=== PATIENT | male | born 1960 | race Caucasian/White ===

== ENCOUNTER → 2017-10-18 | Outpatient (REF) | payer MEDICARE, MEDICAID ==
[2017-08-13 12:51] VITALS: BMI 49.3
[~2017-10-18] MED LIST: ACE325 PO; ACET-1935 PO; ACET-1966 PO; ACET325S18 PO; ALB18R INH; ALP25 PO; ALPR-429 PO; ASPI-715 PO; ATOR40TA69 PO; AUG500 PO; AUG875 PO; BACDS PO; BANA1PAC PO; BIS10S PR; CARB15DR93 OT; CEF300 PO; CEFD300C35 PO; CEFE1FRO2 IV; CEFI400C PO; CEFT1VIA57 IV; CEP500 PO; CEPH-13 PO; CEPH500C24 PO; CHOL500050 PO; CITA-139 PO; CITA-155 PO; CITA-156 PO; CLOP75TA PO; CLOP75TA43 PO; COL30T TOP; CYC10 PO; CYCL10TA29 PO; DABI150C3 PO; DIA5 PO; DIAZ-305 PO; DIPH-464 PO; DIPH-740 PO; DOC100 PO; DOCU-416 PO; DULO30CA6 PO; DULO60CA7 PO; Diabetic Supplies; Docusate Sodium PO; ENO100I IV; ENOX120D5 SQ; ENOX120D8 SQ; ERYT400T73 PO; FAM20 PO; FAMO-67 PO; FAMO10TA89 PO; FAMO20TA28 PO; FENT-21 TD; FENT-23 TD; FERR325T14 PO; FIB PO; FLU150 PO; FLUC100T39 PO; FLUC200T52 PO; FLUC200T56 PO; FURO20TA19 PO; FURO40TA35 PO; GAB300 PO; GABA-1 PO; GABA-503 PO; GABA-549 PO; GEMF600T91 PO; GLY5 PO; HYDR12.561 PO; HYDR2TAB4 PO; HYDR2TAB74 PO; HYOS0.3738 PO; INSU100C10 SQ; INSU100C12 SQ; INSU100C14 SQ; INSU100I28 SQ; INSU100I35 SQ; INSU100I5 SQ; INSU100I5 SUBQ; INSU100V24 SQ; INSU100V28 SQ; LACT10SO58 PO; LANI SC; LANI SQ; LANI SUBQ; LEVI SUBQ; LEVO-85 PO; LEVO250T55 PO; LID5T TOP; LIDO30CR3 TP; LIDO5CRE13 TP; LIN600 PO; LISI5TAB25 PO; LOP2 PO; LOR5 PO; LOR5/325 PO; MAGN400T36 PO; MECL-111 PO; MECL12.5 PO; MET10 PO; MET500 PO; METF-1 PO; METF-410 PO; METF-420 PO; METH1TAB65 PO; METO-233 PO; METO-253 PO; METO-734 PO; METO-785 PO; METO25TA93 PO; METR-160 PO; MIR PO; MORP-46 PO; MORS15 PO; NA P133E21 RC; NAPR-724 PO; NEED-653; NEOPT TOP; NIT100 PO; NITR-105 PO; NITR-57; NITR-57 PO; NOR10 PO; NORT50CA40 PO; NYST15CR32 TOP; NYST15CR32 TP; NYST15PO12 TP; NYST15PO4 TP; NYST1POW24 TOP; NYST1POW27 TOP; OMEP-218 PO; ONDA4TAB PO; ONDA4TAB97 PO; OXYB10TA21 PO; OXYB5TAB86 PO; OXYC-373 PO; OXYC-375 PO; OXYC-489 PO; OXYC-857 PO; OXYC-865 PO; OXYC-870 PO; OXYC10TA67 PO; OXYGENHOME INH; OXYM3SPR NS; PAN40 PO; PANT40TA63 PO; PANT40TA65 PO; PER PO; PHEN-529 PO; PHENA200 PO; POLY17PO25 PO; POLY17PO33 PO; POTA20TA85 PO; PRED20TA6 PO; PRO25 PO; PROM-110 PO; PROP10TA58 PO; RIVA10TA PO; RIVA20TA PO; SITA100T9 PO; STOOL SOFTNER; SUCR1TAB PO; SULF-198 PO; SULF1TAB24 PO; SUMA50TA35 PO; TEMA-55 PO; TETR-30 PO; TIGE50VI6 IV; TRAM-420 PO; TRAZ-156 PO; Trimethoprim/Sulfamethoxazole PO; VER40 PO; VERA80TA25 PO; WAR5 PO; WARF3TAB43; WHEE1EAC19 MC; ZOL5 PO; [UNRECOGNIZED DRUG - CODE] IR; [UNRECOGNIZED DRUG - CODE] PO; [UNRECOGNIZED DRUG - CODE] PO; [UNRECOGNIZED DRUG - CODE] TOP; [UNRECOGNIZED DRUG - OTHER] PO; [UNRECOGNIZED DRUG - REMARK]; [UNRECOGNIZED DRUG - SUPPLY]
== END ==
LOC: ZZSENDIN 17:52
PROVIDERS: ATTEND Nurse Practitioner Family
DX: R10.9 Unspecified abdominal pain (principal); R82.90 Unspecified abnormal findings in urine
CPT/HCPCS: 81001; 82040; 82150; 82247; 82310; 82374; 82435; 82565; 82947; 83690; 84075; 84132; 84155; 84295; 84450; 84460; 84520

== ENCOUNTER → 2017-10-19 | Outpatient (CLI) | payer MEDICARE, MEDICAID ==
[2017-08-13 12:51] VITALS: BMI 49.3
[~2017-10-19] MED LIST changes: +FERR-53 PO; -FERR325T14 PO
[2017-10-19 16:08] LABS: PLATELET COUNT, AUTOMATED 334 K/uL (150-450)
== END ==
LOC: LAB 15:18
PROVIDERS: ATTEND Nurse Practitioner Family
DX: N39.0 Urinary tract infection, site not specified (principal); B96.89 Other specified bacterial agents as the cause of diseases classified elsewhere; R10.9 Unspecified abdominal pain
CPT/HCPCS: 36415; 82040; 82247; 82310; 82374; 82435; 82565; 82947; 84075; 84132; 84155; 84295; 84450; 84460; 84520; 85025; 87077; 87088; 87186

== ENCOUNTER 2017-10-20 03:04 | Emergency (ER) | payer MEDICARE, MEDICAID ==
[2017-08-13 12:51] VITALS: Ht 170.2 cm; Wt 120.2 kg
[~2017-10-20] VITALS: Ht 170.2 cm; Wt 120.2 kg
[~2017-10-20 03:04] MED LIST changes: -CLOP75TA PO; -DULO60CA7 PO
[2017-10-20] MEDS ORDERED: ACETAMINOPHEN 500 MG TAB PO ONE (03:55)
[2017-10-20] MEDS ORDERED: NS 0.9% 50 ML VIAL 100 ML ONE (04:04)
[2017-10-20] MEDS ORDERED: IOPAMIDOL 76% 75 ML INFUS BTL 75 ML ONE (04:04)
--- NOTE | 2017-10-20 04:11 | EKG ---
FACILITY: [facility] PATIENT NAME: GEORGE ROY : [id number] MR: [id number] V: [id number] EXAM DATE: ORDERING PHYSICIAN: SOHA OTERO TECHNOLOGIST: JANE Garcias Reason : SOB Blood Pressure : / mmHG Vent. Rate : 111 BPM Atrial Rate : 111 BPM P-R Int : 122 ms QRS Dur : 082 ms QT Int : 344 ms P-R-T Axes : 034 094 054 degrees QTc Int : 467 ms Sinus tachycardia Rightward axis Nonspecific ST abnormality Abnormal ECG When compared with ECG of 14-AUG-2017 19:39, Nonspecific T wave abnormality no longer evident in Anterior leads Confirmed by RODRIGO BARRIGA ([id number]) on 10/20/2017 1:52:37 PM Referred By: BRANDEN Confirmed By:RODRIGO BARRIGA
[2017-10-20] MEDS ORDERED: INSU100I35 SQ (04:48)
[2017-10-20] MEDS ORDERED: NYST15PO4 TP (04:48)
[2017-10-20] MEDS ORDERED: GABA-549 PO (04:48)
[2017-10-20] MEDS ORDERED: CLOP75TA PO (04:48)
[2017-10-20] MEDS ORDERED: RIVA20TA PO (04:48)
[2017-10-20] MEDS ORDERED: DULO60CA7 PO (04:48)
[2017-10-20] MEDS ORDERED: oxyCODONE HCL 5 MG CAP PO ONE ×2 (04:50→09:10)
--- NOTE | 2017-10-20 05:19 | ER Report ---
History and Physical Time Seen By MD: 03:20 Hx. of Stated Complaint: PATIENT STATES HE HAS HAD A FEVER OF 102, HE HAS BEEN HAVING GENERAL BODY ACHES FOR 3DAYS. PATIENT HAS ALSO VOMITED. PATIENT WAS SEEN AT HIS PCP OFFICE YESTERDAY AND DIAGNOSED WITH A UTI. PATIENT CAME UP BECAUSE HE IS HAVING A LOT OF PAIN. PATIENT DID NOT TAKE ANY MEDICATION TO HELP WITH FEVER. PATIENT HAS A CHRONIC DECUB ULCER ON HIS COCCYX. (SOHA OTERO MD) HPI/ROS This is a 57-year-old male with an extensive medical history and multiple chronic medical issues. He presents to the emergency department with an overall feeling unwell. It is difficult to elicit what is an acute complaint versus chronic. He states that he has had a worsening of his chronic pain but does not describe focal pain. Also states that he has been increasingly more short of breath for the past 3 days and earlier yesterday developed a fever. He saw his primary provider who obtained lab data to include a UA. His primary provider called him and said that she wanted to treat him with antibiotics for a urinary tract infection. He denies chest pain, abdominal pain, or nausea vomiting or diarrhea. He states that he is compliant with his medications. He has not picked up his antibiotic for his urinary tract infection that was given to him earlier yesterday. 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 (ENRICO FATIMA MD) Allergies: Coded Allergies: vancomycin (Verified Allergy, Severe, Respiratory arrest due to bronchospasm, 10/20/17) Respiratory arrest due to bronchospasm ciprofloxacin (Verified Allergy, Intermediate, TINGLING, 10/20/17) clindamycin (Verified Allergy, Intermediate, RASH, 10/20/17) perflutren (Verified Adverse Reaction, Severe, Respiratory Arrest, 10/20/17) amoxicillin (Verified Adverse Reaction, Mild, N/V/D, 10/20/17) 07/2017: Pt tolerated Unasyn without difficulty clavulanic acid (Verified Adverse Reaction, Mild, N/V/D, 10/20/17) Uncoded Allergies: contrast definity (Allergy, Severe, MENTAL STATUS CHANGES, 08/15/17) went unresponsive Home Meds Active Scripts NYSTATIN [id number] UNT/ML Topical Cream (NYSTATIN 799064 UNT/ML Topical Cream) 15 Gm Cream..g., 1 JAEL TOP BID, #60 GM 5 Refills Prov:LENIN ANTONIO APRN-C 10/19/17 Cephalexin (KEFLEX) 500 Mg Capsule, 1 CAP PO BID, #20 CAP 0 Refills Prov:LENIN ANTONIO APRN-C 10/19/17 Oxycodone Hcl 10 Mg Tab (OXYCODONE HCL 10 MG TAB) 10 Mg Tablet, 1 TAB PO Q6H Y for PAIN, #120 TAB 0 Refills Prov:LENIN ANTONIO APRN-C 10/13/17 Potassium Chloride (KLOR-CON M20) 20 Meq Tab.er.prt, 1 TAB PO QDAY, #90 TAB 1 Refill Prov:LENIN ANTONIO APRN-C 10/05/17 Pantoprazole Sodium (PANTOPRAZOLE SODIUM) 40 Mg Tablet.dr, 40 MG PO QDAY, #90 TAB.SR 1 Refill Prov:LENIN ANTONIO APRN-C 10/05/17 Citalopram Hydrobromide (CITALOPRAM HBR) 20 Mg Tablet, 1 TAB PO DAILY, #90 TAB 1 Refill Prov:LENIN ANTONIO APRN-C 09/29/17 Oxygen (OXYGEN) Inha, 3 L INH DAILY, #1 EACH Prov:LENIN ANTONIO APRN-C 06/28/17 Furosemide (LASIX) 40 Mg Tablet, 1 TAB PO BID, #180 TAB 1 Refill Prov:LENIN ANTONIO APRN-C 05/31/17 Atorvastatin Calcium (ATORVASTATIN CALCIUM) 40 Mg Tablet, 1 TAB PO QHS, #90 TAB 1 Refill Prov:LENIN ANTONIO APRN-C 04/12/17 Metoprolol Succinate (TOPROL XL) 50 Mg Tab.er.24h, 0.5 TAB PO QDAY, #30 TAB 5 Refills Prov:LENIN ANTONIO APRN-C 03/20/17 Carbamide Peroxide (EAR WAX REMOVAL) 15 Ml Drops, 3 ML OT BID for 5 Days, #1 BOTTLE Prov:ELHAM CASH MD 03/16/17 [Diabetic Supplies] No Conflict Check Prov:LENIN ANTONIO APRN [facility] 03/06/17 Metformin Hcl (METFORMIN HCL) 1,000 Mg Tablet, 1 TAB PO BID, #180 TAB 4 Refills Prov:MERLE CULVER MD 12/07/16 Magnesium Oxide (MAGNESIUM OXIDE) 400 Mg Tablet, 1 TAB PO TID, #180 TAB 2 Refills Prov:LENIN ANTONIO APRN [facility] 11/15/16 Ferrous Sulfate (FERROUS SULFATE) 325 Mg Tablet, 1 TAB PO TID, #60 TAB 2 Refills Prov:LENIN ANTONIO APRN [facility] 11/15/16 [place], Insulin Disposable (Bd Ultra-Fine Pen Needle) 1 Each Dis.needle, MISC QDAY, #100 3 Refills Use Daily with insulin pens Prov:LENIN ANTONIO APRN [facility] 09/16/15 Reported Medications Rivaroxaban 20 Mg (XARELTO 20 MG) 20 Mg Tablet, 20 MG PO QDAY, TAB 10/20/17 Gabapentin (GABAPENTIN) 300 Mg Capsule, 1200 MG PO BID, CAPSULE 10/20/17 Insulin Aspart (NOVOLOG FLEXPEN) 100 Unit/1 Ml Insuln.pen, 15-30 UNIT SQ TIDAC 10/20/17 Nystatin 100,000 Unit/Gm Top Powder (NYSTATIN 100,000 UNIT/GM TOP POWDER) 15 Gm Powder, 1 JAEL TP TID, TUBE 10/20/17 Duloxetine HCl (Duloxetine HCl) 60 Mg Capsule.dr, 30 MG PO QDAY 10/20/17 Clopidogrel Bisulfate (CLOPIDOGREL) 75 Mg Tablet, 1 TAB PO QDAY, TAB 10/20/17 Discontinued Reported Medications Warfarin Sodium (WARFARIN SODIUM) 3 Mg Tablet 09/26/17 Insulin Detemir (Levemir Flextouch) 100 Unit/1 Ml Insuln.pen, 65 SUBQ QPM 08/12/17 Insulin Detemir (Levemir Flextouch) 100 Unit/1 Ml Insuln.pen, 70 SUBQ QAM 08/12/17 Gabapentin (GABAPENTIN) 300 Mg Capsule, 600 MG PO QID, CAPSULE 08/12/17 Discontinued Scripts Trazodone Hcl (TRAZODONE HCL) 50 Mg Tablet, 1 TAB PO QHS Y for INSOMNIA, #90 TAB 1 Refill Prov:LENIN ANTONIO APRN-C 10/19/17 Insulin Aspart (NOVOLOG FLEXPEN) 100 Unit/1 Ml Insuln.pen, 30 UNIT SQ TIDAC, # 15 EACH 12 Refills Prov:LENIN ANTONIO APRN-C 10/19/17 Collagenase (Santyl) 250 Unit/Gram Oint...g., 1 JAEL TOP DAILY, #60 G Prov:LENIN ANTONIO APRN-C 09/21/17 Oxycodone Hcl 10 Mg Tab (OXYCODONE HCL 10 MG TAB) 10 Mg Tablet, 1 TAB PO Q6H Y for PAIN, #120 TAB 0 Refills Prov:LENIN ANTONIO APRN-C 06/30/17 Reviewed Nurses Notes: Yes Old Medical Records Reviewed: Yes (SOHA OTERO MD) Hx Smoking: No Smoking Status: Never Smoker Exposure to Second Hand Smoke?: Yes Hx Substance Use Disorder: No Hx Alcohol Use: Yes (SOHA OTERO MD) Constitutional Vital Sign - Last 24 Hours 10/20/17 10/20/17 10/20/17 10/20/17 03:06 03:08 03:17 03:19 Temp 100.1 Pulse 120 122 Resp 24 B/P (MAP) 143/64 (90) 143/64 139/82 (101) Pulse Ox 91 92 10/20/17 10/20/17 10/20/17 10/20/17 03:30 03:34 03:49 04:00 Pulse 122 114 B/P (MAP) 133/74 (93) 132/69 (90) Pulse Ox 93 90 10/20/17 10/20/17 10/20/17 10/20/17 04:34 04:49 04:54 05:00 Pulse ??? 109 ??? B/P (MAP) ???/??? (1665) Pulse Ox 92 94 94 10/20/17 10/20/17 10/20/17 10/20/17 05:09 05:24 05:30 05:39 Pulse 107 102 101 B/P (MAP) 141/74 (96) Pulse Ox 94 94 96 10/20/17 10/20/17 10/20/17 10/20/17 05:44 05:48 05:49 05:59 Temp 99.4 99.4 Pulse 104 98 Pulse Ox 94 10/20/17 10/20/17 10/20/17 10/20/17 06:00 06:44 06:49 07:00 Pulse 109 103 B/P (MAP) 126/79 (95) 121/61 (81) Pulse Ox 92 93 10/20/17 10/20/17 10/20/17 10/20/17 07:04 07:19 07:30 07:34 Pulse 100 95 96 B/P (MAP) 111/70 (84) Pulse Ox 93 94 94 10/20/17 10/20/17 10/20/17 08:09 11:01 11:15 Temp 98.6 Pulse 111 B/P (MAP) 140/107 (118) Pulse Ox 90 Intake and Output 10/20/17 10/20/17 10/21/17 15:00 23:00 07:00 Intake Total 100 ml Balance 100 ml (ENRICO FATIMA MD) Physical Exam General Appearance: The patient is alert, has no immediate need for airway protection and no signs of toxicity. Eyes: Pupils equal and round no pallor or injection. ENT, Mouth: Mucous membranes are moist. Respiratory: There are no retractions, lungs are clear to auscultation. Cardiovascular: Tachycardic with regular rhythm. Gastrointestinal: Abdomen is soft and non tender, no masses, bowel sounds normal. : perineum is erythematous and there is diffuse patches of yeast. No TTP Skin: Warm and dry, stage 2 decubitus ulcer on the sacrum Musculoskeletal: Neck is supple non tender. Extremities are nontender, nonswollen and have full range of motion. DIFFERENTIAL DIAGNOSIS: After history and physical exam differential diagnosis was considered for adult fever including but not limited to viral syndromes including influenza, urinary tract infection, pneumonia and sepsis. (SOHA OTERO MD) Medical Decision Making Data Points Result Diagram: 10/20/17 0510 10/20/17 0510 Laboratory Hematology Test 10/20/17 04:28 10/20/17 05:00 10/20/17 05:10 10/20/17 09:09 Urine Color Yellow Urine Clarity Clear Urine pH 6.0 pH (4.8-9.5) Urine Specific [place] 1.022 Urine Protein Negative mg/dL (NEGATIVE) Urine Glucose (UA) 500 mg/dL (NEGATIVE) Urine Ketones Negative mg/dL (NEGATIVE) Urine Blood Large (NEGATIVE) Urine Nitrite Positive (NEGATIVE) Urine Bilirubin Negative (NEGATIVE) Urine Urobilinogen Negative mg/dL (0.2-1.9) Urine Leukocyte Esterase Moderate (NEGATIVE) Urine RBC 30 /HPF (0-2/HPF) Urine WBC 44 /HPF (0-5/HPF) Urine Squamous Epithelial Cells Few /LPF (NONE-FEW) Urine Transitional Epithelial Cells Few /LPF (NONE-FEW) Urine Bacteria Moderate /HPF (NONE-FEW) Urine Mucus None /HPF (NONE-FEW) Influenza Type A Antigen Negative (NEGATIVE) Influenza Type B Antigen Negative (NEGATIVE) Red Blood Count 4.56 M/uL (4.00-5.60) Mean Corpuscular Volume 75.7 fL (80.0-96.0) Mean Corpuscular Hemoglobin 24.9 pg (26.0-33.0) Mean Corpuscular Hemoglobin Concent 32.9 g/dL (32.0-36.0) Red Cell Distribution Width 18.6 % (11.5-14.5) Mean Platelet Volume 6.7 fL (7.2-11.1) Neutrophils (%) (Auto) 88.1 % (39.4-72.5) Lymphocytes (%) (Auto) 5.2 % (17.6-49.6) Monocytes (%) (Auto) 5.5 % (4.1-12.4) Eosinophils (%) (Auto) 0.4 % (0.4-6.7) Basophils (%) (Auto) 0.8 % (0.3-1.4) Nucleated RBC Relative Count (auto) 0.0 /100WBC Neutrophils # (Auto) 9.7 K/uL (2.0-7.4) Lymphocytes # (Auto) 0.6 K/uL (1.3-3.6) Monocytes # (Auto) 0.6 K/uL (0.3-1.0) Eosinophils # (Auto) 0.0 K/uL (0.0-0.5) Basophils # (Auto) 0.1 K/uL (0.0-0.1) Nucleated RBC Absolute Count (auto) 0.00 K/uL Peripheral Blood Smear No Y/N Sodium Level 130 mmol/L (137-145) Potassium Level 4.8 mmol/L (3.5-5.0) Chloride Level 92 mmol/L (98-107) Carbon Dioxide Level 27 mmol/L (22-30) Blood Urea Nitrogen 16 mg/dl (9-21) Creatinine 0.50 mg/dl (0.66-1.25) Glomerular Filtration Rate Calc > 60.0 Random Glucose 353 mg/dl (75-110) Lactate 0.9 mmol/L (0.7-2.1) Calcium Level 8.6 mg/dl (8.4-10.2) Total Bilirubin 0.6 mg/dl (0.2-1.3) Aspartate Amino Transf (AST/SGOT) 16 U/L (0-35) Alanine Aminotransferase (ALT/SGPT) 26 U/L (0-56) Alkaline Phosphatase 200 U/L (0-126) Troponin I < 0.012 ng/ml Total Protein 7.0 gm/dl (6.3-8.2) Albumin 3.3 g/dl (3.5-5.0) Prothrombin Time 15.8 seconds (12.0-14.4) Prothromb Time International Ratio 1.25 Activated Partial Thromboplast Time 34 seconds (23-35) D-Dimer Quantitative (PE/DVT) 0.96 ug/ml (0-0.50) Test 10/20/17 09:29 Magnesium Level 1.6 mg/dl (1.7-2.2) Chemistry Test 10/20/17 04:28 10/20/17 05:00 10/20/17 05:10 10/20/17 09:09 Urine Color Yellow Urine Clarity Clear Urine pH 6.0 pH (4.8-9.5) Urine Specific [place] 1.022 Urine Protein Negative mg/dL (NEGATIVE) Urine Glucose (UA) 500 mg/dL (NEGATIVE) Urine Ketones Negative mg/dL (NEGATIVE) Urine Blood Large (NEGATIVE) Urine Nitrite Positive (NEGATIVE) Urine Bilirubin Negative (NEGATIVE) Urine Urobilinogen Negative mg/dL (0.2-1.9) Urine Leukocyte Esterase Moderate (NEGATIVE) Urine RBC 30 /HPF (0-2/HPF) Urine WBC 44 /HPF (0-5/HPF) Urine Squamous Epithelial Cells Few /LPF (NONE-FEW) Urine Transitional Epithelial Cells Few /LPF (NONE-FEW) Urine Bacteria Moderate /HPF (NONE-FEW) Urine Mucus None /HPF (NONE-FEW) Influenza Type A Antigen Negative (NEGATIVE) Influenza Type B Antigen Negative (NEGATIVE) White Blood Count 11.0 k/uL (4.5-11.0) Red Blood Count 4.56 M/uL (4.00-5.60) Hemoglobin 11.3 g/dL (14.0-18.0) Hematocrit 34.5 % (42.0-52.0) Mean Corpuscular Volume 75.7 fL (80.0-96.0) Mean Corpuscular Hemoglobin 24.9 pg (26.0-33.0) Mean Corpuscular Hemoglobin Concent 32.9 g/dL (32.0-36.0) Red Cell Distribution Width 18.6 % (11.5-14.5) Platelet Count 295 K/uL (150-450) Mean Platelet Volume 6.7 fL (7.2-11.1) Neutrophils (%) (Auto) 88.1 % (39.4-72.5) Lymphocytes (%) (Auto) 5.2 % (17.6-49.6) Monocytes (%) (Auto) 5.5 % (4.1-12.4) Eosinophils (%) (Auto) 0.4 % (0.4-6.7) Basophils (%) (Auto) 0.8 % (0.3-1.4) Nucleated RBC Relative Count (auto) 0.0 /100WBC Neutrophils # (Auto) 9.7 K/uL (2.0-7.4) Lymphocytes # (Auto) 0.6 K/uL (1.3-3.6) Monocytes # (Auto) 0.6 K/uL (0.3-1.0) Eosinophils # (Auto) 0.0 K/uL (0.0-0.5) Basophils # (Auto) 0.1 K/uL (0.0-0.1) Nucleated RBC Absolute Count (auto) 0.00 K/uL Peripheral Blood Smear No Y/N Glomerular Filtration Rate Calc > 60.0 Lactate 0.9 mmol/L (0.7-2.1) Calcium Level 8.6 mg/dl (8.4-10.2) Total Bilirubin 0.6 mg/dl (0.2-1.3) Aspartate Amino Transf (AST/SGOT) 16 U/L (0-35) Alanine Aminotransferase (ALT/SGPT) 26 U/L (0-56) Alkaline Phosphatase 200 U/L (0-126) Troponin I < 0.012 ng/ml Total Protein 7.0 gm/dl (6.3-8.2) Albumin 3.3 g/dl (3.5-5.0) Prothrombin Time 15.8 seconds (12.0-14.4) Prothromb Time International Ratio 1.25 Activated Partial Thromboplast Time 34 seconds (23-35) D-Dimer Quantitative (PE/DVT) 0.96 ug/ml (0-0.50) Test 10/20/17 09:29 Magnesium Level 1.6 mg/dl (1.7-2.2) Coagulation Test 10/20/17 09:09 Prothrombin Time 15.8 seconds Prothromb Time International Ratio 1.25 Activated Partial Thromboplast Time 34 seconds D-Dimer Quantitative (PE/DVT) 0.96 ug/ml Urinalysis Test 10/20/17 04:28 Urine Color Yellow Urine Clarity Clear Urine pH 6.0 pH (4.8-9.5) Urine Specific [place] 1.022 Urine Protein Negative mg/dL (NEGATIVE) Urine Glucose (UA) 500 mg/dL (NEGATIVE) Urine Ketones Negative mg/dL (NEGATIVE) Urine Blood Large (NEGATIVE) Urine Nitrite Positive (NEGATIVE) Urine Bilirubin Negative (NEGATIVE) Urine Urobilinogen Negative mg/dL (0.2-1.9) Urine Leukocyte Esterase Moderate (NEGATIVE) Urine RBC 30 /HPF (0-2/HPF) Urine WBC 44 /HPF (0-5/HPF) Urine Squamous Epithelial Cells Few /LPF (NONE-FEW) Urine Transitional Epithelial Cells Few /LPF (NONE-FEW) Urine Bacteria Moderate /HPF (NONE-FEW) Urine Mucus None /HPF (NONE-FEW) (ENRICO FATIMA MD) Microbiology Microbiology Date/Time Source Procedure Growth Status 10/20/17 05:10 Blood Blood Culture - Preliminary NO GROWTH SO FAR, SET LATE. REINCUBATED Resulted 10/20/17 05:00 Blood Blood Culture - Preliminary NO GROWTH SO FAR, SET LATE. REINCUBATED Resulted (ENRICO FATIMA MD) EKG/Imaging EKG Interpretation 12 lead EKG: Rhythm: sinus tachycardia Luana: normal QRS: normal ST segments: non specific t wave flattening Same as 08/14/17 Monitor Interpretation: Sinus Tachycardia (SOHA OTERO MD) Imaging CTA of the chest for PE: IMPRESSION: 1. Negative CTA for PE. 2. Interval development of numerous parenchymal and subpleural roundish noncavitating soft tissue densities. In the context of tachycardia and fever the possibility of septic emboli is raised. Other infectious or inflammatory processes not excluded. I doubt these represent metastatic changes. Recommend clinical correlation and appropriate follow-up. Ultrasound of upper and lower extremities: There is no signs of DVT in either upper or lower extremities. (ENRICO FATIMA MD) ED Course/Re-evaluation ED Course CT of the chest revealed septic emboli most likely. Patient was given meropenem gram IV. Ultrasound of bilateral upper and lower extremities did not reveal any DVT. 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 I discussed the case with Dr. Steiner, hospitalist here at [facility]. He feels the patient would be best served going back to [facility] where he can receive a higher level of care and vascular surgery if needed. She is sent to [facility] on 08/16/2017 for sepsis. At that time Dr. Nails had discussed the case with Dr. Patel (CT surgery) about the patient and he agreed that he needed to be transferred to [facility] for higher level of care. Case had been discussed with Dr. Landin (Hospitalist) who has accepted him. I then discussed the case with Dr. Hilton, hospitalist at [facility]. She requested I call the vascular surgeon. I then talked to Dr. Briggs CV surgeon and he agrees to accept the patient. I then discussed the case with Dr. Hilton at 1250. She accepts patient. Report given. Patient will be transferred to [facility] for further evaluation and treatment. Re-evaluation Medical decision-making includes but not to pulmonary embolus, septic emboli, pneumonia, sepsis. Decision to Disposition Date: Oct 20, 2017 Decision to Disposition Time: 13:10 (ENRICO FATIMA MD) Depart Departure Latest Vital Signs Vital Signs Date Time Temp Pulse Resp B/P (MAP) Pulse Ox O2 Delivery O2 Flow Rate FiO2 10/20/17 11:15 111 90 10/20/17 11:01 140/107 (118) 10/20/17 08:09 98.6 10/20/17 03:08 24 (ENRICO FATIMA MD) Impression: Primary Impression: Septic pulmonary embolism Condition: Condition Unchanged Disposition: XFER TO ACUTE CARE HOSPITAL Referrals: LENIN ANTONIO APRN [employer] LEADER-C (PCP) Problem Qualifiers Primary Impression: Septic pulmonary embolism Chronicity: acute Acute cor pulmonale presence: without acute cor pulmonale Qualified Codes: I26.90 - Septic pulmonary embolism without acute cor pulmonale SOHA OTERO MD Oct 20, 2017 05:19 ENRICO FATIMA MD Oct 20, 2017 12:30
[2017-10-20 05:20] LABS: PLATELET COUNT, AUTOMATED 295 K/uL (150-450)
[2017-10-20] MEDS ORDERED: cefTRIAXone 1 GM VIAL IVP ONE (06:15)
--- NOTE | 2017-10-20 07:31 | RADIOLOGY IMAGING REPORT ---
FACILITY: [facility] [place] PATIENT NAME: Rodrigue Phillips : 1960 MR: [id number] V: [id number] EXAM DATE: ORDERING PHYSICIAN: SOHA OTERO TECHNOLOGIST: Location: [facility] Patient: Rodrigue Phillips : 1960 Visit/Account:[id number] Date of Sevice: 10/20/2017 CTA CHEST WW/O CNTR (PULM ANG) HISTORY: acute sob with tachycardia and fever CTA CHEST WW/O CNTR (PULM ANG) TECHNIQUE: CTA chest with contrast. Axial imaging from the apex through the upper abdomen. 3D coron al slab MIPs and 2D reconstructions in the coronal and sagittal planes were also created. CONTRAST: 75 cc of [id number] COMPARISON: 07/23/2017 One of the following dose optimization techniques was utilized in the performance of this exam: Autom ated exposure control; adjustment of the mA and/or kV according to the patient's size; or use of an i terative reconstruction technique. Specific details can be referenced in the facility's radiology C T exam operational policy. FINDINGS: Vessels: No obvious emboli in the visualized pulmonary vasculature. Overall appearance of the 8 g si milar to the CT scan from 07/23/2017 Heart and pericardium: Negative Mediastinum and hilum: Negative. Lymph nodes: Scattered anterior mediastinal pretracheal and hilar lymph nodes. Largest paratracheal lymph node (image 99 series 5) measuring 1.8 cm slightly increasing in size when compared to the prev ious CT scan. Increasing size of a pretracheal lymph node (image 129). The perihilar lymph nodes are also reidentified and slightly more prominent in size. Lungs/pleura: There are scattered parenchymal and pleural-based roundish nodular densities in both l [place] sy ranging in size ranging from 3 to 4 mm up to 1.5 cm in greatest dimension. Most are approx imately a centimeter in size or less. There appears to be approximately 18-20 in the right lung and 1 0-12 and the left lung. Visualized upper abdomen: Negative. Lower neck: Negative. Bones/soft tissues: Negative. IMPRESSION: 1. Negative CTA for PE. 2. Interval development of numerous parenchymal and subpleural roundish noncavitating soft tissue den sities. In the context of tachycardia and fever the possibility of septic emboli is raised. Other inf ectious or inflammatory processes not excluded. I doubt these represent metastatic changes. Recommend clinical correlation and appropriate follow-up. Results were discussed with SOHA OTERO 's replacement at 10/20/2017 7:25 AM. . Report Dictated By: Jona Hester MD at 10/20/2017 7:01 AM Report E-Signed By: Jona Hester MD at 10/20/2017 7:25 AM WSN:[id number]
[2017-10-20] MEDS ORDERED: MEROPENEM 1 GM VIAL 1 GM in NS(*) 0.9% 100 ML ADDVANT BAG 100 ML IVPB ONE (08:30)
[2017-10-20] MEDS ORDERED: ONDANSETRON 4 MG/2 ML VIAL IVP ONE (10:05)
--- NOTE | 2017-10-20 11:54 | RADIOLOGY IMAGING REPORT ---
FACILITY: [facility] [place] PATIENT NAME: Rodrigue Phillips : 1960 MR: [id number] V: [id number] EXAM DATE: ORDERING PHYSICIAN: ENRICO FATIMA TECHNOLOGIST: Location: [facility] [place] Patient: Rodrigue Phillips : 1960 Visit/Account:[id number] Date of Sevice: 10/20/2017 VENOUS DOPP LOWER BILAT EXTREM HISTORY: pulmonary septic emboli ADDITIONAL HISTORY: None. COMPARISON: Comparison study March 2011 which was negative for deep vein thrombosis FINDINGS: Grayscale, duplex and color Doppler interrogation of the bilateral lower extremity deep veins from co mmon femoral vein to proximal calf was completed. The greater saphenous vein in the right and left pr oximal thigh was evaluated using similar technique. RIGHT lower extremity: Common femoral vein - Negative. Femoral vein - Negative. Deep femoral vein - Negative. Popliteal vein - Negative. Visualized deep calf veins - Negative. Popliteal fossa: Negative. Greater saphenous vein in the proximal thigh: Negative. LEFT lower extremity: Common femoral vein - Negative. Femoral vein - Negative. Deep femoral vein - Negative. Popliteal vein - Negative. Visualized deep calf veins - Negative. Popliteal fossa: Negative. Greater saphenous vein in the proximal thigh: Negative. IMPRESSION: Normal exam. No evidence of DVT in the legs. Report Dictated By: Bart Hayes MD at 10/20/2017 11:47 AM Report E-Signed By: Bart Hayes MD at 10/20/2017 11:49 AM WSN:[id number]
--- NOTE | 2017-10-20 12:05 | RADIOLOGY IMAGING REPORT ---
FACILITY: [facility] [place] PATIENT NAME: Rodrigue Phillips : 1960 MR: [id number] V: [id number] EXAM DATE: ORDERING PHYSICIAN: ENRICO FATIMA TECHNOLOGIST: Location: Patient: Rodrigue Phillips : 1960 Visit/Account:[id number] Date of Sevice: 10/20/2017 Venous Doppler ultrasound bilateral upper extremity Indication: History of right clot in arm. History of right internal jugular shunt broke. Comparison: None available. Findings: There is normal compressibility and blood flow of the bilateral internal jugular vein. There is normal blood flow to the left subclavian vein. There is normal compressibility and blood flow identified within the bilateral axillary vein, brachia l veins, basilic and cephalic veins. Subcutaneous tissues are unremarkable. IMPRESSION: 1. No evidence of deep venous thrombosis of the bilateral upper extremity. Report Dictated By: Chu Gardiner at 10/20/2017 12:00 PM Report E-Signed By: Chu Gardiner at 10/20/2017 12:02 PM WSN:[id number]
[2017-10-20 12:13] LABS: INR 1.25
[2017-10-20 14:00] VITALS: BP 120/80
== END 2017-10-20 15:00 | disposition short-term general hospital (02) ==
LOC: ER 03:09
DX: I26.90 Septic pulmonary embolism without acute cor pulmonale (principal); E11.9 Type 2 diabetes mellitus without complications; I10 Essential (primary) hypertension; Z87.440 Personal history of urinary (tract) infections; R53.81 Other malaise; R06.02 Shortness of breath
CPT/HCPCS: 36415; 71275; 81001; 83605; 83735; 84484; 85025; 85379; 85610; 85730; 87040; 87077; 87088; 87186; 87502; 93005; 93970; 96365; 96375; 99285; A9270; J0696; J2185; J2405; J7050; Q9967; 82040; 82247; 82310; 82374; 82435; 82565; 82947; 84075; 84132; 84155; 84295; 84450; 84460; 84520

== ENCOUNTER → 2017-10-20 | Outpatient (CLI) | payer MEDICARE, MEDICAID ==
[2017-08-13 12:51] VITALS: BMI 49.3
== END ==
LOC: AMB 14:25
PROVIDERS: ATTEND Nurse Practitioner
DX: I26.90 Septic pulmonary embolism without acute cor pulmonale (principal)
CPT/HCPCS: A0425; A0426

== ENCOUNTER → 2017-10-20 | Outpatient (CLI) | payer MEDICARE, MEDICAID ==
[2017-08-13 12:51] VITALS: BMI 49.3
== END ==
LOC: AMB 02:47
PROVIDERS: ATTEND Nurse Practitioner
DX: R53.1 Weakness (principal); R53.81 Other malaise; R52 Pain, unspecified
CPT/HCPCS: A0425; A0429

== ENCOUNTER 2017-11-23 14:11 | Emergency (ER) | payer MEDICARE, MEDICAID ==
[2017-08-13 12:51] VITALS: Ht 170.2 cm; Wt 120.2 kg
[~2017-11-23] VITALS: Ht 170.2 cm; Wt 120.2 kg
[~2017-11-23 14:11] MED LIST changes: +CLOP75TA PO; +DULO60CA7 PO; -NAPR-724 PO; +NAPR500T31 PO; +WARF3TAB14; -WARF3TAB43
[2017-11-23] MEDS ORDERED: WARF1TAB56 PO (14:26)
[2017-11-23] MEDS ORDERED: LIDOCAINE MPF 1% 5 ML VIAL ONE (15:06)
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
--- NOTE | 2017-11-23 15:29 | RADIOLOGY IMAGING REPORT ---
FACILITY: [facility] [place] PATIENT NAME: Rodrigue Phillips : 1960 MR: [id number] V: [id number] EXAM DATE: ORDERING PHYSICIAN: ETHAN QUINTERO TECHNOLOGIST: Location: [facility] Patient: Rodrigue Phillips : 1960 Visit/Account:[id number] Date of Sevice: 11/23/2017 Technique: HUMERUS LEFT HISTORY: L arm mid line cath may be torn and retained in arm/chs Comparison studies: None FINDINGS: There is no acute fracture. The alignment of the left humerus is maintained. No radiodens e foreign body. IMPRESSION: 1. No radiodense foreign body. If high clinical suspicion remains CT would be of further utility. Report Dictated By: Epifanio Mancini DO at 11/23/2017 3:23 PM Report E-Signed By: Epifanio Mancini DO at 11/23/2017 3:25 PM WSN:[email or web address]
--- NOTE | 2017-11-23 15:29 | RADIOLOGY IMAGING REPORT ---
FACILITY: [facility] PATIENT NAME: Rodrigue Phillips : 1960 MR: [id number] V: [id number] EXAM DATE: ORDERING PHYSICIAN: ETHAN QUINTERO TECHNOLOGIST: Location: [facility] Patient: Rodrigue Phillips : 1960 Visit/Account:[id number] Date of Sevice: 11/23/2017 Technique: CHEST PA AND LAT HISTORY: L arm mid line cath may be torn and retained in arm/chs Comparison studies: Chest radiographs August 13, 2017, CTA chest October 20, 2016 FINDINGS: Present is a right IJ central venous catheter with the tip overlying the right brachiocepha lic vein. No lobar airspace consolidation. There is bibasilar vascular crowding likely secondary to inspiratory effort. No radiodense foreign body is appreciated. The cardiac silhouette is unremarka ble. IMPRESSION: 1. No radiodense retained foreign body. If high clinical suspicion remains CT would be of further u tility. Report Dictated By: Epifanio Mancini DO at 11/23/2017 3:19 PM Report E-Signed By: Epifanio Mancini DO at 11/23/2017 3:23 PM WSN:[id number]
[2017-11-23] MEDS ORDERED: traMADol 50 MG TAB PO ONE (16:00)
[2017-11-23 16:10] VITALS: BP 138/78
--- NOTE | 2017-11-23 16:10 | RADIOLOGY IMAGING REPORT ---
FACILITY: [facility] [place] PATIENT NAME: Rodrigue Phillips : 1960 MR: [id number] V: [id number] EXAM DATE: ORDERING PHYSICIAN: ETHAN QUINTERO [place]CHNOLOGIST: [place] [facility] [place]ue [place] : 1960 Visit/Account:[id number] Date of Sevice: 11/23/2017 Ultrasound and fluoroscopic guided PICC placement: History: Septic emboli. Current midline pulled out Comparison: 11/03/2017, [facility] Procedure/findings: Risks of the procedure were discussed with the patient who signed consent. Formal timeout was performed. Skin over the right upper arm was prepped and draped in a sterile fash ion. Skin and soft tissues anesthetized with 1% lidocaine. Under direct ultrasound guidance, access w as made into the right basilic vein with a micropuncture needle. Ultrasound was utilized because an appropriate vein could not be visualized or palpated. Ultrasound was also utilized to assess patency of the vessel. Ultrasound image is archived to PACS. 0.018 inch wire was advanced through the needle and needle exchanged for a peel-away sheath and vascular dilator. Dilator was removed. A 4 Ghanaian si ngle lumen power PICC which had been cut to 30 cm was advanced over the wire. Tip of the catheter is in the right subclavian vein. Patient has central venous occlusions.. Fluoroscopic image which docum ents position is archived to PACS. Both lumens could be flushed and blood withdrawn easily. Fluoroscopy time: 0.3 minutes AK: 3.6 mGy. IMPRESSION: Ultrasound and fluoroscopic guided right basilic vein PICC placement. Of note, catheter tip is in the right subclavian vein. Report Dictated By: Suha Huntley MD at 11/23/2017 4:02 PM Report E-Signed By: Suha Huntley MD at 11/23/2017 4:05 PM WSN:[email or web address]
--- NOTE | 2017-11-24 08:13 | RADIOLOGY IMAGING REPORT ---
FACILITY: [facility] PATIENT NAME: Rodrigue Phillips : 1960 MR: [id number] V: [id number] EXAM DATE: ORDERING PHYSICIAN: ETHAN QUINTERO TECHNOLOGIST: Location: [facility] Patient: Rodrigue Phillips : 1960 Visit/Account:[id number] Date of Sevice: 11/23/2017 Ultrasound and fluoroscopic guided PICC placement: History: Septic emboli. Current midline pulled out Comparison: 11/03/2017, [facility] Procedure/findings: Risks of the procedure were discussed with the patient who signed consent. Formal timeout was performed. Skin over the right upper arm was prepped and draped in a sterile fash ion. Skin and soft tissues anesthetized with 1% lidocaine. Under direct ultrasound guidance, access w as made into the right basilic vein with a micropuncture needle. Ultrasound was utilized because an appropriate vein could not be visualized or palpated. Ultrasound was also utilized to assess patency of the vessel. Ultrasound image is archived to PACS. 0.018 inch wire was advanced through the needle and needle exchanged for a peel-away sheath and vascular dilator. Dilator was removed. A 4 Polish si ngle lumen power PICC which had been cut to 30 cm was advanced over the wire. Tip of the catheter is in the right subclavian vein. Patient has central venous occlusions.. Fluoroscopic image which docum ents position is archived to PACS. Both lumens could be flushed and blood withdrawn easily. Fluoroscopy time: 0.3 minutes AK: 3.6 mGy. IMPRESSION: Ultrasound and fluoroscopic guided right basilic vein PICC placement. Of note, catheter tip is in the right subclavian vein. Report Dictated By: Suha Huntley MD at 11/23/2017 4:02 PM Report E-Signed By: Suha Huntlye MD at 11/23/2017 4:05 PM WSN:[email or web address]
[2017-11-24] MEDS ORDERED: WARF4TAB54 PO (16:55)
== END 2017-11-23 16:14 | disposition home or self-care (01) ==
LOC: ER 14:12
DX: T85.618A Breakdown (mechanical) of other specified internal prosthetic devices, implants and grafts, initial encounter (principal)
CPT/HCPCS: 36569; 71046; 73060; 76937; 99282; A9270; C1751; J2001

== ENCOUNTER → 2017-11-24 | Outpatient (REF) | payer MEDICARE, MEDICAID ==
[2017-08-13 12:51] VITALS: BMI 49.3
[~2017-11-24] MED LIST changes: +NAPR-724 PO; -NAPR500T31 PO; +WARF1TAB56 PO; -WARF3TAB14; +WARF3TAB43; +WARF4TAB54 PO
[2017-11-24 16:12] LABS: INR 1.24
== END ==
LOC: ZZSENDIN 15:52
PROVIDERS: ATTEND Nurse Practitioner Family
DX: I26.90 Septic pulmonary embolism without acute cor pulmonale (principal); E11.9 Type 2 diabetes mellitus without complications; Q05.9 Spina bifida, unspecified
CPT/HCPCS: 85610

== ENCOUNTER → 2017-11-30 | Outpatient (REF) | payer MEDICARE, MEDICAID ==
[2017-08-13 12:51] VITALS: BMI 49.3
[~2017-11-30] MED LIST changes: +AMIT-106 PO; +ASPI81TA94 PO; +CEFA2PLA4; +DULO60CA7; +LIDO700A19; +METR-1 PO; -NAPR-724 PO; +NAPR500T31 PO; +OXYC-966 PO; +OXYC20TA99 PO; +PANT40SU3 PO; +WARF3TAB14; -WARF3TAB43; +[UNRECOGNIZED DRUG - CODE] PO; +[UNRECOGNIZED DRUG - CODE] PO
[2017-11-30 22:56] LABS: INR 1.27
== END ==
LOC: ZZSENDIN 22:38
PROVIDERS: ATTEND Nurse Practitioner Family
DX: I26.90 Septic pulmonary embolism without acute cor pulmonale (principal); E11.9 Type 2 diabetes mellitus without complications; Q05.9 Spina bifida, unspecified
CPT/HCPCS: 85610

== ENCOUNTER 2017-12-02 00:49 | Emergency (ER) | payer MEDICARE, MEDICAID ==
[2017-08-13 12:51] VITALS: Ht 170.2 cm; Wt 120.2 kg
[~2017-12-02] VITALS: Ht 170.2 cm; Wt 120.2 kg
[~2017-12-02 00:49] MED LIST changes: -ACET500T68 PO; -AMIT-106 PO; -ASPI81TA94 PO; -CEFA2PLA4; -DULO30CA35 PO; -DULO60CA7; -LACT296L PO; -LIDO1ADH44 TD; -LIDO1ADH44 TP; -LIDO700A19; -METR-1 PO; -MORP-20 PO; -OSTOMY SUPPLIES; -OXYC-966 PO; -OXYC20TA61 PO; -OXYC20TA99 PO; -PANT40SU3 PO; -[UNRECOGNIZED DRUG - CODE] IV; -[UNRECOGNIZED DRUG - CODE] PO; -[UNRECOGNIZED DRUG - CODE] PO; -[UNRECOGNIZED DRUG - SUPPLY]
--- NOTE | 2017-12-02 00:56 | ER Report ---
History and Physical Time Seen By MD: 00:55 Hx. of Stated Complaint: PATIENT STATES THAT HE WOKE UP TO GET A DRINK OF WATER AND COULD NOT EAR AND EYE SITE IS IN A FOG HPI/ROS CHIEF COMPLAINT: awoke with plugged feeling in ears, haziness in eyes/vision, and thirsty and dry mouth. HISTORY OF PRESENT ILLNESS: This is a 57 year old male. He awoke tonight to get a drink of water. Was very thirsty and has been for several days. [place] like his ears were plugged and had pressure and difficulty hearing, like when your ears will not pop. Had a haziness to his vising, some blurring and difficulty focusing. Has had congestion, runny nose, sore throat and cough. Symptoms for a few days now. Has had some subjective fevers at times and was shaking. Has no chest pain and seems to be breathing normally. He checked his blood sugar which was 127. Called the ambulance to get checked out. Is currently getting IV antibiotic from a central midline catheter. Has been very dry and taking diuretics. Trying to drink fluids, but perhaps decreased since being sick the last few days. No major problems prior to going to bed tonight. He has ongoing workup in place for his infection and for concerns about the catheter and workup for his central shunt. has noticed increase liquid output from colostomy the last 24 hours. Allergies: Coded Allergies: vancomycin (Verified Allergy, Severe, Respiratory arrest due to bronchospasm, 11/23/17) Respiratory arrest due to bronchospasm ciprofloxacin (Verified Allergy, Intermediate, TINGLING, 11/23/17) clindamycin (Verified Allergy, Intermediate, RASH, 11/23/17) perflutren (Verified Adverse Reaction, Severe, Respiratory Arrest, 11/23/17) amoxicillin (Verified Adverse Reaction, Mild, N/V/D, 11/23/17) 07/2017: Pt tolerated Unasyn without difficulty clavulanic acid (Verified Adverse Reaction, Mild, N/V/D, 11/23/17) Uncoded Allergies: contrast definity (Allergy, Severe, MENTAL STATUS CHANGES, 08/15/17) went unresponsive Home Meds Active Scripts Pantoprazole Sodium (PANTOPRAZOLE SODIUM) 40 Mg Tablet., 40 MG PO QDAY, #90 TAB.SR 1 Refill Prov:LENIN ANTONIO APRN [employer] 10/05/17 Citalopram Hydrobromide (CITALOPRAM HBR) 20 Mg Tablet, 1 TAB PO DAILY, #90 TAB 1 Refill Prov:LENIN ANTONIO APRN 09/29/17 Oxygen (OXYGEN) Inha, 3 L INH DAILY, #1 EACH Prov:LENIN ANTONIO APRNP-C 06/28/17 Furosemide (LASIX) 40 Mg Tablet, 1 TAB PO BID, #180 TAB 1 Refill Prov:LENIN ANTONIO APRNP-C 05/31/17 Atorvastatin Calcium (ATORVASTATIN CALCIUM) 40 Mg Tablet, 1 TAB PO QHS, #90 TAB 1 Refill Prov:LENIN ANTONIO APRN- 04/12/17 Metoprolol Succinate (TOPROL XL) 50 Mg Tab.er.24h, 0.5 TAB PO QDAY, #30 TAB 5 Refills Prov:LENIN ANTONIO APRN- 03/20/17 Metformin Hcl (METFORMIN HCL) 1,000 Mg Tablet, 1 TAB PO BID, #180 TAB 4 Refills Prov:MERLE CULVER MD 12/07/16 Magnesium Oxide (MAGNESIUM OXIDE) 400 Mg Tablet, 1 TAB PO TID, #180 TAB 2 Refills Prov:LENIN ANTONIO APRN 11/15/16 Ferrous Sulfate (FERROUS SULFATE) 325 Mg Tablet, 1 TAB PO TID, #60 TAB 2 Refills Prov:LENIN ANTONIO APRN 11/15/16 Reported Medications Trazodone Hcl (TRAZODONE HCL) 50 Mg Tablet, 50 MG PO QHS 12/02/17 Pantoprazole Sodium (PROTONIX) 40 Mg Granpkt.dr, 40 MG PO QDAY, PACK 12/02/17 Oxycodone Hcl (ROXICODONE) 15 Mg Tablet, 20 MG PO 12/02/17 Oxybutynin Chloride (OXYBUTYNIN CHLORIDE) 5 Mg Tablet, 5 MG PO QDAY, TAB 12/02/17 Insulin Detemir (LEVEMIR) 100 Unit/Ml Injs, 100 UNIT SUBQ 12/02/17 Aspirin (ASPIRIN) 81 Mg Tab.chew, 81 MG PO QDAY, TAB.CHEW 12/02/17 Duloxetine HCl (Duloxetine HCl) 60 Mg Capsule.dr, 30 MG 12/02/17 Oxycodone Hcl (OXYCONTIN) 20 Mg Tab.er.12h, 20 MG PO, TAB 12/02/17 Morphine Sulfate (MORPHINE SULFATE) 15 Mg/1 Ml Vial, 15 MG PO, VIAL 12/02/17 Metronidazole (FLAGYL) 500 Mg Tablet, 500 MG PO, TAB 12/02/17 Lidocaine (Lidocaine) 5 % Adh..patch 12/02/17 Cefazolin Sodium in 0.9 % NaCl (Cefazolin 2 G/100 ml-0.9% NaCl) 2 Gram/100 Ml Plast..bag 12/02/17 Cefadroxil Hydrate (CEFADROXIL) 500 Mg Capsule, 500 MG PO, CAPSULE 12/02/17 Amitriptyline Hcl (AMITRIPTYLINE HCL) 25 Mg Tablet, 25 MG PO QHS, #5 TAB 12/02/17 Warfarin Sodium (WARFARIN SODIUM) 4 Mg Tablet, 1-2 MG PO QDAY Hassan 4 MG, M 4 MG, Tu 4 MG, W 4 MG, Th 4 MG, F 4 MG, Sa 8 MG 11/24/17 Gabapentin (GABAPENTIN) 300 Mg Capsule, 1200 MG PO BID, CAPSULE 10/20/17 Insulin Aspart (NOVOLOG FLEXPEN) 100 Unit/1 Ml Insuln.pen, 15-30 UNIT SQ TIDAC 10/20/17 Discontinued Reported Medications Nystatin 100,000 Unit/Gm Top Powder (NYSTATIN 100,000 UNIT/GM TOP POWDER) 15 Gm Powder, 1 JAEL TP TID, TUBE 10/20/17 Duloxetine HCl (Duloxetine HCl) 60 Mg Capsule.dr, 30 MG PO QDAY 10/20/17 Clopidogrel Bisulfate (CLOPIDOGREL) 75 Mg Tablet, 1 TAB PO QDAY, TAB 10/20/17 Discontinued Scripts NYSTATIN 012656 UNT/ML Topical Cream (NYSTATIN 282835 UNT/ML Topical Cream) 15 Gm Cream..g., 1 JAEL TOP BID, #60 GM 5 Refills Prov:LENIN ANTONIO APRN [employer] 10/19/17 Oxycodone Hcl 10 Mg Tab (OXYCODONE HCL 10 MG TAB) 10 Mg Tablet, 1 TAB PO Q6H Y for PAIN, #120 TAB 0 Refills Prov:LENIN ANTONIO APRN [employer] 10/13/17 Potassium Chloride (KLOR-CON M20) 20 Meq Tab.er.prt, 1 TAB PO QDAY, #90 TAB 1 Refill Prov:LENIN ANTONIO APRN [employer] 10/05/17 Reviewed Nurses Notes: Yes Hx Smoking: No Smoking Status: Never Smoker Exposure to Second Hand Smoke?: Yes Hx Substance Use Disorder: No Hx Alcohol Use: No Constitutional Vital Sign - Last 24 Hours 12/02/17 12/02/17 12/02/17 12/02/17 00:49 00:50 00:51 01:00 Temp 99.2 Pulse ??? 127 Resp 18 B/P (MAP) 104/54 (71) 99/63 93/68 (76) Pulse Ox 90 91 O2 Delivery Nasal Cannula 12/02/17 12/02/17 12/02/17 12/02/17 01:19 01:30 01:49 02:00 Pulse ??? 122 B/P (MAP) 96/65 (75) 106/69 (81) Pulse Ox 90 90 12/02/17 12/02/17 12/02/17 12/02/17 02:30 02:49 02:54 03:00 Pulse 120 118 B/P (MAP) 109/71 (84) 102/64 (77) Pulse Ox 88 88 12/02/17 12/02/17 03:30 03:45 Pulse 114 B/P (MAP) 112/69 (83) Pulse Ox 92 Physical Exam General Appearance: The patient is alert. No acute distress. Eyes: Pupils are equal, round. Reactive to light. No pallor, injection or icterus. Extraocular movements are intact. No nystagmus. Normal peripheral vision. Vision is blurred throughout. ENT: Mucous membranes are very dry. Otherwise normal oral mucosa. Posterior oropharynx shows significant post nasal drainage with erythema. Nasal mucosa with significant erythema. Bilateral TM effusions, normal canals, no bulging or redness of the TMs. Neck: Supple and non tender. Respiratory: Breathing easily and unlabored. Lungs are clear to auscultation. Cardiovascular: Mild tachycardia that varies at times. No murmurs, gallops or rubs. Gastrointestinal: Abdomen is soft and non tender. Nondistended. Normal active bowel sounds. Neurological: Alert and oriented x3. Normal cranial nerves, eye exam as noted. No facial droop, tongue deviation, palate changes, or sensory problems other than the blurred vision. No peripheral neurological changes. Skin: Warm and dry. No rashes. DIFFERENTIAL DIAGNOSIS: After history and physical exam, differential diagnosis was considered for symptoms of upper respiratory infection with ear effusions. Will check influenza. He looks like he is dehydrated and could use some fluids. Will check CBC and CMP. Medical Decision Making Data Points Result Diagram: 12/02/17 0132 12/02/17 0132 Laboratory Hematology Test 12/02/17 01:03 12/02/17 01:32 Influenza Virus Type A (PCR) Negative (NEGATIVE) Influenza Virus Type B (PCR) Negative (NEGATIVE) Red Blood Count 4.80 M/uL (4.00-5.60) Mean Corpuscular Volume 75.3 fL (80.0-96.0) Mean Corpuscular Hemoglobin 23.8 pg (26.0-33.0) Mean Corpuscular Hemoglobin Concent 31.7 g/dL (32.0-36.0) Red Cell Distribution Width 18.0 % (11.5-14.5) Mean Platelet Volume 7.0 fL (7.2-11.1) Neutrophils (%) (Auto) 85.7 % (39.4-72.5) Lymphocytes (%) (Auto) 6.6 % (17.6-49.6) Monocytes (%) (Auto) 5.6 % (4.1-12.4) Eosinophils (%) (Auto) 1.6 % (0.4-6.7) Basophils (%) (Auto) 0.5 % (0.3-1.4) Nucleated RBC Relative Count (auto) 0.0 /100WBC Neutrophils # (Auto) 10.7 K/uL (2.0-7.4) Lymphocytes # (Auto) 0.8 K/uL (1.3-3.6) Monocytes # (Auto) 0.7 K/uL (0.3-1.0) Eosinophils # (Auto) 0.2 K/uL (0.0-0.5) Basophils # (Auto) 0.1 K/uL (0.0-0.1) Nucleated RBC Absolute Count (auto) 0.00 K/uL Peripheral Blood Smear No Y/N Sodium Level 130 mmol/L (137-145) Potassium Level 3.8 mmol/L (3.5-5.0) Chloride Level 89 mmol/L (98-107) Carbon Dioxide Level 29 mmol/L (22-30) Blood Urea Nitrogen 22 mg/dl (9-21) Creatinine 1.10 mg/dl (0.66-1.25) Glomerular Filtration Rate Calc > 60.0 Random Glucose 144 mg/dl (75-110) Calcium Level 8.8 mg/dl (8.4-10.2) Total Bilirubin 0.2 mg/dl (0.2-1.3) Aspartate Amino Transf (AST/SGOT) 14 U/L (0-35) Alanine Aminotransferase (ALT/SGPT) 24 U/L (0-56) Alkaline Phosphatase 131 U/L (0-126) Total Protein 7.2 gm/dl (6.3-8.2) Albumin 3.4 g/dl (3.5-5.0) Chemistry Test 12/02/17 01:03 12/02/17 01:32 Influenza Virus Type A (PCR) Negative (NEGATIVE) Influenza Virus Type B (PCR) Negative (NEGATIVE) White Blood Count 12.5 k/uL (4.5-11.0) Red Blood Count 4.80 M/uL (4.00-5.60) Hemoglobin 11.4 g/dL (14.0-18.0) Hematocrit 36.1 % (42.0-52.0) Mean Corpuscular Volume 75.3 fL (80.0-96.0) Mean Corpuscular Hemoglobin 23.8 pg (26.0-33.0) Mean Corpuscular Hemoglobin Concent 31.7 g/dL (32.0-36.0) Red Cell Distribution Width 18.0 % (11.5-14.5) Platelet Count 350 K/uL (150-450) Mean Platelet Volume 7.0 fL (7.2-11.1) Neutrophils (%) (Auto) 85.7 % (39.4-72.5) Lymphocytes (%) (Auto) 6.6 % (17.6-49.6) Monocytes (%) (Auto) 5.6 % (4.1-12.4) Eosinophils (%) (Auto) 1.6 % (0.4-6.7) Basophils (%) (Auto) 0.5 % (0.3-1.4) Nucleated RBC Relative Count (auto) 0.0 /100WBC Neutrophils # (Auto) 10.7 K/uL (2.0-7.4) Lymphocytes # (Auto) 0.8 K/uL (1.3-3.6) Monocytes # (Auto) 0.7 K/uL (0.3-1.0) Eosinophils # (Auto) 0.2 K/uL (0.0-0.5) Basophils # (Auto) 0.1 K/uL (0.0-0.1) Nucleated RBC Absolute Count (auto) 0.00 K/uL Peripheral Blood Smear No Y/N Glomerular Filtration Rate Calc > 60.0 Calcium Level 8.8 mg/dl (8.4-10.2) Total Bilirubin 0.2 mg/dl (0.2-1.3) Aspartate Amino Transf (AST/SGOT) 14 U/L (0-35) Alanine Aminotransferase (ALT/SGPT) 24 U/L (0-56) Alkaline Phosphatase 131 U/L (0-126) Total Protein 7.2 gm/dl (6.3-8.2) Albumin 3.4 g/dl (3.5-5.0) ED Course/Re-evaluation Clinical Indication for ER IV: Hydration, IV Access ED Course Influenza negative. He has some other viral upper respiratory infection/viral syndrome. Changes in labs showing some dehydration. Having improvement with Tylenol and with a liter of normal saline. Had some nausea and took Zofran 4mg IV. Was able to drink some ice water and eat some cheese and crackers. Decision to Disposition Date: Dec 02, 2017 Decision to Disposition Time: 03:47 Depart Departure Latest Vital Signs Vital Signs Date Time Temp Pulse Resp B/P (MAP) Pulse Ox O2 Delivery O2 Flow Rate FiO2 12/02/17 03:45 114 92 12/02/17 03:30 112/69 (83) 12/02/17 00:51 99.2 18 Nasal Cannula Impression: Primary Impression: Viral syndrome Condition: Improved Disposition: HOME OR SELF-CARE Referrals: LENIN ANTONIO APRNP-C (PCP) Patient Instructions: Viral Syndrome (ED) Additional Instructions: Increase fluid intake. You were a little dehydrated tonight. Increased rest over the next few days. You have a virus that is going to cause some fevers/chills, aches, and upper respiratory symptoms. These usually take 7-10 days to begin resolving. Take Tylenol 500mg, 1-2 tablets every 6 hours. Follow-up with your primary care provider. AMANDO KARIMI MD Dec 02, 2017 00:56
[2017-12-02] MEDS ORDERED: NS(*) 0.9% 1000 ML BAG 1,000 ML IV ONE (01:20)
[2017-12-02 01:44] LABS: PLATELET COUNT, AUTOMATED 350 K/uL (150-450)
[2017-12-02] MEDS ORDERED: DULO60CA7 (01:51)
[2017-12-02] MEDS ORDERED: LEVI SUBQ (01:51)
[2017-12-02] MEDS ORDERED: OXYC-966 PO (01:51)
[2017-12-02] MEDS ORDERED: ASPI81TA94 PO (01:51)
[2017-12-02] MEDS ORDERED: [UNRECOGNIZED DRUG - CODE] PO (01:51)
[2017-12-02] MEDS ORDERED: TRAZ-156 PO (01:51)
[2017-12-02] MEDS ORDERED: AMIT-106 PO (01:51)
[2017-12-02] MEDS ORDERED: PANT40SU3 PO (01:51)
[2017-12-02] MEDS ORDERED: METR-1 PO (01:51)
[2017-12-02] MEDS ORDERED: CEFA2PLA4 (01:51)
[2017-12-02] MEDS ORDERED: [UNRECOGNIZED DRUG - CODE] PO (01:51)
[2017-12-02] MEDS ORDERED: OXYB5TAB86 PO (01:51)
[2017-12-02] MEDS ORDERED: LIDO700A19 (01:51)
[2017-12-02] MEDS ORDERED: OXYC20TA99 PO (01:51)
[2017-12-02] MEDS ORDERED: ONDANSETRON 4 MG/2 ML VIAL IVP ONE (02:25)
[2017-12-02] MEDS ORDERED: ACETAMINOPHEN 500 MG TAB PO ONE (03:15)
[2017-12-02 04:00] VITALS: BP 110/74
[2017-12-05] MEDS ORDERED: OXYC20TA61 PO (16:35)
[2017-12-05] MEDS ORDERED: MORP-20 PO (16:35)
[2017-12-05] MEDS ORDERED: TRAZ-156 PO (16:40)
== END 2017-12-02 04:27 | disposition home or self-care (01) ==
LOC: ER 00:53
DX: B34.9 Viral infection, unspecified (principal)
CPT/HCPCS: 36415; 85025; 87502; 99284; A9270; J2405; J7030; 82040; 82247; 82310; 82374; 82435; 82565; 82947; 84075; 84132; 84155; 84295; 84450; 84460; 84520

== ENCOUNTER → 2017-12-02 | Outpatient (CLI) | payer MEDICARE, MEDICAID ==
[2017-08-13 12:51] VITALS: BMI 49.3
[~2017-12-02] MED LIST changes: +ACET500T68 PO; +CEFE2VIA13 IVP; +DULO30CA35 PO; +FURO-47 PO; +INSU100I30 SUBQ; +INSU100I35 SUBQ; +LACT296L PO; +LIDO1ADH44 TD; +LIDO1ADH44 TP; +MORP-20 PO; +OSTOMY SUPPLIES; +OXYC20TA61 PO; +WARF-1 PO; +[UNRECOGNIZED DRUG - CODE] IV; +[UNRECOGNIZED DRUG - SUPPLY]
== END ==
LOC: AMB 04:27
PROVIDERS: ATTEND Nurse Practitioner
DX: J06.9 Acute upper respiratory infection, unspecified (principal)
CPT/HCPCS: A0425; A0428

== ENCOUNTER → 2017-12-02 | Outpatient (CLI) | payer MEDICARE, MEDICAID ==
[2017-08-13 12:51] VITALS: BMI 49.3
[~2017-12-02] MED LIST changes: -CEFE2VIA13 IVP; -FURO-47 PO; -INSU100I30 SUBQ; -INSU100I35 SUBQ; -WARF-1 PO
== END ==
LOC: AMB 00:33
PROVIDERS: ATTEND Nurse Practitioner
DX: H91.93 Unspecified hearing loss, bilateral (principal); H53.9 Unspecified visual disturbance
CPT/HCPCS: A0425; A0429

== ENCOUNTER → 2017-12-05 | Outpatient (CLI) | payer MEDICARE, MEDICAID ==
[2017-08-13 12:51] VITALS: BMI 49.3
[~2017-12-05] MED LIST changes: +AMIT-106 PO; +ASPI81TA94 PO; +CEFA2PLA4; +DULO60CA7; +LIDO700A19; +METR-1 PO; +MORP-20 PO; +OXYC-966 PO; +OXYC20TA61 PO; +OXYC20TA99 PO; +PANT40SU3 PO; +[UNRECOGNIZED DRUG - CODE] PO; +[UNRECOGNIZED DRUG - CODE] PO
--- NOTE | 2017-12-05 15:09 | RADIOLOGY IMAGING REPORT ---
FACILITY: [facility] PATIENT NAME: Rodrigue Phillips : 1960 MR: [id number] V: [id number] EXAM DATE: ORDERING PHYSICIAN: ARSH CUTLER TECHNOLOGIST: Location: [facility] - [place] Patient: Rodrigue Phillips : 1960 Visit/Account:[id number] Date of Sevice: 12/05/2017 EXAMINATION: Head CT without intravenous contrast HISTORY: Hydrocephalus TECHNIQUE: Contiguous axial images were obtained from the skull base to the vertex without intraven ous contrast. Sagittal and coronal reformatted images are also submitted. Dose Lowering Technique One of the following dose optimization techniques was utilized in the performance of this exam: Autom ated exposure control; adjustment of the mA and/or kV according to the patient's size; or use of an i terative reconstruction technique. Specific details can be referenced in the facility's radiology C T exam operational policy. COMPARISON: July 23, 2017 FINDINGS: Brain volume: Mild diffuse cortical atrophy Ventricles: Lateral ventriculomegaly appears relatively unchanged although direct comparison is some what limited due to the extensive motion artifact on the prior study the right-sided ventricular shun t appears unchanged in position Acute ischemic changes: None. Hemorrhage: None. Masses / edema: None. Prater-white: Negative. White matter: Normal. Vessels: Negative. Extra-axial: Negative. Calvarium / scalp: Negative. Skull base / visualized face: Negative. Visualized sinuses / orbits: Negative. IMPRESSION: Hydrocephalus appears unchanged. The right ventricular shunt also unchanged in position Report Dictated By: Milena Olea MD at 12/05/2017 2:56 PM Report E-Signed By: Milena Olea MD at 12/05/2017 3:03 PM WSN:[email or web address]
== END ==
LOC: CT 02:20
PROVIDERS: ATTEND Neurological Surgery
DX: G91.9 Hydrocephalus, unspecified (principal); Z98.2 Presence of cerebrospinal fluid drainage device
CPT/HCPCS: 70450

== ENCOUNTER → 2017-12-14 | Outpatient (REF) | payer MEDICARE, MEDICAID ==
[2017-08-13 12:51] VITALS: BMI 49.3
[~2017-12-14] MED LIST changes: +LIDO1ADH44 TP
== END ==
LOC: ZZSENDIN 19:06
PROVIDERS: ATTEND Nurse Practitioner Family
DX: R78.81 Bacteremia (principal)
CPT/HCPCS: 85027; 86140

== ENCOUNTER → 2017-12-19 | Outpatient (CLI) | payer MEDICARE, MEDICAID ==
[2017-08-13 12:51] VITALS: BMI 49.3
[~2017-12-19] MED LIST changes: +ACET500T68 PO; +DULO30CA35 PO; +LACT296L PO; +LIDO1ADH44 TD; +OSTOMY SUPPLIES; +[UNRECOGNIZED DRUG - CODE] IV; +[UNRECOGNIZED DRUG - SUPPLY]
[2017-12-19 16:29] LABS: PLATELET COUNT, AUTOMATED 291 K/uL (150-450)
[2017-12-19 16:43] LABS: INR 4.02
== END ==
LOC: LAB 15:57
PROVIDERS: ATTEND Nurse Practitioner Family
DX: Z51.81 Encounter for therapeutic drug level monitoring (principal); Z79.01 Long term (current) use of anticoagulants; R19.7 Diarrhea, unspecified; R68.83 Chills (without fever); R79.82 Elevated C-reactive protein (CRP); B96.89 Other specified bacterial agents as the cause of diseases classified elsewhere
CPT/HCPCS: 36415; 85025; 85610; 86140; 87040; 87077; 87186; 87324; 87449

== ENCOUNTER 2017-12-21 16:12 | Inpatient (IN) | payer MEDICARE, MEDICAID ==
[~2017-12-21] VITALS: Ht 170.2 cm; Wt 135.7 kg
[~2017-12-21 16:12] MED LIST changes: -ACET500T68 PO; -DULO30CA35 PO; -LACT296L PO; -LIDO1ADH44 TD
--- NOTE | 2017-12-21 16:32 | ER Report ---
History and Physical Time Seen By MD: 16:38 Allergies: Coded Allergies: vancomycin (Verified Allergy, Severe, Respiratory arrest due to bronchospasm, 12/21/17) Respiratory arrest due to bronchospasm ciprofloxacin (Verified Allergy, Intermediate, TINGLING, 12/21/17) clindamycin (Verified Allergy, Intermediate, RASH, 12/21/17) perflutren (Verified Adverse Reaction, Severe, Respiratory Arrest, 12/21/17) amoxicillin (Verified Adverse Reaction, Mild, N/V/D, 12/21/17) 07/2017: Pt tolerated Unasyn without difficulty clavulanic acid (Verified Adverse Reaction, Mild, N/V/D, 12/21/17) Uncoded Allergies: contrast definity (Allergy, Severe, MENTAL STATUS CHANGES, 08/15/17) went unresponsive Home Meds Active Scripts [Ostomy Supplies] No Conflict Check Prov:LENIN ANTONIO APRN-C 12/21/17 [Mepilex Border Lite] No Conflict Check Prov:LENIN ANTONIO APRN-C 12/20/17 NYSTATIN 861955 UNT/ML Topical Cream (NYSTATIN 479855 UNT/ML Topical Cream) 15 Gm Cream..g., 1 JAEL TP BID, #120 GM 2 Refills Apply to yeast infection twice daily until resolved then treat the area once daily M, W, F Prov:LENIN ANTONIO APRN-C 12/19/17 Cefadroxil Hydrate (CEFADROXIL) 500 Mg Capsule, 1 CAP PO BID, #180 CAPSULE 3 Refills Prov:LENIN ANTONIO APRN-C 12/13/17 Metformin Hcl (METFORMIN HCL) 1,000 Mg Tablet, 1 TAB PO BID, #180 TAB 3 Refills Prov:LENIN ANTONIO APRN-C 12/12/17 Trazodone Hcl (TRAZODONE HCL) 50 Mg Tablet, 50 MG PO QHS, #90 TAB 1 Refill Prov:LENIN ANTONIO APRN-C 12/05/17 Pantoprazole Sodium (PANTOPRAZOLE SODIUM) 40 Mg Tablet.dr, 40 MG PO QDAY, #90 TAB.SR 1 Refill Prov:LENIN ANTONIO APRN-C 10/05/17 Citalopram Hydrobromide (CITALOPRAM HBR) 20 Mg Tablet, 1 TAB PO DAILY, #90 TAB 1 Refill Prov[facility] 09/29/17 Oxygen (OXYGEN) Inha, 3 L INH DAILY, #1 EACH Prov:LENIN ANTONIO APRN [facility] 06/28/17 Furosemide (LASIX) 40 Mg Tablet, 1 TAB PO BID, #180 TAB 1 Refill Prov:LENIN ANTONIO APRN [facility] 05/31/17 Atorvastatin Calcium (ATORVASTATIN CALCIUM) 40 Mg Tablet, 1 TAB PO QHS, #90 TAB 1 Refill Prov:LENIN ANTONIO APRN [facility] 04/12/17 Metoprolol Succinate (TOPROL XL) 50 Mg Tab.er.24h, 0.5 TAB PO QDAY, #30 TAB 5 Refills Prov:LENIN ANTONIO APRN [facility] 03/20/17 Magnesium Oxide (MAGNESIUM OXIDE) 400 Mg Tablet, 1 TAB PO TID, #180 TAB 2 Refills Prov:LENIN ANTONIO APRN [facility] 11/15/16 Ferrous Sulfate (FERROUS SULFATE) 325 Mg Tablet, 1 TAB PO TID, #60 TAB 2 Refills Prov:LENIN ANTONIO APRN [facility] 11/15/16 Reported Medications Metronidazole (METRONIDAZOLE) 500 Mg Tablet, 1 TAB PO DAILY, #30 0 Refills 12/21/17 Cefazolin Sodium (CEFAZOLIN SODIUM) 10 Gm Vial, 1 VIAL IV Q8H, #42 VIAL 0 Refills 12/21/17 Lidocaine (Aspercreme) 4 % Adh..patch, 1 PATCH TP DAILY 12/07/17 Morphine Sulfate 15 Mg Er Tab (MORPHINE SULFATE 15 MG ER TAB) 15 Mg Tablet.er, 1 TAB PO Q12H 12/05/17 Oxycodone Hcl 20 Mg Tab (OXYCODONE HCL 20 MG TAB) 20 Mg Tablet, 1 TAB PO QID Y for PAIN 12/05/17 Pantoprazole Sodium (PROTONIX) 40 Mg Granpkt.dr, 40 MG PO QDAY, PACK 12/02/17 Insulin Detemir (LEVEMIR) 100 Unit/Ml Injs, 100 UNIT SUBQ 12/02/17 Aspirin (ASPIRIN) 81 Mg Tab.chew, 81 MG PO QDAY, TAB.CHEW 12/02/17 Duloxetine HCl (Duloxetine HCl) 60 Mg Capsule.dr, 30 MG 12/02/17 Amitriptyline Hcl (AMITRIPTYLINE HCL) 25 Mg Tablet, 25 MG PO QHS, #5 TAB 12/02/17 Warfarin Sodium (WARFARIN SODIUM) 4 Mg Tablet, 1-2 MG PO QDAY Hassan 4 MG, M 4 MG, Tu 4 MG, W 4 MG, Th 4 MG, F 4 MG, Sa 8 MG 11/24/17 Gabapentin (GABAPENTIN) 300 Mg Capsule, 1200 MG PO BID, CAPSULE 10/20/17 Insulin Aspart (NOVOLOG FLEXPEN) 100 Unit/1 Ml Insuln.pen, 15-30 UNIT SQ TIDAC 10/20/17 Discontinued Reported Medications Metronidazole (FLAGYL) 500 Mg Tablet, 500 MG PO, TAB 12/02/17 Hx Smoking: No Smoking Status: Never Smoker Exposure to Second Hand Smoke?: Yes Hx Substance Use Disorder: No Hx Alcohol Use: No Constitutional Vital Sign - Last 24 Hours 12/21/17 16:40 Temp 98.5 Pulse 103 Resp 14 B/P (MAP) 122/61 Pulse Ox 91 O2 Delivery Nasal Cannula Medical Decision Making Data Points Laboratory Hematology Test 12/21/17 16:35 Urine Color Yellow Urine Clarity Cloudy Urine pH 5.0 pH (4.8-9.5) Urine Specific [place] 1.012 Urine Protein Negative mg/dL (NEGATIVE) Urine Glucose (UA) 500 mg/dL (NEGATIVE) Urine Ketones Negative mg/dL (NEGATIVE) Urine Blood Moderate (NEGATIVE) Urine Nitrite Positive (NEGATIVE) Urine Bilirubin Negative (NEGATIVE) Urine Urobilinogen Negative mg/dL (0.2-1.9) Urine Leukocyte Esterase Large (NEGATIVE) Urine RBC 18 /HPF (0-2/HPF) Urine WBC 245 /HPF (0-5/HPF) Urine WBC Clumps Mod /HPF Urine Squamous Epithelial Cells None /LPF (NONE-FEW) Urine Bacteria Few /HPF (NONE-FEW) Urine Mucus None /HPF (NONE-FEW) Urine Yeast (Budding) Few /HPF Chemistry Test 12/21/17 16:35 Urine Color Yellow Urine Clarity Cloudy Urine pH 5.0 pH (4.8-9.5) Urine Specific [place] 1.012 Urine Protein Negative mg/dL (NEGATIVE) Urine Glucose (UA) 500 mg/dL (NEGATIVE) Urine Ketones Negative mg/dL (NEGATIVE) Urine Blood Moderate (NEGATIVE) Urine Nitrite Positive (NEGATIVE) Urine Bilirubin Negative (NEGATIVE) Urine Urobilinogen Negative mg/dL (0.2-1.9) Urine Leukocyte Esterase Large (NEGATIVE) Urine RBC 18 /HPF (0-2/HPF) Urine WBC 245 /HPF (0-5/HPF) Urine WBC Clumps Mod /HPF Urine Squamous Epithelial Cells None /LPF (NONE-FEW) Urine Bacteria Few /HPF (NONE-FEW) Urine Mucus None /HPF (NONE-FEW) Urine Yeast (Budding) Few /HPF Urinalysis Test 12/21/17 16:35 Urine Color Yellow Urine Clarity Cloudy Urine pH 5.0 pH (4.8-9.5) Urine Specific Webster 1.012 Urine Protein Negative mg/dL (NEGATIVE) Urine Glucose (UA) 500 mg/dL (NEGATIVE) Urine Ketones Negative mg/dL (NEGATIVE) Urine Blood Moderate (NEGATIVE) Urine Nitrite Positive (NEGATIVE) Urine Bilirubin Negative (NEGATIVE) Urine Urobilinogen Negative mg/dL (0.2-1.9) Urine Leukocyte Esterase Large (NEGATIVE) Urine RBC 18 /HPF (0-2/HPF) Urine WBC 245 /HPF (0-5/HPF) Urine WBC Clumps Mod /HPF Urine Squamous Epithelial Cells None /LPF (NONE-FEW) Urine Bacteria Few /HPF (NONE-FEW) Urine Mucus None /HPF (NONE-FEW) Urine Yeast (Budding) Few /HPF Depart Departure Latest Vital Signs Vital Signs Date Time Temp Pulse Resp B/P (MAP) Pulse Ox O2 Delivery O2 Flow Rate FiO2 12/21/17 16:40 98.5 103 14 122/61 91 Nasal Cannula Referrals: LENIN ANTONIO APRN [employer]-[facility] (PCP) AMANDO KARIMI MD Dec 21, 2017 16:32
--- NOTE | 2017-12-21 17:01 | RADIOLOGY IMAGING REPORT ---
FACILITY: [facility] PATIENT NAME: Rodrigue Phillips : 1960 MR: [id number] V: [id number] EXAM DATE: ORDERING PHYSICIAN: AMANDO KARIMI TECHNOLOGIST: Location: [facility] - [place] Patient: Rodrigue Phillips : 1960 Visit/Account:[id number] Date of Sevice: 12/21/2017 Exam type: CHEST SINGLE AP History: fever, possitive blood culture Comparison: November 23, 2017. Findings: The lungs are free of acute effusions, infiltrates or edema. Cardiac silhouette is unremarkable.. T he right-sided catheter the distal tip projects over the superior vena cava. IMPRESSION: 1. No acute cardiopulmonary process is seen Report Dictated By: Milena Olea MD at 12/21/2017 4:54 PM Report E-Signed By: Milena Olea MD at 12/21/2017 4:56 PM WSN:[email or web address]
[2017-12-21 18:08] LABS: PLATELET COUNT, AUTOMATED 299 K/uL (150-450)
[2017-12-21 18:15] LABS: INR 8.45
[2017-12-21] MEDS ORDERED: NS(*) 0.9% 1000 ML BAG 1,000 ML IV ONE (18:35)
[2017-12-21] MEDS ORDERED: ceFAZolin(*) 2GM/D5W 50ML 50 ML IVPB ONE (19:40)
--- NOTE | 2017-12-21 19:50 | ER Report ---
History and Physical Time Seen By MD: 16:15 Hx. of Stated Complaint: "comtaminated blood" HPI/ROS CHIEF COMPLAINT: Fevers, positive blood culture HISTORY OF PRESENT ILLNESS: Patient is a 57-year-old male who presents the ED with complaint of fever, abdominal pain, positive blood cultures. He states that he did see his primary care provider 2 days ago and was having some fevers at that time. 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 These have been unable to be removed. He also has a history of septic emboli just 1-2 months ago and has recently been on IV antibiotics including IV Ancef which she was supposed to be taking 3 times a day. He states that he discontinued the IV Ancef little over a week ago and states that he never did take it as prescribed. He states that sometimes he only take it once a day. He was then supposed to be on oral Duricef but he never filled this prescription. He states that now he has been having worsening fevers and abdominal pain and was told to come in to the ER today by his primary care provider who did call the ER stating that his blood cultures positive for gram-positive cocci. REVIEW OF SYSTEMS: Constitutional: No fever, no chills. Eyes: No discharge. ENT: No sore throat. Cardiovascular: No chest pain, no palpitations. Respiratory: No cough, no shortness of breath. Gastrointestinal: See history of present illness. Mild nausea and vomiting. No diarrhea Genitourinary: No hematuria. Musculoskeletal: No back pain. Skin: No rashes. Neurological: No headache. Allergies: Coded Allergies: vancomycin (Verified Allergy, Severe, Respiratory arrest due to bronchospasm, 12/21/17) Respiratory arrest due to bronchospasm ciprofloxacin (Verified Allergy, Intermediate, TINGLING, 12/21/17) clindamycin (Verified Allergy, Intermediate, RASH, 12/21/17) perflutren (Verified Adverse Reaction, Severe, Respiratory Arrest, 12/21/17) amoxicillin (Verified Adverse Reaction, Mild, N/V/D, 12/21/17) 07/2017: Pt tolerated Unasyn without difficulty clavulanic acid (Verified Adverse Reaction, Mild, N/V/D, 12/21/17) Uncoded Allergies: contrast definity (Allergy, Severe, MENTAL STATUS CHANGES, 08/15/17) went unresponsive Home Meds Active Scripts [Ostomy Supplies] No Conflict Check Prov:LENIN ANTONIO APRNP-C 12/21/17 [Mepilex Border Lite] No Conflict Check Prov:LENIN ANTONIO APRNP-C 12/20/17 NYSTATIN 622729 UNT/ML Topical Cream (NYSTATIN 140875 UNT/ML Topical Cream) 15 Gm Cream..g., 1 JAEL TP BID, #120 GM 2 Refills Apply to yeast infection twice daily until resolved then treat the area once daily M, W, F Prov:LENIN ANTONIO APRNP-C 12/19/17 Cefadroxil Hydrate (CEFADROXIL) 500 Mg Capsule, 1 CAP PO BID, #180 CAPSULE 3 Refills Prov:LENIN ANTONIO APRNP-C 12/13/17 Metformin Hcl (METFORMIN HCL) 1,000 Mg Tablet, 1 TAB PO BID, #180 TAB 3 Refills Prov:LENIN ANTONIO APRNP-C 12/12/17 Trazodone Hcl (TRAZODONE HCL) 50 Mg Tablet, 50 MG PO QHS, #90 TAB 1 Refill Prov:LENIN ANTONIO APRN-C 12/05/17 Pantoprazole Sodium (PANTOPRAZOLE SODIUM) 40 Mg Tablet.dr, 40 MG PO QDAY, #90 TAB.SR 1 Refill Prov:LENIN ANTONIO APRN-C 10/05/17 Citalopram Hydrobromide (CITALOPRAM HBR) 20 Mg Tablet, 1 TAB PO DAILY, #90 TAB 1 Refill Prov:LENIN ANTONIO APRNP-C 09/29/17 Oxygen (OXYGEN) Inha, 3 L INH DAILY, #1 EACH Prov:LENNI ANTONIO APRNP-C 06/28/17 Furosemide (LASIX) 40 Mg Tablet, 1 TAB PO BID, #180 TAB 1 Refill Prov:LENIN ANTONIO APRNP-C 05/31/17 Atorvastatin Calcium (ATORVASTATIN CALCIUM) 40 Mg Tablet, 1 TAB PO QHS, #90 TAB 1 Refill Prov:LENIN ANTONIO APRNP-C 04/12/17 Metoprolol Succinate (TOPROL XL) 50 Mg Tab.er.24h, 0.5 TAB PO QDAY, #30 TAB 5 Refills Prov:LENIN ANTONIO ANGELLA PATTERSONP-C 03/20/17 Magnesium Oxide (MAGNESIUM OXIDE) 400 Mg Tablet, 1 TAB PO TID, #180 TAB 2 Refills Prov:LENIN ANTONIO ANGELLA PATTEROSNP-C 11/15/16 Ferrous Sulfate (FERROUS SULFATE) 325 Mg Tablet, 1 TAB PO TID, #60 TAB 2 Refills Prov:LENIN ANTONIO ANGELLA PATTERSONP-C 11/15/16 Reported Medications Metronidazole (METRONIDAZOLE) 500 Mg Tablet, 1 TAB PO DAILY, #30 0 Refills 12/21/17 Cefazolin Sodium (CEFAZOLIN SODIUM) 10 Gm Vial, 1 VIAL IV Q8H, #42 VIAL 0 Refills 12/21/17 Lidocaine (Aspercreme) 4 % Adh..patch, 1 PATCH TP DAILY 12/07/17 Morphine Sulfate 15 Mg Er Tab (MORPHINE SULFATE 15 MG ER TAB) 15 Mg Tablet.er, 1 TAB PO Q12H 12/05/17 Oxycodone Hcl 20 Mg Tab (OXYCODONE HCL 20 MG TAB) 20 Mg Tablet, 1 TAB PO QID Y for PAIN 12/05/17 Pantoprazole Sodium (PROTONIX) 40 Mg Granpkt.dr, 40 MG PO QDAY, PACK 12/02/17 Insulin Detemir (LEVEMIR) 100 Unit/Ml Injs, 100 UNIT SUBQ 12/02/17 Aspirin (ASPIRIN) 81 Mg Tab.chew, 81 MG PO QDAY, TAB.CHEW 12/02/17 Duloxetine HCl (Duloxetine HCl) 60 Mg Capsule.dr, 30 MG 12/02/17 Amitriptyline Hcl (AMITRIPTYLINE HCL) 25 Mg Tablet, 25 MG PO QHS, #5 TAB 12/02/17 Warfarin Sodium (WARFARIN SODIUM) 4 Mg Tablet, 1-2 MG PO QDAY Hassan 4 MG, M 4 MG, Tu 4 MG, W 4 MG, Th 4 MG, F 4 MG, Sa 8 MG 11/24/17 Gabapentin (GABAPENTIN) 300 Mg Capsule, 1200 MG PO BID, CAPSULE 10/20/17 Insulin Aspart (NOVOLOG FLEXPEN) 100 Unit/1 Ml Insuln.pen, 15-30 UNIT SQ TIDAC 10/20/17 Discontinued Reported Medications Metronidazole (FLAGYL) 500 Mg Tablet, 500 MG PO, TAB 12/02/17 Reviewed Nurses Notes: Yes Old Medical Records Reviewed: Yes Hx Smoking: No Smoking Status: Never Smoker Exposure to Second Hand Smoke?: Yes Hx Substance Use Disorder: No Hx Alcohol Use: No Constitutional Vital Sign - Last 24 Hours 12/21/17 12/21/17 12/21/17 12/21/17 16:38 16:40 16:42 16:57 Temp 98.5 Pulse 103 98 100 Resp 14 B/P (MAP) 122/61 (81) 122/61 Pulse Ox 91 90 91 O2 Delivery Nasal Cannula 12/21/17 12/21/17 12/21/17 12/21/17 17:00 17:12 17:27 17:42 Pulse 106 99 99 B/P (MAP) 105/63 (77) Pulse Ox 93 90 92 12/21/17 12/21/17 12/21/17 12/21/17 17:57 18:02 18:17 18:32 Pulse 97 95 94 94 Pulse Ox 93 91 96 97 12/21/17 12/21/17 18:47 19:02 Pulse 93 94 Pulse Ox 98 97 Physical Exam General Appearance: The patient is alert, has no immediate need for airway protection and no signs of toxicity. Patient appears to be in no acute distress. Eyes: Pupils equal and round no pallor or injection. ENT, Mouth: Mucous membranes are moist. Respiratory: There are no retractions, lungs are clear to auscultation. Cardiovascular: Regular rate and rhythm. Gastrointestinal: Abdomen is soft and non tender, no masses, bowel sounds normal. Skin: Warm and dry, no rashes. Musculoskeletal: Neck is supple non tender. Extremities are nontender, nonswollen and have full range of motion. DIFFERENTIAL DIAGNOSIS: After history and physical exam differential diagnosis was considered for abdominal pain including but not limited to appendicitis, cholecystitis, gastritis and urinary tract infection. Medical Decision Making Data Points Result Diagram: 12/21/17 4485 12/21/17 0443 Laboratory Hematology Test 12/21/17 00:00 12/21/17 16:35 12/21/17 17:55 C-Reactive Protein 6.2 mg/dl (<1.0) Urine Color Yellow Urine Clarity Cloudy Urine pH 5.0 pH (4.8-9.5) Urine Specific Ava 1.012 Urine Protein Negative mg/dL (NEGATIVE) Urine Glucose (UA) 500 mg/dL (NEGATIVE) Urine Ketones Negative mg/dL (NEGATIVE) Urine Blood Moderate (NEGATIVE) Urine Nitrite Positive (NEGATIVE) Urine Bilirubin Negative (NEGATIVE) Urine Urobilinogen Negative mg/dL (0.2-1.9) Urine Leukocyte Esterase Large (NEGATIVE) Urine RBC 18 /HPF (0-2/HPF) Urine WBC 245 /HPF (0-5/HPF) Urine WBC Clumps Mod /HPF Urine Squamous Epithelial Cells None /LPF (NONE-FEW) Urine Bacteria Few /HPF (NONE-FEW) Urine Mucus None /HPF (NONE-FEW) Urine Yeast (Budding) Few /HPF Red Blood Count 5.24 M/uL (4.00-5.60) Mean Corpuscular Volume 73.3 fL (80.0-96.0) Mean Corpuscular Hemoglobin 23.2 pg (26.0-33.0) Mean Corpuscular Hemoglobin Concent 31.7 g/dL (32.0-36.0) Red Cell Distribution Width 18.2 % (11.5-14.5) Mean Platelet Volume 7.2 fL (7.2-11.1) Neutrophils (%) (Auto) 67.9 % (39.4-72.5) Lymphocytes (%) (Auto) 16.0 % (17.6-49.6) Monocytes (%) (Auto) 10.4 % (4.1-12.4) Eosinophils (%) (Auto) 5.2 % (0.4-6.7) Basophils (%) (Auto) 0.5 % (0.3-1.4) Nucleated RBC Relative Count (auto) 0.0 /100WBC Neutrophils # (Auto) 4.8 K/uL (2.0-7.4) Lymphocytes # (Auto) 1.1 K/uL (1.3-3.6) Monocytes # (Auto) 0.7 K/uL (0.3-1.0) Eosinophils # (Auto) 0.4 K/uL (0.0-0.5) Basophils # (Auto) 0.0 K/uL (0.0-0.1) Nucleated RBC Absolute Count (auto) 0.00 K/uL Prothrombin Time 74.8 seconds (12.0-14.4) Prothromb Time International Ratio 8.45 Sodium Level 130 mmol/L (137-145) Potassium Level 4.6 mmol/L (3.5-5.0) Chloride Level 90 mmol/L (98-107) Carbon Dioxide Level 30 mmol/L (22-30) Blood Urea Nitrogen 25 mg/dl (9-21) Creatinine 0.60 mg/dl (0.66-1.25) Glomerular Filtration Rate Calc > 60.0 Random Glucose 375 mg/dl (75-110) Lactate 2.4 mmol/L (0.7-2.1) Calcium Level 8.2 mg/dl (8.4-10.2) Total Bilirubin 0.3 mg/dl (0.2-1.3) Aspartate Amino Transf (AST/SGOT) 28 U/L (0-35) Alanine Aminotransferase (ALT/SGPT) 32 U/L (0-56) Alkaline Phosphatase 140 U/L (0-126) Total Protein 6.3 gm/dl (6.3-8.2) Albumin 3.2 g/dl (3.5-5.0) Lipase 39 U/L (23-300) Chemistry Test 12/21/17 00:00 12/21/17 16:35 12/21/17 17:55 C-Reactive Protein 6.2 mg/dl (<1.0) Urine Color Yellow Urine Clarity Cloudy Urine pH 5.0 pH (4.8-9.5) Urine Specific Ava 1.012 Urine Protein Negative mg/dL (NEGATIVE) Urine Glucose (UA) 500 mg/dL (NEGATIVE) Urine Ketones Negative mg/dL (NEGATIVE) Urine Blood Moderate (NEGATIVE) Urine Nitrite Positive (NEGATIVE) Urine Bilirubin Negative (NEGATIVE) Urine Urobilinogen Negative mg/dL (0.2-1.9) Urine Leukocyte Esterase Large (NEGATIVE) Urine RBC 18 /HPF (0-2/HPF) Urine WBC 245 /HPF (0-5/HPF) Urine WBC Clumps Mod /HPF Urine Squamous Epithelial Cells None /LPF (NONE-FEW) Urine Bacteria Few /HPF (NONE-FEW) Urine Mucus None /HPF (NONE-FEW) Urine Yeast (Budding) Few /HPF White Blood Count 7.1 k/uL (4.5-11.0) Red Blood Count 5.24 M/uL (4.00-5.60) Hemoglobin 12.2 g/dL (14.0-18.0) Hematocrit 38.4 % (42.0-52.0) Mean Corpuscular Volume 73.3 fL (80.0-96.0) Mean Corpuscular Hemoglobin 23.2 pg (26.0-33.0) Mean Corpuscular Hemoglobin Concent 31.7 g/dL (32.0-36.0) Red Cell Distribution Width 18.2 % (11.5-14.5) Platelet Count 299 K/uL (150-450) Mean Platelet Volume 7.2 fL (7.2-11.1) Neutrophils (%) (Auto) 67.9 % (39.4-72.5) Lymphocytes (%) (Auto) 16.0 % (17.6-49.6) Monocytes (%) (Auto) 10.4 % (4.1-12.4) Eosinophils (%) (Auto) 5.2 % (0.4-6.7) Basophils (%) (Auto) 0.5 % (0.3-1.4) Nucleated RBC Relative Count (auto) 0.0 /100WBC Neutrophils # (Auto) 4.8 K/uL (2.0-7.4) Lymphocytes # (Auto) 1.1 K/uL (1.3-3.6) Monocytes # (Auto) 0.7 K/uL (0.3-1.0) Eosinophils # (Auto) 0.4 K/uL (0.0-0.5) Basophils # (Auto) 0.0 K/uL (0.0-0.1) Nucleated RBC Absolute Count (auto) 0.00 K/uL Prothrombin Time 74.8 seconds (12.0-14.4) Prothromb Time International Ratio 8.45 Glomerular Filtration Rate Calc > 60.0 Lactate 2.4 mmol/L (0.7-2.1) Calcium Level 8.2 mg/dl (8.4-10.2) Total Bilirubin 0.3 mg/dl (0.2-1.3) Aspartate Amino Transf (AST/SGOT) 28 U/L (0-35) Alanine Aminotransferase (ALT/SGPT) 32 U/L (0-56) Alkaline Phosphatase 140 U/L (0-126) Total Protein 6.3 gm/dl (6.3-8.2) Albumin 3.2 g/dl (3.5-5.0) Lipase 39 U/L (23-300) Coagulation Test 12/21/17 17:55 Prothrombin Time 74.8 seconds Prothromb Time International Ratio 8.45 Urinalysis Test 12/21/17 16:35 Urine Color Yellow Urine Clarity Cloudy Urine pH 5.0 pH (4.8-9.5) Urine Specific Ava 1.012 Urine Protein Negative mg/dL (NEGATIVE) Urine Glucose (UA) 500 mg/dL (NEGATIVE) Urine Ketones Negative mg/dL (NEGATIVE) Urine Blood Moderate (NEGATIVE) Urine Nitrite Positive (NEGATIVE) Urine Bilirubin Negative (NEGATIVE) Urine Urobilinogen Negative mg/dL (0.2-1.9) Urine Leukocyte Esterase Large (NEGATIVE) Urine RBC 18 /HPF (0-2/HPF) Urine WBC 245 /HPF (0-5/HPF) Urine WBC Clumps Mod /HPF Urine Squamous Epithelial Cells None /LPF (NONE-FEW) Urine Bacteria Few /HPF (NONE-FEW) Urine Mucus None /HPF (NONE-FEW) Urine Yeast (Budding) Few /HPF ED Course/Re-evaluation Clinical Indication for ER IV: Hydration ED Course Will obtain labs today. Patient will be given to 2 grams IV Ancef. Patient will be given 1 L normal saline bolus. Discussed patient with Dr. Sybil Hernadez, hospitalist, who states the patient should be transferred to [facility] given his long history of recurrent bacteremia secondary to these catheter formed bodies. 12/21/2017 7:47:12 pm - discussed patient with , Hospitalist at [facility], who will accept patient under his care. Decision to Disposition Date: Dec 21, 2017 Decision to Disposition Time: 19:49 Depart Departure Latest Vital Signs Vital Signs Date Time Temp Pulse Resp B/P (MAP) Pulse Ox O2 Delivery O2 Flow Rate FiO2 12/21/17 19:02 94 97 12/21/17 17:00 105/63 (77) 12/21/17 16:40 98.5 14 Nasal Cannula Impression: Primary Impression: Bacteremia Additional Impressions: Abdominal pain Diabetes mellitus Condition: Improved Disposition: XFER TO [facility] Referrals: LENIN ANTONIO APRN [employer]IOR [employer]-C (PCP) Consult Note: Dr. Sybil Hernadez, Hospitalist Dr. Hinojosa, Hospitalist at [facility] Problem Qualifiers Additional Impressions: Abdominal pain Abdominal location: generalized Qualified Codes: R10.84 - Generalized abdominal pain Diabetes mellitus Diabetes mellitus type: type 2 Diabetes mellitus penitentiary insulin use: unspecified penitentiary insulin use status Diabetes mellitus complication status : with unspecified complications Qualified Codes: E11.8 - Type 2 diabetes mellitus with unspecified complications ETHAN QUINTERO PA-C Dec 21, 2017 19:49
[2017-12-21] MEDS ORDERED: MORPHINE 2 MG/ML SYR IVP ONE (20:00)
[2017-12-21 21:07] VITALS: BP 126/76
[2017-12-21] MEDS ORDERED: INFLUENZA VIRUS VAC 0.5 ML SYR IM ONLY ONE (22:00)
[2017-12-21] MEDS ORDERED: LIDO1ADH44 TD (22:21)
[2017-12-21] MEDS ORDERED: ACET500T68 PO (22:21)
[2017-12-21] MEDS ORDERED: LACT296L PO (22:21)
[2017-12-21] MEDS ORDERED: LANI SUBQ ×2 (22:21)
[2017-12-21] MEDS ORDERED: GABA-503 PO (22:27)
[2017-12-21] MEDS ORDERED: DULO30CA35 PO (22:27)
[2017-12-21] MEDS ORDERED: OXYB5TAB86 PO (22:30)
[2017-12-21] MEDS ORDERED: PANT40TA65 PO (22:30)
[2017-12-21] MEDS ORDERED: MAGN400T36 PO (22:30)
[2017-12-21] MEDS ORDERED: OXYBUTYNIN CHL 5 MG TAB PO PRN (22:35)
[2017-12-21] MEDS: MORPHINE CR 15 MG TABCR PO SCH (22:41)
[2017-12-21 22:42] VITALS: BP 153/84
--- NOTE | 2017-12-21 22:45 | History & Physical ---
History of Present Illness Chief Complaint Fever, bacteremia. History of Present Illness The patient is a 57 year old male with a complicated PMH who was sent to the ER by his PCP, DANIELA Hoover, due to having a positive blood culture ( gram + cocci) which was drawn on 12/19/17. The patient's PMH is significant for recurrent bacteremia with MSSA. The patient was hospitalized at [facility] on several occasions and then transferred to [facility] for further evaluation. He has a PULLER OUT shunt that was felt to be no longer functioning and the possible source of his infection. Per the patient, the shunt was found to be cracked. He was told it would be too dangerous to remove. The patient has had 2 recent hospital stays at [facility] followed by stays at [facility]. He most recently was sent home with Ancef 2g every 8 hours. The patient was to give the antibiotics himself. He admits that it was too hard to do every 8 hours and he was only doing it twice daily. He was also discharged on oral Flagyl. The Ancef finished at the end of November and the Flagyl finished the beginning of December. He was instructed to start cefadroxil 500mg bid after he finished the Ancef. Also while he was at [facility], he was diagnosed with septic PE. He had been on Xarelto and was felt to have failed Xarelto therapy so was placed on Coumadin. The patient developed fever to 102 with rigors several days ago and saw his PCP. Blood cultures were drawn. He complains of generalized achiness, nausea, vomiting and diarrhea with his fever. He denies cough. The patient states that he has developed a yeast infection under his abdomen and in his groin recently and was placed on Nystatin powder for this. He also notes he has had pain and redness in his left lower leg for several days. He has a chronic indwelling Jackson catheter. He denies any urinary symptoms. As noted above, one of two blood cultures from 12/19 is growing a gram positive cocci. History Problems: (1) Septic pulmonary embolism Status: Resolved (2) Recurrent bacteremia Status: Chronic (3) Hypertension Status: Chronic (4) Chronic pain Status: Chronic (5) CAD (coronary artery disease) Status: Chronic (6) Chronic indwelling Jackson catheter Status: Chronic (7) Obesity, morbid, BMI 40.0-49.9 Status: Chronic (8) Hx of necrotising fasciitis Status: Resolved (9) Hx of deep venous thrombosis Status: Chronic (10) Temporal arteritis syndrome Status: Chronic (11) THOMAS (obstructive sleep apnea) Status: Chronic (12) Neurogenic bladder Status: Chronic (13) Type 2 diabetes mellitus Status: Chronic (14) Spina bifida Status: Chronic (15) S/P colostomy Status: Chronic (16) S/P PULLER OUT shunt Status: Chronic (17) History of skin graft Status: Chronic Home Meds Active Scripts Pantoprazole Sodium (PANTOPRAZOLE SODIUM) 40 Mg Tablet.dr, 40 MG PO HS, #90 TAB.SR 1 Refill Prov:JOHN DUQUE MD 12/21/17 Magnesium Oxide (MAGNESIUM OXIDE) 400 Mg Tablet, 1 TAB PO DAILY, #180 TAB 2 Refills Prov:JOHN DUQUE MD 12/21/17 [Ostomy Supplies] No Conflict Check Prov:LENIN ANTONIO APRN 12/21/17 [Mepilex Border Lite] No Conflict Check Prov:LENIN ANTONIO APRN-Mario 12/20/17 NYSTATIN 604016 UNT/ML Topical Cream (NYSTATIN 391859 UNT/ML Topical Cream) 15 Gm Cream..g., 1 JAEL TP BID, #120 GM 2 Refills Apply to yeast infection twice daily until resolved then treat the area once daily M, W, F Prov:LENIN ANTONIO APRN-Mario 12/19/17 Cefadroxil Hydrate (CEFADROXIL) 500 Mg Capsule, 1 CAP PO BID, #180 CAPSULE 3 Refills Prov:LENIN ANTONIO APRN-Mario 12/13/17 Metformin Hcl (METFORMIN HCL) 1,000 Mg Tablet, 1 TAB PO BID, #180 TAB 3 Refills Prov:LENIN ANTONIO APRN 12/12/17 Trazodone Hcl (TRAZODONE HCL) 50 Mg Tablet, 50 MG PO QHS, #90 TAB 1 Refill Prov:LENIN ANTONIO APRN 12/05/17 Citalopram Hydrobromide (CITALOPRAM HBR) 20 Mg Tablet, 1 TAB PO DAILY, #90 TAB 1 Refill Prov:LENIN ANTONIO ANGELLA [facility]- 09/29/17 Oxygen (OXYGEN) Inha, 3 L INH DAILY, #1 EACH Prov:LENIN ANTONIO ANGELLA [facility]- 06/28/17 Furosemide (LASIX) 40 Mg Tablet, 1 TAB PO BID, #180 TAB 1 Refill Prov:LENIN ANTONIO ANGELLA [facility]-C 05/31/17 Atorvastatin Calcium (ATORVASTATIN CALCIUM) 40 Mg Tablet, 1 TAB PO QHS, #90 TAB 1 Refill Prov:LAVELLE ANTONOILORI PERALES [facility]- 04/12/17 Metoprolol Succinate (TOPROL XL) 50 Mg Tab.er.24h, 0.5 TAB PO QDAY, #30 TAB 5 Refills Prov:LENIN ANTONIO ANGELLA [facility] 03/20/17 Reported Medications Oxybutynin Chloride (OXYBUTYNIN CHLORIDE) 5 Mg Tablet, 5 MG PO TID Y for as needed, TAB 12/21/17 Duloxetine Hcl (CYMBALTA) 30 Mg Capsule.dr, 30 MG PO QDAY, #5 CAP 12/21/17 Gabapentin (GABAPENTIN) 600 Mg Tablet, 600 MG PO TID 12/21/17 Lidocaine (Aspercreme) 4 % Adh..patch, 1 PATCH TD DAILY, #30 PATCH Apply one patch to right neck daily. 12/21/17 Insulin Glargine (LANTUS) 100 Unit/Ml Soln, 80 UNIT SUBQ QAM, ML 12/21/17 Insulin Glargine (LANTUS) 100 Unit/Ml Soln, 25 UNIT SUBQ HS, ML 12/21/17 Lactose-Free Food (ENSURE CLEAR) 296 Ml Liquid, 296 ML PO HS 12/21/17 Acetaminophen (TYLENOL EXTRA STRENGTH) 500 Mg Tablet, 1000 MG PO Q6H Y for PAIN , TAB 12/21/17 Morphine Sulfate 15 Mg Er Tab (MORPHINE SULFATE 15 MG ER TAB) 15 Mg Tablet.er, 1 TAB PO Q12H 12/05/17 Oxycodone Hcl 20 Mg Tab (OXYCODONE HCL 20 MG TAB) 20 Mg Tablet, 1 TAB PO Q4H Y for PAIN 12/05/17 Aspirin (ASPIRIN) 81 Mg Tab.chew, 81 MG PO QDAY, TAB.CHEW 12/02/17 Amitriptyline Hcl (AMITRIPTYLINE HCL) 25 Mg Tablet, 25 MG PO QHS, #5 TAB 12/02/17 Warfarin Sodium (WARFARIN SODIUM) 4 Mg Tablet, 1 TAB PO QHS Hassan 4 MG, M 4 MG, Tu 4 MG, W 4 MG, Th 4 MG, F 4 MG, Sa 8 MG 11/24/17 Discontinued Reported Medications Metronidazole (METRONIDAZOLE) 500 Mg Tablet, 1 TAB PO DAILY, #30 0 Refills 12/21/17 Cefazolin Sodium (CEFAZOLIN SODIUM) 10 Gm Vial, 1 VIAL IV Q8H, #42 VIAL 0 Refills 12/21/17 Lidocaine (Aspercreme) 4 % Adh..patch, 1 PATCH TP DAILY 12/07/17 Pantoprazole Sodium (PROTONIX) 40 Mg Granpkt.dr, 40 MG PO QDAY, PACK 12/02/17 Insulin Detemir (LEVEMIR) 100 Unit/Ml Injs, 100 UNIT SUBQ 12/02/17 Duloxetine HCl (Duloxetine HCl) 60 Mg Capsule.dr, 30 MG 12/02/17 Gabapentin (GABAPENTIN) 300 Mg Capsule, 1200 MG PO BID, CAPSULE 10/20/17 Insulin Aspart (NOVOLOG FLEXPEN) 100 Unit/1 Ml Insuln.pen, 15-30 UNIT SQ TIDAC 10/20/17 Metronidazole (FLAGYL) 500 Mg Tablet, 500 MG PO, TAB 12/02/17 Discontinued Scripts Ferrous Sulfate (FERROUS SULFATE) 325 Mg Tablet, 1 TAB PO TID, #60 TAB 2 Refills Prov:LENIN ANTONIO APRN [facility]-C 11/15/16 Allergies: Coded Allergies: vancomycin (Verified Allergy, Severe, Respiratory arrest due to bronchospasm, 12/21/17) Respiratory arrest due to bronchospasm ciprofloxacin (Verified Allergy, Intermediate, TINGLING, 12/21/17) clindamycin (Verified Allergy, Intermediate, RASH, 12/21/17) perflutren (Verified Adverse Reaction, Severe, Respiratory Arrest, 12/21/17) amoxicillin (Verified Adverse Reaction, Mild, N/V/D, 12/21/17) 07/2017: Pt tolerated Unasyn without difficulty clavulanic acid (Verified Adverse Reaction, Mild, N/V/D, 12/21/17) Uncoded Allergies: contrast definity (Allergy, Severe, MENTAL STATUS CHANGES, 08/15/17) went unresponsive Patient History: FH: HTN (hypertension) FATHER BROTHER OR SISTER FH: bladder cancer FATHER FH: diabetes mellitus FATHER MOTHER BROTHER OR SISTER BROTHER OR SISTER NC (myocardial infarction) FATHER Hx Smoking: No Smoking Status: Never Smoker Exposure to Second Hand Smoke?: Yes Caffeine Intake: Tea Caffeine/Cups Per Day: 4-5 Hx Alcohol Use: No Hx Substance Use Disorder: No Social Drug Use: Never History of IV Drug Use: No Review of Systems All Systems Reviewed/Normal: Yes, Except as Noted Constitutional: Fever, Chills (Rigors.) Neurological: Weakness Cardiovascular: No Chest Pain Respiratory: No Shortness of Breath Gastrointestinal: Nausea, Vomiting, Diarrhea Genitourinary: Other (Chronic indwelling jackson.) Musculoskeletal: Other (Chronic back pain.) Psychiatric: Depression Exam Vital Signs Vital Signs Date Time Temp Pulse Resp B/P (MAP) Pulse Ox O2 Delivery O2 Flow Rate FiO2 12/24/17 16:02 97.7 91 16 142/80 (100) 94 Nasal Cannula 3.0 General Appearance: Alert, Awake, No Acute Distress Neuro: Other (Chronic changes related to his spina bifida.) Eyes: PERRLA ENT: Normal Neck: Other (Shunt palpable R neck.) Cardiovascular: Other (Tachy, regular.) Respiratory: No Respiratory Distress, Clear to Auscultation Chest: No Masses, No Tenderness GI: Abd Soft and Non-Tender, Other (Ostomy bag L abdomen.) Lymph: Cervical Nodes Benign Extremities: Warm, Perfused Integumentary: Other (L lower leg with redness, increased warmth anteriorly and medially.) Psych: Alert & Oriented X3, Appropriate Mood & Affect Medical Decision Making Data Points Result Diagram: 12/24/1752812/24/17528 Item Value Date Time Prothrombin Time 74.8 seconds H 12/21/17 175 Prothromb Time International Ratio 8.45 *H 12/21/17 175 Random Glucose 375 mg/dl H 12/21/17 175 Lactate 2.4 mmol/L H 12/21/17 175 Calcium Level 8.2 mg/dl L 12/21/17 175 Total Bilirubin 0.3 mg/dl 12/21/17 175 Aspartate Amino Transf (AST/SGOT) 28 U/L 12/21/17 175 Alanine Aminotransferase (ALT/SGPT) 32 U/L 12/21/17 1755 Alkaline Phosphatase 140 U/L H 12/21/17 1755 Total Protein 6.3 gm/dl 12/21/17 1755 Albumin 3.2 g/dl L 12/21/17 1755 C-Reactive Protein 6.2 mg/dl H 12/21/17 0000 Lipase 39 U/L 12/21/17 1755 Urine Color Yellow 12/21/17 1635 Urine Clarity Cloudy 12/21/17 1635 Urine pH 5.0 pH 12/21/17 1635 Urine Specific [place] 1.012 12/21/17 1635 Urine Protein Negative mg/dL 12/21/17 1635 Urine Glucose (UA) 500 mg/dL 12/21/17 1635 Urine Ketones Negative mg/dL 12/21/17 1635 Urine Blood Moderate 12/21/17 1635 Urine Nitrite Positive H 12/21/17 1635 Urine Bilirubin Negative 12/21/17 1635 Urine Urobilinogen Negative mg/dL 12/21/17 1635 Urine Leukocyte Esterase Large H 12/21/17 1635 Urine RBC 18 /HPF 12/21/17 1635 Urine WBC 245 /HPF 12/21/17 1635 Urine WBC Clumps Mod /HPF 12/21/17 1635 Urine Squamous Epithelial Cells None /LPF 12/21/17 1635 Urine Bacteria Few /HPF 12/21/17 1635 Urine Mucus None /HPF 12/21/17 1635 Urine Yeast (Budding) Few /HPF H 12/21/17 1635 Urine culture pending. EKG / Imaging Imaging [facility] *LIVE* [address] [place] [address] EDY BURNETT M.D., DIRECTOR OF LABORATORY SERVICES DANIAL NUNEZ M.D., PATHOLOGIST RUN DATE: 12/21/17 Specimen Inquiry Report PAGE 1 RUN TIME: 1141 PATIENT: GEORGE ROY ACCT: [id number] LOC: LAB U : [id number] AGE/SX: 57/M ROOM: REG : 12/19/[address]: LENIN ANTONIO APRN : 1960 BED: DIS : STATUS: REG CLI TLOC: SPEC #: [id number] ЕЛЕНА: 12/19/17 STATUS: RES REQ #: [id number] RECD: 12/19/[address]: LENIN ANTONIO APRN [facility] PULLER-C SOURCE: BLOOD PER ENTR: 12/19/17-[address]: SPDES: ORDERED: BCGS, CULT BLOOD COMMENTS: Comments: x2 Procedure Result Verified BLOOD CULTURE GRAM STAIN Final 12/21/17-045 AEROBIC BOTTLE POSITIVE GRAM POSITIVE COCCI POSITIVE BLOOD CULTURE GRAM STAIN REPORT CALLED TO: DR. OBANDO DATE/TIME REPORT CALLED: 12/21/17 @ 4715 CALLED BY: RAMOS WALLACE BLOOD CULTURE Preliminary 12/21/17-1140 Organism 1 GRAM POSITIVE COCCI GROWTH PRESENT IN THE AEROBIC BOTTLE ID AND SENSITIVITY TO FOLLOW NO GROWTH IN ANAEROBIC BOTTLE AT THIS TIME Pre-Admit Course Medical Record Review: Yes Assessment and Plan Problems: (1) Recurrent bacteremia Status: Chronic Assessment & Plan: The patient was discharged from [facility] to [facility]. Per the medication list from discharge, he was to be on Ancef 2g IV q 8 hours through 12/11/17. He was also on oral Flagy 500mg daily which was to continue through 12/15. He was then to start cefadroxil on 12/11. He did not take his medications as prescribed. One of two blood cultures from an office visit with his PCP on 12/19 are growing a gram positive cocci. Blake Mejia PA-C , talked with a hospitalist at [facility] who had taken care of the patient and recommended restarting the Ancef as his cultures at [facility] showed sensitivity. Will continue Ancef 2g q 8 hours while awaiting culture results. (2) Cellulitis, leg Status: Acute Assessment & Plan: The patient has an acute cellulitis of his L lower leg. Will start Ancef as above and monitor. The patient has had anaphylaxis with Vanco in the past. (3) Elevated INR Status: Acute Assessment & Plan: INR was over 8. Hold Coumadin for now. No active bleeding. Recheck INR in am. (4) Candidal intertrigo Status: Acute Assessment & Plan: Continue Nystatin power bid. (5) Noncompliance Status: Chronic Assessment & Plan: The patient will not likely be able to complete a course of IV antibiotics at home if needed. (6) Hypertension Status: Chronic Assessment & Plan: Continue metoprolol succinate 25mg daily. (7) Chronic pain Status: Chronic Assessment & Plan: Continue MS Contin 15mg bid with oxycodone 20mg prn for breakthrough pain. (8) CAD (coronary artery disease) Status: Chronic Assessment & Plan: Continue metoprolol. Will hold ASA for now due to elevated INR. (9) Chronic indwelling Jackson catheter Status: Chronic Assessment & Plan: Urinalysis shows pyuria. Culture pending. (10) Obesity, morbid, BMI 40.0-49.9 Status: Chronic (11) Hx of deep venous thrombosis Status: Chronic Assessment & Plan: Need to get records from [facility]. Apparently he failed Xarelto therapy and was placed on Coumadin. His INR is currently supratherapeutic. See above. (12) Type 2 diabetes mellitus Status: Chronic Assessment & Plan: Per medication list from [facility] and external med history, the patient is taking Lantus twice daily. Humalog was discontinued per his medication list, but is still present on his PCP's med list. The patient will have someone bring his med list from Home Health for review tomorrow. Time Spent on Plan of Care: < 30 min Copies to: LENIN ANTONIO APRN BR[facility]KET PULLER-C Venous Thromboembolism Antithrombotics Is Pt On Any Antithrombotics?: Yes Exam Sepsis Risk: Possible Sepsis Risk Problem Qualifiers (1) Cellulitis, leg: Laterality: left Qualified Codes: L03.116 - Cellulitis of left lower limb (2) Hypertension: Hypertension type: essential hypertension Qualified Codes: I10 - Essential ( primary) hypertension JOHN DUQUE MD Dec 21, 2017 22:45
[2017-12-22] MEDS: ceFAZolin 1 GM VIAL IVP SCH ×3 (05:01→20:14)
[2017-12-22] MEDS: NS(*) 0.9% 1000 ML BAG 1,000 ML IV PRN ×2 (05:01→16:07)
[2017-12-22] MEDS: ACETAMINOPHEN 325 MG TAB PO PRN ×2 (05:05→12:49)
[2017-12-22 05:57] LABS: PLATELET COUNT, AUTOMATED 280 K/uL (150-450)
[2017-12-22 06:20] VITALS: BP 129/76
[2017-12-22 06:31] LABS: INR 6.78
[2017-12-22 07:45] VITALS: BP 123/71
[2017-12-22] MEDS: INSULIN GLARGINE 100 U/ML 3 ML PEN SUBQ SCH ×2 (08:27→20:18)
[2017-12-22] MEDS: METOPROLOL SUCC XL 25 MG TABCR PO SCH (08:27)
[2017-12-22] MEDS: CITALOPRAM HYDROBROM 20 MG TAB PO SCH (08:27)
[2017-12-22] MEDS: NYSTATIN 100,000 U/GM PWD 15GM TP SCH ×2 (08:27→20:18)
[2017-12-22] MEDS: MAGNESIUM OXIDE 400 MG TAB PO SCH (08:27)
[2017-12-22] MEDS: MORPHINE CR 15 MG TABCR PO SCH ×2 (08:27→20:18)
[2017-12-22] MEDS: DULoxetine HCL 30 MG CAPCR PO SCH (08:27)
[2017-12-22] MEDS: GABAPENTIN 300 MG CAP PO SCH ×3 (08:27→20:18)
[2017-12-22] MEDS: INSULIN HUM LISPRO 100 UN/ML 3 ML VIAL SUBQ PRN ×4 (08:28→20:17)
--- NOTE | 2017-12-22 11:25 | Hospitalist Progress Note ---
Subjective Progress Notes Subjective No fevers. He has not had any chills since admission. Physical Exam Vital Signs Date Time Temp Pulse Resp B/P (MAP) Pulse Ox O2 Delivery O2 Flow Rate FiO2 12/22/17 09:09 94 12/22/17 09:09 Nasal Cannula 2.0 12/22/17 07:45 98.2 100 18 123/71 (88) General Appearance: Alert, Awake Neuro: Other (chronic bilateral lower extremity weakness/atrophy) Cardiovascular: Regular Rate and Rhythm Respiratory: Clear to Auscultation GI: Soft and Non-Tender (obese), Other (ostomy left abdomen appears to be functioning normally) Extremities: Warm, Perfused, Other (improved erythema left lower leg) Integumentary: Other (Extensive candidal changes in skin folds of abdomen. Small ulcer over right buttock appears clean at this time) Psych: Alert & Oriented X3 Result Diagram: 12/22/1753612/22/17536 Assessment and Plan Problems: (1) Recurrent bacteremia Status: Chronic Assessment & Plan: The patient was discharged from [facility] to [facility]. Per the medication list from discharge, he was to be on Ancef 2gm IV q 8 hours through 12/11/17. He was also on oral Flagyl 500mg daily which was to continue through 12/15. He was then to start Duricef on 12/11. He did not take his IV medications as prescribed - admitting he usually only did two of the three daily doses. One of two blood cultures from an office visit with his PCP on 12/19 is growing a gram positive cocci. Blake Mejia PA-C, talked with a hospitalist at [facility] who had taken care of the patient and recommended restarting the Ancef as his cultures at [facility] showed sensitivity to it. Will continue Ancef 2gm IV q8 hours while awaiting our culture results. (2) Cellulitis, leg Status: Acute Assessment & Plan: Improved. The patient appears to have an acute cellulitis of his left lower leg. He is on IV Ancef. Watch closely. The patient has had anaphylaxis with Vancomycin in the past. (3) Elevated INR Status: Acute Assessment & Plan: INR was over 8 at admission (now 6.78). Continue to hold Coumadin for now. He does not appear to have any active bleeding. Recheck INR in AM. (4) Candidal intertrigo Status: Acute Assessment & Plan: Continue Nystatin powder BID. (5) Noncompliance Status: Chronic Assessment & Plan: The patient will not likely be able to complete a course of IV antibiotics at home if needed. (6) Hypertension Status: Chronic Assessment & Plan: Continue metoprolol succinate 25mg daily. (7) Chronic pain Status: Chronic Assessment & Plan: Continue MS Contin 15mg bid with oxycodone 20mg prn for breakthrough pain. (8) CAD (coronary artery disease) Status: Chronic Assessment & Plan: Continue metoprolol. Will hold ASA for now due to elevated INR. (9) Chronic indwelling Muñoz catheter Status: Chronic Assessment & Plan: Urinalysis shows pyuria. Culture pending. (10) Obesity, morbid, BMI 40.0-49.9 Status: Chronic (11) Hx of deep venous thrombosis Status: Chronic Assessment & Plan: Need to get records from [facility]. Apparently, it is reported he failed Xarelto therapy and was placed on Coumadin. His INR is currently supra- therapeutic. See above. (12) Type 2 diabetes mellitus Status: Chronic Assessment & Plan: Per medication list from [facility] and external med history, the patient is taking Lantus twice daily. Humalog was discontinued per his medication list, but is still present on his PCP's med list. The patient will have someone bring his med list from Home Health for review. (13) Decubitus ulcer Status: Acute Assessment & Plan: Right buttock. Will have wound care see. Exam Sepsis Risk: No Definite Risk Problem Qualifiers (1) Cellulitis, leg: Laterality: left Qualified Codes: L03.116 - Cellulitis of left lower limb (2) Hypertension: Hypertension type: essential hypertension Qualified Codes: I10 - Essential ( primary) hypertension ANTHONY DUQUE MD Dec 22, 2017 11:25
[2017-12-22 12:38] VITALS: BP 123/68
[2017-12-22 15:05] VITALS: BP 136/81
[2017-12-22 15:28] VITALS: Ht 170.2 cm; Wt 135.7 kg
[2017-12-22] MEDS ORDERED: NS(*) 0.9% 1000 ML BAG 1,000 ML IV PRN (17:17)
[2017-12-22] MEDS ORDERED: PROMETHAZINE 25 MG/ML 1 ML AMP IVP PRN (17:20)
[2017-12-22 19:42] VITALS: BP 132/68
[2017-12-22] MEDS: traZODone HCL 50 MG TAB PO SCH (20:18)
[2017-12-22] MEDS: ATORVASTATIN 40 MG TAB PO SCH (20:18)
[2017-12-22] MEDS: AMITRIPTYLINE HCL 25 MG TAB PO SCH (20:18)
[2017-12-22] MEDS: PANTOPRAZOLE SOD 40 MG TABEC PO SCH (20:18)
[2017-12-22] MEDS ORDERED: INSULIN GLARGINE 100 U/ML 3 ML PEN SUBQ SCH (21:00)
[2017-12-23] MEDS: ACETAMINOPHEN 325 MG TAB PO PRN ×3 (01:27→23:11)
[2017-12-23 01:35] VITALS: BP 130/74
[2017-12-23] MEDS: ceFAZolin 1 GM VIAL IVP SCH (04:14)
[2017-12-23 06:19] LABS: PLATELET COUNT, AUTOMATED 274 K/uL (150-450)
[2017-12-23 06:59] LABS: INR 5.78
[2017-12-23 07:57] VITALS: BP 119/68
[2017-12-23] MEDS: METOPROLOL SUCC XL 25 MG TABCR PO SCH (08:34)
[2017-12-23] MEDS: CITALOPRAM HYDROBROM 20 MG TAB PO SCH (08:34)
[2017-12-23] MEDS: MAGNESIUM OXIDE 400 MG TAB PO SCH (08:34)
[2017-12-23] MEDS: MORPHINE CR 15 MG TABCR PO SCH ×2 (08:34→21:20)
[2017-12-23] MEDS: DULoxetine HCL 30 MG CAPCR PO SCH (08:34)
[2017-12-23] MEDS: NYSTATIN 100,000 U/GM PWD 15GM TP SCH ×2 (08:35→21:21)
[2017-12-23] MEDS: GABAPENTIN 300 MG CAP PO SCH ×3 (08:35→21:20)
[2017-12-23] MEDS: INSULIN HUM LISPRO 100 UN/ML 3 ML VIAL SUBQ PRN ×4 (08:36→21:24)
[2017-12-23] MEDS: INSULIN GLARGINE 100 U/ML 3 ML PEN SUBQ SCH ×2 (08:37→21:21)
[2017-12-23] MEDS: oxyCODONE HCL 5 MG CAP PO PRN ×3 (10:35→19:26)
--- NOTE | 2017-12-23 10:57 | Hospitalist Progress Note ---
Subjective Progress Notes Subjective This patient was admitted for bacteremia. He had no acute events overnight. Patient Complains of: Cardiovascular: No: Chest Pain Respiratory: No: Shortness of Breath Physical Exam Vital Signs Date Time Temp Pulse Resp B/P (MAP) Pulse Ox O2 Delivery O2 Flow Rate FiO2 12/23/17 07:57 91 Nasal Cannula 2.0 12/23/17 07:57 97.6 92 18 119/68 (85) Intake and Output 12/24/17 07:00 Intake Total 0 ml Balance 0 ml Intake Oral 0 ml Cardiovascular: Regular Rate and Rhythm Respiratory: Clear to Auscultation Result Diagram: 12/23/1753412/23/1735 Item Value Date Time Prothromb Time International Ratio 5.78 *H 12/23/1735 Item Value Date Time Urine Culture - Final Complete 12/21/17 1635 Cath Urine Citrobacter Freundii Blood Culture - Final Resulted 12/19/17 1628 Blood Peripheral Draw Assessment and Plan Problems: (1) Recurrent bacteremia Status: Chronic Assessment & Plan: The patient was discharged from [facility] to [facility]. Per the medication list from discharge, he was to be on Ancef 2gm IV q 8 hours through 12/11/17. He was also on oral Flagyl 500mg daily which was to continue through 12/15. He was then to start Duricef on 12/11. He did not take his IV medications as prescribed - admitting he usually only did two of the three daily doses. One of two blood cultures from an office visit with his PCP on 12/19 has grown methicillin sensitive Staphylococcus. The current plan is to leave him on an extended course of the Ancef. He will likely transfer to extended care tomorrow. (2) Cellulitis, leg Status: Acute Assessment & Plan: Resolved on Ancef. (3) Elevated INR Status: Acute Assessment & Plan: His INR has been elevated since admission. He never did receive Vitamin K. His warfarin was held and his INR has been trending down. (4) Candidal intertrigo Status: Acute Assessment & Plan: He is receiving Nystatin powder. (5) Noncompliance Status: Chronic Assessment & Plan: The patient will not likely be able to complete a course of IV antibiotics at home if needed. (6) Hypertension Status: Chronic Assessment & Plan: He is on chronic treatment with metoprolol. (7) Chronic pain Status: Chronic Assessment & Plan: He is on chronic treatment with MS Contin and oxycodone. (8) CAD (coronary artery disease) Status: Chronic Assessment & Plan: He is on chronic treatment with aspirin, which is currently on hold secondary to an elevated INR. (9) Chronic indwelling Muñoz catheter Status: Chronic Assessment & Plan: His urine culture grew Citrobacter, but this is not felt to be clinically relevant since he is chronically colonized and not having urinary symptoms. (10) Obesity, morbid, BMI 40.0-49.9 Status: Chronic (11) Hx of deep venous thrombosis Status: Chronic (12) Type 2 diabetes mellitus Status: Chronic Assessment & Plan: He is on chronic treatment with Lantus. We are also covering him with sliding scale level #2. (13) Decubitus ulcer Status: Acute Assessment & Plan: Physical therapy is consulted for wound care. Exam Sepsis Risk: No Definite Risk Problem Qualifiers (1) Cellulitis, leg: Laterality: left Qualified Codes: L03.116 - Cellulitis of left lower limb (2) Hypertension: Hypertension type: essential hypertension Qualified Codes: I10 - Essential ( primary) hypertension RODRIGO BARRIGA DO Dec 23, 2017 10:57
[2017-12-23 12:15] VITALS: BP 112/61
[2017-12-23] MEDS: ceFAZolin(*) 2GM/D5W 50ML 50 ML IVPB SCH ×2 (12:36→22:28)
--- NOTE | 2017-12-23 14:06 | Medical Nutrition Therapy ---
Nutrition Anthropometrics Height (Inches): 67.00 Height (Calculated Centimeters: [phone] Weight (Pounds): 299 Weight (Calculated Kilograms): 135.681 BMI Calculated: 46.82 Delfino Nutrition Score: Adequate Delfino Nutrition Risk Score: 14 Dietary Referral Nutrition Risk Factors: Non-Healing Wound Nutrition Risk Comment: diabetic but on JERRY Physical Findings Physical Appearance: Morbidly Obese 40+ Skin Appearance Skin Appearance: Edema Edema Location Modifier: Both Edema Location: Lower Extremity Type of Edema: Degree of Edema: 2+ Gastrointestinal Symptoms GI Symtoms: Tube Present: Bowel Sounds: Recent Bowel Pattern: Stool Characteristics: Nutritional Diagnosis Nutritional Risk Acuity 2: Blood Glucose > 300mg/dl Nutritional Risk Acuity 3: Nausea, ST I/II Pressure Ulcer Nutritional Risk Acuity 4: Good Appetite Past Medical History: hx abdominal surgery, colostomy, Type IIDM, Indwelling catheter, Frequent UTI, Spina Bifida, GERD, THOMAS, Neurogenic bladder, Syncope, Dizziness, pulmonary embolus, deep venous thrombosis, small bowel obstruction Nutritional Acuity: 2-Moderate Nutrition Diagnosis: Inconsistent Carb. Intake Nutrition Etiology: Disinterested in Nutr. Ed Nutrition Problem/Etiology/Sym: Inconsistent carb intake related to disinterest in nutrition education as evidenced by BG of 311-213 Diet Type: Diabetic Nutrition Intervention: Cont diet as ordered, Encourage intake Food Dislikes: eggs! Additional Diet Restrictions: GIVE UP TO 75GM CARB/MEAL Diet Comment To RSA: LET PT HAVE LG NON-STARCHY VEG PLATE- COUNT 0 GM CARB Nutrition Monitoring & Eval RD Patient Assessment Time: [address] Assessment Type: RD Assessment Patient Nutrition Acuity: 2-Moderate Follow Up Date: Dec 23, 2017 Nutritional Comment: 12/22 Pt admitted with bacteremia and decubitis ulcers. Alb 3.2, BG elevated up to 375. Pt reporting nausea. Pt on CHO controlled diet. Pt eating 50- 75% of meals. Pt has received diet education in the past and is knowlegible on diabetic diet but does admit to non-complience at home. Will cont to monitor and encourage healthy intake. 12/23 Pt will likely transfer to extended care unit. Intake average 81% of ADA diet. Noting 2+ pitting edema in both LE. Notable labs include low H/H, Na 134, creatinine .5, glc 311-213, total pro 5.6, alb 2.7. Will cont to monitor and encourage intake. JESSICA CHESTER Dec 23, 2017 14:06
[2017-12-23 16:37] VITALS: BP 119/62
[2017-12-23 21:08] VITALS: BP 182/95
[2017-12-23] MEDS: PANTOPRAZOLE SOD 40 MG TABEC PO SCH (21:20)
[2017-12-23] MEDS: ATORVASTATIN 40 MG TAB PO SCH (21:20)
[2017-12-23] MEDS: AMITRIPTYLINE HCL 25 MG TAB PO SCH (21:20)
[2017-12-23] MEDS: traZODone HCL 50 MG TAB PO SCH (22:28)
[2017-12-23 23:34] VITALS: BP 134/76
[2017-12-24] MEDS: oxyCODONE HCL 5 MG CAP PO PRN ×5 (00:16→19:29)
[2017-12-24] MEDS: ceFAZolin(*) 2GM/D5W 50ML 50 ML IVPB SCH ×4 (04:44→22:58)
[2017-12-24 04:46] VITALS: BP 146/87
[2017-12-24] MEDS: ACETAMINOPHEN 325 MG TAB PO PRN ×2 (05:51→20:31)
[2017-12-24 06:10] LABS: INR 4.46
[2017-12-24 06:21] LABS: PLATELET COUNT, AUTOMATED 238 K/uL (150-450)
--- NOTE | 2017-12-24 06:34 | Hospitalist Depart ---
Discharge Summary Reason for Hosp/Final Diag: (1) Recurrent bacteremia Status: Chronic Hospital Course & Plan: The patient was discharged from [facility] Per the medication list from discharge, he was to be on Ancef 2gm IV q 8 hours through 12/11/17. He was also on oral Flagyl 500mg daily which was to continue through 12/15. He was then to start Duricef on 12/11. He did not take his IV medications as prescribed - admitting he usually only did two of the three daily doses. One of two blood cultures from an office visit with his PCP on 12/19 has grown methicillin sensitive Staphylococcus. The current plan is to leave him on an extended course of the Ancef. (2) Cellulitis, leg Status: Acute Hospital Course & Plan: Resolved on Ancef. (3) Elevated INR Status: Acute Hospital Course & Plan: His INR has been elevated since admission. He never did receive Vitamin K. His warfarin was held and his INR has been trending down. (4) Candidal intertrigo Status: Acute Hospital Course & Plan: He is receiving Nystatin powder. (5) Noncompliance Status: Chronic Hospital Course & Plan: The patient will not likely be able to complete a course of IV antibiotics at home if needed. (6) Hypertension Status: Chronic Hospital Course & Plan: He is on chronic treatment with metoprolol. (7) Chronic pain Status: Chronic Hospital Course & Plan: He is on chronic treatment with MS Contin and oxycodone. (8) CAD (coronary artery disease) Status: Chronic Hospital Course & Plan: He is on chronic treatment with aspirin, which is currently on hold secondary to an elevated INR. (9) Chronic indwelling Muñoz catheter Status: Chronic Hospital Course & Plan: His urine culture grew Citrobacter, but this is not felt to be clinically relevant since he is chronically colonized and not having urinary symptoms. (10) Obesity, morbid, BMI 40.0-49.9 Status: Chronic (11) Hx of deep venous thrombosis Status: Chronic (12) Type 2 diabetes mellitus Status: Chronic Hospital Course & Plan: He is on chronic treatment with Lantus. We are also covering him with sliding scale level #2. (13) Decubitus ulcer Status: Acute Hospital Course & Plan: Physical therapy is consulted for wound care. Departure Latest Vital Signs Vital Signs 12/23/17 12/24/17 21:20 04:46 Temp 97.9 Pulse 93 Resp 16 B/P (MAP) 146/87 (106) Pulse Ox 97 O2 Delivery Nasal Cannula O2 Flow Rate 2.0 Weight (Pounds): 299 Weight (Ounces): 2.0 Result Diagram: 12/24/1752812/24/17528 Condition: Improved Discharge: [facility] PT/OT Follow Up For: PT Evaluation and Treat, OT Evaluation and Treat Home Health RN Follow Up For: Nursing Assessment Home Health MEDICAL MICROBIOLOGIST Follow Up For: ADL Assistance Follow-Up Labs: Finger Sticks, INR Discharge Instructions Home Meds Active Scripts Pantoprazole Sodium (PANTOPRAZOLE SODIUM) 40 Mg Tablet.dr, 40 MG PO HS, #90 TAB.SR 1 Refill Prov:JOHN DUQUE MD 12/21/17 Magnesium Oxide (MAGNESIUM OXIDE) 400 Mg Tablet, 1 TAB PO DAILY, #180 TAB 2 Refills Prov:JOHN DUQUE MD 12/21/17 [Ostomy Supplies] No Conflict Check Prov:LENIN ANTONIO APRN-Mario 12/21/17 [Mepilex Border Lite] No Conflict Check Prov:LENIN ANTONIO APRN-C 12/20/17 NYSTATIN [id number] UNT/ML Topical Cream (NYSTATIN [id number] UNT/ML Topical Cream) 15 Gm Cream..g., 1 JAEL TP BID, #120 GM 2 Refills Apply to yeast infection twice daily until resolved then treat the area once daily M, W, F Prov:LENIN ANTONIO APRN-C 12/19/17 Cefadroxil Hydrate (CEFADROXIL) 500 Mg Capsule, 1 CAP PO BID, #180 CAPSULE 3 Refills Prov:LENIN ANTONIO APRN-C 12/13/17 Metformin Hcl (METFORMIN HCL) 1,000 Mg Tablet, 1 TAB PO BID, #180 TAB 3 Refills Prov:LENIN ANTONIO APRN-C 12/12/17 Trazodone Hcl (TRAZODONE HCL) 50 Mg Tablet, 50 MG PO QHS, #90 TAB 1 Refill Prov:LENIN ANTONIO APRN 12/05/17 Citalopram Hydrobromide (CITALOPRAM HBR) 20 Mg Tablet, 1 TAB PO DAILY, #90 TAB 1 Refill Prov:LENIN ANTONIO ANGELLA PATTERSONP-C 09/29/17 Oxygen (OXYGEN) Inha, 3 L INH DAILY, #1 EACH Prov:LENIN ANTONIO ANGELLA [employer] [place]-C 06/28/17 Furosemide (LASIX) 40 Mg Tablet, 1 TAB PO BID, #180 TAB 1 Refill Prov:SANDRAMyriamLUCIANOLENIN APRN [facility]-C 05/31/17 Atorvastatin Calcium (ATORVASTATIN CALCIUM) 40 Mg Tablet, 1 TAB PO QHS, #90 TAB 1 Refill Prov:SANDRAMyriamLUCIANOLENIN APRN [facility] 04/12/17 Metoprolol Succinate (TOPROL XL) 50 Mg Tab.er.24h, 0.5 TAB PO QDAY, #30 TAB 5 Refills Prov:LAVELLE ANTONIOLORI PERALES [facility] 03/20/17 Reported Medications Oxybutynin Chloride (OXYBUTYNIN CHLORIDE) 5 Mg Tablet, 5 MG PO TID Y for as needed, TAB 12/21/17 Duloxetine Hcl (CYMBALTA) 30 Mg Capsule.dr, 30 MG PO QDAY, #5 CAP 12/21/17 Gabapentin (GABAPENTIN) 600 Mg Tablet, 600 MG PO TID 12/21/17 Lidocaine (Aspercreme) 4 % Adh..patch, 1 PATCH TD DAILY, #30 PATCH Apply one patch to right neck daily. 12/21/17 Insulin Glargine (LANTUS) 100 Unit/Ml Soln, 80 UNIT SUBQ QAM, ML 12/21/17 Insulin Glargine (LANTUS) 100 Unit/Ml Soln, 25 UNIT SUBQ HS, ML 12/21/17 Lactose-Free Food (ENSURE CLEAR) 296 Ml Liquid, 296 ML PO HS 12/21/17 Acetaminophen (TYLENOL EXTRA STRENGTH) 500 Mg Tablet, 1000 MG PO Q6H Y for PAIN , TAB 12/21/17 Morphine Sulfate 15 Mg Er Tab (MORPHINE SULFATE 15 MG ER TAB) 15 Mg Tablet.er, 1 TAB PO Q12H 12/05/17 Oxycodone Hcl 20 Mg Tab (OXYCODONE HCL 20 MG TAB) 20 Mg Tablet, 1 TAB PO Q4H Y for PAIN 12/05/17 Aspirin (ASPIRIN) 81 Mg Tab.chew, 81 MG PO QDAY, TAB.CHEW 12/02/17 Amitriptyline Hcl (AMITRIPTYLINE HCL) 25 Mg Tablet, 25 MG PO QHS, #5 TAB 12/02/17 Warfarin Sodium (WARFARIN SODIUM) 4 Mg Tablet, 1 TAB PO QHS Hassan 4 MG, M 4 MG, Tu 4 MG, W 4 MG, Th 4 MG, F 4 MG, Sa 8 MG 11/24/17 Discontinued Reported Medications Metronidazole (METRONIDAZOLE) 500 Mg Tablet, 1 TAB PO DAILY, #30 0 Refills 12/21/17 Cefazolin Sodium (CEFAZOLIN SODIUM) 10 Gm Vial, 1 VIAL IV Q8H, #42 VIAL 0 Refills 12/21/17 Lidocaine (Aspercreme) 4 % Adh..patch, 1 PATCH TP DAILY 12/07/17 Pantoprazole Sodium (PROTONIX) 40 Mg Granpkt.dr, 40 MG PO QDAY, PACK 12/02/17 Insulin Detemir (LEVEMIR) 100 Unit/Ml Injs, 100 UNIT SUBQ 12/02/17 Duloxetine HCl (Duloxetine HCl) 60 Mg Capsule.dr, 30 MG 12/02/17 Gabapentin (GABAPENTIN) 300 Mg Capsule, 1200 MG PO BID, CAPSULE 10/20/17 Insulin Aspart (NOVOLOG FLEXPEN) 100 Unit/1 Ml Insuln.pen, 15-30 UNIT SQ TIDAC 10/20/17 Metronidazole (FLAGYL) 500 Mg Tablet, 500 MG PO, TAB 12/02/17 Discontinued Scripts Ferrous Sulfate (FERROUS SULFATE) 325 Mg Tablet, 1 TAB PO TID, #60 TAB 2 Refills Prov:LENIN ANTONIO APRN 11/15/16 Diet: Diabetic Activity: As Tolerated Copies to: LENIN ANTONIO APRN-Mario Venous Thromboembolism Antithrombotics Is Pt On Any Antithrombotics?: Yes Problem Qualifiers (1) Cellulitis, leg: Laterality: left Qualified Codes: L03.116 - Cellulitis of left lower limb (2) Hypertension: Hypertension type: essential hypertension Qualified Codes: I10 - Essential ( primary) hypertension RODRIGO BARRIGA DO Dec 24, 2017 06:34
[2017-12-24 07:35] VITALS: BP 130/76
[2017-12-24] MEDS: INSULIN HUM LISPRO 100 UN/ML 3 ML VIAL SUBQ PRN ×4 (07:52→20:37)
[2017-12-24] MEDS: NYSTATIN 100,000 U/GM PWD 15GM TP SCH ×2 (08:35→20:33)
[2017-12-24] MEDS: MORPHINE CR 15 MG TABCR PO SCH ×2 (08:35→20:30)
[2017-12-24] MEDS: CITALOPRAM HYDROBROM 20 MG TAB PO SCH (08:35)
[2017-12-24] MEDS: GABAPENTIN 300 MG CAP PO SCH ×3 (08:35→20:30)
[2017-12-24] MEDS: MAGNESIUM OXIDE 400 MG TAB PO SCH (08:35)
[2017-12-24] MEDS: DULoxetine HCL 30 MG CAPCR PO SCH (08:35)
[2017-12-24] MEDS: METOPROLOL SUCC XL 25 MG TABCR PO SCH (08:35)
[2017-12-24] MEDS: INSULIN GLARGINE 100 U/ML 3 ML PEN SUBQ SCH (08:36)
[2017-12-24 11:37] VITALS: BP 140/85
[2017-12-24 16:02] VITALS: BP 142/80
[2017-12-24 19:30] VITALS: BP 152/75
[2017-12-24] MEDS: ATORVASTATIN 40 MG TAB PO SCH (20:30)
[2017-12-24] MEDS: PANTOPRAZOLE SOD 40 MG TABEC PO SCH (20:30)
[2017-12-24] MEDS: AMITRIPTYLINE HCL 25 MG TAB PO SCH (20:31)
[2017-12-24] MEDS ORDERED: INSULIN GLARGINE 100 U/ML 3 ML PEN SUBQ SCH (21:00)
[2017-12-24] MEDS: traZODone HCL 50 MG TAB PO SCH (22:56)
[2017-12-24 23:00] VITALS: BP 135/72
[2017-12-25] MEDS: oxyCODONE HCL 5 MG CAP PO PRN ×2 (05:59→10:31)
[2017-12-25] MEDS: ceFAZolin(*) 2GM/D5W 50ML 50 ML IVPB SCH ×2 (05:59→13:40)
[2017-12-25 06:01] VITALS: BP 146/70
[2017-12-25 07:09] VITALS: BP 137/67
[2017-12-25] MEDS: INSULIN HUM LISPRO 100 UN/ML 3 ML VIAL SUBQ PRN ×2 (07:10→12:11)
[2017-12-25] MEDS: DULoxetine HCL 30 MG CAPCR PO SCH (08:17)
[2017-12-25] MEDS: MAGNESIUM OXIDE 400 MG TAB PO SCH (08:17)
[2017-12-25] MEDS: MORPHINE CR 15 MG TABCR PO SCH (08:17)
[2017-12-25] MEDS: METOPROLOL SUCC XL 25 MG TABCR PO SCH (08:17)
[2017-12-25] MEDS: CITALOPRAM HYDROBROM 20 MG TAB PO SCH (08:17)
[2017-12-25] MEDS: GABAPENTIN 300 MG CAP PO SCH ×2 (08:17→13:40)
[2017-12-25] MEDS: NYSTATIN 100,000 U/GM PWD 15GM TP SCH (08:18)
[2017-12-25] MEDS ORDERED: INSULIN GLARGINE 100 U/ML 3 ML PEN SUBQ SCH (09:00)
[2017-12-25 10:07] LABS: INR 1.85
[2017-12-25 10:58] VITALS: BP 119/60
--- NOTE | 2017-12-25 11:54 | Miscellaneous Provider Note ---
Miscellaneous Provider Note Note Will need to hold off on transfer to [facility] as he still has modestly elevated protime/INR and will need PICC line placement for retirement IV antibiotics. If we can get line placed will transfer. ANTHONY DUQUE MD Dec 25, 2017 11:54
[2017-12-25] MEDS ORDERED: NS(*) 0.9% 250 ML BAG 250 ML ONE (13:41)
--- NOTE | 2017-12-25 17:42 | RADIOLOGY IMAGING REPORT ---
FACILITY: [facility] - [place] PATIENT NAME: Rodrigue Phillips : 1960 MR: [id number] V: [id number] EXAM DATE: ORDERING PHYSICIAN: ANTHONY DUQUE TECHNOLOGIST: Location: [facility] [place] Patient: Rodrigue Phillips : 1960 Visit/Account:[id number] Date of Sevice: 12/25/2017 Exam type: PICC LINE INSERTION, PICC LINE PLACEMENT History: IV antibiotics Comparison: November 23, 2017. Findings: Informed consent was obtained. The patient's right arm was prepped and draped in usual sterile fashi on. Local anesthesia was accomplished with 1% lidocaine. Utilizing both sonographic and fluoroscopi c guidance a 31 cm long trimmed 5 Romanian double lumen power PICC was inserted via the patent right ba silic vein with the distal tip resting at the junction of the right axillary vein and subclavian vein . Due to a chronic occlusion distally the PICC line could not be advanced further. The proximal por tion of the PICC line was adhered to the patient's arm with a sterile dressing. Both lumens of the p ower PICC were flushed with 5 mL of saline flush. The sonographic images were saved to PACS. The pr ocedure was accomplished without apparent complication. The fluoroscopy dose area product was 153.46 micro-Prater per meter squared IMPRESSION: 1. Successful placement of a 31 cm long trimmed 5 Romanian double-lumen power PICC inserted via the pa tent right basilic vein with the distal tip resting at the junction of the right axillary vein and haines bclavian vein. Report Dictated By: Milena Olea MD at 12/25/2017 5:34 PM Report E-Signed By: Milena Olea MD at 12/25/2017 5:38 PM WSN:[email or web address]
--- NOTE | 2017-12-25 17:43 | RADIOLOGY IMAGING REPORT ---
FACILITY: [facility] - [place], [place] PATIENT NAME: Rodrigue Phillips : 1960 MR: [id number] V: [id number] EXAM DATE: ORDERING PHYSICIAN: ANTHONY DUQUE TECHNOLOGIST: Location: [facility] [place] Patient: Rodrigue Phillips : 1960 Visit/Account:[id number] Date of Sevice: 12/25/2017 Exam type: PICC LINE INSERTION, PICC LINE PLACEMENT History: IV antibiotics Comparison: November 23, 2017. Findings: Informed consent was obtained. The patient's right arm was prepped and draped in usual sterile fashi on. Local anesthesia was accomplished with 1% lidocaine. Utilizing both sonographic and fluoroscopi c guidance a 31 cm long trimmed 5 Khmer double lumen power PICC was inserted via the patent right ba silic vein with the distal tip resting at the junction of the right axillary vein and subclavian vein . Due to a chronic occlusion distally the PICC line could not be advanced further. The proximal por tion of the PICC line was adhered to the patient's arm with a sterile dressing. Both lumens of the p ower PICC were flushed with 5 mL of saline flush. The sonographic images were saved to PACS. The pr ocedure was accomplished without apparent complication. The fluoroscopy dose area product was 153.46 micro-Prater per meter squared IMPRESSION: 1. Successful placement of a 31 cm long trimmed 5 Khmer double-lumen power PICC inserted via the pa tent right basilic vein with the distal tip resting at the junction of the right axillary vein and haines bclavian vein. Report Dictated By: Milena Olea MD at 12/25/2017 5:34 PM Report E-Signed By: Milena Olea MD at 12/25/2017 5:38 PM WSN:[email or web address]
[2017-12-26] MEDS ORDERED: OXYGENHOME INH (10:30)
[2017-12-26] MEDS ORDERED: LANI SUBQ (12:19)
== END 2017-12-25 14:50 | DRG 91 ==
LOC: ER 16:17 → MED 20:16 → ECF 12-25 14:50 → MED 12-25 14:50
PROVIDERS: ADMIT Internal Medicine; ATTEND Internal Medicine
PROC: 05H533Z Insertion of Infusion Device into Right Subclavian Vein, Percutaneous Approach (ICD-10-PCS; principal; 2017-12-25)
PROC: B546ZZA Ultrasonography of Right Subclavian Vein, Guidance (ICD-10-PCS; 2017-12-25)
DX: T85.730A Infection and inflammatory reaction due to ventricular intracranial (communicating) shunt, initial encounter (principal); L89.313 Pressure ulcer of right buttock, stage 3; L03.116 Cellulitis of left lower limb; Z68.42 Body mass index [BMI] 45.0-49.9, adult; I10 Essential (primary) hypertension; B37.2 Candidiasis of skin and nail; G89.29 Other chronic pain; I25.10 Atherosclerotic heart disease of native coronary artery without angina pectoris; E66.01 Morbid (severe) obesity due to excess calories; N31.9 Neuromuscular dysfunction of bladder, unspecified; E11.65 Type 2 diabetes mellitus with hyperglycemia; M31.6 Other giant cell arteritis; G47.33 Obstructive sleep apnea (adult) (pediatric); B95.61 Methicillin susceptible Staphylococcus aureus infection as the cause of diseases classified elsewhere; Q05.9 Spina bifida, unspecified; Z91.128 Patient's intentional underdosing of medication regimen for other reason; Z86.718 Personal history of other venous thrombosis and embolism; Z79.01 Long term (current) use of anticoagulants; Z79.4 Long term (current) use of insulin; Z88.0 Allergy status to penicillin; Z88.1 Allergy status to other antibiotic agents; Z88.8 Allergy status to other drugs, medicaments and biological substances; Z91.041 Radiographic dye allergy status; Z93.3 Colostomy status; Z87.440 Personal history of urinary (tract) infections; Z98.2 Presence of cerebrospinal fluid drainage device; Z90.49 Acquired absence of other specified parts of digestive tract
CPT/HCPCS: 36415; 36416; 36569; 71045; 76937; 81001; 82040; 82247; 82274; 82310; 82374; 82435; 82565; 82947; 82948; 83605; 83690; 84075; 84132; 84155; 84295; 84450; 84460; 84520; 85025; 85610; 86140; 87040; 87077; 87088; 87186; 87324; 87449; 96361; 96365; 96375; 97163; 99285; C1751; J0690; J1815; J2270; J2550; J7030; J7050

== ENCOUNTER 2017-12-25 14:50 | Inpatient (IN) | payer MEDICARE, MEDICAID ==
[~2017-12-25] VITALS: Ht 170.2 cm; Wt 138.3 kg
[~2017-12-25 14:50] MED LIST changes: +ACET500T68 PO; +DULO30CA35 PO; +LACT296L PO; +LIDO1ADH44 TD
[2017-12-25 15:14] VITALS: BP 147/86
[2017-12-25] MEDS ORDERED: OXYBUTYNIN CHL 5 MG TAB PO PRN (15:32)
[2017-12-25] MEDS: oxyCODONE HCL 5 MG CAP PO PRN ×2 (15:53→20:01)
[2017-12-25] MEDS: WARFARIN SOD 4 MG TAB PO SCH (15:53)
--- NOTE | 2017-12-25 16:49 | ECF H&P BLANK ---
F H&P UPDATE History of Present Illness Chief Complaint Fever, bacteremia. History of Present Illness The patient is a 57 year old male with a complicated PMH who was sent to the ER by his PCP, DANIELA Hoover, due to having a positive blood culture ( gram + cocci) which was drawn on 12/19/17. The patient's PMH is significant for recurrent bacteremia with MSSA. The patient was hospitalized at [facility] on several occasions and then transferred to [facility] for further evaluation. He has a ENTRY LEVEL CHEMIST shunt that was felt to be no longer functioning and the possible source of his infection. Per the patient, the shunt was found to be cracked. He was told it would be too dangerous to remove. The patient has had 2 recent hospital stays at [facility] followed by stays at [facility]. He most recently was sent home with Ancef 2g every 8 hours. The patient was to give the antibiotics himself. He admits that it was too hard to do every 8 hours and he was only doing it twice daily. He was also discharged on oral Flagyl. The Ancef finished at the end of November and the Flagyl finished the beginning of December. He was instructed to start cefadroxil 500mg bid after he finished the Ancef. Also while he was at [facility], he was diagnosed with septic PE. He had been on Xarelto and was felt to have failed Xarelto therapy so was placed on Coumadin. The patient developed fever to 102 with rigors several days ago and saw his PCP. Blood cultures were drawn. He complains of generalized achiness, nausea, vomiting and diarrhea with his fever. He denies cough. The patient states that he has developed a yeast infection under his abdomen and in his groin recently and was placed on Nystatin powder for this. He also notes he has had pain and redness in his left lower leg for several days. He has a chronic indwelling Jackson catheter. He denies any urinary symptoms. As noted above, one of two blood cultures from 12/19 is growing a gram positive cocci. History Problems: (1) Septic pulmonary embolism Status: Resolved (2) Recurrent bacteremia Status: Chronic (3) Hypertension Status: Chronic (4) Chronic pain Status: Chronic (5) CAD (coronary artery disease) Status: Chronic (6) Chronic indwelling Jackson catheter Status: Chronic (7) Obesity, morbid, BMI 40.0-49.9 Status: Chronic (8) Hx of necrotising fasciitis Status: Resolved (9) Hx of deep venous thrombosis Status: Chronic (10) Temporal arteritis syndrome Status: Chronic (11) THOMAS (obstructive sleep apnea) Status: Chronic (12) Neurogenic bladder Status: Chronic (13) Type 2 diabetes mellitus Status: Chronic (14) Spina bifida Status: Chronic (15) S/P colostomy Status: Chronic (16) S/P ENTRY LEVEL CHEMIST shunt Status: Chronic (17) History of skin graft Status: Chronic Home Meds Active Scripts Pantoprazole Sodium (PANTOPRAZOLE SODIUM) 40 Mg Tablet.dr, 40 MG PO HS, #90 TAB.SR 1 Refill Prov:JOHN DUQUE MD 12/21/17 Magnesium Oxide (MAGNESIUM OXIDE) 400 Mg Tablet, 1 TAB PO DAILY, #180 TAB 2 Refills Prov:JOHN DUQUE MD 12/21/17 [Ostomy Supplies] No Conflict Check Prov:LENIN ANTONIO APRN-Mario 12/21/17 [Mepilex Border Lite] No Conflict Check Prov:LENIN ANTONIO APRN-C 12/20/17 NYSTATIN 912851 UNT/ML Topical Cream (NYSTATIN 103401 UNT/ML Topical Cream) 15 Gm Cream..g., 1 JAEL TP BID, #120 GM 2 Refills Apply to yeast infection twice daily until resolved then treat the area once daily M, W, F Prov:LENIN ANTONIO APRN-C 12/19/17 Cefadroxil Hydrate (CEFADROXIL) 500 Mg Capsule, 1 CAP PO BID, #180 CAPSULE 3 Refills Prov:LENIN ANTONIO APRN-C 12/13/17 Metformin Hcl (METFORMIN HCL) 1,000 Mg Tablet, 1 TAB PO BID, #180 TAB 3 Refills Prov:LENIN ANTONIO APRN-Mario 12/12/17 Trazodone Hcl (TRAZODONE HCL) 50 Mg Tablet, 50 MG PO QHS, #90 TAB 1 Refill Prov:LENIN ANTONIO APRN-C 12/05/17 Citalopram Hydrobromide (CITALOPRAM HBR) 20 Mg Tablet, 1 TAB PO DAILY, #90 TAB 1 Refill Prov:LENIN ANTONIO ANGELLA SOFT CRAB SHEDDER-C 09/29/17 Oxygen (OXYGEN) Inha, 3 L INH DAILY, #1 EACH Prov:LENIN ANTONIO ANGELLA PATTERSONP-C 06/28/17 Furosemide (LASIX) 40 Mg Tablet, 1 TAB PO BID, #180 TAB 1 Refill Prov:LENIN ANTONIO ANGELLA SOFT CRAB SHEDDER-C 05/31/17 Atorvastatin Calcium (ATORVASTATIN CALCIUM) 40 Mg Tablet, 1 TAB PO QHS, #90 TAB 1 Refill Prov:LAVELLE ANTONIOLORI PERALES [facility]-C 04/12/17 Metoprolol Succinate (TOPROL XL) 50 Mg Tab.er.24h, 0.5 TAB PO QDAY, #30 TAB 5 Refills Prov:LENIN ANTONIO ANGELLA [facility]-C 03/20/17 Reported Medications Oxybutynin Chloride (OXYBUTYNIN CHLORIDE) 5 Mg Tablet, 5 MG PO TID Y for as needed, TAB 12/21/17 Duloxetine Hcl (CYMBALTA) 30 Mg Capsule.dr, 30 MG PO QDAY, #5 CAP 12/21/17 Gabapentin (GABAPENTIN) 600 Mg Tablet, 600 MG PO TID 12/21/17 Lidocaine (Aspercreme) 4 % Adh..patch, 1 PATCH TD DAILY, #30 PATCH Apply one patch to right neck daily. 12/21/17 Insulin Glargine (LANTUS) 100 Unit/Ml Soln, 80 UNIT SUBQ QAM, ML 12/21/17 Insulin Glargine (LANTUS) 100 Unit/Ml Soln, 25 UNIT SUBQ HS, ML 12/21/17 Lactose-Free Food (ENSURE CLEAR) 296 Ml Liquid, 296 ML PO HS 12/21/17 Acetaminophen (TYLENOL EXTRA STRENGTH) 500 Mg Tablet, 1000 MG PO Q6H Y for PAIN , TAB 12/21/17 Morphine Sulfate 15 Mg Er Tab (MORPHINE SULFATE 15 MG ER TAB) 15 Mg Tablet.er, 1 TAB PO Q12H 12/05/17 Oxycodone Hcl 20 Mg Tab (OXYCODONE HCL 20 MG TAB) 20 Mg Tablet, 1 TAB PO Q4H Y for PAIN 12/05/17 Aspirin (ASPIRIN) 81 Mg Tab.chew, 81 MG PO QDAY, TAB.CHEW 12/02/17 Amitriptyline Hcl (AMITRIPTYLINE HCL) 25 Mg Tablet, 25 MG PO QHS, #5 TAB 12/02/17 Warfarin Sodium (WARFARIN SODIUM) 4 Mg Tablet, 1 TAB PO QHS Hassan 4 MG, M 4 MG, Tu 4 MG, W 4 MG, Th 4 MG, F 4 MG, Sa 8 MG 11/24/17 Discontinued Reported Medications Metronidazole (METRONIDAZOLE) 500 Mg Tablet, 1 TAB PO DAILY, #30 0 Refills 12/21/17 Cefazolin Sodium (CEFAZOLIN SODIUM) 10 Gm Vial, 1 VIAL IV Q8H, #42 VIAL 0 Refills 12/21/17 Lidocaine (Aspercreme) 4 % Adh..patch, 1 PATCH TP DAILY 12/07/17 Pantoprazole Sodium (PROTONIX) 40 Mg Granpkt.dr, 40 MG PO QDAY, PACK 12/02/17 Insulin Detemir (LEVEMIR) 100 Unit/Ml Injs, 100 UNIT SUBQ 12/02/17 Duloxetine HCl (Duloxetine HCl) 60 Mg Capsule.dr, 30 MG 12/02/17 Gabapentin (GABAPENTIN) 300 Mg Capsule, 1200 MG PO BID, CAPSULE 10/20/17 Insulin Aspart (NOVOLOG FLEXPEN) 100 Unit/1 Ml Insuln.pen, 15-30 UNIT SQ TIDAC 10/20/17 Metronidazole (FLAGYL) 500 Mg Tablet, 500 MG PO, TAB 12/02/17 Discontinued Scripts Ferrous Sulfate (FERROUS SULFATE) 325 Mg Tablet, 1 TAB PO TID, #60 TAB 2 Refills Prov:LENIN ANTONIO APRN SOFT CRAB SHEDDER-C 11/15/16 Allergies: Coded Allergies: vancomycin (Verified Allergy, Severe, Respiratory arrest due to bronchospasm, 12/21/17) Respiratory arrest due to bronchospasm ciprofloxacin (Verified Allergy, Intermediate, TINGLING, 12/21/17) clindamycin (Verified Allergy, Intermediate, RASH, 12/21/17) perflutren (Verified Adverse Reaction, Severe, Respiratory Arrest, 12/21/17) amoxicillin (Verified Adverse Reaction, Mild, N/V/D, 12/21/17) 07/2017: Pt tolerated Unasyn without difficulty clavulanic acid (Verified Adverse Reaction, Mild, N/V/D, 12/21/17) Uncoded Allergies: contrast definity (Allergy, Severe, MENTAL STATUS CHANGES, 08/15/17) went unresponsive Patient History: FH: HTN (hypertension) FATHER BROTHER OR SISTER FH: bladder cancer FATHER FH: diabetes mellitus FATHER MOTHER BROTHER OR SISTER BROTHER OR SISTER [place] (myocardial infarction) FATHER Hx Smoking: No Smoking Status: Never Smoker Exposure to Second Hand Smoke?: Yes Caffeine Intake: Tea Caffeine/Cups Per Day: 4-5 Hx Alcohol Use: No Hx Substance Use Disorder: No Social Drug Use: Never History of IV Drug Use: No Review of Systems All Systems Reviewed/Normal: Yes, Except as Noted Constitutional: Fever, Chills (Rigors.) Neurological: Weakness Cardiovascular: No Chest Pain Respiratory: No Shortness of Breath Gastrointestinal: Nausea, Vomiting, Diarrhea Genitourinary: Other (Chronic indwelling jackson.) Musculoskeletal: Other (Chronic back pain.) Psychiatric: Depression Exam Vital Signs Vital Signs Date Time Temp Pulse Resp B/P (MAP) Pulse Ox O2 Delivery O2 Flow Rate FiO2 12/24/17 16:02 97.7 91 16 142/80 (100) 94 Nasal Cannula 3.0 General Appearance: Alert, Awake, No Acute Distress Neuro: Other (Chronic changes related to his spina bifida.) Eyes: PERRLA ENT: Normal Neck: Other (Shunt palpable R neck.) Cardiovascular: Other (Tachy, regular.) Respiratory: No Respiratory Distress, Clear to Auscultation Chest: No Masses, No Tenderness GI: Abd Soft and Non-Tender, Other (Ostomy bag L abdomen.) Lymph: Cervical Nodes Benign Extremities: Warm, Perfused Integumentary: Other (L lower leg with redness, increased warmth anteriorly and medially.) Psych: Alert & Oriented X3, Appropriate Mood & Affect Medical Decision Making Data Points Result Diagram: 12/24/1752812/24/17528 Item Value Date Time Prothrombin Time 74.8 seconds H 12/21/17 175 Prothromb Time International Ratio 8.45 *H 12/21/17 175 Random Glucose 375 mg/dl H 12/21/17 1755 Lactate 2.4 mmol/L H 12/21/17 175 Calcium Level 8.2 mg/dl L 12/21/17 175 Total Bilirubin 0.3 mg/dl 12/21/17 1755 Aspartate Amino Transf (AST/SGOT) 28 U/L 12/21/17 1755 Alanine Aminotransferase (ALT/SGPT) 32 U/L 12/21/17 175 Alkaline Phosphatase 140 U/L H 12/21/17 1755 Total Protein 6.3 gm/dl 12/21/17 1755 Albumin 3.2 g/dl L 12/21/17 1755 C-Reactive Protein 6.2 mg/dl H 12/21/17 0000 Lipase 39 U/L 12/21/17 1755 Urine Color Yellow 12/21/17 1635 Urine Clarity Cloudy 12/21/17 1635 Urine pH 5.0 pH 12/21/17 1635 Urine Specific [place] 1.012 12/21/17 1635 Urine Protein Negative mg/dL 12/21/17 1635 Urine Glucose (UA) 500 mg/dL 12/21/17 1635 Urine Ketones Negative mg/dL 12/21/17 1635 Urine Blood Moderate 12/21/17 1635 Urine Nitrite Positive H 12/21/17 1635 Urine Bilirubin Negative 12/21/17 1635 Urine Urobilinogen Negative mg/dL 12/21/17 1635 Urine Leukocyte Esterase Large H 12/21/17 1635 Urine RBC 18 /HPF 12/21/17 1635 Urine WBC 245 /HPF 12/21/17 1635 Urine WBC Clumps Mod /HPF 12/21/17 1635 Urine Squamous Epithelial Cells None /LPF 12/21/17 1635 Urine Bacteria Few /HPF 12/21/17 1635 Urine Mucus None /HPF 12/21/17 1635 Urine Yeast (Budding) Few /HPF H 12/21/17 1635 Urine culture pending. EKG / Imaging Imaging [facility] *LIVE* [address] [place] [address] EDY BURNETT M.D., DIRECTOR OF LABORATORY SERVICES DANIAL NUNEZ M.D., PATHOLOGIST RUN DATE: 12/21/17 Specimen Inquiry Report PAGE 1 RUN TIME: 1141 PATIENT: GEORGE ROYT: [id number] LOC: LAB U : [id number] AGE/SX: 57/M ROOM: REG : 12/19/[address]: LENIN ANTONIO APRN : 1960 BED: DIS : STATUS: REG CLI TLOC: SPEC #: [id number] ЕЛЕНА: 12/19/17 STATUS: RES REQ #: [id number] RECD: 12/19/[address]: LENIN ANTONIO APRN SOFT CRAB SHEDDER-C SOURCE: BLOOD PER ENTR: 12/19/17-[address]: NIC: ORDERED: BCGS, CULT BLOOD COMMENTS: Comments: x2 Procedure Result Verified BLOOD CULTURE GRAM STAIN Final 12/21/17-8850 AEROBIC BOTTLE POSITIVE GRAM POSITIVE COCCI POSITIVE BLOOD CULTURE GRAM STAIN REPORT CALLED TO: DR. OBANDO DATE/TIME REPORT CALLED: 12/21/17 @ 2876 CALLED BY: RAMOS WALLACE BLOOD CULTURE Preliminary 12/21/17-1140 Organism 1 GRAM POSITIVE COCCI GROWTH PRESENT IN THE AEROBIC BOTTLE ID AND SENSITIVITY TO FOLLOW NO GROWTH IN ANAEROBIC BOTTLE AT THIS TIME Pre-Admit Course Medical Record Review: Yes Assessment and Plan Problems: (1) Recurrent bacteremia Status: Chronic Assessment & Plan: The patient was discharged from [facility] to [facility]. Per the medication list from discharge, he was to be on Ancef 2g IV q 8 hours through 12/11/17. He was also on oral Flagy 500mg daily which was to continue through 12/15. He was then to start cefadroxil on 12/11. He did not take his medications as prescribed. One of two blood cultures from an office visit with his PCP on 12/19 are growing a gram positive cocci. Blake Mejia PA-C , talked with a hospitalist at [facility] who had taken care of the patient and recommended restarting the Ancef as his cultures at [facility] showed sensitivity. Will continue Ancef 2g q 8 hours while awaiting culture results. (2) Cellulitis, leg Status: Acute Assessment & Plan: The patient has an acute cellulitis of his L lower leg. Will start Ancef as above and monitor. The patient has had anaphylaxis with Vanco in the past. (3) Elevated INR Status: Acute Assessment & Plan: INR was over 8. Hold Coumadin for now. No active bleeding. Recheck INR in am. (4) Candidal intertrigo Status: Acute Assessment & Plan: Continue Nystatin power bid. (5) Noncompliance Status: Chronic Assessment & Plan: The patient will not likely be able to complete a course of IV antibiotics at home if needed. (6) Hypertension Status: Chronic Assessment & Plan: Continue metoprolol succinate 25mg daily. (7) Chronic pain Status: Chronic Assessment & Plan: Continue MS Contin 15mg bid with oxycodone 20mg prn for breakthrough pain. (8) CAD (coronary artery disease) Status: Chronic Assessment & Plan: Continue metoprolol. Will hold ASA for now due to elevated INR. (9) Chronic indwelling Jackson catheter Status: Chronic Assessment & Plan: Urinalysis shows pyuria. Culture pending. (10) Obesity, morbid, BMI 40.0-49.9 Status: Chronic (11) Hx of deep venous thrombosis Status: Chronic Assessment & Plan: Need to get records from [facility]. Apparently he failed Xarelto therapy and was placed on Coumadin. His INR is currently supratherapeutic. See above. (12) Type 2 diabetes mellitus Status: Chronic Assessment & Plan: Per medication list from [facility] and external med history, the patient is taking Lantus twice daily. Humalog was discontinued per his medication list, but is still present on his PCP's med list. The patient will have someone bring his med list from [facility] for review tomorrow. Time Spent on Plan of Care: < 30 min Copies to: LENIN ANTONIO APRN Venous Thromboembolism Antithrombotics Is Pt On Any Antithrombotics?: Yes Exam Sepsis Risk: Possible Sepsis Risk Problem Qualifiers (1) Cellulitis, leg: Laterality: left Qualified Codes: L03.116 - Cellulitis of left lower limb (2) Hypertension: Hypertension type: essential hypertension Qualified Codes: I10 - Essential ( primary) hypertension JOHN DUQUE MD Dec 21, 2017 22:45 <Electronically signed by JOHN DUQUE MD> D/ [phone] NAMITA/TINO CC: LENIN ANTONIO APRN Patient will be admitted for ongoing antibiotics and rehabilitative therapy. ANTHONY DUQUE MD Dec 25, 2017 16:49
[2017-12-25] MEDS: INSULIN HUM LISPRO 100 UN/ML 3 ML VIAL SUBQ PRN ×2 (17:04→21:30)
[2017-12-25] MEDS: INSULIN GLARGINE 100 U/ML 3 ML PEN SUBQ SCH (21:29)
[2017-12-25] MEDS: AMITRIPTYLINE HCL 25 MG TAB PO SCH (21:29)
[2017-12-25] MEDS: traZODone HCL 50 MG TAB PO SCH (21:29)
[2017-12-25] MEDS: NYSTATIN 100,000 U/GM PWD 15GM TP SCH (21:29)
[2017-12-25] MEDS: PANTOPRAZOLE SOD 40 MG TABEC PO SCH (21:29)
[2017-12-25] MEDS: MORPHINE CR 15 MG TABCR PO SCH (21:29)
[2017-12-25] MEDS: ATORVASTATIN 40 MG TAB PO SCH (21:29)
[2017-12-25] MEDS: GABAPENTIN 300 MG CAP PO SCH (21:29)
[2017-12-25] MEDS: ceFAZolin(*) 2GM/D5W 50ML 50 ML IVPB SCH (21:30)
[2017-12-25] MEDS ORDERED: NS(*) 0.9% 250 ML BAG 250 ML in NS(*) 0.9% 250 ML BAG 250 ML IV PRN (21:55)
[2017-12-25] MEDS: ACETAMINOPHEN 325 MG TAB PO PRN (23:04)
[2017-12-26] MEDS ORDERED: NS(*) 0.9% 250 ML BAG 250 ML ONE (02:13)
[2017-12-26] MEDS: ceFAZolin(*) 2GM/D5W 50ML 50 ML IVPB SCH ×3 (05:51→21:23)
[2017-12-26] MEDS: oxyCODONE HCL 5 MG CAP PO PRN ×4 (05:54→19:25)
[2017-12-26 08:00] VITALS: BP 123/75
[2017-12-26] MEDS: METOPROLOL SUCC XL 25 MG TABCR PO SCH (08:29)
[2017-12-26] MEDS: MAGNESIUM OXIDE 400 MG TAB PO SCH (08:29)
[2017-12-26] MEDS: NYSTATIN 100,000 U/GM PWD 15GM TP SCH ×2 (08:29→20:43)
[2017-12-26] MEDS: GABAPENTIN 300 MG CAP PO SCH ×3 (08:29→20:35)
[2017-12-26] MEDS: MORPHINE CR 15 MG TABCR PO SCH ×2 (08:29→20:35)
[2017-12-26] MEDS: CITALOPRAM HYDROBROM 20 MG TAB PO SCH (08:29)
[2017-12-26] MEDS: DULoxetine HCL 30 MG CAPCR PO SCH (08:29)
[2017-12-26] MEDS: INSULIN HUM LISPRO 100 UN/ML 3 ML VIAL SUBQ PRN ×4 (08:30→20:41)
[2017-12-26] MEDS: INSULIN GLARGINE 100 U/ML 3 ML PEN SUBQ SCH ×2 (08:30→20:40)
[2017-12-26] MEDS ORDERED: OXYGENHOME INH (10:30)
[2017-12-26 12:06] VITALS: Ht 170.2 cm; Wt 138.3 kg
[2017-12-26] MEDS ORDERED: LANI SUBQ (12:19)
--- NOTE | 2017-12-26 12:31 | Medical Nutrition Therapy ---
Nutrition Anthropometrics Height (Inches): 67.00 Height (Calculated Centimeters: 170.478103 Weight (Pounds): 309 Weight (Calculated Kilograms): 140.217 BMI Calculated: 48.39 Delfino Nutrition Score: Adequate Delfino Nutrition Risk Score: 16 Dietary Referral Nutrition Risk Factors: Non-Healing Wound Nutrition Risk Comment: diabetic, ADA diet Physical Findings Physical Appearance: Morbidly Obese 40+ Skin Appearance Skin Appearance: Edema Edema Location Modifier: Edema Location: Type of Edema: Degree of Edema: Gastrointestinal Symptoms GI Symtoms: Nausea, Change in Bowel Pattern Tube Present: Bowel Sounds: Recent Bowel Pattern: Colostomy Stool Characteristics: Nutrition/Food History Non-compliant W/Diet Good Nutritional Diagnosis Nutritional Risk Acuity 2: Abcess/Non-Healing Wound Nutritional Risk Acuity 3: ST I/II Pressure Ulcer Nutritional Risk Acuity 4: Good Appetite Past Medical History: hx abdominal surgery, colostomy, Type IIDM, Indwelling catheter, Frequent UTI, Spina Bifida, GERD, THOMAS, Neurogenic bladder, Syncope, Dizziness, pulmonary embolus, deep venous thrombosis, small bowel obstruction Nutritional Acuity: 2-Moderate Nutrition Diagnosis: Over-weight/Obesity, Inappropriate Carb Intake Nutrition Etiology: Unwilling to Apply NutrEd, Inappropriate Food Choice Nutrition Problem/Etiology/Sym: Inconsistent Carbohydrate Intake related to food and nutrition compliance limitations, e.g., lack of willingness AEB hyperglycemia documented on regular basis. Overweight/Obesity related to Excessive energy intake and Physical inactivity AEB BMI of 48.4 and physical limitations. Energy Requirement: 2400 ([place] Adjusted BW X 1.4) Protein Requirement: 74 (IBW X 1.0) Fluid Requirement: 2400 Nutrition Intervention: Cont diet as ordered Drug: Warfarin Food Likes: Bowl of cottage cheese with every meal Food Dislikes: eggs! Do Not Serve Any of the Follow: Broccoli, Brussel Sprouts, Spinach, [place] Lettuce, Cranberry Juice Diet Comment To RSA: GIVE UP TO 75GM CARB/MEAL LET PT HAVE LG NON-STARCHY VEG PLATE- COUNT 0 GM CARB Nutrition Monitoring & Eval Nutrition Goals: Eat 50-100% Meal RD Patient Assessment Time: [address] Assessment Type: RD Assessment Patient Nutrition Acuity: 2-Moderate Follow Up Date: Jan 02, 2018 Nutritional Comment: Pt transferred to [facility] with recurrent bacteremia and Lower Left Leg Cellulites. Class III obesity with BMI of 48.4. Most recent labs: Alb 2.6, Glu 218, CRP 5.7. Lantus 60u q am, Lispro SSI. Receiving diabetic diet and consuming 100% of meals. Has received diet education in the past and knowlegible on diabetic diet but does admit to non-complience at home. Monitor and encourage healthy intake. KATLIN GILLETTE Dec 26, 2017 12:31
[2017-12-26] MEDS: ACETAMINOPHEN 325 MG TAB PO PRN (13:24)
[2017-12-26] MEDS: WARFARIN SOD 4 MG TAB PO SCH (13:24)
[2017-12-26 15:50] VITALS: BP 163/90
--- NOTE | 2017-12-26 17:08 | OT ECF NOTE ---
Type of Note: Initial Note Primary Medical Diagnosis: IV antibiotics s/p hospital admission for cellulitis (leg), elevated INR, bacteremia Occupational Therapy Evaluation Date: 12/26/17 SUBJECTIVE: Prior Hospitalization: [facility] 12/21/17 thru 12/25/17 Prior Level of Function: Prior to admission, pt was receiving assist for all ADLs/IADLs. His spouse assists with bathing 1x/week, dressing daily and all IADLs. He also received HH PT and MANAGED SERVICES SALES CONSULTANT assist 3x/week. Pt reports he completes all toileting from his recliner and ambulates short distances in his home with a RW. Prior Living Status: Senior housing Spouse Assist by family Community Services: Support adequate Home health care Meals on Wheels No known needs Home Accessibility: All needs on one level Walk-in shower Equipment Owned: Front wheeled walker Wheelchair Medical Complications/Past Medical History: Recurrent bacteremia, HTN, chronic pain, CAD, chronic indwelling catheter, morbid obesity, hx DVT, Type 2 DM Psychosocial Support: Supportive spouse and family in [place] Pain Scale (0-10): Reporting significant pain "all over." No numerical rating. Pain medication provided prior to evaluation. OBJECTIVE: Strength: MMT: Right Left Shoulder Flexion WFL WFL Elbow Flexion WFL WFL Wrist Extension WFL WFL Fraud Examiner WFL WFL (5= normal, 4= good, 3= fair, 2= poor, 1= trace) ROM: WFL Functional Transfer: Assistive Device: Front wheeled walker Transfer Ability: SBA. Ambulation x20ft prior to pt declining to ambulate further ADL: Upper body dressing: Assistive device: Upper body dressing ability: Set-up A Lower body dressing: Assistive device: Lower body dressing ability: Pt reports he does not wear LB clothing when home and spouse is present to assist with LB dressing when necessary. Toileting: Assistive device: None Toileting ability: Pt reports he completes all toileting from w/c or recliner. Grooming/hygiene: Assistive device: Seated Grooming ability: Set-up Bathing: Assistive device: Bathing ability: N/T. Pt's spouse assists with shower 1 day per week ASSESSMENT: Rodrigue presents to [facility] for IV antibiotics s/p hospital admission. He has extensive assist for all ADLs/IADLs at home. He demonstrates good tolerance for mobility and will continue to be skilled by PT services during time on ECF. Rodrigue reports no need for skilled OT services at this time. Pt encouraged to notify staff if he feels this need changes. No skilled OT services at this time. Recommend pt discharge home with prior services when medically appropriate. Thank you for this referral. If you have any questions, concerns, or comments about this report or plan, please contact me at . Christine Green MS, OTR/L Occupational Therapist [facility]
[2017-12-26] MEDS: traZODone HCL 50 MG TAB PO SCH (20:35)
[2017-12-26] MEDS: AMITRIPTYLINE HCL 25 MG TAB PO SCH (20:35)
[2017-12-26] MEDS: ATORVASTATIN 40 MG TAB PO SCH (20:35)
[2017-12-26] MEDS: PANTOPRAZOLE SOD 40 MG TABEC PO SCH (20:36)
[2017-12-27] MEDS: ceFAZolin(*) 2GM/D5W 50ML 50 ML IVPB SCH ×3 (05:43→21:40)
[2017-12-27 06:42] LABS: PLATELET COUNT, AUTOMATED 276 K/uL (150-450)
[2017-12-27 06:52] LABS: INR 1.6
[2017-12-27 07:30] VITALS: BP 136/82
[2017-12-27] MEDS: CITALOPRAM HYDROBROM 20 MG TAB PO SCH (08:32)
[2017-12-27] MEDS: METOPROLOL SUCC XL 25 MG TABCR PO SCH (08:32)
[2017-12-27] MEDS: MAGNESIUM OXIDE 400 MG TAB PO SCH (08:32)
[2017-12-27] MEDS: DULoxetine HCL 30 MG CAPCR PO SCH (08:32)
[2017-12-27] MEDS: MORPHINE CR 15 MG TABCR PO SCH ×2 (08:33→20:58)
[2017-12-27] MEDS: oxyCODONE HCL 5 MG CAP PO PRN ×4 (08:33→21:40)
[2017-12-27] MEDS: INSULIN GLARGINE 100 U/ML 3 ML PEN SUBQ SCH ×2 (08:33→20:58)
[2017-12-27] MEDS: GABAPENTIN 300 MG CAP PO SCH ×3 (08:33→20:58)
[2017-12-27] MEDS: INSULIN HUM LISPRO 100 UN/ML 3 ML VIAL SUBQ PRN ×4 (08:34→20:57)
--- NOTE | 2017-12-27 08:38 | PT ECF NOTE ---
Type of Note: Initial Note Primary Medical Diagnosis: Recurrent Bacteremia Physical Therapy Evaluation Date: 12/26/17 SUBJECTIVE: Prior Hospitalization: Extensive history, please see H&P for details. Multiple admissions to rehab hospitals recently. Prior Level of Function: Pt resides with his in senior housing. Pt utilizes a RW for transfers and ambulation within the apartment and a wheelchair for community distances. Pt is able to perform bed mobility and transfers without assistance. Pt reports ambulation distance at 150-180' in the hallways with his home health care PT. Pt currently does not utilize a cushion in his wheelchair or recliner where he spends most of his time. Prior Living Status: Senior housing, Spouse, Assist by family Community Services: Support adequate, Home health care, Meals on Wheels, No known additional needs Home Accessibility: Elevator, All needs on one level, Walk-in shower Equipment Owned: Front wheeled walker, Wheelchair Medical Complications/Past Medical History: Extensive, please see [employer]. Spina bifida with decreased LE strength and sensation. Psychosocial Support: Pt has supportive , family, and home health care Pain Scale (0-10): Pt reports chronic pain. OBJECTIVE: Strength: Right Lower Extremity: grossly 4/5 throughout Left Lower Extremity: grossly 4/5 throughout ROM: (please note any abnormalities) decreased B ankle and foot ROM Sensation: (please note any abnormalities) Decreased sensation in B LEs and buttocks Bed Mobility: not observed during PT eval. Transfers: CGA from chair Assistive Device: Front wheeled walker Gait: CGA x25' Assistive device: Front wheeled walker Integumentary system: Approx. quarter sized stage II ulceration L ischial tuberosity not requiring skilled debridement. ASSESSMENT: Pt presents with decreased independence with functional mobility compared to baseline. Pt will benefit from skilled PT for functional mobility training and education/reinforcement regarding appropriate weight shifting and use of appropriate wheelchair cushion. Problem List/Current Limitations: Pain, Decreased strength, Decreased balance, Generalized weakness Short Term Goals: 1. SBA bed mobility. 2. SBA transfers. 3. Ambulation x 50' with RW. 4. Pt demonstrate understanding of appropriate weight shifting in bed and chair. Residential Goals: Return home. Patient Goals: Return home. Rehabilitation Prognosis: Fair Barriers for Discharge: Multiple medical problems and decreased initiation of self-care demonstrated in the past. PLAN: The patient will benefit from skilled physical therapy services 5 times per week for 2 weeks including: Therapeutic Exercise, Therapeutic Activities, Transfer Training, Gait Training, ADL's, Safety Training, Neuromuscular Re-educ. , Wound Care, Pt/Caregiver Training, Bed Mobility Thank you for this referral. If you have any questions, concerns, or comments about this report or plan, please contact me at . Puja Gonzalez, PT, DPT, GCS MTDD
[2017-12-27] MEDS: NYSTATIN 100,000 U/GM PWD 15GM TP SCH ×2 (09:00→20:57)
[2017-12-27] MEDS: WARFARIN SOD 4 MG TAB PO SCH (13:30)
[2017-12-27] MEDS ORDERED: [UNRECOGNIZED DRUG - CODE] PO (15:30)
--- NOTE | 2017-12-27 15:35 | Hospitalist Progress Note ---
Subjective Progress Notes Subjective No new complaints. Sugars are still high. Physical Exam Vital Signs Date Time Temp Pulse Resp B/P (MAP) Pulse Ox O2 Delivery O2 Flow Rate FiO2 12/27/17 10:00 90 Nasal Cannula 2.0 12/27/17 07:30 98.2 114 20 136/82 (100) Intake and Output 12/28/17 07:00 Intake Total 599 ml Output Total 1600 ml Balance -1001 ml Intake Oral 520 ml IV Total 79 ml Output Urine Total 1600 ml General Appearance: Alert, Awake, No Acute Distress, Afebrile Neuro: No Gross deficits Eyes: PERRLA Cardiovascular: Regular Rate and Rhythm Respiratory: Clear to Auscultation GI: Soft and Non-Tender Extremities: Warm, Perfused Psych: Appropriate Mood & Affect Result Diagram: 12/27/1760912/27/17609 Assessment and Plan Problems: (1) Recurrent bacteremia Status: Chronic Assessment & Plan: The patient was discharged from [facility] to [facility]. Per the medication list from discharge, he was to be on Ancef 2gm IV q 8 hours through 12/11/17. He was also on oral Flagyl 500mg daily which was to continue through 12/15. He was then to start Duricef on 12/11. He did not take his IV medications as prescribed - admitting he usually only did two of the three daily doses. One of two blood cultures from an office visit with his PCP on 12/19 grew methicillin sensitive Staphylococcus. He had been having fever at home prior to this. I talked with Dr. Brady at [facility] and he recommended completing a 6 week course of Ancef and then placing him on lifelong oral Duricef 500mg bid. (2) Cellulitis, leg Status: Acute Assessment & Plan: Resolved on Ancef. (3) Elevated INR Status: Acute Assessment & Plan: His INR was elevated on admission on a dose of 4mg 6d/wk and 8mg 1d/wk. He never did receive Vitamin K. His warfarin was held and his INR trended down. He was restarted at 4mg daily but his INR has now trended below 2. Will bridge with Lovenox. (4) Candidal intertrigo Status: Acute Assessment & Plan: Nystatin has been ordered. (5) Noncompliance Status: Chronic Assessment & Plan: The patient was sent home from [facility] with orders to complete a 6 week course of Ancef. He did not take that medication as prescribed. He will need to complete a 6 week course of IV Ancef on ECF prior to switching to oral (6) Hypertension Status: Chronic Assessment & Plan: Continue metoprolol. (7) Chronic pain Status: Chronic Assessment & Plan: Continue MS Contin and oxycodone. (8) CAD (coronary artery disease) Status: Chronic Assessment & Plan: He is on chronic treatment with aspirin, which was held secondary to an elevated INR. This has been restarted. (9) Chronic indwelling Muñoz catheter Status: Chronic Assessment & Plan: His urine culture grew Citrobacter, but this is not felt to be clinically relevant since he is chronically colonized and not having urinary symptoms. (10) Obesity, morbid, BMI 40.0-49.9 Status: Chronic (11) Hx of deep venous thrombosis Status: Chronic (12) Septic pulmonary embolism Status: Resolved Assessment & Plan: The patient was treated for septic pulmonary emboli during one of his recent stays at [facility]. His INR is now < 2. Will bridge with Lovenox. (13) Type 2 diabetes mellitus Status: Chronic Assessment & Plan: He is on chronic treatment with Lantus. We are also covering him with sliding scale level #2. I will increase his Lantus today. (14) Decubitus ulcer Status: Acute Assessment & Plan: Physical therapy is consulted for wound care. Time Spent on Plan of Care: < 30 min JOHN DUQUE MD Dec 27, 2017 15:35
[2017-12-27 16:10] VITALS: BP 132/80
--- NOTE | 2017-12-27 16:23 | Consultant Pharmacy Review ---
It Systems Analyst Consultant Review Medication Review Do All Mecications have a Diag: Yes Other General Cautions Lexicomp Interaction Analysis A = No known interaction C = Monitor therapy X = Avoid combination B = No action needed D = Consider therapy modification Drugs in this analysis: Acetaminophen; Amitriptyline; CeFAZolin; CeleXA; Cymbalta; Ditropan XL; HumaLOG; Lantus; Lipitor; Magnesium Oxide; MS Contin; Neurontin; Nystop; Pantoprazole; Phenergan; Toprol XL; TraZODone; Warfarin * Drug-Drug Interactions D Amitriptyline (SWITCHMAN SUPERVISOR Depressants) MS Contin (Opioid Analgesics) D Amitriptyline (Tricyclic Antidepressants) CeleXA (Citalopram) D CeleXA (QTc-Prolonging Agents (Highest Risk)) TraZODone (QTc-Prolonging Agents (Indeterminate Risk and Risk Modifying)) D CeleXA (Selective Serotonin Reuptake Inhibitors) TraZODone (Serotonin Reuptake Inhibitor/Antagonists) D Cymbalta (CYP2D6 Inhibitors) Toprol XL (Metoprolol) D Magnesium Oxide (Magnesium Salts) Neurontin (Gabapentin) Depends on Route D MS Contin (Opioid Analgesics) Phenergan (SWITCHMAN SUPERVISOR Depressants) C Acetaminophen Warfarin (Vitamin K Antagonists) Depends on Dose C Amitriptyline (Anticholinergic Agents) Ditropan XL (Anticholinergic Agents) C Amitriptyline (Anticholinergic Agents) Phenergan (Anticholinergic Agents) C Amitriptyline (SWITCHMAN SUPERVISOR Depressants) Neurontin (SWITCHMAN SUPERVISOR Depressants) C Amitriptyline (SWITCHMAN SUPERVISOR Depressants) Phenergan (SWITCHMAN SUPERVISOR Depressants) C Amitriptyline (Serotonin Modulators) Phenergan (Serotonin Modulators) C Amitriptyline (Serotonin Modulators) TraZODone (Serotonin Modulators) C Amitriptyline (Tricyclic Antidepressants) Cymbalta (DULoxetine) C Amitriptyline (Tricyclic Antidepressants) Warfarin (Vitamin K Antagonists) C CeFAZolin (Cephalosporins) Warfarin (Vitamin K Antagonists) C CeleXA (Agents with Antiplatelet Properties) Cymbalta (Agents with Antiplatelet Properties) Depends on International labeling C CeleXA (Agents with Antiplatelet Properties) Warfarin (Anticoagulants) Depends on International labeling C CeleXA (Selective Serotonin Reuptake Inhibitors) HumaLOG (Blood Glucose Lowering Agents) C CeleXA (Selective Serotonin Reuptake Inhibitors) Lantus (Blood Glucose Lowering Agents) C CeleXA (Selective Serotonin Reuptake Inhibitors) MS Contin (SWITCHMAN SUPERVISOR Depressants ) C CeleXA (Selective Serotonin Reuptake Inhibitors) Neurontin (SWITCHMAN SUPERVISOR Depressants ) C CeleXA (Selective Serotonin Reuptake Inhibitors) Phenergan (SWITCHMAN SUPERVISOR Depressants ) C CeleXA (Selective Serotonin Reuptake Inhibitors) Warfarin (Vitamin K Antagonists) C CeleXA (Serotonin Modulators) Cymbalta (Serotonin Modulators) C CeleXA (Serotonin Modulators) MS Contin (Opioid Analgesics) C CeleXA (Serotonin Modulators) Phenergan (Serotonin Modulators) C Cymbalta (DULoxetine) MS Contin (Blood Pressure Lowering Agents) C Cymbalta (DULoxetine) Warfarin (Vitamin K Antagonists) C Cymbalta (Serotonin Modulators) Phenergan (Serotonin Modulators) C Cymbalta (Serotonin Modulators) TraZODone (Serotonin Modulators) C Ditropan XL (Anticholinergic Agents) MS Contin (Opioid Analgesics) C Ditropan XL (Anticholinergic Agents) Phenergan (Anticholinergic Agents) C HumaLOG (Hypoglycemia-Associated Agents) Lantus (Antidiabetic Agents) C HumaLOG (Hypoglycemia-Associated Agents) Lantus (Hypoglycemia-Associated Agents) C HumaLOG (Insulins) Toprol XL (Beta-Blockers) C Lantus (Insulins) Toprol XL (Beta-Blockers) C MS Contin (Hypotension-Associated Agents) Toprol XL (Blood Pressure Lowering Agents) C MS Contin (Morphine (Systemic)) Neurontin (Gabapentin) C MS Contin (Opioid Analgesics) TraZODone (Serotonin Modulators) C Neurontin (SWITCHMAN SUPERVISOR Depressants) Phenergan (SWITCHMAN SUPERVISOR Depressants) C Phenergan (Serotonin Modulators) TraZODone (Serotonin Modulators) C TraZODone Warfarin B Acetaminophen MS Contin (Opioid Analgesics) B Pantoprazole Warfarin (Vitamin K Antagonists) A Lipitor (AtorvaSTATin) Warfarin (Vitamin K Antagonists) DUPLICATE THERAPY: Amitriptyline CeleXA Amitriptyline Cymbalta Amitriptyline TraZODone CeleXA Cymbalta CeleXA TraZODone Cymbalta TraZODone Pneumococcal Vaccine HX Pneumo Vac ([id number]): No (Never, refuses) HX Pneumo Vac (Pneumovax): No (Never, refuses) Comments Regarding the Review Beers criteria does not apply due to patient's age. Patient refuses vaccinations at this time. Patient is on both a SSRI and an SNRI and trazosone so monitor for serotonin syndrome. Also amitriptyline can increase levels of Celexa and increase potential for QT prolongation especially since patient is also on trazodone. JENNIFER LYLES Dec 27, 2017 16:23
[2017-12-27] MEDS: ENOXAPARIN SC SCH (20:57)
[2017-12-27] MEDS: PANTOPRAZOLE SOD 40 MG TABEC PO SCH (20:57)
[2017-12-27] MEDS: traZODone HCL 50 MG TAB PO SCH (20:58)
[2017-12-27] MEDS: ATORVASTATIN 40 MG TAB PO SCH (20:58)
[2017-12-27] MEDS: AMITRIPTYLINE HCL 25 MG TAB PO SCH (20:58)
[2017-12-27] MEDS ORDERED: ENOXAPARIN 100 MG/ML SYR SC SCH (21:00)
[2017-12-28] MEDS: oxyCODONE HCL 5 MG CAP PO PRN ×4 (02:31→20:32)
[2017-12-28] MEDS: ceFAZolin(*) 2GM/D5W 50ML 50 ML IVPB SCH ×3 (05:27→21:38)
[2017-12-28 06:22] LABS: INR 1.8
[2017-12-28 08:00] VITALS: BP 128/74
[2017-12-28] MEDS: ENOXAPARIN SC SCH ×2 (08:42→20:29)
[2017-12-28] MEDS: GABAPENTIN 300 MG CAP PO SCH ×3 (08:42→20:29)
[2017-12-28] MEDS: DULoxetine HCL 30 MG CAPCR PO SCH (08:42)
[2017-12-28] MEDS: FUROSEMIDE 40 MG TAB PO SCH (08:42)
[2017-12-28] MEDS: ASPIRIN 81 MG ENTERIC COATED PO SCH (08:42)
[2017-12-28] MEDS: CITALOPRAM HYDROBROM 20 MG TAB PO SCH (08:42)
[2017-12-28] MEDS: METOPROLOL SUCC XL 25 MG TABCR PO SCH (08:42)
[2017-12-28] MEDS: MORPHINE CR 15 MG TABCR PO SCH ×2 (08:42→20:29)
[2017-12-28] MEDS: MAGNESIUM OXIDE 400 MG TAB PO SCH (08:42)
[2017-12-28] MEDS: INSULIN HUM LISPRO 100 UN/ML 3 ML VIAL SUBQ PRN ×3 (08:47→16:41)
[2017-12-28] MEDS: INSULIN GLARGINE 100 U/ML 3 ML PEN SUBQ SCH ×2 (08:48→20:29)
[2017-12-28] MEDS: NYSTATIN 100,000 U/GM PWD 15GM TP SCH ×2 (09:00→20:29)
[2017-12-28] MEDS: ACETAMINOPHEN 325 MG TAB PO PRN (12:20)
[2017-12-28] MEDS: WARFARIN SOD 4 MG TAB PO SCH (13:36)
[2017-12-28 15:30] VITALS: BP 110/68
[2017-12-28] MEDS: traZODone HCL 50 MG TAB PO SCH (20:29)
[2017-12-28] MEDS: PANTOPRAZOLE SOD 40 MG TABEC PO SCH (20:29)
[2017-12-28] MEDS: AMITRIPTYLINE HCL 25 MG TAB PO SCH (20:29)
[2017-12-28] MEDS: ATORVASTATIN 40 MG TAB PO SCH (20:29)
[2017-12-29] MEDS: ACETAMINOPHEN 325 MG TAB PO PRN ×3 (00:15→20:40)
[2017-12-29] MEDS: oxyCODONE HCL 5 MG CAP PO PRN ×5 (00:32→23:29)
[2017-12-29] MEDS: ceFAZolin(*) 2GM/D5W 50ML 50 ML IVPB SCH ×3 (05:24→21:38)
[2017-12-29 07:19] LABS: INR 1.94
[2017-12-29 08:00] VITALS: BP 123/72
[2017-12-29] MEDS: ENOXAPARIN SC SCH ×2 (09:05→20:39)
[2017-12-29] MEDS: METOPROLOL SUCC XL 25 MG TABCR PO SCH (09:06)
[2017-12-29] MEDS: MAGNESIUM OXIDE 400 MG TAB PO SCH (09:06)
[2017-12-29] MEDS: CITALOPRAM HYDROBROM 20 MG TAB PO SCH (09:06)
[2017-12-29] MEDS: ASPIRIN 81 MG ENTERIC COATED PO SCH (09:06)
[2017-12-29] MEDS: DULoxetine HCL 30 MG CAPCR PO SCH (09:06)
[2017-12-29] MEDS: GABAPENTIN 300 MG CAP PO SCH ×3 (09:06→20:39)
[2017-12-29] MEDS: FUROSEMIDE 40 MG TAB PO SCH (09:06)
[2017-12-29] MEDS: MORPHINE CR 15 MG TABCR PO SCH ×2 (09:06→20:40)
[2017-12-29] MEDS: INSULIN GLARGINE 100 U/ML 3 ML PEN SUBQ SCH ×2 (09:07→20:44)
[2017-12-29] MEDS: INSULIN HUM LISPRO 100 UN/ML 3 ML VIAL SUBQ PRN ×4 (09:07→20:44)
[2017-12-29] MEDS: NYSTATIN 100,000 U/GM PWD 15GM TP SCH ×2 (10:00→20:38)
[2017-12-29] MEDS: WARFARIN SOD 4 MG TAB PO SCH (13:41)
[2017-12-29 17:00] VITALS: BP 118/68
[2017-12-29] MEDS: PANTOPRAZOLE SOD 40 MG TABEC PO SCH (20:39)
[2017-12-29] MEDS: AMITRIPTYLINE HCL 25 MG TAB PO SCH (20:39)
[2017-12-29] MEDS: traZODone HCL 50 MG TAB PO SCH (20:39)
[2017-12-29] MEDS: ATORVASTATIN 40 MG TAB PO SCH (20:40)
[2017-12-30] MEDS: oxyCODONE HCL 5 MG CAP PO PRN ×4 (06:28→21:42)
[2017-12-30] MEDS: ceFAZolin(*) 2GM/D5W 50ML 50 ML IVPB SCH ×3 (06:29→21:43)
[2017-12-30 07:43] LABS: INR 1.8
[2017-12-30 08:10] VITALS: BP 118/68
[2017-12-30] MEDS: NYSTATIN 100,000 U/GM PWD 15GM TP SCH ×2 (09:00→21:03)
[2017-12-30] MEDS: ENOXAPARIN SC SCH ×2 (09:17→21:03)
[2017-12-30] MEDS: MAGNESIUM OXIDE 400 MG TAB PO SCH (09:17)
[2017-12-30] MEDS: GABAPENTIN 300 MG CAP PO SCH ×3 (09:18→21:02)
[2017-12-30] MEDS: METOPROLOL SUCC XL 25 MG TABCR PO SCH (09:18)
[2017-12-30] MEDS: DULoxetine HCL 30 MG CAPCR PO SCH (09:18)
[2017-12-30] MEDS: MORPHINE CR 15 MG TABCR PO SCH ×2 (09:18→21:02)
[2017-12-30] MEDS: ASPIRIN 81 MG ENTERIC COATED PO SCH (09:18)
[2017-12-30] MEDS: FUROSEMIDE 40 MG TAB PO SCH (09:18)
[2017-12-30] MEDS: CITALOPRAM HYDROBROM 20 MG TAB PO SCH (09:18)
[2017-12-30] MEDS: INSULIN GLARGINE 100 U/ML 3 ML PEN SUBQ SCH ×2 (09:18→21:03)
[2017-12-30] MEDS: ACETAMINOPHEN 325 MG TAB PO PRN (11:16)
[2017-12-30] MEDS: INSULIN HUM LISPRO 100 UN/ML 3 ML VIAL SUBQ PRN ×3 (12:53→21:04)
[2017-12-30] MEDS: WARFARIN SOD 4 MG TAB PO SCH (13:39)
[2017-12-30 17:15] VITALS: BP 118/69
[2017-12-30] MEDS: traZODone HCL 50 MG TAB PO SCH (21:02)
[2017-12-30] MEDS: ATORVASTATIN 40 MG TAB PO SCH (21:02)
[2017-12-30] MEDS: PANTOPRAZOLE SOD 40 MG TABEC PO SCH (21:02)
[2017-12-30] MEDS: AMITRIPTYLINE HCL 25 MG TAB PO SCH (21:02)
[2017-12-31] MEDS: oxyCODONE HCL 5 MG CAP PO PRN ×4 (04:34→21:23)
[2017-12-31] MEDS: ceFAZolin(*) 2GM/D5W 50ML 50 ML IVPB SCH ×3 (05:28→21:24)
[2017-12-31] MEDS: ACETAMINOPHEN 325 MG TAB PO PRN ×2 (06:25→14:35)
[2017-12-31 07:39] LABS: INR 1.81
[2017-12-31 08:05] VITALS: BP 109/66
[2017-12-31] MEDS: CITALOPRAM HYDROBROM 20 MG TAB PO SCH (08:24)
[2017-12-31] MEDS: ASPIRIN 81 MG ENTERIC COATED PO SCH (08:24)
[2017-12-31] MEDS: MAGNESIUM OXIDE 400 MG TAB PO SCH (08:24)
[2017-12-31] MEDS: DULoxetine HCL 30 MG CAPCR PO SCH (08:24)
[2017-12-31] MEDS: FUROSEMIDE 40 MG TAB PO SCH (08:24)
[2017-12-31] MEDS: GABAPENTIN 300 MG CAP PO SCH ×3 (08:24→20:50)
[2017-12-31] MEDS: METOPROLOL SUCC XL 25 MG TABCR PO SCH (08:24)
[2017-12-31] MEDS: MORPHINE CR 15 MG TABCR PO SCH ×2 (08:24→20:50)
[2017-12-31] MEDS: NYSTATIN 100,000 U/GM PWD 15GM TP SCH ×2 (08:25→20:50)
[2017-12-31] MEDS: ENOXAPARIN SC SCH ×2 (08:25→20:49)
[2017-12-31] MEDS: INSULIN GLARGINE 100 U/ML 3 ML PEN SUBQ SCH ×2 (08:26→20:51)
[2017-12-31] MEDS: WARFARIN SOD 4 MG TAB PO SCH (12:18)
[2017-12-31 16:52] VITALS: BP 118/67
[2017-12-31] MEDS: INSULIN HUM LISPRO 100 UN/ML 3 ML VIAL SUBQ PRN ×2 (17:03→20:51)
[2017-12-31] MEDS: ATORVASTATIN 40 MG TAB PO SCH (20:50)
[2017-12-31] MEDS: traZODone HCL 50 MG TAB PO SCH (20:50)
[2017-12-31] MEDS: AMITRIPTYLINE HCL 25 MG TAB PO SCH (20:50)
[2017-12-31] MEDS: PANTOPRAZOLE SOD 40 MG TABEC PO SCH (20:50)
[2018-01-01] MEDS: oxyCODONE HCL 5 MG CAP PO PRN ×5 (05:36→22:25)
[2018-01-01] MEDS: ceFAZolin(*) 2GM/D5W 50ML 50 ML IVPB SCH ×3 (05:36→22:25)
[2018-01-01 06:43] LABS: PLATELET COUNT, AUTOMATED 298 K/uL (150-450)
[2018-01-01 07:30] VITALS: BP 118/65
[2018-01-01 07:33] LABS: INR 1.89
[2018-01-01] MEDS: ACETAMINOPHEN 325 MG TAB PO PRN ×2 (08:46→16:34)
[2018-01-01] MEDS: ENOXAPARIN SC SCH ×2 (08:47→21:00)
[2018-01-01] MEDS: DULoxetine HCL 30 MG CAPCR PO SCH (08:48)
[2018-01-01] MEDS: NYSTATIN 100,000 U/GM PWD 15GM TP SCH ×2 (08:48→21:00)
[2018-01-01] MEDS: ASPIRIN 81 MG ENTERIC COATED PO SCH (08:48)
[2018-01-01] MEDS: INSULIN GLARGINE 100 U/ML 3 ML PEN SUBQ SCH ×2 (08:48→21:00)
[2018-01-01] MEDS: CITALOPRAM HYDROBROM 20 MG TAB PO SCH (08:48)
[2018-01-01] MEDS: METOPROLOL SUCC XL 25 MG TABCR PO SCH (08:48)
[2018-01-01] MEDS: MAGNESIUM OXIDE 400 MG TAB PO SCH (08:48)
[2018-01-01] MEDS: GABAPENTIN 300 MG CAP PO SCH ×3 (08:48→20:59)
[2018-01-01] MEDS: FUROSEMIDE 40 MG TAB PO SCH (08:48)
[2018-01-01] MEDS: MORPHINE CR 15 MG TABCR PO SCH ×2 (08:48→20:59)
[2018-01-01] MEDS: INSULIN HUM LISPRO 100 UN/ML 3 ML VIAL SUBQ PRN ×4 (08:49→21:01)
[2018-01-01] MEDS: WARFARIN SOD 4 MG TAB PO SCH (12:36)
--- NOTE | 2018-01-01 16:04 | Medical Nutrition Therapy ---
Nutrition Anthropometrics Height (Inches): 67.00 Height (Calculated Centimeters: 170.685039 Weight (Pounds): 308 Weight (Calculated Kilograms): 140.018 BMI Calculated: 48.39 Delfino Nutrition Score: Adequate Delfino Nutrition Risk Score: 16 Dietary Referral Nutrition Risk Factors: Non-Healing Wound Nutrition Risk Comment: diabetic, ADA diet Physical Findings Physical Appearance: Morbidly Obese 40+ Skin Appearance Skin Appearance: Edema Edema Location Modifier: Edema Location: Type of Edema: Degree of Edema: Gastrointestinal Symptoms GI Symtoms: Change in Bowel Pattern Tube Present: Bowel Sounds: Recent Bowel Pattern: Colostomy Stool Characteristics: Nutritional Diagnosis Nutritional Risk Acuity 2: Abcess/Non-Healing Wound Nutritional Risk Acuity 3: ST I/II Pressure Ulcer Nutritional Risk Acuity 4: Good Appetite Past Medical History: hx abdominal surgery, colostomy, Type IIDM, Indwelling catheter, Frequent UTI, Spina Bifida, GERD, THOMAS, Neurogenic bladder, Syncope, Dizziness, pulmonary embolus, deep venous thrombosis, small bowel obstruction Nutritional Acuity: 2-Moderate Nutrition Diagnosis: Over-weight/Obesity, Inappropriate Carb Intake Nutrition Etiology: Unwilling to Apply NutrEd, Inappropriate Food Choice Nutrition Problem/Etiology/Sym: Inconsistent Carbohydrate Intake related to food and nutrition compliance limitations, e.g., lack of willingness AEB hyperglycemia documented on regular basis. Overweight/Obesity related to Excessive energy intake and Physical inactivity AEB BMI of 48.4 and physical limitations. Energy Requirement: 2400 ([place] Adjusted BW X 1.4) Protein Requirement: 74 (IBW X 1.0) Fluid Requirement: 2400 Nutrition Intervention: Cont diet as ordered Drug: Warfarin Food Likes: Pt would like a pitcher of tea with breakfast meals Food Dislikes: eggs! Do Not Serve Any of the Follow: Broccoli, Brussel Sprouts, Spinach, [place] Lettuce, Cranberry Juice Diet Comment To RSA: GIVE UP TO 75GM CARB/MEAL LET PT HAVE LG NON-STARCHY VEG PLATE- COUNT 0 GM CARB Nutrition Monitoring & Eval Nutrition Goals: Eat 75-100% Meal Nutrition Follow-Up: Good Intake RD Patient Assessment Time: [address] Assessment Type: RD Re-Assessment Patient Nutrition Acuity: 2-Moderate Follow Up Date: Jan 09, 2018 Nutritional Comment: Pt transferred to [facility] with recurrent bacteremia and Lower Left Leg Cellulites. Class III obesity with BMI of 48.4. Most recent labs: Alb 2.6, Glu 218, CRP 5.7. Lantus 60u q am, Lispro SSI. Receiving diabetic diet and consuming 100% of meals. Has received diet education in the past and knowlegible on diabetic diet but does admit to non-complience at home. Monitor and encourage healthy intake. 01/01 Pt cont on ADA diet, eating 100% of meals. BG cont in 200's. Wt is stable. Will cont to monitor and encourage intake. JOCELYN SMYTH Jan 01, 2018 16:04
[2018-01-01 16:35] VITALS: BP 129/80
[2018-01-01] MEDS: traZODone HCL 50 MG TAB PO SCH (20:59)
[2018-01-01] MEDS: ATORVASTATIN 40 MG TAB PO SCH (20:59)
[2018-01-01] MEDS: AMITRIPTYLINE HCL 25 MG TAB PO SCH (21:00)
[2018-01-01] MEDS: PANTOPRAZOLE SOD 40 MG TABEC PO SCH (21:00)
[2018-01-02] MEDS: oxyCODONE HCL 5 MG CAP PO PRN ×4 (04:28→20:55)
[2018-01-02] MEDS: ceFAZolin(*) 2GM/D5W 50ML 50 ML IVPB SCH ×3 (05:54→20:56)
[2018-01-02 06:18] LABS: INR 1.75
[2018-01-02 07:43] VITALS: BP 100/61
[2018-01-02] MEDS: MORPHINE CR 15 MG TABCR PO SCH ×2 (08:39→20:55)
[2018-01-02] MEDS: DULoxetine HCL 30 MG CAPCR PO SCH (08:39)
[2018-01-02] MEDS: MAGNESIUM OXIDE 400 MG TAB PO SCH (08:39)
[2018-01-02] MEDS: ENOXAPARIN SC SCH ×2 (08:39→20:55)
[2018-01-02] MEDS: GABAPENTIN 300 MG CAP PO SCH ×3 (08:40→20:55)
[2018-01-02] MEDS: METOPROLOL SUCC XL 25 MG TABCR PO SCH (08:40)
[2018-01-02] MEDS: NYSTATIN 100,000 U/GM PWD 15GM TP SCH ×2 (08:40→20:51)
[2018-01-02] MEDS: ASPIRIN 81 MG ENTERIC COATED PO SCH (08:40)
[2018-01-02] MEDS: FUROSEMIDE 40 MG TAB PO SCH (08:40)
[2018-01-02] MEDS: CITALOPRAM HYDROBROM 20 MG TAB PO SCH (08:40)
[2018-01-02] MEDS: INSULIN HUM LISPRO 100 UN/ML 3 ML VIAL SUBQ PRN ×4 (08:41→20:55)
[2018-01-02] MEDS: INSULIN GLARGINE 100 U/ML 3 ML PEN SUBQ SCH ×2 (08:51→20:56)
[2018-01-02] MEDS: WARFARIN SOD 4 MG TAB PO SCH (12:57)
[2018-01-02] MEDS: ACETAMINOPHEN 325 MG TAB PO PRN ×2 (12:59→23:22)
[2018-01-02 16:30] VITALS: BP 130/80
[2018-01-02] MEDS: AMITRIPTYLINE HCL 25 MG TAB PO SCH (20:55)
[2018-01-02] MEDS: ATORVASTATIN 40 MG TAB PO SCH (20:55)
[2018-01-02] MEDS: traZODone HCL 50 MG TAB PO SCH (20:55)
[2018-01-02] MEDS: PANTOPRAZOLE SOD 40 MG TABEC PO SCH (20:55)
[2018-01-03] MEDS: ceFAZolin(*) 2GM/D5W 50ML 50 ML IVPB SCH ×3 (05:30→21:09)
[2018-01-03 06:53] LABS: INR 1.6
[2018-01-03] MEDS: oxyCODONE HCL 5 MG CAP PO PRN ×4 (08:14→21:07)
[2018-01-03 08:20] VITALS: BP 143/67
[2018-01-03] MEDS: ASPIRIN 81 MG ENTERIC COATED PO SCH (08:49)
[2018-01-03] MEDS: MAGNESIUM OXIDE 400 MG TAB PO SCH (08:49)
[2018-01-03] MEDS: METOPROLOL SUCC XL 25 MG TABCR PO SCH (08:49)
[2018-01-03] MEDS: FUROSEMIDE 40 MG TAB PO SCH (08:49)
[2018-01-03] MEDS: MORPHINE CR 15 MG TABCR PO SCH ×2 (08:49→21:07)
[2018-01-03] MEDS: DULoxetine HCL 30 MG CAPCR PO SCH (08:49)
[2018-01-03] MEDS: INSULIN HUM LISPRO 100 UN/ML 3 ML VIAL SUBQ PRN ×3 (08:50→21:08)
[2018-01-03] MEDS: CITALOPRAM HYDROBROM 20 MG TAB PO SCH (08:50)
[2018-01-03] MEDS: GABAPENTIN 300 MG CAP PO SCH ×3 (08:50→21:07)
[2018-01-03] MEDS: INSULIN GLARGINE 100 U/ML 3 ML PEN SUBQ SCH ×2 (08:51→21:09)
[2018-01-03] MEDS: ENOXAPARIN SC SCH ×2 (08:52→21:08)
[2018-01-03] MEDS: NYSTATIN 100,000 U/GM PWD 15GM TP SCH ×2 (09:00→21:00)
[2018-01-03] MEDS: ACETAMINOPHEN 325 MG TAB PO PRN ×2 (12:42→23:08)
[2018-01-03] MEDS: WARFARIN SOD 4 MG TAB PO SCH ×2 (13:40→13:42)
--- NOTE | 2018-01-03 13:56 | Hospitalist Progress Note ---
Subjective Progress Notes Subjective He mainly c/o trouble sleeping. No fevers. Physical Exam Vital Signs Date Time Temp Pulse Resp B/P (MAP) Pulse Ox O2 Delivery O2 Flow Rate FiO2 01/03/18 12:00 94 Nasal Cannula 2.0 01/03/18 08:20 98.2 16 143/67 (92) 01/02/18 16:30 90 Intake and Output 01/04/18 07:00 Intake Total 600 ml Output Total 1000 ml Balance -400 ml Intake Oral 600 ml Output Urine Total 1000 ml # Bowel Movements 1 General Appearance: Alert, Awake Cardiovascular: Regular Rate and Rhythm Respiratory: Clear to Auscultation GI: Soft and Non-Tender, Other (ostomy left side appears to be functioning normally) Psych: Alert & Oriented X3 Result Diagram: 01/01/1861601/01/18616 Assessment and Plan Problems: (1) Recurrent bacteremia Status: Chronic Assessment & Plan: The patient was discharged from [facility] to [facility]. Per the medication list from discharge, he was to be on Ancef 2gm IV q 8 hours through 12/11/17. He was also on oral Flagyl 500mg daily which was to continue through 12/15. He was then to start Duricef on 12/11. He did not take his IV medications as prescribed - admitting he usually only did two of the three daily doses. One of two blood cultures from an office visit with his PCP on 12/19 grew methicillin sensitive Staphylococcus. He had been having fever at home prior to this. Dr. Brady at [facility] recommended completing a 6 week course of Ancef and then placing him on lifelong oral Duricef 500mg bid. (2) Cellulitis, leg Status: Acute Assessment & Plan: Resolved on Ancef. (3) Elevated INR Status: Acute Assessment & Plan: His INR was elevated on admission on a dose of 4mg 6d/wk and 8mg 1d/wk. He never did receive Vitamin K. His warfarin was held and his INR trended down. He was restarted at 4mg daily but his INR has now trended below 2. Will change dose to 5mg daily and give a one-time dose of 10mg today. Monitor INR. Will continue to bridge with Lovenox. (4) Candidal intertrigo Status: Acute Assessment & Plan: Continue Nystatin. (5) Noncompliance Status: Chronic Assessment & Plan: The patient was sent home from [facility] with orders to complete a 6 week course of Ancef. He did not take that medication as prescribed. He will need to complete a 6 week course of IV Ancef on ECF prior to switching to oral. (6) Hypertension Status: Chronic Assessment & Plan: Continue metoprolol. (7) Chronic pain Status: Chronic Assessment & Plan: Continue MS Contin and oxycodone. (8) CAD (coronary artery disease) Status: Chronic Assessment & Plan: He is on chronic treatment with aspirin, which was held secondary to an elevated INR. This has been restarted. (9) Chronic indwelling Muñoz catheter Status: Chronic Assessment & Plan: His urine culture grew Citrobacter, but this is not felt to be clinically relevant since he is chronically colonized and not having urinary symptoms. WBC count is normal and he has not had any fever. (10) Obesity, morbid, BMI 40.0-49.9 Status: Chronic (11) Hx of deep venous thrombosis Status: Chronic (12) Septic pulmonary embolism Status: Resolved Assessment & Plan: The patient was treated for septic pulmonary emboli during one of his recent stays at [facility]. His INR is now < 2. Modifying warfarin dose as noted above. Will bridge with Lovenox. (13) Type 2 diabetes mellitus Status: Chronic Assessment & Plan: He is on chronic treatment with Lantus (70 units AM and 50 units PM). We are also covering him with sliding scale level #2. (14) Decubitus ulcer Status: Acute Assessment & Plan: Physical therapy is consulted for wound care. ANTHONY DUQUE MD Jan 03, 2018 13:56
[2018-01-03] MEDS ORDERED: WARFARIN SOD 10 MG TAB PO ONE (14:38)
[2018-01-03 16:35] VITALS: BP 97/68
[2018-01-03] MEDS: ATORVASTATIN 40 MG TAB PO SCH (21:07)
[2018-01-03] MEDS: PANTOPRAZOLE SOD 40 MG TABEC PO SCH (21:07)
[2018-01-03] MEDS: AMITRIPTYLINE HCL 25 MG TAB PO SCH (21:07)
[2018-01-03] MEDS: traZODone HCL 50 MG TAB PO SCH (22:00)
[2018-01-04] MEDS: ceFAZolin(*) 2GM/D5W 50ML 50 ML IVPB SCH ×3 (05:29→21:45)
--- NOTE | 2018-01-04 07:14 | Pharmacy Note ---
Pharmacy Note Note: Patient still with significant pain so will renew MS Contin for another 14 days. JENNIFER LYLES Jan 04, 2018 07:14
[2018-01-04 07:51] LABS: INR 1.76
[2018-01-04 08:00] VITALS: BP 121/69
[2018-01-04] MEDS: oxyCODONE HCL 5 MG CAP PO PRN ×4 (08:28→21:45)
[2018-01-04] MEDS: DULoxetine HCL 30 MG CAPCR PO SCH (09:23)
[2018-01-04] MEDS: CITALOPRAM HYDROBROM 20 MG TAB PO SCH (09:23)
[2018-01-04] MEDS: ENOXAPARIN SC SCH ×2 (09:23→20:20)
[2018-01-04] MEDS: FUROSEMIDE 40 MG TAB PO SCH (09:23)
[2018-01-04] MEDS: ASPIRIN 81 MG ENTERIC COATED PO SCH (09:23)
[2018-01-04] MEDS: MORPHINE CR 15 MG TABCR PO SCH ×2 (09:24→20:19)
[2018-01-04] MEDS: GABAPENTIN 300 MG CAP PO SCH ×3 (09:24→20:19)
[2018-01-04] MEDS: MAGNESIUM OXIDE 400 MG TAB PO SCH (09:24)
[2018-01-04] MEDS: METOPROLOL SUCC XL 25 MG TABCR PO SCH (09:24)
[2018-01-04] MEDS: INSULIN HUM LISPRO 100 UN/ML 3 ML VIAL SUBQ PRN ×4 (09:25→20:19)
[2018-01-04] MEDS: INSULIN GLARGINE 100 U/ML 3 ML PEN SUBQ SCH ×2 (09:29→20:20)
[2018-01-04] MEDS: ACETAMINOPHEN 325 MG TAB PO PRN ×2 (10:39→21:44)
[2018-01-04] MEDS: WARFARIN SOD 5 MG TAB PO SCH (12:26)
[2018-01-04] MEDS: NYSTATIN 100,000 U/GM PWD 15GM TP SCH ×2 (12:26→20:20)
[2018-01-04] MEDS: NS(*) 0.9% 250 ML BAG 250 ML IVPB PRN (14:05)
[2018-01-04 17:15] VITALS: BP 123/81
[2018-01-04] MEDS: PANTOPRAZOLE SOD 40 MG TABEC PO SCH (20:19)
[2018-01-04] MEDS: ATORVASTATIN 40 MG TAB PO SCH (20:19)
[2018-01-04] MEDS: AMITRIPTYLINE HCL 25 MG TAB PO SCH (20:19)
[2018-01-04] MEDS: traZODone HCL 50 MG TAB PO SCH (21:45)
[2018-01-05] MEDS: oxyCODONE HCL 5 MG CAP PO PRN ×5 (01:45→21:21)
[2018-01-05] MEDS: ceFAZolin(*) 2GM/D5W 50ML 50 ML IVPB SCH ×3 (05:44→21:20)
[2018-01-05 07:21] LABS: INR 2.2
[2018-01-05 08:00] VITALS: BP 117/67
[2018-01-05] MEDS: ACETAMINOPHEN 325 MG TAB PO PRN (08:50)
[2018-01-05] MEDS: GABAPENTIN 300 MG CAP PO SCH ×3 (08:51→21:20)
[2018-01-05] MEDS: MORPHINE CR 15 MG TABCR PO SCH ×2 (08:51→21:21)
[2018-01-05] MEDS: DULoxetine HCL 30 MG CAPCR PO SCH (08:51)
[2018-01-05] MEDS: METOPROLOL SUCC XL 25 MG TABCR PO SCH (08:51)
[2018-01-05] MEDS: ASPIRIN 81 MG ENTERIC COATED PO SCH (08:51)
[2018-01-05] MEDS: INSULIN GLARGINE 100 U/ML 3 ML PEN SUBQ SCH ×2 (08:52→21:20)
[2018-01-05] MEDS: CITALOPRAM HYDROBROM 20 MG TAB PO SCH (08:52)
[2018-01-05] MEDS: FUROSEMIDE 40 MG TAB PO SCH (08:52)
[2018-01-05] MEDS: NYSTATIN 100,000 U/GM PWD 15GM TP SCH ×2 (09:00→21:00)
[2018-01-05] MEDS: MAGNESIUM OXIDE 400 MG TAB PO SCH (09:00)
[2018-01-05] MEDS: INSULIN HUM LISPRO 100 UN/ML 3 ML VIAL SUBQ PRN ×3 (12:25→21:20)
[2018-01-05] MEDS: WARFARIN SOD 5 MG TAB PO SCH (13:18)
[2018-01-05 15:42] VITALS: BP 132/85
[2018-01-05] MEDS: AMITRIPTYLINE HCL 25 MG TAB PO SCH (21:20)
[2018-01-05] MEDS: PANTOPRAZOLE SOD 40 MG TABEC PO SCH (21:21)
[2018-01-05] MEDS: traZODone HCL 50 MG TAB PO SCH (21:21)
[2018-01-05] MEDS: ATORVASTATIN 40 MG TAB PO SCH (21:21)
[2018-01-05] MEDS: PROMETHAZINE 25 MG/ML 1 ML AMP IVP PRN (21:36)
[2018-01-06] MEDS: oxyCODONE HCL 5 MG CAP PO PRN ×4 (02:57→21:05)
[2018-01-06] MEDS: PROMETHAZINE 25 MG/ML 1 ML AMP IVP PRN ×2 (02:58→16:39)
[2018-01-06] MEDS: ceFAZolin(*) 2GM/D5W 50ML 50 ML IVPB SCH ×3 (05:50→21:55)
[2018-01-06 06:55] LABS: INR 2.07
[2018-01-06 08:00] VITALS: BP 126/85
[2018-01-06] MEDS: NYSTATIN 100,000 U/GM PWD 15GM TP SCH ×2 (09:00→21:05)
[2018-01-06] MEDS: INSULIN GLARGINE 100 U/ML 3 ML PEN SUBQ SCH ×2 (09:00→21:06)
[2018-01-06] MEDS: DULoxetine HCL 30 MG CAPCR PO SCH (09:32)
[2018-01-06] MEDS: MAGNESIUM OXIDE 400 MG TAB PO SCH (09:32)
[2018-01-06] MEDS: GABAPENTIN 300 MG CAP PO SCH ×3 (09:32→21:05)
[2018-01-06] MEDS: METOPROLOL SUCC XL 25 MG TABCR PO SCH (09:32)
[2018-01-06] MEDS: MORPHINE CR 15 MG TABCR PO SCH ×2 (09:32→21:05)
[2018-01-06] MEDS: FUROSEMIDE 40 MG TAB PO SCH (09:33)
[2018-01-06] MEDS: CITALOPRAM HYDROBROM 20 MG TAB PO SCH (09:33)
[2018-01-06] MEDS: ASPIRIN 81 MG ENTERIC COATED PO SCH (09:33)
[2018-01-06] MEDS: WARFARIN SOD 5 MG TAB PO SCH (13:53)
[2018-01-06 17:10] VITALS: BP 110/68
[2018-01-06] MEDS: INSULIN HUM LISPRO 100 UN/ML 3 ML VIAL SUBQ PRN ×2 (17:54→21:06)
[2018-01-06] MEDS: PANTOPRAZOLE SOD 40 MG TABEC PO SCH (21:05)
[2018-01-06] MEDS: ATORVASTATIN 40 MG TAB PO SCH (21:05)
[2018-01-06] MEDS: AMITRIPTYLINE HCL 25 MG TAB PO SCH (21:05)
[2018-01-06] MEDS: traZODone HCL 50 MG TAB PO SCH (21:56)
[2018-01-07] MEDS: oxyCODONE HCL 5 MG CAP PO PRN ×5 (03:48→21:30)
[2018-01-07] MEDS: ceFAZolin(*) 2GM/D5W 50ML 50 ML IVPB SCH (05:15)
[2018-01-07 07:24] LABS: INR 2.65
[2018-01-07 08:25] VITALS: BP 111/65
[2018-01-07] MEDS: ACETAMINOPHEN 325 MG TAB PO PRN ×2 (08:27→17:25)
[2018-01-07] MEDS: METOPROLOL SUCC XL 25 MG TABCR PO SCH (08:27)
[2018-01-07] MEDS: GABAPENTIN 300 MG CAP PO SCH ×3 (08:27→20:17)
[2018-01-07] MEDS: CITALOPRAM HYDROBROM 20 MG TAB PO SCH (08:27)
[2018-01-07] MEDS: DULoxetine HCL 30 MG CAPCR PO SCH (08:27)
[2018-01-07] MEDS: ASPIRIN 81 MG ENTERIC COATED PO SCH (08:27)
[2018-01-07] MEDS: MORPHINE CR 15 MG TABCR PO SCH ×2 (08:27→20:17)
[2018-01-07] MEDS: MAGNESIUM OXIDE 400 MG TAB PO SCH (08:27)
[2018-01-07] MEDS: FUROSEMIDE 40 MG TAB PO SCH (08:28)
[2018-01-07] MEDS: INSULIN HUM LISPRO 100 UN/ML 3 ML VIAL SUBQ PRN ×4 (08:28→20:21)
[2018-01-07] MEDS: INSULIN GLARGINE 100 U/ML 3 ML PEN SUBQ SCH ×2 (08:29→20:18)
[2018-01-07] MEDS: NYSTATIN 100,000 U/GM PWD 15GM TP SCH ×2 (08:29→20:18)
[2018-01-07] MEDS: CEFEPIME HCL 2 GM VIAL IVP SCH ×2 (09:48→20:17)
[2018-01-07 09:57] LABS: PLATELET COUNT, AUTOMATED 360 K/uL (150-450)
[2018-01-07] MEDS: TIGECYCLINE 50 MG INJS 50 MG in NS(*) 0.9% 100 ML BAG 100 ML IVPB SCH ×2 (10:13→21:30)
[2018-01-07] MEDS: WARFARIN SOD 5 MG TAB PO SCH (12:38)
--- NOTE | 2018-01-07 12:51 | Miscellaneous Provider Note ---
Miscellaneous Provider Note Note Mr. Phillips developed fever, sweats, elevated HR. BP is in normal range. His oxygen requirement has remained unchanged. I suspect he probably has a symptomatic UTI related to his indwelling Muñoz cath. Will check UA with culture as well as blood cultures, CBC, CMP. Will modify his antibiotics to be sure we have potential GNRs and possibility of now-resistant Staphylococcus. Will place him on IV cefepime, tigecycline (severe allergy to vancomycin). ANTHONY DUQUE MD Jan 07, 2018 12:51
[2018-01-07 16:45] VITALS: BP 111/60
[2018-01-07] MEDS: PANTOPRAZOLE SOD 40 MG TABEC PO SCH (20:17)
[2018-01-07] MEDS: ATORVASTATIN 40 MG TAB PO SCH (20:17)
[2018-01-07] MEDS: AMITRIPTYLINE HCL 25 MG TAB PO SCH (20:18)
[2018-01-07] MEDS: traZODone HCL 50 MG TAB PO SCH (21:30)
[2018-01-08] MEDS: oxyCODONE HCL 5 MG CAP PO PRN ×5 (04:50→21:48)
[2018-01-08] MEDS: ACETAMINOPHEN 325 MG TAB PO PRN ×2 (04:51→20:57)
[2018-01-08 06:31] LABS: PLATELET COUNT, AUTOMATED 312 K/uL (150-450)
[2018-01-08 06:37] LABS: INR 2.25
[2018-01-08 07:45] VITALS: BP 112/70
[2018-01-08] MEDS: MORPHINE CR 15 MG TABCR PO SCH ×2 (08:29→20:57)
[2018-01-08] MEDS: NYSTATIN 100,000 U/GM PWD 15GM TP SCH ×2 (08:30→20:55)
[2018-01-08] MEDS: CITALOPRAM HYDROBROM 20 MG TAB PO SCH (08:30)
[2018-01-08] MEDS: METOPROLOL SUCC XL 25 MG TABCR PO SCH (08:30)
[2018-01-08] MEDS: ASPIRIN 81 MG ENTERIC COATED PO SCH (08:30)
[2018-01-08] MEDS: MAGNESIUM OXIDE 400 MG TAB PO SCH (08:30)
[2018-01-08] MEDS: INSULIN GLARGINE 100 U/ML 3 ML PEN SUBQ SCH ×2 (08:30→20:58)
[2018-01-08] MEDS: FUROSEMIDE 40 MG TAB PO SCH (08:30)
[2018-01-08] MEDS: GABAPENTIN 300 MG CAP PO SCH ×3 (08:30→20:57)
[2018-01-08] MEDS: DULoxetine HCL 30 MG CAPCR PO SCH (08:30)
[2018-01-08] MEDS: CEFEPIME HCL 2 GM VIAL IVP SCH ×2 (08:58→20:56)
[2018-01-08] MEDS: NS(*) 0.9% 250 ML BAG 250 ML IVPB PRN (09:48)
[2018-01-08] MEDS: TIGECYCLINE 50 MG INJS 50 MG in NS(*) 0.9% 100 ML BAG 100 ML IVPB SCH ×2 (09:59→21:48)
[2018-01-08] MEDS: WARFARIN SOD 5 MG TAB PO SCH (13:21)
--- NOTE | 2018-01-08 14:43 | Medical Nutrition Therapy ---
Nutrition Anthropometrics Height (Inches): 67.00 Height (Calculated Centimeters: 170.534399 Weight (Pounds): 308 Weight (Calculated Kilograms): 140.018 BMI Calculated: 48.39 Delfino Nutrition Score: Adequate Delfino Nutrition Risk Score: 16 Dietary Referral Nutrition Risk Factors: Non-Healing Wound Nutrition Risk Comment: diabetic, ADA diet Physical Findings Physical Appearance: Morbidly Obese 40+ Skin Appearance Skin Appearance: Edema Edema Location Modifier: Edema Location: Type of Edema: Degree of Edema: Gastrointestinal Symptoms GI Symtoms: Appetite Changes Tube Present: Bowel Sounds: Recent Bowel Pattern: Colostomy Stool Characteristics: Nutritional Diagnosis Nutritional Risk Acuity 2: Abcess/Non-Healing Wound Nutritional Risk Acuity 3: ST I/II Pressure Ulcer Nutritional Risk Acuity 4: Good Appetite Past Medical History: hx abdominal surgery, colostomy, Type IIDM, Indwelling catheter, Frequent UTI, Spina Bifida, GERD, THOMAS, Neurogenic bladder, Syncope, Dizziness, pulmonary embolus, deep venous thrombosis, small bowel obstruction Nutritional Acuity: 2-Moderate Nutrition Diagnosis: Over-weight/Obesity, Inappropriate Carb Intake Nutrition Etiology: Unwilling to Apply NutrEd, Inappropriate Food Choice Nutrition Problem/Etiology/Sym: Inconsistent Carbohydrate Intake related to food and nutrition compliance limitations, e.g., lack of willingness AEB hyperglycemia documented on regular basis. Overweight/Obesity related to Excessive energy intake and Physical inactivity AEB BMI of 48.4 and physical limitations. Energy Requirement: 2400 ([place] Adjusted BW X 1.4) Protein Requirement: 74 (IBW X 1.0) Fluid Requirement: 2400 Nutrition Intervention: Cont diet as ordered Drug: Warfarin Food Likes: he likes his IT made in ptcher w/ 1 tea bag ice and water Food Dislikes: eggs! Do Not Serve Any of the Follow: Broccoli, Brussel Sprouts, Spinach, [place] Lettuce, Cranberry Juice Diet Comment To RSA: GIVE UP TO 75GM CARB/MEAL LET PT HAVE LG NON-STARCHY VEG PLATE- COUNT 0 GM CARB Nutrition Monitoring & Eval Nutrition Goals: Eat 75-100% Meal Nutrition Follow-Up: Good Intake RD Patient Assessment Time: [address] Assessment Type: RD Re-Assessment Patient Nutrition Acuity: 2-Moderate Follow Up Date: Jan 16, 2018 Nutritional Comment: Pt transferred to [facility] with recurrent bacteremia and Lower Left Leg Cellulites. Class III obesity with BMI of 48.4. Most recent labs: Alb 2.6, Glu 218, CRP 5.7. Lantus 60u q am, Lispro SSI. Receiving diabetic diet and consuming 100% of meals. Has received diet education in the past and knowlegible on diabetic diet but does admit to non-complience at home. Monitor and encourage healthy intake. 01/01 Pt cont on ADA diet, eating 100% of meals. BG cont in 200's. Wt is stable. Will cont to monitor and encourage intake. 01/08 Pt's usual intake 100% however yesterday and today has been 0-25%. Pt states not feeling well. Dr states may have UTI. BG running 200-300 which may be associated with UTI. Wt is stable. Alb declined to 3. Will cont to monitor and encourae intake. JOCELYN SMYTH Jan 08, 2018 14:43
[2018-01-08 15:51] VITALS: BP 121/68
[2018-01-08] MEDS: ATORVASTATIN 40 MG TAB PO SCH (20:56)
[2018-01-08] MEDS: AMITRIPTYLINE HCL 25 MG TAB PO SCH (20:56)
[2018-01-08] MEDS: PANTOPRAZOLE SOD 40 MG TABEC PO SCH (20:57)
[2018-01-08] MEDS: traZODone HCL 50 MG TAB PO SCH (22:29)
[2018-01-09] MEDS: oxyCODONE HCL 5 MG CAP PO PRN ×4 (05:24→22:13)
[2018-01-09 05:52] LABS: INR 2.18
[2018-01-09 08:00] VITALS: BP 107/70
[2018-01-09] MEDS: MAGNESIUM OXIDE 400 MG TAB PO SCH (09:27)
[2018-01-09] MEDS: METOPROLOL SUCC XL 25 MG TABCR PO SCH (09:27)
[2018-01-09] MEDS: GABAPENTIN 300 MG CAP PO SCH ×3 (09:27→20:49)
[2018-01-09] MEDS: MORPHINE CR 15 MG TABCR PO SCH ×2 (09:28→20:49)
[2018-01-09] MEDS: DULoxetine HCL 30 MG CAPCR PO SCH (09:28)
[2018-01-09] MEDS: FUROSEMIDE 40 MG TAB PO SCH (09:28)
[2018-01-09] MEDS: CITALOPRAM HYDROBROM 20 MG TAB PO SCH (09:29)
[2018-01-09] MEDS: ASPIRIN 81 MG ENTERIC COATED PO SCH (09:29)
[2018-01-09] MEDS: INSULIN GLARGINE 100 U/ML 3 ML PEN SUBQ SCH (09:30)
[2018-01-09] MEDS: NYSTATIN 100,000 U/GM PWD 15GM TP SCH ×2 (09:30→20:49)
[2018-01-09] MEDS: CEFEPIME HCL 2 GM VIAL IVP SCH ×2 (09:36→20:34)
[2018-01-09] MEDS: TIGECYCLINE 50 MG INJS 50 MG in NS(*) 0.9% 100 ML BAG 100 ML IVPB SCH ×2 (10:01→21:30)
--- NOTE | 2018-01-09 11:30 | EKG ---
FACILITY: [facility] PATIENT NAME: GEORGE ROY : [id number] MR: [id number] V: [id number] EXAM DATE: ORDERING PHYSICIAN: JOHN HENDRICKS TECHNOLOGIST: ANTHONY Garcias Reason : ALOC Blood Pressure : / mmHG Vent. Rate : 102 BPM Atrial Rate : 102 BPM P-R Int : 134 ms QRS Dur : 088 ms QT Int : 368 ms P-R-T Axes : 075 107 072 degrees QTc Int : 479 ms Sinus tachycardia Otherwise normal ECG When compared with ECG of 20-OCT-2017 04:00, No significant change was found Confirmed by RODRIGO BARRIGA ([id number]) on 01/11/2018 2:13:47 PM Referred By: RUTHIE Confirmed By:RODRIGO BARRIGA
[2018-01-09] MEDS: WARFARIN SOD 5 MG TAB PO SCH (14:19)
--- NOTE | 2018-01-09 15:07 | PT ECF NOTE ---
Type of Note: Discharge Summary Primary Medical Diagnosis: Recurrent Bacteremia Physical Therapy Evaluation Date: 12/26/17 SUBJECTIVE: Prior Hospitalization: Extensive history, please see H&P for details. Multiple admissions to rehab hospitals recently. Prior Level of Function: Pt resides with his in senior housing. Pt utilizes a RW for transfers and ambulation within the apartment and a wheelchair for community distances. Pt is able to perform bed mobility and transfers without assistance. Pt reports ambulation distance at 150-180' in the hallways with his home health care PT. Pt currently does not utilize a cushion in his wheelchair or recliner where he spends most of his time. Prior Living Status: Senior housing, Spouse, Assist by family Community Services: Support adequate, Home health care, Meals on Wheels, No known additional needs Home Accessibility: Elevator, All needs on one level, Walk-in shower Equipment Owned: Front wheeled walker, Wheelchair Medical Complications/Past Medical History: Extensive, please see [employer]. Spina bifida with decreased LE strength and sensation. Psychosocial Support: Pt has supportive , family, and home health care Pain Scale (0-10): Pt reports chronic pain. OBJECTIVE: Strength: Right Lower Extremity: grossly 4/5 throughout Left Lower Extremity: grossly 4/5 throughout ROM: (please note any abnormalities) decreased B ankle and foot ROM Sensation: (please note any abnormalities) Decreased sensation in B LEs and buttocks Bed Mobility: Mod I with head of bed elevated Transfers: CGA from chair Assistive Device: Front wheeled walker Gait: CGA x60' Assistive device: Front wheeled walker Integumentary system: Approx. quarter sized stage II ulceration L ischial tuberosity not requiring skilled debridement. ASSESSMENT: Pt progressing toward PT goals and began transition to independent program to increase endurance and strength/fitness. Pt requires strong encouragement for participation in this transition and states he "will not do it " without a "workout josie". Pt previously educated on appropriate use of skilled physical therapy services. Pt has reached maximum benefit from skilled PT in this setting and will be transitioned to independent program. Problem List/Current Limitations: Pain, Decreased strength, Decreased balance, Generalized weakness Short Term Goals: 1. SBA bed mobility. 2. SBA transfers. 3. Ambulation x 50' with RW. 4. Pt demonstrate understanding of appropriate weight shifting in bed and chair. Coordinator Skill Training Program Goals: Return home. Patient Goals: Return home. Rehabilitation Prognosis: Fair Barriers for Discharge: Multiple medical problems and decreased initiation of self-care demonstrated in the past. PLAN: Pt has reached maximum benefit from skilled PT in this setting and will be transitioned to independent program. Thank you for this referral. If you have any questions, concerns, or comments about this report or plan, please contact me at . Puja Gonzalez, PT, DPT, GCS MTDD
[2018-01-09] MEDS: INSULIN HUM LISPRO 100 UN/ML 3 ML VIAL SUBQ PRN ×2 (16:40→20:52)
[2018-01-09 17:00] VITALS: BP 103/61
[2018-01-09] MEDS: PANTOPRAZOLE SOD 40 MG TABEC PO SCH (20:49)
[2018-01-09] MEDS: AMITRIPTYLINE HCL 25 MG TAB PO SCH (20:49)
[2018-01-09] MEDS: ATORVASTATIN 40 MG TAB PO SCH (20:49)
[2018-01-09] MEDS ORDERED: INSULIN GLARGINE 100 U/ML 3 ML PEN SUBQ SCH (21:00)
[2018-01-09] MEDS: traZODone HCL 50 MG TAB PO SCH (21:30)
[2018-01-10] MEDS: oxyCODONE HCL 5 MG CAP PO PRN ×4 (04:08→22:30)
[2018-01-10 07:25] LABS: INR 2.37
[2018-01-10 08:10] VITALS: BP 100/50
[2018-01-10] MEDS: DULoxetine HCL 30 MG CAPCR PO SCH (08:52)
[2018-01-10] MEDS: MORPHINE CR 15 MG TABCR PO SCH ×2 (08:52→20:42)
[2018-01-10] MEDS: METOPROLOL SUCC XL 25 MG TABCR PO SCH (08:52)
[2018-01-10] MEDS: CITALOPRAM HYDROBROM 20 MG TAB PO SCH (08:52)
[2018-01-10] MEDS: FUROSEMIDE 40 MG TAB PO SCH (08:53)
[2018-01-10] MEDS: ASPIRIN 81 MG ENTERIC COATED PO SCH (08:53)
[2018-01-10] MEDS: MAGNESIUM OXIDE 400 MG TAB PO SCH (08:53)
[2018-01-10] MEDS: GABAPENTIN 300 MG CAP PO SCH ×3 (08:53→20:42)
[2018-01-10] MEDS: NYSTATIN 100,000 U/GM PWD 15GM TP SCH ×2 (09:00→20:55)
[2018-01-10] MEDS ORDERED: INSULIN GLARGINE 100 U/ML 3 ML PEN SUBQ SCH (09:00)
[2018-01-10] MEDS: CEFEPIME HCL 2 GM VIAL IVP SCH ×2 (09:07→20:42)
[2018-01-10] MEDS: TIGECYCLINE 50 MG INJS 50 MG in NS(*) 0.9% 100 ML BAG 100 ML IVPB SCH ×2 (10:03→21:31)
[2018-01-10] MEDS: ACETAMINOPHEN 325 MG TAB PO PRN (10:10)
[2018-01-10] MEDS ORDERED: INSU100I35 SQ (11:04)
--- NOTE | 2018-01-10 11:09 | Hospitalist Progress Note ---
Subjective Progress Notes Subjective No new complaints. Would like to use Novolog with each meal as he does at home. Physical Exam Vital Signs Date Time Temp Pulse Resp B/P (MAP) Pulse Ox O2 Delivery O2 Flow Rate FiO2 01/09/18 17:00 97.3 92 20 103/61 (75) 93 Nasal Cannula 3.0 Intake and Output 01/11/18 07:00 Intake Total 522 ml Balance 522 ml Intake Oral 480 ml IV Total 42 ml General Appearance: Alert, Awake, No Acute Distress Neuro: No Gross deficits Cardiovascular: Regular Rate and Rhythm Respiratory: Clear to Auscultation GI: Soft and Non-Tender, Other (Ostomy bag in place.) Extremities: Warm, Perfused, Edema (No edema.) Psych: Alert & Oriented X3, Appropriate Mood & Affect Result Diagram: 01/08/1860401/08/18604 Assessment and Plan Problems: (1) Recurrent bacteremia Status: Chronic Assessment & Plan: The patient was discharged from [facility] to [facility]. Per the medication list from discharge, he was to be on Ancef 2gm IV q 8 hours through 12/11/17. He was also on oral Flagyl 500mg daily which was to continue through 12/15. He was then to start Duricef on 12/11. He did not take his IV medications as prescribed - admitting he usually only did two of the three daily doses. One of two blood cultures from an office visit with his PCP on 12/19 grew methicillin sensitive Staphylococcus. He had been having fever at home prior to this. Dr. Brady at [facility] recommended completing a 6 week course of Ancef and then placing him on lifelong oral Duricef 500mg bid. He did develop fever on 01/07 and was switched to Cefepime and tigecycline. His fever has improved. BC X 2 have been negative so far. Urine culture is growing several bacteria. (2) Cellulitis, leg Status: Acute Assessment & Plan: Resolved on Ancef. (3) Elevated INR Status: Acute Assessment & Plan: His INR was elevated on admission on a dose of 4mg 6d/wk and 8mg 1d/wk. He never did receive Vitamin K. His warfarin was held and his INR trended down. He was restarted at 4mg daily but his INR has now trended below 2. Will change dose to 5mg daily and give a one-time dose of 10mg today. Monitor INR. No therapeutic. Lovenox has been stopped. (4) Candidal intertrigo Status: Acute Assessment & Plan: Continue Nystatin. (5) Noncompliance Status: Chronic Assessment & Plan: The patient was sent home from [facility] with orders to complete a 6 week course of Ancef. He did not take that medication as prescribed. He will need to complete a 6 week course of IV Ancef on ECF prior to switching to oral. (6) Hypertension Status: Chronic Assessment & Plan: Continue metoprolol. (7) Chronic pain Status: Chronic Assessment & Plan: Continue MS Contin and oxycodone. (8) CAD (coronary artery disease) Status: Chronic Assessment & Plan: He is on chronic treatment with aspirin, which was held secondary to an elevated INR. This has been restarted. (9) Chronic indwelling Muñoz catheter Status: Chronic Assessment & Plan: His urine culture grew Citrobacter, but this is not felt to be clinically relevant since he is chronically colonized and not having urinary symptoms. WBC count is normal and he has not had any fever. (10) Obesity, morbid, BMI 40.0-49.9 Status: Chronic (11) Hx of deep venous thrombosis Status: Chronic (12) Septic pulmonary embolism Status: Resolved Assessment & Plan: The patient was treated for septic pulmonary emboli during one of his recent stays at [facility]. His INR is now < 2. Modifying warfarin dose as noted above. Will bridge with Lovenox. (13) Type 2 diabetes mellitus Status: Chronic Assessment & Plan: He was placed on chronic treatment with Lantus (70 units AM and 50 units PM). Morning sugars are low and evening are high. Will switch to Lantus 55 u in am and 25 u at HS.We are also covering him with sliding scale level #2. He uses Novolog 30u before meals at home. Will stop SSI and switch to Novolog 20u before meals here. (14) Decubitus ulcer Status: Acute Assessment & Plan: Physical therapy is consulted for wound care. Exam Sepsis Risk: No Definite Risk JOHN DUQUE MD Jan 10, 2018 11:09
[2018-01-10 12:20] VITALS: BP 121/63
[2018-01-10] MEDS: INSULIN ASPART 100 U/ML 3 ML PEN SUBQ SCH ×2 (12:53→16:30)
[2018-01-10] MEDS: WARFARIN SOD 5 MG TAB PO SCH (13:16)
[2018-01-10 17:35] VITALS: BP 105/64
[2018-01-10] MEDS: AMITRIPTYLINE HCL 25 MG TAB PO SCH (20:42)
[2018-01-10] MEDS: ATORVASTATIN 40 MG TAB PO SCH (20:42)
[2018-01-10] MEDS: PANTOPRAZOLE SOD 40 MG TABEC PO SCH (20:42)
[2018-01-10] MEDS: INSULIN GLARGINE 100 U/ML 3 ML PEN SUBQ SCH (20:43)
[2018-01-10] MEDS: traZODone HCL 50 MG TAB PO SCH (21:31)
[2018-01-11] MEDS: ACETAMINOPHEN 325 MG TAB PO PRN ×2 (01:10→10:48)
[2018-01-11] MEDS: oxyCODONE HCL 5 MG CAP PO PRN ×4 (02:42→21:22)
[2018-01-11 06:22] LABS: PLATELET COUNT, AUTOMATED 320 K/uL (150-450)
[2018-01-11 06:31] LABS: INR 2.45
[2018-01-11 08:20] VITALS: BP 131/53
[2018-01-11] MEDS: MORPHINE CR 15 MG TABCR PO SCH ×2 (09:12→20:20)
[2018-01-11] MEDS: ASPIRIN 81 MG ENTERIC COATED PO SCH (09:12)
[2018-01-11] MEDS: GABAPENTIN 300 MG CAP PO SCH ×3 (09:13→20:20)
[2018-01-11] MEDS: DULoxetine HCL 30 MG CAPCR PO SCH (09:13)
[2018-01-11] MEDS: MAGNESIUM OXIDE 400 MG TAB PO SCH (09:13)
[2018-01-11] MEDS: METOPROLOL SUCC XL 25 MG TABCR PO SCH (09:13)
[2018-01-11] MEDS: CITALOPRAM HYDROBROM 20 MG TAB PO SCH (09:13)
[2018-01-11] MEDS: FUROSEMIDE 40 MG TAB PO SCH (09:14)
[2018-01-11] MEDS: CEFEPIME HCL 2 GM VIAL IVP SCH ×2 (09:15→20:20)
[2018-01-11] MEDS: INSULIN GLARGINE 100 U/ML 3 ML PEN SUBQ SCH ×2 (09:16→20:21)
[2018-01-11] MEDS: INSULIN ASPART 100 U/ML 3 ML PEN SUBQ SCH ×3 (09:17→16:30)
[2018-01-11] MEDS: NYSTATIN 100,000 U/GM PWD 15GM TP SCH ×2 (10:00→20:21)
[2018-01-11] MEDS: TIGECYCLINE 50 MG INJS 50 MG in NS(*) 0.9% 100 ML BAG 100 ML IVPB SCH ×2 (10:00→21:22)
[2018-01-11] MEDS: WARFARIN SOD 5 MG TAB PO SCH (13:45)
[2018-01-11 17:15] VITALS: BP 111/70
[2018-01-11] MEDS: ATORVASTATIN 40 MG TAB PO SCH (20:20)
[2018-01-11] MEDS: AMITRIPTYLINE HCL 25 MG TAB PO SCH (20:20)
[2018-01-11] MEDS: PANTOPRAZOLE SOD 40 MG TABEC PO SCH (20:20)
[2018-01-11] MEDS ORDERED: INSU100I30 SUBQ ×2 (20:58)
[2018-01-11] MEDS ORDERED: TIGE50VI6 IV (20:58)
[2018-01-11] MEDS ORDERED: FURO-47 PO (20:58)
[2018-01-11] MEDS ORDERED: CEFE2VIA13 IVP (20:58)
[2018-01-11] MEDS ORDERED: INSU100I35 SUBQ (20:58)
[2018-01-11] MEDS ORDERED: WARF-1 PO (20:58)
[2018-01-11] MEDS ORDERED: [UNRECOGNIZED DRUG - CODE] PO (21:01)
[2018-01-11] MEDS: traZODone HCL 50 MG TAB PO SCH (21:22)
--- NOTE | 2018-01-11 22:10 | Hospitalist Depart ---
Discharge Summary Reason for Hosp/Final Diag: (1) Recurrent bacteremia Status: Chronic Hospital Course & Plan: He was found to have recurrent bacteremia with methicillin sensitive Staphylococcus during his inpatient admission. 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 Surgery to remove this was deemed to be to risky given his comorbid conditions. His was previously discharged from [facility] with a plan to complete 6 weeks of IV Ancef and then life long Duricef. However, he was noncompliant with this and was not taking his medications as directed. He again had positive cultures on this admission. We did have him back on the IV Ancef, but then he was converted to tigecycline and cefepime secondary to recurrent fevers. His plan now is to discharge to home health to complete the remaining 4 weeks of IV antibiotics. He will then resume the life long Duricef 500mg twice daily. (2) Cellulitis, leg Status: Acute Hospital Course & Plan: Resolved on Ancef. (3) Elevated INR Status: Acute Hospital Course & Plan: His INR was elevated on admission. His warfarin dose is now 5mg daily and this has been keeping him in therapeutic range. (4) Candidal intertrigo Status: Acute Hospital Course & Plan: Continue Nystatin. (5) Noncompliance Status: Chronic Hospital Course & Plan: The patient was sent home from [facility] with orders to complete a 6 week course of Ancef. He did not take that medication as prescribed. (6) Hypertension Status: Chronic Hospital Course & Plan: Continue metoprolol. (7) Chronic pain Status: Chronic Hospital Course & Plan: Continue MS Contin and oxycodone. (8) CAD (coronary artery disease) Status: Chronic Hospital Course & Plan: He is on chronic treatment with aspirin. (9) Chronic indwelling Muñoz catheter Status: Chronic Hospital Course & Plan: His urine culture grew Citrobacter, but this is not felt to be clinically relevant since he is chronically colonized and not having urinary symptoms. WBC count is normal and he has not had any fever. (10) Obesity, morbid, BMI 40.0-49.9 Status: Chronic (11) Hx of deep venous thrombosis Status: Chronic (12) Septic pulmonary embolism Status: Resolved Hospital Course & Plan: The patient was treated for septic pulmonary emboli during one of his recent stays at [facility]. (13) Type 2 diabetes mellitus Status: Chronic Hospital Course & Plan: He is insulin doses have been adjusted as per the medication list below. His metformin has been discontinued secondary to recurrent lactic acidosis. (14) Decubitus ulcer Status: Acute Hospital Course & Plan: Physical therapy was consulted for wound care. Departure Latest Vital Signs Vital Signs 01/11/18 17:15 Temp 97.5 Pulse 94 Resp 20 B/P (MAP) 111/70 (84) Pulse Ox 96 O2 Delivery Nasal Cannula O2 Flow Rate 2.5 Weight (Pounds): 305 Weight (Ounces): 11.0 Result Diagram: 01/11/18 0552 01/11/18551 Condition: Improved Discharge: Home, Home Health PT/OT Follow Up For: PT Evaluation and Treat Home Health RN Follow Up For: Medication Management, Nursing Assessment Discharge Instructions Home Meds Active Scripts Cefadroxil Hydrate (CEFADROXIL) 500 Mg Capsule, 500 MG PO BID, #60 CAPSULE Start after IV abx are complete. Prov:NITHYARODRIGO CUNNINGHAM DO 01/11/18 Warfarin Sodium (COUMADIN) 5 Mg Tablet, 5 MG PO QDAY@13, #30 TAB Prov:NITHYARODRIGO DO 01/11/18 Tigecycline (TYGACIL) 50 Mg Vial, 50 MG IV Q12H, #56 VIAL Prov:NITHYARODRIGO CUNNINGHAM DO 01/11/18 Cefepime Hcl (CEFEPIME HCL) 2 Gm Vial, 2 GM IVP Q12H, #56 VIAL Prov:NITHYARODRIGO CUNNINGHAM DO 01/11/18 Insulin Glargine,Hum.rec.anlog (LANTUS SOLOSTAR) 100 Unit/1 Ml Insuln.pen, 55 UNIT SUBQ QAM, #3 ML Prov:NITHYARODRIGO 01/11/18 Insulin Glargine,Hum.rec.anlog (LANTUS SOLOSTAR) 100 Unit/1 Ml Insuln.pen, 25 UNIT SUBQ QHS, #3 ML Prov:NITHYARODRIGO CUNNINGHAM DO 01/11/18 Insulin Aspart (NOVOLOG FLEXPEN) 100 Unit/1 Ml Insuln.pen, 20 UNIT SUBQ TIDAC, # 3 ML Prov:NITHYARODRIGO CUNNINGHAM DO 01/11/18 Furosemide (FUROSEMIDE) 40 Mg Tablet, 40 MG PO QDAY, #30 TAB Prov:NITHYARODRIGO CUNNINGHAM DO 01/11/18 Pantoprazole Sodium (PANTOPRAZOLE SODIUM) 40 Mg Tablet.dr, 40 MG PO HS, #90 TAB.SR 1 Refill Prov:JOHN DUQUE MD 12/21/17 Magnesium Oxide (MAGNESIUM OXIDE) 400 Mg Tablet, 1 TAB PO DAILY, #180 TAB 2 Refills Prov:JOHN DUQUE MD 12/21/17 [Ostomy Supplies] No Conflict Check Prov:LENIN ANTONIO APRN 12/21/17 NYSTATIN 482157 UNT/ML Topical Cream (NYSTATIN 694245 UNT/ML Topical Cream) 15 Gm Cream..g., 1 JAEL TP BID, #120 GM 2 Refills Apply to yeast infection twice daily until resolved then treat the area once daily M, W, F Prov:LENIN ANTONIO APRN 12/19/17 Trazodone Hcl (TRAZODONE HCL) 50 Mg Tablet, 50 MG PO QHS, #90 TAB 1 Refill Prov:LENIN ANTONIO APRN 12/05/17 Citalopram Hydrobromide (CITALOPRAM HBR) 20 Mg Tablet, 1 TAB PO DAILY, #90 TAB 1 Refill Prov:LENIN ANTONIO APRN 09/29/17 Atorvastatin Calcium (ATORVASTATIN CALCIUM) 40 Mg Tablet, 1 TAB PO QHS, #90 TAB 1 Refill Prov:LENIN ANTONIO APRN 04/12/17 Metoprolol Succinate (TOPROL XL) 50 Mg Tab.er.24h, 0.5 TAB PO QDAY, #30 TAB 5 Refills Prov:LENIN ANTONIO APRN 03/20/17 Reported Medications Oxygen (OXYGEN) Inha, 2 L INH, L 12/26/17 Duloxetine Hcl (CYMBALTA) 30 Mg Capsule.dr, 30 MG PO QDAY, #5 CAP 12/21/17 Gabapentin (GABAPENTIN) 600 Mg Tablet, 600 MG PO TID 12/21/17 Lactose-Free Food (ENSURE CLEAR) 296 Ml Liquid, 296 ML PO HS 12/21/17 Morphine Sulfate 15 Mg Er Tab (MORPHINE SULFATE 15 MG ER TAB) 15 Mg Tablet.er, 1 TAB PO Q12H 12/05/17 Oxycodone Hcl 20 Mg Tab (OXYCODONE HCL 20 MG TAB) 20 Mg Tablet, 1 TAB PO Q4H Y for PAIN 12/05/17 Aspirin (ASPIRIN) 81 Mg Tab.chew, 81 MG PO QDAY, TAB.CHEW 12/02/17 Amitriptyline Hcl (AMITRIPTYLINE HCL) 25 Mg Tablet, 25 MG PO QHS, #5 TAB 12/02/17 Discontinued Reported Medications Insulin Aspart (NOVOLOG FLEXPEN) 100 Unit/1 Ml Insuln.pen, 30 UNIT SQ TIDAC 01/10/18 Cefadroxil Hydrate (CEFADROXIL) 500 Mg Capsule, 1 CAP PO DAILY 12/27/17 Insulin Glargine (LANTUS) 100 Unit/Ml Soln, 70 UNIT SUBQ QHS, ML 12/26/17 Insulin Glargine (LANTUS) 100 Unit/Ml Soln, 80 UNIT SUBQ QAM, ML 12/21/17 Acetaminophen (TYLENOL EXTRA STRENGTH) 500 Mg Tablet, 1000 MG PO Q6H Y for PAIN , TAB 12/21/17 Warfarin Sodium (WARFARIN SODIUM) 4 Mg Tablet, 1 TAB PO QHS Hassan 4 MG, M 4 MG, Tu 4 MG, W 4 MG, Th 4 MG, F 4 MG, Sa 8 MG 11/24/17 Discontinued Scripts Metformin Hcl (METFORMIN HCL) 1,000 Mg Tablet, 1 TAB PO BID, #180 TAB 3 Refills Prov:LENIN ANTONIO APRN-C 12/12/17 Furosemide (LASIX) 40 Mg Tablet, 1 TAB PO BID, #180 TAB 1 Refill Prov:LENIN ANTNOIO APRN-C 05/31/17 Diet: Diabetic Activity: As Tolerated Copies to: LENIN ANTONIO APRNP-C Venous Thromboembolism Antithrombotics Is Pt On Any Antithrombotics?: Yes [id number] Certification Face to Face Home Health Certification Institutional Provider conducted the [id number] encounter. Electronic Undersigning Physician Certifies Home Health. I certify that the patient has been under my care and that I had a [id number] encounter that meets the physician [id number] encounter requirements with this patient. This patient is home-bound due to safety issues and continues to require assistance with ADL's. I certify that based on my findings, that Nursing, Aides and the following Home Health services are medically necessary: Medical Necessity: Nursing, Rehab Date Face to Face Conducted: Jan 11, 2018 RODRIGO BARRIGA DO Jan 11, 2018 22:10
[2018-01-12] MEDS: ACETAMINOPHEN 325 MG TAB PO PRN (00:42)
[2018-01-12] MEDS: oxyCODONE HCL 5 MG CAP PO PRN ×2 (01:44→08:43)
[2018-01-12 06:24] LABS: INR 2.6
[2018-01-12 07:30] VITALS: BP 134/81
[2018-01-12] MEDS: INSULIN ASPART 100 U/ML 3 ML PEN SUBQ SCH (08:42)
[2018-01-12] MEDS: CITALOPRAM HYDROBROM 20 MG TAB PO SCH (08:43)
[2018-01-12] MEDS: INSULIN GLARGINE 100 U/ML 3 ML PEN SUBQ SCH (08:43)
[2018-01-12] MEDS: GABAPENTIN 300 MG CAP PO SCH (08:43)
[2018-01-12] MEDS: ASPIRIN 81 MG ENTERIC COATED PO SCH (08:43)
[2018-01-12] MEDS: DULoxetine HCL 30 MG CAPCR PO SCH (08:43)
[2018-01-12] MEDS: FUROSEMIDE 40 MG TAB PO SCH (08:44)
[2018-01-12] MEDS: MAGNESIUM OXIDE 400 MG TAB PO SCH (08:44)
[2018-01-12] MEDS: MORPHINE CR 15 MG TABCR PO SCH (08:44)
[2018-01-12] MEDS: METOPROLOL SUCC XL 25 MG TABCR PO SCH (08:44)
[2018-01-12] MEDS: CEFEPIME HCL 2 GM VIAL IVP SCH (09:39)
[2018-01-12] MEDS: TIGECYCLINE 50 MG INJS 50 MG in NS(*) 0.9% 100 ML BAG 100 ML IVPB SCH (09:53)
== END 2018-01-12 11:00 | disposition home health service (06) | DRG 91 ==
LOC: ECF 14:50
PROVIDERS: ADMIT Internal Medicine; ATTEND Internal Medicine
DX: T85.730A Infection and inflammatory reaction due to ventricular intracranial (communicating) shunt, initial encounter (principal); L89.323 Pressure ulcer of left buttock, stage 3; Z68.42 Body mass index [BMI] 45.0-49.9, adult; I10 Essential (primary) hypertension; B37.2 Candidiasis of skin and nail; E66.01 Morbid (severe) obesity due to excess calories; N31.9 Neuromuscular dysfunction of bladder, unspecified; G89.29 Other chronic pain; I25.10 Atherosclerotic heart disease of native coronary artery without angina pectoris; T83.511A Infection and inflammatory reaction due to indwelling urethral catheter, initial encounter; L89.150 Pressure ulcer of sacral region, unstageable; Q05.9 Spina bifida, unspecified; E11.65 Type 2 diabetes mellitus with hyperglycemia; M31.6 Other giant cell arteritis; G47.33 Obstructive sleep apnea (adult) (pediatric); Z88.0 Allergy status to penicillin; Z88.1 Allergy status to other antibiotic agents; Z88.8 Allergy status to other drugs, medicaments and biological substances; Z91.128 Patient's intentional underdosing of medication regimen for other reason; Z86.718 Personal history of other venous thrombosis and embolism; Z79.01 Long term (current) use of anticoagulants; Z79.4 Long term (current) use of insulin; Z87.440 Personal history of urinary (tract) infections; Z91.041 Radiographic dye allergy status; Z90.49 Acquired absence of other specified parts of digestive tract; Z98.2 Presence of cerebrospinal fluid drainage device; Z93.3 Colostomy status
CPT/HCPCS: 36415; 36416; 81001; 82040; 82247; 82310; 82374; 82435; 82565; 82947; 82948; 84075; 84132; 84155; 84295; 84450; 84460; 84520; 85025; 85610; 87040; 87077; 87088; 87186; 93005; 97163; 97165; J0690; J0692; J1650; J1815; J2550; J3243; J7050

== ENCOUNTER → 2018-01-18 | Outpatient (REF) | payer MEDICARE, MEDICAID ==
[2017-12-26 12:06] VITALS: BMI 48.4
[~2018-01-18] MED LIST changes: +CEFE2VIA13 IVP; +FURO-47 PO; +INSU100I30 SUBQ; +INSU100I35 SUBQ; +WARF-1 PO
[2018-01-18 08:51] LABS: INR 1.73
== END ==
LOC: ZZSENDIN 08:32
PROVIDERS: ATTEND Nurse Practitioner Family
DX: Z51.81 Encounter for therapeutic drug level monitoring (principal); Z79.01 Long term (current) use of anticoagulants
CPT/HCPCS: 85610

== ENCOUNTER → 2018-01-19 | Outpatient (CLI) | payer MEDICARE, MEDICAID ==
[2017-12-26 12:06] VITALS: BMI 48.4
== END ==
LOC: AMB 16:51
PROVIDERS: ATTEND Nurse Practitioner
DX: Z76.89 Persons encountering health services in other specified circumstances (principal)
CPT/HCPCS: A0998

== ENCOUNTER → 2018-01-24 | Outpatient (CLI) | payer MEDICARE, MEDICAID ==
[2017-12-26 12:06] VITALS: BMI 48.4
[~2018-01-24] MED LIST changes: +LIDOCAINE MPF 1% 5 ML VIAL ONE
--- NOTE | 2018-01-24 17:39 | RADIOLOGY IMAGING REPORT ---
FACILITY: [facility] - [place] PATIENT NAME: Rodrigue Phillips : 1960 MR: [id number] V: [id number] EXAM DATE: ORDERING PHYSICIAN: LENIN ANTONIO TECHNOLOGIST: Location: [facility] Patient: Rodrigue Phillips : 1960 Visit/Account:[id number] Date of Sevice: 01/24/2018 Exam type: PICC LINE INSERTION, PICC LINE PLACEMENT, FLUOROSCOPY History: Need for IV antibiotics Comparison: None. Findings: Informed consent was obtained. The patient's left arm was prepped and draped usual sterile fashion. Local anesthesia was accomplished with 1% lidocaine. Under sonographic and fluoroscopic guidance a 39 cm long trimmed 5 Filipino double-lumen power PICC was inserted via the patent left basilic vein wit h the distal tip resting in superior vena cava. Both lumens of power PICC were flushed with 5 mL of saline flush. The proximal portion PICC line was adhered the patient's arm the sterile dressing. Th e sonographic images were saved to PACS. The procedure was accomplished with no apparent complicatio n. The fluoroscopy dose area product was 108.12 micro-Prater per meter squared IMPRESSION: 1. Successful placement of a 39 cm long trimmed 5 Filipino double-lumen power PICC inserted via the pa tent left basilic vein with the distal tip resting in superior vena cava. Report Dictated By: Milena Olea MD at 01/24/2018 5:28 PM Report E-Signed By: Milena Olea MD at 01/24/2018 5:32 PM WSN:[email or web address]
--- NOTE | 2018-01-24 17:40 | RADIOLOGY IMAGING REPORT ---
FACILITY: [facility] [place] PATIENT NAME: Rodrigue Phillips : 1960 MR: [id number] V: [id number] EXAM DATE: [id number] ORDERING PHYSICIAN: LENIN ANTONIO TECHNOLOGIST: Location: [facility] [place] Patient: Rodrigue Phillips : 1960 Visit/Account:[id number] Date of Sevice: 01/24/2018 Exam type: PICC LINE INSERTION, PICC LINE PLACEMENT, FLUOROSCOPY History: Need for IV antibiotics Comparison: None. Findings: Informed consent was obtained. The patient's left arm was prepped and draped usual sterile fashion. Local anesthesia was accomplished with 1% lidocaine. Under sonographic and fluoroscopic guidance a 39 cm long trimmed 5 Montenegrin double-lumen power PICC was inserted via the patent left basilic vein wit h the distal tip resting in superior vena cava. Both lumens of power PICC were flushed with 5 mL of saline flush. The proximal portion PICC line was adhered the patient's arm the sterile dressing. Th e sonographic images were saved to PACS. The procedure was accomplished with no apparent complicatio n. The fluoroscopy dose area product was 108.12 micro-Prater per meter squared IMPRESSION: 1. Successful placement of a 39 cm long trimmed 5 Montenegrin double-lumen power PICC inserted via the pa tent left basilic vein with the distal tip resting in superior vena cava. Report Dictated By: Milena Olea MD at 01/24/2018 5:28 PM Report E-Signed By: Milena Olea MD at 01/24/2018 5:32 PM WSN:[email or web address]
--- NOTE | 2018-01-24 17:40 | RADIOLOGY IMAGING REPORT ---
FACILITY: [facility] - [place] PATIENT NAME: Rodrigue Phillips : 1960 MR: [id number] V: [id number] EXAM DATE: ORDERING PHYSICIAN: LENIN ANTONIO TECHNOLOGIST: Location: [facility] [place] Patient: Rodrigue Phillips : 1960 Visit/Account:[id number] Date of Sevice: 01/24/2018 Exam type: PICC LINE INSERTION, PICC LINE PLACEMENT, FLUOROSCOPY History: Need for IV antibiotics Comparison: None. Findings: Informed consent was obtained. The patient's left arm was prepped and draped usual sterile fashion. Local anesthesia was accomplished with 1% lidocaine. Under sonographic and fluoroscopic guidance a 39 cm long trimmed 5 Belizean double-lumen power PICC was inserted via the patent left basilic vein wit h the distal tip resting in superior vena cava. Both lumens of power PICC were flushed with 5 mL of saline flush. The proximal portion PICC line was adhered the patient's arm the sterile dressing. Th e sonographic images were saved to PACS. The procedure was accomplished with no apparent complicatio n. The fluoroscopy dose area product was 108.12 micro-Prater per meter squared IMPRESSION: 1. Successful placement of a 39 cm long trimmed 5 Belizean double-lumen power PICC inserted via the pa tent left basilic vein with the distal tip resting in superior vena cava. Report Dictated By: Milena Olea MD at 01/24/2018 5:28 PM Report E-Signed By: Milena Olea MD at 01/24/2018 5:32 PM WSN:[email or web address]
== END ==
LOC: US 00:51
PROVIDERS: ATTEND Nurse Practitioner Family
DX: Z79.2 Long term (current) use of antibiotics (principal)
CPT/HCPCS: 36569; 76937; C1751; J2001

== ENCOUNTER → 2018-01-25 | Outpatient (REF) | payer MEDICARE, MEDICAID ==
[2017-12-26 12:06] VITALS: BMI 48.4
[~2018-01-25] MED LIST changes: -LIDOCAINE MPF 1% 5 ML VIAL ONE
[2018-01-25 22:33] LABS: INR 1.06
== END ==
LOC: ZZSENDIN 22:25
PROVIDERS: ATTEND Nurse Practitioner Family
DX: Z51.81 Encounter for therapeutic drug level monitoring (principal); Z79.01 Long term (current) use of anticoagulants
CPT/HCPCS: 85610

== ENCOUNTER → 2018-01-30 | Outpatient (CLI) | payer MEDICARE, MEDICAID ==
[2017-12-26 12:06] VITALS: BMI 48.4
[~2018-01-30] MED LIST changes: +CLO10 MT; +LACT1CAP74 PO; +ONDA4TAB9 PO; +WARF4TAB15 PO; -WARF4TAB54 PO
== END ==
LOC: LAB 17:15
PROVIDERS: ATTEND Nurse Practitioner Family
DX: R19.7 Diarrhea, unspecified (principal)
CPT/HCPCS: 87324; 87449

== ENCOUNTER → 2018-02-05 | Outpatient (REF) | payer MEDICARE, MEDICAID ==
[2017-12-26 12:06] VITALS: BMI 48.4
[2018-02-05 09:26] LABS: INR 1.73
== END ==
LOC: ZZSENDIN 09:20
PROVIDERS: ATTEND Nurse Practitioner Family
DX: E11.9 Type 2 diabetes mellitus without complications (principal); R78.81 Bacteremia
CPT/HCPCS: 82040; 82247; 82310; 82374; 82435; 82565; 82728; 82947; 83036; 83540; 83550; 84075; 84132; 84155; 84295; 84450; 84460; 84520; 85027; 85610; 86140

== ENCOUNTER → 2018-02-15 | Outpatient (CLI) | payer MEDICARE, MEDICAID ==
[2017-12-26 12:06] VITALS: BMI 48.4
[2018-02-15 17:09] LABS: PLATELET COUNT, AUTOMATED 295 K/uL (150-450)
[2018-02-15 18:03] LABS: INR 5.14
== END ==
LOC: LAB 16:30
PROVIDERS: ATTEND Nurse Practitioner Family
DX: R79.1 Abnormal coagulation profile (principal); L89.90 Pressure ulcer of unspecified site, unspecified stage; R78.81 Bacteremia; Z79.01 Long term (current) use of anticoagulants
CPT/HCPCS: 36415; 82040; 82247; 82310; 82374; 82435; 82565; 82947; 84075; 84132; 84155; 84295; 84450; 84460; 84520; 85025; 85610; 86140

== ENCOUNTER 2018-02-18 20:26 | Emergency (ER) | payer MEDICARE, MEDICAID ==
[2017-12-26 12:06] VITALS: Wt 172.7 kg
[~2018-02-18 20:26] MED LIST changes: -AZIT-18 PO; -CEFU500T10 PO; +CITA-139 PO; -CITA-145 PO; +METF-410 PO; -METF-411 PO; +METF-420 PO; -METF-421 PO; +OXYC-375 PO; -OXYC1TAB78 PO
--- NOTE | 2018-02-18 20:44 | ER Report ---
History and Physical Time Seen By MD: 20:43 Hx. of Stated Complaint: chest pain 2025 from ems HPI/ROS CHIEF COMPLAINT: Chest pain. HISTORY OF PRESENT ILLNESS: 57-year-old male with a history of MS 2 years ago, insulin-dependent diabetes, hypertension, obesity presents with severe sharp central chest pain radiating to his neck and shoulders that began yesterday. He states the pain has been constant but has worsened over the last 2 hours. He reports nausea, sweats and the pain worsens with breathing. He states he has chronic left left calf pain and swelling after an orthopedic operation years ago. REVIEW OF SYSTEMS: Constitutional: No fever, no chills. Eyes: No discharge. ENT: No sore throat. Respiratory: As above. Cardiac: As above. Gastrointestinal: No abdominal pain, no vomiting. Genitourinary: No hematuria. Musculoskeletal: No back pain. Skin: No rashes. Neurological: +headache. Allergies: Coded Allergies: vancomycin (Verified Allergy, Severe, Respiratory arrest due to bronchospasm, 12/21/17) Respiratory arrest due to bronchospasm ciprofloxacin (Verified Allergy, Intermediate, TINGLING, 12/21/17) clindamycin (Verified Allergy, Intermediate, RASH, 12/21/17) perflutren (Verified Adverse Reaction, Severe, Respiratory Arrest, 12/21/17) amoxicillin (Verified Adverse Reaction, Mild, N/V/D, 12/21/17) 07/2017: Pt tolerated Unasyn without difficulty clavulanic acid (Verified Adverse Reaction, Mild, N/V/D, 12/21/17) Uncoded Allergies: contrast definity (Allergy, Severe, MENTAL STATUS CHANGES, 08/15/17) went unresponsive Home Meds Active Scripts Azithromycin 250 Mg Tab (AZITHROMYCIN 250 MG TAB) 250 Mg Tablet, 1 TAB PO QDAY for 4 Days, #4 TAB Prov:ANDER CAMPOS MD 02/19/18 Cefuroxime Axetil (CEFUROXIME) 500 Mg Tablet, 500 MG PO BID for 5 Days, #10 TAB Prov:ANDER CAMPOS MD 02/19/18 Ferrous Sulfate (FERROUS SULFATE) 325 Mg Tablet, 1 TAB PO BID, #180 TAB 0 Refills Prov:LENIN ANTONIO APRN 8TH GRADE TEACHER-C 02/06/18 Gabapentin (GABAPENTIN) 600 Mg Tablet, 600 MG PO TID, #270 TAB 1 Refill Prov:SANDRAMyriamLENIN WOLF APRN 8TH GRADE TEACHER-C 02/05/18 Warfarin Sodium (COUMADIN) 5 Mg Tablet, 1-1.5 TAB PO QDAY@13, #45 TAB 5 Refills 1.5 tabs every monday and 1 tab all other days Prov:LENIN ANTONIO APRN 8[employer] GR[employer] TEACHER-C 01/31/18 Lactobacillus Rhamnosus Gg (CULTURELLE) 1 Each Capsule, 1 EACH PO NOON, #30 CAPSULE 0 Refills Prov:LENIN ANTONIO APRN 8TH GRADE TEACHER-C 01/30/18 Amitriptyline Hcl (AMITRIPTYLINE HCL) 25 Mg Tablet, 25 MG PO QHS, #90 TAB 1 Refill Prov:LENIN ANTONIO APRN 8[employer] GRADE TEACHER-C 01/30/18 Ondansetron (ONDANSETRON ODT) 4 Mg Tab.rapdis, 1 TAB PO Q12H, #30 TAB 0 Refills Prov:LENIN ANTONIO APRN 8[employer] GRADE TEACHER-C 01/29/18 Oxycodone Hcl 20 Mg Tab (OXYCODONE HCL 20 MG TAB) 20 Mg Tablet, 1 TAB PO Q6H Y for PAIN, #120 TAB 0 Refills Prov:LENIN ANTONIO APRN 8[employer] GRADE TEACHER-C 01/23/18 Tigecycline (TYGACIL) 50 Mg Vial, 50 MG IV Q12H, #56 VIAL Prov:RODRIGO BARRIGA DO 01/11/18 Insulin Glargine 100 Un/Ml Pen (LANTUS SOLOSTAR PEN) 100 Unit/1 Ml Insuln.pen, 55 UNIT SUBQ QAM, #3 ML Prov:RODRIGO BARRIGA DO 01/11/18 Insulin Glargine 100 Un/Ml Pen (LANTUS SOLOSTAR PEN) 100 Unit/1 Ml Insuln.pen, 25 UNIT SUBQ QHS, #3 ML Prov:RODRIGO BARRIGA DO 01/11/18 Insulin Aspart 100 Un/Ml Pen (NOVOLOG FLEXPEN) 100 Unit/1 Ml Insuln.pen, 20 UNIT SUBQ TIDAC, #3 ML Prov:RODRIGO BARRIGA DO 01/11/18 Furosemide (FUROSEMIDE) 40 Mg Tablet, 40 MG PO QDAY, #30 TAB Prov:RODRIGO BARRIGA DO 01/11/18 Pantoprazole Sodium (PANTOPRAZOLE SODIUM) 40 Mg Tablet.dr, 40 MG PO HS, #90 TAB.SR 1 Refill Prov:JOHN DUQUE MD 12/21/17 Magnesium Oxide (MAGNESIUM OXIDE) 400 Mg Tablet, 1 TAB PO DAILY, #180 TAB 2 Refills Prov:JOHN DUQUE MD 12/21/17 [Ostomy Supplies] No Conflict Check Prov:LENIN ANTONIO APRN 12/21/17 NYSTATIN 748686 UNT/ML Topical Cream (NYSTATIN 682570 UNT/ML Topical Cream) 15 Gm Cream..g., 1 JAEL TP BID, #120 GM 2 Refills Apply to yeast infection twice daily until resolved then treat the area once daily M, W, F Prov:LENIN ANTONIO APRN-Mario 12/19/17 Trazodone Hcl (TRAZODONE HCL) 50 Mg Tablet, 50 MG PO QHS, #90 TAB 1 Refill Prov:LENIN ANTONIO APRN 12/05/17 Atorvastatin Calcium (ATORVASTATIN CALCIUM) 40 Mg Tablet, 1 TAB PO QHS, #90 TAB 1 Refill Prov:LENIN ANTONIO APRN-Mario 04/12/17 Metoprolol Succinate (TOPROL XL) 50 Mg Tab.er.24h, 0.5 TAB PO QDAY, #30 TAB 5 Refills Prov:LENIN ANTONIO APRN 03/20/17 Reported Medications Oxygen (OXYGEN) Inha, 2 L INH, L 12/26/17 Duloxetine Hcl (CYMBALTA) 30 Mg Capsule.dr, 30 MG PO QDAY, #5 CAP 12/21/17 Lactose-Free Food (ENSURE CLEAR) 296 Ml Liquid, 296 ML PO HS 12/21/17 Morphine Sulfate 15 Mg Er Tab (MORPHINE SULFATE 15 MG ER TAB) 15 Mg Tablet.er, 1 TAB PO Q12H 12/05/17 Aspirin (ASPIRIN) 81 Mg Tab.chew, 81 MG PO QDAY, TAB.CHEW 12/02/17 Discontinued Scripts Cefadroxil Hydrate (CEFADROXIL) 500 Mg Capsule, 500 MG PO BID, #60 CAPSULE Start after IV abx are complete. Prov:RODRIGO BARRIGA DO 01/11/18 Cefepime Hcl (CEFEPIME HCL) 2 Gm Vial, 2 GM IVP Q12H, #56 VIAL Prov:RODRIGO BARRIGA DO 01/11/18 Past Medical/Surgical History Insulin diabetes, cellulitis, spina bifida MOBILE TESTER shunt, CAD status post stent 2 years ago, morbid obesity, colostomy, chronic indwelling Muñoz Hx Smoking: No Smoking Status: Never Smoker Exposure to Second Hand Smoke?: Yes Hx Substance Use Disorder: No Hx Alcohol Use: Yes Constitutional Vital Sign - Last 24 Hours 02/18/18 02/18/18 02/18/18 02/18/18 20:26 20:30 20:30 20:41 Temp 99.2 Pulse ??? 128 125 Resp 18 29 B/P (MAP) 116/62 116/62 (80) Pulse Ox 91 90 O2 Delivery Nasal Cannula 02/18/18 02/18/18 02/18/18 02/18/18 20:45 21:00 21:11 21:16 Pulse 124 125 Resp 19 15 B/P (MAP) 95/60 (72) Pulse Ox 94 94 O2 Flow Rate 4.0 02/18/18 02/18/18 02/18/18 02/18/18 21:25 21:30 21:31 21:36 Pulse 125 127 Resp 13 17 B/P (MAP) 86/63 (71) 97/72 (80) Pulse Ox 95 97 02/18/18 02/18/18 02/18/18 02/18/18 21:45 21:51 22:00 22:06 Pulse 118 119 Resp 14 34 B/P (MAP) 106/67 (80) 116/60 (78) Pulse Ox 97 97 02/18/18 02/18/18 02/18/18 02/18/18 22:15 22:21 22:28 22:30 Pulse 119 Resp 11 B/P (MAP) 147/110 (122) 110/77 (88) 108/71 (83) Pulse Ox 96 02/18/18 02/18/18 02/18/18 02/18/18 22:36 22:41 22:45 22:56 Pulse 119 119 116 Resp 16 14 16 B/P (MAP) 109/73 (85) Pulse Ox 96 96 96 02/18/18 02/18/18 02/18/18 02/18/18 23:00 23:11 23:15 23:26 Pulse ??? 115 Resp 9 B/P (MAP) ???/??? (8176) 112/68 (83) 02/18/18 02/18/18 02/18/18 02/18/18 23:30 23:41 23:45 23:56 Pulse 118 122 Resp 18 13 B/P (MAP) 110/64 (79) 108/61 (77) 02/19/18 02/19/18 02/19/18 02/19/18 00:01 00:15 00:16 00:30 Pulse 125 140 Resp 15 30 B/P (MAP) 118/85 (96) 104/72 (83) Pulse Ox 91 90 02/19/18 02/19/18 02/19/18 02/19/18 00:45 00:46 01:00 01:15 Pulse 130 Resp 16 B/P (MAP) 114/77 (89) 109/67 (81) ???/??? (7131) Pulse Ox 92 02/19/18 02/19/18 02/19/18 02/19/18 01:16 01:30 01:31 01:45 Pulse ? Resp 13 B/P (MAP) 110/68 (82) 115/69 (84) Pulse Ox 92 02/19/18 02/19/18 02/19/18 02/19/18 01:46 01:51 02:00 02:06 Pulse 125 116 118 Resp 21 16 17 B/P (MAP) 109/64 (79) 02/19/18 02/19/18 02/19/18 02/19/18 02:21 02:36 02:45 02:51 Pulse 123 110 111 Resp 0 B/P (MAP) ???/??? (1668) Pulse Ox 93 93 02/19/18 02/19/18 02/19/18 02/19/18 03:00 03:06 03:08 03:15 Pulse 114 Resp 14 B/P (MAP) ???/??? (1664) 102/63 (76) 116/89 (98) Pulse Ox 92 02/19/18 02/19/18 02/19/18 02/19/18 03:21 03:26 03:30 03:41 Pulse 115 110 111 Resp 12 13 B/P (MAP) 116/67 (83) Pulse Ox 93 94 02/19/18 02/19/18 02/19/18 02/19/18 03:56 04:00 04:11 04:26 Pulse 121 118 118 Resp 16 13 16 B/P (MAP) 104/80 (88) Pulse Ox 94 95 02/19/18 04:31 Pulse 115 Resp 0 Physical Exam General Appearance: The patient is alert, has no immediate need for airway protection and no signs of toxicity. Eyes: Pupils equal and round no pallor or injection. ENT, Mouth: Mucous membranes are moist. Respiratory: There are no retractions, lungs are clear to auscultation. Cardiovascular: Tachycardia, regular. Gastrointestinal: Mild diffuse abdominal tenderness, morbid obesity. Neurological: Alert and oriented 3, no motor or sensory deficits. Skin: Warm and dry, no rashes. Musculoskeletal: Moderate bilateral pedal edema left greater than right. Left calf tenderness DIFFERENTIAL DIAGNOSIS: After history and physical exam differential diagnosis was considered for chest pain including but not limited to myocardial ischemia, pericarditis pulmonary embolus, chest wall pain, cholecystitis, pancreatitis, pleural inflammation and pulmonary infectious causes. Medical Decision Making Data Points Result Diagram: 02/18/18204202/18/182042 Laboratory Hematology Test 02/18/18 20:43 02/19/18 00:49 02/19/18 02:20 02/19/18 03:10 Red Blood Count 4.79 M/uL (4.00-5.60) Mean Corpuscular Volume 71.5 fL (80.0-96.0) Mean Corpuscular Hemoglobin 23.3 pg (26.0-33.0) Mean Corpuscular Hemoglobin Concent 32.7 g/dL (32.0-36.0) Red Cell Distribution Width 21.3 % (11.5-14.5) Mean Platelet Volume 6.9 fL (7.2-11.1) Neutrophils (%) (Auto) 72.8 % (39.4-72.5) Lymphocytes (%) (Auto) 17.4 % (17.6-49.6) Monocytes (%) (Auto) 5.6 % (4.1-12.4) Eosinophils (%) (Auto) 3.8 % (0.4-6.7) Basophils (%) (Auto) 0.4 % (0.3-1.4) Nucleated RBC Relative Count (auto) 0.0 /100WBC Neutrophils # (Auto) 5.1 K/uL (2.0-7.4) Lymphocytes # (Auto) 1.2 K/uL (1.3-3.6) Monocytes # (Auto) 0.4 K/uL (0.3-1.0) Eosinophils # (Auto) 0.3 K/uL (0.0-0.5) Basophils # (Auto) 0.0 K/uL (0.0-0.1) Nucleated RBC Absolute Count (auto) 0.00 K/uL Peripheral Blood Smear Y/N Prothrombin Time 16.5 seconds (12.0-14.4) Prothromb Time International Ratio 1.31 Activated Partial Thromboplast Time 34 seconds (23-35) D-Dimer Quantitative (PE/DVT) 0.41 ug/ml (0-0.50) Sodium Level 129 mmol/L (137-145) Potassium Level 4.1 mmol/L (3.5-5.0) Chloride Level 89 mmol/L (98-107) Carbon Dioxide Level 28 mmol/L (22-30) Blood Urea Nitrogen 16 mg/dl (9-21) Creatinine 0.60 mg/dl (0.66-1.25) Glomerular Filtration Rate Calc > 60.0 Random Glucose 432 mg/dl (75-110) Calcium Level 7.9 mg/dl (8.4-10.2) Total Bilirubin 0.2 mg/dl (0.2-1.3) Aspartate Amino Transf (AST/SGOT) 27 U/L (0-35) Alanine Aminotransferase (ALT/SGPT) 38 U/L (0-56) Alkaline Phosphatase 365 U/L (0-126) B-Type Natriuretic Peptide 54 pg/ml (0-100) Total Protein 6.3 gm/dl (6.3-8.2) Albumin 3.1 g/dl (3.5-5.0) Lipase 79 U/L (23-300) Troponin I < 0.012 ng/ml Lactate 1.4 mmol/L (0.7-2.1) Whole Blood Glucose 122 mg/DL (75-110) Chemistry Test 02/18/18 20:43 5/7/18 00:49 02/19/18 02:20 02/19/18 03:10 White Blood Count 6.9 k/uL (4.5-11.0) Red Blood Count 4.79 M/uL (4.00-5.60) Hemoglobin 11.2 g/dL (14.0-18.0) Hematocrit 34.3 % (42.0-52.0) Mean Corpuscular Volume 71.5 fL (80.0-96.0) Mean Corpuscular Hemoglobin 23.3 pg (26.0-33.0) Mean Corpuscular Hemoglobin Concent 32.7 g/dL (32.0-36.0) Red Cell Distribution Width 21.3 % (11.5-14.5) Platelet Count 339 K/uL (150-450) Mean Platelet Volume 6.9 fL (7.2-11.1) Neutrophils (%) (Auto) 72.8 % (39.4-72.5) Lymphocytes (%) (Auto) 17.4 % (17.6-49.6) Monocytes (%) (Auto) 5.6 % (4.1-12.4) Eosinophils (%) (Auto) 3.8 % (0.4-6.7) Basophils (%) (Auto) 0.4 % (0.3-1.4) Nucleated RBC Relative Count (auto) 0.0 /100WBC Neutrophils # (Auto) 5.1 K/uL (2.0-7.4) Lymphocytes # (Auto) 1.2 K/uL (1.3-3.6) Monocytes # (Auto) 0.4 K/uL (0.3-1.0) Eosinophils # (Auto) 0.3 K/uL (0.0-0.5) Basophils # (Auto) 0.0 K/uL (0.0-0.1) Nucleated RBC Absolute Count (auto) 0.00 K/uL Peripheral Blood Smear Y/N Prothrombin Time 16.5 seconds (12.0-14.4) Prothromb Time International Ratio 1.31 Activated Partial Thromboplast Time 34 seconds (23-35) D-Dimer Quantitative (PE/DVT) 0.41 ug/ml (0-0.50) Glomerular Filtration Rate Calc > 60.0 Calcium Level 7.9 mg/dl (8.4-10.2) Total Bilirubin 0.2 mg/dl (0.2-1.3) Aspartate Amino Transf (AST/SGOT) 27 U/L (0-35) Alanine Aminotransferase (ALT/SGPT) 38 U/L (0-56) Alkaline Phosphatase 365 U/L (0-126) B-Type Natriuretic Peptide 54 pg/ml (0-100) Total Protein 6.3 gm/dl (6.3-8.2) Albumin 3.1 g/dl (3.5-5.0) Lipase 79 U/L (23-300) Troponin I < 0.012 ng/ml Lactate 1.4 mmol/L (0.7-2.1) Whole Blood Glucose 122 mg/DL (75-110) Coagulation Test 02/18/18 20:43 Prothrombin Time 16.5 seconds Prothromb Time International Ratio 1.31 Activated Partial Thromboplast Time 34 seconds D-Dimer Quantitative (PE/DVT) 0.41 ug/ml EKG/Imaging EKG Interpretation 12 lead EK02/18/2018 8:43:52 pm Rhythm: Sinus tachycardia rate 128. [place]: normal QRS: normal ST segments: normal P waves normal Imaging X-ray: Chest was obtained. I viewed the images myself on the PACS system. My interpretation of the images is: Pulmonary vascular congestion without cardiomegaly, no infiltrate. The radiologist interpretation had no clinically significant variation from this interpretation. Results: Ultrasound of the bladder was obtained. The results of the study are unremarkable gallbladder and bile ducts, hepatic steatosis. The study was read by the radiologist. I viewed the images myself on the PACS system. Results: CT scan of the chest with contrast was obtained. The results of the study are no PE, subtle groundglass nodularity in upper lobes. The study was read by the radiologist. I viewed the images myself on the PACS system. ED Course/Re-evaluation ED Course Patient's EKG shows only sinus tachycardia no evidence of acute ischemia. Troponins negative 2. Chest x-ray shows mild basilar congestion but no consolidation. Labs note normal d-dimer and white count, elevated glucose, sodium is consistent with pseudo-hyponatremia. Alkaline phosphatase was elevated , bili, transaminases and lipase normal, patient has right upper quadrant tenderness raising concern for cholecystitis. Ultrasound of gallbladder was obtained and shows no acute abnormality. Patient was hospitalized for cellulitis a couple months ago and he continues to complain of pleuritic sharp chest pain, heart rate is 120 and he is hypoxic requiring 4 L instead of his usual 2 L. This raises concern for PE even though his d-dimer was normal. CTA chest was obtained that showed no PE, however subtle groundglass opacities in bilateral upper lobes are noted, possible infectious versus inflammatory process. A small amount of IV contrast also extravasated from his right shoulder IV. Warm compresses were applied. The area was observed and there is no evidence of tissue necrosis. He was given Rocephin and Zithromax for possible pneumonia based on CT findings. Blood cultures were sent, lactate is normal. He was given his home dose of 20 units of NovoLog and IV fluid, his glucose decreased significantly from 400 to 66 and he was given food and his glucose became stable in the low 100s. His heart rate began to improve with IV bolus. He began to complain of increased work of breathing, there was concern for CHF induced by IV hydration. However repeat x-ray was obtained that again showed no acute process. His chest pain improved with Dilaudid, however he then complained of a headache. Given Compazine to try and treat this. His blood pressure returned to baseline and his heart rate improved significantly after 1.5 L of NS. He was titrated down to his usual home O2 of 2 L. Patient had a thorough workup in the emergency department with improvement of his symptoms. His tachycardia seems secondary to dehydration from hyperglycemia. He is tolerating PO, his pain is improved. We treat community acquired pneumonia with Z-Kenneth and 5 day course of Ceftin as outpatient. Patient was instructed to follow his primary care doctor. Decision to Disposition Date: February 19, 2018 Decision to Disposition Time: 04:34 Depart Departure Latest Vital Signs Vital Signs Date Time Temp Pulse Resp B/P (MAP) Pulse Ox O2 Delivery O2 Flow Rate FiO2 02/19/18 04:31 115 0 02/19/18 04:11 95 02/19/18 04:00 104/80 (88) 02/18/18 20:45 4.0 02/18/18 20:30 99.2 Nasal Cannula Impression: Primary Impression: Hyperglycemia due to type 2 diabetes mellitus Additional Impressions: Pneumonia Tachycardia Dehydration, moderate Headache Condition: Improved Disposition: HOME OR SELF-CARE Referrals: SANDRA-RICE,LENIN VESSEL WELDER 8TH GRADE TEACHER-C (PCP) New Scripts Azithromycin 250 Mg Tab (AZITHROMYCIN 250 MG TAB) 250 Mg Tablet 1 TAB PO QDAY for 4 Days, #4 TAB Prov: ANDER CAMPOS MD 02/19/18 Cefuroxime Axetil (CEFUROXIME) 500 Mg Tablet 500 MG PO BID for 5 Days, #10 TAB Prov: ANDER CAMPOS MD 02/19/18 Patient Instructions: Community Acquired Pneumonia (DC), Dehydration (ED), Diabetic Hyperglycemia (ED) Additional Instructions: Start antibiotics tonight. Drink plenty of fluids, follow-up with her primary care doctor. Problem Qualifiers Primary Impression: Hyperglycemia due to type 2 diabetes mellitus Diabetes mellitus exterminator insulin use: with detention use Qualified Codes: E11.65 - Type 2 diabetes mellitus with hyperglycemia; Z79.4 - prison ( current) use of insulin Additional Impressions: Pneumonia Pneumonia type: due to unspecified organism Laterality: bilateral Lung location: upper lobe of lung Qualified Codes: J18.1 - Lobar pneumonia, unspecified organism Headache Headache type: unspecified Headache chronicity pattern: acute headache Intractability: not intractable Qualified Codes: R51 - Headache ANDER CAMPOS MD February 18, 2018 20:44
[2018-02-18 20:49] LABS: PLATELET COUNT, AUTOMATED 339 K/uL (150-450)
[2018-02-18] MEDS ORDERED: MORPHINE 4 MG/ML SDV IVP ONE ×2 (20:50→22:25)
[2018-02-18 20:59] LABS: INR 1.31
[2018-02-18] MEDS ORDERED: ONDANSETRON 4 MG/2 ML VIAL ONE (21:08)
--- NOTE | 2018-02-18 21:11 | EKG ---
FACILITY: [facility] PATIENT NAME: GEORGE ROY : [id number] MR: [id number] V: [id number] EXAM DATE: ORDERING PHYSICIAN: ANDER CAMPOS TECHNOLOGIST: JIM Test Reason : CHEST PAIN Blood Pressure : / mmHG Vent. Rate : 128 BPM Atrial Rate : 128 BPM P-R Int : 126 ms QRS Dur : 074 ms QT Int : 320 ms P-R-T Axes : 070 106 068 degrees QTc Int : 467 ms Sinus tachycardia Rightward axis Borderline ECG No previous ECGs available Confirmed by JOHN HOLT ([id number]) on 02/19/2018 7:08:40 AM Referred By: Confirmed By:JOHN HOLT
--- NOTE | 2018-02-18 21:19 | RADIOLOGY IMAGING REPORT ---
FACILITY: [facility] - [place] PATIENT NAME: Rodrigue Phillips : 1960 MR: [id number] V: [id number] EXAM DATE: ORDERING PHYSICIAN: ANDER CAMPOS TECHNOLOGIST: Location: [facility] [place] Patient: Rodrigue Phillips : 1960 Visit/Account:[id number] Date of Sevice: 02/18/2018 CHEST PA AND LAT History: Chest pain Comparison 12/21/2017. FINDINGS: Overlie pulmonary vascular congestion. No consolidation. No gross effusion. No evidence of pneumothor ax. Heart size within normal limits. CERTIFIED SUBSTANCE ABUSE COUNSELOR shunt tubing partially visualized. IMPRESSION: Borderline pulmonary vascular congestion. Report Dictated By: Vipin Albert MD at 02/18/2018 9:14 PM Report E-Signed By: Vipin Albert MD at 02/18/2018 9:15 PM WSN:[id number]
[2018-02-18] MEDS ORDERED: NS(*) 0.9% 500 ML BAG 500 ML IV ONE (21:25)
[2018-02-18] MEDS ORDERED: MORPHINE 4 MG/ML SDV ONE (22:25)
[2018-02-18] MEDS ORDERED: NS(*) 0.9% 1000 ML BAG 1,000 ML IV ONE (22:35)
[2018-02-18] MEDS ORDERED: INSULIN ASPART 100 UN/ML VIAL SUBQ ONE (22:35)
--- NOTE | 2018-02-18 22:53 | RADIOLOGY IMAGING REPORT ---
FACILITY: [facility] PATIENT NAME: Rodrigue Phillips : 1960 MR: [id number] V: [id number] EXAM DATE: ORDERING PHYSICIAN: ANDER CAMPOS TECHNOLOGIST: Location: [facility] Patient: Rodrigue Phillips : 1960 Visit/Account:[id number] Date of Sevice: 02/18/2018 EXAMINATION: Right upper quadrant abdominal ultrasound HISTORY: Abdominal pain. COMPARISON: 07/26/2017. FINDINGS: Technically limited exam due to patient body habitus. Liver: Fatty infiltration of the liver with hepatomegaly. The liver measures 19 cm in length. No fo robin liver lesions identified. Antegrade flow is visualized in the main portal vein. Gallbladder: Normal sonographic appearance of the gallbladder, without evidence of stones or sludge. No gallbladder wall thickening or pericholecystic fluid. Negative sonographic Lara sign. Bile Ducts: No biliary ductal dilatation. The common duct measures 6 mm. Pancreas: Poorly visualized, obscured by overlying bowel gas. Right kidney: Normal echogenicity of the right kidney. The renal cortical parenchyma is maintained. N o hydronephrosis. The right kidney measures 11.5 cm in length. Aorta: Patent and normal in caliber. IVC: Patent. Ascites: None. IMPRESSION: 1. Unremarkable gallbladder and bile ducts. No visualized gallstones. 2. Hepatic steatosis. 3. Poor visualization of the pancreas. Report Dictated By: Jordan Beasley MD at 02/18/2018 10:45 PM Report E-Signed By: Jordan Beasley MD at 02/18/2018 10:49 PM WSN:[id number]
[2018-02-18] MEDS ORDERED: IOPAMIDOL 76% 100 ML INFUS BTL 100 ML ONE (22:55)
[2018-02-18] MEDS ORDERED: NS 0.9% 150 ML BAG 150 ML ONE (22:55)
--- NOTE | 2018-02-18 23:46 | RADIOLOGY IMAGING REPORT ---
[place] [facility] [place] NAME: Rodrigue Phillips : 1960 MR: [id number] V: [id number] EXAM DATE: ORDERING PHYSICIAN: ANDER CAMPOS TECHNOLOGIST: Location: [facility] Patient: Rodrigue Phillips : 1960 Visit/Account:[id number] Date of Sevice: 02/18/2018 CT PE DATE: 02/18/2018 11:33 PM INDICATION: Chest pain. COMPARISON: 02/18/2018 radiographs, 10/20/2017 CT PE. TECHNIQUE: Axial CT angiogram was obtained through the chest with intravenous contrast. Sagittal an d coronal MPR and MIP coronal reformations were also generated. 100 mL isovue 370. One of the [employer]ther[employer] dose optimization techniques was utilized in the performance of this exam: Automated exposure co ntrol; adjustment of the mA and/or kV according to the patient's size; or use of an iterative recons truction technique. Specific details can be referenced in the facility's radiology CT exam operation al policy. FINDINGS: Thyroid / Thoracic Inlet: No visualized thyroid nodule or supraclavicular lymphadenopathy. Pulmonary Arteries: Somewhat limited examination of the pulmonary arteries beyond the segmental leve l part due to body habitus. No demonstrated pulmonary embolism. Heart and Aorta: Normal-size heart with no significant pericardial effusion. Coronary artery calcif ications and/or stents. Nonaneurysmal thoracic aorta. Mediastinum and Daisy: Mildly enlarged mediastinal and hilar lymph nodes have decreased in size since October and are likely reactive. Lungs and Pleura: No pleural effusion or pneumothorax. Mild atelectasis. Subtle groundglass nodula rity in the upper lobes is likely infectious/inflammatory, and there is lower lobe predominant bronch ial wall thickening as well as bronchiectasis. Other nodules described on the prior CT have resolved . Breast and Axilla: No axillary lymphadenopathy. Gynecomastia. Upper Abdomen: No visualized acute abnormality. Bones and Soft Tissues: No suspicious osseous or soft tissue abnormality. IMPRESSION: 1. Mildly limited examination with no demonstrated pulmonary embolism. 2. Subtle groundglass nodularity in the upper lobes is likely infectious or inflammatory, as is bron chial wall thickening in the lower lobes. 3. Coronary artery calcifications and/or stents. Report Dictated By: Grover Roth MD at 02/18/2018 11:29 PM Report E-Signed By: Grover Roth MD at 02/18/2018 11:43 PM WSN:[id number]
--- NOTE | 2018-02-19 01:45 | RADIOLOGY IMAGING REPORT ---
FACILITY: [facility] - [place] PATIENT NAME: Rodrigue Phillips : 1960 MR: [id number] V: [id number] EXAM DATE: ORDERING PHYSICIAN: ANDER CAMPOS TECHNOLOGIST: Location: [facility] Patient: Rodrigue Phillips : 1960 Visit/Account:[id number] Date of Sevice: 02/19/2018 CHEST PA AND LATERAL 02/19/2018 1:06 AM. INDICATION: RAD REPEAT FOR SOB COMPARISON: Chest radiographs and CT PE 02/18/2018. FINDINGS: Patient is tilted to the right. Lungs are overall well-expanded. Subtle groundglass in th e upper lobes is not well demonstrated. No pneumothorax or pleural effusion. Pulmonary vasculature is unremarkable. Heart size is normal. Right-sided ventriculostomy shunt terminates in the superior vena cava. IMPRESSION: Subtle upper lobe groundglass nodularity seen on CT is not well demonstrated. No other a cute cardiopulmonary abnormality or significant change. Report Dictated By: Grover Roth MD at 02/19/2018 1:38 AM Report E-Signed By: Grover Roth MD at 02/19/2018 1:42 AM WSN:[id number]
[2018-02-19] MEDS ORDERED: cefTRIAXone 2 GM VIAL IVP ONE (01:55)
[2018-02-19] MEDS ORDERED: HYDROmorphone* 1 MG/ML 1 MG/ML ML IM ONE (01:55)
[2018-02-19] MEDS ORDERED: AZITHROMYCIN 250 MG TAB PO ONE (01:55)
[2018-02-19] MEDS ORDERED: cefTRIAXone 1 GM VIAL IVP ONE (02:05)
[2018-02-19] MEDS ORDERED: NS(*) 0.9% 1000 ML BAG 1,000 ML IV ONE (02:05)
[2018-02-19] MEDS ORDERED: NS(*) 0.9% 100 ML BAG 100 ML ONE (02:35)
[2018-02-19 04:00] VITALS: BP 104/80
[2018-02-19] MEDS ORDERED: PROCHLORPERAZINE MAL 5 MG TAB PO ONE (04:10)
[2018-02-19] MEDS ORDERED: AZIT-18 PO (04:25)
[2018-02-19] MEDS ORDERED: CEFU500T10 PO (04:25)
[2018-02-21] MEDS ORDERED: ATOR40TA69 PO (14:25)
== END 2018-02-19 05:02 | disposition home or self-care (01) ==
LOC: ER 20:33
DX: E11.65 Type 2 diabetes mellitus with hyperglycemia (principal); J18.1 Lobar pneumonia, unspecified organism; R00.0 Tachycardia, unspecified; E86.0 Dehydration; R51 Headache; Z79.4 Long term (current) use of insulin
CPT/HCPCS: 36415; 36416; 71046; 71275; 76705; 82948; 83605; 83690; 83880; 84484; 85025; 85379; 85610; 85730; 87040; 93005; 96361; 96365; 96372; 96375; 96376; 99284; J0696; J1170; J1815; J2270; J2405; J7030; J7040; J7050; Q0144; Q0164; Q9967; 82040; 82247; 82310; 82374; 82435; 82565; 82947; 84075; 84132; 84155; 84295; 84450; 84460; 84520

== ENCOUNTER → 2018-02-18 | Outpatient (REF) | payer MEDICARE, MEDICAID ==
[2017-12-26 12:06] VITALS: BMI 48.4
[~2018-02-18] MED LIST changes: +AZIT-18 PO; +CEFU500T10 PO
[2018-02-18 20:48] LABS: INR 1.28
== END ==
LOC: ZZSENDIN 20:36
PROVIDERS: ATTEND Nurse Practitioner Family
DX: Z79.810 Long term (current) use of selective estrogen receptor modulators (SERMs) (principal)
CPT/HCPCS: 85610

== ENCOUNTER → 2018-02-18 | Outpatient (CLI) | payer MEDICARE, MEDICAID ==
[2017-12-26 12:06] VITALS: BMI 48.4
[~2018-02-18] MED LIST changes: -CITA-139 PO; +CITA-145 PO; -METF-410 PO; +METF-411 PO; -METF-420 PO; +METF-421 PO; -OXYC-375 PO; +OXYC1TAB78 PO
== END ==
LOC: AMB 20:09
PROVIDERS: ATTEND Nurse Practitioner
DX: R07.9 Chest pain, unspecified (principal)
CPT/HCPCS: A0425; A0427

== ENCOUNTER → 2018-02-19 | Outpatient (CLI) | payer MEDICARE, MEDICAID ==
[2017-12-26 12:06] VITALS: BMI 48.4
[~2018-02-19] MED LIST changes: +AZIT-18 PO; +CEFU500T10 PO; -CITA-139 PO; +CITA-145 PO; -METF-410 PO; +METF-411 PO; -METF-420 PO; +METF-421 PO; -OXYC-375 PO; +OXYC1TAB78 PO
== END ==
LOC: AMB 05:08
PROVIDERS: ATTEND Nurse Practitioner
DX: J18.9 Pneumonia, unspecified organism (principal)
CPT/HCPCS: A0425; A0428

== ENCOUNTER → 2018-02-20 | Outpatient (REF) | payer MEDICARE, MEDICAID ==
[2017-12-26 12:06] VITALS: BMI 48.4
[~2018-02-20] MED LIST changes: +CITA-139 PO; -CITA-145 PO; +METF-410 PO; -METF-411 PO; +METF-420 PO; -METF-421 PO; +OXYC-375 PO; -OXYC1TAB78 PO
== END ==
LOC: ZZSENDIN 22:37
PROVIDERS: ATTEND Nurse Practitioner Family
DX: Z79.01 Long term (current) use of anticoagulants (principal)
CPT/HCPCS: 85027

== ENCOUNTER 2018-03-05 14:00 | Emergency (ER) | payer MEDICARE, MEDICAID ==
[2017-12-26 12:06] VITALS: Wt 120.5 kg
[~2018-03-05 14:00] MED LIST changes: -CITA-139 PO; +CITA-145 PO; -METF-410 PO; +METF-411 PO; -METF-420 PO; +METF-421 PO; -OXYC-375 PO; +OXYC1TAB78 PO
--- NOTE | 2018-03-05 14:12 | ER Report ---
History and Physical Time Seen By MD: 14:09 (JOHN HENDRICKS MD) HPI/ROS CHIEF COMPLAINT: Near syncopal episodes HISTORY OF PRESENT ILLNESS: Patient is a 57-year-old male with multiple medical problems who presents emergency Department from referral from his primary care provider Larry Arriaga for evaluation of "staring spells". Patient be treated for cellulitis of months ago as an inpatient. Was also seen in the beginning of February for pleuritic type chest pain patient has known history of PE and WA in the past. During that visit he ruled out for WA with serial troponins a d-dimer was negative but he did have a CT angiogram to rule out PE which was also negative. Patient was seen in follow-up by Larry Arriaga today she had Some concerns that the patient is "having staring episodes. states that the patient has been "passing out". He is complaining of pleuritic chest pain and shortness of breath that is worse than usual but has been persistent for days. Patient was recently seen on February 19 was diagnosed with a pneumonia at that time based on the CT scan finding of a ground glass appearance to the chest. Patient however ruled out for WA based on serial troponins and negative CTA of the chest for PE. Patient is currently on Coumadin and reports an INR of 7 at his last visit, however review sheet the electronic medical record shows the patient most recent INR on February 18 was 1.3. Patient is a poor historian. And has had prior visits in the past for similar episodes. REVIEW OF SYSTEMS: Constitutional: No fever, no chills. Generalized weakness Eyes: No discharge. ENT: No sore throat. Cardiovascular: Pleuritic chest pain. Respiratory: Dyspnea without cough. Gastrointestinal: No abdominal pain, no vomiting. Genitourinary: No hematuria. Musculoskeletal: No back pain. Skin: No rashes. Neurological: Generalized headache. (JOHN HENDRICKS MD) Allergies: Coded Allergies: vancomycin (Verified Allergy, Severe, Respiratory arrest due to bronchospasm, 12/21/17) Respiratory arrest due to bronchospasm ciprofloxacin (Verified Allergy, Intermediate, TINGLING, 12/21/17) clindamycin (Verified Allergy, Intermediate, RASH, 12/21/17) perflutren (Verified Adverse Reaction, Severe, Respiratory Arrest, 12/21/17) amoxicillin (Verified Adverse Reaction, Mild, N/V/D, 3/8/18) 07/2017: Pt tolerated Unasyn without difficulty clavulanic acid (Verified Adverse Reaction, Mild, N/V/D, 12/21/17) Uncoded Allergies: contrast definity (Allergy, Severe, MENTAL STATUS CHANGES, 08/15/17) went unresponsive Home Meds Active Scripts Ondansetron (ONDANSETRON ODT) 4 Mg Tab.rapdis, 1 TAB PO Q12H, #30 TAB 0 Refills Prov:LENIN ANTONIO APRNP-C 02/26/18 Oxycodone Hcl 20 Mg Tab (OXYCODONE HCL 20 MG TAB) 20 Mg Tablet, 1 TAB PO Q6H Y for PAIN, #120 TAB 0 Refills Prov:LENIN ANTONIO APRN-C 02/26/18 Atorvastatin Calcium (ATORVASTATIN CALCIUM) 40 Mg Tablet, 1 TAB PO QHS, #90 TAB 1 Refill Prov:LENIN ANTONIO APRN-C 02/21/18 Azithromycin 250 Mg Tab (AZITHROMYCIN 250 MG TAB) 250 Mg Tablet, 1 TAB PO QDAY for 4 Days, #4 TAB Prov:ANDER CAMPOS MD 02/19/18 Cefuroxime Axetil (CEFUROXIME) 500 Mg Tablet, 500 MG PO BID for 5 Days, #10 TAB Prov:ANDER CAMPOS MD 02/19/18 Ferrous Sulfate (FERROUS SULFATE) 325 Mg Tablet, 1 TAB PO BID, #180 TAB 0 Refills Prov:LENIN ANTONIO APRN-C 02/06/18 Gabapentin (GABAPENTIN) 600 Mg Tablet, 600 MG PO TID, #270 TAB 1 Refill Prov:LENIN ANTONIO APRNP-C 02/05/18 Warfarin Sodium (COUMADIN) 5 Mg Tablet, 1-1.5 TAB PO QDAY@13, #45 TAB 5 Refills 1.5 tabs every monday and 1 tab all other days Prov:LENIN ANTONIO APRNP-C 01/31/18 Lactobacillus Rhamnosus Gg (CULTURELLE) 1 Each Capsule, 1 EACH PO NOON, #30 CAPSULE 0 Refills Prov:LENIN ANTONIO APRNP-C 01/30/18 Amitriptyline Hcl (AMITRIPTYLINE HCL) 25 Mg Tablet, 25 MG PO QHS, #90 TAB 1 Refill Prov:LENIN ANTONIO APRN 01/30/18 Tigecycline (TYGACIL) 50 Mg Vial, 50 MG IV Q12H, #56 VIAL Prov:RODRIGO BARRIGA DO 01/11/18 Insulin Glargine 100 Un/Ml Pen (LANTUS SOLOSTAR PEN) 100 Unit/1 Ml Insuln.pen, 55 UNIT SUBQ QAM, #3 ML Prov:RODRIGO BARRIGA DO 01/11/18 Insulin Glargine 100 Un/Ml Pen (LANTUS SOLOSTAR PEN) 100 Unit/1 Ml Insuln.pen, 25 UNIT SUBQ QHS, #3 ML Prov:RODRIGO BARRIGA DO 01/11/18 Insulin Aspart 100 Un/Ml Pen (NOVOLOG FLEXPEN) 100 Unit/1 Ml Insuln.pen, 20 UNIT SUBQ TIDAC, #3 ML Prov:NITHYARODRIGO CUNNINGHAM DO 01/11/18 Furosemide (FUROSEMIDE) 40 Mg Tablet, 40 MG PO QDAY, #30 TAB Prov:NITHYARODRIGO 01/11/18 Pantoprazole Sodium (PANTOPRAZOLE SODIUM) 40 Mg Tablet.dr, 40 MG PO HS, #90 TAB.SR 1 Refill Prov:JOHN DUQUE MD 12/21/17 Magnesium Oxide (MAGNESIUM OXIDE) 400 Mg Tablet, 1 TAB PO DAILY, #180 TAB 2 Refills Prov:JOHN DUQUE MD 12/21/17 [Ostomy Supplies] No Conflict Check Prov:LENIN ANTONIO APRN 12/21/17 NYSTATIN 339943 UNT/ML Topical Cream (NYSTATIN 114689 UNT/ML Topical Cream) 15 Gm Cream..g., 1 JAEL TP BID, #120 GM 2 Refills Apply to yeast infection twice daily until resolved then treat the area once daily M, W, F Prov:LENIN ANTONIO APRN 12/19/17 Trazodone Hcl (TRAZODONE HCL) 50 Mg Tablet, 50 MG PO QHS, #90 TAB 1 Refill Prov:LENIN ANTONIO APRN 12/05/17 Metoprolol Succinate (TOPROL XL) 50 Mg Tab.er.24h, 0.5 TAB PO QDAY, #30 TAB 5 Refills Prov:LENIN ANTONIO APRN APPLICATION SPECIALIST-C 03/20/17 Reported Medications Oxygen (OXYGEN) Inha, 2 L INH, L 12/26/17 Duloxetine Hcl (CYMBALTA) 30 Mg Capsule.dr, 30 MG PO QDAY, #5 CAP 12/21/17 Lactose-Free Food (ENSURE CLEAR) 296 Ml Liquid, 296 ML PO HS 12/21/17 Morphine Sulfate 15 Mg Er Tab (MORPHINE SULFATE 15 MG ER TAB) 15 Mg Tablet.er, 1 TAB PO Q12H 12/05/17 Aspirin (ASPIRIN) 81 Mg Tab.chew, 81 MG PO QDAY, TAB.CHEW 12/02/17 Past Medical/Surgical History Past medical history for spina bifida, shunt for hydrocephalus placed, history of coronary artery disease, hypertension, history of WA in 2013 and stent in 2015. History of PE history of GERD, history of UTI, history of back pain history of type II diabetes. History of coronary stent 2016 colectomy with colostomy placement in 2013. Review of the electronic medical record shows the patient does have a history of borderline tachycardia going back to February 19 with a rate between 110 and 130 bpm. (JOHN HENDRICKS MD) Hx Smoking: No Smoking Status: Never Smoker Exposure to Second Hand Smoke?: Yes Hx Substance Use Disorder: No Hx Alcohol Use: Yes (JOHN HENDRICKS MD) Constitutional Vital Sign - Last 24 Hours 03/05/18 03/05/18 03/05/18 03/05/18 14:02 14:08 14:15 14:26 Temp 97.8 Pulse 106 108 Resp 12 17 B/P (MAP) 129/95 129/95 (106) Pulse Ox 96 97 O2 Delivery Nasal Cannula O2 Flow Rate 3.0 03/05/18 03/05/18 03/05/18 03/05/18 14:30 15:30 15:45 15:50 Pulse 104 103 ??? 106 Resp 9 0 B/P (MAP) ???/??? (5805) 126/70 (88) Pulse Ox 95 94 95 97 03/05/18 03/05/18 03/05/18 03/05/18 16:00 16:05 16:10 16:25 Pulse 110 111 108 Resp 14 16 7 B/P (MAP) 100/75 (83) Pulse Ox 97 97 99 03/05/18 03/05/18 16:30 16:40 Pulse 109 Resp 27 B/P (MAP) 106/88 (94) Pulse Ox 97 (LAURORA,AIDEE V DO) Physical Exam General/Constitutional: Patient is awake, alert, nontoxic and in no acute respiratory distress. Head: Normocephalic and atraumatic. Eyes: Conjunctival clear, Pupils are equal and reactive to light. Extraocular muscles are intact and symmetrical. Sclera are clear and anicteric. Ears:External canals are clear. Tympanic membranes are clear with normal landmarks and light reflex. Nares: No rhinorrhea or bleeding. Turbinates are pink and moist. Oropharyngeal: Mucous membranes are moist. There is no pharyngeal erythema or exudate. There are no palatal petechiae. Uvula is midline and symmetrical. Neck: Supple, no adenopathy. Cardiovascular: Heart is regular rate and rhythm without audible murmurs, rubs or gallops. Pulmonary: Lungs are clear to auscultation bilaterally. There are no wheezes, rales, or rhonchi. Chest rise is symmetrical Abdomen: Soft, nontender, no guarding or peritoneal signs. Ostomy site is intact Extremities: No gross deformities, No peripheral cyanosis. Able to move all 4 extremities. Neuro: Alert and oriented X3, . Skin: No rashes, skin is warm dry and well perfused. (JOHN HENDRICKS MD) Medical Decision Making Data Points Result Diagram: 03/05/18 1435 03/05/18 1435 Laboratory Hematology Test 03/05/18 14:35 03/05/18 15:20 03/05/18 15:49 03/05/18 17:26 Red Blood Count 5.32 M/uL (4.00-5.60) Mean Corpuscular Volume 70.6 fL (80.0-96.0) Mean Corpuscular Hemoglobin 22.9 pg (26.0-33.0) Mean Corpuscular Hemoglobin Concent 32.5 g/dL (32.0-36.0) Red Cell Distribution Width 21.7 % (11.5-14.5) Mean Platelet Volume 7.0 fL (7.2-11.1) Neutrophils (%) (Auto) 70.2 % (39.4-72.5) Lymphocytes (%) (Auto) 14.2 % (17.6-49.6) Monocytes (%) (Auto) 11.3 % (4.1-12.4) Eosinophils (%) (Auto) 3.7 % (0.4-6.7) Basophils (%) (Auto) 0.6 % (0.3-1.4) Nucleated RBC Relative Count (auto) 0.1 /100WBC Neutrophils # (Auto) 6.3 K/uL (2.0-7.4) Lymphocytes # (Auto) 1.3 K/uL (1.3-3.6) Monocytes # (Auto) 1.0 K/uL (0.3-1.0) Eosinophils # (Auto) 0.3 K/uL (0.0-0.5) Basophils # (Auto) 0.1 K/uL (0.0-0.1) Nucleated RBC Absolute Count (auto) 0.01 K/uL Prothrombin Time 24.1 seconds (12.0-14.4) Prothromb Time International Ratio 2.09 Activated Partial Thromboplast Time 45 seconds (23-35) D-Dimer Quantitative (PE/DVT) 0.56 ug/ml (0-0.50) Sodium Level 132 mmol/L (137-145) Potassium Level 4.0 mmol/L (3.5-5.0) Chloride Level 95 mmol/L (98-107) Carbon Dioxide Level 28 mmol/L (22-30) Blood Urea Nitrogen 12 mg/dl (9-21) Creatinine 0.50 mg/dl (0.66-1.25) Glomerular Filtration Rate Calc > 60.0 Random Glucose 85 mg/dl (75-110) Calcium Level 8.7 mg/dl (8.4-10.2) Total Bilirubin 0.3 mg/dl (0.2-1.3) Aspartate Amino Transf (AST/SGOT) 16 U/L (0-35) Alanine Aminotransferase (ALT/SGPT) 20 U/L (0-56) Alkaline Phosphatase 150 U/L (0-126) B-Type Natriuretic Peptide 45 pg/ml (0-100) Total Protein 7.1 gm/dl (6.3-8.2) Albumin 3.6 g/dl (3.5-5.0) Gastric Fluid pH 5-7 pH Gastric Fluid Occult Blood Negative (NEGATIVE) Whole Blood Glucose 75 mg/DL (75-110) Troponin I < 0.012 ng/ml Chemistry Test 03/05/18 14:35 03/05/18 15:20 03/05/18 15:49 03/05/18 17:26 White Blood Count 8.9 k/uL (4.5-11.0) Red Blood Count 5.32 M/uL (4.00-5.60) Hemoglobin 12.2 g/dL (14.0-18.0) Hematocrit 37.5 % (42.0-52.0) Mean Corpuscular Volume 70.6 fL (80.0-96.0) Mean Corpuscular Hemoglobin 22.9 pg (26.0-33.0) Mean Corpuscular Hemoglobin Concent 32.5 g/dL (32.0-36.0) Red Cell Distribution Width 21.7 % (11.5-14.5) Platelet Count 384 K/uL (150-450) Mean Platelet Volume 7.0 fL (7.2-11.1) Neutrophils (%) (Auto) 70.2 % (39.4-72.5) Lymphocytes (%) (Auto) 14.2 % (17.6-49.6) Monocytes (%) (Auto) 11.3 % (4.1-12.4) Eosinophils (%) (Auto) 3.7 % (0.4-6.7) Basophils (%) (Auto) 0.6 % (0.3-1.4) Nucleated RBC Relative Count (auto) 0.1 /100WBC Neutrophils # (Auto) 6.3 K/uL (2.0-7.4) Lymphocytes # (Auto) 1.3 K/uL (1.3-3.6) Monocytes # (Auto) 1.0 K/uL (0.3-1.0) Eosinophils # (Auto) 0.3 K/uL (0.0-0.5) Basophils # (Auto) 0.1 K/uL (0.0-0.1) Nucleated RBC Absolute Count (auto) 0.01 K/uL Prothrombin Time 24.1 seconds (12.0-14.4) Prothromb Time International Ratio 2.09 Activated Partial Thromboplast Time 45 seconds (23-35) D-Dimer Quantitative (PE/DVT) 0.56 ug/ml (0-0.50) Glomerular Filtration Rate Calc > 60.0 Calcium Level 8.7 mg/dl (8.4-10.2) Total Bilirubin 0.3 mg/dl (0.2-1.3) Aspartate Amino Transf (AST/SGOT) 16 U/L (0-35) Alanine Aminotransferase (ALT/SGPT) 20 U/L (0-56) Alkaline Phosphatase 150 U/L (0-126) B-Type Natriuretic Peptide 45 pg/ml (0-100) Total Protein 7.1 gm/dl (6.3-8.2) Albumin 3.6 g/dl (3.5-5.0) Gastric Fluid pH 5-7 pH Gastric Fluid Occult Blood Negative (NEGATIVE) Whole Blood Glucose 75 mg/DL (75-110) Troponin I < 0.012 ng/ml Coagulation Test 03/05/18 14:35 Prothrombin Time 24.1 seconds Prothromb Time International Ratio 2.09 Activated Partial Thromboplast Time 45 seconds D-Dimer Quantitative (PE/DVT) 0.56 ug/ml (AIDEE CUTLER DO) EKG/Imaging EKG Interpretation EKG shows sinus tachycardia with a ventricular rate of 103 bpm. There is a right axis deviation.This EKG was compared to an EKG from 02/18/2018 the ventricular rate has decreased by approximately 25 bpm on the new EKG. Otherwise there are no changes Monitor Interpretation: Normal Sinus Rhythm (JOHN HENDRICKS MD) ED Course/Re-evaluation Clinical Indication for ER IV: Hydration, IV Access ED Course 03/05/2018 2:33:09 pm patient will get a cardiac workup at this time including d-dimer, serial troponins at 3 hours. We'll also obtain chest x-ray CT scan of the head. Decision to Disposition Date: March 05, 2018 Decision to Disposition Time: 18:00 (JOHN HENDRICKS MD) ED Course 03/05/2018 4:02:34 pm Pt signed out to me pending CT reports and troponin. Pts head ct and chest ct are stable; no acute findings. Pt is c/o of return of his pain. Pt received toradol 15mg on his initial arrival which helped will repeat a second 15mg. Pt is awaiting his second tropinin . If negative will recommend holter monitor due to near syncopal episodes. 03/05/2018 5:46:41 pm Second troponin is normal. will send home with holter. Decision to Disposition Date: March 05, 2018 Decision to Disposition Time: 17:54 (AIDEE CUTLER DO) Depart Departure Latest Vital Signs Vital Signs Date Time Temp Pulse Resp B/P (MAP) Pulse Ox O2 Delivery O2 Flow Rate FiO2 03/05/18 16:40 109 27 97 03/05/18 16:30 106/88 (94) 03/05/18 14:26 3.0 03/05/18 14:02 97.8 Nasal Cannula (AIDEE CUTLER DO) Impression: Primary Impression: Episode of dizziness Additional Impressions: Syncope, near Chest pain of uncertain etiology Headache Referrals: LENIN ANTONIO APRN-Mario (PCP) 2 Days Departure Forms: ER Transition Record, Medications Reconciliation, Patient Portal Information Patient Instructions: GENERAL ER DISCHARGE INSTRUCTIONS Additional Instructions: We are sending you home with a holter monitor to continue to evaluate your episodes Follow up with your doctor this week. If symptoms worsen prior to follow up then please return. Problem Qualifiers Additional Impressions: Headache Headache type: unspecified Headache chronicity pattern: chronic headache Intractability: not intractable Qualified Codes: R51 - Headache JOHN HENDRICKS MD March 05, 2018 14:11 AIDEE CUTLER DO March 05, 2018 16:05
[2018-03-05] MEDS ORDERED: ONDANSETRON 4 MG/2 ML VIAL IVP ONE (14:15)
[2018-03-05] MEDS ORDERED: NS(*) 0.9% 500 ML BAG 500 ML IV ONE (14:15)
[2018-03-05] MEDS ORDERED: KETOROLAC 15 MG/ML VIAL IVP ONE ×2 (14:15→15:50)
[2018-03-05] MEDS ORDERED: ASPIRIN 81 MG CHEW PO ONE (14:15)
--- NOTE | 2018-03-05 14:39 | EKG ---
FACILITY: [facility] - [place] PATIENT NAME: GEORGE ROY : [id number] MR: [id number] V: [id number] EXAM DATE: ORDERING PHYSICIAN: JOHN HENDRICKS TECHNOLOGIST: MICK Test Reason : CP Blood Pressure : / mmHG Vent. Rate : 103 BPM Atrial Rate : 103 BPM P-R Int : 126 ms QRS Dur : 082 ms QT Int : 348 ms P-R-T Axes : 046 100 060 degrees QTc Int : 455 ms Sinus tachycardia Possible left atrial enlargement Rightward axis Nonspecific ST findings Borderline ECG When compared with ECG of 18-FEB-2018 20:36, No significant change was found Confirmed by ANTHONY DUQUE ([id number]) on 03/06/2018 5:22:42 AM Referred By: RUTHIE Confirmed By:ANTHONY DUQUE
[2018-03-05 14:54] LABS: INR 2.09
[2018-03-05 14:55] LABS: PLATELET COUNT, AUTOMATED 384 K/uL (150-450)
[2018-03-05] MEDS ORDERED: IOPAMIDOL 76% 150 ML INFUS BTL 150 ML ONE (15:09)
[2018-03-05] MEDS ORDERED: NS 0.9% 150 ML BAG 150 ML ONE (15:09)
--- NOTE | 2018-03-05 15:13 | RADIOLOGY IMAGING REPORT ---
FACILITY: [facility] PATIENT NAME: Rodrigue Phillips : 1960 MR: [id number] V: [id number] EXAM DATE: ORDERING PHYSICIAN: JOHN HENDRICKS TECHNOLOGIST: Location: [facility] Patient: Rodrigue Phillips : 1960 Visit/Account:[id number] Date of Sevice: 03/05/2018 CHEST PA AND LAT INDICATION: Chest Pain COMPARISON: 02/19/2018 FINDINGS: Heart size within normal limits. There is no focal infiltrate or lobar consolidation. There is no pneumothorax or pleural effusion. IMPRESSION: 1. No acute cardiopulmonary process. Report Dictated By: Elio Ward at 03/05/2018 3:07 PM Report E-Signed By: Elio Ward at 03/05/2018 3:08 PM WSN:[email or web address]
--- NOTE | 2018-03-05 15:48 | RADIOLOGY IMAGING REPORT ---
FACILITY: [facility] - [place] PATIENT NAME: Rodrigue Phillips : 1960 MR: [id number] V: [id number] EXAM DATE: ORDERING PHYSICIAN: JOHN HENDRICKS TECHNOLOGIST: Location: [facility] - [place] Patient: Rodrigue Phillips : 1960 Visit/Account:[id number] Date of Sevice: 03/05/2018 EXAMINATION: CT Head without intravenous contrast HISTORY: Headache. TECHNIQUE: Axial images were obtained from the skull base to the vertex without intravenous contrast . Sagittal and coronal reformatted images are also submitted. One of the following dose optimization techniques was utilized in the performance of this exam: Autom ated exposure control; adjustment of the mA and/or kV according to the patient's size; or use of an i terative reconstruction technique. Specific details can be referenced in the facility's radiology C T exam operational policy. COMPARISON: Multiple noncontrast head CT's dating back to 07/10/2016. FINDINGS: Brain volume: Moderate central volume loss in the supratentorial brain. Ventricles: Right-sided approach ventricular shunt terminating near the midline. Stable dilation of the lateral ventricles. No significant interval change. Acute ischemic changes: None. Hemorrhage: None. Masses / edema: None. Prater-white: Stable right posterior temporal encephalomalacia/gliosis. White matter: Negative. Vessels: Negative. Extra-axial: Negative. Calvarium / skull base: Postsurgical changes. Otherwise negative. Visualized sinuses / orbits: Negative. IMPRESSION: 1. No acute intracranial abnormality. 2. Stable ventricular size and right-sided approach ventricular shunt. Report Dictated By: Nikolai Alicea MD at 03/05/2018 3:39 PM Report E-Signed By: Nikolai Alicea MD at 03/05/2018 3:44 PM WSN:[id number]
--- NOTE | 2018-03-05 15:58 | RADIOLOGY IMAGING REPORT ---
FACILITY: [facility] PATIENT NAME: Rodrigue Phillips : 1960 MR: [id number] V: [id number] EXAM DATE: ORDERING PHYSICIAN: JOHN HENDRICKS TECHNOLOGIST: Location: [facility] - [place] Patient: Rodrigue Phillips : 1960 Visit/Account:[id number] Date of Sevice: 03/05/2018 EXAMINATION: CTA of the chest with IV contrast HISTORY: Shortness of breath. TECHNIQUE: Pulmonary embolus protocol - Thin-slice axial imaging of the chest was performed during maximal pulmonary arterial opacification with intravenous nonionic iodinated contrast. 3D coronal sla b MIPs and 2D reconstructions in the coronal and sagittal planes were performed to aid in pulmonary e mbolus detection. Cardiovascular Or Nurse images have been stored on PACS. One of the following dose optimization techniques was utilized in the performance of this exam: Autom ated exposure control; adjustment of the mA and/or kV according to the patient's size; or use of an i terative reconstruction technique. Specific details can be referenced in the facility's radiology C T exam operational policy. CONTRAST: 125 mL of IV [id number] COMPARISON: Chest CTA dated the 2017. FINDINGS: CTA CHEST: Please note that this exam is optimized for assessment of the pulmonary arteries and is not intended as a diagnostic study of the thoracic aorta, coronary arteries or venous structures. Angiographic Findings: Pulmonary arteries: There are no filling defects in the main, right, left, lobar, segmental or visual ized sub-segmental branches of the pulmonary arterial system. No intraluminal webs or bronchial malaika aterals. Other vasculature: Negative. Additional non-angiographic findings: Lungs / Pleura: Mild dependent atelectasis. Otherwise negative. Mediastinum / Daisy: Negative. Heart / Pericardium: Coronary artery calcification versus stent in the left anterior descending cor onary artery. Musculoskeletal / Body wall: Negative. Lymph node assessment: Negative. Upper abdomen: Negative. Lower neck: Negative. IMPRESSION: 1. No evidence of acute or chronic pulmonary embolism. 2. Otherwise no acute cardiopulmonary process. Report Dictated By: Nkiolai Alicea MD at 03/05/2018 3:44 PM Report E-Signed By: Nikolai Alicea MD at 03/05/2018 3:55 PM WSN:[id number]
--- NOTE | 2018-03-07 21:22 | RT HOLTER TEST ---
FACILITY: [facility] PATIENT NAME: GEORGE ROY : [id number] MR: [id number] V: [id number] EXAM DATE: ORDERING PHYSICIAN: AIDEE CUTLER TECHNOLOGIST: DEEJAY Mcclain date: 2018-03-05 18:09:00 Duration: 47:01:00 Test Indications: DIZZY, CHEST PAIN Medications: 256166 QRS complexes 224 Ventricular ectopics which represent <1 % of total QRS comp. 8 Supraventricular ectopics which represent <1 % of total QRS comp. * Paced QRS complexes which represent % of total QRS comp. VENTRICULAR ECTOPY 216 Isolated 0 Bigeminal Cycles 4 Couplets 0 Runs 0 Beats in Runs * Beats LONGEST at * BPM at :: -- * Beats FASTEST at * BPM at :: -- SUPRAVENTRICULAR ECTOPY 4 Isolated 2 Couplets 0 Runs 0 Beats in Runs * Beats LONGEST at * BPM at :: -- * Beats FASTEST at * BPM at :: -- HEART RATES 73 MIN at 05:21:27 2018-03-06 109 AVG 156 MAX at 01:15:04 2018-03-06 LONGEST RR 0.992 secs at 05:21:24 2018-03-06 S-T LEVELS Channel 1 -12.800 mm MIN at 18:09:00 2018-03-05 -12.800 mm MAX at 18:09:00 2018-03-05 Channel 2 -12.800 mm MIN at 18:09:00 2018-03-05 -12.800 mm MAX at 18:09:00 2018-03-05 Channel 3 -12.800 mm MIN at 18:09:00 2018-03-05 -12.800 mm MAX at 18:09:00 2018-03-05 Very rare supraventricular ectopy with a pair of couplets. Rare ventricular ectopy with a few couplets. No runs. No pauses were recorded. Nonspecific ST elevation was noted in all leads throughout the entire recording. Confirmed by ANTHONY DUQUE ([id number]) on 03/07/2018 9:21:59 PM Referred By: Overread By: ANTHONY DUQUE
[2018-03-15] MEDS ORDERED: ONDA4TAB9 PO (10:56)
== END 2018-03-05 18:20 | disposition home or self-care (01) ==
LOC: ER 14:10
DX: R42 Dizziness and giddiness (principal); R55 Syncope and collapse; R07.89 Other chest pain; R51 Headache; Z79.01 Long term (current) use of anticoagulants; R00.0 Tachycardia, unspecified
CPT/HCPCS: 36415; 36416; 70450; 71046; 71275; 82271; 82948; 83880; 83986; 84484; 85025; 85379; 85610; 85730; 93005; 93225; 96361; 96374; 96375; 99284; A9270; J1885; J2405; J7040; Q9967; 82040; 82247; 82310; 82374; 82435; 82565; 82947; 84075; 84132; 84155; 84295; 84450; 84460; 84520; 93226

== ENCOUNTER 2018-03-15 15:59 | Emergency (ER) | payer MEDICARE, MEDICAID ==
[2017-12-26 12:06] VITALS: BMI 48.4
--- NOTE | 2018-03-15 16:14 | ER Report ---
History and Physical Time Seen By MD: 16:13 HPI/ROS CHIEF COMPLAINT: Pressure sore the right buttock HISTORY OF PRESENT ILLNESS: Patient is a 57-year-old here with complaints of a right pressure ulcer of approximately 2 cm diameter. Patient is seen every other day by home health nursing. He has had multiple pressure sores in the past which are well healed. He did note some scant bleeding from the pressure ulcer which prompted evaluation today. Patient is afebrile, normotensive at time of evaluation. Patient denies chest pain, shortness breath, nausea, vomiting, diarrhea. Allergies: Coded Allergies: vancomycin (Verified Allergy, Severe, Respiratory arrest due to bronchospasm, 12/21/17) Respiratory arrest due to bronchospasm ciprofloxacin (Verified Allergy, Intermediate, TINGLING, 12/21/17) clindamycin (Verified Allergy, Intermediate, RASH, 12/21/17) perflutren (Verified Adverse Reaction, Severe, Respiratory Arrest, 12/21/17) amoxicillin (Verified Adverse Reaction, Mild, N/V/D, 12/21/17) 07/2017: Pt tolerated Unasyn without difficulty clavulanic acid (Verified Adverse Reaction, Mild, N/V/D, 12/21/17) Uncoded Allergies: contrast definity (Allergy, Severe, MENTAL STATUS CHANGES, 08/15/17) went unresponsive Home Meds Active Scripts Ondansetron (ONDANSETRON ODT) 4 Mg Tab.rapdis, 1 TAB PO Q12H, #30 TAB 1 Refill Prov:LENIN ANTONIO APRN [employer] 03/15/18 Oxycodone Hcl 20 Mg Tab (OXYCODONE HCL 20 MG TAB) 20 Mg Tablet, 1 TAB PO Q6H Y for PAIN, #120 TAB 0 Refills Prov:LENIN ANTONIO APRN [employer] 02/26/18 Atorvastatin Calcium (ATORVASTATIN CALCIUM) 40 Mg Tablet, 1 TAB PO QHS, #90 TAB 1 Refill Prov:LENIN ANTONIO APRN [employer] 02/21/18 Azithromycin 250 Mg Tab (AZITHROMYCIN 250 MG TAB) 250 Mg Tablet, 1 TAB PO QDAY for 4 Days, #4 TAB Prov:ANDER CAMPOS MD 02/19/18 Cefuroxime Axetil (CEFUROXIME) 500 Mg Tablet, 500 MG PO BID for 5 Days, #10 TAB Prov:ANDER CAMPOS MD 02/19/18 Ferrous Sulfate (FERROUS SULFATE) 325 Mg Tablet, 1 TAB PO BID, #180 TAB 0 Refills Prov:LENIN ANTONIO APRN [employer] 02/06/18 Gabapentin (GABAPENTIN) 600 Mg Tablet, 600 MG PO TID, #270 TAB 1 Refill Prov:LENIN ANTONIO APRN [employer] 02/05/18 Warfarin Sodium (COUMADIN) 5 Mg Tablet, 1-1.5 TAB PO QDAY@13, #45 TAB 5 Refills 1.5 tabs every monday and 1 tab all other days Prov:LENIN ANTONIO APRN [employer] 01/31/18 Lactobacillus Rhamnosus Gg (CULTURELLE) 1 Each Capsule, 1 EACH PO NOON, #30 CAPSULE 0 Refills Prov:LENIN ANTONIO APRN [employer] 01/30/18 Amitriptyline Hcl (AMITRIPTYLINE HCL) 25 Mg Tablet, 25 MG PO QHS, #90 TAB 1 Refill Prov:LENIN ANTONIO APRN [employer] 01/30/18 Tigecycline (TYGACIL) 50 Mg Vial, 50 MG IV Q12H, #56 VIAL Prov:NITHYARODRIGO CUNNINGHAM DO 01/11/18 Insulin Glargine 100 Un/Ml Pen (LANTUS SOLOSTAR PEN) 100 Unit/1 Ml Insuln.pen, 55 UNIT SUBQ QAM, #3 ML Prov:NITHYARODRIGO CUNNINGHAM DO 01/11/18 Insulin Glargine 100 Un/Ml Pen (LANTUS SOLOSTAR PEN) 100 Unit/1 Ml Insuln.pen, 25 UNIT SUBQ QHS, #3 ML Prov:RODRIGO BARRIGA DO 01/11/18 Insulin Aspart 100 Un/Ml Pen (NOVOLOG FLEXPEN) 100 Unit/1 Ml Insuln.pen, 20 UNIT SUBQ TIDAC, #3 ML Prov:RODRIGO BARRIGA DO 01/11/18 Furosemide (FUROSEMIDE) 40 Mg Tablet, 40 MG PO QDAY, #30 TAB Prov:RODRIGO BARRIGA DO 01/11/18 Pantoprazole Sodium (PANTOPRAZOLE SODIUM) 40 Mg Tablet.dr, 40 MG PO HS, #90 TAB.SR 1 Refill Prov:JOHN DUUQE MD 12/21/17 Magnesium Oxide (MAGNESIUM OXIDE) 400 Mg Tablet, 1 TAB PO DAILY, #180 TAB 2 Refills Prov:JOHN DUQUE MD 12/21/17 [Ostomy Supplies] No Conflict Check Prov:LENIN ANTONIO APRN 12/21/17 NYSTATIN [id number] UNT/ML Topical Cream (NYSTATIN 517633 UNT/ML Topical Cream) 15 Gm Cream..g., 1 JAEL TP BID, #120 GM 2 Refills Apply to yeast infection twice daily until resolved then treat the area once daily M, W, F Prov:LENIN ANTONIO APRN 12/19/17 Trazodone Hcl (TRAZODONE HCL) 50 Mg Tablet, 50 MG PO QHS, #90 TAB 1 Refill Prov:LENIN ANTONIO APRN 12/05/17 Metoprolol Succinate (TOPROL XL) 50 Mg Tab.er.24h, 0.5 TAB PO QDAY, #30 TAB 5 Refills Prov:LENIN ANTONIO APRN 03/20/17 Reported Medications Oxygen (OXYGEN) Inha, 2 L INH, L 12/26/17 Duloxetine Hcl (CYMBALTA) 30 Mg Capsule.dr, 30 MG PO QDAY, #5 CAP 12/21/17 Lactose-Free Food (ENSURE CLEAR) 296 Ml Liquid, 296 ML PO HS 12/21/17 Morphine Sulfate 15 Mg Er Tab (MORPHINE SULFATE 15 MG ER TAB) 15 Mg Tablet.er, 1 TAB PO Q12H 12/05/17 Aspirin (ASPIRIN) 81 Mg Tab.chew, 81 MG PO QDAY, TAB.CHEW 12/02/17 Hx Smoking: No Smoking Status: Never Smoker Exposure to Second Hand Smoke?: Yes Hx Substance Use Disorder: No Hx Alcohol Use: Yes Constitutional Vital Sign - Last 24 Hours 03/15/18 16:25 Pulse 95 Resp 20 B/P (MAP) 142/93 Pulse Ox 94 Physical Exam General appearance: Alert no distress. Neuro: No focal neuro deficits Skin: + Right buttock pressure sore with scant bleeding DIFFERENTIAL DIAGNOSIS: After history and physical exam differential diagnosis was considered for pressure ulcer, abscess, cellulitis Medical Decision Making ED Course/Re-evaluation ED Course Patient is a 57-year-old male here with a new pressure ulcer with scant bleeding. Patient reports several pressure ulcers in the past which are well healing. Site was dressed and patient was advised follow-up with his family doctor. Decision to Disposition Date: March 15, 2018 Decision to Disposition Time: 16:34 Depart Departure Latest Vital Signs Vital Signs Date Time Temp Pulse Resp B/P (MAP) Pulse Ox O2 Delivery O2 Flow Rate FiO2 03/15/18 16:25 95 20 142/93 94 Impression: Primary Impression: Pressure sore Condition: Condition Unchanged Disposition: HOME OR SELF-CARE Referrals: LENIN ANTONIO APRN [employer] (PCP) Patient Instructions: How to Prevent Pressure Ulcers (ED) Additional Instructions: Please keep the pressure ulcer clean and redress with bandages daily. Please return promptly with worsening pain, fevers, drainage from the site. Please follow up with your family doctor next week SHAINA MANE DO March 15, 2018 16:13
[2018-03-15 16:25] VITALS: BP 142/93
== END 2018-03-15 16:50 | disposition home or self-care (01) ==
LOC: ER 16:24
DX: L89.319 Pressure ulcer of right buttock, unspecified stage (principal)
CPT/HCPCS: 99281

== ENCOUNTER 2018-03-26 15:18 | Inpatient (IN) | payer MEDICARE, MEDICAID ==
[2017-12-26 12:06] VITALS: Ht 170.2 cm; Wt 138.8 kg
[~2018-03-26] VITALS: Ht 170.2 cm; Wt 138.8 kg
[2018-03-26] MEDS ORDERED: LEVALBUTEROL 1.25 MG/3 ML NEB NEB ONE (15:30)
[2018-03-26 16:07] LABS: PLATELET COUNT, AUTOMATED 227 K/uL (150-450)
--- NOTE | 2018-03-26 16:16 | EKG ---
FACILITY: [facility] [place] PATIENT NAME: GEORGE ROY : [id number] MR: [id number] V: [id number] EXAM DATE: ORDERING PHYSICIAN: SOHA OTERO TECHNOLOGIST: JOELLE Garcias Reason : SOB Blood Pressure : / mmHG Vent. Rate : 146 BPM Atrial Rate : 146 BPM P-R Int : 116 ms QRS Dur : 074 ms QT Int : 284 ms P-R-T Axes : 057 090 060 degrees QTc Int : 442 ms Sinus tachycardia Possible left atrial enlargement Rightward axis Nonspecific ST findings Borderline ECG When compared with ECG of 05-MAR-2018 14:16, No significant change was found Confirmed by ANTHONY DUQUE ([id number]) on 03/27/2018 6:03:16 AM Referred By: BRANDEN Confirmed By:ANTHONY DUQUE
--- NOTE | 2018-03-26 16:26 | RADIOLOGY IMAGING REPORT ---
[place] [facility] [place] Rodrigue Phillips : 1960 MR: [id number] V: [id number] EXAM DATE: ORDERING PHYSICIAN: SOHA OTERO TECHNOLOGIST: Location: [facility] Patient: Rodrigue Phillips : 1960 Visit/Account:[id number] Date of Sevice: 03/26/2018 2 VIEWS CHEST INDICATION: Cough, shortness breath, chest pain. COMPARISON: 03/05/2018. FINDINGS: Cardiomediastinal silhouette and pulmonary vessels within normal limits. There is no focal infiltrate or lobar consolidation. There is no pneumothorax or pleural effusion. No nodule. Chronic interstitial changes. Upper abdomen is unremarkable. No acute bony abnormality. IMPRESSION: 1. No acute cardiopulmonary process. Report Dictated By: Chu Gardiner at 03/26/2018 4:21 PM Report E-Signed By: Chu Gardiner at 03/26/2018 4:22 PM WSN:[id number]
[2018-03-26] MEDS ORDERED: NS(*) 0.9% 1000 ML BAG 1,000 ML IV ONE (17:10)
[2018-03-26 17:26] LABS: INR 1.14
[2018-03-26] MEDS ORDERED: NS 0.9% 25 ML BAG 0 ML ONE (17:31)
[2018-03-26] MEDS ORDERED: IOPAMIDOL 76% 100 ML INFUS BTL 100 ML ONE (17:31)
[2018-03-26] MEDS ORDERED: NS 0.9% 25 ML BAG 50 ML ONE (17:33)
[2018-03-26] MEDS ORDERED: AZITHROMYCIN(*) 500 MG 500 MG in NS(*) 0.9% 250 ML BAG 250 ML IVPB ONE (17:50)
[2018-03-26] MEDS ORDERED: ACETAMINOPHEN 500 MG TAB PO ONE (17:55)
[2018-03-26] MEDS ORDERED: cefTRIAXone 1 GM VIAL IVP ONE (18:30)
--- NOTE | 2018-03-26 18:58 | RADIOLOGY IMAGING REPORT ---
FACILITY: [facility] - [place] PATIENT NAME: Rodrigue Phillips : 1960 MR: [id number] V: [id number] EXAM DATE: ORDERING PHYSICIAN: SOHA OTERO TECHNOLOGIST: [place] [facility] [place] : 1960 Visit/Account:[id number] Date of Sevice: 03/26/2018 CTA CHEST WW/O CNTR (PULM ANG) HISTORY: tachycardic with SOB and hypoxia TECHNIQUE: CTA chest with intravenous contrast attention to pulmonary arteries. Sagittal, coronal a nd slab 3D MIP coronal reconstructed images were also created for further evaluation and interpretati on. CONTRAST: [id number] 80 mls. One of the following dose optimization techniques was utilized in the performance of this exam: Autom ated exposure control; adjustment of the mA and/or kV according to the patient's size; or use of an i terative reconstruction technique. Specific details can be referenced in the facility's radiology C T exam operational policy. COMPARISON: CTA chest March 05, 2018. FINDINGS: Heart/coronary vessels: The heart is perhaps minimally enlarged. There is coronary artery calcificat ion. There is no pericardial effusion. Pulmonary arteries: In the segmental and subsegmental branches supplying the right lower lobe medial basal segments there is underfilling of the pulmonary arteries that is similar to what has been noted in the past. It likely represents either chronic PE or artifact related to consistent underfilling. There are no definitive new filling defect to suggest pulmonary embolus. Thoracic aorta: No findings of dissection or aneurysmal dilatation. Mediastinum: There are mildly enlarged lymph nodes in the right paratracheal region and pretracheal region that were noted on the prior exam. Lymph nodes: There is no axillary lymphadenopathy. Lungs/pleura: There is no infiltrate or pleural effusion. Visualized upper abdomen: Negative. Bones/soft tissues: No vertebral body compression fracture seen. Mild discogenic degenerative change s in thoracic spine. IMPRESSION: 1. There is no finding of a new filling defect to suggest pulmonary embolus. There is underfilling of a segmental and subsegmental branch vessels in the medial basal segment of the right lower lobe that represents a stable and chronic finding. 2. Right paratracheal lymph node measuring 1.0 x 1.5 cm in size unchanged when compared to the prior exam. Small lymph nodes noted elsewhere in the pretracheal region and benito. They appear probably stab le. Results were called to SOHA OTERO M.D. At 03/26/2018 6:45 PM. Report Dictated By: Dylon Conklin MD at 03/26/2018 6:35 PM Report E-Signed By: Dylon Conklin MD at 03/26/2018 6:55 PM WSN:[id number]
--- NOTE | 2018-03-26 19:03 | ER Report ---
History and Physical Time Seen By MD: 15:30 Hx. of Stated Complaint: dyspnea, cough, generalized not feeling well for 1-2 weeks and now having sternal chest pain (OSHA OTERO MD) HPI/ROS This is a 57-year-old male with multiple complicated medical problems. He presented to the emergency department by EMS complaining of 2 weeks of a worsening cough and shortness of breath. His states she is worried that he has pneumonia again. He is febrile. Also complains of mild loose bowel movements but no abdominal pain. States he overall feels unwell. Says he has been drinking plenty of fluids. No nausea or vomiting. No rashes Remainder of the 14 system rev: Yes (SOHA OTERO MD) Allergies: Coded Allergies: vancomycin (Verified Allergy, Severe, Respiratory arrest due to bronchospasm, 03/26/18) Respiratory arrest due to bronchospasm ciprofloxacin (Verified Allergy, Intermediate, TINGLING, 03/26/18) clindamycin (Verified Allergy, Intermediate, RASH, 03/26/18) perflutren (Verified Adverse Reaction, Severe, Respiratory Arrest, 03/26/18 ) amoxicillin (Verified Adverse Reaction, Mild, N/V/D, 03/26/18) 07/2017: Pt tolerated Unasyn without difficulty clavulanic acid (Verified Adverse Reaction, Mild, N/V/D, 03/26/18) Uncoded Allergies: contrast definity (Allergy, Severe, MENTAL STATUS CHANGES, 08/15/17) went unresponsive Home Meds Active Scripts Ondansetron (ONDANSETRON ODT) 4 Mg Tab.rapdis, 1 TAB PO Q12H, #30 TAB 1 Refill Prov:LENIN ANTONIO APRNP-C 03/15/18 Oxycodone Hcl 20 Mg Tab (OXYCODONE HCL 20 MG TAB) 20 Mg Tablet, 1 TAB PO Q6H Y for PAIN, #120 TAB 0 Refills Prov:LENIN ANTONIO APRNP-C 02/26/18 Atorvastatin Calcium (ATORVASTATIN CALCIUM) 40 Mg Tablet, 1 TAB PO QHS, #90 TAB 1 Refill Prov:LENIN ANTONIO APRN [facility] 02/21/18 Cefuroxime Axetil (CEFUROXIME) 500 Mg Tablet, 500 MG PO BID for 5 Days, #10 TAB Prov:NAJM,ANDER T MD 02/19/18 Ferrous Sulfate (FERROUS SULFATE) 325 Mg Tablet, 1 TAB PO BID, #180 TAB 0 Refills Prov:LENIN ANTONIO APRN [facility] 02/06/18 Gabapentin (GABAPENTIN) 600 Mg Tablet, 600 MG PO TID, #270 TAB 1 Refill Prov:LENIN ANTONIO APRNP-C 02/05/18 Warfarin Sodium (COUMADIN) 5 Mg Tablet, 1-1.5 TAB PO QDAY@13, #45 TAB 5 Refills 1.5 tabs every monday and 1 tab all other days Prov:LENIN ANTONIO APRNP-C 01/31/18 Lactobacillus Rhamnosus Gg (CULTURELLE) 1 Each Capsule, 1 EACH PO NOON, #30 CAPSULE 0 Refills Prov:LENIN ANTONIO APRN-C 01/30/18 Amitriptyline Hcl (AMITRIPTYLINE HCL) 25 Mg Tablet, 25 MG PO QHS, #90 TAB 1 Refill Prov:LENIN ANTONIO APRNP-C 01/30/18 Insulin Glargine 100 Un/Ml Pen (LANTUS SOLOSTAR PEN) 100 Unit/1 Ml Insuln.pen, 55 UNIT SUBQ QAM, #3 ML Prov:RODRIGO BARRIGA DO 01/11/18 Insulin Glargine 100 Un/Ml Pen (LANTUS SOLOSTAR PEN) 100 Unit/1 Ml Insuln.pen, 25 UNIT SUBQ QHS, #3 ML Prov:RODRIGO BARRIGA DO 01/11/18 Insulin Aspart 100 Un/Ml Pen (NOVOLOG FLEXPEN) 100 Unit/1 Ml Insuln.pen, 20 UNIT SUBQ TIDAC, #3 ML Prov:RODRIGO BARRIGA DO 01/11/18 Furosemide (FUROSEMIDE) 40 Mg Tablet, 40 MG PO QDAY, #30 TAB Prov:RODRIGO BARRIGA DO 01/11/18 Magnesium Oxide (MAGNESIUM OXIDE) 400 Mg Tablet, 1 TAB PO DAILY, #180 TAB 2 Refills Prov:JOHN HERNADEZ MD 12/21/17 [Ostomy Supplies] No Conflict Check Prov:LENIN ANTONIO APRNP-C 12/21/17 NYSTATIN 901276 UNT/ML Topical Cream (NYSTATIN 011740 UNT/ML Topical Cream) 15 Gm Cream..g., 1 JAEL TP BID, #120 GM 2 Refills Apply to yeast infection twice daily until resolved then treat the area once daily M, W, F Prov:LENIN ANTONIO APRN 12/19/17 Trazodone Hcl (TRAZODONE HCL) 50 Mg Tablet, 50 MG PO QHS, #90 TAB 1 Refill Prov:LENIN ANTONIO APRN-Mario 12/05/17 Metoprolol Succinate (TOPROL XL) 50 Mg Tab.er.24h, 0.5 TAB PO QDAY, #30 TAB 5 Refills Prov:LENIN ANTONIO APRN 03/20/17 Reported Medications Oxygen (OXYGEN) Inha, 2 L INH, L 12/26/17 Duloxetine Hcl (CYMBALTA) 30 Mg Capsule.dr, 30 MG PO QDAY, #5 CAP 12/21/17 Aspirin (ASPIRIN) 81 Mg Tab.chew, 81 MG PO QDAY, TAB.CHEW 12/02/17 Discontinued Reported Medications Lactose-Free Food (ENSURE CLEAR) 296 Ml Liquid, 296 ML PO HS 12/21/17 Morphine Sulfate 15 Mg Er Tab (MORPHINE SULFATE 15 MG ER TAB) 15 Mg Tablet.er, 1 TAB PO Q12H 12/05/17 Discontinued Scripts Azithromycin 250 Mg Tab (AZITHROMYCIN 250 MG TAB) 250 Mg Tablet, 1 TAB PO QDAY for 4 Days, #4 TAB Prov:ANDER CAMPOS MD 02/19/18 Tigecycline (TYGACIL) 50 Mg Vial, 50 MG IV Q12H, #56 VIAL Prov:RODRIGO BARRIGA DO 01/11/18 Pantoprazole Sodium (PANTOPRAZOLE SODIUM) 40 Mg Tablet.dr, 40 MG PO HS, #90 TAB.SR 1 Refill Prov:JOHN HERNADEZ MD 12/21/17 Reviewed Nurses Notes: Yes Old Medical Records Reviewed: Yes (SOHA OTERO MD) Hx Smoking: No Smoking Status: Never Smoker Exposure to Second Hand Smoke?: Yes Hx Substance Use Disorder: No Hx Alcohol Use: Yes (SOHA OTERO MD) Constitutional Vital Sign - Last 24 Hours 03/26/18 03/26/18 03/26/18 03/26/18 15:23 15:24 15:30 15:44 Temp 101.3 Pulse 156 144 Resp 20 20 B/P (MAP) 110/82 (91) 110/82 108/68 (81) Pulse Ox 92 O2 Delivery Nasal Cannula 03/26/18 03/26/18 03/26/18 03/26/18 15:48 15:50 16:18 16:30 Pulse 142 146 146 Resp 18 20 14 B/P (MAP) 113/76 (88) 03/26/18 03/26/18 03/26/18 03/26/18 16:48 17:00 17:05 17:30 Pulse 141 140 Resp 12 10 B/P (MAP) 136/118 (124) 109/69 (82) 03/26/18 03/26/18 03/26/18 03/26/18 17:35 18:30 18:35 18:40 Pulse 133 121 125 Resp 7 13 26 B/P (MAP) 115/79 (91) Pulse Ox 100 100 03/26/18 03/26/18 03/26/18 03/26/18 18:55 19:00 19:10 19:25 Pulse 126 121 121 Resp 6 21 13 B/P (MAP) 125/84 (98) Pulse Ox 100 99 98 03/26/18 03/26/18 19:30 19:35 Pulse 122 Resp 17 B/P (MAP) 132/71 (91) Pulse Ox 96 Intake and Output 03/26/18 03/26/18 03/27/18 15:00 23:00 07:00 Intake Total 1000 ml Balance 1000 ml (AMANDO KARIMI MD) Physical Exam General Appearance: The patient is alert, has no immediate need for airway protection and no current signs of toxicity. Eyes: Pupils equal and round no injection. Respiratory: Chest is non tender, lungs are clear to auscultation. Cardiac: tachycardic Gastrointestinal: Abdomen is soft and non tender, colostomy in place Neck: Neck is supple and non tender. Extremities have full range of motion and are non tender. Skin: No rashes or lesions. DIFFERENTIAL DIAGNOSIS: After history and physical exam differential diagnosis was considered for adult fever including but not limited to viral syndromes including influenza, urinary tract infection, pneumonia and sepsis. (SOHA OTERO MD) Medical Decision Making Data Points Result Diagram: 03/27/18 0527 03/27/18 0527 Laboratory Hematology Test 03/26/18 15:55 03/26/18 17:48 03/26/18 18:49 Red Blood Count 4.99 M/uL (4.00-5.60) Mean Corpuscular Volume 70.5 fL (80.0-96.0) Mean Corpuscular Hemoglobin 22.6 pg (26.0-33.0) Mean Corpuscular Hemoglobin Concent 32.1 g/dL (32.0-36.0) Red Cell Distribution Width 19.5 % (11.5-14.5) Mean Platelet Volume 6.6 fL (7.2-11.1) Neutrophils (%) (Auto) 91.2 % (39.4-72.5) Lymphocytes (%) (Auto) 4.3 % (17.6-49.6) Monocytes (%) (Auto) 3.7 % (4.1-12.4) Eosinophils (%) (Auto) 0.5 % (0.4-6.7) Basophils (%) (Auto) 0.3 % (0.3-1.4) Nucleated RBC Relative Count (auto) 0.0 /100WBC Neutrophils # (Auto) 12.9 K/uL (2.0-7.4) Lymphocytes # (Auto) 0.6 K/uL (1.3-3.6) Monocytes # (Auto) 0.5 K/uL (0.3-1.0) Eosinophils # (Auto) 0.1 K/uL (0.0-0.5) Basophils # (Auto) 0.0 K/uL (0.0-0.1) Nucleated RBC Absolute Count (auto) 0.01 K/uL Prothrombin Time 14.7 seconds (12.0-14.4) Prothromb Time International Ratio 1.14 Activated Partial Thromboplast Time 30 seconds (23-35) Sodium Level 138 mmol/L (137-145) Potassium Level 4.2 mmol/L (3.5-5.0) Chloride Level 97 mmol/L (98-107) Carbon Dioxide Level 27 mmol/L (22-30) Blood Urea Nitrogen 16 mg/dl (9-21) Creatinine 0.60 mg/dl (0.66-1.25) Glomerular Filtration Rate Calc > 60.0 Random Glucose 187 mg/dl (75-110) Calcium Level 9.0 mg/dl (8.4-10.2) Total Bilirubin 0.3 mg/dl (0.2-1.3) Aspartate Amino Transf (AST/SGOT) 27 U/L (0-35) Alanine Aminotransferase (ALT/SGPT) 20 U/L (0-56) Alkaline Phosphatase 162 U/L (0-126) Troponin I < 0.012 ng/ml Total Protein 6.6 gm/dl (6.3-8.2) Albumin 3.2 g/dl (3.5-5.0) Lactate 2.0 mmol/L (0.7-2.1) Urine Color Yellow Urine Clarity Cloudy Urine pH 5.0 pH (4.8-9.5) Urine Specific [place] 1.053 Urine Protein 30 mg/dL (NEGATIVE) Urine Glucose (UA) Negative mg/dL (NEGATIVE) Urine Ketones Negative mg/dL (NEGATIVE) Urine Blood Large (NEGATIVE) Urine Nitrite Positive (NEGATIVE) Urine Bilirubin Negative (NEGATIVE) Urine Urobilinogen Negative mg/dL (0.2-1.9) Urine Leukocyte Esterase Large (NEGATIVE) Urine RBC 140 /HPF (0-2/HPF) Urine WBC 297 /HPF (0-5/HPF) Urine WBC Clumps Few /HPF Urine Squamous Epithelial Cells Many /LPF (NONE-FEW) Urine Bacteria Few /HPF (NONE-FEW) Urine Mucus Few /HPF (NONE-FEW) Urine Yeast Few /HPF (NONE) Urine Yeast (Budding) Few /HPF Chemistry Test 03/26/18 15:55 03/26/18 17:48 03/26/18 18:49 White Blood Count 14.1 k/uL (4.5-11.0) Red Blood Count 4.99 M/uL (4.00-5.60) Hemoglobin 11.3 g/dL (14.0-18.0) Hematocrit 35.2 % (42.0-52.0) Mean Corpuscular Volume 70.5 fL (80.0-96.0) Mean Corpuscular Hemoglobin 22.6 pg (26.0-33.0) Mean Corpuscular Hemoglobin Concent 32.1 g/dL (32.0-36.0) Red Cell Distribution Width 19.5 % (11.5-14.5) Platelet Count 227 K/uL (150-450) Mean Platelet Volume 6.6 fL (7.2-11.1) Neutrophils (%) (Auto) 91.2 % (39.4-72.5) Lymphocytes (%) (Auto) 4.3 % (17.6-49.6) Monocytes (%) (Auto) 3.7 % (4.1-12.4) Eosinophils (%) (Auto) 0.5 % (0.4-6.7) Basophils (%) (Auto) 0.3 % (0.3-1.4) Nucleated RBC Relative Count (auto) 0.0 /100WBC Neutrophils # (Auto) 12.9 K/uL (2.0-7.4) Lymphocytes # (Auto) 0.6 K/uL (1.3-3.6) Monocytes # (Auto) 0.5 K/uL (0.3-1.0) Eosinophils # (Auto) 0.1 K/uL (0.0-0.5) Basophils # (Auto) 0.0 K/uL (0.0-0.1) Nucleated RBC Absolute Count (auto) 0.01 K/uL Prothrombin Time 14.7 seconds (12.0-14.4) Prothromb Time International Ratio 1.14 Activated Partial Thromboplast Time 30 seconds (23-35) Glomerular Filtration Rate Calc > 60.0 Calcium Level 9.0 mg/dl (8.4-10.2) Total Bilirubin 0.3 mg/dl (0.2-1.3) Aspartate Amino Transf (AST/SGOT) 27 U/L (0-35) Alanine Aminotransferase (ALT/SGPT) 20 U/L (0-56) Alkaline Phosphatase 162 U/L (0-126) Troponin I < 0.012 ng/ml Total Protein 6.6 gm/dl (6.3-8.2) Albumin 3.2 g/dl (3.5-5.0) Lactate 2.0 mmol/L (0.7-2.1) Urine Color Yellow Urine Clarity Cloudy Urine pH 5.0 pH (4.8-9.5) Urine Specific [place] 1.053 Urine Protein 30 mg/dL (NEGATIVE) Urine Glucose (UA) Negative mg/dL (NEGATIVE) Urine Ketones Negative mg/dL (NEGATIVE) Urine Blood Large (NEGATIVE) Urine Nitrite Positive (NEGATIVE) Urine Bilirubin Negative (NEGATIVE) Urine Urobilinogen Negative mg/dL (0.2-1.9) Urine Leukocyte Esterase Large (NEGATIVE) Urine RBC 140 /HPF (0-2/HPF) Urine WBC 297 /HPF (0-5/HPF) Urine WBC Clumps Few /HPF Urine Squamous Epithelial Cells Many /LPF (NONE-FEW) Urine Bacteria Few /HPF (NONE-FEW) Urine Mucus Few /HPF (NONE-FEW) Urine Yeast Few /HPF (NONE) Urine Yeast (Budding) Few /HPF Coagulation Test 03/26/18 15:55 Prothrombin Time 14.7 seconds Prothromb Time International Ratio 1.14 Activated Partial Thromboplast Time 30 seconds Urinalysis Test 03/26/18 18:49 Urine Color Yellow Urine Clarity Cloudy Urine pH 5.0 pH (4.8-9.5) Urine Specific [place] 1.053 Urine Protein 30 mg/dL (NEGATIVE) Urine Glucose (UA) Negative mg/dL (NEGATIVE) Urine Ketones Negative mg/dL (NEGATIVE) Urine Blood Large (NEGATIVE) Urine Nitrite Positive (NEGATIVE) Urine Bilirubin Negative (NEGATIVE) Urine Urobilinogen Negative mg/dL (0.2-1.9) Urine Leukocyte Esterase Large (NEGATIVE) Urine RBC 140 /HPF (0-2/HPF) Urine WBC 297 /HPF (0-5/HPF) Urine WBC Clumps Few /HPF Urine Squamous Epithelial Cells Many /LPF (NONE-FEW) Urine Bacteria Few /HPF (NONE-FEW) Urine Mucus Few /HPF (NONE-FEW) Urine Yeast Few /HPF (NONE) Urine Yeast (Budding) Few /HPF (AMANDO KARIMI MD) EKG/Imaging Monitor Interpretation: Sinus Tachycardia (SOHA OTERO MD) Imaging CTA CHEST WW/O [facility] (PULM ANG) HISTORY: tachycardic with SOB and hypoxia TECHNIQUE: CTA chest with intravenous contrast attention to pulmonary arteries. Sagittal, coronal and slab 3D MIP coronal reconstructed images were also created for further evaluation and interpretation. CONTRAST: Isovue-370 80 mls. One of the following dose optimization techniques was utilized in the performance of this exam: Automated exposure control; adjustment of the mA and/ or kV according to the patient's size; or use of an iterative reconstruction technique. Specific details can be referenced in the facility's radiology CT exam operational policy. COMPARISON: CTA chest March 05, 2018. FINDINGS: Heart/coronary vessels: The heart is perhaps minimally enlarged. There is coronary artery calcification. There is no pericardial effusion. Pulmonary arteries: In the segmental and subsegmental branches supplying the right lower lobe medial basal segments there is underfilling of the pulmonary arteries that is similar to what has been noted in the past. It likely represents either chronic PE or artifact related to consistent underfilling. There are no definitive new filling defect to suggest pulmonary embolus. Thoracic aorta: No findings of dissection or aneurysmal dilatation. Mediastinum: There are mildly enlarged lymph nodes in the right paratracheal region and pretracheal region that were noted on the prior exam. Lymph nodes: There is no axillary lymphadenopathy. Lungs/pleura: There is no infiltrate or pleural effusion. Visualized upper abdomen: Negative. Bones/soft tissues: No vertebral body compression fracture seen. Mild discogenic degenerative changes in thoracic spine. IMPRESSION: 1. There is no finding of a new filling defect to suggest pulmonary embolus. There is underfilling of a segmental and subsegmental branch vessels in the medial basal segment of the right lower lobe that represents a stable and chronic finding. 2. Right paratracheal lymph node measuring 1.0 x 1.5 cm in size unchanged when compared to the prior exam. Small lymph nodes noted elsewhere in the pretracheal region and benito. They appear probably stable. Results were called to SOHA OTERO M.D. At 03/26/2018 6:45 PM. Report Dictated By: Dylon Conklin MD at 03/26/2018 6:35 PM ([facility] ED Course/Re-evaluation Clinical Indication for ER IV: Hydration ED Course 57-year-old male with multiple complicated medical problems presents to the emergency department with sepsis. He was given IV fluids, started on antibiotics and cultures were sent. A CTA of the chest reveals an old PE but no new PEs and no evidence of pneumonia. He does not have any abdominal pain and does not need any imaging of his abdomen or pelvis. Urine is currently pending as a source for his sepsis. In his multiple comorbidities and sepsis he will be admitted to the hospitalist service after his urinalysis returns. (SOHA OTERO MD) Clinical Indication for ER IV: Hydration, IV Access ED Course I assumed care of this patient from Dr. Otero at shift change. Patient has fever , tachycardia, and has had some shortness of breath and cough. He meets criteria for sepsis. Blood cultures are pending. CT angiogram of the chest shows normal-appearing lungs without any evidence of pulmonary embolism. White blood cell count is elevated with left shift. He has been having fevers with rigors. Urinalysis is been done and this appears to be the source of his infectious process. Prior cultures show Citrobacter, with multiple resistances. I called and spoke with Dr. Hernadez who has accepted the patient for admission. He will receive antibiotics once he is transferred to the medical floor. Decision to Disposition Date: Mar 26, 2018 Decision to Disposition Time: 19:25 (AMANDO KARIMI MD) Depart Departure Latest Vital Signs Vital Signs Date Time Temp Pulse Resp B/P (MAP) Pulse Ox O2 Delivery O2 Flow Rate FiO2 03/26/18 19:35 122 17 96 03/26/18 19:30 132/71 (91) 03/26/18 15:24 101.3 Nasal Cannula (AMANDO KARIMI MD) Impression: Primary Impression: Sepsis Additional Impression: Urinary tract infection Condition: Condition Unchanged Disposition: Admitted from ER Referrals: LENIN ANTONIO APRN [facility] (PCP) Problem Qualifiers Primary Impression: Sepsis Sepsis type: sepsis due to unspecified organism Qualified Codes: A41.9 - Sepsis, unspecified organism Additional Impression: Urinary tract infection Urinary tract infection type: site unspecified Hematuria presence: without hematuria Qualified Codes: N39.0 - Urinary tract infection, site not specified SOHA OTERO MD Mar 26, 2018 19:03 AMANDO KARIMI MD Mar 26, 2018 19:26
[2018-03-26] MEDS ORDERED: HYDROmorphone* 1 MG/ML 1 MG/ML ML IVP ONE (19:50)
[2018-03-26 20:18] VITALS: BP 140/78
[2018-03-26] MEDS ORDERED: traZODone HCL 50 MG TAB PO PRN (20:40)
--- NOTE | 2018-03-26 20:49 | History & Physical ---
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 He reports onset of feeling "crappy" approximately 3-4 days ago - this includes chest congestion, cough, aches, fevers and chills. He also reports generalized malaise, weakness, decreased appetite. He believes he feels the same as "when I had the bacteria my blood". He has been on chronic oral Duricef therapy. He was evaluated in the ER and found to have fever, elevated WBC count, and evidence of possible UTI. He was recommended for admission. History Problems: (1) Septic pulmonary embolism Status: Resolved (2) Noncompliance Status: Chronic (3) Recurrent bacteremia Status: Chronic (4) Spina bifida Status: Chronic (5) Type 2 diabetes mellitus Status: Chronic (6) Neurogenic bladder Status: Chronic (7) THOMAS (obstructive sleep apnea) Status: Chronic (8) Hx of deep venous thrombosis Status: Chronic (9) Hx of necrotising fasciitis Status: Resolved (10) Obesity, morbid, BMI 40.0-49.9 Status: Chronic (11) Chronic indwelling Muñoz catheter Status: Chronic (12) CAD (coronary artery disease) Status: Chronic (13) Chronic pain Status: Chronic (14) Hypertension Status: Chronic (15) S/P colostomy Status: Chronic (16) S/P CELL TESTER shunt Status: Chronic (17) History of skin graft Status: Chronic (18) Status post cystoscopy Status: Chronic (19) Pneumonia Status: Resolved (20) Pressure sore Status: Chronic Home Meds Active Scripts Ondansetron (ONDANSETRON ODT) 4 Mg Tab.rapdis, 1 TAB PO Q12H, #30 TAB 1 Refill Prov:LENIN ANTONIO APRN MIS MANAGER-C 03/15/18 Oxycodone Hcl 20 Mg Tab (OXYCODONE HCL 20 MG TAB) 20 Mg Tablet, 1 TAB PO Q6H Y for PAIN, #120 TAB 0 Refills Prov:LENIN ANTONIO APRN MIS MANAGER-C 02/26/18 Atorvastatin Calcium (ATORVASTATIN CALCIUM) 40 Mg Tablet, 1 TAB PO QHS, #90 TAB 1 Refill Prov:LENIN ANTONIO APRN MIS MANAGER-C 02/21/18 Cefuroxime Axetil (CEFUROXIME) 500 Mg Tablet, 500 MG PO BID for 5 Days, #10 TAB Prov:ANDER CAMPOS MD 02/19/18 Ferrous Sulfate (FERROUS SULFATE) 325 Mg Tablet, 1 TAB PO BID, #180 TAB 0 Refills Prov:LENIN ANTONIO APRN MIS MANAGER-C 02/06/18 Gabapentin (GABAPENTIN) 600 Mg Tablet, 600 MG PO TID, #270 TAB 1 Refill Prov:LENIN ANTONIO APRN MIS MANAGER-C 02/05/18 Warfarin Sodium (COUMADIN) 5 Mg Tablet, 1-1.5 TAB PO QDAY@13, #45 TAB 5 Refills 1.5 tabs every monday and 1 tab all other days Prov:LENIN ANTONOI APRN MIS MANAGER-C 01/31/18 Lactobacillus Rhamnosus Gg (CULTURELLE) 1 Each Capsule, 1 EACH PO NOON, #30 CAPSULE 0 Refills Prov:LENIN ANTONIO APRN MIS MANAGER-C 01/30/18 Amitriptyline Hcl (AMITRIPTYLINE HCL) 25 Mg Tablet, 25 MG PO QHS, #90 TAB 1 Refill Prov:LENIN ANTONIO APRN MIS MANAGER-C 01/30/18 Insulin Glargine 100 Un/Ml Pen (LANTUS SOLOSTAR PEN) 100 Unit/1 Ml Insuln.pen, 55 UNIT SUBQ QAM, #3 ML Prov:RODRIGO BARRIGA DO 01/11/18 Insulin Glargine 100 Un/Ml Pen (LANTUS SOLOSTAR PEN) 100 Unit/1 Ml Insuln.pen, 25 UNIT SUBQ QHS, #3 ML Prov:RODRIGO BARRIGA DO 01/11/18 Insulin Aspart 100 Un/Ml Pen (NOVOLOG FLEXPEN) 100 Unit/1 Ml Insuln.pen, 20 UNIT SUBQ TIDAC, #3 ML Prov:RODRIGO BARRIGA DO 01/11/18 Furosemide (FUROSEMIDE) 40 Mg Tablet, 40 MG PO QDAY, #30 TAB Prov:RODRIGO BARRIGA DO 01/11/18 Magnesium Oxide (MAGNESIUM OXIDE) 400 Mg Tablet, 1 TAB PO DAILY, #180 TAB 2 Refills Prov:JOHN DUQUE MD 12/21/17 [Ostomy Supplies] No Conflict Check Prov:LENIN ANTONIO APRN 12/21/17 NYSTATIN 234279 UNT/ML Topical Cream (NYSTATIN 009482 UNT/ML Topical Cream) 15 Gm Cream..g., 1 JAEL TP BID, #120 GM 2 Refills Apply to yeast infection twice daily until resolved then treat the area once daily M, W, F Prov:LENIN ANTONIO APRN 12/19/17 Trazodone Hcl (TRAZODONE HCL) 50 Mg Tablet, 50 MG PO QHS, #90 TAB 1 Refill Prov:LNEIN ANTONIO APRN 12/05/17 Metoprolol Succinate (TOPROL XL) 50 Mg Tab.er.24h, 0.5 TAB PO QDAY, #30 TAB 5 Refills Prov:LENIN ANTONIO APRN 03/20/17 Reported Medications Oxygen (OXYGEN) Inha, 2 L INH, L 12/26/17 Duloxetine Hcl (CYMBALTA) 30 Mg Capsule.dr, 30 MG PO QDAY, #5 CAP 12/21/17 Aspirin (ASPIRIN) 81 Mg Tab.chew, 81 MG PO QDAY, TAB.CHEW 12/02/17 Discontinued Reported Medications Lactose-Free Food (ENSURE CLEAR) 296 Ml Liquid, 296 ML PO HS 12/21/17 Morphine Sulfate 15 Mg Er Tab (MORPHINE SULFATE 15 MG ER TAB) 15 Mg Tablet.er, 1 TAB PO Q12H 12/05/17 Discontinued Scripts Azithromycin 250 Mg Tab (AZITHROMYCIN 250 MG TAB) 250 Mg Tablet, 1 TAB PO QDAY for 4 Days, #4 TAB Prov:ANDER CAMPOS MD 02/19/18 Tigecycline (TYGACIL) 50 Mg Vial, 50 MG IV Q12H, #56 VIAL Prov:RODRIGO BARRIGA DO 01/11/18 Pantoprazole Sodium (PANTOPRAZOLE SODIUM) 40 Mg Tablet.dr, 40 MG PO HS, #90 TAB.SR 1 Refill Prov:JOHN DUQUE MD 12/21/17 Allergies: Coded Allergies: vancomycin (Verified Allergy, Severe, Respiratory arrest due to bronchospasm, 03/26/18) Respiratory arrest due to bronchospasm ciprofloxacin (Verified Allergy, Intermediate, TINGLING, 03/26/18) clindamycin (Verified Allergy, Intermediate, RASH, 03/26/18) perflutren (Verified Adverse Reaction, Severe, Respiratory Arrest, 03/26/18 ) amoxicillin (Verified Adverse Reaction, Mild, N/V/D, 03/26/18) 07/2017: Pt tolerated Unasyn without difficulty clavulanic acid (Verified Adverse Reaction, Mild, N/V/D, 03/26/18) Uncoded Allergies: contrast definity (Allergy, Severe, MENTAL STATUS CHANGES, 08/15/17) went unresponsive Patient History: FH: HTN (hypertension) FATHER BROTHER OR SISTER FH: bladder cancer FATHER FH: diabetes mellitus FATHER MOTHER BROTHER OR SISTER BROTHER OR SISTER NC (myocardial infarction) FATHER Hx Smoking: No Smoking Status: Never Smoker Exposure to Second Hand Smoke?: Yes Caffeine Intake: Tea Caffeine/Cups Per Day: 4-5 Hx Alcohol Use: Yes Hx Substance Use Disorder: No Social Drug Use: Never Review of Systems Constitutional: Fever, Chills Neurological: Syncope (near), Weakness Eyes: No Vision Change, No Loss of Vision ENT: Sinus Congestion, No Hearing Loss Cardiovascular: Chest Pain, No Palpitations, No Orthostatic Hypotension Respiratory: Shortness of Breath, Cough Gastrointestinal: No Nausea, No Vomiting, Diarrhea (loose ostomy stools) Genitourinary: Other (chronic Muñoz cath) Musculoskeletal: Pain Psychiatric: Depression Exam Vital Signs Vital Signs Date Time Temp Pulse Resp B/P (MAP) Pulse Ox O2 Delivery O2 Flow Rate FiO2 03/26/18 20:18 101.3 129 24 140/78 (98) 97 Nasal Cannula 4.0 General Appearance: Alert, Awake Neuro: Other (bilateral lower extremity paresis - unchanged) Eyes: PERRLA ENT: Oropharynx Clear Neck: Other (short/thick/garcia/difficult to assess for JVD) Cardiovascular: Regular Rate and Rhythm (distant tones) Respiratory: Other (poor effort, but no obvious rales/wheezes) Chest: No Tenderness GI: Abd Soft and Non-Tender (obese/BS present/ostomy left mid abdomen) : No CVA Tenderness Lymph: No Adenopathy Extremities: Warm, Perfused, Edema (1+ both LE) Integumentary: Generalized Fragile Skin, Other (approximately2.5-3cm diameter ulcer over left ischial/buttock area/appears to have clean base/small scab-like lesion over posterior-most aspect of scrotum/ximena changes in virtually all skin folds and perineal area) Psych: Alert & Oriented X3 Medical Decision Making Data Points Result Diagram: 03/26/18 1555 03/26/18 1555 Item Value Date Time Prothrombin Time 14.7 seconds H 03/26/18 1555 Prothromb Time International Ratio 1.14 03/26/18 1555 Activated Partial Thromboplast Time 30 seconds 03/26/18 1555 Albumin 3.2 g/dl L 03/26/18 1555 Total Protein 6.6 gm/dl 03/26/18 1555 Troponin I < 0.012 ng/ml 03/26/18 1555 Alkaline Phosphatase 162 U/L H 03/26/18 1555 Alanine Aminotransferase (ALT/SGPT) 20 U/L 03/26/18 1555 Aspartate Amino Transf (AST/SGOT) 27 U/L 03/26/18 1555 Total Bilirubin 0.3 mg/dl 03/26/18 1555 Calcium Level 9.0 mg/dl 03/26/18 1555 Lactate 2.0 mmol/L 03/26/18 1748 Urine Yeast (Budding) Few /HPF H 03/26/18 1849 Urine Yeast Few /HPF H 03/26/18 1849 Urine Mucus Few /HPF 03/26/18 1849 Urine Bacteria Few /HPF 03/26/18 1849 Urine Squamous Epithelial Cells Many /LPF H 03/26/18 1849 Urine WBC Clumps Few /HPF 03/26/18 1849 Urine WBC 297 /HPF 03/26/18 1849 Urine RBC 140 /HPF 03/26/18 1849 Urine Leukocyte Esterase Large H 03/26/18 1849 Urine Urobilinogen Negative mg/dL 03/26/18 1849 Urine Bilirubin Negative 03/26/18 1849 Urine Nitrite Positive H 03/26/18 184 Urine Blood Large 03/26/18 1849 Urine Ketones Negative mg/dL 03/26/18 184 Urine Glucose (UA) Negative mg/dL 03/26/18 184 Urine Protein 30 mg/dL 03/26/18 184 Urine Specific Parker 1.053 03/26/18 184 Urine pH 5.0 pH 03/26/181848 Urine Clarity Cloudy 03/26/181848 Urine Color Yellow 03/26/181848 EKG / Imaging Imaging PATIENT NAME: Rodrigue Phillips : 1960 MR: [id number] V: [id number] EXAM DATE: [id number] ORDERING PHYSICIAN: SOHA OTERO TECHNOLOGIST: Location: [facility] - [place], [place] Patient: Rodrigue Phillips : 1960 Visit/Account:[id number] Date of Sevice: 03/26/2018 CTA CHEST WW/O CNTR (PULM ANG) HISTORY: tachycardic with SOB and hypoxia TECHNIQUE: CTA chest with intravenous contrast attention to pulmonary arteries. Sagittal, coronal and slab 3D MIP coronal reconstructed images were also created for further evaluation and interpretation. CONTRAST: Isovue-370 80 mls. One of the following dose optimization techniques was utilized in the performance of this exam: Automated exposure control; adjustment of the mA and/ or kV according to the patient's size; or use of an iterative reconstruction technique. Specific details can be referenced in the facility's radiology CT exam operational policy. COMPARISON: CTA chest March 05, 2018. FINDINGS: Heart/coronary vessels: The heart is perhaps minimally enlarged. There is coronary artery calcification. There is no pericardial effusion. Pulmonary arteries: In the segmental and subsegmental branches supplying the right lower lobe medial basal segments there is underfilling of the pulmonary arteries that is similar to what has been noted in the past. It likely represents either chronic PE or artifact related to consistent underfilling. There are no definitive new filling defect to suggest pulmonary embolus. Thoracic aorta: No findings of dissection or aneurysmal dilatation. Mediastinum: There are mildly enlarged lymph nodes in the right paratracheal region and pretracheal region that were noted on the prior exam. Lymph nodes: There is no axillary lymphadenopathy. Lungs/pleura: There is no infiltrate or pleural effusion. Visualized upper abdomen: Negative. Bones/soft tissues: No vertebral body compression fracture seen. Mild discogenic degenerative changes in thoracic spine. IMPRESSION: 1. There is no finding of a new filling defect to suggest pulmonary embolus. There is underfilling of a segmental and subsegmental branch vessels in the medial basal segment of the right lower lobe that represents a stable and chronic finding. 2. Right paratracheal lymph node measuring 1.0 x 1.5 cm in size unchanged when compared to the prior exam. Small lymph nodes noted elsewhere in the pretracheal region and benito. They appear probably stable. Results were called to SOHA OTERO M.D. At 03/26/2018 6:45 PM. Report Dictated By: Dylon Conklin MD at 03/26/2018 6:35 PM Report E-Signed By: Dylon Conklin MD at 03/26/2018 6:55 PM [id number] Assessment and Plan Problems: (1) Fever Status: Acute Assessment & Plan: It appears he could have a recurrent UTI vs. possible recurrent bacteremia related to his non-functional CSF shunt. He has been told he is not a candidate to have the shunt removed due to very high risk. He has been managed with long course IV antibiotics followed by life-long suppressive therapy. He has had cultures of blood and urine done in the ER. Based on his previous cultures, will start ertapenem and tigecycline until we get results. (2) Candidal intertrigo Status: Acute Assessment & Plan: Nystatin powder. Try to keep dry. (3) Decubitus ulcer Status: Acute Assessment & Plan: Will have PT wound care see. Try to keep his weight off the area. (4) Type 2 diabetes mellitus Status: Chronic Assessment & Plan: He has been on Lantus 75units AM and 65units PM, but also does not follow diet at home and previously has had problems with hypoglycemia when on ADA diet in hospital. Will reduce to 55units AM and 25units PM and use SSI as needed. (5) Chronic pain Status: Chronic Assessment & Plan: Will continue his oxycodone. Apparently, he is no longer taking the oral morphine. (6) Hx of deep venous thrombosis Status: Chronic Assessment & Plan: He has been managed with oral warfarin, but currently has sub-therapeutic INR. Will place on full dose Lovenox. Will continue on warfarin , but increase from his current 5mg daily to 5mg daily except 7.5mg on MON and MON. Watch lab. Copies to: LENIN ANTONIO APRN MIS MANAGER-C Venous Thromboembolism Antithrombotics Is Pt On Any Antithrombotics?: Yes Exam Sepsis Risk: Possible Sepsis Risk ANTHONY DUQUE MD Mar 26, 2018 20:49
[2018-03-26] MEDS ORDERED: ENOXAPARIN 100 MG/ML SYR SC SCH (21:00)
[2018-03-26] MEDS ORDERED: ENOXAPARIN 30 MG/0.3 ML SYR SC SCH (21:00)
[2018-03-26] MEDS: NYSTATIN 100,000 U/GM PWD 15GM TP SCH (21:16)
[2018-03-26] MEDS: TIGECYCLINE 50 MG INJS 50 MG in NS(*) 0.9% 100 ML BAG 100 ML IVPB SCH (21:16)
[2018-03-26] MEDS: GABAPENTIN 300 MG CAP PO SCH (21:17)
[2018-03-26] MEDS: ATORVASTATIN 40 MG TAB PO SCH (21:17)
[2018-03-26] MEDS: PANTOPRAZOLE SOD 40 MG TABEC PO SCH (21:17)
[2018-03-26] MEDS: INSULIN GLARGINE 100 U/ML 3 ML PEN SUBQ SCH (21:26)
[2018-03-26] MEDS: NS(*) 0.9% 1000 ML BAG 1,000 ML IV PRN (21:27)
[2018-03-26] MEDS: ERTAPENEM(*) 1 GM VIAL 1 GM in NS(*) 0.9% 100 ML ADDVANT BAG 100 ML IVPB SCH (22:09)
[2018-03-26 22:14] VITALS: BP 137/100
[2018-03-26] MEDS ORDERED: IBUPROFEN 600 MG TAB PO ONE (23:40)
[2018-03-27] VITALS (10 sets, daily range): BP systolic 82–115; BP diastolic 46–75
[2018-03-27] MEDS: oxyCODONE HCL 5 MG CAP PO PRN ×3 (00:35→20:03)
[2018-03-27] MEDS ORDERED: NS(*) 0.9% 250 ML BAG 250 ML in NS(*) 0.9% 250 ML BAG 250 ML IV ONE (03:05)
[2018-03-27] MEDS: ACETAMINOPHEN 325 MG TAB PO PRN ×2 (03:33→17:54)
[2018-03-27 06:08] LABS: PLATELET COUNT, AUTOMATED 169 K/uL (150-450)
[2018-03-27 06:14] LABS: INR 1.26
[2018-03-27] MEDS ORDERED: MAGNESIUM SUL* 2 GM/50 ML IVPB 50 ML IVPB ONE (08:40)
[2018-03-27] MEDS: NYSTATIN 100,000 U/GM PWD 15GM TP SCH ×2 (09:00→21:48)
[2018-03-27] MEDS: MAGNESIUM OXIDE 400 MG TAB PO SCH (09:17)
[2018-03-27] MEDS: NS(*) 0.9% 1000 ML BAG 1,000 ML IV PRN (09:17)
[2018-03-27] MEDS: ASPIRIN 81 MG CHEW PO SCH (09:17)
[2018-03-27] MEDS: METOPROLOL SUCC XL 25 MG TABCR PO SCH (09:17)
[2018-03-27] MEDS: DULoxetine HCL 30 MG CAPCR PO SCH (09:17)
[2018-03-27] MEDS: GABAPENTIN 300 MG CAP PO SCH ×3 (09:17→21:46)
[2018-03-27] MEDS: INSULIN GLARGINE 100 U/ML 3 ML PEN SUBQ SCH ×2 (09:18→21:48)
[2018-03-27] MEDS: TIGECYCLINE 50 MG INJS 50 MG in NS(*) 0.9% 100 ML BAG 100 ML IVPB SCH ×2 (09:31→21:46)
--- NOTE | 2018-03-27 09:38 | Hospitalist Progress Note ---
Subjective Progress Notes Subjective Mr. Phillips is a 57yo male with extensive PMHx of recurrent UTIs due to indwelling Muñoz cath because of his underlying condition Spina Bifida, Recurrent bacteremia felt to be secondary to failed CSF/PSYCHIATRIC NURSE PRACTITIONER shunt, DM-II, CAD, HTN, Obesity/THOMAS, Previous Walter's gangrene, Recurrent decubitus ulcers. He has been on chronic antibiotic suppressive oral Duricef therapy. He was evaluated in the ER and found to have fever, elevated WBC count, and evidence of possible UTI. He was admiited for further evaluation and management. He is allergic to Vancomycin and he received Ertepanem and Tigecycline. 03/27; He spiked 104F fever last night with episode of hypotension. He received IVF and this am his BP is 110/60 and he is afebrile. His Blood Cx grew GPC inn anaerobic bottle. He received sleeping pill last night and he feels drowsy this am. He denies any other complaint. Patient Complains of: Neurological: Confusion, No: Weakness, Dizziness Cardiovascular: No: Chest Pain, Palpitations Respiratory: No: Cough, Congestion, Shortness of Breath Gastrointestinal: No Nausea, No Vomiting Genitourinary: No Dysuria, No Hematuria Musculoskeletal: No: Pain, Sprain, Strain Physical Exam Vital Signs Date Time Temp Pulse Resp B/P (MAP) Pulse Ox O2 Delivery O2 Flow Rate FiO2 03/27/18 08:19 97.8 96 16 111/60 (77) 98 Nasal Cannula 4.0 General Appearance: Awake, No Acute Distress, Afebrile, Other (drowsy) Neuro: No Gross deficits Eyes: PERRLA ENT: Normal Cardiovascular: Normal Rhythm & Peripheral Pulses GI: Soft and Non-Tender Extremities: Soft and Non Tender Psych: Appropriate Mood & Affect, Other (drowsy) Result Diagram: 03/27/1852603/27/18526 Monitor Interpretation: Sinus Tachycardia Assessment and Plan Problems: (1) Fever Status: Acute Assessment & Plan: It appears he could have a recurrent UTI vs. possible recurrent bacteremia related to his non-functional CSF shunt. He has been told he is not a candidate to have the shunt removed due to very high risk. He has been managed with long course IV antibiotics followed by life-long suppressive therapy. He has had cultures of blood and urine done in the ER. Based on his previous cultures, will start ertapenem and tigecycline until we get results. 03/27: His Blood CX came back positive for GPC in aerobic and anaerobic. He is fully covered with broad spectrum antibiotics and I will continue his present management and follow his culture ID/S. I will get CBC, BMP in am (2) Candidal intertrigo Status: Acute Assessment & Plan: Nystatin powder. Try to keep dry. (3) Decubitus ulcer Status: Acute Assessment & Plan: Will have PT wound care see. Try to keep his weight off the area. (4) Type 2 diabetes mellitus Status: Chronic Assessment & Plan: He has been on Lantus 75units AM and 65units PM, but also does not follow diet at home and previously has had problems with hypoglycemia when on ADA diet in hospital. Will reduce to 55units AM and 25units PM and use SSI as needed. (5) Chronic pain Status: Chronic Assessment & Plan: Will continue his oxycodone. Apparently, he is no longer taking the oral morphine. (6) Hx of deep venous thrombosis Status: Chronic Assessment & Plan: He has been managed with oral warfarin, but currently has sub-therapeutic INR. Will place on full dose Lovenox. Will continue on warfarin , but increase from his current 5mg daily to 5mg daily except 7.5mg on MON and MON. Watch lab. 03/27: I will increase his Coumadin dose to 7.5 and recheck his PT/INR in am. I will stop his Lovenox 30mg and continue 120mg bid (7) Hypomagnesemia Status: Acute Assessment & Plan: I will start Mag. Sulphate 2gm IVPB today and check his Mag level in am. He is also on Mag. Oxide orally Central Venous Access Medical Necessity for Access: IV Access, Medication Administration Condition Guarded Time Spent on Plan of Care: > 30 min Copies to: LENIN ANTONIO APRN FRUIT AND VEGETABLE INSPECTOR-C Exam Sepsis Risk: Sepsis Risk NARINDER RUFFIN MD Mar 27, 2018 09:37
[2018-03-27] MEDS ORDERED: WARFARIN SOD 7.5 MG TAB PO SCH (13:00)
[2018-03-27] MEDS: INSULIN HUM LISPRO 100 UN/ML 3 ML VIAL SUBQ PRN ×2 (17:49→20:33)
[2018-03-27] MEDS: PANTOPRAZOLE SOD 40 MG TABEC PO SCH (21:46)
[2018-03-27] MEDS: ENOXAPARIN 100 MG/ML SYR SC SCH (21:47)
[2018-03-27] MEDS: ATORVASTATIN 40 MG TAB PO SCH (21:47)
[2018-03-27] MEDS: ERTAPENEM(*) 1 GM VIAL 1 GM in NS(*) 0.9% 100 ML ADDVANT BAG 100 ML IVPB SCH (22:27)
[2018-03-28] MEDS: NS(*) 0.9% 1000 ML BAG 1,000 ML IV PRN ×2 (02:18→17:10)
[2018-03-28] MEDS: oxyCODONE HCL 5 MG CAP PO PRN ×4 (02:26→21:54)
[2018-03-28] MEDS: ACETAMINOPHEN 325 MG TAB PO PRN ×2 (02:26→08:49)
[2018-03-28 03:22] VITALS: BP 101/70
[2018-03-28 06:01] LABS: PLATELET COUNT, AUTOMATED 170 K/uL (150-450)
[2018-03-28 06:06] LABS: INR 1.12
[2018-03-28 07:36] VITALS: BP 107/68
[2018-03-28] MEDS ORDERED: MAGNESIUM SUL* 2 GM/50 ML IVPB 50 ML IVPB ONE (08:00)
[2018-03-28] MEDS ORDERED: guaiFENesin SYRP 100MG/5ML UDC PO PRN (08:00)
[2018-03-28] MEDS ORDERED: ONDANSETRON 4 MG/2 ML VIAL IVP PRN (08:00)
[2018-03-28] MEDS: DULoxetine HCL 30 MG CAPCR PO SCH (08:49)
[2018-03-28] MEDS: ASPIRIN 81 MG CHEW PO SCH (08:50)
[2018-03-28] MEDS: GABAPENTIN 300 MG CAP PO SCH ×3 (08:50→21:09)
[2018-03-28] MEDS: METOPROLOL SUCC XL 25 MG TABCR PO SCH (08:50)
[2018-03-28] MEDS: ENOXAPARIN 100 MG/ML SYR SC SCH ×2 (08:51→21:10)
[2018-03-28] MEDS: MAGNESIUM OXIDE 400 MG TAB PO SCH (08:51)
[2018-03-28] MEDS: INSULIN GLARGINE 100 U/ML 3 ML PEN SUBQ SCH ×2 (08:52→21:11)
[2018-03-28] MEDS: NYSTATIN 100,000 U/GM PWD 15GM TP SCH ×2 (08:53→21:17)
--- NOTE | 2018-03-28 09:56 | Hospitalist Progress Note ---
Subjective Progress Notes Subjective Mr. Phillips is a 57yo male with extensive PMHx of recurrent UTIs due to indwelling Muñoz cath because of his underlying condition Spina Bifida, Recurrent bacteremia felt to be secondary to failed CSF/KNOCKOUT WORKER shunt, DM-II, CAD, HTN, Obesity/THOMAS, Previous Walter's gangrene, Recurrent decubitus ulcers. He has been on chronic antibiotic suppressive oral Duricef therapy. He was evaluated in the ER and found to have fever, elevated WBC count, and evidence of possible UTI. He was admiited for further evaluation and management. He is allergic to Vancomycin and he received Ertepanem and Tigecycline. 03/27; He spiked 104F fever last night with episode of hypotension. He received IVF and this am his BP is 110/60 and he is afebrile. His Blood Cx grew GPC inn anaerobic bottle. He received sleeping pill last night and he feels drowsy this am. He denies any other complaint. 03/28: He developed low grade fever last night 100.7F. He c/o cough and chest consuelo due to his cough. His WBC are improving to 9K. His Blood and Urine Cx are pending for ID/S. His INR is still low 1.12 and he is on Coumadin and Lovenox 120mg bid. His Mag level is 1.6. Patient Complains of: Neurological: No: Confusion, Weakness, Dizziness Cardiovascular: No: Chest Pain, Palpitations Respiratory: Cough, No: Congestion, Shortness of Breath Gastrointestinal: Nausea, No Vomiting Genitourinary: Urinary Incontinence, No Dysuria, No Hematuria Musculoskeletal: Impaired Mobility, No: Pain, Sprain, Strain Physical Exam Vital Signs Date Time Temp Pulse Resp B/P (MAP) Pulse Ox O2 Delivery O2 Flow Rate FiO2 03/28/18 07:42 92 Nasal Cannula 3.0 03/28/18 07:36 98.7 105 18 107/68 (81) General Appearance: Alert, Awake, No Acute Distress, Other (low grade fever) Neuro: No Gross deficits Eyes: PERRLA ENT: Normal Cardiovascular: Other (sinus tach) Respiratory: No Respiratory Distress GI: Soft and Non-Tender Extremities: Soft and Non Tender, Edema Psych: Alert & Oriented X3, Appropriate Mood & Affect Result Diagram: 03/28/1852103/28/18521 Monitor Interpretation: Sinus Tachycardia Assessment and Plan Problems: (1) Fever Status: Acute Assessment & Plan: It appears he could have a recurrent UTI vs. possible recurrent bacteremia related to his non-functional CSF shunt. He has been told he is not a candidate to have the shunt removed due to very high risk. He has been managed with long course IV antibiotics followed by life-long suppressive therapy. He has had cultures of blood and urine done in the ER. Based on his previous cultures, will start ertapenem and tigecycline until we get results. 03/27: His Blood CX came back positive for GPC in aerobic and anaerobic. He is fully covered with broad spectrum antibiotics and I will continue his present management and follow his culture ID/S. I will get CBC, BMP in am 03/28: I will continue his antibiotics for now. His WBC are improving. I will get CXR and start Robitussin for his cough. (2) Candidal intertrigo Status: Chronic Assessment & Plan: Nystatin powder. Try to keep dry. (3) Decubitus ulcer Status: Chronic Assessment & Plan: Will have PT wound care see. Try to keep his weight off the area. (4) Type 2 diabetes mellitus Status: Chronic Assessment & Plan: He has been on Lantus 75units AM and 65units PM, but also does not follow diet at home and previously has had problems with hypoglycemia when on ADA diet in hospital. Will reduce to 55units AM and 25units PM and use SSI as needed. (5) Chronic pain Status: Chronic Assessment & Plan: Will continue his oxycodone. Apparently, he is no longer taking the oral morphine. (6) Hx of deep venous thrombosis Status: Chronic Assessment & Plan: He has been managed with oral warfarin, but currently has sub-therapeutic INR. Will place on full dose Lovenox. Will continue on warfarin , but increase from his current 5mg daily to 5mg daily except 7.5mg on MON and MON. Watch lab. 03/27: I will increase his Coumadin dose to 7.5 and recheck his PT/INR in am. I will stop his Lovenox 30mg and continue 120mg bid 03/28: I will increase his Coumadin to 10mg today and repeat his PT/INR in am. I will continue Lovenox (7) Hypomagnesemia Status: Acute Assessment & Plan: I will start Mag. Sulphate 2gm IVPB today and check his Mag level in am. He is also on Mag. Oxide orally 03/28: I will use another dose of Mag. Sulphate 2gm IVPB today and repeat his Mag level in am Central Venous Access Medical Necessity for Access: IV Access, Medication Administration Exam Sepsis Risk: Severe Sepsis Risk NARINDER RUFFIN MD Mar 28, 2018 09:56
--- NOTE | 2018-03-28 10:01 | RADIOLOGY IMAGING REPORT ---
FACILITY: [facility] - [place] PATIENT NAME: Rodrigue Phillips : 1960 MR: [id number] V: [id number] EXAM DATE: ORDERING PHYSICIAN: NARINDER RUFFIN TECHNOLOGIST: Location: [facility] - [place] Patient: Rodrigue Phillips : 1960 Visit/Account:[id number] Date of Sevice: 03/28/2018 Portable chest, one view. HISTORY: Cough, fever. COMPARISON: 03/26/2018. EKG leads project on the chest. The heart size is normal. The mediastinum is unremarkable. Pulmonary vessels are normal. Mild bronchial thickening is present bilaterally. The lungs are otherwise clear. The pleural surfaces are unremarkable. No acute bony abnormalities. IMPRESSION: Mild bronchial thickening. Otherwise no evidence of acute cardiopulmonary disease. Report Dictated By: Rei Sales MD at 03/28/2018 9:55 AM Report E-Signed By: Rei Sales MD at 03/28/2018 9:57 AM [id number]
[2018-03-28] MEDS: TIGECYCLINE 50 MG INJS 50 MG in NS(*) 0.9% 100 ML BAG 100 ML IVPB SCH ×2 (10:11→21:10)
[2018-03-28 10:45] VITALS: BP 106/67
[2018-03-28] MEDS ORDERED: WARFARIN SOD 5 MG TAB PO SCH (13:00)
--- NOTE | 2018-03-28 13:05 | Medical Nutrition Therapy ---
Nutrition Anthropometrics Height (Inches): 67.00 Height (Calculated Centimeters: 170.846541 Weight (Pounds): 306 Weight (Calculated Kilograms): 139.026 Delfino Nutrition Score: Adequate Delfino Nutrition Risk Score: 15 Dietary Referral Nutrition Risk Factors: Special Diet Nutrition Risk Comment: Diabetic Physical Findings Physical Appearance: Morbidly Obese 40+ Skin Appearance Skin Appearance: Edema Edema Location Modifier: Both Edema Location: Lower Extremity Type of Edema: Degree of Edema: 1+ Gastrointestinal Symptoms GI Symtoms: Heartburn Tube Present: Bowel Sounds: Recent Bowel Pattern: Diarrhea Stool Characteristics: Loose Nutritional Diagnosis Nutritional Risk Acuity 2: Abcess/Non-Healing Wound Nutritional Risk Acuity 3: Fair Appetite, ST I/II Pressure Ulcer Past Medical History: hx abdominal surgery, colostomy, Type IIDM, Indwelling catheter, Frequent UTI, Spina Bifida, GERD, THOMAS, Neurogenic bladder, Syncope, Dizziness, pulmonary embolus, deep venous thrombosis, small bowel obstruction, Decubitus ulcer, CAD, hypomagnesemia, Candidal intertrigo Nutritional Acuity: 2-Moderate Nutrition Diagnosis: Increased Nutrient Needs, Over-weight/Obesity Nutrition Etiology: Excesssive Nutr. Intake, Physiological Causes Nutrition Problem/Etiology/Sym: Increase nutrient and fluid needs related to physiological causes as evidence by sepsis UTI. Over-weight/obesity related to excessiive food intake as evidence by BMI 48. Energy Requirement: 2214 (Peace benedict adj REE BMI>27.5) Protein Requirement: 139 (1g/kg) Fluid Requirement: 4170 (30ml/kg) Diet Type: Diabetic ([address] order) Do Not Serve Any of the Follow: Broccoli, Brussel Sprouts, Spinach, [place] Lettuce, Cranberry Juice Nutrition Monitoring & Eval Nutrition Goals: Drink > 2 liters/day RD Patient Assessment Time: [address] Assessment Type: RD Assessment Patient Nutrition Acuity: 2-Moderate Follow Up Date: Mar 30, 2018 Nutritional Comment: 03/27 Pt admitted for sepsis UTI. Pt is on 2200 calorie ADA diet allowing the pt to consume 75g CHO per meal with no intake recorded at this time. Pt is experiencing cough, pain, chills, aches and fever (104 F degrees). Pt states that he has poor appetite the past few days. Pt is T2DM and does not follow an ADA diet at home. Pt has hx of recurrent septic UTIs. Pt has low Mg (1.3) and has begun Mg supplement. Pt has low creatinine (.6) and alb (2.5). Will continue to monitor pt progress, labs and encourage intake. SHANDA PHAM Mar 27, 2018 10:38
[2018-03-28] MEDS: WARFARIN SOD 5 MG TAB PO SCH (13:30)
[2018-03-28 14:54] VITALS: BP 109/64
[2018-03-28] MEDS: INSULIN HUM LISPRO 100 UN/ML 3 ML VIAL SUBQ PRN ×2 (16:44→21:32)
[2018-03-28 19:28] VITALS: BP 107/67
[2018-03-28] MEDS: PANTOPRAZOLE SOD 40 MG TABEC PO SCH (21:09)
[2018-03-28] MEDS: ATORVASTATIN 40 MG TAB PO SCH (21:09)
[2018-03-28] MEDS: ERTAPENEM(*) 1 GM VIAL 1 GM in NS(*) 0.9% 100 ML ADDVANT BAG 100 ML IVPB SCH (22:19)
[2018-03-28 23:06] VITALS: BP 126/73
[2018-03-29] MEDS: ACETAMINOPHEN 325 MG TAB PO PRN ×3 (01:55→20:56)
[2018-03-29] MEDS: oxyCODONE HCL 5 MG CAP PO PRN ×3 (01:56→20:54)
[2018-03-29 02:31] VITALS: BP 128/75
[2018-03-29 06:27] LABS: PLATELET COUNT, AUTOMATED 220 K/uL (150-450)
[2018-03-29 06:37] LABS: INR 1.47
[2018-03-29] MEDS: TIGECYCLINE 50 MG INJS 50 MG in NS(*) 0.9% 100 ML BAG 100 ML IVPB SCH (08:50)
[2018-03-29 08:57] VITALS: BP 127/84
[2018-03-29] MEDS: INSULIN GLARGINE 100 U/ML 3 ML PEN SUBQ SCH (09:24)
[2018-03-29] MEDS: METOPROLOL SUCC XL 25 MG TABCR PO SCH (09:24)
[2018-03-29] MEDS: ENOXAPARIN 100 MG/ML SYR SC SCH ×2 (09:24→20:39)
[2018-03-29] MEDS: DULoxetine HCL 30 MG CAPCR PO SCH (09:24)
[2018-03-29] MEDS: GABAPENTIN 300 MG CAP PO SCH ×3 (09:24→20:38)
[2018-03-29] MEDS: MAGNESIUM OXIDE 400 MG TAB PO SCH (09:24)
[2018-03-29] MEDS: ASPIRIN 81 MG CHEW PO SCH (09:24)
[2018-03-29] MEDS: NYSTATIN 100,000 U/GM PWD 15GM TP SCH ×2 (09:28→20:40)
[2018-03-29] MEDS: NS(*) 0.9% 1000 ML BAG 1,000 ML IV PRN (09:36)
--- NOTE | 2018-03-29 09:59 | Hospitalist Progress Note ---
Subjective Progress Notes Subjective Afebrile for 24 hours. He reporting continued diffuse tenderness and cough. Eating well. Glucose 48 this morning, but was asymptomatic. Physical Exam Vital Signs Date Time Temp Pulse Resp B/P (MAP) Pulse Ox O2 Delivery O2 Flow Rate FiO2 03/29/18 08:57 97.9 99 16 127/84 (98) 98 Nasal Cannula 3.0 Intake and Output 03/30/18 07:00 Intake Total 360 ml Balance 360 ml Intake Oral 360 ml General Appearance: Alert, Awake, No Acute Distress Cardiovascular: Regular Rate and Rhythm Respiratory: Clear to Auscultation Result Diagram: 03/29/18 0540 03/29/18 0540 Monitor Interpretation: Sinus Tachycardia Assessment and Plan Problems: (1) Fever Status: Acute Assessment & Plan: It appears he could have a recurrent UTI vs. possible recurrent bacteremia related to his non-functional CSF shunt. He has been told he is not a candidate to have the shunt removed due to very high risk. He has been managed with long course IV antibiotics followed by life-long suppressive therapy. He has had cultures of blood and urine done in the ER. Based on his previous cultures, will start ertapenem and tigecycline until we get results. 03/27: His Blood CX came back positive for GPC in aerobic and anaerobic. He is fully covered with broad spectrum antibiotics and I will continue his present management and follow his culture ID/S. I will get CBC, BMP in am 03/28: I will continue his antibiotics for now. His WBC are improving. I will get CXR and start Robitussin for his cough. 03/29: Afebrile for 24 hours. Continue current treatment and awaiting final culture results. Will reculture blood to look for clearance of infection. (2) Type 2 diabetes mellitus Status: Chronic Assessment & Plan: He has been on Lantus 75units AM and 65units PM, but also does not follow diet at home and previously has had problems with hypoglycemia when on ADA diet in hospital. He was reduced to 55units AM and 25units PM and use SSI as needed, but had a low glucose this morning and is overall trending lower with glucose. Will stop his PM dose of Lantus. (3) Hx of deep venous thrombosis Status: Chronic Assessment & Plan: He has been managed with oral warfarin, but currently has sub-therapeutic INR. Will place on full dose Lovenox. Will continue on warfarin , but increase from his current 5mg daily to 5mg daily except 7.5mg on MON and MON. Watch lab. 03/27: I will increase his Coumadin dose to 7.5 and recheck his PT/INR in am. I will stop his Lovenox 30mg and continue 120mg bid 03/28: I will increase his Coumadin to 10mg today and repeat his PT/INR in am. I will continue Lovenox 03/29: Still subtherapeutic. Continue Lovenox and daily INR. (4) Candidal intertrigo Status: Chronic Assessment & Plan: Nystatin powder. Try to keep dry. (5) Decubitus ulcer Status: Chronic Assessment & Plan: PT wound care following. Try to keep his weight off the area. (6) Chronic pain Status: Chronic Assessment & Plan: Will continue his oxycodone. Apparently, he is no longer taking the oral morphine. (7) Hypomagnesemia Status: Acute Assessment & Plan: I will start Mag. Sulphate 2gm IVPB today and check his Mag level in am. He is also on Mag. Oxide orally 03/28: I will use another dose of Mag. Sulphate 2gm IVPB today and repeat his Mag level in am 03/29: Mg wnl this morning. Central Venous Access Medical Necessity for Access: IV Access, Medication Administration Exam Sepsis Risk: No Definite Risk ARSH DACOSTA MD Mar 29, 2018 09:59
[2018-03-29] MEDS: WARFARIN SOD 5 MG TAB PO SCH (13:27)
--- NOTE | 2018-03-29 14:12 | Medical Nutrition Therapy ---
Nutrition Anthropometrics Height (Inches): 67.00 Height (Calculated Centimeters: 170.078545 Weight (Pounds): 306 Weight (Calculated Kilograms): 139.026 Delfino Nutrition Score: Adequate Delfino Nutrition Risk Score: 15 Dietary Referral Nutrition Risk Factors: Special Diet Nutrition Risk Comment: Diabetic Physical Findings Physical Appearance: Morbidly Obese 40+ Skin Appearance Skin Appearance: Edema Edema Location Modifier: Both Edema Location: Lower Extremity Type of Edema: Degree of Edema: 1+ Gastrointestinal Symptoms GI Symtoms: Nausea, Change in Bowel Pattern Tube Present: Bowel Sounds: Recent Bowel Pattern: Diarrhea Stool Characteristics: Loose Nutritional Diagnosis Nutritional Risk Acuity 2: Abcess/Non-Healing Wound Nutritional Risk Acuity 3: Fair Appetite, ST I/II Pressure Ulcer Past Medical History: hx abdominal surgery, colostomy, Type IIDM, Indwelling catheter, Frequent UTI, Spina Bifida, GERD, THOMAS, Neurogenic bladder, Syncope, Dizziness, pulmonary embolus, deep venous thrombosis, small bowel obstruction, Decubitus ulcer, CAD, hypomagnesemia, Candidal intertrigo Nutritional Acuity: 2-Moderate Nutrition Diagnosis: Increased Nutrient Needs, Over-weight/Obesity Nutrition Etiology: Excesssive Nutr. Intake, Physiological Causes Nutrition Problem/Etiology/Sym: Increase nutrient and fluid needs related to physiological causes as evidence by sepsis UTI. Over-weight/obesity related to excessiive food intake as evidence by BMI 48. Energy Requirement: 2214 (Peace benedict adj REE BMI>27.5) Protein Requirement: 139 (1g/kg) Fluid Requirement: 4170 (30ml/kg) Diet Type: Diabetic ([address] order) Drug: Warfarin Do Not Serve Any of the Follow: Broccoli, Brussel Sprouts, Spinach, [place] Lettuce, Cranberry Juice Nutrition Monitoring & Eval Nutrition Goals: Eat 75-100% Meal RD Patient Assessment Time: [address] Assessment Type: RD Re-Assessment Patient Nutrition Acuity: 2-Moderate Follow Up Date: Apr 03, 2018 Nutritional Comment: 03/27 Pt admitted for sepsis UTI. Pt is on 2200 calorie ADA diet allowing the pt to consume 75g CHO per meal with no intake recorded at this time. Pt is experiencing cough, pain, chills, aches and fever (104 F degrees). Pt states that he has poor appetite the past few days. Pt is T2DM and does not follow an ADA diet at home. Pt has hx of recurrent septic UTIs. Pt has low Mg (1.3) and has begun Mg supplement. Pt has low creatinine (.6) and alb (2.5). Will continue to monitor pt progress, labs and encourage intake. MT 03/29 Pt continues on 2200 calorie ADA diet with 75% oral intake. Pt still feels tenderness and has cough. No fever at this time. Pt had low random blood glucose this morning (49),but was asymptomatic. Pt has elevated whole blood glucose (141). No other lab concerns. Doctor note states that they will reculture blood to look for clearance of infection. Will continue to monitor pt progress, labs and encourage intake. -MD SHANDA MARTINS Mar 29, 2018 14:10
[2018-03-29] MEDS ORDERED: SIMETHICONE 80 MG CHEW CHEW SCH (14:20)
[2018-03-29 19:15] VITALS: BP 105/74
[2018-03-29] MEDS: ATORVASTATIN 40 MG TAB PO SCH (20:38)
[2018-03-29] MEDS: PANTOPRAZOLE SOD 40 MG TABEC PO SCH (20:38)
[2018-03-29] MEDS: ceFAZolin(*) 1 GM VIAL 1 GM in NS(*) 0.9% 100 ML ADDVANT BAG 100 ML IV SCH (20:40)
[2018-03-29] MEDS ORDERED: ceFAZolin 1 GM VIAL IVP SCH (21:00)
[2018-03-29] MEDS: ERTAPENEM(*) 1 GM VIAL 1 GM in NS(*) 0.9% 100 ML ADDVANT BAG 100 ML IVPB SCH (22:40)
[2018-03-29 22:45] VITALS: BP 128/76
[2018-03-30] MEDS: NS(*) 0.9% 1000 ML BAG 1,000 ML IV PRN ×2 (03:48→21:09)
[2018-03-30] MEDS: ceFAZolin(*) 1 GM VIAL 1 GM in NS(*) 0.9% 100 ML ADDVANT BAG 100 ML IV SCH ×3 (05:28→21:08)
[2018-03-30 06:09] LABS: PLATELET COUNT, AUTOMATED 227 K/uL (150-450)
[2018-03-30 06:13] LABS: INR 2.4
[2018-03-30 07:30] VITALS: BP 155/86
[2018-03-30] MEDS ORDERED: INFLUENZA VIRUS VAC 0.5 ML SYR IM ONLY ONE (09:00)
[2018-03-30] MEDS: ASPIRIN 81 MG CHEW PO SCH (09:11)
[2018-03-30] MEDS: MAGNESIUM OXIDE 400 MG TAB PO SCH (09:11)
[2018-03-30] MEDS: GABAPENTIN 300 MG CAP PO SCH ×3 (09:11→21:09)
[2018-03-30] MEDS: METOPROLOL SUCC XL 25 MG TABCR PO SCH (09:11)
[2018-03-30] MEDS: DULoxetine HCL 30 MG CAPCR PO SCH (09:11)
[2018-03-30] MEDS: ENOXAPARIN 100 MG/ML SYR SC SCH (09:12)
[2018-03-30] MEDS: NYSTATIN 100,000 U/GM PWD 15GM TP SCH ×2 (09:13→21:09)
[2018-03-30] MEDS: INSULIN GLARGINE 100 U/ML 3 ML PEN SUBQ SCH (09:26)
[2018-03-30] MEDS: ACETAMINOPHEN 325 MG TAB PO PRN ×3 (09:26→21:41)
[2018-03-30] MEDS: oxyCODONE HCL 5 MG CAP PO PRN ×3 (09:27→21:41)
[2018-03-30 11:33] VITALS: BP 123/72
[2018-03-30] MEDS ORDERED: FLUCONAZOLE 200 MG/100ML PRMIX 100 ML IVPB ONE (12:00)
[2018-03-30] MEDS: WARFARIN SOD 5 MG TAB PO SCH (12:17)
[2018-03-30 19:40] VITALS: BP 99/58
--- NOTE | 2018-03-30 19:45 | Hospitalist Progress Note ---
Subjective Progress Notes Subjective Mr. Phillips is a 57yo male with extensive PMHx of recurrent UTIs due to indwelling Muñoz cath because of his underlying condition Spina Bifida, Recurrent bacteremia felt to be secondary to failed CSF/PATIENT CARE SPECIALIST shunt, DM-II, CAD, HTN, Obesity/THOMAS, Previous Walter's gangrene, Recurrent decubitus ulcers. He has been on chronic antibiotic suppressive oral Duricef therapy. He was evaluated in the ER and found to have fever, elevated WBC count, and evidence of possible UTI. He was admiited for further evaluation and management. He is allergic to Vancomycin and he received Ertepanem and Tigecycline. 03/27; He spiked 104F fever last night with episode of hypotension. He received IVF and this am his BP is 110/60 and he is afebrile. His Blood Cx grew GPC inn anaerobic bottle. He received sleeping pill last night and he feels drowsy this am. He denies any other complaint. 03/28: He developed low grade fever last night 100.7F. He c/o cough and chest consuelo due to his cough. His WBC are improving to 9K. His Blood and Urine Cx are pending for ID/S. His INR is still low 1.12 and he is on Coumadin and Lovenox 120mg bid. His Mag level is 1.6. 03/30: He developed shaking chills and diaphoresis today. His WBC are normal, he is afebrile and hemodynamically stable. He is on Ertapenem and Ancef. His UCX are still pending. His U/A has some yeast. Patient Complains of: Neurological: No: Confusion, Weakness, Dizziness Cardiovascular: No: Chest Pain, Palpitations Respiratory: Cough, No: Congestion, Shortness of Breath Gastrointestinal: No Nausea, No Vomiting Genitourinary: No Dysuria, No Hematuria Musculoskeletal: Impaired Mobility, No: Pain, Sprain, Strain Physical Exam Vital Signs Date Time Temp Pulse Resp B/P (MAP) Pulse Ox O2 Delivery O2 Flow Rate FiO2 03/30/18 11:33 99.9 112 16 123/72 (89) 94 Nasal Cannula 2.0 Intake and Output 03/31/18 07:00 Intake Total 1300 ml Output Total 2350 ml Balance -1050 ml Intake Oral 1300 ml Output Urine Total 2350 ml General Appearance: Alert, Awake, No Acute Distress, Afebrile Neuro: No Gross deficits Eyes: PERRLA ENT: Normal Neck: Other (big neck circumfrence) Cardiovascular: Other (tachycardia) Respiratory: No Respiratory Distress GI: Soft and Non-Tender (obese) Extremities: Soft and Non Tender, Edema Psych: Alert & Oriented X3, Appropriate Mood & Affect Result Diagram: 03/30/18 0545 03/30/18 0545 Monitor Interpretation: Sinus Tachycardia Assessment and Plan Problems: (1) Fever Status: Acute Assessment & Plan: It appears he could have a recurrent UTI vs. possible recurrent bacteremia related to his non-functional CSF shunt. He has been told he is not a candidate to have the shunt removed due to very high risk. He has been managed with long course IV antibiotics followed by life-long suppressive therapy. He has had cultures of blood and urine done in the ER. Based on his previous cultures, will start ertapenem and tigecycline until we get results. 03/27: His Blood CX came back positive for GPC in aerobic and anaerobic. He is fully covered with broad spectrum antibiotics and I will continue his present management and follow his culture ID/S. I will get CBC, BMP in am 03/28: I will continue his antibiotics for now. His WBC are improving. I will get CXR and start Robitussin for his cough. 03/29: Afebrile for 24 hours. Continue current treatment and awaiting final culture results. Will reculture blood to look for clearance of infection. 03/30: DX: Staph Aureus Bacteremia and Citrobacter Freundi and Yeast UTI I will get Blood CX today and stain for yeast and if patient spike I will get fungal cultures also I will continue the same antibiotics I will give one dose of Fluconazole 200mg IV I will get UCX result and direct his antibiotics in am I will get CBC, BMP, PT/INR (2) Type 2 diabetes mellitus Status: Chronic Assessment & Plan: He has been on Lantus 75units AM and 65units PM, but also does not follow diet at home and previously has had problems with hypoglycemia when on ADA diet in hospital. He was reduced to 55units AM and 25units PM and use SSI as needed, but had a low glucose this morning and is overall trending lower with glucose. Will stop his PM dose of Lantus. (3) Hx of deep venous thrombosis Status: Chronic Assessment & Plan: He has been managed with oral warfarin, but currently has sub-therapeutic INR. Will place on full dose Lovenox. Will continue on warfarin , but increase from his current 5mg daily to 5mg daily except 7.5mg on MON and MON. Watch lab. 03/27: I will increase his Coumadin dose to 7.5 and recheck his PT/INR in am. I will stop his Lovenox 30mg and continue 120mg bid 03/28: I will increase his Coumadin to 10mg today and repeat his PT/INR in am. I will continue Lovenox 03/29: Still subtherapeutic. Continue Lovenox and daily INR. 03/30: I will cut his dose to 5mg po qd I will repeat his INR in am (4) Candidal intertrigo Status: Chronic Assessment & Plan: Nystatin powder. Try to keep dry. (5) Decubitus ulcer Status: Chronic Assessment & Plan: PT wound care following. Try to keep his weight off the area. (6) Chronic pain Status: Chronic Assessment & Plan: Will continue his oxycodone. Apparently, he is no longer taking the oral morphine. (7) Hypomagnesemia Status: Resolved Assessment & Plan: I will start Mag. Sulphate 2gm IVPB today and check his Mag level in am. He is also on Mag. Oxide orally 03/28: I will use another dose of Mag. Sulphate 2gm IVPB today and repeat his Mag level in am 03/29: Mg wnl this morning. Central Venous Access Medical Necessity for Access: IV Access, Medication Administration Time Spent on Plan of Care: > 30 min Copies to: LENIN ANTONIO APRN [employer] SALES-C Exam Sepsis Risk: Severe Sepsis Risk NARINDER RUFFIN MD Mar 30, 2018 19:45
[2018-03-30] MEDS: ATORVASTATIN 40 MG TAB PO SCH (21:09)
[2018-03-30] MEDS: PANTOPRAZOLE SOD 40 MG TABEC PO SCH (21:09)
[2018-03-30] MEDS: ERTAPENEM(*) 1 GM VIAL 1 GM in NS(*) 0.9% 100 ML ADDVANT BAG 100 ML IVPB SCH (21:41)
[2018-03-30] MEDS: INSULIN HUM LISPRO 100 UN/ML 3 ML VIAL SUBQ PRN (23:02)
[2018-03-31] MEDS: ceFAZolin(*) 1 GM VIAL 1 GM in NS(*) 0.9% 100 ML ADDVANT BAG 100 ML IV SCH ×4 (04:29→20:34)
[2018-03-31 04:32] VITALS: BP 155/87
[2018-03-31] MEDS: ACETAMINOPHEN 325 MG TAB PO PRN ×3 (06:11→20:40)
[2018-03-31] MEDS: oxyCODONE HCL 5 MG CAP PO PRN ×3 (06:12→20:34)
[2018-03-31 06:36] LABS: INR 3.64
[2018-03-31 07:35] VITALS: BP 146/90
[2018-03-31 07:39] LABS: PLATELET COUNT, AUTOMATED 254 K/uL (150-450)
[2018-03-31] MEDS: ASPIRIN 81 MG CHEW PO SCH (08:59)
[2018-03-31] MEDS: MAGNESIUM OXIDE 400 MG TAB PO SCH (08:59)
[2018-03-31] MEDS: METOPROLOL SUCC XL 25 MG TABCR PO SCH (08:59)
[2018-03-31] MEDS: GABAPENTIN 300 MG CAP PO SCH ×3 (08:59→20:35)
[2018-03-31] MEDS: DULoxetine HCL 30 MG CAPCR PO SCH (08:59)
[2018-03-31] MEDS: INSULIN GLARGINE 100 U/ML 3 ML PEN SUBQ SCH (09:00)
[2018-03-31 10:19] VITALS: BP 113/77
[2018-03-31] MEDS: INSULIN HUM LISPRO 100 UN/ML 3 ML VIAL SUBQ PRN ×2 (12:18→17:20)
[2018-03-31] MEDS ORDERED: FLUCONAZOLE 200 MG/100ML PRMIX 50 ML IVPB SCH (12:30)
--- NOTE | 2018-03-31 13:54 | Hospitalist Progress Note ---
Subjective Progress Notes Subjective Mr. Phillips is a 57yo male with extensive PMHx of recurrent UTIs due to indwelling Muñoz cath because of his underlying condition Spina Bifida, Recurrent bacteremia felt to be secondary to failed CSF/MANAGER MONITORING shunt, DM-II, CAD, HTN, Obesity/THOMAS, Previous Walter's gangrene, Recurrent decubitus ulcers. He has been on chronic antibiotic suppressive oral Duricef therapy. He was evaluated in the ER and found to have fever, elevated WBC count, and evidence of possible UTI. He was admiited for further evaluation and management. He is allergic to Vancomycin and he received Ertepanem and Tigecycline. 03/27; He spiked 104F fever last night with episode of hypotension. He received IVF and this am his BP is 110/60 and he is afebrile. His Blood Cx grew GPC inn anaerobic bottle. He received sleeping pill last night and he feels drowsy this am. He denies any other complaint. 03/28: He developed low grade fever last night 100.7F. He c/o cough and chest consuelo due to his cough. His WBC are improving to 9K. His Blood and Urine Cx are pending for ID/S. His INR is still low 1.12 and he is on Coumadin and Lovenox 120mg bid. His Mag level is 1.6. 03/30: He developed shaking chills and diaphoresis today. His WBC are normal, he is afebrile and hemodynamically stable. He is on Ertapenem and Ancef. His UCX are still pending. His U/A has some yeast. 03/31: He is not feeling good today. He c/o generalized fatigue and bodyach. He also gained fluids. His INR is 3.6 and WBC 4.5. His UCX is positive for Citrobacter Fruindii and BCX positive for Staph. aureus. His urine also shows fungus. Patient Complains of: Neurological: Weakness, No: Confusion, Dizziness Cardiovascular: No: Chest Pain, Palpitations Respiratory: No: Cough, Congestion, Shortness of Breath Gastrointestinal: Nausea, No Vomiting Genitourinary: No Dysuria, No Hematuria Musculoskeletal: No: Pain, Sprain, Strain, Impaired Mobility Physical Exam Vital Signs Date Time Temp Pulse Resp B/P (MAP) Pulse Ox O2 Delivery O2 Flow Rate FiO2 03/31/18 10:19 88 20 113/77 (89) 96 Nasal Cannula 2.0 03/31/18 07:35 98.0 Intake and Output 04/01/18 07:00 Intake Total 800 ml Balance 800 ml Intake Oral 800 ml General Appearance: Alert, Awake, No Acute Distress, Afebrile Neuro: No Gross deficits Eyes: PERRLA ENT: Normal Neck: Other (large circumfrence) Cardiovascular: Normal Rhythm & Peripheral Pulses Respiratory: No Respiratory Distress GI: Soft and Non-Tender (mild generalized tenderness but no R/G/D) Extremities: Soft and Non Tender, Warm, Edema Psych: Alert & Oriented X3, Appropriate Mood & Affect Result Diagram: 03/31/1872003/31/18720 Monitor Interpretation: Sinus Tachycardia Assessment and Plan Problems: (1) Fever Status: Acute Assessment & Plan: It appears he could have a recurrent UTI vs. possible recurrent bacteremia related to his non-functional CSF shunt. He has been told he is not a candidate to have the shunt removed due to very high risk. He has been managed with long course IV antibiotics followed by life-long suppressive therapy. He has had cultures of blood and urine done in the ER. Based on his previous cultures, will start ertapenem and tigecycline until we get results. 03/27: His Blood CX came back positive for GPC in aerobic and anaerobic. He is fully covered with broad spectrum antibiotics and I will continue his present management and follow his culture ID/S. I will get CBC, BMP in am 03/28: I will continue his antibiotics for now. His WBC are improving. I will get CXR and start Robitussin for his cough. 03/29: Afebrile for 24 hours. Continue current treatment and awaiting final culture results. Will reculture blood to look for clearance of infection. 03/30: DX: Staph Aureus Bacteremia and Citrobacter Freundi and Yeast UTI I will get Blood CX today and stain for yeast and if patient spike I will get fungal cultures also I will continue the same antibiotics I will give one dose of Fluconazole 200mg IV I will get UCX result and direct his antibiotics in am I will get CBC, BMP, PT/INR 03/31: I will follow the new blood CX and for fungus I will stop his IVF I will try dose of Lasix 40mg IV I will get Echo in am to r/o Endocarditis I will get CBC and BMP (2) Type 2 diabetes mellitus Status: Chronic Assessment & Plan: He has been on Lantus 75units AM and 65units PM, but also does not follow diet at home and previously has had problems with hypoglycemia when on ADA diet in hospital. He was reduced to 55units AM and 25units PM and use SSI as needed, but had a low glucose this morning and is overall trending lower with glucose. Will stop his PM dose of Lantus. (3) Hx of deep venous thrombosis Status: Chronic Assessment & Plan: He has been managed with oral warfarin, but currently has sub-therapeutic INR. Will place on full dose Lovenox. Will continue on warfarin , but increase from his current 5mg daily to 5mg daily except 7.5mg on MON and MON. Watch lab. 03/27: I will increase his Coumadin dose to 7.5 and recheck his PT/INR in am. I will stop his Lovenox 30mg and continue 120mg bid 03/28: I will increase his Coumadin to 10mg today and repeat his PT/INR in am. I will continue Lovenox 03/29: Still subtherapeutic. Continue Lovenox and daily INR. 03/30: I will cut his dose to 5mg po qd I will repeat his INR in am 03/31: I will hold his Coumadin today I will repeat his INR in am (4) Candidal intertrigo Status: Chronic Assessment & Plan: Nystatin powder. Try to keep dry. (5) Decubitus ulcer Status: Chronic Assessment & Plan: PT wound care following. Try to keep his weight off the area. (6) Chronic pain Status: Chronic Assessment & Plan: Will continue his oxycodone. Apparently, he is no longer taking the oral morphine. (7) Hypomagnesemia Status: Resolved Assessment & Plan: I will start Mag. Sulphate 2gm IVPB today and check his Mag level in am. He is also on Mag. Oxide orally 03/28: I will use another dose of Mag. Sulphate 2gm IVPB today and repeat his Mag level in am 03/29: Mg wnl this morning. Central Venous Access Medical Necessity for Access: IV Access, Medication Administration Time Spent on Plan of Care: > 30 min Copies to: LENIN ANTONIO APRN RETAIL BUSINESS ANALYST-C; RODRIGO MANNING MD Exam Sepsis Risk: No Definite Risk NARINDER RUFFIN MD Mar 31, 2018 13:54
[2018-03-31] MEDS: NYSTATIN 100,000 U/GM PWD 15GM TP SCH ×2 (13:58→20:35)
[2018-03-31] MEDS: NS(*) 0.9% 1000 ML BAG 1,000 ML IV PRN (16:12)
[2018-03-31] MEDS: ATORVASTATIN 40 MG TAB PO SCH (20:34)
[2018-03-31] MEDS: PANTOPRAZOLE SOD 40 MG TABEC PO SCH (20:34)
[2018-03-31] MEDS: ERTAPENEM(*) 1 GM VIAL 1 GM in NS(*) 0.9% 100 ML ADDVANT BAG 100 ML IVPB SCH (21:15)
[2018-03-31 22:39] VITALS: BP 120/71
[2018-04-01 03:41] VITALS: BP 139/86
[2018-04-01] MEDS: ceFAZolin(*) 1 GM VIAL 1 GM in NS(*) 0.9% 100 ML ADDVANT BAG 100 ML IV SCH ×3 (05:23→20:15)
[2018-04-01 06:58] LABS: PLATELET COUNT, AUTOMATED 256 K/uL (150-450)
[2018-04-01 07:06] LABS: INR 3.94
[2018-04-01 07:26] VITALS: BP 134/84
[2018-04-01] MEDS: oxyCODONE HCL 5 MG CAP PO PRN ×3 (07:33→20:09)
[2018-04-01] MEDS: ACETAMINOPHEN 325 MG TAB PO PRN ×3 (07:33→20:09)
[2018-04-01] MEDS: NS(*) 0.9% 1000 ML BAG 1,000 ML IV PRN (08:30)
[2018-04-01] MEDS: MAGNESIUM OXIDE 400 MG TAB PO SCH (08:30)
[2018-04-01] MEDS: METOPROLOL SUCC XL 25 MG TABCR PO SCH (08:31)
[2018-04-01] MEDS: GABAPENTIN 300 MG CAP PO SCH ×3 (08:31→20:15)
[2018-04-01] MEDS: ASPIRIN 81 MG CHEW PO SCH (08:31)
[2018-04-01] MEDS: DULoxetine HCL 30 MG CAPCR PO SCH (08:31)
[2018-04-01] MEDS: INSULIN GLARGINE 100 U/ML 3 ML PEN SUBQ SCH (08:31)
[2018-04-01 11:02] VITALS: BP 127/75
[2018-04-01] MEDS: INSULIN HUM LISPRO 100 UN/ML 3 ML VIAL SUBQ PRN ×3 (11:58→20:09)
[2018-04-01] MEDS: NYSTATIN 100,000 U/GM PWD 15GM TP SCH (12:00)
--- NOTE | 2018-04-01 12:23 | Hospitalist Progress Note ---
Subjective Progress Notes Subjective This patient was admitted for bacteremia. He had no acute changes overnight. Patient Complains of: Cardiovascular: No: Chest Pain Respiratory: No: Shortness of Breath Physical Exam Vital Signs Date Time Temp Pulse Resp B/P (MAP) Pulse Ox O2 Delivery O2 Flow Rate FiO2 04/01/18 11:02 98.3 107 20 127/75 (92) 88 Nasal Cannula 2.0 Intake and Output 04/02/18 07:00 Intake Total 1800 ml Output Total 1000 ml Balance 800 ml Intake Oral 800 ml IV Total 1000 ml Output Urine Total 1000 ml Cardiovascular: Regular Rate and Rhythm Respiratory: Clear to Auscultation Result Diagram: 04/01/18 0650 04/01/18 0650 Item Value Date Time Urine Culture - Preliminary Resulted 03/31/18 1200 Cath Urine Blood Culture - Preliminary Resulted 03/30/18 1152 Blood NO GROWTH AFTER 2 DAYS, REINCUBATED Blood Culture - Preliminary Resulted 03/30/18 1140 Blood NO GROWTH AFTER 2 DAYS, REINCUBATED Blood Culture - Preliminary Resulted 03/29/18 0817 Blood NO GROWTH AFTER 3 DAYS, REINCUBATED Blood Culture - Preliminary Resulted 03/29/18 0811 Blood NO GROWTH AFTER 3 DAYS, REINCUBATED Urine Culture - Final Complete 03/26/18 1849 Cath Urine Yeast Species Blood Culture - Final Complete 03/26/18 1832 Blood Blood Culture - Final Complete 03/26/18 1555 Blood Monitor Interpretation: Sinus Tachycardia Assessment and Plan Problems: (1) Sepsis due to Staphylococcus aureus Assessment & Plan: He did present with fever. 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 He was started on empiric treatment with Ertapenem and tigecycline. His cultures have grown the same strain of methicillin sensitive Staphylococcus that he has had in the past. He is now on treatment with Ancef. He is on chronic suppressive therapy with cefuroxime. (2) UTI (urinary tract infection) Assessment & Plan: He was started on empiric treatment with ertapenem. His urine culture grew Citrobacter and yeast. He was treated with several doses of fluconazole. The ertapenem and fluconazole have now been stopped. (3) Type 2 diabetes mellitus Status: Chronic Assessment & Plan: He has been on Lantus 75units AM and 65units PM, but also does not follow diet at home and previously has had problems with hypoglycemia when on ADA diet in hospital. His Lantus doses have been reduced and the evening dose has been discontinued. (4) Hx of deep venous thrombosis Status: Chronic Assessment & Plan: He is on chronic treatment with warfarin, but was subtherapeutic at admission. He was placed on Lovenox and his warfarin dose was increased. His INR is now over therapeutic range and the warfarin is on hold. (5) Candidal intertrigo Status: Chronic Assessment & Plan: He has been treated with Nystatin powder. (6) Decubitus ulcer Status: Chronic Assessment & Plan: A wound care consult is ongoing. (7) Chronic pain Status: Chronic Assessment & Plan: He is on chronic treatment with oxycodone. (8) Hypomagnesemia Status: Resolved Assessment & Plan: He has received several doses of supplemental magnesium. Central Venous Access Medical Necessity for Access: IV Access, Medication Administration Exam Sepsis Risk: No Definite Risk RODRIGO BARRIGA DO Apr 01, 2018 12:23
[2018-04-01] MEDS: WARFARIN SOD 5 MG TAB PO SCH (13:00)
[2018-04-01 16:45] VITALS: BP 138/95
[2018-04-01 19:45] VITALS: BP 120/72
[2018-04-01] MEDS: ATORVASTATIN 40 MG TAB PO SCH (20:15)
[2018-04-01] MEDS: PANTOPRAZOLE SOD 40 MG TABEC PO SCH (20:15)
[2018-04-01 23:06] VITALS: BP 116/56
[2018-04-02 03:21] VITALS: BP 167/76
[2018-04-02] MEDS: oxyCODONE HCL 5 MG CAP PO PRN ×3 (03:41→21:01)
[2018-04-02] MEDS: ACETAMINOPHEN 325 MG TAB PO PRN ×3 (03:42→20:59)
[2018-04-02 03:44] VITALS: BP 137/78
[2018-04-02] MEDS: ceFAZolin(*) 1 GM VIAL 1 GM in NS(*) 0.9% 100 ML ADDVANT BAG 100 ML IV SCH ×3 (05:37→20:57)
[2018-04-02 06:19] LABS: INR 3.39
[2018-04-02 07:29] VITALS: BP 134/66
[2018-04-02] MEDS: NYSTATIN 100,000 U/GM PWD 15GM TP SCH ×2 (09:00→20:58)
[2018-04-02] MEDS: METOPROLOL SUCC XL 25 MG TABCR PO SCH (09:16)
[2018-04-02] MEDS: FLUTICASONE PROP 0.05% 16 GM SCH (09:16)
[2018-04-02] MEDS: ASPIRIN 81 MG CHEW PO SCH (09:17)
[2018-04-02] MEDS: DULoxetine HCL 30 MG CAPCR PO SCH (09:17)
[2018-04-02] MEDS: MAGNESIUM OXIDE 400 MG TAB PO SCH (09:17)
[2018-04-02] MEDS: GABAPENTIN 300 MG CAP PO SCH ×3 (09:17→20:58)
[2018-04-02] MEDS: INSULIN GLARGINE 100 U/ML 3 ML PEN SUBQ SCH (09:17)
--- NOTE | 2018-04-02 10:56 | Hospitalist Progress Note ---
Subjective Progress Notes Subjective He reports a continued dry cough. No fevers or chills. Physical Exam Vital Signs Date Time Temp Pulse Resp B/P (MAP) Pulse Ox O2 Delivery O2 Flow Rate FiO2 04/02/18 07:35 93 Nasal Cannula 2.0 04/02/18 07:29 97.8 91 18 134/66 (88) Intake and Output 04/03/18 06:59 Intake Total 340 ml Output Total 1400 ml Balance -1060 ml Intake Oral 340 ml Output Urine Total 1400 ml # Bowel Movements 1 General Appearance: Alert, Awake, No Acute Distress Cardiovascular: Regular Rate and Rhythm Result Diagram: 04/01/18 0650 04/01/18 0650 Monitor Interpretation: Sinus Tachycardia Assessment and Plan Problems: (1) Sepsis due to Staphylococcus aureus Assessment & Plan: He did present with fever. He is known to have a nonfunctioning [facility] shunt that is potentially chronically infected with MSSA. He has been told he is not a candidate to have the shunt removed due to very high surgical risk. He was started on empiric treatment with Ertapenem and tigecycline, this admission. His cultures have grown the same strain of methicillin sensitive Staphylococcus that he has had in the past. He is now on treatment with Ancef. Repeat blood cultures are negative, he is afebrile and his WBC is wnl. I am awaiting a call back from the patient's ID physician about duration of IV abx. (2) UTI (urinary tract infection) Assessment & Plan: He was started on empiric treatment with ertapenem. His urine culture grew Citrobacter and yeast. He was treated with several doses of fluconazole. The ertapenem and fluconazole have now been stopped. (3) Type 2 diabetes mellitus Status: Chronic Assessment & Plan: He has been on Lantus 75units AM and 65units PM, but also does not follow diet at home and previously has had problems with hypoglycemia when on ADA diet in hospital. His Lantus doses have been reduced and the evening dose has been discontinued. (4) Hx of deep venous thrombosis Status: Chronic Assessment & Plan: He is on chronic treatment with warfarin, but was subtherapeutic at admission. He was placed on Lovenox and his warfarin dose was increased. His INR is now over therapeutic range and the warfarin is on hold. (5) Candidal intertrigo Status: Chronic Assessment & Plan: He has been treated with Nystatin powder. (6) Decubitus ulcer Status: Chronic Assessment & Plan: A wound care consult is ongoing. (7) Chronic pain Status: Chronic Assessment & Plan: He is on chronic treatment with oxycodone. (8) Hypomagnesemia Status: Resolved Assessment & Plan: He has received several doses of supplemental magnesium. (9) Cough Status: Chronic Assessment & Plan: Likely, allergic rhinitis related. Flonase to be tried. Central Venous Access Medical Necessity for Access: IV Access, Medication Administration Exam Sepsis Risk: No Definite Risk ARSH DACOSTA MD Apr 02, 2018 10:56
[2018-04-02 11:04] VITALS: BP 138/85
[2018-04-02] MEDS: INSULIN HUM LISPRO 100 UN/ML 3 ML VIAL SUBQ PRN ×3 (11:45→21:04)
--- NOTE | 2018-04-02 12:06 | Antimicrobial Stewardship Note ---
Antimicrobial Stewardship Note Note RB is a 57 yo M with multiple medical co-morbidities, who presented to the ED with dyspnea, cough, and not feeling well for the last 1-2 weeks. His history includes recurrent UTIs secondary to an indwelling jackson catheter, recurrent bacteremia secondary to malfunctioning NICKEL PLATER shunt. Of note, pt has been on Duricef for secondary bacteremia prophylaxis. At admission: WBC 14.1 with 91% neutrophils, Tmax 102.9F, chills and rigors Microbiology: 03/26/18: Urine Cx: (+) for yeast, 2 different morphologies of Citrobacter freundii 03/26/18: Blood Cx: MSSA in 3 of 4 bottles 03/29/18: Blood Cx: Blood Cx - NGTD* 03/30/18: Blood Cx: Blood Cx - NGTD* Of note, blood cultures will be reviewed for potential fungal infection (ximena ), at this time seems less likely, unable to draw fungal cultures. 1. UTI- recurrent infections, possible colonization with yeast, and c. freundii ---same as last time. - 03/26 -03/31: Ertapenem - now d/c'd -03/30 and 03/31: Fluconazole - now d/c'd 2. 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 Dr. Calvert will be consulted as patient is not a candidate for NICKEL PLATER shunt removal. Continue Ancef. Today is day 7 of therapy for MSSA bacteremia. Echo scheduled, historically difficult to do TTE due to body habitus. If endocarditis is a concern, ADRI may be required. Khushbu Giang, PharmD, BCOP KHUSHBU GIANG Apr 02, 2018 12:06
[2018-04-02] MEDS: WARFARIN SOD 5 MG TAB PO SCH (12:33)
[2018-04-02 15:15] VITALS: BP 147/80
--- NOTE | 2018-04-02 18:25 | RADIOLOGY IMAGING REPORT ---
[place] [facility] [place] NAME: Rodrigue Phillips : 1960 MR: [id number] V: [id number] EXAM DATE: ORDERING PHYSICIAN: ARSH DACOSTA TECHNOLOGIST: Location: [facility] [place] Patient: Rodrigue Phillips : 1960 Visit/Account:[id number] Date of Sevice: 04/02/2018 Exam type: PICC LINE INSERTION History: [facility]ci antibiotic tx Comparison: None. Findings: Informed consent was obtained. The patient's left arm was prepped and draped usual sterile fashion. Local anesthesia was accomplished with 1% lidocaine. Utilizing sonographic guidance the left basili c vein was punctured with the 18-gauge needle. Guidewire was advanced into the lumen however an obst ruction was met in the mid upper left arm. Attention was then directed towards the left brachial vei n. Local anesthesia was accomplished with 1% lidocaine. The left brachial vein was punctured with a n 18-gauge needle. The guidewire was advanced within the lumen of the left brachial vein however an obstruction was also met in the mid upper arm. The patient was then repositioned in the right arm was prepped and draped in usual sterile fashion. Utilizing both sonographic and fluoroscopic guidance a 30 cm long trimmed 5 Estonian double lumen power PICC was inserted via the patent right brachial vein however an obstruction was met in the right axi lla. The proximal portion of the PICC line was carefully adhered to the patient's right arm with a s terile dressing. Both lumens of the power PICC were flushed with 5 mL of saline flush. The sonograp hic images were saved to PACS. The procedure was accomplished without apparent complication. The fl uoroscopy dose area product was 353.19 micro-Prater per meter squared IMPRESSION: 1. Successful placement of a 5 Estonian double lumen power PICC inserted via the patent right brachial vein with the distal tip resting in the right axillary vein. The PICC line could not be advanced beyond this point. Report Dictated By: Milena Olea MD at 04/02/2018 6:16 PM Report E-Signed By: Milena Olea MD at 04/02/2018 6:21 PM WSN:[email or web address]
[2018-04-02] MEDS: ATORVASTATIN 40 MG TAB PO SCH (20:58)
[2018-04-02] MEDS: PANTOPRAZOLE SOD 40 MG TABEC PO SCH (20:58)
[2018-04-02 23:05] VITALS: BP 145/81
[2018-04-03 03:18] VITALS: BP 123/59
[2018-04-03] MEDS: ceFAZolin(*) 1 GM VIAL 1 GM in NS(*) 0.9% 100 ML ADDVANT BAG 100 ML IV SCH ×3 (05:17→21:46)
[2018-04-03] MEDS: oxyCODONE HCL 5 MG CAP PO PRN ×3 (06:09→18:34)
[2018-04-03] MEDS: ACETAMINOPHEN 325 MG TAB PO PRN ×3 (06:10→18:35)
[2018-04-03 06:26] LABS: PLATELET COUNT, AUTOMATED 289 K/uL (150-450)
[2018-04-03 06:35] LABS: INR 3.11
[2018-04-03 07:32] VITALS: BP 127/74
[2018-04-03] MEDS: INSULIN HUM LISPRO 100 UN/ML 3 ML VIAL SUBQ PRN ×3 (07:44→16:37)
[2018-04-03] MEDS: DULoxetine HCL 30 MG CAPCR PO SCH (08:15)
[2018-04-03] MEDS: MAGNESIUM OXIDE 400 MG TAB PO SCH (08:15)
[2018-04-03] MEDS: METOPROLOL SUCC XL 25 MG TABCR PO SCH (08:15)
[2018-04-03] MEDS: GABAPENTIN 300 MG CAP PO SCH ×3 (08:15→21:43)
[2018-04-03] MEDS: NYSTATIN 100,000 U/GM PWD 15GM TP SCH ×2 (08:16→21:46)
[2018-04-03] MEDS: INSULIN GLARGINE 100 U/ML 3 ML PEN SUBQ SCH (08:16)
[2018-04-03] MEDS: FLUTICASONE PROP 0.05% 16 GM SCH (08:39)
[2018-04-03] MEDS: ASPIRIN 81 MG CHEW PO SCH (09:19)
--- NOTE | 2018-04-03 11:26 | RADIOLOGY IMAGING REPORT ---
FACILITY: [facility] PATIENT NAME: Rodrigue Phillips : 1960 MR: [id number] V: [id number] EXAM DATE: ORDERING PHYSICIAN: NATHONY DUQUE TECHNOLOGIST: Location: [facility] Patient: Rodrigue Phillips : 1960 Visit/Account:[id number] Date of Sevice: 04/03/2018 Exam type: VENOUS DOPP LOW LEFT EXTREMITY History: Pain and swelling left lower extremity Comparison: October 20, 2017. Findings: Left lower extremities veins were imaged including the left common femoral vein, greater saphenous ve in, superficial femoral vein popliteal vein posterior tibial vein peroneal vein and anterior tibial v eins. Flow and augmentation was demonstrated in the veins. Some of the veins appear compressible ho wever due to patient's large body habitus the examination was somewhat limited. IMPRESSION: 1. No gross evidence of DVT involving the left lower extremity veins although the examination was so mewhat difficult due to patient's body habitus Report Dictated By: Milena Olea MD at 04/03/2018 11:09 AM Report E-Signed By: Milena Olea MD at 04/03/2018 11:21 AM WSN:[email or web address]
--- NOTE | 2018-04-03 13:05 | Hospitalist Progress Note ---
Subjective Progress Notes Subjective No new problems. He does not feel he would be able to do his own home IV antibiotics. Physical Exam Vital Signs Date Time Temp Pulse Resp B/P (MAP) Pulse Ox O2 Delivery O2 Flow Rate FiO2 04/03/18 07:32 99.0 94 16 127/74 (91) 94 Nasal Cannula 4.0 Intake and Output 04/04/18 06:59 Intake Total 1100 ml Output Total 1100 ml Balance 0 ml Intake Oral 1100 ml Output Urine Total 1100 ml General Appearance: Alert, Awake Cardiovascular: Regular Rate and Rhythm Respiratory: Clear to Auscultation GI: Soft and Non-Tender (obese/ostomy functioning) Extremities: Warm, Perfused, Edema (Both LE L>R. Left is tender to palpation.) Result Diagram: 04/03/1860604/03/18606 Monitor Interpretation: Sinus Tachycardia Assessment and Plan Problems: (1) Sepsis due to Staphylococcus aureus Assessment & Plan: He did present with fever. He is known to have a nonfunctioning [facility] CSF shunt that is potentially chronically infected with MSSA. He has been told he is not a candidate to have the shunt removed due to very high surgical risk. He was started on empiric treatment with Ertapenem and tigecycline, this admission. His cultures have grown the same strain of methicillin sensitive Staphylococcus that he has had in the past. He is now on treatment with Ancef. Repeat blood cultures are negative, he is afebrile and his WBC is in normal range. Dr. Calvert (the patient's ID physician) recommends 6 weeks of IV antibiotics. (2) UTI (urinary tract infection) Assessment & Plan: He was started on empiric treatment with ertapenem. His urine culture grew Citrobacter and yeast. He was treated with several doses of fluconazole. The ertapenem and fluconazole have now been stopped. (3) Type 2 diabetes mellitus Status: Chronic Assessment & Plan: He has been on Lantus 75units AM and 65units PM, but also does not follow diet at home and previously has had problems with hypoglycemia when on ADA diet in hospital. His Lantus doses have been reduced and the evening dose has been discontinued. (4) Hx of deep venous thrombosis Status: Chronic Assessment & Plan: He is on chronic treatment with warfarin, but was subtherapeutic at admission. He was placed on Lovenox and his warfarin dose was increased. His INR was over therapeutic range and the warfarin was on hold. We will now resume his warfarin at 5mg daily. (5) Candidal intertrigo Status: Chronic Assessment & Plan: He has been treated with Nystatin powder. (6) Decubitus ulcer Status: Chronic Assessment & Plan: A wound care consult is ongoing. (7) Chronic pain Status: Chronic Assessment & Plan: He is on chronic treatment with oxycodone. (8) Hypomagnesemia Status: Resolved Assessment & Plan: He has received several doses of supplemental magnesium. (9) Cough Status: Chronic Assessment & Plan: Likely, allergic rhinitis related. Flonase to be tried. Central Venous Access Medical Necessity for Access: IV Access, Medication Administration Exam Sepsis Risk: No Definite Risk ANTHONY DUQUE MD Apr 03, 2018 13:05
[2018-04-03] MEDS: WARFARIN SOD 5 MG TAB PO SCH (13:43)
[2018-04-03] MEDS ORDERED: SIMETHICONE 80 MG CHEW CHEW PRN (14:55)
[2018-04-03 16:11] VITALS: BP 142/75
[2018-04-03 20:03] VITALS: BP 146/70
[2018-04-03] MEDS: PANTOPRAZOLE SOD 40 MG TABEC PO SCH (21:43)
[2018-04-03] MEDS: ATORVASTATIN 40 MG TAB PO SCH (21:43)
[2018-04-03 23:55] VITALS: BP 119/65
[2018-04-04 03:37] VITALS: BP 147/78
[2018-04-04] MEDS: oxyCODONE HCL 5 MG CAP PO PRN ×2 (03:45→10:30)
[2018-04-04] MEDS: ACETAMINOPHEN 325 MG TAB PO PRN ×2 (03:47→10:30)
[2018-04-04] MEDS: ceFAZolin(*) 1 GM VIAL 1 GM in NS(*) 0.9% 100 ML ADDVANT BAG 100 ML IV SCH ×2 (04:35→12:15)
[2018-04-04 07:02] LABS: PLATELET COUNT, AUTOMATED 317 K/uL (150-450)
[2018-04-04 08:07] VITALS: BP 122/65
[2018-04-04] MEDS: INSULIN HUM LISPRO 100 UN/ML 3 ML VIAL SUBQ PRN ×2 (08:13→12:02)
[2018-04-04] MEDS: FLUTICASONE PROP 0.05% 16 GM SCH ×2 (09:00→09:09)
[2018-04-04] MEDS: GABAPENTIN 300 MG CAP PO SCH (09:08)
[2018-04-04] MEDS: MAGNESIUM OXIDE 400 MG TAB PO SCH (09:08)
[2018-04-04] MEDS: DULoxetine HCL 30 MG CAPCR PO SCH (09:08)
[2018-04-04] MEDS: METOPROLOL SUCC XL 25 MG TABCR PO SCH (09:08)
[2018-04-04] MEDS: INSULIN GLARGINE 100 U/ML 3 ML PEN SUBQ SCH (09:09)
[2018-04-04] MEDS: ASPIRIN 81 MG CHEW PO SCH (09:09)
[2018-04-04] MEDS: NYSTATIN 100,000 U/GM PWD 15GM TP SCH (09:09)
--- NOTE | 2018-04-04 10:27 | Medical Nutrition Therapy ---
Nutrition Anthropometrics Height (Inches): 67.00 Height (Calculated Centimeters: 170.735999 Weight (Pounds): 306 Weight (Calculated Kilograms): 139.026 Delfino Nutrition Score: Adequate Delfino Nutrition Risk Score: 14 Dietary Referral Nutrition Risk Factors: Special Diet Nutrition Risk Comment: Diabetic Physical Findings Physical Appearance: Morbidly Obese 40+ Skin Appearance Skin Appearance: Edema Edema Location Modifier: Right Edema Location: Lower Extremity Type of Edema: Degree of Edema: 1+ Gastrointestinal Symptoms GI Symtoms: Change in Bowel Pattern Tube Present: Bowel Sounds: Recent Bowel Pattern: Diarrhea Stool Characteristics: Loose Nutritional Diagnosis Nutritional Risk Acuity 2: Abcess/Non-Healing Wound Nutritional Risk Acuity 3: Fair Appetite, ST I/II Pressure Ulcer Past Medical History: hx abdominal surgery, colostomy, Type IIDM, Indwelling catheter, Frequent UTI, Spina Bifida, GERD, THOMAS, Neurogenic bladder, Syncope, Dizziness, pulmonary embolus, deep venous thrombosis, small bowel obstruction, Decubitus ulcer, CAD, hypomagnesemia, Candidal intertrigo Nutritional Acuity: 2-Moderate Nutrition Diagnosis: Increased Nutrient Needs, Over-weight/Obesity Nutrition Etiology: Excesssive Nutr. Intake, Physiological Causes Nutrition Problem/Etiology/Sym: Increase nutrient and fluid needs related to physiological causes as evidence by sepsis UTI. Over-weight/obesity related to excessiive food intake as evidence by BMI 48. Energy Requirement: 2214 (Peace benedict adj REE BMI>27.5) Protein Requirement: 139 (1g/kg) Fluid Requirement: 4170 (30ml/kg) Diet Type: Diabetic ([address] order) Drug: Warfarin Do Not Serve Any of the Follow: Broccoli, Brussel Sprouts, Spinach, [place] Lettuce, Cranberry Juice Nutrition Monitoring & Eval Nutrition Goals: Eat 75-100% Meal RD Patient Assessment Time: [address] Assessment Type: RD Re-Assessment Patient Nutrition Acuity: 2-Moderate Follow Up Date: Apr 08, 2018 Nutritional Comment: 03/27 Pt admitted for sepsis UTI. Pt is on 2200 calorie ADA diet allowing the pt to consume 75g CHO per meal with no intake recorded at this time. Pt is experiencing cough, pain, chills, aches and fever (104 F degrees). Pt states that he has poor appetite the past few days. Pt is T2DM and does not follow an ADA diet at home. Pt has hx of recurrent septic UTIs. Pt has low Mg (1.3) and has begun Mg supplement. Pt has low creatinine (.6) and alb (2.5). Will continue to monitor pt progress, labs and encourage intake. MT 03/29 Pt continues on 2200 calorie ADA diet with 75% oral intake. Pt still feels tenderness and has cough. No fever at this time. Pt had low random blood glucose this morning (49),but was asymptomatic. Pt has elevated whole blood glucose (141). No other lab concerns. Doctor note states that they will reculture blood to look for clearance of infection. Will continue to monitor pt progress, labs and encourage intake. -MT 04/03 Pt continues on ADA diet with 100% oral intake. Labs and evaluation indicate that sepsis is due to Staphylococcus aureus. He is now on treatment with Ancef. He is on chronic suppressive therapy with cefuroxime. Pt has low hgb (8.7), Na (133), creatinine (.5) and alb (2.2). Pt has elevated random blood glucose taken at 6AM (157). Pt fever has been resolved. Will continue to monitor pt progress, labs and encourage intake. -DC MARTINSSHANDA Apr 03, 2018 11:17
[2018-04-04 10:38] LABS: INR 3.06
[2018-04-04 11:10] VITALS: BP 143/86
[2018-04-04] MEDS: WARFARIN SOD 5 MG TAB PO SCH (11:44)
--- NOTE | 2018-04-04 11:57 | Hospitalist Depart ---
Discharge Summary Reason for Hosp/Final Diag: (1) Sepsis due to Staphylococcus aureus Hospital Course & Plan: He did present with fever. 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 He has been told he is not a candidate to have the shunt removed due to very high surgical risk. He was started on empiric treatment with Ertapenem and tigecycline, this admission. His cultures have grown the same strain of methicillin sensitive Staphylococcus that he has had in the past. He is now on treatment with Ancef. Repeat blood cultures are negative, he is afebrile and his WBC is in normal range. Dr. Calvert (the patient's ID physician) recommends 6 weeks of IV antibiotics, then chronic oral antibiotics. Echo results are still pending. He had a PICC line placed on 04/02. He is going to [facility] for IV antibiotics. (2) UTI (urinary tract infection) Hospital Course & Plan: He was started on empiric treatment with ertapenem. 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 He was treated with several doses of fluconazole. The ertapenem and fluconazole have now been stopped. No further treatment unless he becomes symptomatic. (3) Type 2 diabetes mellitus Status: Chronic Hospital Course & Plan: He has been on Lantus 75units AM and 65units PM, but also does not follow diet at home and previously has had problems with hypoglycemia when on ADA diet in hospital. His Lantus doses have been reduced and the evening dose has been discontinued. (4) Hx of deep venous thrombosis Status: Chronic Hospital Course & Plan: He is on chronic treatment with warfarin, but was subtherapeutic at admission. He was placed on Lovenox and his warfarin dose was increased. His INR was over therapeutic range and the warfarin was on hold. Daily INR (5) Candidal intertrigo Status: Chronic Hospital Course & Plan: He has been treated with Nystatin powder. (6) Decubitus ulcer Status: Chronic Hospital Course & Plan: A wound care consult is ongoing. (7) Chronic pain Status: Chronic Hospital Course & Plan: He is on chronic treatment with oxycodone. (8) Hypomagnesemia Status: Resolved Hospital Course & Plan: He has received several doses of supplemental magnesium. (9) Cough Status: Chronic Hospital Course & Plan: Likely, allergic rhinitis related. Flonase tried but he refused, so will stop. Departure Weight (Pounds): 306 Weight (Ounces): 8.0 Result Diagram: 04/04/18 0650 04/04/18 0650 Item Value Date Time White Blood Count 14.1 k/uL H 03/26/18 1555 White Blood Count 14.1 k/uL H 03/27/18 0527 White Blood Count 9.0 k/uL 03/28/18 0522 White Blood Count 7.1 k/uL 03/29/18 0540 Hemoglobin 11.3 g/dL L 03/26/18 1555 Hemoglobin 10.3 g/dL L 03/27/18 0527 Hemoglobin 10.1 g/dL L 03/28/18 0522 Hemoglobin 10.3 g/dL L 03/29/18 0540 Platelet Count 227 K/uL 03/26/18 1555 Platelet Count 169 K/uL 03/27/18 0527 Platelet Count 170 K/uL 03/28/18 0522 Platelet Count 220 K/uL 03/29/18 0540 Neutrophils (%) (Auto) 91.2 % H 03/26/18 1555 Neutrophils (%) (Auto) 88.6 % H 03/27/18 0527 Neutrophils (%) (Auto) 84.0 % H 03/28/18 0522 Neutrophils (%) (Auto) 72.5 % 03/29/18 0540 White Blood Count 5.4 k/uL 03/30/18 0545 White Blood Count 6.6 k/uL 04/01/18 0650 White Blood Count 7.0 k/uL 04/04/18 0650 Hemoglobin 8.8 g/dL *L 04/04/18 0650 Hemoglobin 8.7 g/dL *L 04/03/18 0607 Hemoglobin 9.6 g/dL L 04/01/18 0650 Hemoglobin 9.3 g/dL L 03/31/18 0721 Hemoglobin 10.0 g/dL L 03/30/18 0545 Platelet Count 227 K/uL 03/30/18 0545 Platelet Count 256 K/uL 04/01/18 0650 Platelet Count 317 K/uL 04/04/18 0650 Neutrophils (%) (Auto) 76.6 % H 04/04/18 0650 Neutrophils (%) (Auto) 83.3 % H 04/01/18 0650 Neutrophils (%) (Auto) 63.9 % 03/30/18 0545 Prothromb Time International Ratio 3.06 04/04/18 0650 Prothromb Time International Ratio 3.11 04/03/18 0607 Prothromb Time International Ratio 3.39 04/02/18 0539 Prothromb Time International Ratio 3.94 04/01/18 0650 Prothromb Time International Ratio 3.64 03/31/18 0610 Troponin I < 0.012 ng/ml 03/26/18 1555 Total Bilirubin 0.3 mg/dl 03/26/18 1555 Aspartate Amino Transf (AST/SGOT) 27 U/L 03/26/18 1555 Alanine Aminotransferase (ALT/SGPT) 20 U/L 03/26/18 1555 Blood Urea Nitrogen 16 mg/dl 03/26/18 1555 Creatinine 0.60 mg/dl L 03/26/18 1555 Sodium Level 138 mmol/L 03/26/18 1555 Potassium Level 4.2 mmol/L 03/26/18 1555 Chloride Level 97 mmol/L L 03/26/18 1555 Carbon Dioxide Level 27 mmol/L 03/26/18 1555 Lactate 2.0 mmol/L 03/26/18 1748 Magnesium Level 1.6 mg/dl L 03/28/18 0522 Magnesium Level 1.9 mg/dl 03/29/18 0540 C-Reactive Protein 8.5 mg/dl H 03/30/18 0545 C-Reactive Protein 6.8 mg/dl H 04/03/18 0607 Total Bilirubin 0.3 mg/dl 04/04/18 0650 Aspartate Amino Transf (AST/SGOT) 15 U/L 04/04/18 0650 Alanine Aminotransferase (ALT/SGPT) 20 U/L 04/04/18 0650 Alkaline Phosphatase 149 U/L H 04/04/18 0650 Urine Leukocyte Esterase Large H 03/26/18 1849 Urine RBC 140 /HPF 03/26/18 1849 Urine WBC 297 /HPF 03/26/18 1849 Urine Leukocyte Esterase Large H 03/31/18 1200 Urine RBC 38 /HPF 03/31/18 1200 Urine WBC 33 /HPF 03/31/18 1200 Urine Nitrite Negative 03/31/18 1200 Urine Nitrite Positive H 03/26/18 1849 Urine Squamous Epithelial Cells Many /LPF H 03/26/18 1849 Urine Squamous Epithelial Cells Few /LPF 03/31/18 1200 Urine Transitional Epithelial Cells Few /LPF 03/31/18 1200 Urine Bacteria Few /HPF 03/31/18 1200 Urine Mucus Few /HPF 03/31/18 1200 Urine Yeast (Budding) Few /HPF H 03/31/18 1200 Urine Yeast (Budding) Few /HPF H 03/26/18 1849 Urine Yeast Few /HPF H 03/26/18 1849 Urine Mucus Few /HPF 03/26/18 1849 Urine Bacteria Few /HPF 03/26/18 184 Blood cultures from 03/30 and 03/29 are without growth. Blood cultures x2 from 03/26 have growth and sensitivities as below BLOOD CULTURE GRAM STAIN Final 03/27/18-0844 ANAEROBIC BOTTLE POSITIVE GRAM POSITIVE COCCI POSITIVE BLOOD CULTURE GRAM STAIN REPORT CALLED TO: BRITTNY SANTIAGO RN DATE/TIME REPORT CALLED: 03/27/18 0840 BY JIGNESH BLOOD CULTURE Final 04/02/18-1234 Organism 1 STAPHYLOCOCCUS AUREUS GROWTH PRESENT IN THE ANAEROBIC BOTTLE ID AND SENSITIVITY TO FOLLOW BETA LACTAMASE: POSITIVE NO GROWTH IN AEROBIC BOTTLE AT THIS TIME STA AUREUS M.I.C. RX --------- --- AMPICILLIN/SULBACTAM S CEFAZOLIN S CIPROFLOXACIN >=8 R CLINDAMYCIN >=8 R ERYTHROMYCIN >=8 R GENTAMICIN <=0.5 S LEVOFLOXACIN >=8 R LINEZOLID 2 S OXACILLIN 0.5 S BENZYLPENICILLIN >=0.5 R RIFAMPIN <=0.5 S TETRACYCLINE <=1 S TRIMETHOPRIM/SULFAMETHOXAZOLE <=10 S VANCOMYCIN 1 S Urine culture from 03/31 is growing yeast and GNR SPEC #: [id number] ЕЛЕНА: 03/26/18 STATUS: COMP REQ #: [id number] RECD: 03/26/[address] [facility] [address]: SOHA OTERO MD SOURCE: IDALIA ENTR: 03/26/[address] [facility] [address]: LENIN ANTONIO APRN [employer] SPDESC: ORDERED: CULT URINE Procedure Result Verified URINE CULTURE Final 03/30/18-1259 Organism 1 YEAST SPECIES >100,000 COL/ML Organism 2 CITROBACTER FREUNDII 75-100,000 COL/ML Organism 3 CITROBACTER FREUNDII#2 25-50,000 COL/ML TWO COLONY MORPHOLOGIES OF C. freundii. CIT BING CIT BING#2 M.I.C. RX M.I.C. RX --------- --- --------- --- CEFAZOLIN >=64 R >=64 R CEFTAZIDIME 2 S <=1 S CEFTRIAXONE 4 S 16 I CEFEPIME <=1 S <=1 S CEFOXITIN >=64 R >=64 R ERTAPENEM <=0.5 S <=0.5 S CIPROFLOXACIN <=0.25 S <=0.25 S GENTAMICIN <=1 S <=1 S IMIPENEM 0.5 S 0.5 S LEVOFLOXACIN <=0.12 S <=0.12 S NITROFURANTOIN 256 R 256 R PIPERACILLIN/TAZOBACTAM 8 S <=4 S TOBRAMYCIN <=1 S <=1 S TRIMETHOPRIM/SULFAMETHOXAZOLE <=20 S <=20 S Imaging 04/03/18 Venogram - 1. No gross evidence of DVT involving the left lower extremity veins although the examination was somewhat difficult due to patient' s body habitus 04/02/18 Echo - official report pending 03/26/18 Chest CTA - 1. There is no finding of a new filling defect to suggest pulmonary embolus. There is underfilling of a segmental and subsegmental branch vessels in the medial basal segment of the right lower lobe that represents a stable and chronic finding. 2. Right paratracheal lymph node measuring 1.0 x 1.5 cm in size unchanged when compared to the prior exam. Small lymph nodes noted elsewhere in the pretracheal region and benito. They appear probably stable. 03/26/18 CXR - 1. No acute cardiopulmonary process. EKG Vent. Rate : 146 BPM Atrial Rate : 146 BPM P-R Int : 116 ms QRS Dur : 074 ms QT Int : 284 ms P-R-T Axes : 057 090 060 degrees QTc Int : 442 ms Sinus tachycardia Possible left atrial enlargement Rightward axis Nonspecific ST findings Borderline ECG When compared with ECG of 05-MAR-2018 14:16, No significant change was found Confirmed by ANTHONY DUQUE ([id number]) on 03/27/2018 6:03:16 AM Condition: Improved Discharge: H ECF Discharge Instructions Home Meds Active Scripts Ondansetron (ONDANSETRON ODT) 4 Mg Tab.rapdis, 1 TAB PO Q12H, #30 TAB 1 Refill Prov:LENIN ANTONIO APRNP-C 03/15/18 Oxycodone Hcl 20 Mg Tab (OXYCODONE HCL 20 MG TAB) 20 Mg Tablet, 1 TAB PO Q6H Y for PAIN, #120 TAB 0 Refills Prov:LENIN ANTONIO APRNP-C 02/26/18 Atorvastatin Calcium (ATORVASTATIN CALCIUM) 40 Mg Tablet, 1 TAB PO QHS, #90 TAB 1 Refill Prov:LENIN ANTONIO APRNP-C 02/21/18 Cefuroxime Axetil (CEFUROXIME) 500 Mg Tablet, 500 MG PO BID for 5 Days, #10 TAB Prov:ANDER CAMPOS MD 02/19/18 Ferrous Sulfate (FERROUS SULFATE) 325 Mg Tablet, 1 TAB PO BID, #180 TAB 0 Refills Prov:LENIN ANTONIO APRNP-C 02/06/18 Gabapentin (GABAPENTIN) 600 Mg Tablet, 600 MG PO TID, #270 TAB 1 Refill Prov:LENIN ANTONIO APRN [employer]-C 02/05/18 Warfarin Sodium (COUMADIN) 5 Mg Tablet, 1-1.5 TAB PO QDAY@13, #45 TAB 5 Refills 1.5 tabs every monday and 1 tab all other days Prov:LENIN ANTONIO APRN-C 01/31/18 Lactobacillus Rhamnosus Gg (CULTURELLE) 1 Each Capsule, 1 EACH PO NOON, #30 CAPSULE 0 Refills Prov:LENIN ANTONIO APRNP-C 01/30/18 Amitriptyline Hcl (AMITRIPTYLINE HCL) 25 Mg Tablet, 25 MG PO QHS, #90 TAB 1 Refill Prov:LENIN ANTONIO APRNC 01/30/18 Insulin Glargine 100 Un/Ml Pen (LANTUS SOLOSTAR PEN) 100 Unit/1 Ml Insuln.pen, 55 UNIT SUBQ QAM, #3 ML Prov:RODRIGO BARRIGA DO 01/11/18 Insulin Glargine 100 Un/Ml Pen (LANTUS SOLOSTAR PEN) 100 Unit/1 Ml Insuln.pen, 25 UNIT SUBQ QHS, #3 ML Prov:RODRIGO BARRIGA DO 01/11/18 Insulin Aspart 100 Un/Ml Pen (NOVOLOG FLEXPEN) 100 Unit/1 Ml Insuln.pen, 20 UNIT SUBQ TIDAC, #3 ML Prov:RODRIGO BARRIGA DO 01/11/18 Furosemide (FUROSEMIDE) 40 Mg Tablet, 40 MG PO QDAY, #30 TAB Prov:RODRIGO BARRIGA DO 01/11/18 Magnesium Oxide (MAGNESIUM OXIDE) 400 Mg Tablet, 1 TAB PO DAILY, #180 TAB 2 Refills Prov:JOHN DUQUE MD 12/21/17 [Ostomy Supplies] No Conflict Check Prov:LENIN ANTONIO APRN-C 12/21/17 NYSTATIN 221741 UNT/ML Topical Cream (NYSTATIN 817935 UNT/ML Topical Cream) 15 Gm Cream..g., 1 JAEL TP BID, #120 GM 2 Refills Apply to yeast infection twice daily until resolved then treat the area once daily M, W, F Prov:LENIN ANTONIO APRN-C 12/19/17 Trazodone Hcl (TRAZODONE HCL) 50 Mg Tablet, 50 MG PO QHS, #90 TAB 1 Refill Prov:LENIN ANTONIO APRN-C 12/05/17 Metoprolol Succinate (TOPROL XL) 50 Mg Tab.er.24h, 0.5 TAB PO QDAY, #30 TAB 5 Refills Prov:LENIN ANTONIO APRN 03/20/17 Reported Medications Oxygen (OXYGEN) Inha, 2 L INH, L 12/26/17 Duloxetine Hcl (CYMBALTA) 30 Mg Capsule.dr, 30 MG PO QDAY, #5 CAP 12/21/17 Aspirin (ASPIRIN) 81 Mg Tab.chew, 81 MG PO QDAY, TAB.CHEW 12/02/17 Diet: Diabetic Activity: As Tolerated Special Instructions: Copies to: LENIN ANTONIO APRN Venous Thromboembolism Antithrombotics Is Pt On Any Antithrombotics?: Yes ARSH DACOSTA MD Apr 04, 2018 11:57
== END 2018-04-04 13:42 | DRG 91 ==
LOC: ER 15:37 → INTOOBSV 19:38 → MED 19:38 → OBSVTOIN 19:38
PROVIDERS: ADMIT Internal Medicine; ATTEND Internal Medicine
PROC: 05H733Z Insertion of Infusion Device into Right Axillary Vein, Percutaneous Approach (ICD-10-PCS; principal; 2018-04-02)
PROC: B54MZZA Ultrasonography of Right Upper Extremity Veins, Guidance (ICD-10-PCS; 2018-04-02)
DX: T85.730A Infection and inflammatory reaction due to ventricular intracranial (communicating) shunt, initial encounter (principal); A41.01 Sepsis due to Methicillin susceptible Staphylococcus aureus; B37.49 Other urogenital candidiasis; Z68.42 Body mass index [BMI] 45.0-49.9, adult; T83.511A Infection and inflammatory reaction due to indwelling urethral catheter, initial encounter; B96.89 Other specified bacterial agents as the cause of diseases classified elsewhere; B37.2 Candidiasis of skin and nail; N31.9 Neuromuscular dysfunction of bladder, unspecified; E83.42 Hypomagnesemia; J30.9 Allergic rhinitis, unspecified; G47.33 Obstructive sleep apnea (adult) (pediatric); I25.10 Atherosclerotic heart disease of native coronary artery without angina pectoris; I10 Essential (primary) hypertension; E11.649 Type 2 diabetes mellitus with hypoglycemia without coma; L89.322 Pressure ulcer of left buttock, stage 2; E66.01 Morbid (severe) obesity due to excess calories; G89.29 Other chronic pain; Q05.9 Spina bifida, unspecified; Z88.0 Allergy status to penicillin; Z88.1 Allergy status to other antibiotic agents; Z88.8 Allergy status to other drugs, medicaments and biological substances; Z79.01 Long term (current) use of anticoagulants; Z79.4 Long term (current) use of insulin; Z87.440 Personal history of urinary (tract) infections; Z86.718 Personal history of other venous thrombosis and embolism; Z90.49 Acquired absence of other specified parts of digestive tract; Z91.041 Radiographic dye allergy status; Z91.19 Patient's noncompliance with other medical treatment and regimen; Z93.3 Colostomy status
CPT/HCPCS: 36415; 36416; 36569; 71045; 71046; 71275; 76937; 81001; 82040; 82247; 82310; 82374; 82435; 82565; 82947; 82948; 83605; 83735; 84075; 84132; 84155; 84295; 84450; 84460; 84484; 84520; 85025; 85610; 85730; 86140; 87040; 87077; 87088; 87186; 93005; 93306; 94640; 96361; 96374; 97161; 99284; C1751; J0690; J1170; J1335; J1450; J1650; J1815; J2405; J3243; J3475; J7030; J7050; Q9967

== ENCOUNTER → 2018-03-26 | Outpatient (CLI) | payer MEDICARE, MEDICAID ==
[2017-12-26 12:06] VITALS: BMI 48.4
== END ==
LOC: AMB 15:00
PROVIDERS: ATTEND Nurse Practitioner
DX: R07.1 Chest pain on breathing (principal); R09.02 Hypoxemia; R61 Generalized hyperhidrosis
CPT/HCPCS: A0425; A0429

== ENCOUNTER 2018-04-04 13:49 | Inpatient (IN) | payer MEDICARE, MEDICAID ==
[2017-12-26 12:06] VITALS: Ht 170.2 cm; Wt 151.8 kg
[~2018-04-04] VITALS: Ht 170.2 cm; Wt 151.8 kg
[~2018-04-04 13:49] MED LIST changes: -TRAZ-156 PO; +TRAZ50TA34 PO
[2018-04-04] MEDS ORDERED: PNEUMOCOC VAC POLY 25MCG/0.5ML IM ONLY ONE (14:00)
[2018-04-04] MEDS ORDERED: ceFAZolin(*) 1 GM VIAL 1 GM in NS(*) 0.9% 100 ML ADDVANT BAG 100 ML IV SCH ×2 (14:03→22:00)
[2018-04-04] MEDS ORDERED: SIMETHICONE 80 MG CHEW CHEW PRN (14:03)
[2018-04-04 14:10] VITALS: BP 114/67
[2018-04-04] MEDS: oxyCODONE HCL 5 MG CAP PO PRN ×2 (16:52→23:40)
[2018-04-04] MEDS: INSULIN HUM LISPRO 100 UN/ML 3 ML VIAL SUBQ PRN ×2 (16:52→20:29)
[2018-04-04] MEDS: ACETAMINOPHEN 325 MG TAB PO PRN ×2 (16:57→23:40)
[2018-04-04] MEDS: GABAPENTIN 300 MG CAP PO SCH (20:28)
[2018-04-04] MEDS: PANTOPRAZOLE SOD 40 MG TABEC PO SCH (20:30)
[2018-04-04] MEDS: ATORVASTATIN 40 MG TAB PO SCH (20:30)
[2018-04-04] MEDS: ceFAZolin(*) 1 GM VIAL 1 GM in NS(*) 0.9% 100 ML ADDVANT BAG 100 ML IV SCH (20:30)
[2018-04-04] MEDS: NS(*) 0.9% 500 ML BAG 500 ML IV PRN (20:30)
[2018-04-04] MEDS: NYSTATIN 100,000 U/GM PWD 15GM TP SCH (20:30)
[2018-04-05] MEDS: ceFAZolin(*) 1 GM VIAL 1 GM in NS(*) 0.9% 100 ML ADDVANT BAG 100 ML IV SCH ×3 (04:29→20:43)
[2018-04-05] MEDS: ACETAMINOPHEN 325 MG TAB PO PRN ×3 (06:01→18:30)
[2018-04-05] MEDS: oxyCODONE HCL 5 MG CAP PO PRN ×3 (06:01→18:32)
[2018-04-05 07:26] LABS: INR 2.37
[2018-04-05 07:30] VITALS: BP 124/69
[2018-04-05] MEDS: METOPROLOL SUCC XL 25 MG TABCR PO SCH (08:47)
[2018-04-05] MEDS: NYSTATIN 100,000 U/GM PWD 15GM TP SCH ×2 (08:47→20:43)
[2018-04-05] MEDS: ASPIRIN 81 MG CHEW PO SCH (08:47)
[2018-04-05] MEDS: GABAPENTIN 300 MG CAP PO SCH ×3 (08:47→20:43)
[2018-04-05] MEDS: MAGNESIUM OXIDE 400 MG TAB PO SCH (08:47)
[2018-04-05] MEDS: DULoxetine HCL 30 MG CAPCR PO SCH (08:47)
[2018-04-05] MEDS: INSULIN GLARGINE 100 U/ML 3 ML PEN SUBQ SCH (08:48)
[2018-04-05] MEDS: INSULIN HUM LISPRO 100 UN/ML 3 ML VIAL SUBQ PRN ×4 (12:11→20:44)
[2018-04-05 12:31] VITALS: BP 142/67
--- NOTE | 2018-04-05 13:07 | EKG ---
FACILITY: [facility] PATIENT NAME: GEORGE ROY : [id number] MR: [id number] V: [id number] EXAM DATE: ORDERING PHYSICIAN: JOHN DUQUE TECHNOLOGIST: Test Reason : Blood Pressure : / mmHG Vent. Rate : 097 BPM Atrial Rate : 097 BPM P-R Int : 128 ms QRS Dur : 084 ms QT Int : 324 ms P-R-T Axes : 071 096 060 degrees QTc Int : 411 ms Normal sinus rhythm Possible left atrial enlargement Rightward axis Borderline ECG No previous ECGs available Confirmed by JOHN HOLT ([id number]) on 04/05/2018 3:33:51 PM Referred By: Confirmed By:JOHN HOLT
[2018-04-05] MEDS: WARFARIN SOD 5 MG TAB PO SCH (13:33)
[2018-04-05] MEDS: FUROSEMIDE 40 MG TAB PO SCH (13:56)
--- NOTE | 2018-04-05 13:56 | Medical Nutrition Therapy ---
Nutrition Anthropometrics Height (Inches): 67.00 Height (Calculated Centimeters: 170.320486 Weight (Pounds): 335 Weight (Calculated Kilograms): 151.982 BMI: 53 Delfino Nutrition Score: Probably Inadequate Delfino Nutrition Risk Score: 12 Dietary Referral Nutrition Risk Factors: Special Diet Nutrition Risk Comment: Diabetic Physical Findings Physical Appearance: Morbidly Obese 40+ (BMI 52.5) Skin Appearance Skin Appearance: Edema Edema Location Modifier: Both Edema Location: LE/Foot Type of Edema: Degree of Edema: 2+ Gastrointestinal Symptoms GI Symtoms: Tube Present: Bowel Sounds: Recent Bowel Pattern: Colostomy Stool Characteristics: Nutritional Diagnosis Nutritional Risk Acuity 2: Abcess/Non-Healing Wound Nutritional Risk Acuity 3: ST I/II Pressure Ulcer Nutritional Risk Acuity 4: Good Appetite Past Medical History: hx abdominal surgery, colostomy, Type IIDM, Indwelling catheter, Frequent UTI, Spina Bifida, GERD, THOMAS, Neurogenic bladder, Syncope, Dizziness, pulmonary embolus, deep venous thrombosis, small bowel obstruction, Decubitus ulcer, CAD, hypomagnesemia, Candidal intertrigo Nutritional Acuity: 2-Moderate Nutrition Diagnosis: Inappropriate Carb Intake Nutrition Etiology: Physiological Causes Nutrition Problem/Etiology/Sym: Inappropriate carb intake related to physiological causes as evidence by elevated whole blood glucose levels ranging from 196-128. Energy Requirement: 2275 ([place] Adj BMI >27.5) Protein Requirement: 152 (1g/kg) Fluid Requirement: 3040 (20ml/kg) Diet Type: Diet as Tolerated JERRY/REG Nutrition Intervention: Cont diet as ordered, Encourage intake, HS snack Drug: Warfarin Do Not Serve Any of the Follow: Broccoli, Brussel Sprouts, Spinach, [place] Lettuce, Cranberry Juice Diet Comment To RSA: 6OZ TO 8OZ OF MEAT (DOUBLE PORTIONS) Nutrition Monitoring & Eval Follow Up Date: Apr 10, 2018 Nutritional Comment: 04/04 Pt was transferred from Med/Surg to [facility] with leg abscess. Pts diet has changed from ADA 2200 calories restriction to a regular diet. Pt is allowed to have 6oz-8oz 9oz (double portion) per meal. Pt has eaten 100% of his breakfast on ECF. Pt has had a 30# wt gain since admission. Pt wt was 305 and is now 335. Observed pt breakfast and found pt consumed about 3000mg of Na from romero, ham and cottage cheese. Pt has +2 edema in both LE/feet. Discourage high Na intake. Pt continues to have elevated whole blood glucose from 198-128. No other labs or reports reported at this time. Will continue to monitor pt progress and encourage intake. -SHANDA PHAM Apr 05, 2018 13:01
--- NOTE | 2018-04-05 13:56 | Hospitalist Progress Note ---
Subjective Progress Notes Subjective Called to see patient with chest pain. Per the patient, he has had chest pain on and off intermittently over the past week and a half. The pain occurs when taking a deep breath. Per nursing staff, his VS have been stable and his oxygen requirements have not changed. 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 Physical Exam Vital Signs Date Time Temp Pulse Resp B/P (MAP) Pulse Ox O2 Delivery O2 Flow Rate FiO2 04/05/18 13:22 99.0 04/05/18 12:31 98 142/67 (92) 93 Nasal Cannula 3.5 04/05/18 07:30 20 Intake and Output 04/06/18 07:00 Intake Total 1920 ml Output Total 900 ml Balance 1020 ml Intake Oral 1920 ml Output Urine Total 900 ml General Appearance: Alert, Awake, No Acute Distress Neuro: No Gross deficits Eyes: PERRLA Cardiovascular: Regular Rate and Rhythm, Other (Edema both lower extremities and arms.) Respiratory: Clear to Auscultation (But breath sounds are diminished bilaterally. No rales, rhonchi or wheezing.) GI: Soft and Non-Tender (Ostomy bag in place.) Extremities: Warm, Edema (2+ bilaterally. Some redness of the LE bilaterally without evidence of abrasion or drainage. No difference in temperature between red areas and nonred areas. ) Integumentary: Skin Intact without Lesion / Mass Psych: Alert & Oriented X3, Appropriate Mood & Affect Assessment and Plan Problems: (1) Chest pain Status: Acute Assessment & Plan: Called to see the patient due to chest pain. The patient states he has had intermittent chest pain for a week and a half. He has also had a cough. CXR on admission showed bronchial thickening. His EKG is unchanged. Troponin is < 0.12. He likely has bronchitis which is most likely viral. O2 requirements are unchanged. Continue to monitor. (2) Sepsis due to Staphylococcus aureus Status: Acute Assessment & Plan: He did present with fever. 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 He has been told he is not a candidate to have the shunt removed due to very high surgical risk. He was started on empiric treatment with Ertapenem and tigecycline, this admission. His cultures have grown the same strain of methicillin sensitive Staphylococcus that he has had in the past. He is now on treatment with Ancef. Repeat blood cultures are negative, he is afebrile and his WBC is in normal range. Dr. Calvert (the patient's ID physician) recommends 6 weeks of IV antibiotics, then chronic oral antibiotics. Echo results are still pending. He had a PICC line placed on 04/02. He is going to [facility] for IV antibiotics. (3) UTI (urinary tract infection) Assessment & Plan: He was started on empiric treatment with ertapenem. 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 He was treated with several doses of fluconazole. The ertapenem and fluconazole have now been stopped. No further treatment unless he becomes symptomatic. (4) Type 2 diabetes mellitus Status: Chronic Assessment & Plan: He has been on Lantus 75units AM and 65units PM, but also does not follow diet at home and previously has had problems with hypoglycemia when on ADA diet in hospital. His Lantus doses have been reduced and the evening dose has been discontinued. (5) Hx of deep venous thrombosis Status: Chronic Assessment & Plan: He is on chronic treatment with warfarin, but was subtherapeutic at admission. He was placed on Lovenox and his warfarin dose was increased. His INR was over therapeutic range and the warfarin was on hold. Daily INR (6) Candidal intertrigo Status: Chronic Assessment & Plan: He has been treated with Nystatin powder. (7) Decubitus ulcer Status: Chronic Assessment & Plan: A wound care consult is ongoing. (8) Chronic pain Status: Chronic Assessment & Plan: He is on chronic treatment with oxycodone. (9) Hypomagnesemia Status: Resolved Assessment & Plan: He has received several doses of supplemental magnesium. (10) Cough Status: Chronic Assessment & Plan: See above. The patient has had cough and chest pain for about a week and a half. CXR shows bronchial thickening. His O2 requirements are at baseline. Most likely he has bronchitis. Will monitor. Central Venous Access Medical Necessity for Access: IV Access, Medication Administration JOHN DUQUE MD Apr 05, 2018 13:56
[2018-04-05 15:00] VITALS: BP 125/85
[2018-04-05] MEDS: ATORVASTATIN 40 MG TAB PO SCH (20:43)
[2018-04-05] MEDS: PANTOPRAZOLE SOD 40 MG TABEC PO SCH (20:43)
[2018-04-05] MEDS: traZODone HCL 50 MG TAB PO PRN (21:44)
[2018-04-06] MEDS: ACETAMINOPHEN 325 MG TAB PO PRN ×4 (01:50→21:30)
[2018-04-06] MEDS: oxyCODONE HCL 5 MG CAP PO PRN ×4 (01:51→21:16)
[2018-04-06] MEDS ORDERED: ceFAZolin 1 GM VIAL ONE (05:36)
[2018-04-06] MEDS ORDERED: NS(*) 0.9% 100 ML BAG 100 ML ONE (05:37)
[2018-04-06] MEDS: ceFAZolin(*) 1 GM VIAL 1 GM in NS(*) 0.9% 100 ML ADDVANT BAG 100 ML IV SCH ×3 (05:46→21:15)
[2018-04-06 06:15] LABS: PLATELET COUNT, AUTOMATED 337 K/uL (150-450)
[2018-04-06 07:28] LABS: INR 2.08
[2018-04-06 08:30] VITALS: BP 140/86
[2018-04-06] MEDS: METOPROLOL SUCC XL 25 MG TABCR PO SCH (08:45)
[2018-04-06] MEDS: FUROSEMIDE 40 MG TAB PO SCH (08:45)
[2018-04-06] MEDS: MAGNESIUM OXIDE 400 MG TAB PO SCH (08:45)
[2018-04-06] MEDS: DULoxetine HCL 30 MG CAPCR PO SCH (08:45)
[2018-04-06] MEDS: INSULIN GLARGINE 100 U/ML 3 ML PEN SUBQ SCH (08:46)
[2018-04-06] MEDS: GABAPENTIN 300 MG CAP PO SCH ×3 (08:46→21:16)
[2018-04-06] MEDS: ASPIRIN 81 MG CHEW PO SCH (08:46)
[2018-04-06] MEDS: INSULIN HUM LISPRO 100 UN/ML 3 ML VIAL SUBQ PRN ×4 (08:47→21:16)
[2018-04-06] MEDS: NYSTATIN 100,000 U/GM PWD 15GM TP SCH ×2 (09:00→21:17)
[2018-04-06] MEDS ORDERED: FUROSEMIDE 40 MG TAB PO SCH (09:00)
[2018-04-06] MEDS: WARFARIN SOD 5 MG TAB PO SCH (12:46)
--- NOTE | 2018-04-06 13:19 | HISTORY AND PHYSICAL ---
See the discharge summary for details and changes to the H&P. He is going to ECF for IV antibiotics. DATE OF ADMISSION April 04, 2018 Reason for Hosp/Final Diag: (1) Sepsis due to Staphylococcus aureus Hospital Course & Plan: He did present with fever. 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 He has been told he is not a candidate to have the shunt removed due to very high surgical risk. He was started on empiric treatment with Ertapenem and tigecycline, this admission. His cultures have grown the same strain of methicillin sensitive Staphylococcus that he has had in the past. He is now on treatment with Ancef. Repeat blood cultures are negative, he is afebrile and his WBC is in normal range. Dr. Calvert (the patient's ID physician) recommends 6 weeks of IV antibiotics, then chronic oral antibiotics. Echo results are still pending. He had a PICC line placed on 04/02. He is going to ECF for IV antibiotics. (2) UTI (urinary tract infection) Hospital Course & Plan: He was started on empiric treatment with ertapenem. 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 He was treated with several doses of fluconazole. The ertapenem and fluconazole have now been stopped. No further treatment unless he becomes symptomatic. (3) Type 2 diabetes mellitus Status: Chronic Hospital Course & Plan: He has been on Lantus 75units AM and 65units PM, but also does not follow diet at home and previously has had problems with hypoglycemia when on ADA diet in hospital. His Lantus doses have been reduced and the evening dose has been discontinued. (4) Hx of deep venous thrombosis Status: Chronic Hospital Course & Plan: He is on chronic treatment with warfarin, but was subtherapeutic at admission. He was placed on Lovenox and his warfarin dose was increased. His INR was over therapeutic range and the warfarin was on hold. Daily INR (5) Candidal intertrigo Status: Chronic Hospital Course & Plan: He has been treated with Nystatin powder. (6) Decubitus ulcer Status: Chronic Hospital Course & Plan: A wound care consult is ongoing. (7) Chronic pain Status: Chronic Hospital Course & Plan: He is on chronic treatment with oxycodone. (8) Hypomagnesemia Status: Resolved Hospital Course & Plan: He has received several doses of supplemental magnesium. (9) Cough Status: Chronic Hospital Course & Plan: Likely, allergic rhinitis related. Flonase tried but he refused, so will stop. Departure Weight (Pounds): 306 Weight (Ounces): 8.0 Result Diagram: 04/04/18 0650 04/04/18 0650 Item Value Date Time White Blood Count 14.1 k/uL H 03/26/18 1555 White Blood Count 14.1 k/uL H 03/27/18 0527 White Blood Count 9.0 k/uL 03/28/18 0522 White Blood Count 7.1 k/uL 03/29/18 0540 Hemoglobin 11.3 g/dL L 03/26/18 1555 Hemoglobin 10.3 g/dL L 03/27/18 0527 Hemoglobin 10.1 g/dL L 03/28/18 0522 Hemoglobin 10.3 g/dL L 03/29/18 0540 Platelet Count 227 K/uL 03/26/18 1555 Platelet Count 169 K/uL 03/27/18 0527 Platelet Count 170 K/uL 03/28/18 0522 Platelet Count 220 K/uL 03/29/18 0540 Neutrophils (%) (Auto) 91.2 % H 03/26/18 1555 Neutrophils (%) (Auto) 88.6 % H 03/27/18 0527 Neutrophils (%) (Auto) 84.0 % H 03/28/18 0522 Neutrophils (%) (Auto) 72.5 % 03/29/18 0540 White Blood Count 5.4 k/uL 03/30/18 0545 White Blood Count 6.6 k/uL 04/01/18 0650 White Blood Count 7.0 k/uL 04/04/18 0650 Hemoglobin 8.8 g/dL *L 04/04/18 0650 Hemoglobin 8.7 g/dL *L 04/03/18 0607 Hemoglobin 9.6 g/dL L 04/01/18 0650 Hemoglobin 9.3 g/dL L 03/31/18 0721 Hemoglobin 10.0 g/dL L 03/30/18 0545 Platelet Count 227 K/uL 03/30/18 0545 Platelet Count 256 K/uL 04/01/18 0650 Platelet Count 317 K/uL 04/04/18 0650 Neutrophils (%) (Auto) 76.6 % H 04/04/18 0650 Neutrophils (%) (Auto) 83.3 % H 04/01/18 0650 Neutrophils (%) (Auto) 63.9 % 03/30/18 0545 Prothromb Time International Ratio 3.06 04/04/18 0650 Prothromb Time International Ratio 3.11 04/03/18 0607 Prothromb Time International Ratio 3.39 04/02/18 0539 Prothromb Time International Ratio 3.94 04/01/18 0650 Prothromb Time International Ratio 3.64 03/31/18 0610 Troponin I < 0.012 ng/ml 03/26/18 1555 Total Bilirubin 0.3 mg/dl 03/26/18 1555 Aspartate Amino Transf (AST/SGOT) 27 U/L 03/26/18 1555 Alanine Aminotransferase (ALT/SGPT) 20 U/L 03/26/18 1555 Blood Urea Nitrogen 16 mg/dl 03/26/18 1555 Creatinine 0.60 mg/dl L 03/26/18 1555 Sodium Level 138 mmol/L 03/26/18 1555 Potassium Level 4.2 mmol/L 03/26/18 1555 Chloride Level 97 mmol/L L 03/26/18 1555 Carbon Dioxide Level 27 mmol/L 03/26/18 1555 Lactate 2.0 mmol/L 03/26/18 1748 Magnesium Level 1.6 mg/dl L 03/28/18 0522 Magnesium Level 1.9 mg/dl 03/29/18 0540 C-Reactive Protein 8.5 mg/dl H 03/30/18 0545 C-Reactive Protein 6.8 mg/dl H 04/03/18 0607 Total Bilirubin 0.3 mg/dl 04/04/18 0650 Aspartate Amino Transf (AST/SGOT) 15 U/L 04/04/18 0650 Alanine Aminotransferase (ALT/SGPT) 20 U/L 04/04/18 0650 Alkaline Phosphatase 149 U/L H 04/04/18 0650 Urine Leukocyte Esterase Large H 03/26/18 1849 Urine RBC 140 /HPF 03/26/18 1849 Urine WBC 297 /HPF 03/26/18 1849 Urine Leukocyte Esterase Large H 03/31/18 1200 Urine RBC 38 /HPF 03/31/18 1200 Urine WBC 33 /HPF 03/31/18 1200 Urine Nitrite Negative 03/31/18 1200 Urine Nitrite Positive H 03/26/18 1849 Urine Squamous Epithelial Cells Many /LPF H 03/26/18 1849 Urine Squamous Epithelial Cells Few /LPF 03/31/18 1200 Urine Transitional Epithelial Cells Few /LPF 03/31/18 1200 Urine Bacteria Few /HPF 03/31/18 1200 Urine Mucus Few /HPF 03/31/18 1200 Urine Yeast (Budding) Few /HPF H 03/31/18 1200 Urine Yeast (Budding) Few /HPF H 03/26/18 1849 Urine Yeast Few /HPF H 03/26/18 1849 Urine Mucus Few /HPF 03/26/18 1849 Urine Bacteria Few /HPF 03/26/181848 Blood cultures from 03/30 and 03/29 are without growth. Blood cultures x2 from 03/26 have growth and sensitivities as below BLOOD CULTURE GRAM STAIN Final 03/27/18-0844 ANAEROBIC BOTTLE POSITIVE GRAM POSITIVE COCCI POSITIVE BLOOD CULTURE GRAM STAIN REPORT CALLED TO: BRITTNY SANTIAGO RN DATE/TIME REPORT CALLED: 03/27/18 0840 BY [facility] BLOOD CULTURE Final 04/02/18-1234 Organism 1 STAPHYLOCOCCUS AUREUS GROWTH PRESENT IN THE ANAEROBIC BOTTLE ID AND SENSITIVITY TO FOLLOW BETA LACTAMASE: POSITIVE NO GROWTH IN AEROBIC BOTTLE AT THIS TIME STA AUREUS M.I.C. RX --------- --- AMPICILLIN/SULBACTAM S CEFAZOLIN S CIPROFLOXACIN >=8 R CLINDAMYCIN >=8 R ERYTHROMYCIN >=8 R GENTAMICIN <=0.5 S LEVOFLOXACIN >=8 R LINEZOLID 2 S OXACILLIN 0.5 S BENZYLPENICILLIN >=0.5 R RIFAMPIN <=0.5 S TETRACYCLINE <=1 S TRIMETHOPRIM/SULFAMETHOXAZOLE <=10 S VANCOMYCIN 1 S Urine culture from 03/31 is growing yeast and GNR SPEC #: [id number] ЕЛЕНА: 03/26/18 STATUS: COMP REQ #: [id number] RECD: 03/26/[address] [facility] [address]: SOHA OTERO MD SOURCE: IDALIA ENTR: 03/26/[address] [facility] [address]: LENIN ANTONIO APRN [employer] [facility]-[facility] SPDESC: ORDERED: CULT URINE Procedure Result Verified URINE CULTURE Final 03/30/18-1259 Organism 1 YEAST SPECIES >100,000 COL/ML Organism 2 CITROBACTER FREUNDII 75-100,000 COL/ML Organism 3 CITROBACTER FREUNDII#2 25-50,000 COL/ML TWO COLONY MORPHOLOGIES OF C. freundii. CIT BING CIT BING#2 M.I.C. RX M.I.C. RX --------- --- --------- --- CEFAZOLIN >=64 R >=64 R CEFTAZIDIME 2 S <=1 S CEFTRIAXONE 4 S 16 I CEFEPIME <=1 S <=1 S CEFOXITIN >=64 R >=64 R ERTAPENEM <=0.5 S <=0.5 S CIPROFLOXACIN <=0.25 S <=0.25 S GENTAMICIN <=1 S <=1 S IMIPENEM 0.5 S 0.5 S LEVOFLOXACIN <=0.12 S <=0.12 S NITROFURANTOIN 256 R 256 R PIPERACILLIN/TAZOBACTAM 8 S <=4 S TOBRAMYCIN <=1 S <=1 S TRIMETHOPRIM/SULFAMETHOXAZOLE <=20 S <=20 S Imaging 04/03/18 Venogram - 1. No gross evidence of DVT involving the left lower extremity veins although the examination was somewhat difficult due to patient' s body habitus 04/02/18 Echo - official report pending 03/26/18 Chest CTA - 1. There is no finding of a new filling defect to suggest pulmonary embolus. There is underfilling of a segmental and subsegmental branch vessels in the medial basal segment of the right lower lobe that represents a stable and chronic finding. 2. Right paratracheal lymph node measuring 1.0 x 1.5 cm in size unchanged when compared to the prior exam. Small lymph nodes noted elsewhere in the pretracheal region and benito. They appear probably stable. 03/26/18 CXR - 1. No acute cardiopulmonary process. EKG Vent. Rate : 146 BPM Atrial Rate : 146 BPM P-R Int : 116 ms QRS Dur : 074 ms QT Int : 284 ms P-R-T Axes : 057 090 060 degrees QTc Int : 442 ms Sinus tachycardia Possible left atrial enlargement Rightward axis Nonspecific ST findings Borderline ECG When compared with ECG of 05-MAR-2018 14:16, No significant change was found Confirmed by ANTHONY DUQUE ([id number]) on 03/27/2018 6:03:16 AM Condition: Improved Discharge: H ECF Discharge Instructions Home Meds Active Scripts Ondansetron (ONDANSETRON ODT) 4 Mg Tab.rapdis, 1 TAB PO Q12H, #30 TAB 1 Refill Prov:LENIN ANTONIO APRN [employer] 03/15/18 Oxycodone Hcl 20 Mg Tab (OXYCODONE HCL 20 MG TAB) 20 Mg Tablet, 1 TAB PO Q6H Y for PAIN, #120 TAB 0 Refills Prov:LENIN ANTONIO APRN [employer] 02/26/18 Atorvastatin Calcium (ATORVASTATIN CALCIUM) 40 Mg Tablet, 1 TAB PO QHS, #90 TAB 1 Refill Prov:LENIN ANTONIO APRN [employer] 02/21/18 Cefuroxime Axetil (CEFUROXIME) 500 Mg Tablet, 500 MG PO BID for 5 Days, #10 TAB Prov:ANDER CAMPOS MD 02/19/18 Ferrous Sulfate (FERROUS SULFATE) 325 Mg Tablet, 1 TAB PO BID, #180 TAB 0 Refills Prov:LENIN ANTONIO APRN [employer] 02/06/18 Gabapentin (GABAPENTIN) 600 Mg Tablet, 600 MG PO TID, #270 TAB 1 Refill Prov:LENIN ANTONIO APRN [employer] 02/05/18 Warfarin Sodium (COUMADIN) 5 Mg Tablet, 1-1.5 TAB PO QDAY@13, #45 TAB 5 Refills 1.5 tabs every monday and 1 tab all other days Prov:LENIN ANTONIO APRN-C 01/31/18 Lactobacillus Rhamnosus Gg (CULTURELLE) 1 Each Capsule, 1 EACH PO NOON, #30 CAPSULE 0 Refills Prov:LENIN ANTONIO APRN-C 01/30/18 Amitriptyline Hcl (AMITRIPTYLINE HCL) 25 Mg Tablet, 25 MG PO QHS, #90 TAB 1 Refill Prov:LENIN ANTONIO APRN-Mario 01/30/18 Insulin Glargine 100 Un/Ml Pen (LANTUS SOLOSTAR PEN) 100 Unit/1 Ml Insuln.pen, 55 UNIT SUBQ QAM, #3 ML Prov:RODRIGO BARRIGA DO 01/11/18 Insulin Glargine 100 Un/Ml Pen (LANTUS SOLOSTAR PEN) 100 Unit/1 Ml Insuln.pen, 25 UNIT SUBQ QHS, #3 ML Prov:RODRIGO BARRIGA DO 01/11/18 Insulin Aspart 100 Un/Ml Pen (NOVOLOG FLEXPEN) 100 Unit/1 Ml Insuln.pen, 20 UNIT SUBQ TIDAC, #3 ML Prov:RODRIGO BARRIGA DO 01/11/18 Furosemide (FUROSEMIDE) 40 Mg Tablet, 40 MG PO QDAY, #30 TAB Prov:RODRIGO BARRIGA DO 01/11/18 Magnesium Oxide (MAGNESIUM OXIDE) 400 Mg Tablet, 1 TAB PO DAILY, #180 TAB 2 Refills Prov:JOHN DUQUE MD 12/21/17 [Ostomy Supplies] No Conflict Check Prov:LENIN ANTONIO APRN-Mario 12/21/17 NYSTATIN [id number] UNT/ML Topical Cream (NYSTATIN [id number] UNT/ML Topical Cream) 15 Gm Cream..g., 1 JAEL TP BID, #120 GM 2 Refills Apply to yeast infection twice daily until resolved then treat the area once daily M, W, F Prov:LENIN ANTONIO APRN-C 12/19/17 Trazodone Hcl (TRAZODONE HCL) 50 Mg Tablet, 50 MG PO QHS, #90 TAB 1 Refill Prov:LENIN ANTONIO APRN 12/05/17 Metoprolol Succinate (TOPROL XL) 50 Mg Tab.er.24h, 0.5 TAB PO QDAY, #30 TAB 5 Refills Prov:LENIN ANTONIO APRN 03/20/17 Reported Medications Oxygen (OXYGEN) Inha, 2 L INH, L 12/26/17 Duloxetine Hcl (CYMBALTA) 30 Mg Capsule.dr, 30 MG PO QDAY, #5 CAP 12/21/17 Aspirin (ASPIRIN) 81 Mg Tab.chew, 81 MG PO QDAY, TAB.CHEW 12/02/17 Diet: Diabetic Activity: As Tolerated Special Instructions: Copies to: LENIN ANTONIO APRN Venous Thromboembolism Antithrombotics Is Pt On Any Antithrombotics?: Yes ARSH DACOSTA MD Apr 04, 2018 11:57 <Electronically signed by ARSH DACOSTA MD> D/ [id number] PETELARS/LP CC: LENIN ANTONIO APRN MTDD
[2018-04-06 15:00] VITALS: BP 165/82
[2018-04-06] MEDS: PANTOPRAZOLE SOD 40 MG TABEC PO SCH (21:16)
[2018-04-06] MEDS: ATORVASTATIN 40 MG TAB PO SCH (21:16)
[2018-04-07] MEDS: ACETAMINOPHEN 325 MG TAB PO PRN ×4 (03:51→23:36)
[2018-04-07] MEDS: oxyCODONE HCL 5 MG CAP PO PRN ×4 (03:51→23:36)
[2018-04-07] MEDS: ceFAZolin(*) 1 GM VIAL 1 GM in NS(*) 0.9% 100 ML ADDVANT BAG 100 ML IV SCH ×3 (04:48→20:50)
[2018-04-07 07:08] LABS: INR 2.33
[2018-04-07 08:30] VITALS: BP 142/69
[2018-04-07] MEDS: NYSTATIN 100,000 U/GM PWD 15GM TP SCH ×2 (09:00→20:50)
[2018-04-07] MEDS: MAGNESIUM OXIDE 400 MG TAB PO SCH (09:09)
[2018-04-07] MEDS: DULoxetine HCL 30 MG CAPCR PO SCH (09:09)
[2018-04-07] MEDS: ASPIRIN 81 MG CHEW PO SCH (09:09)
[2018-04-07] MEDS: METOPROLOL SUCC XL 25 MG TABCR PO SCH (09:09)
[2018-04-07] MEDS: GABAPENTIN 300 MG CAP PO SCH ×3 (09:09→20:51)
[2018-04-07] MEDS: FUROSEMIDE 40 MG TAB PO SCH (09:09)
[2018-04-07] MEDS: INSULIN GLARGINE 100 U/ML 3 ML PEN SUBQ SCH (09:10)
[2018-04-07] MEDS: INSULIN HUM LISPRO 100 UN/ML 3 ML VIAL SUBQ PRN ×4 (09:10→20:54)
[2018-04-07] MEDS ORDERED: ALTEPLASE RECOMB 2 MG VIAL IVP PRN (12:35)
[2018-04-07] MEDS: ONDANSETRON 4 MG/2 ML VIAL IVP PRN (12:49)
[2018-04-07] MEDS ORDERED: WATER FOR INJ,STERILE 20 ML IVP PRN (12:50)
[2018-04-07] MEDS: WARFARIN SOD 5 MG TAB PO SCH (13:08)
[2018-04-07 13:12] VITALS: BP 121/65
[2018-04-07] MEDS: TRIAMCINOLONE ACE 0.1% CR 80GM TP SCH ×2 (17:30→20:51)
[2018-04-07] MEDS: ATORVASTATIN 40 MG TAB PO SCH (20:51)
[2018-04-07] MEDS: PANTOPRAZOLE SOD 40 MG TABEC PO SCH (20:51)
[2018-04-07] MEDS: traZODone HCL 50 MG TAB PO PRN (23:36)
[2018-04-08] MEDS: ceFAZolin(*) 1 GM VIAL 1 GM in NS(*) 0.9% 100 ML ADDVANT BAG 100 ML IV SCH ×3 (04:25→21:21)
[2018-04-08] MEDS: ACETAMINOPHEN 325 MG TAB PO PRN ×4 (05:46→23:56)
[2018-04-08] MEDS: oxyCODONE HCL 5 MG CAP PO PRN ×4 (05:46→23:56)
[2018-04-08 07:30] LABS: PLATELET COUNT, AUTOMATED 386 K/uL (150-450)
[2018-04-08 07:40] VITALS: BP 113/73
[2018-04-08 08:03] LABS: INR 2.77
[2018-04-08] MEDS: FUROSEMIDE 40 MG TAB PO SCH (08:43)
[2018-04-08] MEDS: NYSTATIN 100,000 U/GM PWD 15GM TP SCH ×2 (08:43→21:21)
[2018-04-08] MEDS: MAGNESIUM OXIDE 400 MG TAB PO SCH (08:43)
[2018-04-08] MEDS: METOPROLOL SUCC XL 25 MG TABCR PO SCH (08:43)
[2018-04-08] MEDS: GABAPENTIN 300 MG CAP PO SCH ×3 (08:43→21:20)
[2018-04-08] MEDS: ASPIRIN 81 MG CHEW PO SCH (08:43)
[2018-04-08] MEDS: DULoxetine HCL 30 MG CAPCR PO SCH (08:43)
[2018-04-08] MEDS: INSULIN HUM LISPRO 100 UN/ML 3 ML VIAL SUBQ PRN ×4 (08:44→21:21)
[2018-04-08] MEDS: TRIAMCINOLONE ACE 0.1% CR 80GM TP SCH ×2 (08:45→21:00)
[2018-04-08] MEDS: INSULIN GLARGINE 100 U/ML 3 ML PEN SUBQ SCH (08:45)
[2018-04-08] MEDS: WARFARIN SOD 5 MG TAB PO SCH (13:35)
[2018-04-08 14:15] VITALS: BP 121/69
[2018-04-08] MEDS: CALCIUM CARBONATE 500 MG CHEW PO PRN (14:48)
[2018-04-08] MEDS: PANTOPRAZOLE SOD 40 MG TABEC PO SCH (21:21)
[2018-04-08] MEDS: ATORVASTATIN 40 MG TAB PO SCH (21:21)
[2018-04-09] MEDS: ceFAZolin(*) 1 GM VIAL 1 GM in NS(*) 0.9% 100 ML ADDVANT BAG 100 ML IV SCH ×3 (05:01→21:32)
[2018-04-09] MEDS: NS(*) 0.9% 500 ML BAG 500 ML IV PRN (05:01)
[2018-04-09] MEDS: oxyCODONE HCL 5 MG CAP PO PRN ×3 (06:00→18:30)
[2018-04-09] MEDS: ACETAMINOPHEN 325 MG TAB PO PRN ×3 (06:01→18:29)
[2018-04-09 06:15] LABS: INR 3.58
[2018-04-09 07:20] VITALS: BP 128/70
[2018-04-09] MEDS: ASPIRIN 81 MG CHEW PO SCH (08:47)
[2018-04-09] MEDS: TRIAMCINOLONE ACE 0.1% CR 80GM TP SCH ×2 (08:47→21:32)
[2018-04-09] MEDS: MAGNESIUM OXIDE 400 MG TAB PO SCH (08:47)
[2018-04-09] MEDS: GABAPENTIN 300 MG CAP PO SCH ×3 (08:47→21:32)
[2018-04-09] MEDS: FUROSEMIDE 40 MG TAB PO SCH (08:47)
[2018-04-09] MEDS: METOPROLOL SUCC XL 25 MG TABCR PO SCH (08:47)
[2018-04-09] MEDS: NYSTATIN 100,000 U/GM PWD 15GM TP SCH ×2 (08:48→21:00)
[2018-04-09] MEDS: DULoxetine HCL 30 MG CAPCR PO SCH (08:48)
[2018-04-09] MEDS: INSULIN GLARGINE 100 U/ML 3 ML PEN SUBQ SCH (08:49)
[2018-04-09] MEDS: INSULIN HUM LISPRO 100 UN/ML 3 ML VIAL SUBQ PRN ×4 (08:49→21:33)
[2018-04-09] MEDS: WARFARIN SOD 5 MG TAB PO SCH (12:29)
--- NOTE | 2018-04-09 15:24 | Medical Nutrition Therapy ---
Nutrition Anthropometrics Height (Inches): 67.00 Height (Calculated Centimeters: [phone] Weight (Pounds): 332 Weight (Calculated Kilograms): 150.593 BMI: 53 Delfino Nutrition Score: Adequate Delfino Nutrition Risk Score: 14 Dietary Referral Nutrition Risk Factors: Special Diet Nutrition Risk Comment: Diabetic Physical Findings Physical Appearance: Morbidly Obese 40+ (BMI 52.5) Skin Appearance Skin Appearance: Edema Edema Location Modifier: Both Edema Location: Arm Type of Edema: Degree of Edema: 2+ Gastrointestinal Symptoms GI Symtoms: Tube Present: Bowel Sounds: Recent Bowel Pattern: Colostomy Stool Characteristics: Nutritional Diagnosis Nutritional Risk Acuity 2: Abcess/Non-Healing Wound Nutritional Risk Acuity 3: ST I/II Pressure Ulcer Nutritional Risk Acuity 4: Good Appetite Past Medical History: hx abdominal surgery, colostomy, Type IIDM, Indwelling catheter, Frequent UTI, Spina Bifida, GERD, THOMAS, Neurogenic bladder, Syncope, Dizziness, pulmonary embolus, deep venous thrombosis, small bowel obstruction, Decubitus ulcer, CAD, hypomagnesemia, Candidal intertrigo Nutritional Acuity: 2-Moderate Nutrition Diagnosis: Inappropriate Carb Intake Nutrition Etiology: Physiological Causes Nutrition Problem/Etiology/Sym: Inappropriate carb intake related to physiological causes as evidence by elevated whole blood glucose level of 277. Energy Requirement: 2275 ([place] Adj BMI >27.5) Protein Requirement: 152 (1g/kg) Fluid Requirement: 3040 (20ml/kg) Diet Type: Diet as Tolerated JERRY/REG Nutrition Intervention: Cont diet as ordered, Encourage intake, HS snack Drug: Diuretics, Warfarin Do Not Serve Any of the Follow: Broccoli, Brussel Sprouts, Spinach, [place] Lettuce, Cranberry Juice Diet Comment To RSA: 6OZ TO 8OZ OF MEAT (DOUBLE PORTIONS) Nutrition Monitoring & Eval Nutrition Goals: Eat 50-100% Meal RD Patient Assessment Time: [address] Assessment Type: RD Re-Assessment Patient Nutrition Acuity: 2-Moderate Follow Up Date: Apr 17, 2018 Nutritional Comment: 04/04 Pt was transferred from Med/Surg to [facility] with leg abscess. Pts diet has changed from ADA 2200 calories restriction to a regular diet. Pt is allowed to have 6oz-8oz 9oz (double portion) per meal. Pt has eaten 100% of his breakfast on ECF. Pt has had a 30# wt gain since admission. Pt wt was 305 and is now 335. Observed pt breakfast and found pt consumed about 3000mg of Na from romero, ham and cottage cheese. Pt has +2 edema in both LE/feet. Discourage high Na intake. Pt continues to have elevated whole blood glucose from 198-128. No other labs or reports reported at this time. Will continue to monitor pt progress and encourage intake. -CT 04/09 Pt continues regular diet, consuming 100% large portion meals. Pt has also been ordering a pitcher of ice tea. Pt's blood glucose have increased since last week. This morning at 7:21AM whole blood glucose was (277). Pt will continue to receive antibiotics through PICC line for the next 6 weeks, along with antibiotics give PO. Hypomagnesemia has been resolved. will continue to monitor pt progress and encourage intake. -SHANDA PHAM Apr 09, 2018 08:24
[2018-04-09 16:05] VITALS: BP 151/81
[2018-04-09] MEDS: PANTOPRAZOLE SOD 40 MG TABEC PO SCH (21:32)
[2018-04-09] MEDS: ATORVASTATIN 40 MG TAB PO SCH (21:32)
[2018-04-10] MEDS: ACETAMINOPHEN 325 MG TAB PO PRN ×4 (00:39→19:28)
[2018-04-10] MEDS: oxyCODONE HCL 5 MG CAP PO PRN ×4 (00:39→19:29)
[2018-04-10] MEDS: ceFAZolin(*) 1 GM VIAL 1 GM in NS(*) 0.9% 100 ML ADDVANT BAG 100 ML IV SCH ×3 (05:20→20:50)
[2018-04-10 06:00] LABS: INR 3.1
[2018-04-10 08:00] VITALS: BP 149/73
[2018-04-10] MEDS: DULoxetine HCL 30 MG CAPCR PO SCH (09:08)
[2018-04-10] MEDS: MAGNESIUM OXIDE 400 MG TAB PO SCH (09:09)
[2018-04-10] MEDS: FUROSEMIDE 40 MG TAB PO SCH (09:09)
[2018-04-10] MEDS: METOPROLOL SUCC XL 25 MG TABCR PO SCH (09:09)
[2018-04-10] MEDS: ASPIRIN 81 MG CHEW PO SCH (09:10)
[2018-04-10] MEDS: GABAPENTIN 300 MG CAP PO SCH ×3 (09:11→20:49)
[2018-04-10] MEDS: INSULIN GLARGINE 100 U/ML 3 ML PEN SUBQ SCH (09:13)
[2018-04-10] MEDS: INSULIN HUM LISPRO 100 UN/ML 3 ML VIAL SUBQ PRN ×4 (09:17→21:01)
[2018-04-10] MEDS: TRIAMCINOLONE ACE 0.1% CR 80GM TP SCH ×2 (10:22→20:49)
[2018-04-10] MEDS: NYSTATIN 100,000 U/GM PWD 15GM TP SCH ×2 (10:23→20:49)
[2018-04-10] MEDS: WARFARIN SOD 5 MG TAB PO SCH (13:04)
[2018-04-10 16:15] VITALS: BP 127/70
[2018-04-10] MEDS: ATORVASTATIN 40 MG TAB PO SCH (20:50)
[2018-04-10] MEDS: PANTOPRAZOLE SOD 40 MG TABEC PO SCH (20:50)
[2018-04-11] MEDS: ACETAMINOPHEN 325 MG TAB PO PRN ×2 (03:42→19:16)
[2018-04-11] MEDS: oxyCODONE HCL 5 MG CAP PO PRN ×4 (03:43→23:36)
[2018-04-11] MEDS: ceFAZolin(*) 1 GM VIAL 1 GM in NS(*) 0.9% 100 ML ADDVANT BAG 100 ML IV SCH ×3 (05:07→20:25)
[2018-04-11 06:46] LABS: PLATELET COUNT, AUTOMATED 459 K/uL (150-450)
[2018-04-11 07:11] LABS: INR 4.2
[2018-04-11 07:45] VITALS: BP 125/57
[2018-04-11] MEDS: TRIAMCINOLONE ACE 0.1% CR 80GM TP SCH ×2 (08:45→20:23)
[2018-04-11] MEDS: INSULIN GLARGINE 100 U/ML 3 ML PEN SUBQ SCH ×2 (08:46→20:26)
[2018-04-11] MEDS: ASPIRIN 81 MG CHEW PO SCH (08:46)
[2018-04-11] MEDS: FUROSEMIDE 40 MG TAB PO SCH (08:46)
[2018-04-11] MEDS: MAGNESIUM OXIDE 400 MG TAB PO SCH (08:47)
[2018-04-11] MEDS: DULoxetine HCL 30 MG CAPCR PO SCH (08:48)
[2018-04-11] MEDS: METOPROLOL SUCC XL 25 MG TABCR PO SCH (08:48)
[2018-04-11] MEDS: GABAPENTIN 300 MG CAP PO SCH ×3 (08:48→20:21)
[2018-04-11] MEDS: NYSTATIN 100,000 U/GM PWD 15GM TP SCH ×2 (08:48→20:22)
[2018-04-11] MEDS: INSULIN HUM LISPRO 100 UN/ML 3 ML VIAL SUBQ PRN ×4 (08:49→20:26)
--- NOTE | 2018-04-11 14:13 | Hospitalist Progress Note ---
Subjective Progress Notes Subjective The patient's mom is ill and he is concerned. He is coughing and would like some Mucinex. His blood sugars have been high. He would like his pain medication increased. INR is high today. Physical Exam Vital Signs Date Time Temp Pulse Resp B/P (MAP) Pulse Ox O2 Delivery O2 Flow Rate FiO2 04/11/18 09:00 94 Nasal Cannula 3.5 04/11/18 07:45 98.7 101 18 125/57 (79) Intake and Output 04/12/18 07:00 Intake Total 480 ml Output Total 3525 ml Balance -3045 ml Intake Oral 480 ml Output Urine Total 3525 ml # Voids 1 General Appearance: Alert, Awake, No Acute Distress Neuro: Other (Chronic deficits associated with spina bifida.) Eyes: PERRLA Cardiovascular: Other (Tachy, regular.) Respiratory: Clear to Auscultation GI: Soft and Non-Tender (Obese. Ostomy bag on right side.) Extremities: Warm, Perfused, Other (R leg with 2+ pitting edema.) Integumentary: Generalized Fragile Skin Psych: Appropriate Mood & Affect Result Diagram: 04/11/18 0638 04/11/18 0625 Assessment and Plan Problems: (1) Chest pain Status: Acute Assessment & Plan: Called on 04/05 to see the patient due to chest pain. 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 He has also had a cough. CXR on admission showed bronchial thickening. His EKG was unchanged. Troponin was < 0.12. He likely has bronchitis which is most likely viral. O2 requirements are unchanged. Continue to monitor. Will add Mucinex today for cough. (2) Sepsis due to Staphylococcus aureus Status: Acute Assessment & Plan: He did present with fever. 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 He has been told he is not a candidate to have the shunt removed due to very high surgical risk. He was started on empiric treatment with Ertapenem and tigecycline, this admission. His cultures have grown the same strain of methicillin sensitive Staphylococcus that he has had in the past. He is now on treatment with Ancef. Repeat blood cultures are negative, he is afebrile and his WBC is in normal range. Dr. Calvert (the patient's ID physician) recommends 6 weeks of IV antibiotics, then chronic oral antibiotics. Echo results are still pending. He had a PICC line placed on 04/02. He was transferred to F for IV antibiotics. (3) UTI (urinary tract infection) Assessment & Plan: He was started on empiric treatment with ertapenem. 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 He was treated with several doses of fluconazole. The ertapenem and fluconazole have now been stopped. No further treatment unless he becomes symptomatic. (4) Type 2 diabetes mellitus Status: Chronic Assessment & Plan: He has been on Lantus 75units AM and 65units PM, but also does not follow diet at home and previously has had problems with hypoglycemia when on ADA diet in hospital. His Lantus doses were reduced and the evening dose was discontinued initially. His sugars are high. Will add Lantus at HS and insulin before meals. (5) Hx of deep venous thrombosis Status: Chronic Assessment & Plan: He is on chronic treatment with warfarin, but was subtherapeutic at admission. He was placed on Lovenox and his warfarin dose was increased. His INR is now over therapeutic range and the warfarin is on hold. Daily INR. Restart at a lower dose when his INR drops below 3. (6) Candidal intertrigo Status: Chronic Assessment & Plan: He has been treated with Nystatin powder. (7) Decubitus ulcer Status: Chronic Assessment & Plan: A wound care consult is ongoing. (8) Chronic pain Status: Chronic Assessment & Plan: He is on chronic treatment with oxycodone. He takes 4 tablets daily at home. He wants to increase to 6 tablets daily here. Will have him continue q 6 oxycodone and alternate with Tylenol. (9) Hypomagnesemia Status: Resolved Assessment & Plan: He has received several doses of supplemental magnesium. (10) Cough Status: Chronic Assessment & Plan: See above. The patient has had cough and chest pain for about a week and a half. CXR shows bronchial thickening. His O2 requirements are at baseline. Most likely he has bronchitis. Will monitor. Add Mucinex. Central Venous Access Medical Necessity for Access: IV Access, Medication Administration Time Spent on Plan of Care: < 30 min JOHN DUQUE MD Apr 11, 2018 14:13
[2018-04-11] MEDS: INSULIN ASPART 100 U/ML 3 ML PEN SUBQ SCH (16:58)
[2018-04-11 17:20] VITALS: BP 139/81
[2018-04-11] MEDS: guaiFENesin 600 MG TABCR PO SCH (20:21)
[2018-04-11] MEDS: ATORVASTATIN 40 MG TAB PO SCH (20:21)
[2018-04-11] MEDS: PANTOPRAZOLE SOD 40 MG TABEC PO SCH (20:21)
[2018-04-12] MEDS: ACETAMINOPHEN 325 MG TAB PO PRN ×4 (02:37→19:03)
[2018-04-12] MEDS: ceFAZolin(*) 1 GM VIAL 1 GM in NS(*) 0.9% 100 ML ADDVANT BAG 100 ML IV SCH ×3 (05:43→20:30)
[2018-04-12] MEDS: oxyCODONE HCL 5 MG CAP PO PRN ×3 (05:43→19:03)
[2018-04-12 06:59] LABS: PLATELET COUNT, AUTOMATED 438 K/uL (150-450)
[2018-04-12 07:15] LABS: INR 3.33
[2018-04-12 07:30] VITALS: BP 129/78
[2018-04-12] MEDS: METOPROLOL SUCC XL 25 MG TABCR PO SCH (08:25)
[2018-04-12] MEDS: FUROSEMIDE 40 MG TAB PO SCH (08:25)
[2018-04-12] MEDS: ASPIRIN 81 MG CHEW PO SCH (08:25)
[2018-04-12] MEDS: GABAPENTIN 300 MG CAP PO SCH ×3 (08:25→20:29)
[2018-04-12] MEDS: DULoxetine HCL 30 MG CAPCR PO SCH (08:26)
[2018-04-12] MEDS: guaiFENesin 600 MG TABCR PO SCH ×2 (08:26→20:29)
[2018-04-12] MEDS: MAGNESIUM OXIDE 400 MG TAB PO SCH (08:26)
[2018-04-12] MEDS: TRIAMCINOLONE ACE 0.1% CR 80GM TP SCH ×2 (08:26→20:29)
[2018-04-12] MEDS: INSULIN GLARGINE 100 U/ML 3 ML PEN SUBQ SCH ×2 (08:27→20:39)
[2018-04-12] MEDS: INSULIN HUM LISPRO 100 UN/ML 3 ML VIAL SUBQ PRN (08:28)
[2018-04-12] MEDS: INSULIN ASPART 100 U/ML 3 ML PEN SUBQ SCH ×3 (08:30→16:33)
[2018-04-12] MEDS: NYSTATIN 100,000 U/GM PWD 15GM TP SCH ×2 (09:00→20:29)
[2018-04-12] MEDS: INSULIN ASPART 100 U/ML 3 ML PEN SUBQ PRN ×2 (12:37→20:42)
[2018-04-12 16:25] VITALS: BP 122/68
[2018-04-12] MEDS: ATORVASTATIN 40 MG TAB PO SCH (20:29)
[2018-04-12] MEDS: PANTOPRAZOLE SOD 40 MG TABEC PO SCH (20:29)
[2018-04-13] MEDS: ACETAMINOPHEN 325 MG TAB PO PRN ×4 (01:09→19:37)
[2018-04-13] MEDS: oxyCODONE HCL 5 MG CAP PO PRN ×4 (01:09→19:37)
[2018-04-13] MEDS: ceFAZolin(*) 1 GM VIAL 1 GM in NS(*) 0.9% 100 ML ADDVANT BAG 100 ML IV SCH ×3 (04:39→20:30)
[2018-04-13 05:45] LABS: INR 2.4
[2018-04-13 08:15] VITALS: BP 141/84
[2018-04-13] MEDS: NYSTATIN 100,000 U/GM PWD 15GM TP SCH ×2 (09:00→20:32)
[2018-04-13] MEDS: METOPROLOL SUCC XL 25 MG TABCR PO SCH (09:00)
[2018-04-13] MEDS: ASPIRIN 81 MG CHEW PO SCH (09:00)
[2018-04-13] MEDS: MAGNESIUM OXIDE 400 MG TAB PO SCH (09:00)
[2018-04-13] MEDS: DULoxetine HCL 30 MG CAPCR PO SCH (09:00)
[2018-04-13] MEDS: INSULIN GLARGINE 100 U/ML 3 ML PEN SUBQ SCH ×2 (09:01→20:40)
[2018-04-13] MEDS: FUROSEMIDE 40 MG TAB PO SCH (09:01)
[2018-04-13] MEDS: guaiFENesin 600 MG TABCR PO SCH ×2 (09:01→20:30)
[2018-04-13] MEDS: GABAPENTIN 300 MG CAP PO SCH ×3 (09:01→20:30)
[2018-04-13] MEDS: INSULIN ASPART 100 U/ML 3 ML PEN SUBQ SCH ×3 (09:01→17:16)
[2018-04-13] MEDS: INSULIN ASPART 100 U/ML 3 ML PEN SUBQ PRN ×3 (09:02→20:41)
[2018-04-13] MEDS: TRIAMCINOLONE ACE 0.1% CR 80GM TP SCH ×2 (10:16→20:31)
[2018-04-13] MEDS: ONDANSETRON 4 MG/2 ML VIAL IVP PRN ×2 (10:27→19:16)
[2018-04-13] MEDS ORDERED: WARFARIN SOD 2.5 MG TAB PO SCH (13:00)
[2018-04-13 17:00] VITALS: BP 135/70
[2018-04-13] MEDS: PANTOPRAZOLE SOD 40 MG TABEC PO SCH (20:30)
[2018-04-13] MEDS: ATORVASTATIN 40 MG TAB PO SCH (20:30)
[2018-04-13] MEDS: traZODone HCL 50 MG TAB PO PRN (20:46)
[2018-04-14] MEDS: ACETAMINOPHEN 325 MG TAB PO PRN ×4 (02:23→21:06)
[2018-04-14] MEDS: oxyCODONE HCL 5 MG CAP PO PRN ×4 (02:23→21:06)
[2018-04-14] MEDS: ceFAZolin(*) 1 GM VIAL 1 GM in NS(*) 0.9% 100 ML ADDVANT BAG 100 ML IV SCH ×3 (05:20→21:04)
[2018-04-14] MEDS ORDERED: NS(*) 0.9% 1000 ML BAG 1,000 ML ONE (05:27)
[2018-04-14 07:21] LABS: INR 1.63
[2018-04-14 08:00] VITALS: BP 121/74
[2018-04-14] MEDS: INSULIN ASPART 100 U/ML 3 ML PEN SUBQ SCH ×3 (08:33→17:21)
[2018-04-14] MEDS: NYSTATIN 100,000 U/GM PWD 15GM TP SCH ×2 (08:33→21:04)
[2018-04-14] MEDS: TRIAMCINOLONE ACE 0.1% CR 80GM TP SCH ×2 (08:34→21:04)
[2018-04-14] MEDS: INSULIN GLARGINE 100 U/ML 3 ML PEN SUBQ SCH ×2 (08:34→21:05)
[2018-04-14] MEDS: MAGNESIUM OXIDE 400 MG TAB PO SCH (08:35)
[2018-04-14] MEDS: ASPIRIN 81 MG CHEW PO SCH (08:35)
[2018-04-14] MEDS: guaiFENesin 600 MG TABCR PO SCH ×2 (08:35→21:04)
[2018-04-14] MEDS: GABAPENTIN 300 MG CAP PO SCH ×3 (08:35→21:04)
[2018-04-14] MEDS: FUROSEMIDE 40 MG TAB PO SCH (08:35)
[2018-04-14] MEDS: DULoxetine HCL 30 MG CAPCR PO SCH (08:35)
[2018-04-14] MEDS: METOPROLOL SUCC XL 25 MG TABCR PO SCH (08:35)
[2018-04-14] MEDS: INSULIN ASPART 100 U/ML 3 ML PEN SUBQ PRN ×4 (08:36→21:06)
[2018-04-14] MEDS ORDERED: WARFARIN SOD 5 MG TAB PO SCH (13:00)
[2018-04-14 16:35] VITALS: BP 126/77
[2018-04-14] MEDS: PANTOPRAZOLE SOD 40 MG TABEC PO SCH (21:04)
[2018-04-14] MEDS: ATORVASTATIN 40 MG TAB PO SCH (21:04)
[2018-04-15] MEDS: ONDANSETRON 4 MG/2 ML VIAL IVP PRN
[2018-04-15] MEDS: oxyCODONE HCL 5 MG CAP PO PRN ×4 (04:16→22:45)
[2018-04-15] MEDS: ceFAZolin(*) 1 GM VIAL 1 GM in NS(*) 0.9% 100 ML ADDVANT BAG 100 ML IV SCH ×3 (04:16→20:38)
[2018-04-15] MEDS: ACETAMINOPHEN 325 MG TAB PO PRN ×4 (04:16→22:46)
[2018-04-15 07:10] LABS: PLATELET COUNT, AUTOMATED 469 K/uL (150-450)
[2018-04-15 07:48] LABS: INR 1.44
[2018-04-15 07:50] VITALS: BP 89/52
[2018-04-15] MEDS: INSULIN ASPART 100 U/ML 3 ML PEN SUBQ SCH ×3 (08:04→16:45)
[2018-04-15] MEDS: TRIAMCINOLONE ACE 0.1% CR 80GM TP SCH ×2 (09:01→20:38)
[2018-04-15] MEDS: ASPIRIN 81 MG CHEW PO SCH (09:01)
[2018-04-15] MEDS: NYSTATIN 100,000 U/GM PWD 15GM TP SCH ×2 (09:01→20:38)
[2018-04-15] MEDS: FUROSEMIDE 40 MG TAB PO SCH (09:02)
[2018-04-15] MEDS: DULoxetine HCL 30 MG CAPCR PO SCH (09:02)
[2018-04-15] MEDS: guaiFENesin 600 MG TABCR PO SCH ×2 (09:02→20:38)
[2018-04-15] MEDS: GABAPENTIN 300 MG CAP PO SCH ×3 (09:02→20:38)
[2018-04-15] MEDS: MAGNESIUM OXIDE 400 MG TAB PO SCH (09:02)
[2018-04-15] MEDS: METOPROLOL SUCC XL 25 MG TABCR PO SCH (09:02)
[2018-04-15] MEDS: INSULIN GLARGINE 100 U/ML 3 ML PEN SUBQ SCH ×2 (09:03→20:40)
[2018-04-15 17:20] VITALS: BP 121/69
[2018-04-15] MEDS: PANTOPRAZOLE SOD 40 MG TABEC PO SCH (20:38)
[2018-04-15] MEDS: ATORVASTATIN 40 MG TAB PO SCH (20:38)
[2018-04-15] MEDS: INSULIN ASPART 100 U/ML 3 ML PEN SUBQ PRN (20:40)
[2018-04-16] MEDS: oxyCODONE HCL 5 MG CAP PO PRN ×4 (05:05→23:37)
[2018-04-16] MEDS: ceFAZolin(*) 1 GM VIAL 1 GM in NS(*) 0.9% 100 ML ADDVANT BAG 100 ML IV SCH ×3 (05:06→21:34)
[2018-04-16] MEDS: ACETAMINOPHEN 325 MG TAB PO PRN ×4 (05:06→23:37)
[2018-04-16 07:09] LABS: INR 1.21
[2018-04-16] MEDS: INSULIN ASPART 100 U/ML 3 ML PEN SUBQ SCH ×3 (07:39→16:35)
[2018-04-16 07:58] VITALS: BP 100/61
[2018-04-16] MEDS: FUROSEMIDE 40 MG TAB PO SCH (09:01)
[2018-04-16] MEDS: ASPIRIN 81 MG CHEW PO SCH (09:01)
[2018-04-16] MEDS: TRIAMCINOLONE ACE 0.1% CR 80GM TP SCH ×2 (09:01→21:40)
[2018-04-16] MEDS: MAGNESIUM OXIDE 400 MG TAB PO SCH (09:01)
[2018-04-16] MEDS: DULoxetine HCL 30 MG CAPCR PO SCH (09:01)
[2018-04-16] MEDS: GABAPENTIN 300 MG CAP PO SCH ×3 (09:01→21:38)
[2018-04-16] MEDS: METOPROLOL SUCC XL 25 MG TABCR PO SCH (09:01)
[2018-04-16] MEDS: guaiFENesin 600 MG TABCR PO SCH ×2 (09:02→21:38)
[2018-04-16] MEDS: NYSTATIN 100,000 U/GM PWD 15GM TP SCH ×2 (09:02→21:39)
[2018-04-16] MEDS: INSULIN GLARGINE 100 U/ML 3 ML PEN SUBQ SCH ×2 (09:03→21:43)
--- NOTE | 2018-04-16 14:41 | Medical Nutrition Therapy ---
Nutrition Anthropometrics Height (Inches): 67.00 Height (Calculated Centimeters: 170.791756 Weight (Pounds): 334 Weight (Calculated Kilograms): 151.670 BMI: 53 Delfino Nutrition Score: Adequate Delfino Nutrition Risk Score: 14 Dietary Referral Nutrition Risk Factors: Special Diet Nutrition Risk Comment: Diabetic Nutritional Diagnosis Nutritional Risk Acuity 2: Abcess/Non-Healing Wound Nutritional Risk Acuity 3: ST I/II Pressure Ulcer Nutritional Risk Acuity 4: Good Appetite Past Medical History: hx abdominal surgery, colostomy, Type IIDM, Indwelling catheter, Frequent UTI, Spina Bifida, GERD, THOMAS, Neurogenic bladder, Syncope, Dizziness, pulmonary embolus, deep venous thrombosis, small bowel obstruction, Decubitus ulcer, CAD, hypomagnesemia, Candidal intertrigo Nutritional Acuity: 2-Moderate Nutrition Diagnosis: Inappropriate Carb Intake Nutrition Etiology: Physiological Causes Nutrition Problem/Etiology/Sym: Inappropriate carb intake related to physiological causes as evidence by elevated whole blood glucose level of 277. Energy Requirement: 2275 ([place] Adj BMI >27.5) Protein Requirement: 152 (1g/kg) Fluid Requirement: 3040 (20ml/kg) Diet Type: Diet as Tolerated JERRY/REG Nutrition Intervention: Cont diet as ordered, Encourage intake, HS snack Drug: Diuretics, Warfarin Do Not Serve Any of the Follow: Broccoli, Brussel Sprouts, Spinach, [place] Lettuce, Cranberry Juice Diet Comment To RSA: 6OZ TO 8OZ OF MEAT (DOUBLE PORTIONS) Nutrition Monitoring & Eval Nutrition Goals: Eat 90-100% Meal, Drink > 2 liters/day Nutrition Follow-Up: Good Intake RD Patient Assessment Time: [address] Assessment Type: RD Re-Assessment Patient Nutrition Acuity: 2-Moderate Follow Up Date: Apr 24, 2018 Nutritional Comment: 04/04 Pt was transferred from Med/Surg to [facility] with leg abscess. Pts diet has changed from ADA 2200 calories restriction to a regular diet. Pt is allowed to have 6oz-8oz 9oz (double portion) per meal. Pt has eaten 100% of his breakfast on ECF. Pt has had a 30# wt gain since admission. Pt wt was 305 and is now 335. Observed pt breakfast and found pt consumed about 3000mg of Na from romero, ham and cottage cheese. Pt has +2 edema in both LE/feet. Discourage high Na intake. Pt continues to have elevated whole blood glucose from 198-128. No other labs or reports reported at this time. Will continue to monitor pt progress and encourage intake. -MT 04/09 Pt continues regular diet, consuming 100% large portion meals. Pt has also been ordering a pitcher of ice tea. Pt's blood glucose have increased since last week. This morning at 7:21AM whole blood glucose was (277). Pt will continue to receive antibiotics through PICC line for the next 6 weeks, along with antibiotics give PO. Hypomagnesemia has been resolved. will continue to monitor pt progress and encourage intake. -MT 04/16 Pt eating 100% of regular diet with large portions. Alb cont low at 2.4. Will cont to offer double meat portions and encourage high protein and lower CHO intake. BG cont elevated 200-300 however BG today have improved. Will cont to monitor and encourage intake. JOCELYN CARTER Apr 16, 2018 14:41
[2018-04-16 16:45] VITALS: BP 131/59
[2018-04-16] MEDS: ATORVASTATIN 40 MG TAB PO SCH (21:38)
[2018-04-16] MEDS: PANTOPRAZOLE SOD 40 MG TABEC PO SCH (21:38)
[2018-04-16] MEDS: INSULIN ASPART 100 U/ML 3 ML PEN SUBQ PRN (21:45)
[2018-04-16] MEDS: traZODone HCL 50 MG TAB PO PRN (23:38)
[2018-04-17] MEDS: ceFAZolin(*) 1 GM VIAL 1 GM in NS(*) 0.9% 100 ML ADDVANT BAG 100 ML IV SCH ×3 (05:40→20:24)
[2018-04-17] MEDS: oxyCODONE HCL 5 MG CAP PO PRN ×3 (05:40→19:03)
[2018-04-17] MEDS: ACETAMINOPHEN 325 MG TAB PO PRN ×3 (05:40→19:02)
[2018-04-17 07:30] VITALS: BP 93/56
[2018-04-17 07:32] LABS: INR 1.09
[2018-04-17] MEDS: TRIAMCINOLONE ACE 0.1% CR 80GM TP SCH ×2 (09:33→20:26)
[2018-04-17] MEDS: FUROSEMIDE 40 MG TAB PO SCH (09:34)
[2018-04-17] MEDS: METOPROLOL SUCC XL 25 MG TABCR PO SCH (09:34)
[2018-04-17] MEDS: NYSTATIN 100,000 U/GM PWD 15GM TP SCH ×2 (09:34→20:26)
[2018-04-17] MEDS: DULoxetine HCL 30 MG CAPCR PO SCH (09:34)
[2018-04-17] MEDS: ASPIRIN 81 MG CHEW PO SCH (09:34)
[2018-04-17] MEDS: GABAPENTIN 300 MG CAP PO SCH ×3 (09:34→20:25)
[2018-04-17] MEDS: guaiFENesin 600 MG TABCR PO SCH ×2 (09:34→20:25)
[2018-04-17] MEDS: MAGNESIUM OXIDE 400 MG TAB PO SCH (09:34)
[2018-04-17] MEDS: INSULIN GLARGINE 100 U/ML 3 ML PEN SUBQ SCH ×2 (09:35→20:35)
[2018-04-17] MEDS: INSULIN ASPART 100 U/ML 3 ML PEN SUBQ SCH ×3 (09:35→17:15)
[2018-04-17] MEDS: NS(*) 0.9% 500 ML BAG 500 ML IV PRN (13:17)
[2018-04-17 15:40] VITALS: BP 117/68
[2018-04-17] MEDS: PANTOPRAZOLE SOD 40 MG TABEC PO SCH (20:25)
[2018-04-17] MEDS: ATORVASTATIN 40 MG TAB PO SCH (20:25)
[2018-04-17] MEDS: INSULIN ASPART 100 U/ML 3 ML PEN SUBQ PRN (20:34)
[2018-04-17] MEDS: ONDANSETRON 4 MG/2 ML VIAL IVP PRN (21:58)
[2018-04-18] MEDS: oxyCODONE HCL 5 MG CAP PO PRN ×3 (01:16→13:49)
[2018-04-18] MEDS: ACETAMINOPHEN 325 MG TAB PO PRN ×3 (01:17→13:48)
[2018-04-18] MEDS: ceFAZolin(*) 1 GM VIAL 1 GM in NS(*) 0.9% 100 ML ADDVANT BAG 100 ML IV SCH ×3 (05:15→20:17)
[2018-04-18 06:00] LABS: PLATELET COUNT, AUTOMATED 465 K/uL (150-450)
[2018-04-18 06:06] LABS: INR 1.06
[2018-04-18 07:00] VITALS: BP 124/72
[2018-04-18] MEDS: DULoxetine HCL 30 MG CAPCR PO SCH (08:43)
[2018-04-18] MEDS: GABAPENTIN 300 MG CAP PO SCH ×3 (08:43→20:18)
[2018-04-18] MEDS: ASPIRIN 81 MG CHEW PO SCH (08:43)
[2018-04-18] MEDS: MAGNESIUM OXIDE 400 MG TAB PO SCH (08:43)
[2018-04-18] MEDS: METOPROLOL SUCC XL 25 MG TABCR PO SCH (08:43)
[2018-04-18] MEDS: FUROSEMIDE 40 MG TAB PO SCH (08:43)
[2018-04-18] MEDS: INSULIN ASPART 100 U/ML 3 ML PEN SUBQ SCH ×3 (08:44→17:20)
[2018-04-18] MEDS: guaiFENesin 600 MG TABCR PO SCH ×2 (08:44→20:18)
[2018-04-18] MEDS: INSULIN ASPART 100 U/ML 3 ML PEN SUBQ PRN ×4 (08:45→20:28)
[2018-04-18] MEDS: INSULIN GLARGINE 100 U/ML 3 ML PEN SUBQ SCH ×2 (08:46→20:26)
[2018-04-18] MEDS: NYSTATIN 100,000 U/GM PWD 15GM TP SCH ×2 (09:00→20:17)
[2018-04-18] MEDS: TRIAMCINOLONE ACE 0.1% CR 80GM TP SCH ×2 (09:00→20:17)
[2018-04-18] MEDS: CALCIUM CARBONATE 500 MG CHEW PO PRN (10:00)
[2018-04-18 15:40] VITALS: BP 119/72
--- NOTE | 2018-04-18 16:21 | Hospitalist Progress Note ---
Subjective Progress Notes Subjective No new complaints. Would like to have his oxycodone scheduled. Physical Exam Vital Signs Date Time Temp Pulse Resp B/P (MAP) Pulse Ox O2 Delivery O2 Flow Rate FiO2 04/18/18 12:00 93 Nasal Cannula 4.0 04/18/18 07:00 97.4 100 18 124/72 (89) Intake and Output 04/19/18 07:00 Intake Total 1170 ml Output Total 1800 ml Balance -630 ml Intake Oral 1170 ml Output Urine Total 1800 ml General Appearance: Alert, Awake, No Acute Distress Neuro: No Gross deficits (No changed from previous.) Eyes: PERRLA Cardiovascular: Regular Rate and Rhythm Respiratory: Clear to Auscultation GI: Soft and Non-Tender Extremities: Warm, Perfused, Edema (L>R lower extremity, 2+.) Integumentary: Generalized Fragile Skin Psych: Appropriate Mood & Affect Result Diagram: 04/18/18 0550 04/18/18 0550 Assessment and Plan Problems: (1) Chest pain Status: Acute Assessment & Plan: Called on 04/05 to see the patient due to chest pain. 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 He had also had a cough. CXR on admission showed bronchial thickening. His EKG was unchanged. Troponin was < 0.12. He was felt to have bronchitis which was most likely viral. O2 requirements were unchanged. Continue to monitor. Mucinex was added for cough. (2) Sepsis due to Staphylococcus aureus Status: Acute Assessment & Plan: He did present with fever. 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 He has been told he is not a candidate to have the shunt removed due to very high surgical risk. He was started on empiric treatment with Ertapenem and tigecycline, this admission. His cultures have grown the same strain of methicillin sensitive Staphylococcus that he has had in the past. He is now on treatment with Ancef. Repeat blood cultures are negative, he is afebrile and his WBC is in normal range. Dr. Calvert (the patient's ID physician) recommends 6 weeks of IV antibiotics, then chronic oral antibiotics. Echo was done. Report requested. He had a PICC line placed on 04/02. He was transferred to [facility] for IV antibiotics. (3) UTI (urinary tract infection) Assessment & Plan: He was started on empiric treatment with ertapenem. 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 He was treated with several doses of fluconazole. The ertapenem and fluconazole have now been stopped. No further treatment unless he becomes symptomatic. (4) Type 2 diabetes mellitus Status: Chronic Assessment & Plan: He has been on Lantus 75units AM and 65units PM, but also does not follow diet at home and previously has had problems with hypoglycemia when on ADA diet in hospital. His Lantus doses were reduced and the evening dose was discontinued initially. His sugars remain high. Will adjust his insulin doses. (5) Hx of deep venous thrombosis Status: Chronic Assessment & Plan: He is on chronic treatment with warfarin, but was subtherapeutic at admission. He was placed on Lovenox and his warfarin dose was increased. His INR then thuan to over therapeutic range and the warfarin was placed on hold. He then developed anemia and had heme + stool. Warfarin was held and his dark stool improved and his hemoglobin increased. He has had multiple clots (leg, arm, PEs, R atrium) so will restart him on Lovenox and monitor for signs of bleeding. If none, restart warfarin. He has hx of GI bleed and had GI evaluation with Dr. Castillo several years ago and the patient states, "nothing was found". May need to get records. If recurrent bleeding, will need to repeat evaluation. (6) Candidal intertrigo Status: Chronic Assessment & Plan: He has been treated with Nystatin powder. (7) Decubitus ulcer Status: Chronic Assessment & Plan: A wound care consult is ongoing. (8) Chronic pain Status: Chronic Assessment & Plan: He is on chronic treatment with oxycodone. He takes 4 tablets daily at home. He wants to increase to 6 tablets daily here. Will have him continue q 6 oxycodone and alternate with Tylenol. (9) Hypomagnesemia Status: Resolved Assessment & Plan: He has received several doses of supplemental magnesium. (10) Cough Status: Chronic Assessment & Plan: See above. The patient has had cough and chest pain for about a week and a half. CXR shows bronchial thickening. His O2 requirements are at baseline. Most likely he has bronchitis. Will monitor. Add Mucinex. Central Venous Access Medical Necessity for Access: IV Access, Medication Administration Time Spent on Plan of Care: < 30 min JOHN DUQUE MD Apr 18, 2018 16:21
[2018-04-18] MEDS: ACETAMINOPHEN 325 MG TAB PO SCH (17:44)
[2018-04-18] MEDS: oxyCODONE HCL 5 MG CAP PO SCH (17:45)
[2018-04-18] MEDS: PANTOPRAZOLE SOD 40 MG TABEC PO SCH (20:18)
[2018-04-18] MEDS: ATORVASTATIN 40 MG TAB PO SCH (20:18)
[2018-04-18] MEDS: ENOXAPARIN 100 MG/ML SYR SC SCH (20:24)
[2018-04-18] MEDS: ONDANSETRON 4 MG/2 ML VIAL IVP PRN (21:07)
[2018-04-19] MEDS: ACETAMINOPHEN 325 MG TAB PO SCH ×4 (00:05→17:53)
[2018-04-19] MEDS: oxyCODONE HCL 5 MG CAP PO SCH ×4 (00:05→17:53)
[2018-04-19] MEDS: INSULIN ASPART 100 U/ML 3 ML PEN SUBQ PRN ×5 (00:19→20:48)
[2018-04-19] MEDS: ceFAZolin(*) 1 GM VIAL 1 GM in NS(*) 0.9% 100 ML ADDVANT BAG 100 ML IV SCH ×3 (04:59→20:43)
[2018-04-19 08:00] VITALS: BP 113/72
[2018-04-19] MEDS: ENOXAPARIN 100 MG/ML SYR SC SCH ×2 (08:46→20:44)
[2018-04-19] MEDS: ASPIRIN 81 MG CHEW PO SCH (08:47)
[2018-04-19] MEDS: GABAPENTIN 300 MG CAP PO SCH ×3 (08:47→20:45)
[2018-04-19] MEDS: DULoxetine HCL 30 MG CAPCR PO SCH (08:47)
[2018-04-19] MEDS: FUROSEMIDE 40 MG TAB PO SCH (08:47)
[2018-04-19] MEDS: METOPROLOL SUCC XL 25 MG TABCR PO SCH (08:47)
[2018-04-19] MEDS: guaiFENesin 600 MG TABCR PO SCH ×2 (08:47→20:44)
[2018-04-19] MEDS: MAGNESIUM OXIDE 400 MG TAB PO SCH (08:47)
[2018-04-19] MEDS: INSULIN GLARGINE 100 U/ML 3 ML PEN SUBQ SCH ×2 (08:48→20:44)
[2018-04-19] MEDS: INSULIN ASPART 100 U/ML 3 ML PEN SUBQ SCH ×3 (08:48→17:54)
[2018-04-19] MEDS: NYSTATIN 100,000 U/GM PWD 15GM TP SCH ×2 (09:00→20:43)
[2018-04-19] MEDS: TRIAMCINOLONE ACE 0.1% CR 80GM TP SCH ×2 (09:00→20:43)
--- NOTE | 2018-04-19 11:18 | Medical Nutrition Therapy ---
Nutrition Anthropometrics Height (Inches): 67.00 Height (Calculated Centimeters: 170.165588 Weight (Pounds): 333 Weight (Calculated Kilograms): 151.386 BMI: 53 Delfino Nutrition Score: Probably Inadequate Delfino Nutrition Risk Score: 13 Dietary Referral Nutrition Risk Factors: Special Diet Nutrition Risk Comment: Diabetic Physical Findings Physical Appearance: Morbidly Obese 40+ (BMI 52.5) Skin Appearance Skin Appearance: Edema Edema Location Modifier: Left Edema Location: Lower Extremity Type of Edema: Degree of Edema: 3+ Gastrointestinal Symptoms GI Symtoms: Tube Present: Bowel Sounds: Recent Bowel Pattern: Colostomy Stool Characteristics: Nutritional Diagnosis Nutritional Risk Acuity 2: Abcess/Non-Healing Wound Nutritional Risk Acuity 3: ST I/II Pressure Ulcer Nutritional Risk Acuity 4: Good Appetite Past Medical History: hx abdominal surgery, colostomy, Type IIDM, Indwelling catheter, Frequent UTI, Spina Bifida, GERD, THOMAS, Neurogenic bladder, Syncope, Dizziness, pulmonary embolus, deep venous thrombosis, small bowel obstruction, Decubitus ulcer, CAD, hypomagnesemia, Candidal intertrigo Nutritional Acuity: 2-Moderate Nutrition Diagnosis: Inappropriate Carb Intake Nutrition Etiology: Physiological Causes Nutrition Problem/Etiology/Sym: Inappropriate carb intake related to physiological causes as evidence by elevated whole blood glucose level of 277. Energy Requirement: 2275 ([place] Adj BMI >27.5) Protein Requirement: 152 (1g/kg) Fluid Requirement: 3040 (20ml/kg) Diet Type: Diet as Tolerated JERRY/REG Nutrition Intervention: Cont diet as ordered, Encourage intake, HS snack Drug: Diuretics Diet Comment To RSA: 6OZ TO 8OZ OF MEAT (DOUBLE PORTIONS) Nutrition Monitoring & Eval RD Patient Assessment Time: [address] Assessment Type: RD Re-Assessment Patient Nutrition Acuity: 2-Moderate Follow Up Date: Apr 24, 2018 Nutritional Comment: 04/04 Pt was transferred from Med/Surg to [facility] with leg abscess. Pts diet has changed from ADA 2200 calories restriction to a regular diet. Pt is allowed to have 6oz-8oz 9oz (double portion) per meal. Pt has eaten 100% of his breakfast on ECF. Pt has had a 30# wt gain since admission. Pt wt was 305 and is now 335. Observed pt breakfast and found pt consumed about 3000mg of Na from romero, ham and cottage cheese. Pt has +2 edema in both LE/feet. Discourage high Na intake. Pt continues to have elevated whole blood glucose from 198-128. No other labs or reports reported at this time. Will continue to monitor pt progress and encourage intake. -MT 04/09 Pt continues regular diet, consuming 100% large portion meals. Pt has also been ordering a pitcher of ice tea. Pt's blood glucose have increased since last week. This morning at 7:21AM whole blood glucose was (277). Pt will continue to receive antibiotics through PICC line for the next 6 weeks, along with antibiotics give PO. Hypomagnesemia has been resolved. will continue to monitor pt progress and encourage intake. -MT 04/16 Pt eating 100% of regular diet with large portions. Alb cont low at 2.4. Will cont to offer double meat portions and encourage high protein and lower CHO intake. BG cont elevated 200-300 however BG today have improved. Will cont to monitor and encourage intake. MACY 04/19 Pt d/caleb from warfarin. Will provide high Vit K foods upon pt request. JOCELYN CARTER Apr 19, 2018 11:18
[2018-04-19 15:30] VITALS: BP 97/50
[2018-04-19] MEDS: PANTOPRAZOLE SOD 40 MG TABEC PO SCH (20:45)
[2018-04-19] MEDS: ATORVASTATIN 40 MG TAB PO SCH (20:45)
[2018-04-20] MEDS: oxyCODONE HCL 5 MG CAP PO SCH ×4 (00:27→17:56)
[2018-04-20] MEDS: ACETAMINOPHEN 325 MG TAB PO SCH ×4 (00:27→17:56)
[2018-04-20] MEDS: ceFAZolin(*) 1 GM VIAL 1 GM in NS(*) 0.9% 100 ML ADDVANT BAG 100 ML IV SCH ×3 (04:46→20:40)
[2018-04-20 07:45] VITALS: BP 120/59
[2018-04-20] MEDS: ENOXAPARIN 100 MG/ML SYR SC SCH ×2 (08:37→20:44)
[2018-04-20] MEDS: INSULIN GLARGINE 100 U/ML 3 ML PEN SUBQ SCH ×2 (08:37→20:42)
[2018-04-20] MEDS: INSULIN ASPART 100 U/ML 3 ML PEN SUBQ PRN ×4 (08:38→20:43)
[2018-04-20] MEDS: INSULIN ASPART 100 U/ML 3 ML PEN SUBQ SCH ×3 (08:38→17:55)
[2018-04-20] MEDS: TRIAMCINOLONE ACE 0.1% CR 80GM TP SCH ×2 (08:39→20:41)
[2018-04-20] MEDS: NYSTATIN 100,000 U/GM PWD 15GM TP SCH ×2 (08:39→20:45)
[2018-04-20] MEDS: guaiFENesin 600 MG TABCR PO SCH ×2 (08:52→20:44)
[2018-04-20] MEDS: METOPROLOL SUCC XL 25 MG TABCR PO SCH (08:52)
[2018-04-20] MEDS: GABAPENTIN 300 MG CAP PO SCH ×3 (08:52→20:44)
[2018-04-20] MEDS: FUROSEMIDE 40 MG TAB PO SCH (08:52)
[2018-04-20] MEDS: MAGNESIUM OXIDE 400 MG TAB PO SCH (08:52)
[2018-04-20] MEDS: DULoxetine HCL 30 MG CAPCR PO SCH (08:52)
[2018-04-20] MEDS: ASPIRIN 81 MG CHEW PO SCH (08:52)
[2018-04-20 17:00] VITALS: BP 147/77
[2018-04-20] MEDS: PANTOPRAZOLE SOD 40 MG TABEC PO SCH (20:44)
[2018-04-20] MEDS: ATORVASTATIN 40 MG TAB PO SCH (20:45)
[2018-04-21] MEDS: ACETAMINOPHEN 325 MG TAB PO SCH ×4 (00:05→17:52)
[2018-04-21] MEDS: oxyCODONE HCL 5 MG CAP PO SCH ×4 (00:05→17:52)
[2018-04-21] MEDS: ceFAZolin(*) 1 GM VIAL 1 GM in NS(*) 0.9% 100 ML ADDVANT BAG 100 ML IV SCH ×3 (05:04→20:51)
[2018-04-21] MEDS: NS(*) 0.9% 500 ML BAG 500 ML IV PRN (05:05)
[2018-04-21 08:00] VITALS: BP 125/62
[2018-04-21] MEDS: ENOXAPARIN 100 MG/ML SYR SC SCH ×2 (08:42→20:53)
[2018-04-21] MEDS: guaiFENesin 600 MG TABCR PO SCH ×2 (08:42→20:51)
[2018-04-21] MEDS: ASPIRIN 81 MG CHEW PO SCH (08:42)
[2018-04-21] MEDS: METOPROLOL SUCC XL 25 MG TABCR PO SCH (08:42)
[2018-04-21] MEDS: DULoxetine HCL 30 MG CAPCR PO SCH (08:42)
[2018-04-21] MEDS: GABAPENTIN 300 MG CAP PO SCH ×3 (08:42→20:51)
[2018-04-21] MEDS: INSULIN GLARGINE 100 U/ML 3 ML PEN SUBQ SCH ×2 (08:43→20:52)
[2018-04-21] MEDS: MAGNESIUM OXIDE 400 MG TAB PO SCH (08:43)
[2018-04-21] MEDS: FUROSEMIDE 40 MG TAB PO SCH (08:43)
[2018-04-21] MEDS: INSULIN ASPART 100 U/ML 3 ML PEN SUBQ PRN ×3 (08:44→20:53)
[2018-04-21] MEDS: INSULIN ASPART 100 U/ML 3 ML PEN SUBQ SCH ×3 (08:44→17:54)
[2018-04-21] MEDS: TRIAMCINOLONE ACE 0.1% CR 80GM TP SCH ×2 (10:00→20:51)
[2018-04-21] MEDS: NYSTATIN 100,000 U/GM PWD 15GM TP SCH ×2 (10:00→20:51)
[2018-04-21 16:00] VITALS: BP 121/76
[2018-04-21] MEDS: PANTOPRAZOLE SOD 40 MG TABEC PO SCH (20:51)
[2018-04-21] MEDS: ATORVASTATIN 40 MG TAB PO SCH (20:51)
[2018-04-22] MEDS: ACETAMINOPHEN 325 MG TAB PO SCH ×4 (00:01→17:58)
[2018-04-22] MEDS: oxyCODONE HCL 5 MG CAP PO SCH ×5 (00:01→23:59)
[2018-04-22] MEDS: ceFAZolin(*) 1 GM VIAL 1 GM in NS(*) 0.9% 100 ML ADDVANT BAG 100 ML IV SCH ×3 (05:34→21:05)
[2018-04-22] MEDS: INSULIN ASPART 100 U/ML 3 ML PEN SUBQ SCH ×3 (07:39→17:46)
[2018-04-22 07:50] VITALS: BP 119/76
[2018-04-22] MEDS: guaiFENesin 600 MG TABCR PO SCH ×2 (09:31→21:06)
[2018-04-22] MEDS: FUROSEMIDE 40 MG TAB PO SCH (09:31)
[2018-04-22] MEDS: DULoxetine HCL 30 MG CAPCR PO SCH (09:31)
[2018-04-22] MEDS: ASPIRIN 81 MG CHEW PO SCH (09:31)
[2018-04-22] MEDS: MAGNESIUM OXIDE 400 MG TAB PO SCH (09:31)
[2018-04-22] MEDS: METOPROLOL SUCC XL 25 MG TABCR PO SCH (09:31)
[2018-04-22] MEDS: GABAPENTIN 300 MG CAP PO SCH ×3 (09:31→21:06)
[2018-04-22] MEDS: ENOXAPARIN 100 MG/ML SYR SC SCH ×2 (09:32→21:06)
[2018-04-22] MEDS: NYSTATIN 100,000 U/GM PWD 15GM TP SCH ×2 (09:32→21:04)
[2018-04-22] MEDS: TRIAMCINOLONE ACE 0.1% CR 80GM TP SCH ×2 (09:32→21:04)
[2018-04-22] MEDS: INSULIN GLARGINE 100 U/ML 3 ML PEN SUBQ SCH ×2 (09:33→21:08)
[2018-04-22 21:05] VITALS: BP 121/74
[2018-04-22] MEDS: PANTOPRAZOLE SOD 40 MG TABEC PO SCH (21:05)
[2018-04-22] MEDS: ATORVASTATIN 40 MG TAB PO SCH (21:06)
[2018-04-22] MEDS: INSULIN ASPART 100 U/ML 3 ML PEN SUBQ PRN (21:07)
[2018-04-23] MEDS: traZODone HCL 50 MG TAB PO PRN
[2018-04-23] MEDS: ceFAZolin(*) 1 GM VIAL 1 GM in NS(*) 0.9% 100 ML ADDVANT BAG 100 ML IV SCH ×3 (05:36→20:49)
[2018-04-23] MEDS: ACETAMINOPHEN 325 MG TAB PO SCH ×4 (06:07→18:05)
[2018-04-23] MEDS: oxyCODONE HCL 5 MG CAP PO SCH ×3 (06:08→18:06)
[2018-04-23] MEDS: INSULIN ASPART 100 U/ML 3 ML PEN SUBQ SCH ×3 (07:49→17:38)
[2018-04-23 07:50] VITALS: BP 103/58
[2018-04-23] MEDS: ASPIRIN 81 MG CHEW PO SCH (08:56)
[2018-04-23] MEDS: MAGNESIUM OXIDE 400 MG TAB PO SCH (08:56)
[2018-04-23] MEDS: METOPROLOL SUCC XL 25 MG TABCR PO SCH (08:56)
[2018-04-23] MEDS: GABAPENTIN 300 MG CAP PO SCH ×3 (08:56→20:50)
[2018-04-23] MEDS: guaiFENesin 600 MG TABCR PO SCH ×2 (08:56→20:50)
[2018-04-23] MEDS: NYSTATIN 100,000 U/GM PWD 15GM TP SCH ×2 (08:56→20:49)
[2018-04-23] MEDS: TRIAMCINOLONE ACE 0.1% CR 80GM TP SCH ×2 (08:56→20:50)
[2018-04-23] MEDS: ENOXAPARIN 100 MG/ML SYR SC SCH ×2 (08:57→20:51)
[2018-04-23] MEDS: FUROSEMIDE 40 MG TAB PO SCH (08:57)
[2018-04-23] MEDS: DULoxetine HCL 30 MG CAPCR PO SCH (08:57)
[2018-04-23] MEDS: INSULIN GLARGINE 100 U/ML 3 ML PEN SUBQ SCH ×2 (08:58→20:51)
[2018-04-23] MEDS ORDERED: WATER STERILE 10 ML VIAL IVP PRN (15:15)
--- NOTE | 2018-04-23 16:39 | Medical Nutrition Therapy ---
Nutrition Anthropometrics Height (Inches): 67.00 Height (Calculated Centimeters: 170.602768 Weight (Pounds): 329 Weight (Calculated Kilograms): 149.544 BMI: 53 Delfino Nutrition Score: Probably Inadequate Delfino Nutrition Risk Score: 12 Dietary Referral Nutrition Risk Factors: Special Diet Nutrition Risk Comment: Diabetic Physical Findings Physical Appearance: Morbidly Obese 40+ (BMI 52.5) Skin Appearance Skin Appearance: Edema Edema Location Modifier: Left Edema Location: Lower Extremity Type of Edema: Degree of Edema: 1+ Gastrointestinal Symptoms GI Symtoms: Tube Present: Bowel Sounds: Recent Bowel Pattern: Colostomy Stool Characteristics: Nutritional Diagnosis Nutritional Risk Acuity 2: Abcess/Non-Healing Wound Nutritional Risk Acuity 3: ST I/II Pressure Ulcer Nutritional Risk Acuity 4: Good Appetite Past Medical History: hx abdominal surgery, colostomy, Type IIDM, Indwelling catheter, Frequent UTI, Spina Bifida, GERD, THOMAS, Neurogenic bladder, Syncope, Dizziness, pulmonary embolus, deep venous thrombosis, small bowel obstruction, Decubitus ulcer, CAD, hypomagnesemia, Candidal intertrigo Nutritional Acuity: 2-Moderate Nutrition Diagnosis: Inappropriate Carb Intake Nutrition Etiology: Physiological Causes Nutrition Problem/Etiology/Sym: Inappropriate carb intake related to physiological causes as evidence by elevated whole blood glucose level of 277. Energy Requirement: 2275 ([place] [place] Adj BMI >27.5) Protein Requirement: 152 (1g/kg) Fluid Requirement: 3040 (20ml/kg) Diet Type: Diet as Tolerated JERRY/REG Nutrition Intervention: Cont diet as ordered, Encourage intake, HS snack Drug: Diuretics Diet Comment To RSA: 6OZ TO 8OZ OF MEAT (DOUBLE PORTIONS) Nutrition Monitoring & Eval RD Patient Assessment Time: [address] Assessment Type: RD Re-Assessment Patient Nutrition Acuity: 2-Moderate Follow Up Date: Apr 24, 2018 Nutritional Comment: 04/04 Pt was transferred from Med/Surg to [facility] with leg abscess. Pts diet has changed from ADA 2200 calories restriction to a regular diet. Pt is allowed to have 6oz-8oz 9oz (double portion) per meal. Pt has eaten 100% of his breakfast on ECF. Pt has had a 30# wt gain since admission. Pt wt was 305 and is now 335. Observed pt breakfast and found pt consumed about 3000mg of Na from romero, ham and cottage cheese. Pt has +2 edema in both LE/feet. Discourage high Na intake. Pt continues to have elevated whole blood glucose from 198-128. No other labs or reports reported at this time. Will continue to monitor pt progress and encourage intake. -MT 04/09 Pt continues regular diet, consuming 100% large portion meals. Pt has also been ordering a pitcher of ice tea. Pt's blood glucose have increased since last week. This morning at 7:21AM whole blood glucose was (277). Pt will continue to receive antibiotics through PICC line for the next 6 weeks, along with antibiotics give PO. Hypomagnesemia has been resolved. will continue to monitor pt progress and encourage intake. -MT 04/16 Pt eating 100% of regular diet with large portions. Alb cont low at 2.4. Will cont to offer double meat portions and encourage high protein and lower CHO intake. BG cont elevated 200-300 however BG today have improved. Will cont to monitor and encourage intake. BK 04/19 Pt d/caleb from warfarin. Will provide high Vit K foods upon pt request. BK 04/23 Pt. reported to be eating regular diet, 100% large portion sizes. Blood glucose erratic, ranging from 119-397 over past 3 days. No other new labs or nutritionally significant meds as of today. Will continue to monitor. EMMA CLEMENTS Apr 23, 2018 16:19
[2018-04-23 17:20] VITALS: BP 138/73
[2018-04-23] MEDS: PANTOPRAZOLE SOD 40 MG TABEC PO SCH (20:50)
[2018-04-23] MEDS: ATORVASTATIN 40 MG TAB PO SCH (20:50)
[2018-04-23] MEDS: INSULIN ASPART 100 U/ML 3 ML PEN SUBQ PRN (20:52)
[2018-04-24] MEDS: ACETAMINOPHEN 325 MG TAB PO SCH ×4 (00:03→18:17)
[2018-04-24] MEDS: oxyCODONE HCL 5 MG CAP PO SCH ×4 (00:03→18:18)
[2018-04-24] MEDS: traZODone HCL 50 MG TAB PO PRN (00:03)
[2018-04-24] MEDS: ceFAZolin(*) 1 GM VIAL 1 GM in NS(*) 0.9% 100 ML ADDVANT BAG 100 ML IV SCH ×3 (05:37→20:45)
[2018-04-24 07:45] VITALS: BP 119/70
[2018-04-24] MEDS: INSULIN ASPART 100 U/ML 3 ML PEN SUBQ SCH ×3 (07:53→17:03)
[2018-04-24] MEDS: INSULIN ASPART 100 U/ML 3 ML PEN SUBQ PRN ×3 (07:54→17:04)
--- NOTE | 2018-04-24 08:56 | Medical Nutrition Therapy ---
Nutrition Anthropometrics Height (Inches): 67.00 Height (Calculated Centimeters: 170.491345 Weight (Pounds): 327 Weight (Calculated Kilograms): 148.688 BMI: 53 Delfino Nutrition Score: Probably Inadequate Delfino Nutrition Risk Score: 12 Dietary Referral Nutrition Risk Factors: Special Diet Nutrition Risk Comment: Diabetic Nutritional Diagnosis Nutritional Risk Acuity 2: Abcess/Non-Healing Wound Nutritional Risk Acuity 3: ST I/II Pressure Ulcer Nutritional Risk Acuity 4: Good Appetite Past Medical History: hx abdominal surgery, colostomy, Type IIDM, Indwelling catheter, Frequent UTI, Spina Bifida, GERD, THOMAS, Neurogenic bladder, Syncope, Dizziness, pulmonary embolus, deep venous thrombosis, small bowel obstruction, Decubitus ulcer, CAD, hypomagnesemia, Candidal intertrigo Nutritional Acuity: 2-Moderate Nutrition Diagnosis: Inappropriate Carb Intake Nutrition Etiology: Physiological Causes Nutrition Problem/Etiology/Sym: Inappropriate carb intake related to physiological causes as evidence by elevated whole blood glucose level of 277. Energy Requirement: 2275 ([place] Adj BMI >27.5) Protein Requirement: 152 (1g/kg) Fluid Requirement: 3040 (20ml/kg) Diet Type: Diet as Tolerated JERRY/REG Nutrition Intervention: Cont diet as ordered, Encourage intake, HS snack Drug: Diuretics Diet Comment To RSA: 6OZ TO 8OZ OF MEAT (DOUBLE PORTIONS) Nutrition Monitoring & Eval RD Patient Assessment Time: [address] Assessment Type: RD Re-Assessment Patient Nutrition Acuity: 2-Moderate Follow Up Date: May 01, 2018 Nutritional Comment: 04/04 Pt was transferred from Med/Surg to [facility] with leg abscess. Pts diet has changed from ADA 2200 calories restriction to a regular diet. Pt is allowed to have 6oz-8oz 9oz (double portion) per meal. Pt has eaten 100% of his breakfast on ECF. Pt has had a 30# wt gain since admission. Pt wt was 305 and is now 335. Observed pt breakfast and found pt consumed about 3000mg of Na from romero, ham and cottage cheese. Pt has +2 edema in both LE/feet. Discourage high Na intake. Pt continues to have elevated whole blood glucose from 198-128. No other labs or reports reported at this time. Will continue to monitor pt progress and encourage intake. -KY 04/09 Pt continues regular diet, consuming 100% large portion meals. Pt has also been ordering a pitcher of ice tea. Pt's blood glucose have increased since last week. This morning at 7:21AM whole blood glucose was (277). Pt will continue to receive antibiotics through PICC line for the next 6 weeks, along with antibiotics give PO. Hypomagnesemia has been resolved. will continue to monitor pt progress and encourage intake. -MT 04/16 Pt eating 100% of regular diet with large portions. Alb cont low at 2.4. Will cont to offer double meat portions and encourage high protein and lower CHO intake. BG cont elevated 200-300 however BG today have improved. Will cont to monitor and encourage intake. BK 04/19 Pt d/caleb from warfarin. Will provide high Vit K foods upon pt request. MACY 04/23 Pt. reported to be eating regular diet, 100% large portion sizes. Blood glucose erratic, ranging from 119-397 over past 3 days. No other new labs or nutritionally significant meds as of today. Will continue to monitor. JOCELYN OLVERA Apr 24, 2018 08:56
[2018-04-24] MEDS: FUROSEMIDE 40 MG TAB PO SCH (09:21)
[2018-04-24] MEDS: TRIAMCINOLONE ACE 0.1% CR 80GM TP SCH ×2 (09:21→20:43)
[2018-04-24] MEDS: NYSTATIN 100,000 U/GM PWD 15GM TP SCH ×2 (09:21→20:44)
[2018-04-24] MEDS: MAGNESIUM OXIDE 400 MG TAB PO SCH (09:22)
[2018-04-24] MEDS: ENOXAPARIN 100 MG/ML SYR SC SCH ×2 (09:22→20:44)
[2018-04-24] MEDS: guaiFENesin 600 MG TABCR PO SCH ×2 (09:22→20:44)
[2018-04-24] MEDS: GABAPENTIN 300 MG CAP PO SCH ×3 (09:22→20:44)
[2018-04-24] MEDS: DULoxetine HCL 30 MG CAPCR PO SCH (09:22)
[2018-04-24] MEDS: METOPROLOL SUCC XL 25 MG TABCR PO SCH (09:22)
[2018-04-24] MEDS: ASPIRIN 81 MG CHEW PO SCH (09:23)
[2018-04-24] MEDS: INSULIN GLARGINE 100 U/ML 3 ML PEN SUBQ SCH ×2 (09:23→20:44)
[2018-04-24 18:26] VITALS: BP 122/74
[2018-04-24] MEDS: PANTOPRAZOLE SOD 40 MG TABEC PO SCH (20:44)
[2018-04-24] MEDS: ATORVASTATIN 40 MG TAB PO SCH (20:44)
[2018-04-25] MEDS: ACETAMINOPHEN 325 MG TAB PO SCH ×4 (00:04→18:16)
[2018-04-25] MEDS: oxyCODONE HCL 5 MG CAP PO SCH ×4 (00:04→18:16)
[2018-04-25] MEDS: traZODone HCL 50 MG TAB PO PRN (00:27)
[2018-04-25] MEDS: ceFAZolin(*) 1 GM VIAL 1 GM in NS(*) 0.9% 100 ML ADDVANT BAG 100 ML IV SCH ×3 (05:41→20:39)
[2018-04-25] MEDS: NS(*) 0.9% 500 ML BAG 500 ML IV PRN (06:20)
[2018-04-25 06:27] LABS: PLATELET COUNT, AUTOMATED 439 K/uL (150-450)
[2018-04-25 08:00] VITALS: BP 124/60
[2018-04-25] MEDS: ENOXAPARIN 100 MG/ML SYR SC SCH ×2 (08:47→20:40)
[2018-04-25] MEDS: INSULIN GLARGINE 100 U/ML 3 ML PEN SUBQ SCH ×2 (08:47→20:39)
[2018-04-25] MEDS: INSULIN ASPART 100 U/ML 3 ML PEN SUBQ SCH ×3 (08:48→16:50)
[2018-04-25] MEDS: INSULIN ASPART 100 U/ML 3 ML PEN SUBQ PRN ×2 (08:49→12:28)
[2018-04-25] MEDS: TRIAMCINOLONE ACE 0.1% CR 80GM TP SCH ×2 (08:49→20:41)
[2018-04-25] MEDS: NYSTATIN 100,000 U/GM PWD 15GM TP SCH ×2 (08:49→20:41)
[2018-04-25] MEDS: DULoxetine HCL 30 MG CAPCR PO SCH (08:58)
[2018-04-25] MEDS: MAGNESIUM OXIDE 400 MG TAB PO SCH (08:58)
[2018-04-25] MEDS: METOPROLOL SUCC XL 25 MG TABCR PO SCH (08:58)
[2018-04-25] MEDS: GABAPENTIN 300 MG CAP PO SCH ×3 (08:58→20:40)
[2018-04-25] MEDS: ASPIRIN 81 MG CHEW PO SCH (08:58)
[2018-04-25] MEDS: guaiFENesin 600 MG TABCR PO SCH ×2 (08:58→20:40)
[2018-04-25] MEDS: FUROSEMIDE 40 MG TAB PO SCH (08:58)
[2018-04-25 15:57] VITALS: BP 130/64
[2018-04-25] MEDS ORDERED: WARFARIN SOD 5 MG TAB PO ONE (16:15)
--- NOTE | 2018-04-25 16:19 | Hospitalist Progress Note ---
Subjective Progress Notes Subjective Feeling better overall. His back is sweating but he thinks it is due to increased heat. Physical Exam Vital Signs Date Time Temp Pulse Resp B/P (MAP) Pulse Ox O2 Delivery O2 Flow Rate FiO2 04/25/18 15:57 98.8 92 18 130/64 (86) 91 Nasal Cannula 2.5 Intake and Output 04/26/18 06:59 Intake Total 1330 ml Output Total 1900 ml Balance -570 ml Intake Oral 1200 ml IV Total 130 ml Output Urine Total 1900 ml # Bowel Movements 2 General Appearance: Alert, Awake, No Acute Distress, Afebrile Cardiovascular: Regular Rate and Rhythm Respiratory: Clear to Auscultation GI: Soft and Non-Tender, Other (Ostomy bag in place L abdomen.) Extremities: Warm, Perfused Psych: Appropriate Mood & Affect Result Diagram: 04/25/1860404/25/18604 Assessment and Plan Problems: (1) Chest pain Status: Acute Assessment & Plan: Called on 04/05 to see the patient due to chest pain. 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 He had also had a cough. CXR on admission showed bronchial thickening. His EKG was unchanged. Troponin was < 0.12. He was felt to have bronchitis which was most likely viral. O2 requirements were unchanged. Continue to monitor. Mucinex was added for cough. Feeling better. (2) Sepsis due to Staphylococcus aureus Status: Acute Assessment & Plan: He did present with fever. 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 He has been told he is not a candidate to have the shunt removed due to very high surgical risk. He was started on empiric treatment with Ertapenem and tigecycline, this admission. His cultures have grown the same strain of methicillin sensitive Staphylococcus that he has had in the past. He is now on treatment with Ancef. Repeat blood cultures are negative, he is afebrile and his WBC is in normal range. Dr. Calvert (the patient's ID physician) recommends 6 weeks of IV antibiotics, then chronic oral antibiotics. Echo was done. No evidence of endocarditis EF is normal. He had a PICC line placed on . He was transferred to [facility] for IV antibiotics. He will finish his course on May 09. (3) UTI (urinary tract infection) Assessment & Plan: He was started on empiric treatment with ertapenem. 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 He was treated with several doses of fluconazole. The ertapenem and fluconazole have now been stopped. No further treatment unless he becomes symptomatic. (4) Type 2 diabetes mellitus Status: Chronic Assessment & Plan: He has been on Lantus 75units AM and 65units PM, but also does not follow diet at home and previously has had problems with hypoglycemia when on ADA diet in hospital. His Lantus doses were reduced and the evening dose was discontinued initially. His sugars remained high. He was placed back on bid Lantus dosing and Humalog was added before meals. (5) Hx of deep venous thrombosis Status: Chronic Assessment & Plan: He is on chronic treatment with warfarin, but was subtherapeutic at admission. He was placed on Lovenox and his warfarin dose was increased. His INR then thuan to over therapeutic range and the warfarin was placed on hold. He then developed anemia and had heme + stool. Warfarin was held and his dark stool improved and his hemoglobin increased. He has had multiple clots (leg, arm, PEs, R atrium) so will restart him on Lovenox and monitor for signs of bleeding. If none, restart warfarin. He has hx of GI bleed and had GI evaluation with Dr. Castillo several years ago and the patient states, "nothing was found". May need to get records. He has had no further evidence of bleeding. Hemoglobin has remained stable. Will restart Coumadin and monitor. (6) Candidal intertrigo Status: Chronic Assessment & Plan: He has been treated with Nystatin powder. (7) Decubitus ulcer Status: Chronic Assessment & Plan: A wound care consult is ongoing. (8) Chronic pain Status: Chronic Assessment & Plan: He is on chronic treatment with oxycodone. He takes 4 tablets daily at home. He wants to increase to 6 tablets daily here. Will have him continue q 6 oxycodone and alternate with Tylenol. (9) Hypomagnesemia Status: Resolved Assessment & Plan: He has received several doses of supplemental magnesium. (10) Cough Status: Chronic Assessment & Plan: See above. The patient has had cough and chest pain for about a week and a half. CXR shows bronchial thickening. His O2 requirements are at baseline. Most likely he has bronchitis. Will monitor. Add Mucinex. Central Venous Access Medical Necessity for Access: IV Access, Medication Administration Time Spent on Plan of Care: < 30 min JOHN DUQUE MD Apr 25, 2018 16:19
[2018-04-25] MEDS: PANTOPRAZOLE SOD 40 MG TABEC PO SCH (20:40)
[2018-04-25] MEDS: ATORVASTATIN 40 MG TAB PO SCH (20:40)
[2018-04-26] MEDS: ACETAMINOPHEN 325 MG TAB PO SCH ×5 (00:01→23:59)
[2018-04-26] MEDS: traZODone HCL 50 MG TAB PO PRN (00:34)
[2018-04-26] MEDS: ceFAZolin(*) 1 GM VIAL 1 GM in NS(*) 0.9% 100 ML ADDVANT BAG 100 ML IV SCH ×3 (05:42→20:18)
[2018-04-26] MEDS: oxyCODONE HCL 5 MG CAP PO SCH ×5 (05:54→23:59)
[2018-04-26 07:30] VITALS: BP 139/68
[2018-04-26] MEDS: INSULIN GLARGINE 100 U/ML 3 ML PEN SUBQ SCH ×2 (08:33→20:18)
[2018-04-26] MEDS: ENOXAPARIN 100 MG/ML SYR SC SCH ×2 (08:34→20:22)
[2018-04-26] MEDS: INSULIN ASPART 100 U/ML 3 ML PEN SUBQ SCH ×3 (08:34→16:53)
[2018-04-26] MEDS: TRIAMCINOLONE ACE 0.1% CR 80GM TP SCH ×2 (08:38→20:19)
[2018-04-26] MEDS: FUROSEMIDE 40 MG TAB PO SCH (08:39)
[2018-04-26] MEDS: DULoxetine HCL 30 MG CAPCR PO SCH (08:39)
[2018-04-26] MEDS: ASPIRIN 81 MG CHEW PO SCH (08:39)
[2018-04-26] MEDS: NYSTATIN 100,000 U/GM PWD 15GM TP SCH ×2 (08:39→20:19)
[2018-04-26] MEDS: MAGNESIUM OXIDE 400 MG TAB PO SCH (08:39)
[2018-04-26] MEDS: GABAPENTIN 300 MG CAP PO SCH ×3 (08:39→20:19)
[2018-04-26] MEDS: guaiFENesin 600 MG TABCR PO SCH ×2 (08:39→20:19)
[2018-04-26] MEDS: METOPROLOL SUCC XL 25 MG TABCR PO SCH (08:39)
[2018-04-26 12:38] VITALS: BP 132/60
[2018-04-26] MEDS: INSULIN ASPART 100 U/ML 3 ML PEN SUBQ PRN ×2 (12:44→16:53)
[2018-04-26] MEDS: WARFARIN SOD 5 MG TAB PO SCH (13:36)
[2018-04-26 16:30] VITALS: BP 126/64
[2018-04-26] MEDS: ATORVASTATIN 40 MG TAB PO SCH (20:18)
[2018-04-26] MEDS: PANTOPRAZOLE SOD 40 MG TABEC PO SCH (20:19)
[2018-04-27] MEDS: ceFAZolin(*) 1 GM VIAL 1 GM in NS(*) 0.9% 100 ML ADDVANT BAG 100 ML IV SCH ×3 (05:13→21:20)
[2018-04-27] MEDS: oxyCODONE HCL 5 MG CAP PO SCH ×3 (05:39→18:08)
[2018-04-27] MEDS: ACETAMINOPHEN 325 MG TAB PO SCH ×3 (05:40→18:09)
[2018-04-27 06:17] LABS: INR 1.08
[2018-04-27 07:45] VITALS: BP 126/67
[2018-04-27] MEDS: ENOXAPARIN 100 MG/ML SYR SC SCH ×2 (08:36→21:16)
[2018-04-27] MEDS: INSULIN GLARGINE 100 U/ML 3 ML PEN SUBQ SCH ×2 (08:37→21:17)
[2018-04-27] MEDS: INSULIN ASPART 100 U/ML 3 ML PEN SUBQ SCH ×3 (08:37→16:50)
[2018-04-27] MEDS: INSULIN ASPART 100 U/ML 3 ML PEN SUBQ PRN ×4 (08:38→21:33)
[2018-04-27] MEDS: NYSTATIN 100,000 U/GM PWD 15GM TP SCH ×2 (08:44→21:16)
[2018-04-27] MEDS: DULoxetine HCL 30 MG CAPCR PO SCH (08:44)
[2018-04-27] MEDS: FUROSEMIDE 40 MG TAB PO SCH (08:44)
[2018-04-27] MEDS: MAGNESIUM OXIDE 400 MG TAB PO SCH (08:44)
[2018-04-27] MEDS: TRIAMCINOLONE ACE 0.1% CR 80GM TP SCH ×2 (08:44→21:15)
[2018-04-27] MEDS: guaiFENesin 600 MG TABCR PO SCH ×2 (08:44→21:13)
[2018-04-27] MEDS: METOPROLOL SUCC XL 25 MG TABCR PO SCH (08:44)
[2018-04-27] MEDS: ASPIRIN 81 MG CHEW PO SCH (08:44)
[2018-04-27] MEDS: GABAPENTIN 300 MG CAP PO SCH ×3 (08:44→21:13)
[2018-04-27] MEDS: WARFARIN SOD 5 MG TAB PO SCH (14:41)
[2018-04-27 15:39] VITALS: BP 113/76
[2018-04-27] MEDS: ATORVASTATIN 40 MG TAB PO SCH (21:13)
[2018-04-27] MEDS: PANTOPRAZOLE SOD 40 MG TABEC PO SCH (21:14)
[2018-04-28] MEDS: ACETAMINOPHEN 325 MG TAB PO SCH ×4 (00:07→18:03)
[2018-04-28] MEDS: oxyCODONE HCL 5 MG CAP PO SCH ×4 (00:07→18:02)
[2018-04-28] MEDS: ceFAZolin(*) 1 GM VIAL 1 GM in NS(*) 0.9% 100 ML ADDVANT BAG 100 ML IV SCH ×3 (05:39→20:34)
[2018-04-28 07:56] VITALS: BP 117/77
[2018-04-28] MEDS: INSULIN GLARGINE 100 U/ML 3 ML PEN SUBQ SCH ×2 (08:27→20:35)
[2018-04-28] MEDS: INSULIN ASPART 100 U/ML 3 ML PEN SUBQ SCH ×3 (08:27→17:39)
[2018-04-28] MEDS: ENOXAPARIN 100 MG/ML SYR SC SCH ×2 (08:27→20:34)
[2018-04-28] MEDS: NYSTATIN 100,000 U/GM PWD 15GM TP SCH ×2 (08:28→20:33)
[2018-04-28] MEDS: TRIAMCINOLONE ACE 0.1% CR 80GM TP SCH ×2 (08:28→20:33)
[2018-04-28] MEDS: METOPROLOL SUCC XL 25 MG TABCR PO SCH (08:36)
[2018-04-28] MEDS: GABAPENTIN 300 MG CAP PO SCH ×3 (08:36→20:33)
[2018-04-28] MEDS: MAGNESIUM OXIDE 400 MG TAB PO SCH (08:36)
[2018-04-28] MEDS: FUROSEMIDE 40 MG TAB PO SCH (08:36)
[2018-04-28] MEDS: guaiFENesin 600 MG TABCR PO SCH ×2 (08:36→20:34)
[2018-04-28] MEDS: ASPIRIN 81 MG CHEW PO SCH (08:36)
[2018-04-28] MEDS: DULoxetine HCL 30 MG CAPCR PO SCH (08:37)
[2018-04-28] MEDS: WARFARIN SOD 5 MG TAB PO SCH (13:23)
[2018-04-28 16:06] VITALS: BP 119/56
[2018-04-28] MEDS: INSULIN ASPART 100 U/ML 3 ML PEN SUBQ PRN ×2 (17:39→20:36)
[2018-04-28] MEDS: ATORVASTATIN 40 MG TAB PO SCH (20:34)
[2018-04-28] MEDS: PANTOPRAZOLE SOD 40 MG TABEC PO SCH (20:34)
[2018-04-29] MEDS: ACETAMINOPHEN 325 MG TAB PO SCH ×4 (00:02→17:59)
[2018-04-29] MEDS: traZODone HCL 50 MG TAB PO PRN (00:02)
[2018-04-29] MEDS: oxyCODONE HCL 5 MG CAP PO SCH ×4 (00:03→18:00)
[2018-04-29] MEDS: ceFAZolin(*) 1 GM VIAL 1 GM in NS(*) 0.9% 100 ML ADDVANT BAG 100 ML IV SCH ×3 (05:23→20:52)
[2018-04-29 06:12] LABS: INR 1.41
[2018-04-29 07:55] VITALS: BP 126/80
[2018-04-29] MEDS: INSULIN ASPART 100 U/ML 3 ML PEN SUBQ PRN ×4 (07:56→20:51)
[2018-04-29] MEDS: INSULIN ASPART 100 U/ML 3 ML PEN SUBQ SCH ×3 (07:56→16:42)
[2018-04-29] MEDS: NYSTATIN 100,000 U/GM PWD 15GM TP SCH ×2 (08:18→20:52)
[2018-04-29] MEDS: MAGNESIUM OXIDE 400 MG TAB PO SCH (08:18)
[2018-04-29] MEDS: TRIAMCINOLONE ACE 0.1% CR 80GM TP SCH ×2 (08:18→20:52)
[2018-04-29] MEDS: FUROSEMIDE 40 MG TAB PO SCH (08:18)
[2018-04-29] MEDS: GABAPENTIN 300 MG CAP PO SCH ×3 (08:18→20:53)
[2018-04-29] MEDS: DULoxetine HCL 30 MG CAPCR PO SCH (08:18)
[2018-04-29] MEDS: METOPROLOL SUCC XL 25 MG TABCR PO SCH (08:18)
[2018-04-29] MEDS: INSULIN GLARGINE 100 U/ML 3 ML PEN SUBQ SCH ×2 (08:19→20:51)
[2018-04-29] MEDS: ENOXAPARIN 100 MG/ML SYR SC SCH ×2 (08:19→20:53)
[2018-04-29] MEDS: guaiFENesin 600 MG TABCR PO SCH ×2 (08:19→20:53)
[2018-04-29] MEDS: ASPIRIN 81 MG CHEW PO SCH (08:19)
[2018-04-29] MEDS: WARFARIN SOD 5 MG TAB PO SCH (12:18)
[2018-04-29 16:35] VITALS: BP 105/68
[2018-04-29] MEDS: PANTOPRAZOLE SOD 40 MG TABEC PO SCH (20:53)
[2018-04-29] MEDS: ATORVASTATIN 40 MG TAB PO SCH (20:53)
[2018-04-30] MEDS: traZODone HCL 50 MG TAB PO PRN (00:04)
[2018-04-30] MEDS: oxyCODONE HCL 5 MG CAP PO SCH ×4 (00:04→18:01)
[2018-04-30] MEDS: ACETAMINOPHEN 325 MG TAB PO SCH ×4 (00:06→18:02)
[2018-04-30] MEDS: ceFAZolin(*) 1 GM VIAL 1 GM in NS(*) 0.9% 100 ML ADDVANT BAG 100 ML IV SCH ×3 (05:39→21:29)
[2018-04-30] MEDS: NS(*) 0.9% 500 ML BAG 500 ML IV PRN (05:39)
[2018-04-30 07:56] VITALS: BP 152/68
[2018-04-30] MEDS: INSULIN GLARGINE 100 U/ML 3 ML PEN SUBQ SCH ×2 (08:38→21:37)
[2018-04-30] MEDS: INSULIN ASPART 100 U/ML 3 ML PEN SUBQ SCH ×3 (08:38→16:52)
[2018-04-30] MEDS: NYSTATIN 100,000 U/GM PWD 15GM TP SCH ×2 (08:39→21:31)
[2018-04-30] MEDS: INSULIN ASPART 100 U/ML 3 ML PEN SUBQ PRN ×4 (08:39→21:40)
[2018-04-30] MEDS: TRIAMCINOLONE ACE 0.1% CR 80GM TP SCH ×2 (08:39→21:31)
[2018-04-30] MEDS: ENOXAPARIN 100 MG/ML SYR SC SCH ×2 (08:40→21:33)
[2018-04-30] MEDS: guaiFENesin 600 MG TABCR PO SCH ×2 (08:40→21:31)
[2018-04-30] MEDS: DULoxetine HCL 30 MG CAPCR PO SCH (08:40)
[2018-04-30] MEDS: GABAPENTIN 300 MG CAP PO SCH ×3 (08:40→21:31)
[2018-04-30] MEDS: MAGNESIUM OXIDE 400 MG TAB PO SCH (08:41)
[2018-04-30] MEDS: FUROSEMIDE 40 MG TAB PO SCH (08:41)
[2018-04-30] MEDS: METOPROLOL SUCC XL 25 MG TABCR PO SCH (08:41)
[2018-04-30] MEDS: ASPIRIN 81 MG CHEW PO SCH (08:41)
--- NOTE | 2018-04-30 09:20 | Medical Nutrition Therapy ---
Nutrition Anthropometrics Height (Inches): 67.00 Height (Calculated Centimeters: 170.335028 Weight (Pounds): 329 Weight (Calculated Kilograms): 149.277 BMI: 53 Delfino Nutrition Score: Adequate Delfino Nutrition Risk Score: 14 Dietary Referral Nutrition Risk Factors: Special Diet Nutrition Risk Comment: Diabetic Physical Findings Physical Appearance: Morbidly Obese 40+ (BMI 52.5) Skin Appearance Skin Appearance: Edema Edema Location Modifier: Both Edema Location: Foot Type of Edema: Degree of Edema: 1+ Gastrointestinal Symptoms GI Symtoms: Tube Present: Bowel Sounds: Recent Bowel Pattern: Colostomy Stool Characteristics: Nutritional Diagnosis Nutritional Risk Acuity 2: Blood Glucose > 300mg/dl, Abcess/Non-Healing Wound Nutritional Risk Acuity 3: ST I/II Pressure Ulcer Nutritional Risk Acuity 4: Good Appetite Past Medical History: hx abdominal surgery, colostomy, Type IIDM, Indwelling catheter, Frequent UTI, Spina Bifida, GERD, THOMAS, Neurogenic bladder, Syncope, Dizziness, pulmonary embolus, deep venous thrombosis, small bowel obstruction, Decubitus ulcer, CAD, hypomagnesemia, Candidal intertrigo Nutritional Acuity: 2-Moderate Nutrition Diagnosis: Inappropriate Carb Intake Nutrition Etiology: Physiological Causes Nutrition Problem/Etiology/Sym: Inappropriate carb intake related to physiological causes as evidence by elevated whole blood glucose level of 277. Energy Requirement: 2275 ([place] Adj BMI >27.5) Protein Requirement: 152 (1g/kg) Fluid Requirement: 3040 (20ml/kg) Diet Type: Diet as Tolerated JERRY/REG Nutrition Intervention: Cont diet as ordered, Encourage intake, HS snack Drug: Diuretics Diet Comment To RSA: 6OZ TO 8OZ OF MEAT (DOUBLE PORTIONS) Nutrition Monitoring & Eval Nutrition Goals: Eat 90-100% Meal Nutrition Follow-Up: Good Intake RD Patient Assessment Time: [address] Assessment Type: RD Re-Assessment Patient Nutrition Acuity: 2-Moderate Follow Up Date: May 08, 2018 Nutritional Comment: 04/04 Pt was transferred from Med/Surg to [facility] with leg abscess. Pts diet has changed from ADA 2200 calories restriction to a regular diet. Pt is allowed to have 6oz-8oz 9oz (double portion) per meal. Pt has eaten 100% of his breakfast on ECF. Pt has had a 30# wt gain since admission. Pt wt was 305 and is now 335. Observed pt breakfast and found pt consumed about 3000mg of Na from romero, ham and cottage cheese. Pt has +2 edema in both LE/feet. Discourage high Na intake. Pt continues to have elevated whole blood glucose from 198-128. No other labs or reports reported at this time. Will continue to monitor pt progress and encourage intake. -MT 04/09 Pt continues regular diet, consuming 100% large portion meals. Pt has also been ordering a pitcher of ice tea. Pt's blood glucose have increased since last week. This morning at 7:21AM whole blood glucose was (277). Pt will continue to receive antibiotics through PICC line for the next 6 weeks, along with antibiotics give PO. Hypomagnesemia has been resolved. will continue to monitor pt progress and encourage intake. -MT 04/16 Pt eating 100% of regular diet with large portions. Alb cont low at 2.4. Will cont to offer double meat portions and encourage high protein and lower CHO intake. BG cont elevated 200-300 however BG today have improved. Will cont to monitor and encourage intake. MACY 04/19 Pt d/caleb from warfarin. Will provide high Vit K foods upon pt request. MACY 04/23 Pt. reported to be eating regular diet, 100% large portion sizes. Blood glucose erratic, ranging from 119-397 over past 3 days. No other new labs or nutritionally significant meds as of today. Will continue to monitor. RB 04/30 Pt cont Regular diet with 100% intake of regular to large meals. Pt cont elevated BG ranging 147-369 this past week. Pt is on a regular diet to adjust his insulin with what he eats at home. Will cont to monitor and encourage healthy intake. JOCELYN CARTER Apr 30, 2018 09:20
[2018-04-30] MEDS: CALCIUM CARBONATE 500 MG CHEW PO PRN (10:28)
[2018-04-30] MEDS: WARFARIN SOD 5 MG TAB PO SCH (12:28)
[2018-04-30 15:40] VITALS: BP 119/68
[2018-04-30] MEDS: ONDANSETRON 4 MG/2 ML VIAL IVP PRN (21:29)
[2018-04-30] MEDS: ATORVASTATIN 40 MG TAB PO SCH (21:31)
[2018-04-30] MEDS: PANTOPRAZOLE SOD 40 MG TABEC PO SCH (21:31)
[2018-05-01] MEDS: ACETAMINOPHEN 325 MG TAB PO SCH ×4 (00:06→18:16)
[2018-05-01] MEDS: traZODone HCL 50 MG TAB PO PRN ×2 (00:06→22:02)
[2018-05-01] MEDS: oxyCODONE HCL 5 MG CAP PO SCH ×4 (00:06→18:16)
[2018-05-01] MEDS: ceFAZolin(*) 1 GM VIAL 1 GM in NS(*) 0.9% 100 ML ADDVANT BAG 100 ML IV SCH ×3 (05:40→20:29)
[2018-05-01 07:16] LABS: INR 1.6
[2018-05-01 07:20] VITALS: BP 124/65
[2018-05-01] MEDS: ENOXAPARIN 100 MG/ML SYR SC SCH ×2 (08:34→20:30)
[2018-05-01] MEDS: INSULIN GLARGINE 100 U/ML 3 ML PEN SUBQ SCH ×2 (08:35→20:47)
[2018-05-01] MEDS: INSULIN ASPART 100 U/ML 3 ML PEN SUBQ PRN ×2 (08:36→20:46)
[2018-05-01] MEDS: INSULIN ASPART 100 U/ML 3 ML PEN SUBQ SCH ×3 (08:36→16:59)
[2018-05-01] MEDS: GABAPENTIN 300 MG CAP PO SCH ×3 (08:41→20:39)
[2018-05-01] MEDS: guaiFENesin 600 MG TABCR PO SCH ×2 (08:41→20:39)
[2018-05-01] MEDS: FUROSEMIDE 40 MG TAB PO SCH (08:41)
[2018-05-01] MEDS: ASPIRIN 81 MG CHEW PO SCH (08:41)
[2018-05-01] MEDS: METOPROLOL SUCC XL 25 MG TABCR PO SCH (08:41)
[2018-05-01] MEDS: MAGNESIUM OXIDE 400 MG TAB PO SCH (08:41)
[2018-05-01] MEDS: DULoxetine HCL 30 MG CAPCR PO SCH (08:41)
[2018-05-01] MEDS: TRIAMCINOLONE ACE 0.1% CR 80GM TP SCH ×2 (08:42→20:46)
[2018-05-01] MEDS: NYSTATIN 100,000 U/GM PWD 15GM TP SCH ×2 (08:42→20:46)
[2018-05-01] MEDS: WARFARIN SOD 5 MG TAB PO SCH (13:18)
[2018-05-01 17:02] VITALS: BP 125/75
[2018-05-01] MEDS: PANTOPRAZOLE SOD 40 MG TABEC PO SCH (20:39)
[2018-05-01] MEDS: ATORVASTATIN 40 MG TAB PO SCH (20:39)
[2018-05-02] MEDS: oxyCODONE HCL 5 MG CAP PO SCH ×4 (00:14→18:14)
[2018-05-02] MEDS: ACETAMINOPHEN 325 MG TAB PO SCH ×4 (00:15→18:13)
[2018-05-02] MEDS: ceFAZolin(*) 1 GM VIAL 1 GM in NS(*) 0.9% 100 ML ADDVANT BAG 100 ML IV SCH ×3 (05:00→20:22)
[2018-05-02 07:45] VITALS: BP 132/66
[2018-05-02] MEDS: TRIAMCINOLONE ACE 0.1% CR 80GM TP SCH (08:34)
[2018-05-02] MEDS: guaiFENesin 600 MG TABCR PO SCH ×2 (08:35→20:21)
[2018-05-02] MEDS: ENOXAPARIN 100 MG/ML SYR SC SCH ×2 (08:35→20:20)
[2018-05-02] MEDS: DULoxetine HCL 30 MG CAPCR PO SCH (08:35)
[2018-05-02] MEDS: ONDANSETRON 4 MG/2 ML VIAL IVP PRN (08:35)
[2018-05-02] MEDS: INSULIN GLARGINE 100 U/ML 3 ML PEN SUBQ SCH ×2 (08:36→20:20)
[2018-05-02] MEDS: MAGNESIUM OXIDE 400 MG TAB PO SCH (08:36)
[2018-05-02] MEDS: METOPROLOL SUCC XL 25 MG TABCR PO SCH (08:36)
[2018-05-02] MEDS: FUROSEMIDE 40 MG TAB PO SCH (08:36)
[2018-05-02] MEDS: ASPIRIN 81 MG CHEW PO SCH (08:36)
[2018-05-02] MEDS: GABAPENTIN 300 MG CAP PO SCH ×3 (08:36→20:21)
[2018-05-02] MEDS: INSULIN ASPART 100 U/ML 3 ML PEN SUBQ PRN ×2 (08:37→20:21)
[2018-05-02] MEDS: INSULIN ASPART 100 U/ML 3 ML PEN SUBQ SCH ×3 (08:37→16:30)
[2018-05-02] MEDS: NYSTATIN 100,000 U/GM PWD 15GM TP SCH ×2 (08:47→20:21)
[2018-05-02] MEDS ORDERED: diphenhydrAMINE 25 MG CAP PO PRN (09:15)
--- NOTE | 2018-05-02 09:35 | Hospitalist Progress Note ---
Subjective Progress Notes Subjective The patient is feeling much better. Physical Exam Vital Signs Date Time Temp Pulse Resp B/P (MAP) Pulse Ox O2 Delivery O2 Flow Rate FiO2 05/02/18 07:45 98.3 12 132/66 (88) 91 Nasal Cannula 1.0 05/01/18 17:02 105 General Appearance: Alert, Awake, No Acute Distress, Afebrile Neuro: No Gross deficits (Stable changes associated with his spina bifida.) Eyes: PERRLA ENT: Moist Mucous Membranes Cardiovascular: Regular Rate and Rhythm, Other (Edema in LE improved.) Respiratory: Clear to Auscultation GI: Soft and Non-Tender Psych: Appropriate Mood & Affect Assessment and Plan Problems: (1) Chest pain Status: Acute Assessment & Plan: Called on 04/05 to see the patient due to chest pain. 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 He had also had a cough. CXR on admission showed bronchial thickening. His EKG was unchanged. Troponin was < 0.12. He was felt to have bronchitis which was most likely viral. O2 requirements were unchanged. Continue to monitor. Mucinex was added for cough. Feeling better. (2) Sepsis due to Staphylococcus aureus Status: Acute Assessment & Plan: He did present with fever. 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 He has been told he is not a candidate to have the shunt removed due to very high surgical risk. He was started on empiric treatment with Ertapenem and tigecycline, this admission. His cultures have grown the same strain of methicillin sensitive Staphylococcus that he has had in the past. He is now on treatment with Ancef. Repeat blood cultures are negative, he is afebrile and his WBC is in normal range. Dr. Calvert (the patient's ID physician) recommends 6 weeks of IV antibiotics, then chronic oral antibiotics. Echo was done. No evidence of endocarditis EF is normal. He had a PICC line placed on . He was transferred to [facility] for IV antibiotics. He will finish his course on May 09. (3) UTI (urinary tract infection) Assessment & Plan: He was started on empiric treatment with ertapenem. 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 He was treated with several doses of fluconazole. The ertapenem and fluconazole have now been stopped. No further treatment unless he becomes symptomatic. (4) Type 2 diabetes mellitus Status: Chronic Assessment & Plan: He has been on Lantus 75units AM and 65units PM, but also does not follow diet at home and previously has had problems with hypoglycemia when on ADA diet in hospital. His Lantus doses were reduced and the evening dose was discontinued initially. His sugars remained high. He was placed back on bid Lantus dosing and Humalog was added before meals. His sugars have improved significantly. (5) Hx of deep venous thrombosis Status: Chronic Assessment & Plan: He is on chronic treatment with warfarin, but was subtherapeutic at admission. He was placed on Lovenox and his warfarin dose was increased. His INR then thuan to over therapeutic range and the warfarin was placed on hold. He then developed anemia and had heme + stool. Warfarin was held and his dark stool improved and his hemoglobin increased. He has had multiple clots (leg, arm, PEs, R atrium) so will restart him on Lovenox and monitor for signs of bleeding. If none, restart warfarin. He has hx of GI bleed and had GI evaluation with Dr. Castillo several years ago and the patient states, "nothing was found". May need to get records. He has had no further evidence of bleeding. Hemoglobin has remained stable. Will restart Coumadin and monitor. (6) ANEMIA, UNSPECIFIED Assessment & Plan: See above. May be due to anticoagulation. Coumadin has been restarted. No evidence of blood loss in GI tract thus far. CBC ordered today. (7) Candidal intertrigo Status: Chronic Assessment & Plan: He has been treated with Nystatin powder. (8) Decubitus ulcer Status: Chronic Assessment & Plan: A wound care consult is ongoing. (9) Chronic pain Status: Chronic Assessment & Plan: He is on chronic treatment with oxycodone. He takes 4 tablets daily at home. He wants to increase to 6 tablets daily here. Will have him continue q 6 oxycodone and alternate with Tylenol. (10) Hypomagnesemia Status: Resolved Assessment & Plan: He has received several doses of supplemental magnesium. (11) Cough Status: Chronic Assessment & Plan: See above. The patient has had cough and chest pain for about a week and a half. CXR shows bronchial thickening. His O2 requirements are at baseline. Most likely he has bronchitis. Will monitor. Add Mucinex. (12) Dyssomnia Status: Chronic Assessment & Plan: Not sleeping well on Trazodone. Will add melatonin. Central Venous Access Medical Necessity for Access: IV Access, Medication Administration Problem Qualifiers (1) UTI (urinary tract infection): Encounter type: JOHN Raya MD May 02, 2018 09:35
[2018-05-02 09:40] LABS: INR 1.79
[2018-05-02 09:42] LABS: PLATELET COUNT, AUTOMATED 390 K/uL (150-450)
[2018-05-02] MEDS: WARFARIN SOD 5 MG TAB PO SCH (13:38)
[2018-05-02 19:15] VITALS: BP 128/70
[2018-05-02] MEDS: PANTOPRAZOLE SOD 40 MG TABEC PO SCH (20:21)
[2018-05-02] MEDS: ATORVASTATIN 40 MG TAB PO SCH (20:21)
[2018-05-02] MEDS: MELATONIN 3 MG TAB PO SCH (20:21)
[2018-05-03] MEDS: oxyCODONE HCL 5 MG CAP PO SCH ×4 (00:05→18:00)
[2018-05-03] MEDS: ACETAMINOPHEN 325 MG TAB PO SCH ×5 (00:05→18:47)
[2018-05-03] MEDS: ceFAZolin(*) 1 GM VIAL 1 GM in NS(*) 0.9% 100 ML ADDVANT BAG 100 ML IV SCH ×3 (05:43→20:22)
[2018-05-03 06:19] LABS: INR 1.94
[2018-05-03 07:45] VITALS: BP 134/72
[2018-05-03] MEDS: NYSTATIN 100,000 U/GM PWD 15GM TP SCH ×2 (08:43→20:23)
[2018-05-03] MEDS: INSULIN ASPART 100 U/ML 3 ML PEN SUBQ PRN ×3 (08:44→20:32)
[2018-05-03] MEDS: INSULIN ASPART 100 U/ML 3 ML PEN SUBQ SCH ×3 (08:44→16:46)
[2018-05-03] MEDS: INSULIN GLARGINE 100 U/ML 3 ML PEN SUBQ SCH ×2 (08:45→20:22)
[2018-05-03] MEDS: ENOXAPARIN 100 MG/ML SYR SC SCH (08:45)
[2018-05-03] MEDS: MAGNESIUM OXIDE 400 MG TAB PO SCH (08:46)
[2018-05-03] MEDS: ASPIRIN 81 MG CHEW PO SCH (08:46)
[2018-05-03] MEDS: METOPROLOL SUCC XL 25 MG TABCR PO SCH (08:46)
[2018-05-03] MEDS: FUROSEMIDE 40 MG TAB PO SCH (08:46)
[2018-05-03] MEDS: guaiFENesin 600 MG TABCR PO SCH ×2 (08:46→20:23)
[2018-05-03] MEDS: DULoxetine HCL 30 MG CAPCR PO SCH (08:46)
[2018-05-03] MEDS: GABAPENTIN 300 MG CAP PO SCH ×3 (08:46→20:23)
[2018-05-03] MEDS: WARFARIN SOD 5 MG TAB PO SCH (12:33)
--- NOTE | 2018-05-03 13:32 | PT ECF NOTE ---
Type of Note: Initial Note Primary Medical Diagnosis: Generalized weakness related to sepsis Physical Therapy Evaluation Date: 04/24/18 SUBJECTIVE: Prior Hospitalization: Med/Surg at [facility] 03/26/18 through 04/04/18 Prior Level of Function: Pt ambulates short household distances and uses W/C primarily for longer distances or community mobility. Prior Living Status: Apartment, Senior housing Community Services: Home health detention Accessibility: Elevator, All needs on one level Equipment Owned: Front wheeled walker, Wheelchair Medical Complications/Past Medical History: Spina bifida Psychosocial Support: supportive spouse Pain Scale (0-10): variable depending on pain medication; pt states the current dose only is effective for approximately 2 hours. OBJECTIVE: Strength: Pt able to lift B) LE's against gravity and functional mobility indicates 3+/5 overall. Limitations at B) ankles related to SB. ROM: (please note any abnormalities) WFL with tissue approximation limiting from hip motion. Sensation: (please note any abnormalities) decreased in some areas related to SB Other Neuro findings: None noted Bed Mobility: Nursing reports Min/CGA Assistive device: Bed rail, Head of bed elevated Transfers: Minimum assistance/CGA Assistive Device: Front wheeled walker Gait: Not yet tested Assistive device: Stairs: N/A Assistive device: Timed Up and Go (>12 seconds indicated increased risk for falls): Not yet able to ambulate this distance 10 meter walk test (0.6m/second cannot function independently): n/a Other Objective Measures: n/a ASSESSMENT: Pt demos generalized weakness related to lengthy illness and decreased mobility. Pt would benefit from skilled PT to return to prior level of function for household mobility with ambulation and community mobility with W /C use. Problem List/Current Limitations: Decreased activity lise, Decreased strength , Decreased balance, Generalized weakness Short Term Goals: 1. Pt to be able to self propel W/C with additional weight of full O2 tank x 800' on uneven surfaces for community distances with vital signs in safe range. 2. Pt to ambulate x 50' with SBA and FWW on both carpet and linoleum, with proper safety awareness during multiple turns. 3. Pt to decrease time on TUG test by at least 5 seconds and demonstrate appropriate safety skills with turns and transfers. 4. Pt to be SBA/Modified indep with all bed mobility and sit to/from supine transfers 5. Pt to be SBA/Modified indep with all sit to/from stand transfers with appropriate height sitting surfaces. Rapid Outsole Stitcher Goals: Pt to return home with prior level of assistance Patient Goals: Return home as soon as antibiotics are done Rehabilitation Prognosis: Good Barriers for Discharge: Pt demos some resistance to completing a home exercise program indep. PLAN: The patient will benefit from skilled physical therapy services 5 times per week for 2 weeks including: Therapeutic Exercise Therapeutic Activities, Transfer Training, Gait Training, ADL's, Safety Training , Pt/Caregiver Training, Bed Mobility Thank you for this referral. If you have any questions, concerns, or comments about this report or plan, please contact me at . h. Zhanna Glover, PT, MPT MTDD
[2018-05-03 16:18] VITALS: BP 126/70
[2018-05-03] MEDS: CELECOXIB 200 MG CAP PO PRN (16:46)
[2018-05-03] MEDS: PANTOPRAZOLE SOD 40 MG TABEC PO SCH (20:23)
[2018-05-03] MEDS: MELATONIN 3 MG TAB PO SCH (20:23)
[2018-05-03] MEDS: ATORVASTATIN 40 MG TAB PO SCH (20:23)
[2018-05-04] MEDS: traZODone HCL 50 MG TAB PO PRN (00:28)
[2018-05-04] MEDS: oxyCODONE HCL 5 MG CAP PO SCH ×4 (00:30→18:13)
[2018-05-04] MEDS: ceFAZolin(*) 1 GM VIAL 1 GM in NS(*) 0.9% 100 ML ADDVANT BAG 100 ML IV SCH ×3 (05:39→20:36)
[2018-05-04] MEDS: ACETAMINOPHEN 325 MG TAB PO SCH ×3 (05:40→18:13)
[2018-05-04 07:41] VITALS: BP 125/74
[2018-05-04] MEDS: INSULIN ASPART 100 U/ML 3 ML PEN SUBQ SCH ×3 (08:43→16:30)
[2018-05-04] MEDS: INSULIN ASPART 100 U/ML 3 ML PEN SUBQ PRN ×3 (08:44→20:35)
[2018-05-04] MEDS: DULoxetine HCL 30 MG CAPCR PO SCH (08:45)
[2018-05-04] MEDS: ASPIRIN 81 MG CHEW PO SCH (08:45)
[2018-05-04] MEDS: INSULIN GLARGINE 100 U/ML 3 ML PEN SUBQ SCH ×2 (08:45→20:35)
[2018-05-04] MEDS: MAGNESIUM OXIDE 400 MG TAB PO SCH (08:45)
[2018-05-04] MEDS: guaiFENesin 600 MG TABCR PO SCH ×2 (08:45→20:36)
[2018-05-04] MEDS: METOPROLOL SUCC XL 25 MG TABCR PO SCH (08:45)
[2018-05-04] MEDS: FUROSEMIDE 40 MG TAB PO SCH (08:45)
[2018-05-04] MEDS: GABAPENTIN 300 MG CAP PO SCH ×3 (08:46→20:36)
[2018-05-04] MEDS: CELECOXIB 200 MG CAP PO PRN (08:48)
[2018-05-04] MEDS: NYSTATIN 100,000 U/GM PWD 15GM TP SCH ×2 (09:00→20:36)
[2018-05-04] MEDS: WARFARIN SOD 5 MG TAB PO SCH (13:36)
[2018-05-04 16:45] VITALS: BP 122/72
[2018-05-04] MEDS: MELATONIN 3 MG TAB PO SCH (20:36)
[2018-05-04] MEDS: PANTOPRAZOLE SOD 40 MG TABEC PO SCH (20:36)
[2018-05-04] MEDS: ATORVASTATIN 40 MG TAB PO SCH (20:36)
[2018-05-05] MEDS: ACETAMINOPHEN 325 MG TAB PO SCH ×4 (00:02→17:50)
[2018-05-05] MEDS: oxyCODONE HCL 5 MG CAP PO SCH ×4 (00:02→17:50)
[2018-05-05] MEDS: ceFAZolin(*) 1 GM VIAL 1 GM in NS(*) 0.9% 100 ML ADDVANT BAG 100 ML IV SCH ×3 (05:46→20:57)
[2018-05-05] MEDS: CELECOXIB 200 MG CAP PO PRN ×2 (05:50→17:06)
[2018-05-05 06:02] LABS: INR 2.27
[2018-05-05 08:00] VITALS: BP 128/67
[2018-05-05] MEDS: DULoxetine HCL 30 MG CAPCR PO SCH (08:54)
[2018-05-05] MEDS: guaiFENesin 600 MG TABCR PO SCH ×2 (08:54→20:53)
[2018-05-05] MEDS: FUROSEMIDE 40 MG TAB PO SCH (08:54)
[2018-05-05] MEDS: METOPROLOL SUCC XL 25 MG TABCR PO SCH (08:54)
[2018-05-05] MEDS: MAGNESIUM OXIDE 400 MG TAB PO SCH (08:54)
[2018-05-05] MEDS: GABAPENTIN 300 MG CAP PO SCH ×3 (08:54→20:52)
[2018-05-05] MEDS: ASPIRIN 81 MG CHEW PO SCH (08:55)
[2018-05-05] MEDS: INSULIN GLARGINE 100 U/ML 3 ML PEN SUBQ SCH ×2 (08:55→20:57)
[2018-05-05] MEDS: INSULIN ASPART 100 U/ML 3 ML PEN SUBQ SCH ×3 (08:56→17:07)
[2018-05-05] MEDS: INSULIN ASPART 100 U/ML 3 ML PEN SUBQ PRN ×3 (08:57→17:07)
[2018-05-05] MEDS: NYSTATIN 100,000 U/GM PWD 15GM TP SCH ×2 (09:00→20:57)
[2018-05-05] MEDS: WARFARIN SOD 5 MG TAB PO SCH (13:35)
[2018-05-05] MEDS: ONDANSETRON 4 MG/2 ML VIAL IVP PRN (14:12)
[2018-05-05 16:29] VITALS: BP 131/72
[2018-05-05] MEDS: ATORVASTATIN 40 MG TAB PO SCH (20:52)
[2018-05-05] MEDS: PANTOPRAZOLE SOD 40 MG TABEC PO SCH (20:52)
[2018-05-05] MEDS: MELATONIN 3 MG TAB PO SCH (20:52)
[2018-05-06] MEDS: oxyCODONE HCL 5 MG CAP PO SCH ×4 (00:07→18:00)
[2018-05-06] MEDS: ACETAMINOPHEN 325 MG TAB PO SCH ×4 (00:07→18:00)
[2018-05-06] MEDS: ceFAZolin(*) 1 GM VIAL 1 GM in NS(*) 0.9% 100 ML ADDVANT BAG 100 ML IV SCH ×3 (05:45→20:40)
[2018-05-06 07:51] VITALS: BP 111/68
[2018-05-06] MEDS: METOPROLOL SUCC XL 25 MG TABCR PO SCH (08:52)
[2018-05-06] MEDS: GABAPENTIN 300 MG CAP PO SCH ×3 (08:52→20:41)
[2018-05-06] MEDS: guaiFENesin 600 MG TABCR PO SCH ×2 (08:52→20:41)
[2018-05-06] MEDS: MAGNESIUM OXIDE 400 MG TAB PO SCH (08:52)
[2018-05-06] MEDS: ASPIRIN 81 MG CHEW PO SCH (08:52)
[2018-05-06] MEDS: FUROSEMIDE 40 MG TAB PO SCH (08:52)
[2018-05-06] MEDS: DULoxetine HCL 30 MG CAPCR PO SCH (08:52)
[2018-05-06] MEDS: INSULIN ASPART 100 U/ML 3 ML PEN SUBQ SCH ×3 (08:53→16:40)
[2018-05-06] MEDS: INSULIN GLARGINE 100 U/ML 3 ML PEN SUBQ SCH ×2 (08:53→20:41)
[2018-05-06] MEDS: CELECOXIB 200 MG CAP PO PRN (08:59)
[2018-05-06] MEDS: NYSTATIN 100,000 U/GM PWD 15GM TP SCH ×2 (09:00→20:40)
[2018-05-06] MEDS: INSULIN ASPART 100 U/ML 3 ML PEN SUBQ PRN ×3 (12:38→20:42)
[2018-05-06] MEDS: WARFARIN SOD 5 MG TAB PO SCH (13:37)
[2018-05-06 17:53] VITALS: BP 129/71
[2018-05-06] MEDS: MELATONIN 3 MG TAB PO SCH (20:40)
[2018-05-06] MEDS: PANTOPRAZOLE SOD 40 MG TABEC PO SCH (20:41)
[2018-05-06] MEDS: ATORVASTATIN 40 MG TAB PO SCH (20:42)
[2018-05-07] MEDS: oxyCODONE HCL 5 MG CAP PO SCH ×4 (00:05→18:12)
[2018-05-07] MEDS: ACETAMINOPHEN 325 MG TAB PO SCH ×4 (00:06→18:12)
[2018-05-07] MEDS: ceFAZolin(*) 1 GM VIAL 1 GM in NS(*) 0.9% 100 ML ADDVANT BAG 100 ML IV SCH ×3 (05:36→21:23)
[2018-05-07 06:04] LABS: INR 2.34
[2018-05-07 07:40] VITALS: BP 132/73
[2018-05-07] MEDS: INSULIN ASPART 100 U/ML 3 ML PEN SUBQ PRN ×4 (08:23→21:28)
[2018-05-07] MEDS: INSULIN ASPART 100 U/ML 3 ML PEN SUBQ SCH ×3 (08:23→17:36)
[2018-05-07] MEDS: INSULIN GLARGINE 100 U/ML 3 ML PEN SUBQ SCH ×2 (08:24→21:23)
[2018-05-07] MEDS: ASPIRIN 81 MG CHEW PO SCH (08:24)
[2018-05-07] MEDS: MAGNESIUM OXIDE 400 MG TAB PO SCH (08:24)
[2018-05-07] MEDS: NYSTATIN 100,000 U/GM PWD 15GM TP SCH ×2 (08:24→21:23)
[2018-05-07] MEDS: GABAPENTIN 300 MG CAP PO SCH ×3 (08:25→21:23)
[2018-05-07] MEDS: DULoxetine HCL 30 MG CAPCR PO SCH (08:25)
[2018-05-07] MEDS: METOPROLOL SUCC XL 25 MG TABCR PO SCH (08:25)
[2018-05-07] MEDS: CELECOXIB 200 MG CAP PO PRN ×2 (08:25→21:30)
[2018-05-07] MEDS: guaiFENesin 600 MG TABCR PO SCH ×2 (08:25→21:23)
[2018-05-07] MEDS: FUROSEMIDE 40 MG TAB PO SCH (08:25)
--- NOTE | 2018-05-07 11:09 | Medical Nutrition Therapy ---
Nutrition Anthropometrics Height (Inches): 67.00 Height (Calculated Centimeters: 170.016302 Weight (Pounds): 332 Weight (Calculated Kilograms): 150.729 BMI: 53 Delfino Nutrition Score: Adequate Delfino Nutrition Risk Score: 15 Dietary Referral Nutrition Risk Factors: Special Diet Nutrition Risk Comment: Diabetic Nutritional Diagnosis Nutritional Risk Acuity 2: Blood Glucose > 300mg/dl, Abcess/Non-Healing Wound Nutritional Risk Acuity 3: ST I/II Pressure Ulcer Nutritional Risk Acuity 4: Good Appetite Past Medical History: hx abdominal surgery, colostomy, Type IIDM, Indwelling catheter, Frequent UTI, Spina Bifida, GERD, THOMAS, Neurogenic bladder, Syncope, Dizziness, pulmonary embolus, deep venous thrombosis, small bowel obstruction, Decubitus ulcer, CAD, hypomagnesemia, Candidal intertrigo Nutritional Acuity: 2-Moderate Nutrition Diagnosis: Inappropriate Carb Intake Nutrition Etiology: Physiological Causes Nutrition Problem/Etiology/Sym: Inappropriate carb intake related to physiological causes as evidence by elevated whole blood glucose level > 300. Energy Requirement: 2275 ([place] Adj BMI >27.5) Protein Requirement: 152 (1g/kg) Fluid Requirement: 3040 (20ml/kg) Diet Type: Diet as Tolerated JERRY/REG Nutrition Intervention: Cont diet as ordered, Encourage intake, HS snack Drug: Diuretics, Warfarin Do Not Serve Any of the Follow: Broccoli, Brussel Sprouts, Spinach, Edna Lettuce, Cranberry Juice Diet Comment To RSA: 6OZ TO 8OZ OF MEAT (DOUBLE PORTIONS) Nutrition Monitoring & Eval Nutrition Goals: Eat 75-100% Meal, Eat 90-100% Meal Nutrition Follow-Up: Good Intake RD Patient Assessment Time: [address] Assessment Type: RD Re-Assessment Patient Nutrition Acuity: 2-Moderate Follow Up Date: May 15, 2018 Nutritional Comment: 04/04 Pt was transferred from Med/Surg to [facility] with leg abscess. Pts diet has changed from ADA 2200 calories restriction to a regular diet. Pt is allowed to have 6oz-8oz 9oz (double portion) per meal. Pt has eaten 100% of his breakfast on ECF. Pt has had a 30# wt gain since admission. Pt wt was 305 and is now 335. Observed pt breakfast and found pt consumed about 3000mg of Na from romero, ham and cottage cheese. Pt has +2 edema in both LE/feet. Discourage high Na intake. Pt continues to have elevated whole blood glucose from 198-128. No other labs or reports reported at this time. Will continue to monitor pt progress and encourage intake. -MT 04/09 Pt continues regular diet, consuming 100% large portion meals. Pt has also been ordering a pitcher of ice tea. Pt's blood glucose have increased since last week. This morning at 7:21AM whole blood glucose was (277). Pt will continue to receive antibiotics through PICC line for the next 6 weeks, along with antibiotics give PO. Hypomagnesemia has been resolved. will continue to monitor pt progress and encourage intake. -MT 04/16 Pt eating 100% of regular diet with large portions. Alb cont low at 2.4. Will cont to offer double meat portions and encourage high protein and lower CHO intake. BG cont elevated 200-300 however BG today have improved. Will cont to monitor and encourage intake. BK 04/19 Pt d/caleb from warfarin. Will provide high Vit K foods upon pt request. BK 04/23 Pt. reported to be eating regular diet, 100% large portion sizes. Blood glucose erratic, ranging from 119-397 over past 3 days. No other new labs or nutritionally significant meds as of today. Will continue to monitor. RB 04/30 Pt cont Regular diet with 100% intake of regular to large meals. Pt cont elevated BG ranging 147-369 this past week. Pt is on a regular diet to adjust his insulin with what he eats at home. Will cont to monitor and encourage healthy intake. BK 05/07 Pt cont on regular diet. BG cont elevated usually ranging in 200's with occasional BG >300. Intake 100% of regular to large meals. Wt is stable at 332#. Will cont to monitor and encourage healthy intake. JOCELYN CARTER May 07, 2018 11:09
[2018-05-07] MEDS: WARFARIN SOD 5 MG TAB PO SCH (12:53)
[2018-05-07 16:00] VITALS: BP 109/68
[2018-05-07] MEDS: PANTOPRAZOLE SOD 40 MG TABEC PO SCH (21:23)
[2018-05-07] MEDS: ATORVASTATIN 40 MG TAB PO SCH (21:23)
[2018-05-07] MEDS: MELATONIN 3 MG TAB PO SCH (21:23)
[2018-05-07] MEDS: traZODone HCL 50 MG TAB PO PRN (21:30)
[2018-05-08] MEDS: oxyCODONE HCL 5 MG CAP PO SCH ×4 (00:03→18:08)
[2018-05-08] MEDS: ACETAMINOPHEN 325 MG TAB PO SCH ×4 (00:03→18:08)
[2018-05-08] MEDS: ceFAZolin(*) 1 GM VIAL 1 GM in NS(*) 0.9% 100 ML ADDVANT BAG 100 ML IV SCH ×3 (05:30→20:24)
[2018-05-08 07:30] VITALS: BP 129/66
[2018-05-08] MEDS: INSULIN GLARGINE 100 U/ML 3 ML PEN SUBQ SCH ×2 (08:37→20:25)
[2018-05-08] MEDS: INSULIN ASPART 100 U/ML 3 ML PEN SUBQ SCH ×3 (08:37→16:38)
[2018-05-08] MEDS: GABAPENTIN 300 MG CAP PO SCH ×3 (08:39→20:26)
[2018-05-08] MEDS: INSULIN ASPART 100 U/ML 3 ML PEN SUBQ PRN ×3 (08:39→20:26)
[2018-05-08] MEDS: guaiFENesin 600 MG TABCR PO SCH ×2 (08:39→20:25)
[2018-05-08] MEDS: MAGNESIUM OXIDE 400 MG TAB PO SCH (08:39)
[2018-05-08] MEDS: DULoxetine HCL 30 MG CAPCR PO SCH (08:40)
[2018-05-08] MEDS: ASPIRIN 81 MG CHEW PO SCH (08:40)
[2018-05-08] MEDS: FUROSEMIDE 40 MG TAB PO SCH (08:40)
[2018-05-08] MEDS: NYSTATIN 100,000 U/GM PWD 15GM TP SCH ×2 (08:40→20:26)
[2018-05-08] MEDS: METOPROLOL SUCC XL 25 MG TABCR PO SCH (08:40)
[2018-05-08] MEDS: WARFARIN SOD 5 MG TAB PO SCH (12:26)
[2018-05-08] MEDS: ONDANSETRON 4 MG/2 ML VIAL IVP PRN (12:27)
[2018-05-08] MEDS ORDERED: PANT40TA65 PO (13:11)
--- NOTE | 2018-05-08 15:30 | PT ECF NOTE ---
Type of Note: Progress Note Primary Medical Diagnosis: Generalized weakness related to sepsis Physical Therapy Progress Note Date: 05/08/18 SUBJECTIVE: Prior Hospitalization: Med/Surg at [facility] 03/26/18 through 04/04/18 Prior Level of Function: Pt ambulates short household distances and uses W/C primarily for longer distances or community mobility. Prior Living Status: Apartment, Senior housing Community Services: Home health alf Accessibility: Elevator, All needs on one level Equipment Owned: Front wheeled walker, Wheelchair Medical Complications/Past Medical History: Spina bifida Psychosocial Support: supportive spouse Pain Scale (0-10): variable depending on pain medication OBJECTIVE: Strength: Pt able to lift B) LE's against gravity and functional mobility indicates 3+/5 overall. Limitations at B) ankles related to SB. ROM: WFL with tissue approximation limiting from hip motion. Sensation: decreased in some areas related to SB Other Neuro findings: None noted Bed Mobility: Melva/Ind with HOB raised and bed rail Transfers: SBA with RW Gait: 2x50' with RW, SBA Stairs: N/A Timed Up and Go (>12 seconds indicated increased risk for falls): 31 seconds ASSESSMENT: The patient is making good progress towards functional goals with plan to d/c home with [facility] services on 05/10/18. He is currently completing bed mobility with Melva/Ind, as well as transfers and ambulation with SBA and use of RW. PT will continue to address mobility needs and assist patient in improving functional endurance until time of d/c. Problem List/Current Limitations: Decreased activity lise, Decreased strength , Decreased balance, Generalized weakness Short Term Goals: 1. Pt to be able to self propel W/C with additional weight of full O2 tank x 800' on uneven surfaces for community distances with vital signs in safe range. 2. Pt to ambulate x 50' with SBA and FWW on both carpet and linoleum, with proper safety awareness during multiple turns. 3. Pt to decrease time on TUG test by at least 5 seconds and demonstrate appropriate safety skills with turns and transfers. 4. Pt to be SBA/Modified indep with all bed mobility and sit to/from supine transfers 5. Pt to be SBA/Modified indep with all sit to/from stand transfers with appropriate height sitting surfaces. 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 If you have any questions, concerns, or comments about this report or plan, please contact me at . Osiris Mayfield, PT, DPT MEGD
[2018-05-08 16:50] VITALS: BP 113/69
[2018-05-08] MEDS: MELATONIN 3 MG TAB PO SCH (20:25)
[2018-05-08] MEDS: PANTOPRAZOLE SOD 40 MG TABEC PO SCH (20:26)
[2018-05-08] MEDS: ATORVASTATIN 40 MG TAB PO SCH (20:26)
[2018-05-08] MEDS: traZODone HCL 50 MG TAB PO PRN (21:07)
[2018-05-09] MEDS: ACETAMINOPHEN 325 MG TAB PO SCH ×4 (00:23→18:28)
[2018-05-09] MEDS: oxyCODONE HCL 5 MG CAP PO SCH ×4 (00:23→18:28)
[2018-05-09] MEDS: ceFAZolin(*) 1 GM VIAL 1 GM in NS(*) 0.9% 100 ML ADDVANT BAG 100 ML IV SCH ×3 (05:31→20:28)
[2018-05-09 06:42] LABS: PLATELET COUNT, AUTOMATED 376 K/uL (150-450)
[2018-05-09] MEDS: ONDANSETRON 4 MG/2 ML VIAL IVP PRN (06:42)
[2018-05-09 06:56] LABS: INR 2.91
[2018-05-09 07:41] VITALS: BP 129/77
[2018-05-09] MEDS: INSULIN ASPART 100 U/ML 3 ML PEN SUBQ SCH ×3 (08:09→16:54)
[2018-05-09] MEDS: INSULIN ASPART 100 U/ML 3 ML PEN SUBQ PRN ×3 (08:10→20:30)
[2018-05-09] MEDS: GABAPENTIN 300 MG CAP PO SCH ×3 (08:18→20:29)
[2018-05-09] MEDS: ASPIRIN 81 MG CHEW PO SCH (08:18)
[2018-05-09] MEDS: NYSTATIN 100,000 U/GM PWD 15GM TP SCH ×2 (08:18→20:29)
[2018-05-09] MEDS: DULoxetine HCL 30 MG CAPCR PO SCH (08:18)
[2018-05-09] MEDS: FUROSEMIDE 40 MG TAB PO SCH (08:18)
[2018-05-09] MEDS: guaiFENesin 600 MG TABCR PO SCH ×2 (08:18→20:29)
[2018-05-09] MEDS: MAGNESIUM OXIDE 400 MG TAB PO SCH (08:18)
[2018-05-09] MEDS: METOPROLOL SUCC XL 25 MG TABCR PO SCH (08:18)
[2018-05-09] MEDS: INSULIN GLARGINE 100 U/ML 3 ML PEN SUBQ SCH ×2 (08:21→20:29)
--- NOTE | 2018-05-09 10:51 | Hospitalist Progress Note ---
Subjective Progress Notes Subjective The patient states he had chills this morning and has not felt as well. Nursing reports they have had to increase his O2 from 1 to 3 L today. His blood sugar is elevated this am as well. Physical Exam Vital Signs Date Time Temp Pulse Resp B/P (MAP) Pulse Ox O2 Delivery O2 Flow Rate FiO2 05/09/18 07:41 99.5 118 20 129/77 (94) 89 Nasal Cannula 3.0 Intake and Output 05/10/18 07:00 Intake Total 600 ml Output Total 650 ml Balance -50 ml Intake Oral 600 ml Output Urine Total 650 ml General Appearance: Alert, Awake, No Acute Distress, Other (T max 99.5 axillary.) Neuro: Other (Stable findings associated with spina bifida.) Eyes: PERRLA Cardiovascular: Other (Tachy, regular.) Respiratory: No Respiratory Distress, Clear to Auscultation (Anteriorly.) GI: Soft and Non-Tender, Other (Ostomy bag in place L abdomen.) Extremities: Warm, Perfused, Edema (1-2+) Psych: Appropriate Mood & Affect Result Diagram: 05/09/1862905/09/18629 Assessment and Plan Problems: (1) Low grade fever Status: Acute Assessment & Plan: The patient had chills this am. With this his pulse increased to 118. His WBC is not increased, but he now has a left shift. His blood sugar is elevated after being under much better control. His oxygen requirements have increased to 3 L overnight. Will get a CXR, UA with cx and repeat blood cultures. Will also get a d-dimer. Will go ahead and stop his Ancef tonight as he has completed a full course. (2) Chest pain Status: Acute Assessment & Plan: Called on 04/05 to see the patient due to chest pain. 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 He had also had a cough. CXR on admission showed bronchial thickening. His EKG was unchanged. Troponin was < 0.12. He was felt to have bronchitis which was most likely viral. O2 requirements were unchanged. Continue to monitor. Mucinex was added for cough. Feeling better. (3) Sepsis due to Staphylococcus aureus Status: Acute Assessment & Plan: He did present with fever. 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 He has been told he is not a candidate to have the shunt removed due to very high surgical risk. He was started on empiric treatment with Ertapenem and tigecycline, this admission. His cultures have grown the same strain of methicillin sensitive Staphylococcus that he has had in the past. He is now on treatment with Ancef. Repeat blood cultures are negative, he is afebrile and his WBC is in normal range. Dr. Calvert (the patient's ID physician) recommends 6 weeks of IV antibiotics, then chronic oral antibiotics. Echo was done. No evidence of endocarditis EF is normal. He had a PICC line placed on . He was transferred to [facility] for IV antibiotics. He will finish his course this evening. (4) UTI (urinary tract infection) Assessment & Plan: He was started on empiric treatment with ertapenem. 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 He was treated with several doses of fluconazole. The ertapenem and fluconazole have now been stopped. No further treatment unless he becomes symptomatic. (5) Type 2 diabetes mellitus Status: Chronic Assessment & Plan: He has been on Lantus 75units AM and 65units PM, but also does not follow diet at home and previously has had problems with hypoglycemia when on ADA diet in hospital. His Lantus doses were reduced and the evening dose was discontinued initially. His sugars remained high. He was placed back on bid Lantus dosing and Humalog was added before meals. His sugars had improved significantly but were elevated again this am. Will continue to monitor. (6) Hx of deep venous thrombosis Status: Chronic Assessment & Plan: He is on chronic treatment with warfarin, but was subtherapeutic at admission. He was placed on Lovenox and his warfarin dose was increased. His INR then thuan to over therapeutic range and the warfarin was placed on hold. He then developed anemia and had heme + stool. Warfarin was held and his dark stool improved and his hemoglobin increased. He has had multiple clots (leg, arm, PEs, R atrium) so will restart him on Lovenox and monitor for signs of bleeding. If none, restart warfarin. He has hx of GI bleed and had GI evaluation with Dr. Castillo several years ago and the patient states, "nothing was found". May need to get records. He has had no further evidence of bleeding. Hemoglobin has remained stable. Coumadin has been restarted and his Hgb has improved. He did develop low grade fever. Will order a d-dimer as he was off of his Coumadin for several days. (7) ANEMIA, UNSPECIFIED Assessment & Plan: See above. May be due to anticoagulation. Coumadin has been restarted. No evidence of blood loss in GI tract thus far. CBC ordered today. (8) Candidal intertrigo Status: Chronic Assessment & Plan: He has been treated with Nystatin powder. (9) Decubitus ulcer Status: Chronic Assessment & Plan: A wound care consult is ongoing. (10) Chronic pain Status: Chronic Assessment & Plan: He is on chronic treatment with oxycodone. He takes 4 tablets daily at home. He wants to increase to 6 tablets daily here. Will have him continue q 6 oxycodone and alternate with Tylenol. (11) Hypomagnesemia Status: Resolved Assessment & Plan: He has received several doses of supplemental magnesium. (12) Cough Status: Chronic Assessment & Plan: See above. The patient has had cough and chest pain for about a week and a half. CXR shows bronchial thickening. His O2 requirements are at baseline. Most likely he has bronchitis. Will monitor. Add Mucinex. (13) Dyssomnia Status: Chronic Assessment & Plan: Not sleeping well on Trazodone. Melatonin added. Central Venous Access Medical Necessity for Access: IV Access, Medication Administration Time Spent on Plan of Care: < 30 min Problem Qualifiers (1) UTI (urinary tract infection): Encounter type: JOHN Raya MD May 09, 2018 10:51
[2018-05-09] MEDS ORDERED: [UNRECOGNIZED DRUG - CODE] PO (10:57)
[2018-05-09] MEDS ORDERED: INSU100I30 SUBQ ×3 (11:05→11:17)
[2018-05-09] MEDS ORDERED: OXYB5TAB86 PO (11:05)
[2018-05-09] MEDS ORDERED: ONDA4TAB9 PO (11:05)
[2018-05-09] MEDS ORDERED: INSU100I35 SUBQ ×2 (11:05→11:17)
--- NOTE | 2018-05-09 11:13 | RADIOLOGY IMAGING REPORT ---
FACILITY: [facility] [place] PATIENT NAME: Rodrigue Phillips : 1960 MR: [id number] V: [id number] EXAM DATE: ORDERING PHYSICIAN: JOHN DUQUE TECHNOLOGIST: Location: [facility] Patient: Rodrigue Phillips : 1960 Visit/Account:[id number] Date of Sevice: 05/09/2018 EXAMINATION: Portable chest radiograph single view at 1034 hours HISTORY: Fever, increasing oxygen requirements. COMPARISON: 03/28/2018. FINDINGS: A single portable AP view of the chest is obtained. Lines/tubes: None. Lungs/pleura: No focal consolidation or pleural effusion. Heart: Negative. Mediastinum: Negative. Bony structures/body wall: Negative. IMPRESSION: No radiographic evidence of acute cardiopulmonary disease. Report Dictated By: Pili Nichole MD at 05/09/2018 11:07 AM Report E-Signed By: Pili Nichole MD at 05/09/2018 11:08 AM WSN:YE
[2018-05-09] MEDS ORDERED: MELA3TAB31 PO (11:17)
--- NOTE | 2018-05-09 11:29 | Hospitalist Depart ---
Discharge Summary Reason for Hosp/Final Diag: (1) Sepsis due to Staphylococcus aureus Status: Acute Hospital Course & Plan: He did present with fever. 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 He has been told he is not a candidate to have the shunt removed due to very high surgical risk. He was started on empiric treatment with Ertapenem and tigecycline, this admission. His cultures have grown the same strain of methicillin sensitive Staphylococcus that he has had in the past. He is now on treatment with Ancef. Repeat blood cultures are negative, he is afebrile and his WBC is in normal range. Dr. Calvert (the patient's ID physician) recommends 6 weeks of IV antibiotics, then chronic oral antibiotics. Echo was done. No evidence of endocarditis EF is normal. He had a PICC line placed on . He was transferred to [facility] for IV antibiotics. He finished his course 05/09. (2) Low grade fever Status: Acute Hospital Course & Plan: The patient had chills on 05/09. With this his pulse increased to 118. His WBC was not increased, but he did have a slight left shift. His blood sugar was elevated after being under much better control. His oxygen requirement increased to 3 L. A CXR, UA with culture and repeat blood cultures were ordered as well as a d-dimer. One blood culture was positive for Strep sanguinis which was felt to be a contaminant. 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 CXR was negative. Recheck of labs the following day showed no increase in WBC. His temperature did not become elevated. His blood sugar normalized. He felt better and was discharged to home on his chronic suppressive treatment with cefadroxil. (3) Chest pain Status: Acute Hospital Course & Plan: Called on 04/05 to see the patient due to chest pain. The patient stated he had had intermittent chest pain for a week and a half [employer]. He had also had a cough. CXR on admission showed bronchial thickening. His EKG was unchanged. Troponin was < 0.12. He was felt to have bronchitis which was most likely viral. O2 requirements were unchanged. Continue to monitor. Mucinex was added for cough. Feeling better. (4) UTI (urinary tract infection) Hospital Course & Plan: He was started on empiric treatment with ertapenem. 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 He was treated with several doses of fluconazole. The ertapenem and fluconazole were stopped. No further treatment was recommended unless he became symptomatic. (5) Type 2 diabetes mellitus Status: Chronic Hospital Course & Plan: He has been on Lantus 75units AM and 65units PM at home , but also does not follow a diet at home and previously has had problems with hypoglycemia when on ADA diet in hospital. His Lantus doses were reduced and the evening dose was discontinued initially. His sugars remained high. He was placed back on bid Lantus dosing and Humalog was added before meals. His sugars improved significantly. He will be discharged on the lower dose and will likely need his doses adjusted once he returns home. (6) Hx of deep venous thrombosis Status: Chronic Hospital Course & Plan: He is on chronic treatment with warfarin, but was subtherapeutic at admission. He was placed on Lovenox and his warfarin dose was increased. His INR then thuan to over therapeutic range and the warfarin was placed on hold. He then developed anemia and had heme + stool. Warfarin was held and his dark stool improved and his hemoglobin increased. He has had multiple clots (leg, arm, PEs, R atrium) so was restarted on Lovenox and monitored for signs of bleeding. He has hx of GI bleed and had GI evaluation with Dr. Castillo several years ago and the patient states, "nothing was found". He had no further evidence of bleeding. Hemoglobin remained stable. Coumadin was restarted and his Hgb improved. (7) ANEMIA, UNSPECIFIED Hospital Course & Plan: See above. Thought to be due to anticoagulation. Coumadin was restarted. No evidence of blood loss in GI tract and hemoglobin has remained stable. (8) Candidal intertrigo Status: Chronic Hospital Course & Plan: He was treated with Nystatin powder. (9) Decubitus ulcer Status: Chronic Hospital Course & Plan: Wound care consult was obtained. (10) Chronic pain Status: Chronic Hospital Course & Plan: He is on chronic treatment with oxycodone. He takes 4 tablets daily at home. This was continued. (11) Hypomagnesemia Status: Resolved Hospital Course & Plan: He received several doses of supplemental magnesium. His magnesium level normalized. (12) Cough Status: Chronic Hospital Course & Plan: See above. The patient had cough and chest pain for about a week and a half prior to admission. CXR showed bronchial thickening on admission. His O2 requirements remained baseline. He was felt to have bronchitis and was treated with Mucinex. (13) Dyssomnia Status: Chronic Hospital Course & Plan: He was not sleeping well on Trazodone alone. Melatonin was added. Departure Weight (Pounds): 338 Weight (Ounces): 8.0 Result Diagram: 05/09/1862905/09/18629 Condition: Improved Discharge: Home, Home Health Home Health RN Follow Up For: Medication Management, Nursing Assessment Home Health [employer] LOC[employer] MANAGER Follow Up For: ADL Assistance Time Spent: < 30 min Discharge Instructions Home Meds Active Scripts Ferrous Sulfate (FERROUS SULFATE) 325 Mg Tablet, 325 MG PO BID for 30 Days, #60 TAB Prov:DANIAL RAMIREZ DO 05/11/18 Oxybutynin Chloride (OXYBUTYNIN CHLORIDE) 5 Mg Tablet, 5 MG PO QDAY for 14 Days , #14 TAB Prov:DANIAL RAMIREZ DO 05/11/18 Oxycodone Hcl (OXYCODONE HCL) 5 Mg Tablet, 20 MG PO Q6H for 10 Days, #40 TAB Prov:DANIAL RAMIREZ DO 05/11/18 Trazodone Hcl (TRAZODONE HCL) 50 Mg Tablet, 25-50 MG PO QHS Y for insomnia for 30 Days, #30 TAB Prov:DANIAL RAMIREZ DO 05/11/18 Duloxetine Hcl (CYMBALTA) 30 Mg Capsule.dr, 30 MG PO QDAY, #30 CAP Prov:JOHN DUQUE MD 05/09/18 Melatonin (MELATONIN) 3 Mg Tablet, 3 MG PO QHS, #30 TAB Prov:JOHN DUQUE MD 05/09/18 Insulin Glargine 100 Un/Ml Pen (LANTUS SOLOSTAR PEN) 100 Unit/1 Ml Insuln.pen, 25-60 UNIT SUBQ DIRECTED, #5 UNITS Take 60 u sq q am and 25u sq q pm Prov:JOHN DUQUE MD 05/09/18 Insulin Aspart 100 Un/Ml Pen (NOVOLOG FLEXPEN) 100 Unit/1 Ml Insuln.pen, 30 UNIT SUBQ TIDAC, #1 VIAL Prov:JOHN DUQUE MD 05/09/18 Ondansetron (ONDANSETRON ODT) 4 Mg Tab.rapdis, 1 TAB PO Q12H Y for NAUSEA, #30 TAB 1 Refill Prov:JOHN DUQUE MD 05/09/18 Insulin Glargine 100 Un/Ml Pen (LANTUS SOLOSTAR PEN) 100 Unit/1 Ml Insuln.pen, 72 UNIT SUBQ QAM, #3 ML Prov:JOHN DUQUE MD 05/09/18 Insulin Glargine 100 Un/Ml Pen (LANTUS SOLOSTAR PEN) 100 Unit/1 Ml Insuln.pen, 65 UNIT SUBQ QHS, #3 ML Prov:JOHN DUQUE MD 05/09/18 Insulin Aspart 100 Un/Ml Pen (NOVOLOG FLEXPEN) 100 Unit/1 Ml Insuln.pen, 30 UNIT SUBQ TIDAC, #3 ML Prov:JOHN DUQUE MD 05/09/18 Atorvastatin Calcium (ATORVASTATIN CALCIUM) 40 Mg Tablet, 1 TAB PO QHS, #90 TAB 1 Refill Prov:LENIN ANTONIO APRNP-C 02/21/18 Gabapentin (GABAPENTIN) 600 Mg Tablet, 600 MG PO TID, #270 TAB 1 Refill Prov:LENIN ANTONIO APRNP-C 02/05/18 Warfarin Sodium (COUMADIN) 5 Mg Tablet, 1-1.5 TAB PO QDAY@13, #45 TAB 5 Refills 1.5 tabs every monday and 1 tab all other days Prov:LENIN ANTONIO APRN CASE PACKER-C 01/31/18 Amitriptyline Hcl (AMITRIPTYLINE HCL) 25 Mg Tablet, 25 MG PO QHS, #90 TAB 1 Refill Prov:LENIN ANTONIO APRNP-C 01/30/18 Furosemide (FUROSEMIDE) 40 Mg Tablet, 40 MG PO QDAY, #30 TAB Prov:RODRIGO BARRIGA DO 01/11/18 Magnesium Oxide (MAGNESIUM OXIDE) 400 Mg Tablet, 1 TAB PO DAILY, #180 TAB 2 Refills Prov:JOHN DUQUE MD 12/21/17 [Ostomy Supplies] No Conflict Check Prov:LENIN ANTONIO APRN CASE PACKER-C 12/21/17 NYSTATIN [id number] UNT/ML Topical Cream (NYSTATIN [id number] UNT/ML Topical Cream) 15 Gm Cream..g., 1 JAEL TP BID, #120 GM 2 Refills Apply to yeast infection twice daily until resolved then treat the area once daily M, W, F Prov:LENIN ANTONIO APRN-C 12/19/17 Metoprolol Succinate (TOPROL XL) 50 Mg Tab.er.24h, 0.5 TAB PO QDAY, #30 TAB 5 Refills Prov:LENIN ANTONIO APRNP-C 03/20/17 Reported Medications Cefadroxil Hydrate (CEFADROXIL) 500 Mg Capsule, 500 MG PO BID, CAPSULE 05/09/18 Pantoprazole Sodium (PANTOPRAZOLE SODIUM) 40 Mg Tablet.dr, 40 MG PO QDAY, TAB.SR 05/08/18 Oxygen (OXYGEN) Inha, 2 L INH, L 12/26/17 Aspirin (ASPIRIN) 81 Mg Tab.chew, 81 MG PO QDAY, TAB.CHEW 12/02/17 Discontinued Reported Medications Duloxetine Hcl (CYMBALTA) 30 Mg Capsule.dr, 30 MG PO QDAY, #5 CAP 12/21/17 Discontinued Scripts Oxycodone Hcl 20 Mg Tab (OXYCODONE HCL 20 MG TAB) 20 Mg Tablet, 1 TAB PO Q6H Y for PAIN, #120 TAB 0 Refills Prov:LENIN ANTONIO APRN-C 02/26/18 Ferrous Sulfate (FERROUS SULFATE) 325 Mg Tablet, 1 TAB PO BID, #180 TAB 0 Refills Prov:LENIN ANTONIO APRN-C 02/06/18 Trazodone Hcl (TRAZODONE HCL) 50 Mg Tablet, 50 MG PO QHS, #90 TAB 1 Refill Prov:LENIN ANTONIO APRN-C 12/05/17 Cefuroxime Axetil (CEFUROXIME) 500 Mg Tablet, 500 MG PO BID for 5 Days, #10 TAB Prov:ANDER CAMPOS MD 02/19/18 Lactobacillus Rhamnosus Gg (CULTURELLE) 1 Each Capsule, 1 EACH PO NOON, #30 CAPSULE 0 Refills Prov:LENIN ANTONIO APRN-C 01/30/18 Diet: Diabetic Special Instructions: The patient is to follow up with DANIELA Hoover in 1-2 weeks. Copies to: LENIN ANTONIO APRN-Mario Venous Thromboembolism Antithrombotics Is Pt On Any Antithrombotics?: Yes [id number] Certification Face to Face Home Health Certification Institutional Provider conducted the [id number] encounter. Electronic Undersigning Physician Certifies Home Health. I certify that the patient has been under my care and that I had a [id number] encounter that meets the physician [id number] encounter requirements with this patient. This patient is home-bound due to safety issues and continues to require assistance with ADL's. I certify that based on my findings, that Nursing, Aides and the following Home Health services are medically necessary: Medical Necessity: Nursing Date Face to Face Conducted: May 09, 2018 Problem Qualifiers (1) UTI (urinary tract infection): Encounter type: JOHN Raya MD May 09, 2018 11:29
[2018-05-09] MEDS ORDERED: DULO30CA35 PO (11:47)
[2018-05-09] MEDS: WARFARIN SOD 5 MG TAB PO SCH (12:52)
[2018-05-09 17:15] VITALS: BP 123/73
[2018-05-09] MEDS: ATORVASTATIN 40 MG TAB PO SCH (20:29)
[2018-05-09] MEDS: PANTOPRAZOLE SOD 40 MG TABEC PO SCH (20:29)
[2018-05-09] MEDS: MELATONIN 3 MG TAB PO SCH (23:16)
[2018-05-09] MEDS: traZODone HCL 50 MG TAB PO PRN (23:17)
[2018-05-10] MEDS: oxyCODONE HCL 5 MG CAP PO SCH ×4 (00:09→18:36)
[2018-05-10] MEDS: ACETAMINOPHEN 325 MG TAB PO SCH ×4 (00:09→18:35)
[2018-05-10 06:35] LABS: PLATELET COUNT, AUTOMATED 309 K/uL (150-450)
[2018-05-10 07:25] VITALS: BP 122/75
[2018-05-10] MEDS: INSULIN GLARGINE 100 U/ML 3 ML PEN SUBQ SCH ×2 (08:59→20:42)
[2018-05-10] MEDS: INSULIN ASPART 100 U/ML 3 ML PEN SUBQ SCH ×3 (09:00→15:52)
[2018-05-10] MEDS: INSULIN ASPART 100 U/ML 3 ML PEN SUBQ PRN ×4 (09:00→20:42)
[2018-05-10] MEDS: NYSTATIN 100,000 U/GM PWD 15GM TP SCH ×2 (09:00→20:39)
[2018-05-10] MEDS: DULoxetine HCL 30 MG CAPCR PO SCH (09:01)
[2018-05-10] MEDS: ASPIRIN 81 MG CHEW PO SCH (09:01)
[2018-05-10] MEDS: MAGNESIUM OXIDE 400 MG TAB PO SCH (09:01)
[2018-05-10] MEDS: guaiFENesin 600 MG TABCR PO SCH ×3 (09:01→20:41)
[2018-05-10] MEDS: FUROSEMIDE 40 MG TAB PO SCH (09:01)
[2018-05-10] MEDS: GABAPENTIN 300 MG CAP PO SCH ×3 (09:01→20:40)
[2018-05-10] MEDS: METOPROLOL SUCC XL 25 MG TABCR PO SCH (09:01)
[2018-05-10] MEDS ORDERED: CEPHALEXIN MONO 500 MG CAP PO SCH ×2 (11:30→13:00)
--- NOTE | 2018-05-10 11:39 | PT ECF NOTE ---
Type of Note: Discharge Summary Primary Medical Diagnosis: Generalized weakness related to sepsis Physical Therapy Discharge Date: 05/09/18 SUBJECTIVE: Prior Hospitalization: Med/Surg at [facility] 03/26/18 through 04/04/18 Prior Level of Function: Pt ambulates short household distances and uses W/C primarily for longer distances or community mobility. Prior Living Status: Apartment, Senior housing Community Services: Home health [facility] Accessibility: Elevator, All needs on one level Equipment Owned: Front wheeled walker, Wheelchair Medical Complications/Past Medical History: Spina bifida Psychosocial Support: supportive spouse Pain Scale (0-10): variable depending on pain medication OBJECTIVE: Strength: Pt able to lift B) LE's against gravity and functional mobility indicates 3+/5 overall. Limitations at B) ankles related to SB. ROM: WFL with tissue approximation limiting from hip motion. Sensation: decreased in some areas related to SB Other Neuro findings: None noted Bed Mobility: Melva/Ind with HOB raised and bed rail Transfers: SBA/Melva with RW Gait: 2x50' with RW, SBA Stairs: N/A Timed Up and Go (>12 seconds indicated increased risk for falls): 30 seconds ASSESSMENT: Pt reporting abdominal pain and chills today, but is agreeable to therapy session.Pt demonstrates increased independence with functional mobility and improved activity tolerance. The pt has met PT goals and is at baseline level of functional mobility. PT will discharge at this time, with recommendation that the patient continue to ambulate with nursing staff multiple times throughout the day until time of discharge. Problem List/Current Limitations: Decreased activity lise, Decreased strength , Decreased balance, Generalized weakness Short Term Goals: 1. Pt to be able to self propel W/C with additional weight of full O2 tank x 800' on uneven surfaces for community distances with vital signs in safe range. 2. Pt to ambulate x 50' with SBA and FWW on both carpet and linoleum, with proper safety awareness during multiple turns. 3. Pt to decrease time on TUG test by at least 5 seconds and demonstrate appropriate safety skills with turns and transfers. 4. Pt to be SBA/Modified indep with all bed mobility and sit to/from supine transfers 5. Pt to be SBA/Modified indep with all sit to/from stand transfers with appropriate height sitting surfaces. Penitentiary Goals: Pt to return home with prior level of assistance Patient Goals: Return home as soon as antibiotics are done PLAN: The patient will be discharged from PT services, with recommendation that he continue to mobilize with nursing staff. Thank you for this referral. If you have any questions, concerns, or comments about this report or plan, please contact me at . Osiris Mayfield, PT, DPT [facility]
[2018-05-10] MEDS ORDERED: TIGECYCLINE 50 MG INJS 50 MG in NS(*) 0.9% 100 ML BAG 100 ML IVPB ONE (12:45)
--- NOTE | 2018-05-10 12:49 | Miscellaneous Provider Note ---
Miscellaneous Provider Note Note Reported one of two blood cultures positive for GPC. These were drawn while on the IV Ancef. It may be contaminant, but he certainly is at risk for recurrent and possibly more resistant infection. Will need to cover for potential of MRSA now. Will place on IV Tigecycline. Await culture results. If it is only 1 of 2 blood cultures and an organism such as Staph epi it very well may be contaminant and the IV antibiotics could probably be stopped. ANTHONY DUQUE MD May 10, 2018 12:49
[2018-05-10] MEDS: WARFARIN SOD 5 MG TAB PO SCH (13:19)
[2018-05-10] MEDS: CELECOXIB 200 MG CAP PO PRN (15:57)
[2018-05-10] MEDS: TIGECYCLINE 50 MG INJS 50 MG in NS(*) 0.9% 100 ML BAG 100 ML IVPB SCH (18:36)
[2018-05-10] MEDS: MELATONIN 3 MG TAB PO SCH (20:40)
[2018-05-10] MEDS: PANTOPRAZOLE SOD 40 MG TABEC PO SCH (20:40)
[2018-05-10] MEDS: ATORVASTATIN 40 MG TAB PO SCH (20:40)
[2018-05-10 21:05] VITALS: BP 140/72
[2018-05-10] MEDS: ONDANSETRON 4 MG/2 ML VIAL IVP PRN (22:12)
[2018-05-10] MEDS: traZODone HCL 50 MG TAB PO PRN (23:11)
[2018-05-11] MEDS: oxyCODONE HCL 5 MG CAP PO SCH ×3 (00:12→11:57)
[2018-05-11] MEDS: ACETAMINOPHEN 325 MG TAB PO SCH ×3 (00:13→11:57)
[2018-05-11] MEDS: TIGECYCLINE 50 MG INJS 50 MG in NS(*) 0.9% 100 ML BAG 100 ML IVPB SCH (05:46)
[2018-05-11 07:23] LABS: INR 2.88
[2018-05-11 08:20] VITALS: BP 114/68
[2018-05-11] MEDS: ONDANSETRON 4 MG/2 ML VIAL IVP PRN (08:39)
[2018-05-11] MEDS: GABAPENTIN 300 MG CAP PO SCH ×2 (09:08→13:38)
[2018-05-11] MEDS: MAGNESIUM OXIDE 400 MG TAB PO SCH (09:08)
[2018-05-11] MEDS: ASPIRIN 81 MG CHEW PO SCH (09:08)
[2018-05-11] MEDS: DULoxetine HCL 30 MG CAPCR PO SCH (09:08)
[2018-05-11] MEDS: FUROSEMIDE 40 MG TAB PO SCH (09:08)
[2018-05-11] MEDS: METOPROLOL SUCC XL 25 MG TABCR PO SCH (09:08)
[2018-05-11] MEDS: guaiFENesin 600 MG TABCR PO SCH (09:09)
[2018-05-11] MEDS: INSULIN ASPART 100 U/ML 3 ML PEN SUBQ SCH ×2 (09:10→12:38)
[2018-05-11] MEDS: INSULIN GLARGINE 100 U/ML 3 ML PEN SUBQ SCH (09:10)
[2018-05-11] MEDS: INSULIN ASPART 100 U/ML 3 ML PEN SUBQ PRN ×2 (09:10→12:39)
[2018-05-11] MEDS: NYSTATIN 100,000 U/GM PWD 15GM TP SCH (10:00)
[2018-05-11] MEDS: WARFARIN SOD 5 MG TAB PO SCH (13:38)
[2018-05-11] MEDS ORDERED: OXYB5TAB86 PO (14:34)
[2018-05-11] MEDS ORDERED: OXYC5TAB38 PO (14:34)
[2018-05-11] MEDS ORDERED: TRAZ50TA34 PO (14:34)
[2018-05-11] MEDS ORDERED: FERR-53 PO (14:34)
[2018-05-15] MEDS ORDERED: WARFARIN SOD 5 MG TAB PO SCH (13:00)
== END 2018-05-11 16:30 | disposition home or self-care (01) | DRG 91 ==
LOC: ECF 13:49
PROVIDERS: ADMIT Internal Medicine; ATTEND Internal Medicine
DX: T85.730A Infection and inflammatory reaction due to ventricular intracranial (communicating) shunt, initial encounter (principal); A41.01 Sepsis due to Methicillin susceptible Staphylococcus aureus; B37.49 Other urogenital candidiasis; T83.511A Infection and inflammatory reaction due to indwelling urethral catheter, initial encounter; J20.8 Acute bronchitis due to other specified organisms; B96.89 Other specified bacterial agents as the cause of diseases classified elsewhere; E11.9 Type 2 diabetes mellitus without complications; D64.9 Anemia, unspecified; T45.515A Adverse effect of anticoagulants, initial encounter; B37.2 Candidiasis of skin and nail; G89.29 Other chronic pain; L89.329 Pressure ulcer of left buttock, unspecified stage; E83.42 Hypomagnesemia; G47.9 Sleep disorder, unspecified; Z93.3 Colostomy status; Z91.041 Radiographic dye allergy status; Z90.49 Acquired absence of other specified parts of digestive tract; Z79.4 Long term (current) use of insulin; Z86.718 Personal history of other venous thrombosis and embolism; Z79.01 Long term (current) use of anticoagulants; Z87.440 Personal history of urinary (tract) infections; Z88.8 Allergy status to other drugs, medicaments and biological substances; Z88.0 Allergy status to penicillin; Z88.1 Allergy status to other antibiotic agents
CPT/HCPCS: 36415; 36416; 71045; 81001; 82040; 82247; 82274; 82310; 82374; 82435; 82565; 82947; 82948; 83735; 84075; 84132; 84155; 84295; 84450; 84460; 84484; 84520; 85014; 85018; 85025; 85379; 85610; 86140; 87040; 87077; 87088; 87186; 93005; 97161; A4216; J0690; J1650; J1815; J2405; J2997; J3243; J7040; J7050

== ENCOUNTER 2018-05-23 19:24 | Emergency (ER) | payer MEDICARE, MEDICAID ==
[2017-12-26 12:06] VITALS: BMI 48.4
[~2018-05-23 19:24] MED LIST changes: -GEMF600T91 PO; +GEMF600T92 PO; +MELA3TAB31 PO; +OXYC5TAB38 PO
[2018-05-23 21:33] VITALS: BP 121/51
--- NOTE | 2018-05-23 22:12 | ER Report ---
History and Physical Time Seen By MD: 22:00 Hx. of Stated Complaint: jackson cathetor needs replaced HPI/ROS CHIEF COMPLAINT: unable to pass jackson HISTORY OF PRESENT ILLNESS: patient's jackson broke, without any parts breaking in side him, and caregiver was unable to advance a jackson at home, which he requires for neurogenic bladder due to spina bifida; presents for jackson placement. Notes mild lower abd discomfort c/w bladder distension. Denies uti symptoms, fevers, chills. Requests his glucose be checked, as well as decubitus ulcer be checked. Decub is ongoing with mild bloody drainage, no increase in pain, no fevers, vomiting REVIEW OF SYSTEMS: Respiratory: No cough, no dyspnea. Cardiovascular: No chest pain, no palpitations. Gastrointestinal: no vomiting, pain as above Musculoskeletal: No back pain, though left gluteal discomfort at site of ulcer Remainder of the 14 system rev: Yes Allergies: Coded Allergies: perflutren (Verified Allergy, Severe, Respiratory Arrest, 05/23/18) vancomycin (Verified Allergy, Severe, Respiratory arrest due to bronchospasm, 05/23/18) Respiratory arrest due to bronchospasm ciprofloxacin (Verified Allergy, Intermediate, TINGLING, 05/23/18) clindamycin (Verified Allergy, Intermediate, RASH, 05/23/18) amoxicillin (Verified Adverse Reaction, Mild, N/V/D, 05/23/18) 07/2017: Pt tolerated Unasyn without difficulty clavulanic acid (Verified Adverse Reaction, Mild, N/V/D, 05/23/18) Uncoded Allergies: contrast definity (Allergy, Severe, MENTAL STATUS CHANGES, 08/15/17) went unresponsive Home Meds Active Scripts Ferrous Sulfate (FERROUS SULFATE) 325 Mg Tablet, 325 MG PO BID for 30 Days, #60 TAB Prov:DANIAL RAMIREZ DO 05/11/18 Oxybutynin Chloride (OXYBUTYNIN CHLORIDE) 5 Mg Tablet, 5 MG PO QDAY for 14 Days , #14 TAB Prov:DANIAL RAMIREZ 05/11/18 Trazodone Hcl (TRAZODONE HCL) 50 Mg Tablet, 25-50 MG PO QHS Y for insomnia for 30 Days, #30 TAB Prov:DANIAL RAMIREZ 05/11/18 Duloxetine Hcl (CYMBALTA) 30 Mg Capsule.dr, 30 MG PO QDAY, #30 CAP Prov:JOHN DUQUE MD 05/09/18 Melatonin (MELATONIN) 3 Mg Tablet, 3 MG PO QHS, #30 TAB Prov:JOHN DUQUE MD 05/09/18 Insulin Glargine 100 Un/Ml Pen (LANTUS SOLOSTAR PEN) 100 Unit/1 Ml Insuln.pen, 25-60 UNIT SUBQ DIRECTED, #5 UNITS Take 60 u sq q am and 25u sq q pm Prov:JOHN DUQUE MD 05/09/18 Insulin Aspart 100 Un/Ml Pen (NOVOLOG FLEXPEN) 100 Unit/1 Ml Insuln.pen, 30 UNIT SUBQ TIDAC, #1 VIAL Prov:JOHN DUQUE MD 05/09/18 Ondansetron (ONDANSETRON ODT) 4 Mg Tab.rapdis, 1 TAB PO Q12H Y for NAUSEA, #30 TAB 1 Refill Prov:JOHN DUQUE MD 05/09/18 Insulin Glargine 100 Un/Ml Pen (LANTUS SOLOSTAR PEN) 100 Unit/1 Ml Insuln.pen, 72 UNIT SUBQ QAM, #3 ML Prov:JOHN DUQUE MD 05/09/18 Insulin Glargine 100 Un/Ml Pen (LANTUS SOLOSTAR PEN) 100 Unit/1 Ml Insuln.pen, 65 UNIT SUBQ QHS, #3 ML Prov:JOHN DUQUE MD 05/09/18 Insulin Aspart 100 Un/Ml Pen (NOVOLOG FLEXPEN) 100 Unit/1 Ml Insuln.pen, 30 UNIT SUBQ TIDAC, #3 ML Prov:JOHN DUQUE MD 05/09/18 Atorvastatin Calcium (ATORVASTATIN CALCIUM) 40 Mg Tablet, 1 TAB PO QHS, #90 TAB 1 Refill Prov:LENIN ANTONIO APRNP-C 02/21/18 Gabapentin (GABAPENTIN) 600 Mg Tablet, 600 MG PO TID, #270 TAB 1 Refill Prov:LENIN ANTONIO APRN SUPERVISOR [employer]-C 02/05/18 Warfarin Sodium (COUMADIN) 5 Mg Tablet, 1-1.5 TAB PO QDAY@13, #45 TAB 5 Refills 1.5 tabs every monday and 1 tab all other days Prov:LENIN ANTONIO APRN 01/31/18 Amitriptyline Hcl (AMITRIPTYLINE HCL) 25 Mg Tablet, 25 MG PO QHS, #90 TAB 1 Refill Prov:LENIN ANTONIO APRN 01/30/18 Furosemide (FUROSEMIDE) 40 Mg Tablet, 40 MG PO QDAY, #30 TAB Prov:NITHYARODRIGO 01/11/18 Magnesium Oxide (MAGNESIUM OXIDE) 400 Mg Tablet, 1 TAB PO DAILY, #180 TAB 2 Refills Prov:JOHN DUQUE MD 12/21/17 [Ostomy Supplies] No Conflict Check Prov:LENIN ANTONIO APRN 12/21/17 NYSTATIN [id number] UNT/ML Topical Cream (NYSTATIN 246853 UNT/ML Topical Cream) 15 Gm Cream..g., 1 JAEL TP BID, #120 GM 2 Refills Apply to yeast infection twice daily until resolved then treat the area once daily M, W, F Prov:LENIN ANTONIO APRN 12/19/17 Metoprolol Succinate (TOPROL XL) 50 Mg Tab.er.24h, 0.5 TAB PO QDAY, #30 TAB 5 Refills Prov:LENIN ANTONIO APRN 03/20/17 Reported Medications Cefadroxil Hydrate (CEFADROXIL) 500 Mg Capsule, 500 MG PO BID, CAPSULE 05/09/18 Pantoprazole Sodium (PANTOPRAZOLE SODIUM) 40 Mg Tablet.dr, 40 MG PO QDAY, TAB.SR 05/08/18 Oxygen (OXYGEN) Inha, 2 L INH, L 12/26/17 Aspirin (ASPIRIN) 81 Mg Tab.chew, 81 MG PO QDAY, TAB.CHEW 12/02/17 Discontinued Scripts Oxycodone Hcl (OXYCODONE HCL) 5 Mg Tablet, 20 MG PO Q6H for 10 Days, #40 TAB Prov:DANIAL RAMIREZ DO 05/11/18 Reviewed Nurses Notes: Yes Old Medical Records Reviewed: Yes Hx Smoking: No Smoking Status: Never Smoker Exposure to Second Hand Smoke?: Yes Hx Substance Use Disorder: No Hx Alcohol Use: Yes Constitutional Vital Sign - Last 24 Hours 05/23/18 05/23/18 05/23/18 05/23/18 20:45 20:58 20:58 21:03 Temp 98.1 Pulse 120 112 124 Resp 12 18 B/P (MAP) 117/58 122/55 (77) Pulse Ox 95 98 96 O2 Delivery Room Air Nasal Cannula Nasal Cannula O2 Flow Rate 2.0 2 2 05/23/18 21:33 Pulse 126 B/P (MAP) 121/51 (74) Pulse Ox 95 O2 Delivery Nasal Cannula O2 Flow Rate 2 Physical Exam General Appearance: The patient is alert, has no immediate need for airway protection and no signs of toxicity. [ ] Eyes: Pupils equal and round no pallor or injection. ENT, Mouth: Mucous membranes are moist. Respiratory: There are no retractions, lungs are clear to auscultation. Cardiovascular: Regular rate and rhythm. Gastrointestinal: Abdomen is soft and non tender, no masses, bowel sounds normal. Neurological: alert, oriented, nad Skin: Warm and dry, no rashes. Musculoskeletal: Neck is supple non tender. - l gluteal 2x2cm ulcer to dermal depth, no drainage, no surrounding erythema blood at meatus consistent with pt on coumadin and jackson attempts prior today DIFFERENTIAL DIAGNOSIS: After history and physical exam differential diagnosis was considered for urinary tract obstruction, foreign body, hypo/hyperglycemia, cellulitis/abscess Medical Decision Making ED Course/Re-evaluation ED Course I was able to place jackson passing obstruction with initial clot/blood in bag, that quickly cleared upon entering bladder. No e/o ongoing bleeding. No e/o cellultis/abscess from decub. No hypo or sig hyperglycemia. Pt much improved and comfortable on d/c. Decision to Disposition Date: May 23, 2018 Decision to Disposition Time: 22:45 Depart Departure Latest Vital Signs Vital Signs Date Time Temp Pulse Resp B/P (MAP) Pulse Ox O2 Delivery O2 Flow Rate FiO2 05/23/18 21:33 126 121/51 (74) 95 Nasal Cannula 2 05/23/18 20:58 18 05/23/18 20:45 98.1 Impression: Primary Impression: Urinary obstruction Condition: Improved Disposition: HOME OR SELF-CARE Referrals: LENIN ANTONIO APRN SUPERVISOR [employer]-C (PCP) Patient Instructions: Jackson Catheter Placement and Care (ED) JOHN OTERO MD May 23, 2018 22:12
== END 2018-05-23 22:40 | disposition home or self-care (01) ==
LOC: ER 20:27
DX: Z46.6 Encounter for fitting and adjustment of urinary device (principal); N13.8 Other obstructive and reflux uropathy; Q05.9 Spina bifida, unspecified; Z79.4 Long term (current) use of insulin; L89.329 Pressure ulcer of left buttock, unspecified stage
CPT/HCPCS: 36416; 82948; 99283

== ENCOUNTER 2018-05-24 11:47 | Emergency (ER) | payer MEDICARE, MEDICAID ==
[2017-12-26 12:06] VITALS: Wt 151.8 kg
[2018-05-24] MEDS ORDERED: NS(*) 0.9% 1000 ML BAG 1,000 ML IV ONE (11:55)
[2018-05-24] MEDS ORDERED: fentaNYL CITR 100 MCG/2 ML AMP IVP ONE ×2 (11:55→17:35)
--- NOTE | 2018-05-24 12:05 | ER Report ---
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 He had a recent admission from March through May 09 for IV antibiotics and rehabilitation an extended care. Patient was actually seen last evening for a blocked Muñoz catheter which was changed in the emergency department. She states that he was feeling well when he was discharged last evening. States that today he is feeling weak feeling chills and is worried that he may have a recurrence of his sepsis. He denies specifically fever but does report feeling chilled. Patient's blood sugar was elevated per prehospital personnel. REVIEW OF SYSTEMS: Constitutional: Chills Eyes: No discharge. ENT: No sore throat. Cardiovascular: No chest pain, no palpitations. Respiratory: No cough, no shortness of breath. Gastrointestinal: Generalized abdominal pain Genitourinary: Muñoz catheter Musculoskeletal: Chronic back pain Skin: Chronic decubitus ulcer Neurological: No headache. Allergies: Coded Allergies: perflutren (Verified Allergy, Severe, Respiratory Arrest, 05/23/18) vancomycin (Verified Allergy, Severe, Respiratory arrest due to bronchospasm, 05/23/18) Respiratory arrest due to bronchospasm ciprofloxacin (Verified Allergy, Intermediate, TINGLING, 05/23/18) clindamycin (Verified Allergy, Intermediate, RASH, 05/23/18) amoxicillin (Verified Adverse Reaction, Mild, N/V/D, 05/23/18) 07/2017: Pt tolerated Unasyn without difficulty clavulanic acid (Verified Adverse Reaction, Mild, N/V/D, 05/23/18) Uncoded Allergies: contrast definity (Allergy, Severe, MENTAL STATUS CHANGES, 08/15/17) went unresponsive Home Meds Active Scripts Ferrous Sulfate (FERROUS SULFATE) 325 Mg Tablet, 325 MG PO BID for 30 Days, #60 TAB Prov:DANIAL RAMIREZ DO 05/11/18 Oxybutynin Chloride (OXYBUTYNIN CHLORIDE) 5 Mg Tablet, 5 MG PO QDAY for 14 Days , #14 TAB Prov:DANIAL RAMIREZ DO 05/11/18 Trazodone Hcl (TRAZODONE HCL) 50 Mg Tablet, 25-50 MG PO QHS Y for insomnia for 30 Days, #30 TAB Prov:DANIAL RAMIREZ DO 05/11/18 Duloxetine Hcl (CYMBALTA) 30 Mg Capsule.dr, 30 MG PO QDAY, #30 CAP Prov:JOHN DUQUE MD 05/09/18 Melatonin (MELATONIN) 3 Mg Tablet, 3 MG PO QHS, #30 TAB Prov:JOHN DUQUE MD 05/09/18 Insulin Glargine 100 Un/Ml Pen (LANTUS SOLOSTAR PEN) 100 Unit/1 Ml Insuln.pen, 25-60 UNIT SUBQ DIRECTED, #5 UNITS Take 60 u sq q am and 25u sq q pm Prov:JOHN DUQUE MD 05/09/18 Insulin Aspart 100 Un/Ml Pen (NOVOLOG FLEXPEN) 100 Unit/1 Ml Insuln.pen, 30 UNIT SUBQ TIDAC, #1 VIAL Prov:JOHN DUQUE MD 05/09/18 Ondansetron (ONDANSETRON ODT) 4 Mg Tab.rapdis, 1 TAB PO Q12H Y for NAUSEA, #30 TAB 1 Refill Prov:JOHN DUQUE MD 05/09/18 Insulin Glargine 100 Un/Ml Pen (LANTUS SOLOSTAR PEN) 100 Unit/1 Ml Insuln.pen, 72 UNIT SUBQ QAM, #3 ML Prov:JOHN DUQUE MD 05/09/18 Insulin Glargine 100 Un/Ml Pen (LANTUS SOLOSTAR PEN) 100 Unit/1 Ml Insuln.pen, 65 UNIT SUBQ QHS, #3 ML Prov:JOHN DUQUE MD 05/09/18 Insulin Aspart 100 Un/Ml Pen (NOVOLOG FLEXPEN) 100 Unit/1 Ml Insuln.pen, 30 UNIT SUBQ TIDAC, #3 ML Prov:JOHN DUQUE MD 05/09/18 Atorvastatin Calcium (ATORVASTATIN CALCIUM) 40 Mg Tablet, 1 TAB PO QHS, #90 TAB 1 Refill Prov:LENIN ANTONIO APRN VOLTAGE TESTER-C 02/21/18 Gabapentin (GABAPENTIN) 600 Mg Tablet, 600 MG PO TID, #270 TAB 1 Refill Prov:LENIN ANTONOI APRN VOLTAGE TESTER-C 02/05/18 Warfarin Sodium (COUMADIN) 5 Mg Tablet, 1-1.5 TAB PO QDAY@13, #45 TAB 5 Refills 1.5 tabs every monday and 1 tab all other days Prov:LENIN ANTONIO APRN 01/31/18 Amitriptyline Hcl (AMITRIPTYLINE HCL) 25 Mg Tablet, 25 MG PO QHS, #90 TAB 1 Refill Prov:LENIN ANTONIO APRN 01/30/18 Furosemide (FUROSEMIDE) 40 Mg Tablet, 40 MG PO QDAY, #30 TAB Prov:RODRIGO BARRIGA DO 01/11/18 Magnesium Oxide (MAGNESIUM OXIDE) 400 Mg Tablet, 1 TAB PO DAILY, #180 TAB 2 Refills Prov:JOHN DUQUE MD 12/21/17 [Ostomy Supplies] No Conflict Check Prov:LENIN ANTONIO APRN 12/21/17 NYSTATIN 241147 UNT/ML Topical Cream (NYSTATIN 558527 UNT/ML Topical Cream) 15 Gm Cream..g., 1 JAEL TP BID, #120 GM 2 Refills Apply to yeast infection twice daily until resolved then treat the area once daily M, W, F Prov:LENIN ANTONIO APRN 12/19/17 Metoprolol Succinate (TOPROL XL) 50 Mg Tab.er.24h, 0.5 TAB PO QDAY, #30 TAB 5 Refills Prov:LENIN ANTONIO APRN-Mario 03/20/17 Reported Medications Cefadroxil Hydrate (CEFADROXIL) 500 Mg Capsule, 500 MG PO BID, CAPSULE 05/09/18 Pantoprazole Sodium (PANTOPRAZOLE SODIUM) 40 Mg Tablet.dr, 40 MG PO QDAY, TAB.SR 05/08/18 Oxygen (OXYGEN) Inha, 2 L INH, L 12/26/17 Aspirin (ASPIRIN) 81 Mg Tab.chew, 81 MG PO QDAY, TAB.CHEW 12/02/17 Discontinued Scripts Oxycodone Hcl (OXYCODONE HCL) 5 Mg Tablet, 20 MG PO Q6H for 10 Days, #40 TAB Prov:INDIA DOWDDANIAL 05/11/18 Past Medical/Surgical History Patient with past medical history for a nonfunctioning [facility] CSF shunt that is 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 He had a recent admission and long stay in an extended care for recurrence of sepsis due to staphylococcal aureus. He was initially started on ertapenem and tigecycline and on admission. He was discharged on 05/09/18 Patient also with a chronic indwelling Muñoz which was changed last evening after Muñoz malfunction, history of type II diabetes that is insulin requiring, history of deep venous thrombosis, history of candidal intertrigo. History of chronic decubitus ulcer, history of chronic pain, history of hypo-magnesium Hx Smoking: No Smoking Status: Never Smoker Exposure to Second Hand Smoke?: Yes Hx Substance Use Disorder: No Hx Alcohol Use: Yes Constitutional Vital Sign - Last 24 Hours 05/24/18 11:43 Temp 99.0 Pulse 142 Resp 18 B/P (MAP) 118/41 Pulse Ox 91 O2 Delivery Nasal Cannula Physical Exam General/Constitutional: Patient is awake, alert, having shakes and rigors; elevated BMI Head: Normocephalic and atraumatic. Eyes: Conjunctival clear, Pupils are equal and reactive to light.Sclera are clear and anicteric. Ears:External canals are clear. Tympanic membranes are clear with normal landmarks and light reflex. Nares: No rhinorrhea or bleeding. Turbinates are pink and moist. Oropharyngeal: Mucous membranes are moist. There is no pharyngeal erythema or exudate. There are no palatal petechiae. Uvula is midline and symmetrical. Neck: Supple, no adenopathy. Cardiovascular: Heart is tachycardic but regular. Pulmonary: Lungs are managed bilaterally audible rhonchi or wheezes. Abdomen: Protuberant with diffuse tenderness no obvious or focal rebound tenderness. He has a colostomy bag. Edges of colostomy site appear pink. Extremities: No gross deformities, patient with decubitus ulcer to the sacral area appears clean Neuro: Alert and oriented X3, Skin: Sacral decub Medical Decision Making Data Points Result Diagram: 05/24/18 1353 05/24/18 1353 Laboratory Hematology Test 05/24/18 13:53 Red Blood Count 4.55 M/uL (4.00-5.60) Mean Corpuscular Volume 66.2 fL (80.0-96.0) Mean Corpuscular Hemoglobin 20.6 pg (26.0-33.0) Mean Corpuscular Hemoglobin Concent 31.0 g/dL (32.0-36.0) Red Cell Distribution Width 19.4 % (11.5-14.5) Mean Platelet Volume 7.4 fL (7.2-11.1) Neutrophils (%) (Auto) 89.3 % (39.4-72.5) Lymphocytes (%) (Auto) 3.9 % (17.6-49.6) Monocytes (%) (Auto) 5.9 % (4.1-12.4) Eosinophils (%) (Auto) 0.1 % (0.4-6.7) Basophils (%) (Auto) 0.8 % (0.3-1.4) Nucleated RBC Relative Count (auto) 0.0 /100WBC Neutrophils # (Auto) 9.7 K/uL (2.0-7.4) Lymphocytes # (Auto) 0.4 K/uL (1.3-3.6) Monocytes # (Auto) 0.6 K/uL (0.3-1.0) Eosinophils # (Auto) 0.0 K/uL (0.0-0.5) Basophils # (Auto) 0.1 K/uL (0.0-0.1) Nucleated RBC Absolute Count (auto) 0.00 K/uL Peripheral Blood Smear Yes Y/N Erythrocyte Sedimentation Rate 87 mm/HOUR (0-20) Prothrombin Time 48.0 seconds (12.0-14.4) Prothromb Time International Ratio 5.02 Activated Partial Thromboplast Time 77 seconds (23-35) Urine Color Red Urine Clarity Turbid Urine pH 5.0 pH (4.8-9.5) Urine Specific [place] 1.012 Urine Protein 100 mg/dL (NEGATIVE) Urine Glucose (UA) 50 mg/dL (NEGATIVE) Urine Ketones Negative mg/dL (NEGATIVE) Urine Blood Large (NEGATIVE) Urine Nitrite Negative (NEGATIVE) Urine Bilirubin Negative (NEGATIVE) Urine Urobilinogen Negative mg/dL (0.2-1.9) Urine Leukocyte Esterase Moderate (NEGATIVE) Urine RBC 1449 /HPF (0-2/HPF) Urine WBC 4755 /HPF (0-5/HPF) Urine WBC Clumps Many /HPF Urine Squamous Epithelial Cells Many /LPF (NONE-FEW) Urine Bacteria Many /HPF (NONE-FEW) Urine Hyaline Casts Many /LPF (NONE-FEW) Urine Mucus None /HPF (NONE-FEW) Sodium Level 130 mmol/L (137-145) Potassium Level 4.9 mmol/L (3.5-5.0) Chloride Level 96 mmol/L (98-107) Carbon Dioxide Level 21 mmol/L (22-30) Blood Urea Nitrogen 54 mg/dl (9-21) Creatinine 1.20 mg/dl (0.66-1.25) Glomerular Filtration Rate Calc > 60.0 Random Glucose 352 mg/dl (75-110) Lactate 3.3 mmol/L (0.7-2.1) Calcium Level 8.3 mg/dl (8.4-10.2) Magnesium Level 1.6 mg/dl (1.7-2.2) Total Bilirubin 0.4 mg/dl (0.2-1.3) Aspartate Amino Transf (AST/SGOT) 291 U/L (0-35) Alanine Aminotransferase (ALT/SGPT) 183 U/L (0-56) Alkaline Phosphatase 154 U/L (0-126) Total Creatine Kinase 23 U/L (55-170) Troponin I 0.015 ng/ml C-Reactive Protein 19.0 mg/dl (<1.0) Total Protein 6.9 g/dl (6.3-8.2) Albumin 3.4 g/dl (3.5-5.0) Chemistry Test 05/24/18 13:53 White Blood Count 10.9 k/uL (4.5-11.0) Red Blood Count 4.55 M/uL (4.00-5.60) Hemoglobin 9.4 g/dL (14.0-18.0) Hematocrit 30.2 % (42.0-52.0) Mean Corpuscular Volume 66.2 fL (80.0-96.0) Mean Corpuscular Hemoglobin 20.6 pg (26.0-33.0) Mean Corpuscular Hemoglobin Concent 31.0 g/dL (32.0-36.0) Red Cell Distribution Width 19.4 % (11.5-14.5) Platelet Count 361 K/uL (150-450) Mean Platelet Volume 7.4 fL (7.2-11.1) Neutrophils (%) (Auto) 89.3 % (39.4-72.5) Lymphocytes (%) (Auto) 3.9 % (17.6-49.6) Monocytes (%) (Auto) 5.9 % (4.1-12.4) Eosinophils (%) (Auto) 0.1 % (0.4-6.7) Basophils (%) (Auto) 0.8 % (0.3-1.4) Nucleated RBC Relative Count (auto) 0.0 /100WBC Neutrophils # (Auto) 9.7 K/uL (2.0-7.4) Lymphocytes # (Auto) 0.4 K/uL (1.3-3.6) Monocytes # (Auto) 0.6 K/uL (0.3-1.0) Eosinophils # (Auto) 0.0 K/uL (0.0-0.5) Basophils # (Auto) 0.1 K/uL (0.0-0.1) Nucleated RBC Absolute Count (auto) 0.00 K/uL Peripheral Blood Smear Yes Y/N Erythrocyte Sedimentation Rate 87 mm/HOUR (0-20) Prothrombin Time 48.0 seconds (12.0-14.4) Prothromb Time International Ratio 5.02 Activated Partial Thromboplast Time 77 seconds (23-35) Urine Color Red Urine Clarity Turbid Urine pH 5.0 pH (4.8-9.5) Urine Specific [place] 1.012 Urine Protein 100 mg/dL (NEGATIVE) Urine Glucose (UA) 50 mg/dL (NEGATIVE) Urine Ketones Negative mg/dL (NEGATIVE) Urine Blood Large (NEGATIVE) Urine Nitrite Negative (NEGATIVE) Urine Bilirubin Negative (NEGATIVE) Urine Urobilinogen Negative mg/dL (0.2-1.9) Urine Leukocyte Esterase Moderate (NEGATIVE) Urine RBC 1449 /HPF (0-2/HPF) Urine WBC 4755 /HPF (0-5/HPF) Urine WBC Clumps Many /HPF Urine Squamous Epithelial Cells Many /LPF (NONE-FEW) Urine Bacteria Many /HPF (NONE-FEW) Urine Hyaline Casts Many /LPF (NONE-FEW) Urine Mucus None /HPF (NONE-FEW) Glomerular Filtration Rate Calc > 60.0 Lactate 3.3 mmol/L (0.7-2.1) Calcium Level 8.3 mg/dl (8.4-10.2) Magnesium Level 1.6 mg/dl (1.7-2.2) Total Bilirubin 0.4 mg/dl (0.2-1.3) Aspartate Amino Transf (AST/SGOT) 291 U/L (0-35) Alanine Aminotransferase (ALT/SGPT) 183 U/L (0-56) Alkaline Phosphatase 154 U/L (0-126) Total Creatine Kinase 23 U/L (55-170) Troponin I 0.015 ng/ml C-Reactive Protein 19.0 mg/dl (<1.0) Total Protein 6.9 g/dl (6.3-8.2) Albumin 3.4 g/dl (3.5-5.0) Coagulation Test 05/24/18 13:53 Prothrombin Time 48.0 seconds Prothromb Time International Ratio 5.02 Activated Partial Thromboplast Time 77 seconds Urinalysis Test 05/24/18 13:53 Urine Color Red Urine Clarity Turbid Urine pH 5.0 pH (4.8-9.5) Urine Specific [place] 1.012 Urine Protein 100 mg/dL (NEGATIVE) Urine Glucose (UA) 50 mg/dL (NEGATIVE) Urine Ketones Negative mg/dL (NEGATIVE) Urine Blood Large (NEGATIVE) Urine Nitrite Negative (NEGATIVE) Urine Bilirubin Negative (NEGATIVE) Urine Urobilinogen Negative mg/dL (0.2-1.9) Urine Leukocyte Esterase Moderate (NEGATIVE) Urine RBC 1449 /HPF (0-2/HPF) Urine WBC 4755 /HPF (0-5/HPF) Urine WBC Clumps Many /HPF Urine Squamous Epithelial Cells Many /LPF (NONE-FEW) Urine Bacteria Many /HPF (NONE-FEW) Urine Hyaline Casts Many /LPF (NONE-FEW) Urine Mucus None /HPF (NONE-FEW) EKG/Imaging EKG Interpretation EKG shows sinus tachycardia with a ventricular rate of approximately 130 bpm. Monitor Interpretation: Sinus Tachycardia Imaging FACILITY: [facility] - [place] PATIENT NAME: Rodrigue Phillips : 1960 MR: [id number] V: [id number] EXAM DATE: ORDERING PHYSICIAN: JOHN HENDRICKS TECHNOLOGIST: [place] [facility] [place]: Rodrigue Phillips : 1960 Visit/Account:[id number] Date of Sevice: 05/24/2018 EXAMINATION: CT abdomen and pelvis without IV contrast HISTORY: Abdominal pain. TECHNIQUE: Axial CT images of the abdomen and pelvis were obtained without IV contrast, with coronal and sagittal 2D reconstructed images. One of the following dose optimization techniques was utilized in the performance of this exam: Automated exposure control; adjustment of the mA and/ or kV according to the patient's size; or use of an iterative reconstruction technique. Specific details can be referenced in the facility's radiology CT exam operational policy. COMPARISON: 08/16/2017. FINDINGS: Evaluation of the solid and viscus parenchymal organs is limited without the benefit of IV contrast. Liver: Negative. Gallbladder and bile ducts: There is diffuse gallbladder wall thickening with adjacent pericholecystic stranding, suspicious for acute cholecystitis. No significant bile duct dilatation. Spleen: Negative. Pancreas: Negative. Adrenal glands: Negative. Kidneys: Negative. No urinary calculi or hydronephrosis. Bowel and peritoneum: The small bowel and colon are normal in caliber. No bowel obstruction. There is a diverting loop colostomy along the anterior left abdominal wall. There is a small bowel anastomosis in the left lower abdomen. No free fluid or free intraperitoneal air. Pelvic structures: The urinary bladder is moderately distended. There is an indwelling Muñoz catheter in place, with an artificial bladder sphincter device at the bladder base. Lymph node assessment: Negative. Vessels: Mild vascular calcifications. Normal caliber abdominal aorta. Musculoskeletal: No acute osseous findings. Scattered degenerative changes along the lumbar spine. Body wall: There is herniation of a small amount of peritoneal fat at the colostomy site. Lung bases: Negative. IMPRESSION: 1. There is diffuse wall thickening of the gallbladder with pericholecystic stranding, suspicious for acute cholecystitis. 2. No other acute intra-abdominal findings by noncontrast CT imaging. Findings were discussed with JOHN HENDRICKS at 05/24/2018 2:19 PM. Report Dictated By: Jordan Beasley MD at 05/24/2018 2:10 PM Report E-Signed By: Jordan Beasley MD at 05/24/2018 2:19 PM WSN:[id number] ED Course/Re-evaluation Clinical Indication for ER IV: IV Access ED Course 05/24/2018 12:19:05 pm patient with suspected recurrence of sepsis. Nursing staff unable to obtain IV access at this time. Plan will be to place a PICC line catheter anticipating hospital stay. We will perform sepsis workup. 05/24/2018 3:39:[address] Castro from general surgery. History physical exam ED course and imaging studies discussed. Dr. Castro also discussed the case with the hospitalist Dr. Barriga. He was felt that this patient will require a higher level of service be delivered here safely at [facility]. They request we call [facility] which is where patient has received care in the past. I spoke with Dr. Mao was on-call for general surgery. Patient is been accepted for transport at this time. Her [place] where we have not started any antibiotics at this point as the patient has a complex antibiotic allergy. Decision to Disposition Date: May 24, 2018 Decision to Disposition Time: 15:41 Depart Departure Latest Vital Signs Vital Signs Date Time Temp Pulse Resp B/P (MAP) Pulse Ox O2 Delivery O2 Flow Rate FiO2 05/24/18 11:43 99.0 142 18 118/41 91 Nasal Cannula Impression: Primary Impression: Cholecystitis Condition: Improved Disposition: XFER TO ACUTE CARE HOSPITAL (To Dr Mao at [facility]) Referrals: LENIN ANTONIO APRN VOLTAGE TESTER-C (PCP) JOHN HENDRICKS MD May 24, 2018 12:05
--- NOTE | 2018-05-24 13:50 | RADIOLOGY IMAGING REPORT ---
FACILITY: [facility] - [place] PATIENT NAME: Rodrigue Phillips : 1960 MR: [id number] V: [id number] EXAM DATE: ORDERING PHYSICIAN: JOHN HENDRICKS TECHNOLOGIST: Location: [facility] Patient: Rodrigue Phillips : 1960 Visit/Account:[id number] Date of Sevice: 05/24/2018 Exam type: CHEST PA AND LAT History: Fever COMPARISON: May 09, 2018 Findings: Findings: Tubing projects over the right-sided the neck thorax and over the upper abdomen. There is a PICC line seen on the right terminating over the axillary region. There is no evidence of focal in filtrates pleural effusions or overt pulmonary edema. Cardiac silhouette is normal in size. IMPRESSION: 1. No acute cardiac pulmonary process is seen Report Dictated By: Milena Olea MD at 05/24/2018 1:43 PM Report E-Signed By: Milena Olea MD at 05/24/2018 1:46 PM WSN:[email or web address]
--- NOTE | 2018-05-24 14:24 | RADIOLOGY IMAGING REPORT ---
FACILITY: [facility] - [place] PATIENT NAME: Rodrigue Phillips : 1960 MR: [id number] V: [id number] EXAM DATE: ORDERING PHYSICIAN: JOHN HENDRICKS TECHNOLOGIST: Location: [facility] - [place] Patient: Rodrigue Phillips : 1960 Visit/Account:[id number] Date of Sevice: 05/24/2018 EXAMINATION: CT abdomen and pelvis without IV contrast HISTORY: Abdominal pain. TECHNIQUE: Axial CT images of the abdomen and pelvis were obtained without IV contrast, with renteria l and sagittal 2D reconstructed images. One of the following dose optimization techniques was utilized in the performance of this exam: Autom ated exposure control; adjustment of the mA and/or kV according to the patient's size; or use of an i terative reconstruction technique. Specific details can be referenced in the facility's radiology C T exam operational policy. COMPARISON: 08/16/2017. FINDINGS: Evaluation of the solid and viscus parenchymal organs is limited without the benefit of IV contrast. Liver: Negative. Gallbladder and bile ducts: There is diffuse gallbladder wall thickening with adjacent pericholecyst ic stranding, suspicious for acute cholecystitis. No significant bile duct dilatation. Spleen: Negative. Pancreas: Negative. Adrenal glands: Negative. Kidneys: Negative. No urinary calculi or hydronephrosis. Bowel and peritoneum: The small bowel and colon are normal in caliber. No bowel obstruction. There i s a diverting loop colostomy along the anterior left abdominal wall. There is a small bowel anastomos is in the left lower abdomen. No free fluid or free intraperitoneal air. Pelvic structures: The urinary bladder is moderately distended. There is an indwelling Muñoz cath eter in place, with an artificial bladder sphincter device at the bladder base. Lymph node assessment: Negative. Vessels: Mild vascular calcifications. Normal caliber abdominal aorta. Musculoskeletal: No acute osseous findings. Scattered degenerative changes along the lumbar spine. Body wall: There is herniation of a small amount of peritoneal fat at the colostomy site. Lung bases: Negative. IMPRESSION: 1. There is diffuse wall thickening of the gallbladder with pericholecystic stranding, suspicious for acute cholecystitis. 2. No other acute intra-abdominal findings by noncontrast CT imaging. Findings were discussed with JOHN HENDRICKS at 05/24/2018 2:19 PM. Report Dictated By: Jordan Beasley MD at 05/24/2018 2:10 PM Report E-Signed By: Jordan Beasley MD at 05/24/2018 2:19 PM WSN:[id number]
[2018-05-24 14:26] LABS: PLATELET COUNT, AUTOMATED 361 K/uL (150-450)
--- NOTE | 2018-05-24 14:34 | EKG ---
FACILITY: [facility] [place] PATIENT NAME: GEORGE ROY : [id number] MR: [id number] V: [id number] EXAM DATE: ORDERING PHYSICIAN: JOHN HENDRICKS TECHNOLOGIST: Test Reason : weakness Blood Pressure : / mmHG Vent. Rate : 133 BPM Atrial Rate : 133 BPM P-R Int : 132 ms QRS Dur : 086 ms QT Int : 298 ms P-R-T Axes : 072 102 063 degrees QTc Int : 443 ms Sinus tachycardia Rightward axis Borderline ECG When compared with ECG of 05-APR-2018 12:46, No significant change was found Confirmed by RODRIGO BARRIGA ([id number]) on 05/24/2018 3:44:52 PM Referred By: Confirmed By:RODRIGO BARRIGA
[2018-05-24 14:41] LABS: INR 5.02
--- NOTE | 2018-05-24 16:01 | RADIOLOGY IMAGING REPORT ---
FACILITY: [facility] - [place] PATIENT NAME: Rodrigue Phillips : 1960 MR: [id number] V: [id number] EXAM DATE: ORDERING PHYSICIAN: JOHN HENDRICKS TECHNOLOGIST: Location: [facility] - [place] Patient: Rodrigue Phillips : 1960 Visit/Account:[id number] Date of Sevice: 05/24/2018 Exam type: PICC LINE PLACEMENT, PICC LINE INSERTION History: need for IV access Comparison: January 24, 2018. Findings: Informed consent was obtained. The patient's right arm was prepped and draped in usual sterile fashi on. Local anesthesia was accomplished with 1% lidocaine. Utilizing both sonographic and fluoroscopi c guidance a 30 cm long trimmed 5 [place] double lumen power PICC was inserted via the patent right ba silic vein with the distal tip resting in the right axillary region. The catheter could not be advan caleb further. A similar finding was encountered in prior PICC line insertions. Both lumens of power PICC were flushed with 5 mL of saline flush. Proximal portion PICC line was adhered to the patient's arm the sterile dressing. The sonographic images were saved to PACS. The procedure was accomplishe d without apparent complication. The fluoroscopy dose area product was 328.83 micro-Prater per meter s quared. IMPRESSION: 1. Successful placement of a 30 cm long trimmed 5 [place] Zealander double lumen power PICC inserted via the pa tent right basilic vein with the distal tip resting in the right axillary region. Report Dictated By: Milena Olea MD at 05/24/2018 3:56 PM Report E-Signed By: Milena Olea MD at 05/24/2018 3:58 PM WSN:[email or web address]
--- NOTE | 2018-05-24 16:01 | RADIOLOGY IMAGING REPORT ---
FACILITY: [facility] - [place] PATIENT NAME: Rodrigue Phillips : 1960 MR: [id number] V: [id number] EXAM DATE: ORDERING PHYSICIAN: JOHN HENDRICKS TECHNOLOGIST: Location: [facility] [place] Patient: Rodrigue Phillips : 1960 Visit/Account:[id number] Date of Sevice: 05/24/2018 Exam type: PICC LINE PLACEMENT, PICC LINE INSERTION History: need for IV access Comparison: January 24, 2018. Findings: Informed consent was obtained. The patient's right arm was prepped and draped in usual sterile fashi on. Local anesthesia was accomplished with 1% lidocaine. Utilizing both sonographic and fluoroscopi c guidance a 30 cm long trimmed 5 Singaporean double lumen power PICC was inserted via the patent right ba silic vein with the distal tip resting in the right axillary region. The catheter could not be advan caleb further. A similar finding was encountered in prior PICC line insertions. Both lumens of power PICC were flushed with 5 mL of saline flush. Proximal portion PICC line was adhered to the patient's arm the sterile dressing. The sonographic images were saved to PACS. The procedure was accomplishe d without apparent complication. The fluoroscopy dose area product was 328.83 micro-Prater per meter s quared. IMPRESSION: 1. Successful placement of a 30 cm long trimmed 5 Singaporean double lumen power PICC inserted via the pa tent right basilic vein with the distal tip resting in the right axillary region. Report Dictated By: Milena Olea MD at 05/24/2018 3:56 PM Report E-Signed By: Milena Olea MD at 05/24/2018 3:58 PM WSN:[email or web address]
[2018-05-24 17:30] VITALS: BP 104/70
== END 2018-05-24 15:20 | disposition short-term general hospital (02) ==
LOC: ER 12:00
DX: K81.9 Cholecystitis, unspecified (principal); E11.9 Type 2 diabetes mellitus without complications; Z79.4 Long term (current) use of insulin; R50.9 Fever, unspecified; R53.1 Weakness; Z79.01 Long term (current) use of anticoagulants; Z79.899 Other long term (current) drug therapy
CPT/HCPCS: 36569; 71046; 74176; 76937; 81001; 82550; 83605; 83735; 84484; 85025; 85610; 85651; 85730; 86140; 86850; 86900; 86901; 87040; 87088; 93005; 96361; 96374; 96376; 99284; C1751; J3010; J7030; 82040; 82247; 82310; 82374; 82435; 82565; 82947; 84075; 84132; 84155; 84295; 84450; 84460; 84520

== ENCOUNTER → 2018-05-24 | Outpatient (CLI) | payer MEDICARE, MEDICAID ==
[2017-12-26 12:06] VITALS: BMI 48.4
== END ==
LOC: AMB 17:51
PROVIDERS: ATTEND Nurse Practitioner
DX: K81.0 Acute cholecystitis (principal)
CPT/HCPCS: A0425; A0426

== ENCOUNTER → 2018-05-24 | Outpatient (CLI) | payer MEDICARE, MEDICAID ==
[2017-12-26 12:06] VITALS: BMI 48.4
== END ==
LOC: AMB 11:21
PROVIDERS: ATTEND Nurse Practitioner
DX: R53.1 Weakness (principal); R73.9 Hyperglycemia, unspecified
CPT/HCPCS: A0425; A0429

== ENCOUNTER 2018-07-10 12:23 | Inpatient (IN) | payer MEDICARE, MEDICAID ==
[2017-12-26 12:06] VITALS: Wt 151.8 kg
[2018-07-10] VITALS (34 sets, daily range): BP systolic 97–142; BP diastolic 50–91
[~2018-07-10 12:23] MED LIST changes: -CEFT1VIA57 IV; +CEFT1VIA63 IV; -METF-411 PO; -METF-421 PO; +METF-450 PO; +METF-452 PO
--- NOTE | 2018-07-10 12:30 | ER Report ---
History and Physical Time Seen By MD: 12:30 HPI/ROS CHIEF COMPLAINT: Possible pneumonia HISTORY OF PRESENT ILLNESS: This is a 58-year-old male who presents to the emergency department for concerns of pneumonia. This patient is well-known to the emergency department. Patient was evaluated in the ED 0.1 month ago, was transferred to [facility] for sepsis. Patient was at a rehabilitation center and [place], was recently discharged back to [place]. Patient states that since last Abel he's not been feeling well, aches and chills. No nausea or vomiting. No chest pain or shortness of breath. No headaches. REVIEW OF SYSTEMS: Constitutional: As above. Eyes: No discharge. ENT: No sore throat. Cardiovascular: No chest pain, no palpitations. Respiratory: No cough, no shortness of breath. Gastrointestinal: No abdominal pain, no vomiting. Genitourinary: No hematuria. Musculoskeletal: No back pain. Skin: No rashes. Neurological: No headache. Allergies: Coded Allergies: perflutren (Verified Allergy, Severe, Respiratory Arrest, 05/23/18) vancomycin (Verified Allergy, Severe, Respiratory arrest due to bronchospa sm, 05/23/18) Respiratory arrest due to bronchospasm ciprofloxacin (Verified Allergy, Intermediate, TINGLING, 05/23/18) clindamycin (Verified Allergy, Intermediate, RASH, 05/23/18) amoxicillin (Verified Adverse Reaction, Mild, N/V/D, 05/23/18) 07/2017: Pt tolerated Unasyn without difficulty clavulanic acid (Verified Adverse Reaction, Mild, N/V/D, 05/23/18) Uncoded Allergies: contrast definity (Allergy, Severe, MENTAL STATUS CHANGES, 08/15/17) went unresponsive Home Meds Active Scripts Ferrous Sulfate (FERROUS SULFATE) 325 Mg Tablet, 325 MG PO BID for 30 Days, #60 TAB Prov:DANIAL RAMIREZ DO 05/11/18 Oxybutynin Chloride (OXYBUTYNIN CHLORIDE) 5 Mg Tablet, 5 MG PO QDAY for 14 Days, #14 TAB Prov:DANIAL RAMIREZ DO 05/11/18 Ondansetron (ONDANSETRON ODT) 4 Mg Tab.rapdis, 1 TAB PO Q12H PRN for NAUSEA, #30 TAB 1 Refill Prov:JOHN HERNADEZ MD 05/09/18 Atorvastatin Calcium (ATORVASTATIN CALCIUM) 40 Mg Tablet, 1 TAB PO QHS, #90 TAB 1 Refill Prov:LENIN ANTONIO APRN 02/21/18 Amitriptyline Hcl (AMITRIPTYLINE HCL) 25 Mg Tablet, 25 MG PO QHS, #90 TAB 1 Refill Prov:LENIN ANTONIO APRN 01/30/18 [Ostomy Supplies] No Conflict Check Prov:LENIN ANTONIO APRN 12/21/17 Metoprolol Succinate (TOPROL XL) 50 Mg Tab.er.24h, 0.5 TAB PO QDAY, #30 TAB 5 Refills Prov:LENIN ANTONIO APRN 03/20/17 Reported Medications Insulin Lispro 100 Un/Ml Pen (HUMALOG 3 ML PEN) 100 Unit/1 Ml Insuln.pen, 100 UNIT SQ SS, DIS.SYR 07/10/18 Hum Insulin NPH/Reg Insulin Hm (Humulin 70/30 Kwikpen) 100 Unit/1 Ml Insuln.pen, 60 UNITS SC QAM 07/10/18 Hum Insulin NPH/Reg Insulin Hm (Humulin 70/30 Kwikpen) 100 Unit/1 Ml Insuln.pen, 55 UNIT SC HS 07/10/18 Zolpidem Tartrate (AMBIEN) 5 Mg Tablet, 1 TAB PO QHS, TAB 07/10/18 Multivitamin With Minerals (MULTIPLE VITAMIN) 1 Each Tablet, 1 EACH PO QAM, TAB 07/10/18 Vitamin B Complex (VITAMIN B COMPLEX) 1 Each Capsule, 1 EACH PO QAM, CAPSULE 07/10/18 Miconazole Nitrate (Desenex) 2 % Powder, 85 GM TOP BID 07/10/18 Melatonin (MELATONIN) 3 Mg Tablet, 6 MG PO QHS 07/10/18 Magnesium Chloride (MAG64) 64 Mg Tablet.er, 128 MG PO BID 07/10/18 Metformin Hcl (METFORMIN HCL) 500 Mg Tablet, 2 TAB PO BID, TAB 07/10/18 Trazodone Hcl (TRAZODONE HCL) 50 Mg Tablet, 50 MG PO QHS 07/10/18 Citalopram Hydrobromide (CELEXA) 20 Mg Tablet, 20 MG PO QAM, #5 TAB 07/10/18 Famotidine (FAMOTIDINE) 20 Mg Tablet, 20 MG PO BID, TAB 07/10/18 Diphenhydramine Hcl (DIPHENHYDRAMINE HCL) 25 Mg Tablet, 25 MG PO QHS, TAB 07/10/18 Cholestyramine (With Sugar) (QUESTRAN PACKET) 4 Gm Powd.pack, 4 GM PO BIDBS 07/10/18 Furosemide (FUROSEMIDE) 40 Mg Tablet, 2 TAB PO QAM, TAB 07/10/18 Oxycodone Hcl (OXYCODONE HCL) 5 Mg Tablet, 20 MG PO Q6H PRN for PAIN 07/10/18 Gabapentin (GABAPENTIN) 300 Mg Capsule, 600 MG PO DAILY, CAPSULE take @ 1500 07/10/18 Gabapentin (GABAPENTIN) 300 Mg Capsule, 1200 MG PO BID, CAPSULE 07/10/18 Cefadroxil Hydrate (CEFADROXIL) 500 Mg Capsule, 500 MG PO BID, CAPSULE 05/09/18 Pantoprazole Sodium (PANTOPRAZOLE SODIUM) 40 Mg Tablet.dr, 40 MG PO QDAY, TAB.SR 05/08/18 Oxygen (OXYGEN) Inha, 2 L INH, L 12/26/17 Aspirin (ASPIRIN) 81 Mg Tab.chew, 81 MG PO QDAY, TAB.CHEW 12/02/17 Discontinued Reported Medications Insulin Lispro 100 Un/Ml Pen (HUMALOG 3 ML PEN) 100 Unit/1 Ml Insuln.pen, 30 UNIT SQ TIDAC, DIS.SYR 07/10/18 Discontinued Scripts Trazodone Hcl (TRAZODONE HCL) 50 Mg Tablet, 25-50 MG PO QHS PRN for insomnia for 30 Days, #30 TAB Prov:DANIAL RAMIREZ DO 05/11/18 Duloxetine Hcl (CYMBALTA) 30 Mg Capsule.dr, 30 MG PO QDAY, #30 CAP Prov:JOHN HERNADEZ MD 05/09/18 Melatonin (MELATONIN) 3 Mg Tablet, 3 MG PO QHS, #30 TAB Prov:JOHN HERNADEZ MD 05/09/18 Insulin Glargine 100 Un/Ml Pen (LANTUS SOLOSTAR PEN) 100 Unit/1 Ml Insuln.pen, 25-60 UNIT SUBQ DIRECTED, #5 UNITS Take 60 u sq q am and 25u sq q pm Prov:JOHN HERNADEZ MD 05/09/18 Insulin Aspart 100 Un/Ml Pen (NOVOLOG FLEXPEN) 100 Unit/1 Ml Insuln.pen, 30 UNIT SUBQ TIDAC, #1 VIAL Prov:JOHN HERNADEZ MD 05/09/18 Insulin Glargine 100 Un/Ml Pen (LANTUS SOLOSTAR PEN) 100 Unit/1 Ml Insuln.pen, 72 UNIT SUBQ QAM, #3 ML Prov:JOHN HERNADEZ MD 05/09/18 Insulin Glargine 100 Un/Ml Pen (LANTUS SOLOSTAR PEN) 100 Unit/1 Ml Insuln.pen, 65 UNIT SUBQ QHS, #3 ML Prov:JOHN HERNADEZ MD 05/09/18 Insulin Aspart 100 Un/Ml Pen (NOVOLOG FLEXPEN) 100 Unit/1 Ml Insuln.pen, 30 UNIT SUBQ TIDAC, #3 ML Prov:JOHN HERNADEZ MD 05/09/18 Gabapentin (GABAPENTIN) 600 Mg Tablet, 600 MG PO TID, #270 TAB 1 Refill Prov:LENIN ANTONIO APRN 02/05/18 Warfarin Sodium (COUMADIN) 5 Mg Tablet, 1-1.5 TAB PO QDAY@13, #45 TAB 5 Refills 1.5 tabs every monday and 1 tab all other days Prov:LENIN ANTONIO APRN 01/31/18 Furosemide (FUROSEMIDE) 40 Mg Tablet, 40 MG PO QDAY, #30 TAB Prov:RODRIGO BARRIGA DO 01/11/18 Magnesium Oxide (MAGNESIUM OXIDE) 400 Mg Tablet, 1 TAB PO DAILY, #180 TAB 2 Refills Prov:JOHN HERNADEZ MD 12/21/17 NYSTATIN 083751 UNT/ML Topical Cream (NYSTATIN 806566 UNT/ML Topical Cream) 15 Gm Cream..g., 1 JAEL TP BID, #120 GM 2 Refills Apply to yeast infection twice daily until resolved then treat the area once daily M, W, F Prov:LENIN ANTONIO APRN-Mario 12/19/17 Past Medical/Surgical History The patient has a past medical and surgical history of migraines, heart attack, angina, congestive heart failure, DVTs, pulmonary emboli, hypercholesterolemia, obstructive sleep apnea, GERD, dictating fasciitis, fistula, frequent urinary tract infections, spina bifida, fractures of fingers and toes, chronic back pain, allergic rhinitis, wears glasses, insulin-dependent diabetic, MRSA, depression, anxiety, shunt for hydrocephalus, colostomy, foot surgery, PICC line's, chronic unhealing wounds. Reviewed Nurses Notes: Yes Hx Smoking: No Smoking Status: Never Smoker Exposure to Second Hand Smoke?: Yes Hx Substance Use Disorder: No Hx Alcohol Use: Yes Constitutional Vital Sign - Last 24 Hours 07/10/18 07/10/18 07/10/18 07/10/18 12:23 12:32 12:32 12:33 Temp 98.3 Pulse 118 108 Resp 16 B/P (MAP) 137/59 (85) 137/59 Pulse Ox 95 O2 Delivery Nasal Cannula O2 Flow Rate 3.0 07/10/18 07/10/18 07/10/18 07/10/18 12:53 13:10 13:23 13:30 Pulse 103 100 Resp 10 12 B/P (MAP) 134/62 (86) 129/79 (96) Pulse Ox 97 89 O2 Delivery Nasal Cannula Nasal Cannula O2 Flow Rate 3 3 07/10/18 07/10/18 07/10/18 13:35 14:00 14:05 Pulse 99 101 Resp 15 16 B/P (MAP) 138/101 (113) Pulse Ox 95 93 O2 Delivery Nasal Cannula Nasal Cannula O2 Flow Rate 2 2 Physical Exam General Appearance: The patient is alert, has no immediate need for airway protection and no signs of toxicity, pale. Eyes: Pupils equal and round no pallor or injection. ENT, Mouth: Mucous membranes are dry. Respiratory: There are no retractions, lungs are clear to auscultation. Cardiovascular: Regular rate and rhythm, no murmurs, clicks or rubs. Gastrointestinal: Abdomen is very round, soft and non tender, no masses, distant sounds normal. Neurological: Alert and oriented 4. Moving all extremities. Following all commands. No focal neuro deficits. Skin: Some sized ulceration to the left gluteal fold with some granulation tissue, large burrowing wound to the coccyx, surrounding erythema no signs of cellulitis. Musculoskeletal: Neck is supple non tender. Extremities are nontender, nonswollen and have full range of motion. DIFFERENTIAL DIAGNOSIS: After history and physical exam differential diagnosis was considered for urosepsis, upper respiratory infection, necrotizing fasciitis and cellulitis. Medical Decision Making Data Points Result Diagram: 07/10/18 3518 07/10/18 1627 Laboratory Hematology Test 07/10/18 12:45 Red Blood Count 4.36 M/uL (4.00-5.60) Mean Corpuscular Volume 75.9 fL (80.0-96.0) Mean Corpuscular Hemoglobin 22.8 pg (26.0-33.0) Mean Corpuscular Hemoglobin Concent 30.0 g/dL (32.0-36.0) Red Cell Distribution Width 25.8 % (11.5-14.5) Mean Platelet Volume 7.6 fL (7.2-11.1) Neutrophils (%) (Auto) 93.0 % (39.4-72.5) Lymphocytes (%) (Auto) 2.1 % (17.6-49.6) Monocytes (%) (Auto) 4.6 % (4.1-12.4) Eosinophils (%) (Auto) 0.2 % (0.4-6.7) Basophils (%) (Auto) 0.1 % (0.3-1.4) Nucleated RBC Relative Count (auto) 0.0 /100WBC Neutrophils # (Auto) 11.1 K/uL (2.0-7.4) Lymphocytes # (Auto) 0.2 K/uL (1.3-3.6) Monocytes # (Auto) 0.5 K/uL (0.3-1.0) Eosinophils # (Auto) 0.0 K/uL (0.0-0.5) Basophils # (Auto) 0.0 K/uL (0.0-0.1) Nucleated RBC Absolute Count (auto) 0.00 K/uL Prothrombin Time 26.7 seconds (12.0-14.4) Prothromb Time International Ratio 2.41 Activated Partial Thromboplast Time 39 seconds (23-35) Urine Color Yellow Urine Clarity Cloudy Urine pH 5.0 pH (4.8-9.5) Urine Specific [place] 1.010 Urine Protein 100 mg/dL (NEGATIVE) Urine Glucose (UA) >1000 mg/dL (NEGATIVE) Urine Ketones Trace mg/dL (NEGATIVE) Urine Blood Large (NEGATIVE) Urine Nitrite Positive (NEGATIVE) Urine Bilirubin Moderate (NEGATIVE) Urine Urobilinogen 0.2 mg/dL (0.2-1.9) Urine Leukocyte Esterase Moderate (NEGATIVE) Urine RBC 64 /HPF (0-2/HPF) Urine WBC 258 /HPF (0-5/HPF) Urine WBC Clumps Few /HPF Urine Squamous Epithelial Cells Moderate /LPF (NONE-FEW) Urine Bacteria Few /HPF (NONE-FEW) Urine Mucus None /HPF (NONE-FEW) Urine Yeast (Budding) Moderate /HPF Total Bilirubin 0.5 mg/dl (0.2-1.3) Aspartate Amino Transf (AST/SGOT) 19 U/L (0-35) Alanine Aminotransferase (ALT/SGPT) 27 U/L (0-56) Alkaline Phosphatase 143 U/L (0-126) Troponin I < 0.012 ng/ml Total Protein 6.9 g/dl (6.3-8.2) Albumin 3.5 g/dl (3.5-5.0) Chemistry Test 07/10/18 12:45 White Blood Count 11.9 k/uL (4.5-11.0) Red Blood Count 4.36 M/uL (4.00-5.60) Hemoglobin 9.9 g/dL (14.0-18.0) Hematocrit 33.1 % (42.0-52.0) Mean Corpuscular Volume 75.9 fL (80.0-96.0) Mean Corpuscular Hemoglobin 22.8 pg (26.0-33.0) Mean Corpuscular Hemoglobin Concent 30.0 g/dL (32.0-36.0) Red Cell Distribution Width 25.8 % (11.5-14.5) Platelet Count 204 K/uL (150-450) Mean Platelet Volume 7.6 fL (7.2-11.1) Neutrophils (%) (Auto) 93.0 % (39.4-72.5) Lymphocytes (%) (Auto) 2.1 % (17.6-49.6) Monocytes (%) (Auto) 4.6 % (4.1-12.4) Eosinophils (%) (Auto) 0.2 % (0.4-6.7) Basophils (%) (Auto) 0.1 % (0.3-1.4) Nucleated RBC Relative Count (auto) 0.0 /100WBC Neutrophils # (Auto) 11.1 K/uL (2.0-7.4) Lymphocytes # (Auto) 0.2 K/uL (1.3-3.6) Monocytes # (Auto) 0.5 K/uL (0.3-1.0) Eosinophils # (Auto) 0.0 K/uL (0.0-0.5) Basophils # (Auto) 0.0 K/uL (0.0-0.1) Nucleated RBC Absolute Count (auto) 0.00 K/uL Prothrombin Time 26.7 seconds (12.0-14.4) Prothromb Time International Ratio 2.41 Activated Partial Thromboplast Time 39 seconds (23-35) Urine Color Yellow Urine Clarity Cloudy Urine pH 5.0 pH (4.8-9.5) Urine Specific [place] 1.010 Urine Protein 100 mg/dL (NEGATIVE) Urine Glucose (UA) >1000 mg/dL (NEGATIVE) Urine Ketones Trace mg/dL (NEGATIVE) Urine Blood Large (NEGATIVE) Urine Nitrite Positive (NEGATIVE) Urine Bilirubin Moderate (NEGATIVE) Urine Urobilinogen 0.2 mg/dL (0.2-1.9) Urine Leukocyte Esterase Moderate (NEGATIVE) Urine RBC 64 /HPF (0-2/HPF) Urine WBC 258 /HPF (0-5/HPF) Urine WBC Clumps Few /HPF Urine Squamous Epithelial Cells Moderate /LPF (NONE-FEW) Urine Bacteria Few /HPF (NONE-FEW) Urine Mucus None /HPF (NONE-FEW) Urine Yeast (Budding) Moderate /HPF Total Bilirubin 0.5 mg/dl (0.2-1.3) Aspartate Amino Transf (AST/SGOT) 19 U/L (0-35) Alanine Aminotransferase (ALT/SGPT) 27 U/L (0-56) Alkaline Phosphatase 143 U/L (0-126) Troponin I < 0.012 ng/ml Total Protein 6.9 g/dl (6.3-8.2) Albumin 3.5 g/dl (3.5-5.0) Coagulation Test 07/10/18 12:45 Prothrombin Time 26.7 seconds Prothromb Time International Ratio 2.41 Activated Partial Thromboplast Time 39 seconds Urinalysis Test 07/10/18 12:45 Urine Color Yellow Urine Clarity Cloudy Urine pH 5.0 pH (4.8-9.5) Urine Specific [place] 1.010 Urine Protein 100 mg/dL (NEGATIVE) Urine Glucose (UA) >1000 mg/dL (NEGATIVE) Urine Ketones Trace mg/dL (NEGATIVE) Urine Blood Large (NEGATIVE) Urine Nitrite Positive (NEGATIVE) Urine Bilirubin Moderate (NEGATIVE) Urine Urobilinogen 0.2 mg/dL (0.2-1.9) Urine Leukocyte Esterase Moderate (NEGATIVE) Urine RBC 64 /HPF (0-2/HPF) Urine WBC 258 /HPF (0-5/HPF) Urine WBC Clumps Few /HPF Urine Squamous Epithelial Cells Moderate /LPF (NONE-FEW) Urine Bacteria Few /HPF (NONE-FEW) Urine Mucus None /HPF (NONE-FEW) Urine Yeast (Budding) Moderate /HPF EKG/Imaging EKG Interpretation 12 lead EKG: Time of EKG 1251. Rhythm: Sinus tachycardia, ventricular rate 103 BPM. [place]: normal QRS: normal ST segments: No ST depression or elevation identified. Imaging CHEST SINGLE AP COMPARISONS: 2 view chest dated May 24, 2018 ADDITIONAL PERTINENT HISTORY: Increased dyspnea FINDINGS: Cardiomediastinal silhouette: Negative. Pulmonary vasculature: Negative. Lung sy: Negative. Pleural spaces: Negative. Osseous structures: Negative. Surrounding soft tissues: Negative. IMPRESSION: No evidence of acute cardiopulmonary disease. Report Dictated By: Rusty Vasquez MD at 07/10/2018 2:46 PM Report E-Signed By: Rusty Vasquez MD at 07/10/2018 2:47 PM WSN:[id number] ED Course/Re-evaluation Clinical Indication for ER IV: Hydration, IV Access ED Course The patient was admitted to a room. A history of physical or pain. Differential diagnoses were considered. An IV was started. A CBC, CMP lactate and blood cultures were obtained. Liz from wound care did come down and evaluate the pa tient's wounds on his buttock and his coccyx. CBC showing white count 11.9, H&H 9.9 and 33.1. Sodium 126, glucose 459. Lactate of 3.9. Urine was collected from the however on the catheter,Urine showing glucose, protein, large blood, positive nitrates, urine bilirubin, leukocyte esterase, large urine white blood cells. Patient was given a 1 L normal saline bolus followed by a 1 L saline at 250 mils an hour. No acute findings on EKG. Syncope chest x-ray negative for any acute cardiopulmonary process. Patient was also started on a insulin drip, and 1 g of cefepime. I reviewed the laboratory studies and chest x-ray with patient. I did speak with Dr. Khoa Hernadez regarding the patient's case is notable, he has accepted the patient into the ICU for euro sepsis. 07/10/2018 1:54:07 pm See Liz PT wound care note for the wound care information on the buttock and L gluteal fold. 07/10/2018 2:14:21 pm I did speak with Dr. Khoa Hernadez regarding the patient's case, patient will be admitted to the ICU for urosepsis and hyponatremia. Decision to Disposition Date: Jul 10, 2018 Decision to Disposition Time: 14:14 Depart Departure Latest Vital Signs Vital Signs Date Time Temp Pulse Resp B/P (MAP) Pulse Ox O2 Delivery O2 Flow Rate FiO2 07/10/18 14:05 101 16 93 Nasal Cannula 2 07/10/18 14:00 138/101 (113) 07/10/18 12:33 98.3 Impression: Primary Impression: Sepsis Additional Impressions: Hyponatremia Hyperglycemia Condition: Condition Unchanged Disposition: Admitted from ER Referrals: LENIN ANTONIO APRN [employer]ELOPER-C (PCP) Problem Qualifiers Primary Impression: Sepsis Sepsis type: sepsis due to unspecified organism Qualified Codes: A41.9 - Sepsis, unspecified organism TWIN REYES INTER[employer]IVE [employer] DEVELOPER-BC Jul 10, 2018 12:30
[2018-07-10] MEDS ORDERED: GABA-549 PO ×2 (12:45)
[2018-07-10] MEDS ORDERED: OXYC5TAB38 PO (12:47)
[2018-07-10] MEDS ORDERED: HYDROMORPHONE HCL 1 MG/ML SYRINGE IVP ONE (12:55)
[2018-07-10] MEDS ORDERED: NS(*) 0.9% 1000 ML BAG 1,000 ML IV ONE ×3 (12:55→14:25)
[2018-07-10 13:04] LABS: PLATELET COUNT, AUTOMATED 204 K/uL (150-450)
[2018-07-10 13:09] LABS: INR 2.41
[2018-07-10] MEDS ORDERED: CEFEPIME HCL 1 GM VIAL IVP ONE (13:50)
[2018-07-10] MEDS ORDERED: INS HUM REG* 100 U/ML(ER ONLY) 100 UNIT in NS(*) 0.9% 100 ML BAG 99 ML IVPB ONE (13:50)
--- NOTE | 2018-07-10 14:10 | EKG ---
FACILITY: [facility] [place] PATIENT NAME: GEORGE ROY : [id number] MR: [id number] V: [id number] EXAM DATE: ORDERING PHYSICIAN: TWIN REYES TECHNOLOGIST: JANE Garcias Reason : SOB Blood Pressure : / mmHG Vent. Rate : 103 BPM Atrial Rate : 103 BPM P-R Int : 138 ms QRS Dur : 084 ms QT Int : 352 ms P-R-T Axes : 059 085 065 degrees QTc Int : 461 ms Sinus tachycardia No acute appearing findings When compared with ECG of 24-MAY-2018 12:02, No significant change was found Confirmed by ANTHONY DUQUE ([id number]) on 07/10/2018 2:41:59 PM Referred By: Confirmed By:ANTHONY DUQUE
--- NOTE | 2018-07-10 14:52 | RADIOLOGY IMAGING REPORT ---
FACILITY: [facility] PATIENT NAME: Rodrigue Phillips : 1960 MR: [id number] V: [id number] EXAM DATE: ORDERING PHYSICIAN: TWIN REYES TECHNOLOGIST: Location: [facility] [place] Patient: Rodrigue Phillips : 1960 Visit/Account:[id number] Date of Sevice: 07/10/2018 CHEST SINGLE AP COMPARISONS: 2 view chest dated May 24, 2018 ADDITIONAL PERTINENT HISTORY: Increased dyspnea FINDINGS: Cardiomediastinal silhouette: Negative. Pulmonary vasculature: Negative. Lung sy: Negative. Pleural spaces: Negative. Osseous structures: Negative. Surrounding soft tissues: Negative. IMPRESSION: No evidence of acute cardiopulmonary disease. Report Dictated By: Rusty Vasquez MD at 07/10/2018 2:46 PM Report E-Signed By: Rusty Vasquez MD at 07/10/2018 2:47 PM WSN:[id number]
[2018-07-10] MEDS ORDERED: PHYTONADIONE 10 MG/ML AMP SC ONE (16:00)
--- NOTE | 2018-07-10 16:08 | History & Physical ---
History of Present Illness Chief Complaint "I'm sick again" History of Present Illness 58yo male with extensive PMHx including spina bifida with near complete lower extremity paraplegia, type 2 DM, previous DVT/PE, recurrent MSSA and MRSA bacteremia due to presumed infected CSF shunt, recurrent UTIs due to indwelling Muñoz cath for neurogenic bladder. He recently returned home from a hospitalization and rehabilitation stay at [facility] - he has been home only four days. He states he had onset of fevers/poor appetite/generalized weakness/mild diffuse abdominal discomfort almost immediately upon returning home. He reports some dyspnea, but no cough. He has been having wound care for chronic decubitus ulcers on his left ischial area/anal area. He reports he did not take his usual medications for the past few days, including his insulin. He was evaluated in the ER and found to have evidence of dehydration, severe hyperglycemia without ketosis, elevated WBC count, elevated lactate, pyuria. His CXR was unremarkable. He was recommended for admission. History Problems: (1) Noncompliance Status: Chronic (2) Pneumonia Status: Resolved (3) Septic pulmonary embolism Status: Resolved (4) Decubitus ulcer Status: Chronic (5) Hypomagnesemia Status: Resolved (6) Candidal intertrigo Status: Chronic (7) Sepsis due to Staphylococcus aureus Status: Acute (8) ANEMIA, UNSPECIFIED Status: Chronic (9) Recurrent bacteremia Status: Chronic (10) Type 2 diabetes mellitus Status: Chronic (11) Spina bifida Status: Chronic (12) Neurogenic bladder Status: Chronic (13) THOMAS (obstructive sleep apnea) Status: Chronic (14) Temporal arteritis syndrome Status: Chronic (15) Hx of deep venous thrombosis Status: Chronic (16) Hx of necrotising fasciitis Status: Resolved (17) Obesity, morbid, BMI 40.0-49.9 Status: Chronic (18) Chronic indwelling Muñoz catheter Status: Chronic (19) CAD (coronary artery disease) Status: Chronic (20) Chronic pain Status: Chronic (21) Hypertension Status: Chronic (22) S/P colostomy Status: Chronic (23) S/P ACTIONSCRIPT DEVELOPER shunt Status: Chronic (24) History of skin graft Status: Chronic (25) Status post cystoscopy Status: Chronic Home Meds Active Scripts Ferrous Sulfate (FERROUS SULFATE) 325 Mg Tablet, 325 MG PO BID for 30 Days, #60 TAB Prov:DANIAL RAMIREZ DO 05/11/18 Oxybutynin Chloride (OXYBUTYNIN CHLORIDE) 5 Mg Tablet, 5 MG PO QDAY for 14 Days, #14 TAB Prov:DANIAL RAMIREZ DO 05/11/18 Trazodone Hcl (TRAZODONE HCL) 50 Mg Tablet, 25-50 MG PO QHS PRN for insomnia for 30 Days, #30 TAB Prov:DANIAL RAMIREZ 05/11/18 Duloxetine Hcl (CYMBALTA) 30 Mg Capsule.dr, 30 MG PO QDAY, #30 CAP Prov:JOHN DUQUE MD 05/09/18 Melatonin (MELATONIN) 3 Mg Tablet, 3 MG PO QHS, #30 TAB Prov:JOHN DUQUE MD 05/09/18 Insulin Glargine 100 Un/Ml Pen (LANTUS SOLOSTAR PEN) 100 Unit/1 Ml Insuln.pen, 25-60 UNIT SUBQ DIRECTED, #5 UNITS Take 60 u sq q am and 25u sq q pm Prov:JOHN DUQUE MD 05/09/18 Insulin Aspart 100 Un/Ml Pen (NOVOLOG FLEXPEN) 100 Unit/1 Ml Insuln.pen, 30 UNIT SUBQ TIDAC, #1 VIAL Prov:JOHN DUQUE MD 05/09/18 Ondansetron (ONDANSETRON ODT) 4 Mg Tab.rapdis, 1 TAB PO Q12H PRN for NAUSEA, #30 TAB 1 Refill Prov:JOHN DUQUE MD 05/09/18 Insulin Glargine 100 Un/Ml Pen (LANTUS SOLOSTAR PEN) 100 Unit/1 Ml Insuln.pen, 72 UNIT SUBQ QAM, #3 ML Prov:JOHN DUQUE MD 05/09/18 Insulin Glargine 100 Un/Ml Pen (LANTUS SOLOSTAR PEN) 100 Unit/1 Ml Insuln.pen, 65 UNIT SUBQ QHS, #3 ML Prov:JOHN DUQUE MD 05/09/18 Insulin Aspart 100 Un/Ml Pen (NOVOLOG FLEXPEN) 100 Unit/1 Ml Insuln.pen, 30 UNIT SUBQ TIDAC, #3 ML Prov:JOHN DUQUE MD 05/09/18 Atorvastatin Calcium (ATORVASTATIN CALCIUM) 40 Mg Tablet, 1 TAB PO QHS, #90 TAB 1 Refill Prov:LENIN ANTONIO APRN 02/21/18 Amitriptyline Hcl (AMITRIPTYLINE HCL) 25 Mg Tablet, 25 MG PO QHS, #90 TAB 1 Refill Prov:LENIN ANTONIO APRN 01/30/18 Furosemide (FUROSEMIDE) 40 Mg Tablet, 40 MG PO QDAY, #30 TAB Prov:RODRIGO BARRIGA DO 01/11/18 Magnesium Oxide (MAGNESIUM OXIDE) 400 Mg Tablet, 1 TAB PO DAILY, #180 TAB 2 Refills Prov:JOHN DUQUE MD 12/21/17 [Ostomy Supplies] No Conflict Check Prov:LENIN ANTONIO APRN 12/21/17 NYSTATIN 809201 UNT/ML Topical Cream (NYSTATIN 643987 UNT/ML Topical Cream) 15 Gm Cream..g., 1 JAEL TP BID, #120 GM 2 Refills Apply to yeast infection twice daily until resolved then treat the area once daily M, W, F Prov:LENIN ANTONIO APRN 12/19/17 Metoprolol Succinate (TOPROL XL) 50 Mg Tab.er.24h, 0.5 TAB PO QDAY, #30 TAB 5 Refills Prov:LENIN ANTONIO APRN 03/20/17 Reported Medications Oxycodone Hcl (OXYCODONE HCL) 5 Mg Tablet, 20 MG PO BID 07/10/18 Gabapentin (GABAPENTIN) 300 Mg Capsule, 600 MG PO HS, CAPSULE 07/10/18 Gabapentin (GABAPENTIN) 300 Mg Capsule, 1200 MG PO BID, CAPSULE 07/10/18 Cefadroxil Hydrate (CEFADROXIL) 500 Mg Capsule, 500 MG PO BID, CAPSULE 05/09/18 Pantoprazole Sodium (PANTOPRAZOLE SODIUM) 40 Mg Tablet.dr, 40 MG PO QDAY, TAB.SR 05/08/18 Oxygen (OXYGEN) Inha, 2 L INH, L 12/26/17 Aspirin (ASPIRIN) 81 Mg Tab.chew, 81 MG PO QDAY, TAB.CHEW 12/02/17 Discontinued Scripts Gabapentin (GABAPENTIN) 600 Mg Tablet, 600 MG PO TID, #270 TAB 1 Refill Prov:LENIN ANTONIO APRN 02/05/18 Warfarin Sodium (COUMADIN) 5 Mg Tablet, 1-1.5 TAB PO QDAY@13, #45 TAB 5 Refills 1.5 tabs every monday and 1 tab all other days Prov:LAVELLE ANTONIOYN ANGELLA MILL OPERATOR HEAD-C 01/31/18 Allergies: Coded Allergies: perflutren (Verified Allergy, Severe, Respiratory Arrest, 05/23/18) vancomycin (Verified Allergy, Severe, Respiratory arrest due to bronchospasm, 05/23/18) Respiratory arrest due to bronchospasm ciprofloxacin (Verified Allergy, Intermediate, TINGLING, 05/23/18) clindamycin (Verified Allergy, Intermediate, RASH, 05/23/18) amoxicillin (Verified Adverse Reaction, Mild, N/V/D, 05/23/18) 07/2017: Pt tolerated Unasyn without difficulty clavulanic acid (Verified Adverse Reaction, Mild, N/V/D, 05/23/18) Uncoded Allergies: contrast definity (Allergy, Severe, MENTAL STATUS CHANGES, 08/15/17) went unresponsive Patient History: FH: HTN (hypertension) FATHER BROTHER OR SISTER FH: bladder cancer FATHER FH: diabetes mellitus FATHER MOTHER BROTHER OR SISTER BROTHER OR SISTER IN (myocardial infarction) FATHER Hx Smoking: No Smoking Status: Never Smoker Exposure to Second Hand Smoke?: Yes Caffeine Intake: Tea Caffeine/Cups Per Day: 4-5 Hx Alcohol Use: Yes Hx Substance Use Disorder: No Social Drug Use: Never Review of Systems Constitutional: Fever, Chills Neurological: Weakness Cardiovascular: No Chest Pain, No Palpitations Respiratory: Shortness of Breath; No Cough Gastrointestinal: No Nausea, No Vomiting, No Diarrhea, No Hematemesis, No Hematochezia, No Melena; Abdominal Pain Genitourinary: Other (indwelling Muñoz cath) Musculoskeletal: Pain Psychiatric: Depression Exam Vital Signs Vital Signs Date Time Temp Pulse Resp B/P (MAP) Pulse Ox O2 Delivery O2 Flow Rate FiO2 07/10/18 15:45 106 26 100/78 (85) 94 07/10/18 15:17 98.7 Nasal Cannula 2.0 General Appearance: Alert, Awake Neuro: Other (chronic lower extremity weakness/atrophy bilaterally) Eyes: PERRLA ENT: Oropharynx Clear Neck: No Masses, Other (palpable shunt right neck) Cardiovascular: Other (Regular slightly tachycardic distant tones no obvious murmur) Respiratory: Clear to Auscultation Chest: No Tenderness GI: Other (obese/soft/tenderness reported diffusely with deep palpation/BS pres ent/ostomy present LUQ with minimal stool present) : No CVA Tenderness Lymph: No Adenopathy Extremities: Warm, Perfused, Edema Integumentary: Other (shallow ulcer over left ischial area/anal area with apparent irritated mucosal tissue present/posterior scrotum irritated with some apparent small abrasion like lesions) Psych: Alert & Oriented X3 Medical Decision Making Data Points Result Diagram: 07/10/18 1245 07/10/18 1245 Item Value Date Time Albumin 3.5 g/dl 07/10/18 1245 Total Protein 6.9 g/dl 07/10/18 1245 Troponin I < 0.012 ng/ml 07/10/18 1245 Alkaline Phosphatase 143 U/L H 07/10/18 1245 Alanine Aminotransferase (ALT/SGPT) 27 U/L 07/10/18 1245 Aspartate Amino Transf (AST/SGOT) 19 U/L 07/10/18 1245 Total Bilirubin 0.5 mg/dl 07/10/18 1245 Calcium Level 8.5 mg/dl 07/10/18 1245 Lactate 4.9 mmol/L *H 07/10/18 1245 Activated Partial Thromboplast Time 39 seconds H 07/10/18 1245 Prothromb Time International Ratio 2.41 07/10/18 1245 Prothrombin Time 26.7 seconds H 07/10/18 1245 EKG / Imaging EKG Interpretation PATIENT NAME: RODRIGUE PHILLIPS : [id number] MR: [id number] V: [id number] EXAM DATE: ORDERING PHYSICIAN: TWIN REYES TECHNOLOGIST: JANE Garcias Reason : SOB Blood Pressure : / mmHG Vent. Rate : 103 BPM Atrial Rate : 103 BPM P-R Int : 138 ms QRS Dur : 084 ms QT Int : 352 ms P-R-T Axes : 059 085 065 degrees QTc Int : 461 ms Sinus tachycardia No acute appearing findings When compared with ECG of 24-MAY-2018 12:02, No significant change was found Confirmed by ANTHONY DUQUE ([id number]) on 07/10/2018 2:41:59 PM Referred By: Confirmed By:ANTHONY DUQUE Imaging PATIENT NAME: Rodrigue Phillips : 1960 MR: [id number] V: [id number] EXAM DATE: ORDERING PHYSICIAN: TWIN REYES TECHNOLOGIST: [place] [facility] [place]: Rodrigue Phillips : 1960 Visit/Account:[id number] Date of Sevice: 07/10/2018 CHEST SINGLE AP COMPARISONS: 2 view chest dated May 24, 2018 ADDITIONAL PERTINENT HISTORY: Increased dyspnea FINDINGS: Cardiomediastinal silhouette: Negative. Pulmonary vasculature: Negative. Lung sy: Negative. Pleural spaces: Negative. Osseous structures: Negative. Surrounding soft tissues: Negative. IMPRESSION: No evidence of acute cardiopulmonary disease. Report Dictated By: Rusty Vasquez MD at 07/10/2018 2:46 PM Report E-Signed By: Rusty Vasquez MD at 07/10/2018 2:47 PM [id number] Assessment and Plan Problems: (1) Fever Status: Acute Assessment & Plan: It is very likely he has recurrent bacteremia/possibly early sepsis due to MSSA or MRSA once again. The suspected origin may be the CSF shunt (which has been deemed "unable to remove" due to high morbidity/mortality associated with it), but could also be his urinary tract and indwelling Muñoz cath. Will start on broad spectrum coverage with cefepime and tigecycline). He has had urine and blood cultures done. Watch closely in ICU. (2) Hyperglycemia due to type 2 diabetes mellitus Status: Acute Assessment & Plan: He admits he has not used his insulin over the past several days. He is not acidotic/ketotic. Will continue IV insulin to get glucoses controlled and then transition back to subcutaneous insulin. (3) Spina bifida Status: Chronic Assessment & Plan: He is essentially lower extremity paraplegic. (4) THOMAS (obstructive sleep apnea) Status: Chronic Assessment & Plan: He has refused to use CPAP/O2 in past. (5) Hx of deep venous thrombosis Status: Chronic Assessment & Plan: He has previously been on Xarelto and warfarin at times. His anticoagulation therapy was stopped due to chronic/intermittent GI blood loss with persistent anemia. (6) Chronic indwelling Muñoz catheter Status: Chronic Assessment & Plan: Due to neurogenic bladder secondary to spina bifida. This may have set him up for a recurrent UTI. Will cover with IV cefepime and tigecycline as noted above. (7) Obesity, morbid, BMI 40.0-49.9 Status: Chronic Central Venous Access Medical Necessity for Access: IV Access, Medication Administration Venous Thromboembolism Antithrombotics Is Pt On Any Antithrombotics?: No (possible upcoming procedure) Exam Sepsis Risk: Severe Sepsis Risk ANTHONY DUQUE MD Jul 10, 2018 16:08
[2018-07-10] MEDS: INSULIN HUM REG 100 UN/ML 3 ML 100 UNIT in NS(*) 0.9% 100 ML BAG 99 ML IV SCH (16:57)
[2018-07-10] MEDS: TIGECYCLINE 50 MG INJS 50 MG in NS(*) 0.9% 100 ML BAG 100 ML IVPB SCH (16:59)
[2018-07-10] MEDS ORDERED: FAMO-67 PO (17:19)
[2018-07-10] MEDS ORDERED: TRAZ50TA34 PO (17:19)
[2018-07-10] MEDS ORDERED: [UNRECOGNIZED DRUG - CODE] PO (17:19)
[2018-07-10] MEDS ORDERED: CHOL4PAC2 PO (17:19)
[2018-07-10] MEDS ORDERED: MICO45PO TOP (17:19)
[2018-07-10] MEDS ORDERED: MELA3TAB31 PO (17:19)
[2018-07-10] MEDS ORDERED: DIPH-618 PO (17:19)
[2018-07-10] MEDS ORDERED: METF-450 PO (17:19)
[2018-07-10] MEDS ORDERED: FURO-47 PO (17:19)
[2018-07-10] MEDS ORDERED: VITA1CAP46 PO (17:19)
[2018-07-10] MEDS ORDERED: CITA-156 PO (17:19)
[2018-07-10] MEDS ORDERED: MULT-1335 PO (17:19)
[2018-07-10] MEDS ORDERED: ZOLP-1 PO (17:19)
[2018-07-10] MEDS: NS 0.9% 250 ML BAG IV PRN (17:46)
[2018-07-10] MEDS: HYDROmorphone HCL 2 MG/ML SDV IVP PRN ×2 (17:47→20:56)
[2018-07-10] MEDS ORDERED: INSULIN GLARGINE 100 U/ML 3 ML PEN SUBQ ONE (19:30)
[2018-07-10] MEDS ORDERED: HUM100IN SC ×2 (19:53)
[2018-07-10] MEDS ORDERED: INSU100I28 SQ ×2 (19:53)
--- NOTE | 2018-07-10 21:07 | General Surgery Progress Note ---
Physical Exam Vital Signs Date Time Temp Pulse Resp B/P (MAP) Pulse Ox O2 Delivery O2 Flow Rate FiO2 07/10/18 20:47 98.1 101 10 117/70 07/10/18 18:30 92 07/10/18 15:17 Nasal Cannula 2.0 Result Diagram: 07/10/18 1245 07/10/18 5347 Assessment and Plan Problems: (1) Poor venous access Status: Chronic Assessment & Plan: Asked to place central line for meds, lab draws and antibiotics. Pt with hx right sided VA shunt X2 per report and difficult duncan pheral access admitted today with DKA and urosepsis. His INR is elevated and second unit FFP still transfusing. Using US the neck veins were difficult to visualize as were the groin veins. Discussed at length with pt, and singe winder. Informed consent signed, right femoral vein central line attempted. Blood return obtained, though unable to thread the wire, given increased resistance X2. Procedure aborted at this point. Pt unable to lie flat for any length of time, though he tolerated the procedure well. Groin hemostatic and dry gauze applied. Extensive chronic fungal rash and excoriation noted bilat groin region. Central Venous Access Medical Necessity for Access: IV Access, Medication Administration Time Spent: > 30 min Critical Time Spent: 1st 30-74 Minutes Exam Sepsis Risk: Severe Sepsis Risk ROSANNA BAHENA MD Jul 10, 2018 21:07
[2018-07-10] MEDS: NYSTATIN 100,000 U/GM PWD 15GM TP SCH (21:28)
--- NOTE | 2018-07-10 22:01 | General Surgery Progress Note ---
Physical Exam Vital Signs Date Time Temp Pulse Resp B/P (MAP) Pulse Ox O2 Delivery O2 Flow Rate FiO2 07/10/18 20:47 98.1 101 10 117/70 07/10/18 18:30 92 07/10/18 15:17 Nasal Cannula 2.0 Result Diagram: 07/10/18 1245 07/10/18 8207 Assessment and Plan Problems: (1) Poor venous access Status: Chronic Assessment & Plan: Asked to place central line for meds, lab draws and antibiotics. Pt with hx right sided VA shunt X2 per report and difficult duncan pheral access admitted today with DKA and urosepsis. His INR is elevated and second unit FFP still transfusing. Using US the neck veins were difficult to visualize as were the groin veins. Discussed at length with pt, and inpatient auditor. Informed consent signed, right femoral vein central line attempted. Blood return obtained, though unable to thread the wire, given increased resistance X2. Procedure aborted at this point. Pt unable to lie flat for any length of time, though he tolerated the procedure well. Groin hemostatic and dry gauze applied. Extensive chronic fungal rash and excoriation noted bilat groin region. Will re-attempt in am after INR corrected in the jugular vs PICC per Radiology. Central Venous Access Medical Necessity for Access: IV Access, Medication Administration Exam Sepsis Risk: Severe Sepsis Risk ROSANNA BAHENA MD Jul 10, 2018 22:01
[2018-07-10] MEDS: BENZOCAINE/MENTHOL 1 EACH LOZG PO PRN (22:15)
[2018-07-10] MEDS: NS(*) 0.9% 1000 ML BAG 1,000 ML IV PRN (22:43)
[2018-07-10 23:14] LABS: INR 2.18
[2018-07-11] VITALS (49 sets, daily range): BP systolic 103–150; BP diastolic 40–85
[2018-07-11] MEDS: CEFEPIME HCL 2 GM VIAL IVP SCH ×2 (01:33→13:15)
[2018-07-11] MEDS: TIGECYCLINE 50 MG INJS 50 MG in NS(*) 0.9% 100 ML BAG 100 ML IVPB SCH ×2 (03:16→15:23)
[2018-07-11] MEDS: HYDROmorphone HCL 2 MG/ML SDV IVP PRN ×5 (03:16→20:50)
[2018-07-11] MEDS: INSULIN HUM REG 100 UN/ML 3 ML 100 UNIT in NS(*) 0.9% 100 ML BAG 99 ML IV SCH (03:16)
[2018-07-11 06:14] LABS: PLATELET COUNT, AUTOMATED 201 K/uL (150-450)
[2018-07-11 06:15] LABS: INR 2.14
[2018-07-11] MEDS: NS(*) 0.9% 1000 ML BAG 1,000 ML IV PRN ×2 (07:27→15:23)
[2018-07-11] MEDS: NYSTATIN 100,000 U/GM PWD 15GM TP SCH ×2 (09:08→20:49)
[2018-07-11] MEDS: INS HUMAN ISOPH/INS REG 70/30 100 UNIT/ML 3ML VIAL SUBQ SCH ×2 (09:09→17:30)
--- NOTE | 2018-07-11 11:08 | Hospitalist Progress Note ---
Subjective Progress Notes Subjective This patient was admitted for sepsis. He had no acute events overnight. Patient Complains of: Cardiovascular: No: Chest Pain Respiratory: No: Shortness of Breath Physical Exam Vital Signs Date Time Temp Pulse Resp B/P (MAP) Pulse Ox O2 Delivery O2 Flow Rate FiO2 07/11/18 10:09 106 07/11/18 10:00 7 131/66 (87) 91 Nasal Cannula 2.0 07/11/18 09:00 98.8 Intake and Output 07/11/18 07:00 Intake Total 3997 ml Output Total 2925 ml Balance 1072 ml Intake Oral 420 ml IV Total 3087 ml Blood Product 490 ml Output Urine Total 2575 ml Stool Total 350 ml Cardiovascular: Regular Rate and Rhythm Respiratory: Clear to Auscultation Result Diagram: 07/11/1852307/11/18523 Item Value Date Time Prothromb Time International Ratio 2.14 07/11/18523 Item Value Date Time Blood Culture - Preliminary Resulted 07/10/18 1423 Blood NO GROWTH AFTER 1 DAY, REINCUBATED Blood Culture - Preliminary Resulted 07/10/18 1409 Blood Peripheral Draw NO GROWTH AFTER 1 DAY, REINCUBATED Assessment and Plan Problems: (1) Sepsis Assessment & Plan: He did present with fever, an elevated WBC, and lactic acidosis. The suspected origin may be the CSF shunt (which has been deemed "unable to remove" due to high morbidity/mortality associated with it), but could also be his urinary tract and indwelling Muñoz cath. He is on empiric coverage with tigecycline and cefepime. Cultures are pending. (2) Hyperglycemia due to type 2 diabetes mellitus Status: Acute Assessment & Plan: He did have significant hyperglycemia at admission, but was not acidotic. He was on IV insulin overnight, but has now been converted to Sq dosing. (3) Spina bifida Status: Chronic Assessment & Plan: He is essentially lower extremity paraplegic. (4) THOMAS (obstructive sleep apnea) Status: Chronic Assessment & Plan: He has refused to use CPAP/O2 in past. (5) Hx of deep venous thrombosis Status: Chronic Assessment & Plan: He has previously been on Xarelto and warfarin, but these were recently stopped. His INR remains elevated. It is not clear when he last had the medication. (6) Chronic indwelling Muñoz catheter Status: Chronic Assessment & Plan: Due to neurogenic bladder secondary to spina bifida. (7) Obesity, morbid, BMI 40.0-49.9 Status: Chronic Central Venous Access Medical Necessity for Access: IV Access, Medication Administration Exam Sepsis Risk: No Definite Risk RODRIGO BARRIGA DO Jul 11, 2018 11:08
[2018-07-11] MEDS: ACETAMINOPHEN 325 MG TAB PO PRN ×2 (11:30→20:50)
[2018-07-11] MEDS: INSULIN HUM REG 100 UN/ML 3 ML VIAL SC PRN ×3 (12:08→20:49)
[2018-07-11] MEDS: METOPROLOL SUCC XL 25 MG TABCR PO SCH (13:04)
[2018-07-11] MEDS: CITALOPRAM HYDROBROM 20 MG TAB PO SCH (13:04)
[2018-07-11] MEDS: OXYBUTYNIN CHL 5 MG TAB PO SCH (13:15)
[2018-07-11] MEDS: GABAPENTIN 300 MG CAP PO SCH ×2 (15:03→20:51)
[2018-07-11] MEDS: CHOLESTYRAMINE 4 GM POWD PO SCH (17:28)
[2018-07-11] MEDS: traZODone HCL 50 MG TAB PO SCH (20:50)
[2018-07-11] MEDS: BENZOCAINE/MENTHOL 1 EACH LOZG PO PRN (20:50)
[2018-07-11] MEDS: ATORVASTATIN 40 MG TAB PO SCH (20:51)
[2018-07-11] MEDS: AMITRIPTYLINE HCL 25 MG TAB PO SCH (20:51)
[2018-07-11] MEDS: FERROUS SULFATE 325 MG TAB PO SCH (20:51)
[2018-07-12] VITALS (16 sets, daily range): BP systolic 91–171; BP diastolic 55–111
[2018-07-12] MEDS: CEFEPIME HCL 2 GM VIAL IVP SCH (01:54)
[2018-07-12] MEDS: NS(*) 0.9% 1000 ML BAG 1,000 ML IV PRN (01:54)
[2018-07-12] MEDS: TIGECYCLINE 50 MG INJS 50 MG in NS(*) 0.9% 100 ML BAG 100 ML IVPB SCH ×2 (04:02→16:37)
[2018-07-12 06:09] LABS: PLATELET COUNT, AUTOMATED 224 K/uL (150-450)
[2018-07-12 06:11] LABS: INR 1.75
[2018-07-12] MEDS: HYDROmorphone HCL 2 MG/ML SDV IVP PRN (07:39)
[2018-07-12] MEDS ORDERED: NS(*) 0.9% 1000 ML BAG 1,000 ML IV PRN (08:14)
[2018-07-12] MEDS ORDERED: BENZONATATE 100 MG CAP PO PRN (08:15)
[2018-07-12] MEDS ORDERED: INFLUENZA VIRUS VAC 0.5ML SYR IM ONLY ONE (09:00)
[2018-07-12] MEDS: INSULIN HUM REG 100 UN/ML 3 ML VIAL SC PRN ×4 (09:40→21:04)
[2018-07-12] MEDS: ACETAMINOPHEN 325 MG TAB PO PRN ×2 (09:40→15:40)
[2018-07-12] MEDS: FERROUS SULFATE 325 MG TAB PO SCH ×2 (09:41→21:01)
[2018-07-12] MEDS: METOPROLOL SUCC XL 25 MG TABCR PO SCH (09:41)
[2018-07-12] MEDS: GABAPENTIN 300 MG CAP PO SCH ×3 (09:41→21:01)
[2018-07-12] MEDS: metFORMIN HCL 500 MG TAB PO SCH ×2 (09:41→21:01)
[2018-07-12] MEDS: INS HUMAN ISOPH/INS REG 70/30 100 UNIT/ML 3ML VIAL SUBQ SCH ×2 (09:41→17:35)
[2018-07-12] MEDS: OXYBUTYNIN CHL 5 MG TAB PO SCH (09:41)
[2018-07-12] MEDS: CITALOPRAM HYDROBROM 20 MG TAB PO SCH (09:42)
[2018-07-12] MEDS: NYSTATIN 100,000 U/GM PWD 15GM TP SCH ×2 (09:42→21:02)
[2018-07-12] MEDS: CHOLESTYRAMINE 4 GM POWD PO SCH ×2 (09:42→17:35)
[2018-07-12] MEDS: FAMOTIDINE 20 MG TAB PO SCH ×2 (09:42→21:00)
[2018-07-12] MEDS: FUROSEMIDE 40 MG TAB PO SCH (09:42)
[2018-07-12] MEDS: PANTOPRAZOLE SOD 40 MG TABEC PO SCH (09:42)
[2018-07-12] MEDS: oxyCODONE HCL 5 MG CAP PO PRN ×3 (11:25→23:45)
--- NOTE | 2018-07-12 12:08 | Hospitalist Progress Note ---
Subjective Progress Notes Subjective 58M admitted for sepsis. ASTRID overnight, one BCx growing coagulase positive staph. Patient Complains of: Neurological: No: Syncope, Confusion, Weakness Cardiovascular: No: Chest Pain, Palpitations Respiratory: Cough Gastrointestinal: No Nausea, No Vomiting Physical Exam Vital Signs Date Time Temp Pulse Resp B/P (MAP) Pulse Ox O2 Delivery O2 Flow Rate FiO2 07/12/18 11:04 101 07/12/18 11:00 100.0 20 148/70 (96) 93 Nasal Cannula 2.0 Intake and Output 07/12/18 07:00 Intake Total 5475.2 ml Output Total 2500 ml Balance 2975.2 ml Intake Oral 2760 ml IV Total 2715.2 ml Output Urine Total 2500 ml General Appearance: Alert, Awake, No Acute Distress Neuro: No Gross deficits Eyes: PERRLA ENT: Normal Cardiovascular: Normal Rhythm & Peripheral Pulses Respiratory: No Respiratory Distress (+ cough) GI: Soft and Non-Tender (+ colostomy) Extremities: Soft and Non Tender, Warm, Pulses, Perfused Integumentary: Skin Intact without Lesion / Mass (some perineal skin breakdown) Psych: Alert & Oriented X3 Result Diagram: 07/12/1851607/12/18516 Assessment and Plan Problems: (1) Sepsis Assessment & Plan: He did present with fever, an elevated WBC, and lactic acidosis. The suspected origin may be the CSF shunt (which has been deemed "unable to remove" due to high morbidity/mortality associated with it), but could also be his urinary tract and indwelling Muñoz cath. He is on empiric coverage with tigecycline, stopped cefepime as coagulase + staph is only isolate at this time. UCx growing yeast, likely colonization with indwelling Muñoz. (2) Hyperglycemia due to type 2 diabetes mellitus Status: Acute Assessment & Plan: He did have significant hyperglycemia at admission, but was not acidotic. He was on IV insulin overnight after admission, now converted to Sq dosing. (3) Spina bifida Status: Chronic Assessment & Plan: He is essentially lower extremity paraplegic. (4) THOMAS (obstructive sleep apnea) Status: Chronic Assessment & Plan: He has refused to use CPAP/O2 in past. (5) Hx of deep venous thrombosis Status: Chronic Assessment & Plan: He has previously been on Xarelto and warfarin, but these were recently stopped. His INR remains elevated. It is not clear when he last had the medication. (6) Chronic indwelling Muñoz catheter Status: Chronic Assessment & Plan: Due to neurogenic bladder secondary to spina bifida. (7) Obesity, morbid, BMI 40.0-49.9 Status: Chronic Central Venous Access Medical Necessity for Access: IV Access, Medication Administration Exam Sepsis Risk: No Definite Risk OSBORNE DANIAL DOWD DO Jul 12, 2018 12:08
[2018-07-12] MEDS: BENZOCAINE/MENTHOL 1 EACH LOZG PO PRN (15:40)
[2018-07-12] MEDS: traZODone HCL 50 MG TAB PO SCH (21:00)
[2018-07-12] MEDS: ATORVASTATIN 40 MG TAB PO SCH (21:01)
[2018-07-12] MEDS: MELATONIN 3 MG TAB PO SCH (21:01)
[2018-07-12] MEDS: AMITRIPTYLINE HCL 25 MG TAB PO SCH (21:01)
[2018-07-13] VITALS (7 sets, daily range): BP systolic 101–136; BP diastolic 55–86
[2018-07-13] MEDS: TIGECYCLINE 50 MG INJS 50 MG in NS(*) 0.9% 100 ML BAG 100 ML IVPB SCH (03:51)
[2018-07-13] MEDS: ACETAMINOPHEN 325 MG TAB PO PRN ×3 (03:51→23:55)
[2018-07-13 06:17] LABS: PLATELET COUNT, AUTOMATED 227 K/uL (150-450)
[2018-07-13 06:19] LABS: INR 1.55
[2018-07-13] MEDS: FUROSEMIDE 40 MG TAB PO SCH (08:26)
[2018-07-13] MEDS: GABAPENTIN 300 MG CAP PO SCH ×3 (08:27→21:04)
[2018-07-13] MEDS: FERROUS SULFATE 325 MG TAB PO SCH ×2 (08:27→21:04)
[2018-07-13] MEDS: OXYBUTYNIN CHL 5 MG TAB PO SCH (08:27)
[2018-07-13] MEDS: FAMOTIDINE 20 MG TAB PO SCH ×2 (08:27→21:05)
[2018-07-13] MEDS: metFORMIN HCL 500 MG TAB PO SCH ×2 (08:27→21:04)
[2018-07-13] MEDS: CITALOPRAM HYDROBROM 20 MG TAB PO SCH (08:28)
[2018-07-13] MEDS: METOPROLOL SUCC XL 25 MG TABCR PO SCH (08:28)
[2018-07-13] MEDS: INS HUMAN ISOPH/INS REG 70/30 100 UNIT/ML 3ML VIAL SUBQ SCH ×2 (08:28→17:11)
[2018-07-13] MEDS: CHOLESTYRAMINE 4 GM POWD PO SCH ×2 (08:28→17:10)
[2018-07-13] MEDS: PANTOPRAZOLE SOD 40 MG TABEC PO SCH (08:29)
[2018-07-13] MEDS: NYSTATIN 100,000 U/GM PWD 15GM TP SCH ×2 (08:29→21:05)
[2018-07-13] MEDS: ceFAZolin 1 GM VIAL IVP SCH ×2 (10:39→18:13)
[2018-07-13] MEDS ORDERED: MAGNESIUM SUL* 2 GM/50 ML IVPB 50 ML IVPB ONE (11:40)
[2018-07-13] MEDS: LORazepam 2 MG/ML VIAL IVP PRN ×2 (11:51→19:38)
[2018-07-13] MEDS ORDERED: LORazepam 2 MG/ML VIAL ONE (11:53)
[2018-07-13] MEDS ORDERED: LIDOCAINE MPF 1% 5 ML VIAL ONE (11:56)
[2018-07-13] MEDS: INSULIN HUM REG 100 UN/ML 3 ML VIAL SC PRN ×2 (12:02→17:11)
--- NOTE | 2018-07-13 13:52 | Medical Nutrition Therapy ---
ARLEN MIR 07/11/18 1342: Nutrition Monitoring & Eval RD Patient Assessment Time: [address] Assessment Type: RD Screen Patient Nutrition Acuity: 2-Moderate Follow Up Date: Jul 14, 2018 Nutritional Comment: 07/11. Pt admitted for fever, hyperglycemia, and anemia. Noted pt came in with DKA and sepsis infection. Pt is on diabetic diet and is receiving 20 units Humulin BID and 3-15 units Humulin PRN. Pt came in with BG levels in the high 300s with the highest reading 425 yesterday. Pt BG today is improving,currently 146. Afternoon BG, 355. Other notable labs include: low Hgb 9.3, Hct 29.1, sodium 131, creatinine .5 and elevated BUN 32. Experiencing 2+ pitting edema in BLE. Pt is 325lbs and has a BMI of 48.3. Recommend 2900 kcal and 117g protein each day. Will monitor pt intake as it becomes available. JOCELYN SMYTH 07/13/18 1352: Nutrition Monitoring & Eval Nutritional Comment: Reviewed and approve internet technology manager assessment. ARLEN Munoz Jul 11, 2018 13:42 JOCELYN SMYTH Jul 13, 2018 13:52
[2018-07-13] MEDS: oxyCODONE HCL 5 MG CAP PO PRN (14:47)
--- NOTE | 2018-07-13 14:54 | RADIOLOGY IMAGING REPORT ---
FACILITY: [facility] PATIENT NAME: Rodrigue Phillips : 1960 MR: [id number] V: [id number] EXAM DATE: ORDERING PHYSICIAN: ANTHONY DUQUE TECHNOLOGIST: Location: [facility] - [place] Patient: Rodrigue Phillips : 1960 Visit/Account:[id number] Date of Sevice: 07/10/2018 Exam type: PICC LINE PLACEMENT, PICC LINE INSERTION History: Poor IV access Comparison: May 24, 2018. Findings: Informed consent was obtained from the patient's . The patient's left arm was prepped and draped usual sterile fashion. Local anesthesia was accomplished with 1% lidocaine.. Utilizing both fluoro scopic and sonographic guidance a 45 cm long trimmed 5 [place] double lumen power PICC was inserted vi a the patent left basilic vein with the distal tip resting in superior vena cava. Both lumens of pow er PICC were flushed with 5 mL of saline flush. Proximal portion PICC line was adhered the patient's arm the sterile dressing. The sonographic images were saved to PACS. The procedure was accomplishe d without apparent complication The fluoroscopy dose area product was 424.38 micro-Prater per meter squared IMPRESSION: 1. Successful placement of a 45 cm long trimmed 5 [place] double lumen power PICC inserted via the pa tent left basilic vein with the distal tip resting in superior vena cava Report Dictated By: Milena Olea MD at 07/13/2018 2:47 PM Report E-Signed By: Milena Olea MD at 07/13/2018 2:51 PM WSN:[email or web address]
--- NOTE | 2018-07-13 14:55 | RADIOLOGY IMAGING REPORT ---
FACILITY: [facility] PATIENT NAME: Rodrigue Phillips : 1960 MR: [id number] V: [id number] EXAM DATE: ORDERING PHYSICIAN: ANTHONY DUQUE TECHNOLOGIST: [place] [facility] [place]ue [place] : 1960 Visit/Account:[id number] Date of Sevice: 07/10/2018 Exam type: PICC LINE PLACEMENT, PICC LINE INSERTION History: Poor IV access Comparison: May 24, 2018. Findings: Informed consent was obtained from the patient's . The patient's left arm was prepped and draped usual sterile fashion. Local anesthesia was accomplished with 1% lidocaine.. Utilizing both fluoro scopic and sonographic guidance a 45 cm long trimmed 5 [place] double lumen power PICC was inserted vi a the patent left basilic vein with the distal tip resting in superior vena cava. Both lumens of pow er PICC were flushed with 5 mL of saline flush. Proximal portion PICC line was adhered the patient's arm the sterile dressing. The sonographic images were saved to PACS. The procedure was accomplishe d without apparent complication The fluoroscopy dose area product was 424.38 micro-Prater per meter squared IMPRESSION: 1. Successful placement of a 45 cm long trimmed 5 [place] double lumen power PICC inserted via the pa tent left basilic vein with the distal tip resting in superior vena cava Report Dictated By: Milena Olea MD at 07/13/2018 2:47 PM Report E-Signed By: Milena Olea MD at 07/13/2018 2:51 PM WSN:[email or web address]
--- NOTE | 2018-07-13 16:20 | Hospitalist Progress Note ---
Subjective Progress Notes Subjective The patient is contemplating going to [facility] versus Hospice. Physical Exam Vital Signs Date Time Temp Pulse Resp B/P (MAP) Pulse Ox O2 Delivery O2 Flow Rate FiO2 07/13/18 15:36 97.8 98 20 136/69 (91) 98 Nasal Cannula 2.0 Intake and Output 07/13/18 07:00 Intake Total 2260 ml Output Total 5150 ml Balance -2890 ml Intake Oral 1260 ml IV Total 1000 ml Output Urine Total 5150 ml General Appearance: Alert, Awake, No Acute Distress Neuro: Other (Stable, chronic changes associated with spina bifida.) Eyes: PERRLA Cardiovascular: Regular Rate and Rhythm Respiratory: Clear to Auscultation GI: Soft and Non-Tender, Other (Colostomy present in L abdomen.) Extremities: Warm, Perfused, Edema Psych: Alert & Oriented X3, Appropriate Mood & Affect Result Diagram: 07/13/18 0551 07/13/18 0551 Assessment and Plan Problems: (1) Sepsis Assessment & Plan: He did present with fever, an elevated WBC, and lactic acidosis. The suspected origin may be the CSF shunt (which has been deemed "unable to remove" due to high morbidity/mortality associated with it). He was on empiric coverage with tigecycline, and this was switched to Ancef today. UCx growing yeast, likely colonization with indwelling Muñoz. (2) Hyperglycemia due to type 2 diabetes mellitus Status: Acute Assessment & Plan: He did have significant hyperglycemia at admission, but was not acidotic. He was on IV insulin overnight after admission, now converted to Sq dosing. (3) Spina bifida Status: Chronic Assessment & Plan: He is essentially lower extremity paraplegic. (4) THOMAS (obstructive sleep apnea) Status: Chronic Assessment & Plan: He has refused to use CPAP/O2 in past. (5) Hx of deep venous thrombosis Status: Chronic Assessment & Plan: He has previously been on Xarelto and warfarin, but these were thought to be recently stopped as they were not on his list of meds from the rehab facility. His INR was in therapeutic range on [facility]. Review of records the patient brought with him from [facility] (prior to going to rehab) shows warfarin was to be continued. He has had multiple clots in the past. There was no report of bleeding from the patient or his . Will start Lovenox and get records from [facility] to clarify. (6) Chronic indwelling Muñoz catheter Status: Chronic Assessment & Plan: Due to neurogenic bladder secondary to spina bifida. (7) Obesity, morbid, BMI 40.0-49.9 Status: Chronic Central Venous Access Medical Necessity for Access: IV Access, Medication Administration Time Spent on Plan of Care: < 30 min Exam Sepsis Risk: No Definite Risk JOHN DUQUE MD Jul 13, 2018 16:20
[2018-07-13] MEDS ORDERED: ONDANSETRON 4 MG/2 ML VIAL IVP PRN (19:15)
[2018-07-13] MEDS: ATORVASTATIN 40 MG TAB PO SCH (21:04)
[2018-07-13] MEDS: AMITRIPTYLINE HCL 25 MG TAB PO SCH (21:05)
[2018-07-13] MEDS: MELATONIN 3 MG TAB PO SCH (21:05)
[2018-07-13] MEDS: traZODone HCL 50 MG TAB PO SCH (21:05)
[2018-07-13] MEDS: ENOXAPARIN 100 MG/ML SYR SC SCH (21:06)
[2018-07-14] VITALS (7 sets, daily range): BP systolic 106–124; BP diastolic 66–93
[2018-07-14] MEDS: ceFAZolin 1 GM VIAL IVP SCH ×3 (02:30→18:29)
[2018-07-14] MEDS: oxyCODONE HCL 5 MG CAP PO PRN ×3 (03:10→23:31)
[2018-07-14 06:46] LABS: PLATELET COUNT, AUTOMATED 261 K/uL (150-450)
[2018-07-14] MEDS: metFORMIN HCL 500 MG TAB PO SCH ×2 (08:20→20:32)
[2018-07-14] MEDS: FUROSEMIDE 40 MG TAB PO SCH (08:20)
[2018-07-14] MEDS: NYSTATIN 100,000 U/GM PWD 15GM TP SCH ×2 (08:21→20:32)
[2018-07-14] MEDS: OXYBUTYNIN CHL 5 MG TAB PO SCH (08:21)
[2018-07-14] MEDS: FAMOTIDINE 20 MG TAB PO SCH ×2 (08:21→20:31)
[2018-07-14] MEDS: CITALOPRAM HYDROBROM 20 MG TAB PO SCH (08:21)
[2018-07-14] MEDS: METOPROLOL SUCC XL 25 MG TABCR PO SCH (08:21)
[2018-07-14] MEDS: CHOLESTYRAMINE 4 GM POWD PO SCH ×2 (08:21→17:09)
[2018-07-14] MEDS: PANTOPRAZOLE SOD 40 MG TABEC PO SCH (08:21)
[2018-07-14] MEDS: FERROUS SULFATE 325 MG TAB PO SCH ×2 (08:21→20:32)
[2018-07-14] MEDS: GABAPENTIN 300 MG CAP PO SCH ×3 (08:21→20:32)
[2018-07-14] MEDS: INS HUMAN ISOPH/INS REG 70/30 100 UNIT/ML 3ML VIAL SUBQ SCH ×2 (08:22→17:09)
[2018-07-14] MEDS: LORazepam 2 MG/ML VIAL IVP PRN (08:39)
[2018-07-14] MEDS ORDERED: MAGNESIUM SUL* 2 GM/50 ML IVPB 50 ML IVPB ONE ×2 (09:15→11:15)
[2018-07-14] MEDS: ENOXAPARIN 100 MG/ML SYR SC SCH ×2 (10:02→20:31)
[2018-07-14] MEDS: INSULIN HUM REG 100 UN/ML 3 ML VIAL SC PRN ×3 (10:21→20:36)
--- NOTE | 2018-07-14 11:53 | Hospitalist Progress Note ---
Subjective Progress Notes Subjective This patient was admitted for sepsis secondary to a urinary infection. He developed seizure like activity yesterday. Patient Complains of: Cardiovascular: No: Chest Pain Respiratory: No: Shortness of Breath Physical Exam Vital Signs Date Time Temp Pulse Resp B/P (MAP) Pulse Ox O2 Delivery O2 Flow Rate FiO2 07/14/18 08:25 97 Nasal Cannula 3.0 07/14/18 08:14 98.2 126 16 111/79 (90) Intake and Output 07/14/18 07:00 Intake Total 400 ml Output Total 4800 ml Balance -4400 ml Intake Oral 400 ml Output Urine Total 4800 ml # Bowel Movements 1 Cardiovascular: Regular Rate and Rhythm Respiratory: Clear to Auscultation Result Diagram: 07/14/18 0607/14/18 06 Item Value Date Time Blood Culture - Preliminary Resulted 07/10/18 1423 Blood Staphylococcus, Coagulase Pos Blood Culture - Final Resulted 07/10/18 1409 Blood Peripheral Draw Assessment and Plan Problems: (1) Sepsis Assessment & Plan: He did present with fever, an elevated WBC, and lactic acidosis. The suspected origin is the CSF shunt (which has been deemed "unable to remove" due to high morbidity/mortality associated with it). He was on empiric coverage with tigecycline, but was switched to Ancef based on sensitivities. (2) Seizure-like activity Assessment & Plan: He did develop seizure like activity yesterday. An EEG has been ordered. (3) Hyperglycemia due to type 2 diabetes mellitus Status: Acute Assessment & Plan: He did have significant hyperglycemia at admission, but was not acidotic. He was on IV insulin, but then converted to SQ dosing. (4) Spina bifida Status: Chronic Assessment & Plan: He is essentially lower extremity paraplegic. (5) THOMAS (obstructive sleep apnea) Status: Chronic Assessment & Plan: He has refused to use CPAP/O2 in past. (6) Hx of deep venous thrombosis Status: Chronic Assessment & Plan: He has previously been on Xarelto and warfarin, but these were thought to be recently stopped as they were not on his list of meds from the rehab facility. His INR was in therapeutic range on admission to [facility] however. Review of records the patient brought with him from [facility] (prior to going to rehab) shows warfarin was to be continued. He has had multiple clots in the past. There was no report of bleeding from the patient or his . Will start Lovenox and get records from [facility] to clarify. (7) Chronic indwelling Muñoz catheter Status: Chronic Assessment & Plan: Due to neurogenic bladder secondary to spina bifida. (8) Obesity, morbid, BMI 40.0-49.9 Status: Chronic Central Venous Access Medical Necessity for Access: IV Access, Medication Administration Exam Sepsis Risk: No Definite Risk RODRIGO BARRIGA DO Jul 14, 2018 11:53
[2018-07-14] MEDS: MELATONIN 3 MG TAB PO SCH (20:31)
[2018-07-14] MEDS: AMITRIPTYLINE HCL 25 MG TAB PO SCH (20:32)
[2018-07-14] MEDS: ATORVASTATIN 40 MG TAB PO SCH (20:32)
[2018-07-14] MEDS: traZODone HCL 50 MG TAB PO SCH (20:32)
[2018-07-15] VITALS (7 sets, daily range): BP systolic 110–148; BP diastolic 60–82
[2018-07-15] MEDS: oxyCODONE HCL 5 MG CAP PO PRN ×3 (00:44→23:08)
[2018-07-15] MEDS: ceFAZolin 1 GM VIAL IVP SCH ×3 (02:24→18:19)
[2018-07-15] MEDS: ACETAMINOPHEN 325 MG TAB PO PRN ×2 (06:06→15:19)
[2018-07-15] MEDS: OXYBUTYNIN CHL 5 MG TAB PO SCH (08:52)
[2018-07-15] MEDS: FUROSEMIDE 40 MG TAB PO SCH (08:52)
[2018-07-15] MEDS: GABAPENTIN 300 MG CAP PO SCH ×3 (08:52→21:34)
[2018-07-15] MEDS: CITALOPRAM HYDROBROM 20 MG TAB PO SCH (08:52)
[2018-07-15] MEDS: METOPROLOL SUCC XL 25 MG TABCR PO SCH (08:52)
[2018-07-15] MEDS: FERROUS SULFATE 325 MG TAB PO SCH ×2 (08:52→21:34)
[2018-07-15] MEDS: PANTOPRAZOLE SOD 40 MG TABEC PO SCH (08:52)
[2018-07-15] MEDS: metFORMIN HCL 500 MG TAB PO SCH ×2 (08:53→21:34)
[2018-07-15] MEDS: CHOLESTYRAMINE 4 GM POWD PO SCH ×2 (08:53→17:04)
[2018-07-15] MEDS: NYSTATIN 100,000 U/GM PWD 15GM TP SCH ×2 (08:53→21:35)
[2018-07-15] MEDS: FAMOTIDINE 20 MG TAB PO SCH ×2 (08:53→21:35)
[2018-07-15] MEDS: INS HUMAN ISOPH/INS REG 70/30 100 UNIT/ML 3ML VIAL SUBQ SCH ×2 (08:54→17:08)
[2018-07-15] MEDS: INSULIN HUM REG 100 UN/ML 3 ML VIAL SC PRN ×4 (08:59→22:23)
[2018-07-15] MEDS ORDERED: ALTEPLASE RECOMB 2 MG VIAL IVP PRN (12:05)
--- NOTE | 2018-07-15 15:19 | Medical Nutrition Therapy ---
Nutrition Anthropometrics Weight (Pounds): 332 Weight (Calculated Kilograms): 150.763 Delfino Nutrition Score: Adequate Delfino Nutrition Risk Score: 14 Dietary Referral Nutrition Risk Factors: Special Diet Nutrition Risk Comment: Diabetic Physical Findings Physical Appearance: Morbidly Obese 40+ Skin Appearance Skin Appearance: Edema Edema Location Modifier: Both Edema Location: Lower Extremity Type of Edema: Degree of Edema: 1+ Gastrointestinal Symptoms GI Symtoms: Tube Present: Bowel Sounds: Recent Bowel Pattern: Colostomy Stool Characteristics: Brown, Soft Nutrition/Food History Non-compliant W/Diet Nutritional Diagnosis Nutritional Risk Acuity 2: Blood Glucose > 300mg/dl, Sepsis Nutritional Risk Acuity 3: Fair Appetite, Morbid Obesity Nutritional Risk Acuity 4: Modified Diet Past Medical History: Hx of septic pulmonary embolism, hypomagnesium, sepsis, anemia, T2DM, spina bifida, morbid obese BMI,referr to medical record for remaining hx Nutritional Acuity: 2-Moderate Nutrition Diagnosis: Over-weight/Obesity Nutrition Etiology: Inconsist. Eating Pattern, Physiological Causes Nutrition Problem/Etiology/Sym: Overweight/Obesity related to Excessive energy intake and Physical inactivity AEB Diagnosis of Morbid obesity and physical limitations d/t spina bifea. Energy Requirement: 3000 (Actual BW (Kg) X 20) Protein Requirement: 120 (Actual BW Kg X .8) Fluid Requirement: 3000 Diet Type: Diabetic Nutrition Intervention: Cont diet as ordered Nutrition Monitoring & Eval Nutrition Goals: Eat 50-100% Meal RD Patient Assessment Time: [address] Assessment Type: RD Assessment Patient Nutrition Acuity: 2-Moderate Follow Up Date: Jul 18, 2018 Nutritional Comment: 07/11. Pt admitted for fever, hyperglycemia, and anemia. Noted pt came in with hypergycemia and sepsis infection. Pt is on diabetic diet and is receiving 20 units Humulin BID and 3-15 units Humulin PRN. Pt came in with BG levels in the high 300s with the highest reading 425 yesterday. Pt BG today is improving,currently 146. Afternoon BG, 355. Other notable labs include: low Hgb 9.3, Hct 29.1, sodium 131, creatinine .5 and elevated BUN 32. Experiencing 2+ pitting edema in BLE. Pt is 325lbs and has a BMI of 48.3. Recommend 2900 kcal and 117g protein each day. Will monitor pt intake as it becomes available. MR Reviewed and approve event marketing intern assessment. bk 07/15/18 Glu 262, Alb 2.7, Low Mg+/Ca+/Na+, Low H/H. Varible intake of Diabetes diet from 0 - 100%. Appetite seems to be increasing as intake of 80-100% last three meals. Follow labs, intake, etc. -KATLIN ACUNA Jul 15, 2018 15:19
--- NOTE | 2018-07-15 15:34 | Hospitalist Progress Note ---
Subjective Progress Notes Subjective The patient states he feels worn out. Physical Exam Vital Signs Date Time Temp Pulse Resp B/P (MAP) Pulse Ox O2 Delivery O2 Flow Rate FiO2 07/15/18 14:33 98.4 108 16 121/70 (87) 97 Nasal Cannula 3.0 Intake and Output 07/15/18 07:00 Intake Total 1300 ml Output Total 4000 ml Balance -2700 ml Intake Oral 1200 ml IV Total 100 ml Output Urine Total 4000 ml # Bowel Movements 2 General Appearance: Alert, Awake, No Acute Distress Neuro: Other (Stable chronic sequelae of spina bifida.) Eyes: PERRLA Cardiovascular: Other (Slightly tachy, regular.) Respiratory: Clear to Auscultation GI: Soft and Non-Tender, Other (Colostomy L abdomen.) Extremities: Warm, Perfused, Edema Psych: Appropriate Mood & Affect Result Diagram: 07/14/1860107/14/18601 Assessment and Plan Problems: (1) Sepsis Assessment & Plan: He did present with fever, an elevated WBC, and lactic acidosis. The suspected origin is the CSF shunt (which has been deemed "unable to remove" due to high morbidity/mortality associated with it). He was on empiric coverage with tigecycline, but was switched to Ancef based on sensitivities. (2) Seizure-like activity Assessment & Plan: He did develop seizure like activity yesterday. An EEG has been ordered. He is on Ancef which can cause seizures and he has had a low magnesium level. His magnesium is being replaced. (3) Hyperglycemia due to type 2 diabetes mellitus Status: Acute Assessment & Plan: He did have significant hyperglycemia at admission, but was not acidotic. He was on IV insulin, but then converted to SQ dosing. (4) Spina bifida Status: Chronic Assessment & Plan: He is essentially lower extremity paraplegic. (5) THOMAS (obstructive sleep apnea) Status: Chronic Assessment & Plan: He has refused to use CPAP/O2 in past. (6) Hx of deep venous thrombosis Status: Chronic Assessment & Plan: He has previously been on Xarelto and warfarin, but these were thought to be recently stopped as they were not on his list of meds from the rehab facility. His INR was in therapeutic range on admission to [facility] however. Review of records the patient brought with him from [facility] (prior to going to rehab) shows warfarin was to be continued. He has had multiple clots in the past. There was no report of bleeding from the patient or his . Lovenox was started and records were requested from [facility] on July 13. The patient then developed hematuria on 07/14. Will hold Lovenox and send another request for records to [facility]. (7) Chronic indwelling Muñoz catheter Status: Chronic Assessment & Plan: Due to neurogenic bladder secondary to spina bifida. (8) Obesity, morbid, BMI 40.0-49.9 Status: Chronic (9) Hypomagnesemia Status: Acute Assessment & Plan: Initial magnesium level 1.2. The patient received 2g IV. Repeat magnesium was 1.4. He received another 4g IV yesterday but a repeat level was not done. Will give another 2g IV today and repeat a magnesium level in the am. Central Venous Access Medical Necessity for Access: IV Access, Medication Administration Time Spent on Plan of Care: < 30 min Exam Sepsis Risk: No Definite Risk JOHN DUQUE MD Jul 15, 2018 15:34
[2018-07-15] MEDS ORDERED: MAGNESIUM SUL* 2 GM/50 ML IVPB 50 ML IVPB ONE (16:15)
[2018-07-15] MEDS: NS 0.9% 250 ML BAG IV PRN (16:54)
[2018-07-15] MEDS: traZODone HCL 50 MG TAB PO SCH (21:34)
[2018-07-15] MEDS: AMITRIPTYLINE HCL 25 MG TAB PO SCH (21:35)
[2018-07-15] MEDS: MELATONIN 3 MG TAB PO SCH (21:35)
[2018-07-15] MEDS: ATORVASTATIN 40 MG TAB PO SCH (21:35)
[2018-07-16] MEDS: ACETAMINOPHEN 325 MG TAB PO PRN ×3 (02:51→19:24)
[2018-07-16] MEDS: ceFAZolin 1 GM VIAL IVP SCH ×3 (02:52→18:17)
[2018-07-16 04:29] VITALS: BP 132/67
[2018-07-16] MEDS: oxyCODONE HCL 5 MG CAP PO PRN ×3 (05:19→18:18)
[2018-07-16 06:18] LABS: PLATELET COUNT, AUTOMATED 256 K/uL (150-450)
[2018-07-16] MEDS ORDERED: MAGNESIUM SUL* 4 GM/100 ML BAG 100 ML IVPB ONE (06:45)
[2018-07-16] MEDS: INS HUMAN ISOPH/INS REG 70/30 100 UNIT/ML 3ML VIAL SUBQ SCH ×2 (08:00→16:35)
[2018-07-16] MEDS: INSULIN HUM REG 100 UN/ML 3 ML VIAL SC PRN ×4 (08:01→21:49)
[2018-07-16] MEDS: CHOLESTYRAMINE 4 GM POWD PO SCH ×2 (08:01→16:36)
[2018-07-16 08:06] VITALS: BP 122/72
[2018-07-16 08:25] VITALS: BP 122/72
[2018-07-16] MEDS: OXYBUTYNIN CHL 5 MG TAB PO SCH (09:00)
[2018-07-16] MEDS: METOPROLOL SUCC XL 25 MG TABCR PO SCH (09:00)
[2018-07-16] MEDS: FAMOTIDINE 20 MG TAB PO SCH ×2 (09:00→21:45)
[2018-07-16] MEDS: metFORMIN HCL 500 MG TAB PO SCH ×2 (09:01→21:46)
[2018-07-16] MEDS: CITALOPRAM HYDROBROM 20 MG TAB PO SCH (09:01)
[2018-07-16] MEDS: FERROUS SULFATE 325 MG TAB PO SCH ×2 (09:01→21:45)
[2018-07-16] MEDS: PANTOPRAZOLE SOD 40 MG TABEC PO SCH (09:02)
[2018-07-16] MEDS: GABAPENTIN 300 MG CAP PO SCH ×3 (09:02→21:45)
[2018-07-16] MEDS: FUROSEMIDE 40 MG TAB PO SCH (09:02)
[2018-07-16] MEDS: NYSTATIN 100,000 U/GM PWD 15GM TP SCH ×2 (09:03→21:44)
--- NOTE | 2018-07-16 11:33 | Hospitalist Progress Note ---
Subjective Progress Notes Subjective No reported chills or fevers. He did have an event of altered level of consciousness with full body shaking yesterday, but he followed commands and could answer questions. No post-ictal period Physical Exam Vital Signs Date Time Temp Pulse Resp B/P (MAP) Pulse Ox O2 Delivery O2 Flow Rate FiO2 07/16/18 10:01 91 Nasal Cannula 2.0 07/16/18 08:25 98.6 104 16 122/72 (89) Intake and Output 07/16/18 07:00 Intake Total 1050 ml Output Total 2250 ml Balance -1200 ml Intake Oral 1000 ml IV Total 50 ml Output Urine Total 2250 ml # Bowel Movements 4 General Appearance: Alert, Awake, No Acute Distress Cardiovascular: Regular Rate and Rhythm Result Diagram: 07/16/1852307/16/18523 Assessment and Plan Problems: (1) Sepsis Assessment & Plan: He did present with fever, an elevated WBC, and lactic acido sis. The suspected origin is the CSF shunt (which has been deemed "unable to remove" due to high morbidity/mortality associated with it). He was on empiric coverage with tigecycline, but was switched to Ancef based on sensitivities. He has a PICC line. The plan is to go to the [facility] to do about 6 weeks of IV abx and then switch to oral suppressive treatment. The patient is not wanting to do IV again after this treatment and then would go to Hospice if this course fails. (2) Seizure-like activity Assessment & Plan: He did develop seizure like activity. An EEG today, shows no seizure activity. He is on Ancef which can cause seizures and he has had a low magnesium level. His magnesium is being replaced. He is still getting the Ancef. He did have some shaking of his body yesterday, but he answered questions and followed commands and there was no post-ictal period. Will continue to follow Mg. (3) Hyperglycemia due to type 2 diabetes mellitus Status: Acute Assessment & Plan: He did have significant hyperglycemia at admission, but was not acidotic. He was on IV insulin, but then converted to SQ dosing. (4) Spina bifida Status: Chronic Assessment & Plan: He is essentially lower extremity paraplegic. (5) THOMAS (obstructive sleep apnea) Status: Chronic Assessment & Plan: He has refused to use CPAP/O2 in past. (6) Hx of deep venous thrombosis Status: Chronic Assessment & Plan: He has previously been on Xarelto and warfarin, but these were thought to be recently stopped as they were not on his list of meds from the rehab facility. His INR was in therapeutic range on admission to [facility] however. Review of records the patient brought with him from [facility] (prior to going to rehab) shows warfarin was to be continued. He has had multiple clots in the past. There was no report of bleeding from the patient or his . Lovenox was started and records were requested from [facility] on July 13. The patient then developed hematuria on 07/14. Will hold Lovenox and send another request for records to [facility]. (7) Chronic indwelling Muñoz catheter Status: Chronic Assessment & Plan: Due to neurogenic bladder secondary to spina bifida. (8) Obesity, morbid, BMI 40.0-49.9 Status: Chronic (9) Hypomagnesemia Status: Acute Assessment & Plan: Initial magnesium level 1.2. The patient received 2g IV. Repeat magnesium was 1.4. He received another 4g IV yesterday but a repeat level was not done. Will give another 2g IV today and repeat a magnesium level in the am. Central Venous Access Medical Necessity for Access: IV Access, Medication Administration Exam Sepsis Risk: No Definite Risk ARSH DACOSTA MD Jul 16, 2018 11:33
[2018-07-16 13:37] VITALS: BP 134/71
[2018-07-16] MEDS: MELATONIN 3 MG TAB PO SCH (21:45)
[2018-07-16] MEDS: traZODone HCL 50 MG TAB PO SCH (21:45)
[2018-07-16] MEDS: ATORVASTATIN 40 MG TAB PO SCH (21:45)
[2018-07-16] MEDS: AMITRIPTYLINE HCL 25 MG TAB PO SCH (21:46)
[2018-07-16 22:00] VITALS: BP 125/65
[2018-07-17 00:32] VITALS: BP 101/57
[2018-07-17] MEDS: oxyCODONE HCL 5 MG CAP PO PRN ×3 (00:37→14:21)
[2018-07-17] MEDS: ceFAZolin 1 GM VIAL IVP SCH ×2 (02:05→11:16)
[2018-07-17 06:05] VITALS: BP 100/54
[2018-07-17] MEDS: ACETAMINOPHEN 325 MG TAB PO PRN ×2 (06:13→09:17)
[2018-07-17 06:29] LABS: PLATELET COUNT, AUTOMATED 253 K/uL (150-450)
[2018-07-17] MEDS: INS HUMAN ISOPH/INS REG 70/30 100 UNIT/ML 3ML VIAL SUBQ SCH (08:49)
[2018-07-17] MEDS: CHOLESTYRAMINE 4 GM POWD PO SCH (08:49)
[2018-07-17] MEDS: FERROUS SULFATE 325 MG TAB PO SCH (08:51)
[2018-07-17] MEDS: OXYBUTYNIN CHL 5 MG TAB PO SCH (08:51)
[2018-07-17] MEDS: metFORMIN HCL 500 MG TAB PO SCH (08:51)
[2018-07-17] MEDS: GABAPENTIN 300 MG CAP PO SCH ×2 (08:51→14:21)
[2018-07-17] MEDS: CITALOPRAM HYDROBROM 20 MG TAB PO SCH (08:52)
[2018-07-17] MEDS: FUROSEMIDE 40 MG TAB PO SCH (08:52)
[2018-07-17] MEDS: PANTOPRAZOLE SOD 40 MG TABEC PO SCH (08:52)
[2018-07-17] MEDS: FAMOTIDINE 20 MG TAB PO SCH (08:52)
[2018-07-17] MEDS: METOPROLOL SUCC XL 25 MG TABCR PO SCH (08:52)
[2018-07-17] MEDS: NYSTATIN 100,000 U/GM PWD 15GM TP SCH (08:53)
[2018-07-17] MEDS ORDERED: CEFA1VIA IVP (11:36)
[2018-07-17] MEDS ORDERED: HUM100VI2 SUBQ (11:36)
[2018-07-17] MEDS ORDERED: INSU100V26 SC (11:36)
[2018-07-17] MEDS ORDERED: [UNRECOGNIZED DRUG - CODE] PO (11:36)
[2018-07-17] MEDS ORDERED: OXYC5TAB38 PO (11:36)
[2018-07-17] MEDS ORDERED: OXYC20TA99 PO (11:36)
[2018-07-17] MEDS ORDERED: NYST15PO12 TP (11:36)
--- NOTE | 2018-07-17 11:57 | Hospitalist Depart ---
Discharge Summary Reason for Hosp/Final Diag: (1) Sepsis Hospital Course & Plan: He did present with fever, an elevated WBC, and lactic acidosis. The suspected origin is the CSF shunt (which has been deemed "unable to remove" due to high morbidity/mortality associated with it). He was on empiric coverage with tigecycline, but was switched to Ancef based on sensitivities. He has a PICC line in place. The plan is to go to the [facility] to do 6 weeks of IV antibiotics and then switch to oral suppressive treatment (Duricef 500mg PO BID) indefinitely. The patient has decided he does not want to do IV antibiotics again after this treatment and then would rather have Comfort Care only/end-of-life care if this course fails. He and his family do understand he would most likely become septic once again and probably fairly quickly. (2) Seizure-like activity Hospital Course & Plan: He did develop seizure like activity. An EEG showed no seizure focus. He did have a low magnesium level, which was replaced. He will need periodic magnesium levels checked. (3) Hyperglycemia due to type 2 diabetes mellitus Status: Acute Hospital Course & Plan: He did have significant hyperglycemia at admission, but was not acidotic. He was initially placed on IV insulin to get glucoses controlled. He was then converted to SQ dosing. (4) Spina bifida Status: Chronic Hospital Course & Plan: He is essentially lower extremity paraplegic. (5) THOMAS (obstructive sleep apnea) Status: Chronic Hospital Course & Plan: He has refused to use CPAP/O2 in past. (6) Hx of deep venous thrombosis Status: Chronic Hospital Course & Plan: He has previously been on Xarelto and warfarin, but these were thought to be recently stopped as they were not on his list of meds from the rehab facility. His INR was in therapeutic range on admission to [facility] however. Review of records the patient brought with him from [facility] (prior to going to rehab) shows warfarin was to be continued. He has had multiple clots in the past. There was no report of recent bleeding from the patient or his . Lovenox was started on July 13. The patient then developed hematuria on 07/14 and Lovenox was stopped/held. He is on aspirin therapy at this time, but may need to be considered for restart of either warfarin or Xarelto. (7) Chronic indwelling Muñoz catheter Status: Chronic Hospital Course & Plan: Due to neurogenic bladder secondary to spina bifida. He will have catheter changed every 3-4 weeks. (8) Obesity, morbid, BMI 40.0-49.9 Status: Chronic (9) Hypomagnesemia Status: Acute Hospital Course & Plan: Initial magnesium level 1.2. He was given IV sup plementation and is now on oral replacement. He will need periodic monitoring of his levels. Departure Weight (Pounds): 334 Weight (Ounces): 9.0 Result Diagram: 07/17/18 0542 07/17/18 1034 Item Value Date Time Sodium Level 119 mmol/L *L 07/10/18 1245 Potassium Level 5.1 mmol/L H 07/10/18 1245 Chloride Level 81 mmol/L *L 07/10/18 1245 Carbon Dioxide Level 25 mmol/L 07/10/18 1245 Blood Urea Nitrogen 41 mg/dl H 07/10/18 1245 Creatinine 0.90 mg/dl 07/10/18 1245 Glomerular Filtration Rate Calc > 60.0 07/10/18 1245 Random Glucose 801 mg/dl *H 07/10/18 1245 Calcium Level 8.5 mg/dl 07/10/18 1245 Total Bilirubin 0.5 mg/dl 07/10/18 1245 Aspartate Amino Transf (AST/SGOT) 19 U/L 07/10/18 1245 Alanine Aminotransferase (ALT/SGPT) 27 U/L 07/10/18 1245 Alkaline Phosphatase 143 U/L H 07/10/18 1245 Troponin I < 0.012 ng/ml 07/10/18 1245 Total Protein 6.9 g/dl 07/10/18 1245 Albumin 3.5 g/dl 07/10/18 1245 Lactate 4.9 mmol/L *H 07/10/18 1245 Lactate 1.8 mmol/L 07/10/18 2258 Magnesium Level 2.5 mg/dl H 07/17/18 0542 Magnesium Level 1.5 mg/dl L 07/16/18 0524 Urine Yeast (Budding) Moderate /HPF H 07/10/18 1245 Urine Mucus None /HPF 07/10/18 1245 Urine Bacteria Few /HPF 07/10/18 1245 Urine Squamous Epithelial Cells Moderate /LPF H 07/10/18 1245 Urine WBC Clumps Few /HPF 07/10/18 1245 Urine WBC 258 /HPF 07/10/18 1245 Urine RBC 64 /HPF 07/10/18 1245 Urine Leukocyte Esterase Moderate H 07/10/18 1245 Urine Urobilinogen 0.2 mg/dL 07/10/18 1245 Urine Bilirubin Moderate H 07/10/18 1245 Urine Nitrite Positive H 07/10/18 1245 Urine Blood Large H 07/10/18 1245 Urine Ketones Trace mg/dL 07/10/18 1245 Urine Glucose (UA) >1000 mg/dL 07/10/18 1245 Urine Protein 100 mg/dL 07/10/18 1245 Urine Specific [place] 1.010 07/10/18 1245 Urine pH 5.0 pH 07/10/18 1245 Urine Clarity Cloudy 07/10/18 1245 Urine Color Yellow 07/10/18 1245 Prothromb Time International Ratio 1.55 07/13/18 0551 Prothrombin Time 18.8 seconds H 07/13/18 0551 Prothrombin Time 20.6 seconds H 07/12/18 0517 Prothromb Time International Ratio 1.75 07/12/18 0517 Activated Partial Thromboplast Time 37 seconds H 07/12/18 0517 Prothromb Time International Ratio 2.14 07/11/18 0524 Prothrombin Time 24.3 seconds H 07/11/18 0524 Prothrombin Time 24.7 seconds H 07/10/18 2258 Prothromb Time International Ratio 2.18 07/10/18 2258 Activated Partial Thromboplast Time 39 seconds H 07/10/18 1245 Prothromb Time International Ratio 2.41 07/10/18 1245 Prothrombin Time 26.7 seconds H 07/10/18 1245 White Blood Count 11.9 k/uL H 07/10/18 1245 Hemoglobin 9.9 g/dL L 07/10/18 1245 Hematocrit 33.1 % L 07/10/18 1245 Platelet Count 204 K/uL 07/10/18 1245 White Blood Count 8.8 k/uL 07/14/18 0602 Hemoglobin 10.8 g/dL L 07/14/18 0602 Hematocrit 35.1 % L 07/14/18 0602 Platelet Count 261 K/uL 07/14/18 0602 White Blood Count 9.0 k/uL 07/12/18 0517 Hemoglobin 10.1 g/dL L 07/12/18 0517 Hematocrit 31.7 % L 07/12/18 0517 Platelet Count 224 K/uL 07/12/18 0517 [facility] LAB *LIVE* [address] [facility] [address] EDY BURNETT M.D., DIRECTOR OF LABORATORY SERVICES DANIAL NUNEZ M.D., PATHOLOGIST RUN DATE: 07/12/18 Specimen Inquiry Report PAGE 1 RUN TIME: 1115 PATIENT: GEORGE ROY ACCT: [id number] LOC: ICU U: [id number] AGE/SX: 58/M ROOM: [facility] RE07/10/[address]: ANTHONY DUQUE MD : 1960 BED: 260 DIS: STATUS: ADM IN TLOC: SPEC #: [id number] ЕЛЕНА: 07/10/18-124 STATUS: COMP REQ #: [id number] RECD: 07/10/[address] [facility] DR: ANTHONY DUQUE MD SOURCE: IDALIA ENTR: 07/10/18-[address] [facility] [address]: LENIN ANTONIO APRN AVIONICS TECHNICIAN-C SPDESC: ORDERED: CULT URINE COMMENTS: Comments: please run on urine collected in - thanks Procedure Result Verified URINE CULTURE Final 07/12/18-1114 Organism 1 YEAST SPECIES >100,000 COL/ML [facility] *LIVE* [address] [facility] [address] EDY BURNETT M.D., DIRECTOR OF LABORATORY SERVICES DANIAL NUNEZ M.D., PATHOLOGIST RUN DATE: 07/16/18 Specimen Inquiry Report PAGE 1 RUN TIME: 1033 PATIENT: GEORGE ROY Mata ACCT: [id number] LOC: MED U: [id number] AGE/SX: 58/M ROOM: [facility]7 RE07/10/[address]: ANTHONY DUQUE MD : 1960 BED: 277 DIS: STATUS: ADM IN TLOC: SPEC #: [id number] ЕЛЕНА: 07/10/18 STATUS: COMP REQ #: [id number] RECD: 07/10/[address] [facility] DR: TWIN REYESP- SOURCE: BLOOD PER ENTR: 07/10/[address]: LENIN ANTONIO APRN AVIONICS TECHNICIAN-C SPDESC: ORDERED: BCGS, CULT BLOOD Procedure Result Verified BLOOD CULTURE GRAM STAIN Final 07/11/18-134 ANAEROBIC BOTTLE POSITIVE GRAM POSITIVE COCCI POSITIVE BLOOD CULTURE GRAM STAIN REPORT CALLED TO: LUCIANA RODRIGUEZ RN DATE/TIME REPORT CALLED: 07-11-18 2561 BY JIGNESH BLOOD CULTURE Final 07/16/18-1032 Organism 1 STAPHYLOCOCCUS AUREUS GROWTH PRESENT IN THE ANAEROBIC BOTTLE NO GROWTH IN AEROBIC BOTTLE AT THIS TIME Called to Khushbu in Pharmacy. [facility] RX --------- --- AMPICILLIN/SULBACTAM S CEFAZOLIN S CIPROFLOXACIN >=8 R CLINDAMYCIN >=8 R ERYTHROMYCIN >=8 R GENTAMICIN <=0.5 S LEVOFLOXACIN >=8 R LINEZOLID 2 S OXACILLIN 0.5 S BENZYLPENICILLIN >=0.5 R RIFAMPIN <=0.5 S TETRACYCLINE <=1 S TRIMETHOPRIM/SULFAMETHOXAZOLE <=10 S VANCOMYCIN 1 S END OF REPORT [facility] *LIVE* [address] [facility] [address] EDY BURNETT M.D., DIRECTOR OF LABORATORY SERVICES DANIAL NUNEZ M.D., PATHOLOGIST RUN DATE: 07/16/18 Specimen Inquiry Report PAGE 1 RUN TIME: 0825 --- --------- PATIENT: GEORGE ROY ACCT: [id number] LOC: MED U: [id number] AGE/SX: 58/M ROOM: 2277 RE07/10/[address]: ANTHONY DUQUE MD : 1960 BED: 277 DIS: STATUS: ADM IN TLOC: SPEC #: [id number] ЕЛЕНА: 07/10/18 STATUS: COMP REQ #: [id number] RECD: 07/10/[address] [facility] DR: TWIN REYES [facility]- SOURCE: BLOOD ENTR: 07/10/[address]: ANTHONY DUQUE MD [facility]: LENIN ANTONIO APRN [facility]- ORDERED: CULT BLOOD - Procedure Result Verified BLOOD CULTURE Final 07/16/18 NO GROWTH AFTER 5 DAYS IN BOTH THE AEROBIC AND ANAEROBIC BOTTLES. Condition: Improved Discharge: [facility]pc ([facility]) PT/OT Follow Up For: OT For ADL's, PT Evaluation and Treat Discharge Code Status: DNR, DNI Follow-Up Labs: Finger Sticks (AC and HS), Other (CBC, CMP, Magnesium level in one week) Treatments: Wound Care, Other (Muñoz catheter care, osotomy care, line (PICC) care) Time Spent: > 30 min Discharge Instructions Home Meds Active Scripts Oxycodone Hcl (OXYCONTIN) 20 Mg Tab.er.12h, 20 MG PO Q12H for 7 Days, #14 TAB 0 Refills Prov:ANTHONY DUQUE MD 07/17/18 Oxycodone Hcl (OXYCODONE HCL) 5 Mg Tablet, 5-10 MG PO Q6H PRN for PAIN for 7 Days, #35 TAB 0 Refills Prov:ANTHONY DUQUE MD 07/17/18 Nystatin (NYAMYC) 15 Gm Powder, 0 GM TP BID for 14 Days, #1 BOT 1 Refill Prov:ANTHONY DUQUE MD 07/17/18 Insulin Regular, Human (HUMULIN R) 100 Unit/1 Ml Vial, 3-15 UNIT SC SS PRN for SLIDING SCALE INSULIN for 30 Days, #1 VIAL 6 Refills Prov:ANTHONY DUQUE MD 07/17/18 Insulin NPH Hum/Reg Insulin Hm (Humulin 70-30 Vial) 100 Unit/Ml (70-30) Vial, 20 UNIT SUBQ BIDBS for 30 Days, #2 VIAL 6 Refills Prov:ANTHONY DUQUE MD 07/17/18 Cefazolin Sodium (CEFAZOLIN SODIUM) 1 Gm Vial.port, 2 GM IVP Q8H@0230,1030,1830 for 38 Days, VIAL 0 Refills Ancef 2gm IV q8hrs for 38 more days (completing on 08/24/18) Prov:ANTHONY DUQUE MD 07/17/18 Cefadroxil Hydrate (CEFADROXIL) 500 Mg Capsule, 500 MG PO BID for 30 Days, #60 CAPSULE 9 Refills To start after completion of the IV Ancef. Prov:ANTHONY DUQUE MD 07/17/18 Ferrous Sulfate (FERROUS SULFATE) 325 Mg Tablet, 325 MG PO BID for 30 Days, #60 TAB Prov:DANIAL RAMIREZ DO 05/11/18 Oxybutynin Chloride (OXYBUTYNIN CHLORIDE) 5 Mg Tablet, 5 MG PO QDAY for 14 Days, #14 TAB Prov:DANIAL RAMIREZ DO 05/11/18 Ondansetron (ONDANSETRON ODT) 4 Mg Tab.rapdis, 1 TAB PO Q12H PRN for NAUSEA, #30 TAB 1 Refill Prov:JOHN DUQUE MD 05/09/18 Atorvastatin Calcium (ATORVASTATIN CALCIUM) 40 Mg Tablet, 1 TAB PO QHS, #90 TAB 1 Refill Prov:LENIN ANTONIO APRN 02/21/18 Amitriptyline Hcl (AMITRIPTYLINE HCL) 25 Mg Tablet, 25 MG PO QHS, #90 TAB 1 Refill Prov:LENIN ANTONIO APRN 01/30/18 [Ostomy Supplies] No Conflict Check Prov:LENIN ANTONIO APRN 12/21/17 Metoprolol Succinate (TOPROL XL) 50 Mg Tab.er.24h, 0.5 TAB PO QDAY, #30 TAB 5 Refills Prov:LENIN ANTONIO APRN 03/20/17 Reported Medications Multivitamin With Minerals (MULTIPLE VITAMIN) 1 Each Tablet, 1 EACH PO QAM, TAB 07/10/18 Vitamin B Complex (VITAMIN B COMPLEX) 1 Each Capsule, 1 EACH PO QAM, CAPSULE 07/10/18 Melatonin (MELATONIN) 3 Mg Tablet, 6 MG PO QHS 07/10/18 Magnesium Chloride (MAG64) 64 Mg Tablet.er, 128 MG PO BID 07/10/18 Metformin Hcl (METFORMIN HCL) 500 Mg Tablet, 2 TAB PO BID, TAB 07/10/18 Trazodone Hcl (TRAZODONE HCL) 50 Mg Tablet, 50 MG PO QHS 07/10/18 Citalopram Hydrobromide (CELEXA) 20 Mg Tablet, 20 MG PO QAM, #5 TAB 07/10/18 Famotidine (FAMOTIDINE) 20 Mg Tablet, 20 MG PO BID, TAB 07/10/18 Cholestyramine (With Sugar) (QUESTRAN PACKET) 4 Gm Powd.pack, 4 GM PO BIDBS 07/10/18 Furosemide (FUROSEMIDE) 40 Mg Tablet, 2 TAB PO QAM, TAB 07/10/18 Gabapentin (GABAPENTIN) 300 Mg Capsule, 600 MG PO DAILY, CAPSULE take @ 1500 07/10/18 Gabapentin (GABAPENTIN) 300 Mg Capsule, 1200 MG PO BID, CAPSULE 07/10/18 Pantoprazole Sodium (PANTOPRAZOLE SODIUM) 40 Mg Tablet.dr, 40 MG PO QDAY, TAB.SR 05/08/18 Oxygen (OXYGEN) Inha, 2 L INH, L 12/26/17 Aspirin (ASPIRIN) 81 Mg Tab.chew, 81 MG PO QDAY, TAB.CHEW 12/02/17 Discontinued Reported Medications Insulin Lispro 100 Un/Ml Pen (HUMALOG 3 ML PEN) 100 Unit/1 Ml Insuln.pen, 100 UNIT SQ SS, DIS.SYR 07/10/18 Hum Insulin NPH/Reg Insulin Hm (Humulin 70/30 Kwikpen) 100 Unit/1 Ml Insuln.pen, 60 UNITS SC QAM 07/10/18 Hum Insulin NPH/Reg Insulin Hm (Humulin 70/30 Kwikpen) 100 Unit/1 Ml Insuln.pen, 55 UNIT SC HS 07/10/18 Zolpidem Tartrate (AMBIEN) 5 Mg Tablet, 1 TAB PO QHS, TAB 07/10/18 Miconazole Nitrate (Desenex) 2 % Powder, 85 GM TOP BID 07/10/18 Diphenhydramine Hcl (DIPHENHYDRAMINE HCL) 25 Mg Tablet, 25 MG PO QHS, TAB 07/10/18 Oxycodone Hcl (OXYCODONE HCL) 5 Mg Tablet, 20 MG PO Q6H PRN for PAIN 07/10/18 Insulin Lispro 100 Un/Ml Pen (HUMALOG 3 ML PEN) 100 Unit/1 Ml Insuln.pen, 30 UNIT SQ TIDAC, DIS.SYR 07/10/18 Discontinued Scripts Trazodone Hcl (TRAZODONE HCL) 50 Mg Tablet, 25-50 MG PO QHS PRN for insomnia for 30 Days, #30 TAB Prov:DANIAL RAMIREZ DO 05/11/18 Duloxetine Hcl (CYMBALTA) 30 Mg Capsule.dr, 30 MG PO QDAY, #30 CAP Prov:JOHN DUQUE MD 05/09/18 Melatonin (MELATONIN) 3 Mg Tablet, 3 MG PO QHS, #30 TAB Prov:JOHN DUQUE MD 05/09/18 Insulin Glargine 100 Un/Ml Pen (LANTUS SOLOSTAR PEN) 100 Unit/1 Ml Insuln.pen, 25-60 UNIT SUBQ DIRECTED, #5 UNITS Take 60 u sq q am and 25u sq q pm Prov:JOHN DUQUE MD 05/09/18 Insulin Aspart 100 Un/Ml Pen (NOVOLOG FLEXPEN) 100 Unit/1 Ml Insuln.pen, 30 UNIT SUBQ TIDAC, #1 VIAL Prov:JOHN DUQUE MD 05/09/18 Insulin Glargine 100 Un/Ml Pen (LANTUS SOLOSTAR PEN) 100 Unit/1 Ml Insuln.pen, 72 UNIT SUBQ QAM, #3 ML Prov:JOHN DUQUE MD 05/09/18 Insulin Glargine 100 Un/Ml Pen (LANTUS SOLOSTAR PEN) 100 Unit/1 Ml Insuln.pen, 65 UNIT SUBQ QHS, #3 ML Prov:JOHN DUQUE MD 05/09/18 Insulin Aspart 100 Un/Ml Pen (NOVOLOG FLEXPEN) 100 Unit/1 Ml Insuln.pen, 30 UNIT SUBQ TIDAC, #3 ML Prov:JOHN DUQUE MD 05/09/18 Gabapentin (GABAPENTIN) 600 Mg Tablet, 600 MG PO TID, #270 TAB 1 Refill Prov:LENIN ANTONIO APRN-Mario 02/05/18 Warfarin Sodium (COUMADIN) 5 Mg Tablet, 1-1.5 TAB PO QDAY@13, #45 TAB 5 Refills 1.5 tabs every monday and 1 tab all other days Prov:LENIN ANTONIO APRN-Mario 01/31/18 Furosemide (FUROSEMIDE) 40 Mg Tablet, 40 MG PO QDAY, #30 TAB Prov:RODRIGO BARRIGA DO 01/11/18 Magnesium Oxide (MAGNESIUM OXIDE) 400 Mg Tablet, 1 TAB PO DAILY, #180 TAB 2 Refills Prov:JOHN DUQUE MD 12/21/17 NYSTATIN 562928 UNT/ML Topical Cream (NYSTATIN 340291 UNT/ML Topical Cream) 15 Gm Cream..g., 1 JAEL TP BID, #120 GM 2 Refills Apply to yeast infection twice daily until resolved then treat the area once daily M, W, F Prov:LENIN ANTONIO APRN-C 12/19/17 Diet: Diabetic Activity: As Tolerated (with assistance) Special Instructions: Follow up at [facility]. Continue Home oxygen at 2-3L continuous. Change Muñoz cath every 3-4 weeks. Copies to: [facility] ; Venous Thromboembolism Antithrombotics Is Pt On Any Antithrombotics?: No (possible upcoming procedure) ANTHONY DUQUE MD Jul 17, 2018 11:56
[2018-07-17] MEDS: INSULIN HUM REG 100 UN/ML 3 ML VIAL SC PRN (12:11)
[2018-07-17] MEDS ORDERED: ceFAZolin(*) 2GM/D5W 50ML 50 ML IVPB SCH (18:30)
[2018-07-18] MEDS ORDERED: OXYC20TA99 PO (16:37)
[2018-07-18] MEDS ORDERED: OXYC5TAB38 PO (16:37)
== END 2018-07-17 15:31 | disposition home or self-care (01) | DRG 91 ==
LOC: ER 12:35 → ICU 14:15 → MED 07-12 12:00
PROVIDERS: ADMIT Internal Medicine; ATTEND Internal Medicine
PROC: 02HV33Z Insertion of Infusion Device into Superior Vena Cava, Percutaneous Approach (ICD-10-PCS; principal; 2018-07-10)
PROC: B548ZZA Ultrasonography of Superior Vena Cava, Guidance (ICD-10-PCS; 2018-07-10)
PROC: 30243K1 Transfusion of Nonautologous Frozen Plasma into Central Vein, Percutaneous Approach (ICD-10-PCS; 2018-07-10)
DX: T85.730A Infection and inflammatory reaction due to ventricular intracranial (communicating) shunt, initial encounter (principal); A41.01 Sepsis due to Methicillin susceptible Staphylococcus aureus; B37.49 Other urogenital candidiasis; E87.2 Acidosis; G82.20 Paraplegia, unspecified; Z68.41 Body mass index [BMI] 40.0-44.9, adult; E87.1 Hypo-osmolality and hyponatremia; Z51.5 Encounter for palliative care; R56.9 Unspecified convulsions; E11.65 Type 2 diabetes mellitus with hyperglycemia; Q05.9 Spina bifida, unspecified; T83.511A Infection and inflammatory reaction due to indwelling urethral catheter, initial encounter; L89.329 Pressure ulcer of left buttock, unspecified stage; G47.33 Obstructive sleep apnea (adult) (pediatric); R31.9 Hematuria, unspecified; N31.9 Neuromuscular dysfunction of bladder, unspecified; E83.42 Hypomagnesemia; I11.0 Hypertensive heart disease with heart failure; I50.9 Heart failure, unspecified; E78.00 Pure hypercholesterolemia, unspecified; K21.9 Gastro-esophageal reflux disease without esophagitis; G89.29 Other chronic pain; F41.8 Other specified anxiety disorders; D64.9 Anemia, unspecified; M31.6 Other giant cell arteritis; I25.10 Atherosclerotic heart disease of native coronary artery without angina pectoris; E66.01 Morbid (severe) obesity due to excess calories; I25.2 Old myocardial infarction; Z86.711 Personal history of pulmonary embolism; Z86.718 Personal history of other venous thrombosis and embolism; Z88.1 Allergy status to other antibiotic agents; Z88.0 Allergy status to penicillin; Z88.8 Allergy status to other drugs, medicaments and biological substances; Z79.4 Long term (current) use of insulin; Z90.49 Acquired absence of other specified parts of digestive tract; Z91.041 Radiographic dye allergy status; Z87.440 Personal history of urinary (tract) infections; Z86.14 Personal history of Methicillin resistant Staphylococcus aureus infection; Z93.3 Colostomy status
CPT/HCPCS: 36415; 36416; 36569; 71045; 76937; 81001; 82040; 82247; 82310; 82374; 82435; 82565; 82947; 82948; 83605; 83735; 84075; 84132; 84155; 84295; 84450; 84460; 84484; 84520; 85025; 85610; 85730; 86900; 86901; 87040; 87077; 87088; 87186; 93005; 95819; 96361; 96365; 96375; 97161; 97163; 97165; 99285; C1751; J0690; J0692; J1170; J1650; J1815; J2001; J2060; J2405; J2997; J3243; J3430; J3475; J7030; J7050; P9017

== ENCOUNTER → 2018-07-20 | Outpatient (REF) | payer MEDICARE, MEDICAID ==
[2017-12-26 12:06] VITALS: BMI 48.4
[~2018-07-20] MED LIST changes: +CEFA1VIA IVP; +CHOL4PAC2 PO; +DIPH-618 PO; +HUM100IN SC; +HUM100VI2 SUBQ; +INSU100V26 SC; +MICO45PO TOP; +MULT-1335 PO; +VITA1CAP46 PO; +ZOLP-1 PO; +[UNRECOGNIZED DRUG - CODE] PO
== END ==
LOC: ZZLCC 21:35
PROVIDERS: ATTEND Nurse Practitioner Family
DX: A41.9 Sepsis, unspecified organism (principal); E11.9 Type 2 diabetes mellitus without complications; E83.42 Hypomagnesemia
CPT/HCPCS: 82040; 82247; 82310; 82374; 82435; 82565; 82947; 83735; 84075; 84132; 84155; 84295; 84450; 84460; 84520; 85027

== ENCOUNTER 2018-07-23 12:16 | Outpatient (RCR) | payer MEDICARE, MEDICAID ==
[2017-12-26 12:06] VITALS: BMI 48.4
[2018-07-23 12:58] VITALS: BP 158/100
[2018-07-23] MEDS ORDERED: MAGNESIUM SUL* 2 GM/50 ML IVPB 50 ML IVPB ONE (13:10)
[2018-07-23 14:18] VITALS: BP 139/65
[2018-07-24] MEDS ORDERED: OXYC20TA99 PO (17:45)
[2018-08-10] MEDS ORDERED: OXYC20TA99 PO (16:44)
[2018-08-17] MEDS ORDERED: OXYC-830 PO (16:10)
== END 2018-08-15 09:36 | disposition home or self-care (01) ==
LOC: SPU 12:16
PROVIDERS: ATTEND Nurse Practitioner Family
DX: Z02.9 Encounter for administrative examinations, unspecified (principal)
CPT/HCPCS: J3475

== ENCOUNTER → 2018-07-23 | Outpatient (REF) | payer MEDICARE, MEDICAID ==
[2017-12-26 12:06] VITALS: BMI 48.4
[2018-07-23 08:10] LABS: PLATELET COUNT, AUTOMATED 261 K/uL (150-450)
== END ==
LOC: ZZLCC 07:49
PROVIDERS: ATTEND Nurse Practitioner Family
DX: A41.9 Sepsis, unspecified organism (principal); E11.9 Type 2 diabetes mellitus without complications; E83.42 Hypomagnesemia
CPT/HCPCS: 82040; 82247; 82310; 82374; 82435; 82565; 82947; 83735; 84075; 84132; 84155; 84295; 84450; 84460; 84520; 85025

== ENCOUNTER → 2018-07-24 | Outpatient (REF) | payer MEDICARE, MEDICAID ==
[2017-12-26 12:06] VITALS: BMI 48.4
== END ==
LOC: ZZLCC 12:24
PROVIDERS: ATTEND Nurse Practitioner Family
DX: A41.9 Sepsis, unspecified organism (principal); E11.9 Type 2 diabetes mellitus without complications; E83.42 Hypomagnesemia
CPT/HCPCS: 82040; 82247; 82310; 82374; 82435; 82565; 82947; 83735; 84075; 84132; 84155; 84295; 84450; 84460; 84520

== ENCOUNTER → 2018-07-26 | Outpatient (REF) | payer MEDICARE, MEDICAID ==
[2017-12-26 12:06] VITALS: BMI 48.4
== END ==
LOC: ZZLCC 08:49
PROVIDERS: ATTEND Nurse Practitioner Family
DX: E83.42 Hypomagnesemia (principal); E11.9 Type 2 diabetes mellitus without complications
CPT/HCPCS: 82040; 82247; 82310; 82374; 82435; 82565; 82947; 83735; 84075; 84132; 84155; 84295; 84450; 84460; 84520

== ENCOUNTER → 2018-08-03 | Outpatient (REF) | payer MEDICARE, MEDICAID ==
[2017-12-26 12:06] VITALS: BMI 48.4
[2018-08-03 13:41] LABS: PLATELET COUNT, AUTOMATED 309 K/uL (150-450)
== END ==
LOC: ZZLCC 13:16
PROVIDERS: ATTEND Nurse Practitioner Family
DX: L53.9 Erythematous condition, unspecified (principal)
CPT/HCPCS: 85025; 86140

== ENCOUNTER → 2018-08-24 | Outpatient (REF) | payer MEDICARE, MEDICAID ==
[2017-12-26 12:06] VITALS: BMI 48.4
[~2018-08-24] MED LIST changes: -METR-160 PO; +METR500T54 PO; +OXYC-830 PO; +PREG75CA60 PO
[2018-08-24 16:17] LABS: PLATELET COUNT, AUTOMATED 265 K/uL (150-450)
== END ==
LOC: ZZLCC 16:02
PROVIDERS: ATTEND Nurse Practitioner Family
DX: A41.9 Sepsis, unspecified organism (principal); E11.65 Type 2 diabetes mellitus with hyperglycemia; Q05.9 Spina bifida, unspecified; G47.30 Sleep apnea, unspecified; I74.9 Embolism and thrombosis of unspecified artery; Z96.0 Presence of urogenital implants; E66.01 Morbid (severe) obesity due to excess calories; E83.42 Hypomagnesemia; N31.9 Neuromuscular dysfunction of bladder, unspecified; M62.81 Muscle weakness (generalized); R26.2 Difficulty in walking, not elsewhere classified; G47.00 Insomnia, unspecified; F32.9 Major depressive disorder, single episode, unspecified
CPT/HCPCS: 85025; 86140

== ENCOUNTER → 2018-08-27 | Outpatient (REF) | payer MEDICARE, MEDICAID ==
[2017-12-26 12:06] VITALS: BMI 48.4
[~2018-08-27] MED LIST changes: +MORP100S32 PO
== END ==
LOC: ZZLCC 17:59
PROVIDERS: ATTEND Nurse Practitioner Family
DX: R50.9 Fever, unspecified (principal)
CPT/HCPCS: 81001; 85027; 86140; 87088

== ENCOUNTER → 2018-08-27 | Outpatient (CLI) | payer MEDICARE, MEDICAID ==
[2017-12-26 12:06] VITALS: BMI 48.4
== END ==
LOC: AMB 16:07
PROVIDERS: ATTEND Nurse Practitioner
DX: A41.9 Sepsis, unspecified organism (principal); R53.1 Weakness
CPT/HCPCS: A0427

== ENCOUNTER → 2018-08-28 | Outpatient (CLI) | payer MEDICAID, MEDICARE, OTHER ==
[2017-12-26 12:06] VITALS: BMI 48.4
== END ==
LOC: AMB 14:25
PROVIDERS: ATTEND Nurse Practitioner
DX: R53.1 Weakness (principal); Q05.9 Spina bifida, unspecified
CPT/HCPCS: A0425; A0428